=== PATIENT | male | born 1980 | race American Indian/Alaskan Native ===

== ENCOUNTER 2018-12-29 16:26 | Emergency (ER) | payer SELFPAY ==
[2018-12-29 16:54] VITALS: BP 125/81
--- NOTE | 2018-12-29 17:35 | Event Note ---
ED Screening Note Date of service: 12/29/18 Time: 17:05 ED Screening Note: Reports cp started 2 days ago to midsternal area. reports cough and chills. smokes once per week. Pain is 6/10 on/off without radiation. Denies N/V. Denies SOB. Denies recent surgery, hormonal therapy of long distance travel. Denies h/o Blood clots NL wob. A and ox3 . no acute distress This initial assessment/diagnostic orders/clinical plan/treatment(s) is/are subject to change based on patients health status, clinical progression and re- assessment by fellow clinical providers in the ED. Further treatment and workup at subsequent clinical providers discretion. Patient/guardian urged not to elope from the ED as their condition may be serious if not clinically assessed and managed. Initial orders include: xr, ekg labs
[2018-12-29] MEDS ORDERED: ASPIRIN 325 MG TAB PO ONE (17:37)
--- NOTE | 2018-12-29 18:04 | XRay Report ---
CHEST 2 VIEWS INDICATION / CLINICAL INFORMATION: MAIN: Chest Pain for 2 to 3 days. COMPARISON: None available. FINDINGS: SUPPORT DEVICES: None. HEART / MEDIASTINUM: No significant abnormality. LUNGS / PLEURA: No significant pulmonary or pleural abnormality. No pneumothorax. ADDITIONAL FINDINGS: No significant additional findings. IMPRESSION: 1. No significant abnormality. Signer Name: Tamy Dubon MD Signed: 12/29/2018 6:00 PM Workstation Name: [id number]
[2018-12-29 18:49] LABS: Basophils % (Auto) 0.8 % (0.0-1.8); Eosinophils # (Auto) 0.1 K/mm3 (0.0-0.4); Eosinophils % (Auto) 2.7 % (0.0-4.3); Hematocrit 37.4 % (35.5-45.6); Hemoglobin 12.7 gm/dl (11.8-15.2); Lymphocytes # (Auto) 0.8 K/mm3 (1.2-5.4); Lymphocytes % (Auto) 20.4 % (13.4-35.0); Mean Corpuscular HGB Conc 34 % (32-34); Mean Corpuscular Volume 98 fl (84-94); Monocytes # (Auto) 0.5 K/mm3 (0.0-0.8); Monocytes % (Auto) 12.8 % (0.0-7.3); Platelet Count 163 K/mm3 (140-440); Red Blood Count 3.83 M/mm3 (3.65-5.03); Red Cell Distribution Width 13.3 % (13.2-15.2)
[2018-12-29 19:12] LABS: Alanine Aminotransferase 21 units/L (7-56); Albumin 3.9 g/dL (3.9-5); BUN/Creatinine Ratio 8; Blood Urea Nitrogen 9 mg/dL (9-20); Hemolysis Index 16
[2018-12-29] MEDS ORDERED: LIDOCAINE VISCOUS 2% 15 ML ORAL LIQD PO ONE (19:46)
[2018-12-29] MEDS ORDERED: ALUM-MAG HYDROXIDE-SIMETHICONE 200-200-20MG/5ML ORAL LIQD 30 ML PO ONE (19:46)
--- NOTE | 2018-12-29 22:05 | Emergency Department Report ---
ED Chest Pain HPI - General Chief Complaint: Chest Pain Stated Complaint: SEVERE CHEST PAIN Time Seen by Provider: 12/29/18 17:30 Source: patient Mode of arrival: Ambulatory Limitations: No Limitations - History of Present Illness Initial Comments: Patient is a 38-year-old [place] male with no past medical history who presents to the ED with complaint of acute onset persistent anterior chest wall pain for the last 2 days. Patient states that the pain is worse with movement, inhalation, palpation or cough. Patient admits to smoking "a few cigarettes a week". Patient denies shortness of breath, dizziness, palpitation, fever, chills, cough, nausea, vomiting, abdominal pain, easiness, headache, fever, chills, heavy lifting or fall and syncope. MD Complaint: chest pain -: Sudden, days(s) (2) Onset: during rest, awoke with symptoms Pain Location: substernal Pain Radiation: none Severity: moderate Severity scale (0 -10): 5 Quality: aching, sharp Consistency: constant Improves With: nothing Worsens With: exertion, inspiration, palpation, movement re: denies: nausea, vomting, diaphoresis, dyspnea, sense of impending doom, other Other Symptoms: denies: cough, fever, syncope, rash, acid taste in mouth, leg swelling, palpitations, burping Treatments Prior to Arrival: none - Related Data On Oral Contraceptives: No Previous Rx's Medication Instructions Recorded Last Taken Type Naproxen [Naprosyn TAB] 375 mg PO BID #20 tablet 12/20/13 Unknown Rx Penicillin Vk [Veetids TAB] 500 mg PO QID #40 tablet 12/20/13 Unknown Rx Clindamycin [Clindamycin CAP] 300 mg PO BID #20 cap 12/22/13 Unknown Rx Naproxen 500 mg PO Q12H PRN #20 tablet 12/29/18 Unknown Rx raNITIdine HCl [Zantac] 150 mg PO Q12H #30 tablet 12/29/18 Unknown Rx traMADol [Ultram 50 MG tab] 50 mg PO Q6HR PRN #12 tablet 12/29/18 Unknown Rx Allergies Allergy/AdvReac Type Severity Reaction Status Date / Time No Known Allergies Allergy Unverified 12/20/13 09:35 Heart Score - HEART Score History: Slightly suspicious EKG: Normal Age: < 45 Risk factors: 1-2 risk factors Troponin: < normal limit HEART Score: 1 - Critical Actions Critical Actions: 0-3 pts:0.9-1.7%risk of adverse cardiac event.Candidate for discharge ED Review of Systems ROS: Stated complaint: SEVERE CHEST PAIN Other details as noted in HPI Constitutional: denies: chills, fever Eyes: denies: eye pain, eye discharge, vision change ENT: denies: ear pain, throat pain Respiratory: denies: cough, shortness of breath, wheezing Cardiovascular: chest pain (Anterior chest wall pain). denies: palpitations, dyspnea on exertion, syncope, paroxysmal nocturnal dyspnea Endocrine: no symptoms reported Gastrointestinal: denies: abdominal pain, nausea, vomiting, diarrhea, constipation, hematemesis, melena Genitourinary: denies: urgency, dysuria Musculoskeletal: denies: back pain, joint swelling, arthralgia Skin: denies: rash, lesions, change in color, pruritus Neurological: denies: headache, weakness, paresthesias Psychiatric: denies: anxiety, depression Hematological/Lymphatic: denies: easy bleeding, easy bruising ED Past Medical Hx - Past Medical History Previous Medical History?: No - Surgical History Past Surgical History?: No - Social History Smoking Status: Current Some Day Smoker Substance Use Type: Marijuana - Medications Home Medications: Home Medications Medication Instructions Recorded Confirmed Last Taken Type Naproxen [Naprosyn TAB] 375 mg PO BID #20 tablet 12/20/13 Unknown Rx Penicillin Vk [Veetids TAB] 500 mg PO QID #40 tablet 12/20/13 Unknown Rx Clindamycin [Clindamycin CAP] 300 mg PO BID #20 cap 12/22/13 Unknown Rx Naproxen 500 mg PO Q12H PRN #20 tablet 12/29/18 Unknown Rx raNITIdine HCl [Zantac] 150 mg PO Q12H #30 tablet 12/29/18 Unknown Rx traMADol [Ultram 50 MG tab] 50 mg PO Q6HR PRN #12 tablet 12/29/18 Unknown Rx ED Physical Exam - General Limitations: No Limitations General appearance: alert, in no apparent distress - Head Head exam: Present: atraumatic, normocephalic, normal inspection - Eye Eye exam: Present: normal appearance, PERRL, EOMI. Absent: scleral icterus, conjunctival injection Pupils: Present: normal accommodation - ENT ENT exam: Present: normal exam, normal orophraynx, mucous membranes moist, TM's normal bilaterally, normal external ear exam - Neck Neck exam: Present: normal inspection, full ROM. Absent: tenderness, meningismus, lymphadenopathy - Respiratory Respiratory exam: Present: normal lung sounds bilaterally, chest wall tenderness. Absent: respiratory distress, wheezes, rales, rhonchi, accessory muscle use, decreased breath sounds, prolonged expiratory - Cardiovascular Cardiovascular Exam: Present: regular rate, normal rhythm, normal heart sounds. Absent: systolic murmur, diastolic murmur, rubs, gallop - GI/Abdominal GI/Abdominal exam: Present: soft, normal bowel sounds. Absent: tenderness, guarding, rebound, hyperactive bowel sounds, hypoactive bowel sounds, mass - Rectal Rectal exam: Present: deferred - Extremities Exam Extremities exam: Present: normal inspection, full ROM, normal capillary refill - Back Exam Back exam: Present: normal inspection, full ROM. Absent: tenderness, CVA tenderness (R), muscle spasm, paraspinal tenderness - Neurological Exam Neurological exam: Present: alert, oriented X3, CN II-XII intact, normal gait, reflexes normal - Psychiatric Psychiatric exam: Present: normal affect, normal mood - Skin Skin exam: Present: warm, dry, intact, normal color. Absent: rash ED Course Vital Signs 12/29/18 16:50 Temperature 99.2 F Pulse Rate 82 Respiratory 18 Rate Blood Pressure 125/81 O2 Sat by Pulse 100 Oximetry - Reevaluation(s) Reevaluation #1: 12/29/18 22:14 This is a 38-year-old male who presented to the ED with anterior chest pain constantly for 2 days. Patient admits to smoking cigarettes, but denies any other past medical history. In the ED, patient is alert and oriented 3 and is not in distress with normal vital signs. Lab test results were reviewed and are all unremarkable including initial and repeat troponin levels. Chest x-ray shows no acute cardiopulmonary abnormalities. Patient was treated with GI cocktail, and also given aspirin. Patient has a heart score of 1, is PERC negative and with SENAIT of 0. Patient was discharged home on pain medications and antacids and advised to follow-up with his primary care physician in 3-5 days for reevaluation. Patient was also referred to the production superintendent bond trader Dr. Barnett for follow-up. Patient was advised to return to the ED immediately if symptoms get worse. SENAIT score - Senait Score Age > 65: (0) No Aspirin use within the Past 7 Days: (0) No 3 or more CAD Risk Factors: (0) No 2 or more Angina events in past 24 hrs: (0) No Known CAD with more than 50% Stenosis: (0) No Elevated Cardiac Markers: (0) No ST Deviation Greater than 0.5mm: (0) No SENAIT Score: 0 ED Medical Decision Making - Lab Data Result diagrams: 12/29/18 18:13 12/29/18 18:13 - Radiology Data Radiology results: report reviewed, image reviewed Chest x-ray shows no acute cardiopulmonary abnormalities. - Medical Decision Making This is a 38-year-old male who presented to the ED with anterior chest pain constantly for 2 days. Patient admits to smoking cigarettes, but denies any other past medical history. In the ED, patient is alert and oriented 3 and is not in distress with normal vital signs. Lab test results were reviewed and are all unremarkable including initial and repeat troponin levels. Chest x-ray shows no acute cardiopulmonary abnormalities. Patient was treated with GI cocktail, and also given aspirin. Patient has a heart score of 1, is PERC negative and with SENAIT of 0. Patient was discharged home on pain medications and antacids and advised to follow-up with his primary care physician in 3-5 days for reevaluation. Patient was also referred to the production superintendent bond trader Dr. Barnett for follow-up. Patient was advised to return to the ED immediately if symptoms get worse. - Differential Diagnosis ACS; Pneumonia; Muscle strain; GERD Critical care attestation.: If time is entered above; I have spent that time in minutes in the direct care of this critically ill patient, excluding procedure time. ED Disposition Clinical Impression: Chest pain in adult, Anterior chest wall pain GERD (gastroesophageal reflux disease) Qualifiers: Esophagitis presence: without esophagitis Qualified Code(s): K21.9 - Gastro- esophageal reflux disease without esophagitis Disposition: TO HOME OR SELFCARE Is pt being admited?: No Does the pt Need Aspirin: No Condition: Stable Instructions: Chest Pain (ED), Costochondritis (ED), Gastroesophageal Reflux Disease (ED) Additional Instructions: Take medications with food, drink plenty of fluids and follow-up with your primary care physician in 5-7 days for reevaluation. Return to the ED immediately if symptoms get worse. Consider following up with Dr. Barnett the production superintendent for outpatient evaluation. Consider quitting tobacco smoking. Prescriptions: Naproxen 500 mg PO Q12H PRN #20 tablet PRN Reason: Pain , Severe (7-10) traMADol [Ultram 50 MG tab] 50 mg PO Q6HR PRN #12 tablet PRN Reason: Pain raNITIdine HCl [Zantac] 150 mg PO Q12H #30 tablet Referrals: PRIMARY CARE, [Primary Care Provider] - 3-5 Days ARNOLDO BARNETT MD [Staff Physician] - 3-5 Days Time of Disposition: 22:02 Print Language: [place]
== END 2018-12-29 19:00 | disposition home or self-care (01) ==
LOC: ED 16:26
DX: K21.9 Gastro-esophageal reflux disease without esophagitis (principal); F17.200 Nicotine dependence, unspecified, uncomplicated; F12.90 Cannabis use, unspecified, uncomplicated; Z79.899 Other long term (current) drug therapy
CPT/HCPCS: 36415; 71046; 80053; 84484; 85025; 93005; 93010; 99284

== ENCOUNTER 2021-04-20 07:23 | Inpatient (IN) | payer SELFPAY ==
[2021-04-20] MEDS ORDERED: ONDANSETRON 4 MG/2 ML INJ IV ONE (08:49)
[2021-04-20] MEDS ORDERED: SODIUM CHLORIDE 0.9% 1000 ML 1,000 ML IV ONE (08:49)
[2021-04-20 09:15] LABS: Hematocrit 23.4 % (35.5-45.6); Hemoglobin 7.8 gm/dl (11.8-15.2); Mean Corpuscular HGB Conc 34 % (32-34); Mean Corpuscular Volume 94 fl (84-94); Platelet Count 263 K/mm3 (140-440); Red Cell Distribution Width 12.9 % (13.2-15.2)
--- NOTE | 2021-04-20 09:34 | XRay Report ---
CHEST 2 VIEWS INDICATION: Wheezing. COMPARISON: 12/29/2018 FINDINGS: Support devices: None. Heart: Within normal limits. Lungs/pleura: The lungs are hyperinflated which could represent mild emphysematous changes. No evide nce for mass lesion, infiltrate, pleural effusion or pneumothorax. Additional findings: Old granulomatous disease is noted and unchanged. IMPRESSION: No acute findings. Mild hyperinflation. Signer Name: Julio Jones Jr, MD Signed: 04/20/2021 9:30 AM Workstation Name: [id number]
--- NOTE | 2021-04-20 09:36 | Event Note ---
ED Screening Note Date of service: 04/20/21 Time: 09:00 ED Screening Note: 40-year-old -[place] male that appears to be acutely in ill presents to the emergency room for 3-week history of nausea vomiting and diarrhea. Patient states his throat feels dry. He has intermittent abdominal pain just prior to having a stool. States he has never had the symptoms before. He reports he has had a 40 pound weight loss since March 29, 2021 who. He states he is has 5-6 stools a day. Currently denies any past medical history takes no meds on a daily basis has no known drug allergies and has no primary care provider. Patient social history he smokes cigarettes and marijuana but last used on March 29, 2021. He denies any alcohol use or abuse. This initial assessment/diagnostic orders/clinical plan/treatment(s) is/are subject to change based on patients health status, clinical progression and re- assessment by fellow clinical providers in the ED. Further treatment and workup at subsequent clinical providers discretion. Patient/guardian urged not to elope from the ED as their condition may be serious if not clinically assessed and managed. Initial orders include:
[2021-04-20 09:37] LABS: Alanine Aminotransferase 16 units/L (7-56); Blood Urea Nitrogen 54 mg/dL (9-20); Hemolysis Index 7
[2021-04-20 09:46] LABS: BUN/Creatinine Ratio 11
--- NOTE | 2021-04-20 09:56 | Emergency Department Report ---
HPI - General Chief Complaint: Nausea/Vomiting/Diarrhea Time Seen by Provider: 04/20/21 08:48 - HPI HPI: 40-year-old male presents to the emergency department with complaint of a 2-week history of generalized weakness, nausea with vomiting, diarrhea, and unintended weight loss. He is a tobacco smoker but denies any illicit drug use. He has not smoked any cigarettes since March 29. He has lost 40 pounds unintentionally since this time as well. He has intermittent abdominal pain that occurs just prior to having a bowel movement. The patient will have 5-6 episodes of diarrhea and/or loose stools per day, as well as some intermittent nausea with vomiting. He otherwise denies any past medical history. No recent travel or sick contacts at home. He has not taken anything for his symptoms prior to presentation today. ED Past Medical Hx - Social History Smoking Status: Current Some Day Smoker Substance Use Type: Marijuana - Medications Home Medications: Home Medications Medication Instructions Recorded Confirmed Last Taken Type Naproxen [Naprosyn TAB] 375 mg PO BID #20 tablet 12/20/13 Unknown Rx Penicillin Vk [Veetids TAB] 500 mg PO QID #40 tablet 12/20/13 Unknown Rx Clindamycin [Clindamycin CAP] 300 mg PO BID #20 cap 12/22/13 Unknown Rx Naproxen 500 mg PO Q12H PRN #20 tablet 12/29/18 Unknown Rx raNITIdine HCL [Zantac] 150 mg PO Q12H #30 tablet 12/29/18 Unknown Rx traMADoL [Ultram 50 MG tab] 50 mg PO Q6HR PRN #12 tablet 12/29/18 Unknown Rx ED Review of Systems ROS: Stated complaint: VOMITING/DIARRHEA (3WKS) Other details as noted in HPI Comment: All other systems reviewed and negative Constitutional: weakness. denies: fever Eyes: denies: eye pain, vision change ENT: denies: ear pain, throat pain Respiratory: denies: cough, shortness of breath Cardiovascular: denies: chest pain, palpitations Endocrine: unexplained weight loss Gastrointestinal: abdominal pain, nausea, vomiting, diarrhea Genitourinary: denies: dysuria, discharge Musculoskeletal: denies: back pain, arthralgia Skin: denies: rash, lesions Neurological: denies: headache, numbness, paresthesias Physical Exam - Physical Exam Vital Signs: Vital Signs 04/20/21 08:40 Temperature 99.3 F Pulse Rate 96 H Respiratory 20 Rate Blood Pressure 162/95 [Left] O2 Sat by Pulse 100 Oximetry Physical Exam: GENERAL: The patient is well-developed well-nourished. HENT: Normocephalic. Atraumatic. Patient has moist mucous membranes. EYES: Extraocular motions are intact. NECK: Supple. Trachea is midline. CHEST/LUNGS: Clear to auscultation. There is no respiratory distress noted. HEART/CARDIOVASCULAR: Regular. There is no tachycardia. There is no murmur. ABDOMEN: Abdomen is soft, nontender. Patient has hyperactive bowel sounds. There is no abdominal distention. SKIN: Skin is warm and dry. NEURO: The patient is awake, alert, and oriented. The patient is cooperative. The patient has no focal neurologic deficits. Normal speech. MUSCULOSKELETAL: There is no tenderness or deformity. There is no limitation range of motion. ED Course Vital Signs 04/20/21 08:40 Temperature 99.3 F Pulse Rate 96 H Respiratory 20 Rate Blood Pressure 162/95 [Left] O2 Sat by Pulse 100 Oximetry - Consultations Consultation #1: 04/20/21 11:48 I spoke to the slot floorman on-call, Dr. Corral, and he will consult on the patient. ED Medical Decision Making - Lab Data Result diagrams: 04/20/21 08:57 04/20/21 08:57 Lab Results 04/20/21 04/20/21 04/20/21 Range/Units 08:57 08:57 10:46 WBC 4.3 L (4.5-11.0) K/mm3 RBC 2.50 L (3.65-5.03) M/mm3 Hgb 7.8 L (11.8-15.2) gm/dl Hct 23.4 L (35.5-45.6) % MCV 94 (84-94) fl MCH 31 (28-32) pg MCHC 34 (32-34) % RDW 12.9 L (13.2-15.2) % Plt Count 263 (140-440) K/mm3 Add Manual Diff Complete Total Counted 100 Seg Neuts % (Manual) 68.0 (40.0-70.0) % Band Neutrophils % 0 % Lymphocytes % (Manual) 20.0 (13.4-35.0) % Reactive Lymphs % (Man) 0 % Monocytes % (Manual) 11.0 H (0.0-7.3) % Eosinophils % (Manual) 1.0 (0.0-4.3) % Basophils % (Manual) 0 (0.0-1.8) % Metamyelocytes % 0 % Myelocytes % 0 % Promyelocytes % 0 % Blast Cells % 0 % Nucleated RBC % Not Reportable Seg Neutrophils # Man 2.9 (1.8-7.7) K/mm3 Band Neutrophils # 0.0 K/mm3 Lymphocytes # (Manual) 0.9 L (1.2-5.4) K/mm3 Abs React Lymphs (Man) 0.0 K/mm3 Monocytes # (Manual) 0.5 (0.0-0.8) K/mm3 Eosinophils # (Manual) 0.0 (0.0-0.4) K/mm3 Basophils # (Manual) 0.0 (0.0-0.1) K/mm3 Metamyelocytes # 0.0 K/mm3 Myelocytes # 0.0 K/mm3 Promyelocytes # 0.0 K/mm3 Blast Cells # 0.0 K/mm3 WBC Morphology Not Reportable Hypersegmented Neuts Not Reportable Hyposegmented Neuts Not Reportable Hypogranular Neuts Not Reportable Smudge Cells Not Reportable Toxic Granulation Not Reportable Toxic Vacuolation Not Reportable Dohle Bodies Not Reportable Pelger-Huet Anomaly Not Reportable Karishma Rods Not Reportable Platelet Estimate Consistent w auto Clumped Platelets Not Reportable Plt Clumps, EDTA Not Reportable Large Platelets Not Reportable Giant Platelets Not Reportable Platelet Satelliting Not Reportable Plt Morphology Comment Not Reportable RBC Morphology Not Reportable Dimorphic RBCs Not Reportable Polychromasia Not Reportable Hypochromasia 1+ Poikilocytosis Not Reportable Anisocytosis Not Reportable Microcytosis Not Reportable Macrocytosis Not Reportable Spherocytes Not Reportable Pappenheimer Bodies Not Reportable Sickle Cells Not Reportable Target Cells Not Reportable Tear Drop Cells Not Reportable Ovalocytes Not Reportable Helmet Cells Not Reportable Bragg-Gowen Bodies Not Reportable [place] Rings Not Reportable [place] Cells Not Reportable Bite Cells Not Reportable Crenated Cell Not Reportable Elliptocytes Not Reportable Acanthocytes (Spur) Not Reportable Rouleaux Not Reportable Hemoglobin C Crystals Not Reportable Schistocytes Not Reportable Malaria parasites Not Reportable Angus Bodies Not Reportable Hem Pathologist Commnt No Sodium 137 (137-145) mmol/L Potassium 5.6 H (3.6-5.0) mmol/L Chloride 105.9 (98-107) mmol/L Carbon Dioxide 17 L (22-30) mmol/L Anion Gap 20 mmol/L BUN 54 H (9-20) mg/dL Creatinine 4.7 H (0.8-1.3) mg/dL Estimated GFR 17 ml/min BUN/Creatinine Ratio 11 % Glucose 100 (75-100) mg/dL Calcium 9.0 (8.4-10.2) mg/dL Phosphorus (2.5-4.5) mg/dL Magnesium (1.7-2.3) mg/dL Total Bilirubin < 0.20 (0.1-1.2) mg/dL AST 30 (5-40) units/L ALT 16 (7-56) units/L Alkaline Phosphatase 61 (35-129) units/L Troponin T < 0.010 (0.00-0.029) ng/mL Total Protein 7.7 (6.3-8.2) g/dL Albumin 3.0 L (3.9-5) g/dL Albumin/Globulin Ratio 0.6 % Lipase 36 (13-60) units/L TSH (0.270-4.200) mlU/mL 04/20/21 04/20/21 Range/Units 10:46 Unknown WBC (4.5-11.0) K/mm3 RBC (3.65-5.03) M/mm3 Hgb (11.8-15.2) gm/dl Hct (35.5-45.6) % MCV (84-94) fl MCH (28-32) pg MCHC (32-34) % RDW (13.2-15.2) % Plt Count (140-440) K/mm3 Add Manual Diff Total Counted Seg Neuts % (Manual) (40.0-70.0) % Band Neutrophils % % Lymphocytes % (Manual) (13.4-35.0) % Reactive Lymphs % (Man) % Monocytes % (Manual) (0.0-7.3) % Eosinophils % (Manual) (0.0-4.3) % Basophils % (Manual) (0.0-1.8) % Metamyelocytes % % Myelocytes % % Promyelocytes % % Blast Cells % % Nucleated RBC % Seg Neutrophils # Man (1.8-7.7) K/mm3 Band Neutrophils # K/mm3 Lymphocytes # (Manual) (1.2-5.4) K/mm3 Abs React Lymphs (Man) K/mm3 Monocytes # (Manual) (0.0-0.8) K/mm3 Eosinophils # (Manual) (0.0-0.4) K/mm3 Basophils # (Manual) (0.0-0.1) K/mm3 Metamyelocytes # K/mm3 Myelocytes # K/mm3 Promyelocytes # K/mm3 Blast Cells # K/mm3 WBC Morphology Hypersegmented Neuts Hyposegmented Neuts Hypogranular Neuts Smudge Cells Toxic Granulation Toxic Vacuolation Dohle Bodies Pelger-Huet Anomaly Karishma Rods Platelet Estimate Clumped Platelets Plt Clumps, EDTA Large Platelets Giant Platelets Platelet Satelliting Plt Morphology Comment RBC Morphology Dimorphic RBCs Polychromasia Hypochromasia Poikilocytosis Anisocytosis Microcytosis Macrocytosis Spherocytes Pappenheimer Bodies Sickle Cells Target Cells Tear Drop Cells Ovalocytes Helmet Cells Bragg-Gowen Bodies [place] Rings [place] Cells Bite Cells Crenated Cell Elliptocytes Acanthocytes (Spur) Rouleaux Hemoglobin C Crystals Schistocytes Malaria parasites Angus Bodies Hem Pathologist Commnt Sodium (137-145) mmol/L Potassium (3.6-5.0) mmol/L Chloride (98-107) mmol/L Carbon Dioxide (22-30) mmol/L Anion Gap mmol/L BUN (9-20) mg/dL Creatinine (0.8-1.3) mg/dL Estimated GFR ml/min BUN/Creatinine Ratio % Glucose (75-100) mg/dL Calcium (8.4-10.2) mg/dL Phosphorus 4.20 (2.5-4.5) mg/dL Magnesium 1.90 (1.7-2.3) mg/dL Total Bilirubin (0.1-1.2) mg/dL AST (5-40) units/L ALT (7-56) units/L Alkaline Phosphatase (35-129) units/L Troponin T (0.00-0.029) ng/mL Total Protein (6.3-8.2) g/dL Albumin (3.9-5) g/dL Albumin/Globulin Ratio % Lipase (13-60) units/L TSH 3.120 (0.270-4.200) mlU/mL - EKG Data -: EKG Interpreted by Me EKG shows normal: sinus rhythm, axis, intervals, QRS complexes (LVH), ST-T waves Rate: normal - EKG Data When compared to previous EKG there are: previous EKG unavailable Interpretation: LVH - Radiology Data Radiology results: report reviewed, image reviewed interpreted by me: Chest x-ray does not show any acute process. There are no pleural effusions, obvious pneumonia and there is no pneumothorax. No widened mediastinum. CT ABDOMEN AND PELVIS WITHOUT CONTRAST INDICATION / CLINICAL INFORMATION: Abd pain. TECHNIQUE: Axial CT images were obtained through the abdomen and pelvis without IV contrast. Sagittal and coronal reformatted images. All CT scans at this location are performed using CT dose reduction for ALARA by means of automated exposure control. COMPARISON: None available. FINDINGS: LOWER CHEST: There is subtle groundglass attenuation throughout the lung bases. No discrete infiltrate, mass, or effusion. No significant interstitial disease. LIVER: The liver is mildly enlarged but no parenchymal disease or focal mass is detected. GALLBLADDER: The gallbladder is contracted with no obvious abnormality. BILE DUCTS: No significant abnormality. PANCREAS: No significant abnormality. SPLEEN: No significant abnormality. The spleen measures 9 cm in length. ADRENALS: No si gnificant abnormality. KIDNEYS: There are a few scattered punctate renal calyceal stones in both kidneys. No ureteral stones, hydronephrosis, cystic disease or mass. STOMACH and SMALL BOWEL: No significant abnormality. COLON: No significant abnormality. APPENDIX: Not identified, correlate with surgical history. No inflammatory changes in the right lower quadrant. PERITONEUM: No free fluid. No free air. No fluid collection. LYMPH NODES: No significant adenopathy. AORTA and ARTERIES: No significant abnormality. IVC and VEINS: No significant abnormality. URINARY BLADDER: No significant abnormality. REPRODUCTIVE ORGANS: No significant abnormality. ADDITIONAL FINDINGS: None. SKELETAL SYSTEM: No significant abnormality. IMPRESSION: No acute inflammatory process is appreciated in the abdomen or pelvis. Punctate bilateral nephrolithiasis, nonobstructing. Mild hepatomegaly but no obvious parenchymal disease or mass. There is subtle groundglass attenuation in both lung bases which is a nonspecific finding. No evidence for mass, pneumonia or interstitial disease. This may represent smokers related change, correlate with the patient's history. - Medical Decision Making This patient presents to the emergency department with a complaint of a 2 to 3- week history of nausea, vomiting, diarrhea and unintentional weight loss. Labs shows acute renal failure with a GFR of 17, creatinine of 4.7, hyperkalemia with potassium of 5.6, and anemia with hemoglobin of 7.8. Patient has been given IV fluid resuscitation, antiemetic, and Kayexalate. Nephrology has been contacted and consulted. The patient will be admitted to the hospital for further evaluation and treatment was accepted for admission by the hospitalist, Dr. Christian. Critical Care Time: No Critical care attestation.: If time is entered above; I have spent that time in minutes in the direct care of this critically ill patient, excluding procedure time. ED Disposition Clinical Impression: Dehydration Nausea & vomiting Qualifiers: Vomiting type: unspecified Qualified Code(s): R11.2 - Nausea with vomiting, unspecified Diarrhea Qualifiers: Diarrhea type: unspecified type Qualified Code(s): R19.7 - Diarrhea, unspecified Acute renal failure Qualifiers: Acute renal failure type: unspecified Qualified Code(s): N17.9 - Acute kidney failure, unspecified Anemia Qualifiers: Anemia type: unspecified type Qualified Code(s): D64.9 - Anemia, unspecified Hypertension Qualifiers: Hypertension type: primary hypertension Qualified Code(s): I10 - Essential (primary) hypertension Disposition: 09 ADMITTED INPATIENT Is pt being admited?: Yes Condition: Fair Instructions: Hypertension (ED) Referrals: PRIMARY CAREMD [Primary Care Provider] - 3-5 Days Time of Disposition: 11:46
[2021-04-20 10:09] LABS: Basophils % (Manual) 0 % (0.0-1.8); Total Cells Counted 100
[2021-04-20 10:10] LABS: Hypochromasia 1+; Platelet Estimate Consistent w Auto
--- NOTE | 2021-04-20 10:52 | Cat Scan Report ---
CT ABDOMEN AND PELVIS WITHOUT CONTRAST INDICATION / CLINICAL INFORMATION: Abd pain. TECHNIQUE: Axial CT images were obtained through the abdomen and pelvis without IV contrast. Sagittal and sheridan l reformatted images. All CT scans at this location are performed using CT dose reduction for ALARA b y means of automated exposure control. COMPARISON: None available. FINDINGS: LOWER CHEST: There is subtle groundglass attenuation throughout the lung bases. No discrete infiltrat e, mass, or effusion. No significant interstitial disease. LIVER: The liver is mildly enlarged but no parenchymal disease or focal mass is detected. GALLBLADDER: The gallbladder is contracted with no obvious abnormality. BILE DUCTS: No significant abnormality. PANCREAS: No significant abnormality. SPLEEN: No significant abnormality. The spleen measures 9 cm in length. ADRENALS: No significant abnormality. KIDNEYS: There are a few scattered punctate renal calyceal stones in both kidneys. No ureteral stones , hydronephrosis, cystic disease or mass. STOMACH and SMALL BOWEL: No significant abnormality. COLON: No significant abnormality. APPENDIX: Not identified, correlate with surgical history. No inflammatory changes in the right lower quadrant. PERITONEUM: No free fluid. No free air. No fluid collection. LYMPH NODES: No significant adenopathy. AORTA and ARTERIES: No significant abnormality. IVC and VEINS: No significant abnormality. URINARY BLADDER: No significant abnormality. REPRODUCTIVE ORGANS: No significant abnormality. ADDITIONAL FINDINGS: None. SKELETAL SYSTEM: No significant abnormality. IMPRESSION: No acute inflammatory process is appreciated in the abdomen or pelvis. Punctate bilateral nephrolithiasis, nonobstructing. Mild hepatomegaly but no obvious parenchymal disease or mass. There is subtle groundglass attenuation in both lung bases which is a nonspecific finding. No evidenc e for mass, pneumonia or interstitial disease. This may represent smokers related change, correlate w ith the patient's history. Signer Name: Julio Jones Jr, MD Signed: 04/20/2021 10:48 AM Workstation Name: [id number]
[2021-04-20] MEDS ORDERED: ALBUTEROL 2.5 MG/3 ML NEBU IH ONE (11:01)
[2021-04-20] MEDS ORDERED: SODIUM POLYSTYRENE 15 GM/60 ML ORAL LIQD PO ONE (11:01)
--- NOTE | 2021-04-20 13:39 | Consultation ---
History of Present Illness - Reason for Consult Consult date: 04/20/21 acute renal failure - History of Present Illness patient is 40 year old male was admitted for worsening diarrhea and weakness, he also mentioned unintentional weight loss, he was found to have abnormal kidney function with hyperkalemia and renal consult was requested. Medications and Allergies Allergies Allergy/AdvReac Type Severity Reaction Status Date / Time No Known Allergies Allergy Verified 04/20/21 08:43 Home Medications Medication Instructions Recorded Confirmed Last Taken Type Naproxen [Naprosyn TAB] 375 mg PO BID #20 tablet 12/20/13 Unknown Rx Penicillin Vk [Veetids TAB] 500 mg PO QID #40 tablet 12/20/13 Unknown Rx Clindamycin [Clindamycin CAP] 300 mg PO BID #20 cap 12/22/13 Unknown Rx Naproxen 500 mg PO Q12H PRN #20 tablet 12/29/18 Unknown Rx raNITIdine HCL [Zantac] 150 mg PO Q12H #30 tablet 12/29/18 Unknown Rx traMADoL [Ultram 50 MG tab] 50 mg PO Q6HR PRN #12 tablet 12/29/18 Unknown Rx Review of Systems All systems: negative (diarrhea) Exam - Vital Signs Vital signs: Vital Signs Temp Pulse Resp BP Pulse Ox 99.3 F 96 H 20 162/95 100 04/20/21 08:40 04/20/21 08:40 04/20/21 08:40 04/20/21 08:40 04/20/21 08:40 Results - Lab Results 04/20/21 08:57 04/20/21 08:57 Most recent lab results Calcium 9.0 mg/dL (8.4-10.2) 04/20/21 08:57 Phosphorus 4.20 mg/dL (2.5-4.5) 04/20/21 Unknown Magnesium 1.90 mg/dL (1.7-2.3) 04/20/21 Unknown Assessment and Plan Acute kidney injury, likely prerenal azotemia Hyperkalemia Anemia Diarrhea weight loss The patient received hyperK cocktail in the ED, will repeat BMP ~1600 will start sodium bicarb gtt 150 meq with D5W @ 125 cc/h will check ruine luytes will check renal US renally dose meds strict I&O daily weight Dwight miller MD [phone]
--- NOTE | 2021-04-20 14:19 | Event Note ---
Date: 04/20/21
--- NOTE | 2021-04-20 14:19 | History and Physical Report ---
History of Present Illness Date of examination: 04/20/21 Date of admission: April 20, 2021 Chief complaint: Nausea vomiting and diarrhea for 2 weeks History of present illness: 40-year-old -[place] male with no significant past medical history and no known chronic kidney disease comes in for persistent vomiting and diarrhea and weight loss for last 2 weeks. Patient says he lost about 40 pounds unintentionally since last 2 weeks. Patient has been having 4-5 episodes of vomiting per day and 4-5 episodes of loose stools per day. No abdominal pain. No recent travel. No fever or chills. In the emergency room patient's BUN/creatinine was high at 54/4.7. -Past medical history none -past surgical history none - Social History Smoking Status: Current Some Day Smoker Substance Use Type: Marijuana -family history -- Htn Review of Systems ROS: Stated complaint: VOMITING/DIARRHEA (2WKS) Other details as noted in HPI Comment: All other systems reviewed and negative Constitutional: weakness. denies: fever Eyes: denies: eye pain, vision change ENT: denies: ear pain, throat pain Respiratory: denies: cough, shortness of breath Cardiovascular: denies: chest pain, palpitations Endocrine: unexplained weight loss Gastrointestinal: abdominal pain, nausea, vomiting, diarrhea Genitourinary: denies: dysuria, discharge Musculoskeletal: denies: back pain, arthralgia Skin: denies: rash, lesions Neurological: denies: headache, numbness, paresthesias Medications and Allergies Allergies Allergy/AdvReac Type Severity Reaction Status Date / Time No Known Allergies Allergy Verified 04/20/21 08:43 Home Medications Medication Instructions Recorded Confirmed Last Taken Type Naproxen [Naprosyn TAB] 375 mg PO BID #20 tablet 12/20/13 04/20/21 Unknown Rx Penicillin Vk [Veetids TAB] 500 mg PO QID #40 tablet 12/20/13 04/20/21 Unknown Rx Clindamycin [Clindamycin CAP] 300 mg PO BID #20 cap 12/22/13 04/20/21 Unknown Rx Naproxen 500 mg PO Q12H PRN #20 tablet 12/29/18 04/20/21 Unknown Rx raNITIdine HCL [Zantac] 150 mg PO Q12H #30 tablet 12/29/18 04/20/21 Unknown Rx traMADoL [Ultram 50 MG tab] 50 mg PO Q6HR PRN #12 tablet 12/29/18 04/20/21 Unknown Rx Active Meds: Active Medications Sodium Bicarbonate 150 meq/ (Dextrose) 1,150 mls @ 125 mls/hr IV DIRECT SANTOS Exam - Constitutional Vitals: Temp Pulse Resp BP Pulse Ox 99.3 F 96 H 20 162/95 99 04/20/21 08:40 04/20/21 08:40 04/20/21 08:40 04/20/21 08:40 04/20/21 12:00 General appearance: Present: no acute distress, well-nourished - EENT Eyes: Present: PERRL ENT: hearing intact, clear oral mucosa - Neck Neck: Present: supple, normal ROM - Respiratory Respiratory effort: normal Respiratory: bilateral: CTA - Cardiovascular Heart rate: 78 Rhythm: regular Heart Sounds: Present: S1 & S2. Absent: rub, click - Extremities Extremities: pulses symmetrical, No edema Peripheral Pulses: within normal limits - Abdominal General gastrointestinal: Present: soft, non-tender, non-distended, normal bowel sounds Male genitourinary: Present: normal - Integumentary Integumentary: Present: clear, warm, dry - Musculoskeletal Musculoskeletal: gait normal, strength equal bilaterally - Psychiatric Psychiatric: appropriate mood/affect, intact judgment & insight - Neurologic Neurologic: CNII-XII intact, moves all extremities - Allied Health Allied health notes reviewed: nursing, case management HEART Score - HEART Score Troponin: Troponin T < 0.010 ng/mL (0.00-0.029) 04/20/21 10:46 Results - Labs CBC & Chem 7: 04/20/21 08:57 04/20/21 15:41 Labs: Laboratory Last Values WBC 4.3 K/mm3 (4.5-11.0) L 04/20/21 08:57 RBC 2.50 M/mm3 (3.65-5.03) L 04/20/21 08:57 Hgb 7.8 gm/dl (11.8-15.2) L 04/20/21 08:57 Hct 23.4 % (35.5-45.6) L 04/20/21 08:57 MCV 94 fl (84-94) 04/20/21 08:57 MCH 31 pg (28-32) 04/20/21 08:57 MCHC 34 % (32-34) 04/20/21 08:57 RDW 12.9 % (13.2-15.2) L 04/20/21 08:57 Plt Count 263 K/mm3 (140-440) 04/20/21 08:57 Add Manual Diff Complete 04/20/21 08:57 Total Counted 100 04/20/21 08:57 Seg Neuts % (Manual) 68.0 % (40.0-70.0) 04/20/21 08:57 Band Neutrophils % 0 % 04/20/21 08:57 Lymphocytes % (Manual) 20.0 % (13.4-35.0) 04/20/21 08:57 Reactive Lymphs % (Man) 0 % 04/20/21 08:57 Monocytes % (Manual) 11.0 % (0.0-7.3) H 04/20/21 08:57 Eosinophils % (Manual) 1.0 % (0.0-4.3) 04/20/21 08:57 Basophils % (Manual) 0 % (0.0-1.8) 04/20/21 08:57 Metamyelocytes % 0 % 04/20/21 08:57 Myelocytes % 0 % 04/20/21 08:57 Promyelocytes % 0 % 04/20/21 08:57 Blast Cells % 0 % 04/20/21 08:57 Nucleated RBC % Not Reportable 04/20/21 08:57 Seg Neutrophils # Man 2.9 K/mm3 (1.8-7.7) 04/20/21 08:57 Band Neutrophils # 0.0 K/mm3 04/20/21 08:57 Lymphocytes # (Manual) 0.9 K/mm3 (1.2-5.4) L 04/20/21 08:57 Abs React Lymphs (Man) 0.0 K/mm3 04/20/21 08:57 Monocytes # (Manual) 0.5 K/mm3 (0.0-0.8) 04/20/21 08:57 Eosinophils # (Manual) 0.0 K/mm3 (0.0-0.4) 04/20/21 08:57 Basophils # (Manual) 0.0 K/mm3 (0.0-0.1) 04/20/21 08:57 Metamyelocytes # 0.0 K/mm3 04/20/21 08:57 Myelocytes # 0.0 K/mm3 04/20/21 08:57 Promyelocytes # 0.0 K/mm3 04/20/21 08:57 Blast Cells # 0.0 K/mm3 04/20/21 08:57 WBC Morphology Not Reportable 04/20/21 08:57 Hypersegmented Neuts Not Reportable 04/20/21 08:57 Hyposegmented Neuts Not Reportable 04/20/21 08:57 Hypogranular Neuts Not Reportable 04/20/21 08:57 Smudge Cells Not Reportable 04/20/21 08:57 Toxic Granulation Not Reportable 04/20/21 08:57 Toxic Vacuolation Not Reportable 04/20/21 08:57 Dohle Bodies Not Reportable 04/20/21 08:57 Pelger-Huet Anomaly Not Reportable 04/20/21 08:57 Karishma Rods Not Reportable 04/20/21 08:57 Platelet Estimate Consistent w auto 04/20/21 08:57 Clumped Platelets Not Reportable 04/20/21 08:57 Plt Clumps, EDTA Not Reportable 04/20/21 08:57 Large Platelets Not Reportable 04/20/21 08:57 Giant Platelets Not Reportable 04/20/21 08:57 Platelet Satelliting Not Reportable 04/20/21 08:57 Plt Morphology Comment Not Reportable 04/20/21 08:57 RBC Morphology Not Reportable 04/20/21 08:57 Dimorphic RBCs Not Reportable 04/20/21 08:57 Polychromasia Not Reportable 04/20/21 08:57 Hypochromasia 1+ 04/20/21 08:57 Poikilocytosis Not Reportable 04/20/21 08:57 Anisocytosis Not Reportable 04/20/21 08:57 Microcytosis Not Reportable 04/20/21 08:57 Macrocytosis Not Reportable 04/20/21 08:57 Spherocytes Not Reportable 04/20/21 08:57 Pappenheimer Bodies Not Reportable 04/20/21 08:57 Sickle Cells Not Reportable 04/20/21 08:57 Target Cells Not Reportable 04/20/21 08:57 Tear Drop Cells Not Reportable 04/20/21 08:57 Ovalocytes Not Reportable 04/20/21 08:57 Helmet Cells Not Reportable 04/20/21 08:57 Bragg-Poulan Bodies Not Reportable 04/20/21 08:57 [place] Rings Not Reportable 04/20/21 08:57 [place] Cells Not Reportable 04/20/21 08:57 Bite Cells Not Reportable 04/20/21 08:57 Crenated Cell Not Reportable 04/20/21 08:57 Elliptocytes Not Reportable 04/20/21 08:57 Acanthocytes (Spur) Not Reportable 04/20/21 08:57 Rouleaux Not Reportable 04/20/21 08:57 Hemoglobin C Crystals Not Reportable 04/20/21 08:57 Schistocytes Not Reportable 04/20/21 08:57 Malaria parasites Not Reportable 04/20/21 08:57 Angus Bodies Not Reportable 04/20/21 08:57 Hem Pathologist Commnt No 04/20/21 08:57 Sodium 137 mmol/L (137-145) 04/20/21 08:57 Potassium 5.6 mmol/L (3.6-5.0) H 04/20/21 08:57 Chloride 105.9 mmol/L (98-107) 04/20/21 08:57 Carbon Dioxide 17 mmol/L (22-30) L 04/20/21 08:57 Anion Gap 20 mmol/L 04/20/21 08:57 BUN 54 mg/dL (9-20) H 04/20/21 08:57 Creatinine 4.7 mg/dL (0.8-1.3) H 04/20/21 08:57 Estimated GFR 17 ml/min 04/20/21 08:57 BUN/Creatinine Ratio 11 % 04/20/21 08:57 Glucose 100 mg/dL (75-100) 04/20/21 08:57 Calcium 9.0 mg/dL (8.4-10.2) 04/20/21 08:57 Phosphorus 4.20 mg/dL (2.5-4.5) 04/20/21 Unknown Magnesium 1.90 mg/dL (1.7-2.3) 04/20/21 Unknown Total Bilirubin < 0.20 mg/dL (0.1-1.2) 04/20/21 08:57 AST 30 units/L (5-40) 04/20/21 08:57 ALT 16 units/L (7-56) 04/20/21 08:57 Alkaline Phosphatase 61 units/L (35-129) 04/20/21 08:57 Troponin T < 0.010 ng/mL (0.00-0.029) 04/20/21 10:46 Total Protein 7.7 g/dL (6.3-8.2) 04/20/21 08:57 Albumin 3.0 g/dL (3.9-5) L 04/20/21 08:57 Albumin/Globulin Ratio 0.6 % 04/20/21 08:57 Lipase 36 units/L (13-60) 04/20/21 08:57 TSH 3.120 mlU/mL (0.270-4.200) 04/20/21 10:46 Short CBC 04/20/21 Range/Units 08:57 WBC 4.3 L (4.5-11.0) K/mm3 Hgb 7.8 L (11.8-15.2) gm/dl Hct 23.4 L (35.5-45.6) % Plt Count 263 (140-440) K/mm3 BMP 04/20/21 04/20/21 08:57 15:41 Sodium 137 135 L Potassium 5.6 H 4.8 Chloride 105.9 104.8 Carbon Dioxide 17 L 17 L BUN 54 H 56 H Creatinine 4.7 H 5.0 H Glucose 100 151 H Calcium 9.0 8.8 Cardiac Enzymes 04/20/21 Range/Units 10:46 Troponin T < 0.010 (0.00-0.029) ng/mL Liver Function 04/20/21 Range/Units 08:57 Total Bilirubin < 0.20 (0.1-1.2) mg/dL AST 30 (5-40) units/L ALT 16 (7-56) units/L Alkaline Phosphatase 61 (35-129) units/L Albumin 3.0 L (3.9-5) g/dL - Imaging and Cardiology Imaging and Cardiology: Chest x-ray No acute findings Mild hyperinflation Abdominal by pelvis CT No acute inflammatory process is appreciated. Kidney showed few scattered punctate renal calyceal stones in both kidneys no ureteric stones hydronephrosis or cystic disease or mass. Assessment and Plan Advance Directives: Yes (Full code) VTE prophylaxis?: Chemical Plan of care discussed with patient/family: Yes - Patient Problems (1) Acute gastroenteritis Current Visit: Yes Status: Acute Plan to address problem: Etiology unclear Possible uremia Stool cultures and rule out C. difficile IV Zofran and IV fluids for now There is a danger going into volume overload if there is no urine output (2) BILLIE (acute kidney injury) Current Visit: Yes Status: Acute Plan to address problem: IV fluids for now Possible ATN Possible underlying chronic kidney disease Nephrology consulted (3) Hypertension Current Visit: Yes Status: Acute Plan to address problem: Borderline high Will initiate blood pressure medications if persistently high (4) Dehydration Current Visit: Yes Status: Acute Plan to address problem: IV fluids for now (5) Anemia Current Visit: Yes Status: Chronic Qualifiers: Anemia type: unspecified type Qualified Code(s): D64.9 - Anemia, unspecified Plan to address problem: Possibly secondary to chronic kidney disease Anemia work-up (6) DVT prophylaxis Current Visit: Yes Status: Acute Plan to address problem: 1 heparin and GI prophylaxis (7) Advance care planning Current Visit: Yes Status: Acute Plan to address problem: Disease education collected, care plan discussed, diagnosis discussed, prognosis discussed,. Patient is full code. Patient acknowledged understanding and in agreement with care plan. +30 minutes
[2021-04-20] MEDS ORDERED: oxyCODONE /ACETAMINOPHEN 5-325MG TAB PO PRN (15:00)
[2021-04-20] MEDS ORDERED: ONDANSETRON 4 MG/2 ML INJ IV PRN (15:00)
[2021-04-20 16:12] LABS: Calcium 8.8 mg/dL (8.4-10.2)
[2021-04-20] MEDS: SODIUM BICARBONATE 150 MEQ in DEXTROSE 5% IN WATER 1,000 ML IV SCH (21:13)
[2021-04-20] MEDS ORDERED: HEPARIN 5,000 UNIT/1 ML VIAL SUB-Q SCH (22:00)
[2021-04-21] MEDS: SODIUM BICARBONATE 150 MEQ in DEXTROSE 5% IN WATER 1,000 ML IV SCH ×2 (05:47→17:54)
[2021-04-21 06:18] LABS: Hemoglobin 6.5 gm/dl (11.8-15.2); Mean Corpuscular HGB Conc 34 % (32-34); Mean Corpuscular Volume 94 fl (84-94); Platelet Count 226 K/mm3 (140-440); Red Blood Count 2.06 M/mm3 (3.65-5.03); Red Cell Distribution Width 12.7 % (13.2-15.2)
[2021-04-21] MEDS ORDERED: SODIUM CHLORIDE 0.9% 1000 ML 1,000 ML IV SCH (07:00)
[2021-04-21 07:08] LABS: Hematocrit 19.4 % (35.5-45.6)
--- NOTE | 2021-04-21 08:49 | Electrocardiograph Report ---
[facility] Test Date: 2021-04-20 Test Time: 12:10:52 Pat Name: YOKASTA HOLDER Department: Room: A480 Gender: M [place] [employer] Member: STEVEN : 1980 Requested By: ASIA LEMON Order Number: [id number] Reading MD: Lalo Rodrigues Measurements Intervals [place] Rate: 76 P: 63 NC: 144 QRS: 64 QRSD: 79 T: 62 QT: 374 QTc: 420 Interpretive Statements Sinus rhythm Probable left atrial enlargement Left ventricular hypertrophy No previous ECG available for comparison Electronically Signed On 04-21-2021 8:49:23 EST by Lalo Rodrigues
[2021-04-21] MEDS: HEPARIN 5,000 UNIT/1 ML VIAL SUB-Q SCH ×2 (09:30→17:55)
[2021-04-21 10:31] LABS: Basophils % (Manual) 0 % (0.0-1.8); Eosinophils % (Manual) 0 % (0.0-4.3); Total Cells Counted 100
[2021-04-21 10:32] LABS: Hypochromasia 1+; Platelet Estimate Consistent w Auto
--- NOTE | 2021-04-21 12:27 | Progress Note ---
Assessment and Plan Assessment Acute kidney injury, likely prerenal azotemia Hyperkalemia Anemia Diarrhea weight loss Plan: No new BMP resulted for today at present. BMP today is pending. Serum creatinine yesterday was 5.0. On 12/29/2018 serum creatinine was 1.2 On Sodium Bicarbonate 150 meq with D5W @ 125 ml/hr CT of Abdomen showed- No hydronephrosis. Non-obstructing punctate bilateral nephrolithiasis Obtain urine lytes, protein and eosinophils Anemia-transfuse as needed Renally dose medications Strict I&O's daily Obtain daily weights Continue to monitor renal function closely Plan of care reviewed by Dr. Corral Subjective Date of service: 04/21/21 Principal diagnosis: ARF Interval history: Patient seen lying in bed. C/O of headache. Advised to notify nurse to see if Tylenol can be given. Objective - Vital Signs Vital signs: Vital Signs - 12hr 04/21/21 04/21/21 01:20 06:06 Temperature 98.5 F Pulse Rate 87 Respiratory 18 Rate Blood Pressure 117/85 O2 Sat by Pulse 99 99 Oximetry - General Appearance General appearance: well-developed, appears stated age EENT: ATNC, PERRL, hearing intact, vision intact Neck: no JVD, supple Respiratory: Present: Decreased Breath Sounds Cardiology: S1S2 Gastrointestinal: normoactive bowel sounds Integumentary: warm and dry Neurologic: alert and oriented x3 Musculoskeletal: other (No edema) Psychiatric: cooperative - Lab 04/21/21 05:31 04/20/21 15:41 Most recent lab results Calcium 8.8 mg/dL (8.4-10.2) 04/20/21 15:41 Phosphorus 4.20 mg/dL (2.5-4.5) 04/20/21 Unknown Magnesium 1.90 mg/dL (1.7-2.3) 04/20/21 Unknown Medications & Allergies - Medications Allergies/Adverse Reactions: Allergies No Known Allergies Allergy (Verified 04/20/21 08:43) Home Medications: Home Medications Medication Instructions Recorded Confirmed Last Taken Type Multivit-Min/Folic/Vit K/Lycop 1 tab PO QDAY 04/21/21 04/21/21 3 Days Ago History [Men's Multivitamin Tablet] ~04/18/21 Active Medications: Generic Name Dose Route Start Last Admin Trade Name Freq PRN Reason Stop Dose Admin Acetaminophen 650 mg 04/20/21 15:00 Acetaminophen 325 Mg Tab PO Q4H PRN Pain MILD(1-3)/Fever >100.5/LANGLEY Heparin Sodium (Porcine) 5,000 unit 04/21/21 09:00 04/21/21 09:30 Heparin 5,000 Unit/1 Ml Vial SUB-Q 5,000 unit Q8H SANTOS Administration Sodium Bicarbonate 150 meq/ 1,150 mls @ 125 mls/hr 04/20/21 14:00 04/21/21 05:47 Dextrose IV 125 mls/hr DIRECT SANTOS Administration Ondansetron HCl 4 mg 04/20/21 15:00 Ondansetron 4 Mg/2 Ml Inj IV Q8H PRN Nausea And Vomiting Oxycodone/Acetaminophen 1 tab 04/20/21 15:00 Oxycodone /Acetaminophen 5-325mg Tab PO Q6H PRN Pain, Moderate (4-6) Sodium Chloride 10 ml 04/20/21 22:00 04/21/21 09:30 Sodium Chloride 0.9% 10 Ml Flush Syringe IV 10 ml BID SANTOS Administration Sodium Chloride 10 ml 04/20/21 15:00 Sodium Chloride 0.9% 10 Ml Flush Syringe IV PRN PRN LINE FLUSH Sodium Chloride 10 ml 04/20/21 15:00 Sodium Chloride 0.9% 50 Ml Ivpb IV PRN PRN FLUSH
[2021-04-21 13:37] LABS: Calcium 8.8 mg/dL (8.4-10.2)
[2021-04-21 13:38] LABS: Calcium 8.7 mg/dL (8.4-10.2)
[2021-04-21 13:43] LABS: % Iron Saturation 10.79 %
[2021-04-21] MEDS ORDERED: SODIUM FERRIC GLUCON/SUCRO 125 MG in SODIUM CHLORIDE 0.9% 100 ML IV ONE (19:30)
--- NOTE | 2021-04-21 19:32 | Progress Note ---
Assessment and Plan Assessment and plan: #Acute gastroenteritis Etiology is currently unclear; however, might be secondary to uremia Pending stool cultures and C. difficile PCR Ordering HIV to rule out possible immunocompromise state Continue with Zofran and IV fluids #BILLIE versus CKD Creatinine 5.0 (baseline unknown) Pending renal studies: Urine electrolytes, urinalysis, urine protein, intact PTH, calcium Nephrology consulted; appreciate recs Renally dose medications and avoid nephrotoxic meds Continue to monitor #Hyperkalemia Potassium 5.1 Status post medical management of hyperkalemia in the ED. Likely secondary to renal failure Continue to monitor #Elevated blood pressure Patient denies having history of hypertension; however, patient also admits to last seeing a physician approximately 19 years ago We will initiate antihypertensives if blood pressure continues to remain chronically elevated Continue to monitor #Dehydration Currently treating with IV fluids Continue to monitor #Iron deficiency anemia Hemoglobin 6.5 (unknown baseline) Denies melena or hematochezia or hematemesis Likely secondary to chronic renal disease (anemia chronic disease) Iron studies revealing: Iron 15, TIBC 139, transferrin 121 Ordering IV iron repletion x2 days Continue to monitor #Advanced care planning -Disease education conducted, care plan discussed, diagnoses discussed, prognosis discussed, and patient acknowledges understanding with care plan -Time: +30 min Disposition Plan: Continue medical management Total Time Spent with Patient (Minutes): 45 minutes History Interval history: No acute overnight. Hospitalist Physical - Constitutional Vitals: Temp Pulse Resp BP Pulse Ox 99.2 F 89 24 143/89 97 04/21/21 15:33 04/21/21 15:33 04/21/21 15:33 04/21/21 15:33 04/21/21 15:33 General appearance: Present: no acute distress, well-nourished - EENT Eyes: Present: PERRL, EOM intact ENT: hearing intact, clear oral mucosa, dentition normal - Neck Neck: Present: supple, normal ROM - Respiratory Respiratory effort: normal Respiratory: bilateral: CTA - Cardiovascular Rhythm: regular Heart Sounds: Present: S1 & S2 - Extremities Extremities: no ischemia, pulses intact, pulses symmetrical, No edema, normal temperature, normal color, Full ROM Peripheral Pulses: within normal limits - Abdominal General gastrointestinal: soft, non-tender, non-distended, normal bowel sounds - Integumentary Integumentary: Present: clear, warm, dry - Psychiatric Psychiatric: appropriate mood/affect, intact judgment & insight, memory intact, cooperative - Neurologic Neurologic: CNII-XII intact, moves all extremities - Allied Health Allied health notes reviewed: nursing HEART Score - HEART Score Troponin: Troponin T < 0.010 ng/mL (0.00-0.029) 04/20/21 10:46 Results - Labs CBC & Chem 7: 04/21/21 05:31 04/21/21 12:35 Labs: Laboratory Last Values WBC 5.2 K/mm3 (4.5-11.0) 04/21/21 05:31 RBC 2.06 M/mm3 (3.65-5.03) L 04/21/21 05:31 Hgb 6.5 gm/dl (11.8-15.2) L 04/21/21 05:31 Hct 19.4 % (35.5-45.6) L* 04/21/21 05:31 MCV 94 fl (84-94) 04/21/21 05:31 MCH 32 pg (28-32) 04/21/21 05:31 MCHC 34 % (32-34) 04/21/21 05:31 RDW 12.7 % (13.2-15.2) L 04/21/21 05:31 Plt Count 226 K/mm3 (140-440) 04/21/21 05:31 Add Manual Diff Complete 04/21/21 05:31 Total Counted 100 04/21/21 05:31 Seg Neuts % (Manual) 87.0 % (40.0-70.0) H 04/21/21 05:31 Band Neutrophils % 0 % 04/21/21 05:31 Lymphocytes % (Manual) 8.0 % (13.4-35.0) L 04/21/21 05:31 Reactive Lymphs % (Man) 1.0 % 04/21/21 05:31 Monocytes % (Manual) 4.0 % (0.0-7.3) 04/21/21 05:31 Eosinophils % (Manual) 0 % (0.0-4.3) 04/21/21 05:31 Basophils % (Manual) 0 % (0.0-1.8) 04/21/21 05:31 Metamyelocytes % 0 % 04/21/21 05:31 Myelocytes % 0 % 04/21/21 05:31 Promyelocytes % 0 % 04/21/21 05:31 Blast Cells % 0 % 04/21/21 05:31 Nucleated RBC % Not Reportable 04/21/21 05:31 Seg Neutrophils # Man 4.5 K/mm3 (1.8-7.7) 04/21/21 05:31 Band Neutrophils # 0.0 K/mm3 04/21/21 05:31 Lymphocytes # (Manual) 0.4 K/mm3 (1.2-5.4) L 04/21/21 05:31 Abs React Lymphs (Man) 0.1 K/mm3 04/21/21 05:31 Monocytes # (Manual) 0.2 K/mm3 (0.0-0.8) 04/21/21 05:31 Eosinophils # (Manual) 0.0 K/mm3 (0.0-0.4) 04/21/21 05:31 Basophils # (Manual) 0.0 K/mm3 (0.0-0.1) 04/21/21 05:31 Metamyelocytes # 0.0 K/mm3 04/21/21 05:31 Myelocytes # 0.0 K/mm3 04/21/21 05:31 Promyelocytes # 0.0 K/mm3 04/21/21 05:31 Blast Cells # 0.0 K/mm3 04/21/21 05:31 WBC Morphology Not Reportable 04/21/21 05:31 Hypersegmented Neuts Not Reportable 04/21/21 05:31 Hyposegmented Neuts Not Reportable 04/21/21 05:31 Hypogranular Neuts Not Reportable 04/21/21 05:31 Smudge Cells Not Reportable 04/21/21 05:31 Toxic Granulation Not Reportable 04/21/21 05:31 Toxic Vacuolation Not Reportable 04/21/21 05:31 Dohle Bodies Not Reportable 04/21/21 05:31 Pelger-Huet Anomaly Not Reportable 04/21/21 05:31 Karishma Rods Not Reportable 04/21/21 05:31 Platelet Estimate Consistent w auto 04/21/21 05:31 Clumped Platelets Not Reportable 04/21/21 05:31 Plt Clumps, EDTA Not Reportable 04/21/21 05:31 Large Platelets Not Reportable 04/21/21 05:31 Giant Platelets Not Reportable 04/21/21 05:31 Platelet Satelliting Not Reportable 04/21/21 05:31 Plt Morphology Comment Not Reportable 04/21/21 05:31 RBC Morphology Not Reportable 04/21/21 05:31 Dimorphic RBCs Not Reportable 04/21/21 05:31 Polychromasia Not Reportable 04/21/21 05:31 Hypochromasia 1+ 04/21/21 05:31 Poikilocytosis Not Reportable 04/21/21 05:31 Anisocytosis Not Reportable 04/21/21 05:31 Microcytosis Not Reportable 04/21/21 05:31 Macrocytosis Not Reportable 04/21/21 05:31 Spherocytes Not Reportable 04/21/21 05:31 Pappenheimer Bodies Not Reportable 04/21/21 05:31 Sickle Cells Not Reportable 04/21/21 05:31 Target Cells Not Reportable 04/21/21 05:31 Tear Drop Cells Not Reportable 04/21/21 05:31 Ovalocytes Not Reportable 04/21/21 05:31 Helmet Cells Not Reportable 04/21/21 05:31 Bragg-Lutsen Bodies Not Reportable 04/21/21 05:31 [place] Rings Not Reportable 04/21/21 05:31 Bernarda Cells Not Reportable 04/21/21 05:31 Bite Cells Not Reportable 04/21/21 05:31 Crenated Cell Not Reportable 04/21/21 05:31 Elliptocytes Not Reportable 04/21/21 05:31 Acanthocytes (Spur) Not Reportable 04/21/21 05:31 Rouleaux Not Reportable 04/21/21 05:31 Hemoglobin C Crystals Not Reportable 04/21/21 05:31 Schistocytes Not Reportable 04/21/21 05:31 Malaria parasites Not Reportable 04/21/21 05:31 Angus Bodies Not Reportable 04/21/21 05:31 Hem Pathologist Commnt No 04/21/21 05:31 Sodium 137 mmol/L (137-145) 04/21/21 12:35 Potassium 5.1 mmol/L (3.6-5.0) H 04/21/21 12:35 Chloride 99.7 mmol/L (98-107) 04/21/21 12:35 Carbon Dioxide 25 mmol/L (22-30) D 04/21/21 12:35 Anion Gap 17 mmol/L 04/21/21 12:35 BUN 53 mg/dL (9-20) H 04/21/21 12:35 Creatinine 5.0 mg/dL (0.8-1.3) H 04/21/21 12:35 Estimated GFR 16 ml/min 04/21/21 12:35 BUN/Creatinine Ratio 11 % 04/21/21 12:35 Glucose 96 mg/dL (75-100) 04/21/21 12:35 POC Glucose 112 mg/dL (70-105) H 04/20/21 18:30 Calcium 8.7 mg/dL (8.4-10.2) 04/21/21 12:35 Calcium 8.8 mg/dL (8.4-10.2) 04/21/21 12:35 Phosphorus 4.20 mg/dL (2.5-4.5) 04/20/21 Unknown Magnesium 1.80 mg/dL (1.7-2.3) 04/21/21 12:35 Iron 15 ug/dL (49-181) L 04/21/21 12:35 TIBC 139 mcg/dL (250-450) L 04/21/21 12:35 % Saturation 10.79 % 04/21/21 12:35 Transferrin 121 mg/dl (180-329) L 04/21/21 12:35 Total Bilirubin < 0.20 mg/dL (0.1-1.2) 04/20/21 08:57 AST 30 units/L (5-40) 04/20/21 08:57 ALT 16 units/L (7-56) 04/20/21 08:57 Alkaline Phosphatase 61 units/L (35-129) 04/20/21 08:57 Troponin T < 0.010 ng/mL (0.00-0.029) 04/20/21 10:46 Total Protein 7.7 g/dL (6.3-8.2) 04/20/21 08:57 Albumin 3.0 g/dL (3.9-5) L 04/20/21 08:57 Albumin/Globulin Ratio 0.6 % 04/20/21 08:57 Lipase 36 units/L (13-60) 04/20/21 08:57 Vitamin B12 1198 pg/mL (211-911) H 04/21/21 12:35 TSH 3.120 mlU/mL (0.270-4.200) 04/20/21 10:46 PTH Intact 37.23 pg/mL (15-65) 04/21/21 12:35 Krishnan/IV: Voiding Method Toilet Active Medications - Current Medications Current Medications: Generic Name Dose Route Start Last Admin Trade Name Freq PRN Reason Stop Dose Admin Acetaminophen 650 mg 04/20/21 15:00 Acetaminophen 325 Mg Tab PO Q4H PRN Pain MILD(1-3)/Fever >100.5/[place] Heparin Sodium (Porcine) 5,000 unit 04/21/21 09:00 04/21/21 17:55 Heparin 5,000 Unit/1 Ml Vial SUB-Q 5,000 unit Q8H SANTOS Administration Sodium Bicarbonate 150 meq/ 1,150 mls @ 125 mls/hr 04/20/21 14:00 04/21/21 17:54 Dextrose IV 125 mls/hr DIRECT SANTOS Administration Ferric Sodium Gluconate 110 mls @ 100 mls/hr 04/21/21 19:30 Complex 125 mg/ Sodium IV 04/21/21 20:35 Chloride ONCE ONE Ondansetron HCl 4 mg 04/20/21 15:00 Ondansetron 4 Mg/2 Ml Inj IV Q8H PRN Nausea And Vomiting Oxycodone/Acetaminophen 1 tab 04/20/21 15:00 Oxycodone /Acetaminophen 5-325mg Tab PO Q6H PRN Pain, Moderate (4-6) Sodium Chloride 10 ml 04/20/21 22:00 04/21/21 09:30 Sodium Chloride 0.9% 10 Ml Flush Syringe IV 10 ml BID SANTOS Administration Sodium Chloride 10 ml 04/20/21 15:00 Sodium Chloride 0.9% 10 Ml Flush Syringe IV PRN PRN LINE FLUSH Sodium Chloride 10 ml 04/20/21 15:00 Sodium Chloride 0.9% 50 Ml Ivpb IV PRN PRN FLUSH Nutrition/Malnutrition Assess - Dietary Evaluation Nutrition/Malnutrition Findings: Nutrition Notes Start: 04/21/21 14:23 Freq: Status: Active Protocol: Document 04/21/21 14:23 DALY (Rec: 04/21/21 14:41 DALY [id number]) Nutrition Notes Need for Assessment generated from: senior credit officer,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 Current Diet Renal Diet (since D 04/20). Labs/Tests 04/21: K 5.1, BUN 53, Crea 5.0 . Pertinent Medications 04/21: nutritionally unremarkable. Height 6 ft 2 in Weight 62.959 kg [place] Body Weight (kg) 86.36 BMI 17.8 Intake Prior to Admission Poor Weight change and time frame Pt states having loss more than 34 lbs [employer] [employer]. Weight Status Underweight Subjective/Other Information RD consult for Low BMI assessment and risk of malnutrition. No reports available on Pt's PO intake of measls at the time. Pt shows no signs of concer for risk of malnutrition at the time according to Physical Assessment history notes. Anemia diagnosis is being trated with blood transfusion and body weight will be monitored daily. Pt's Low BMI seems to correspond to a natural body composition, and not related to a chronic malnutrition, since it was not mentioned in the Physical Assessment History or the Progress notes. Percent of energy/protein needs met: Prescribed Renal Diet provides for energy/protein needs (2, 072 Kcal/77 g) during LOS. Burn Absent Trauma Absent GI Symptoms Nausea,Vomiting,Diarrhea Food Allergy No Skin Integrity/Comment Clear, warm, dry. Minimum of two criteria No Nutrition Intervention Follow-Up By: 04/28/21 Additional Comments Continue monitoring food tolerance, %PO intake of meals , and BM.
[2021-04-21 20:00] LABS: Calcium, Urine < 0.8 mg/dL (6.8-21.3)
[2021-04-21] MEDS ORDERED: SODIUM FERRIC GLUCON/SUCRO 125 MG in SODIUM CHLORIDE 0.9% 100 ML IV SCH (20:00)
[2021-04-21 20:01] LABS: Creatinine,Urine 67.1 mg/dL (0.1-20.0); Protein/Creatinine Ratio,Urine 2.77
[2021-04-21 20:10] LABS: Osmolality,Urine 317 Mosm/kg
[2021-04-22] MEDS: HEPARIN 5,000 UNIT/1 ML VIAL SUB-Q SCH ×3 (02:00→19:00)
[2021-04-22] MEDS: SODIUM BICARBONATE 150 MEQ in DEXTROSE 5% IN WATER 1,000 ML IV SCH (03:51)
[2021-04-22 06:26] LABS: Hematocrit 20.3 % (35.5-45.6); Hemoglobin 6.6 gm/dl (11.8-15.2); Mean Corpuscular HGB Conc 32 % (32-34); Mean Corpuscular Volume 93 fl (84-94); Platelet Count 247 K/mm3 (140-440); Red Blood Count 2.18 M/mm3 (3.65-5.03); Red Cell Distribution Width 12.9 % (13.2-15.2)
[2021-04-22] MEDS ORDERED: SODIUM CHLORIDE 0.9% 500 ML 500 ML IV SCH (08:00)
[2021-04-22 08:33] LABS: Basophils % (Manual) 0 % (0.0-1.8); Platelet Estimate Consistent w Auto; RBC Morphology Normal; Total Cells Counted 100
[2021-04-22] MEDS ORDERED: LACTATED RINGERS 1,000 ML IV ONE ×4 (12:04→21:08)
--- NOTE | 2021-04-22 12:35 | Progress Note ---
Assessment and Plan Acute kidney injury, likely prerenal azotemia Hyperkalemia Anemia Diarrhea weight loss Plan: Cr and BUN are trending down slowly will chec 24 hours urine Cr clearance will check LDH and periperal smear On 12/29/2018 serum creatinine was 1.2 will d/c sodium bicarb gtt and start NS 100 cc/h CT of Abdomen showed- No hydronephrosis. Non-obstructing punctate bilateral nephrolithiasis Anemia-transfuse as needed Renally dose medications Strict I&O's daily Obtain daily weights Continue to monitor renal function closely Subjective Date of service: 04/22/21 Principal diagnosis: ARF Interval history: tolerating transfusion Objective - Vital Signs Vital signs: Vital Signs - 12hr 04/22/21 04/22/21 04:00 07:38 Temperature 99.8 F H 99.8 F H Pulse Rate 89 89 Respiratory 15 18 Rate Blood Pressure 126/88 135/89 O2 Sat by Pulse 94 98 Oximetry - General Appearance General appearance: well-developed, well-nourished EENT: ATNC, PERRL Neck: no JVD Respiratory: Present: Clear to Ascultation. Absent: Rales, Ronchi Cardiology: regular, S1S2 Gastrointestinal: normoactive bowel sounds, no tenderness, no distended, no masses Integumentary: no rash, warm and dry Neurologic: no focal deficit, no asterixis - Lab 04/22/21 05:40 04/22/21 05:40 Most recent lab results Calcium 8.0 mg/dL (8.4-10.2) L 04/22/21 05:40 Phosphorus 3.70 mg/dL (2.5-4.5) 04/22/21 05:40 Magnesium 1.80 mg/dL (1.7-2.3) 04/21/21 12:35 Urine Creatinine 67.1 mg/dL (0.1-20.0) H 04/21/21 18:45 Urine Sodium 10 mmol/L 04/21/21 18:45 Urine Total Protein 186 mg/dL (5-11.8) H 04/21/21 18:45 Medications & Allergies - Medications Allergies/Adverse Reactions: Allergies No Known Allergies Allergy (Verified 04/20/21 08:43) Home Medications: Home Medications Medication Instructions Recorded Confirmed Last Taken Type Multivit-Min/Folic/Vit K/Lycop 1 tab PO QDAY 04/21/21 04/21/21 3 Days Ago History [Men's Multivitamin Tablet] ~04/18/21 Active Medications: Generic Name Dose Route Start Last Admin Trade Name Honorio PRN Reason Stop Dose Admin Acetaminophen 650 mg 04/20/21 15:00 Acetaminophen 325 Mg Tab PO Q4H PRN Pain MILD(1-3)/Fever >100.5/[place] Heparin Sodium (Porcine) 5,000 unit 04/21/21 09:00 04/22/21 10:09 Heparin 5,000 Unit/1 Ml Vial SUB-Q 5,000 unit Q8H SANTOS Administration Sodium Bicarbonate 150 meq/ 1,150 mls @ 125 mls/hr 04/20/21 14:00 04/22/21 03:51 Dextrose IV 125 mls/hr DIRECT SANTOS Administration Sodium Chloride 500 mls @ 0 mls/hr 04/22/21 08:00 Nacl 0.9% 500 Ml IV 04/22/21 19:00 ONCE@0800 SANTOS As Directed Lactated Ringer's 1,000 mls @ 999 mls/hr 04/22/21 12:04 Lactated Ringers IV 04/22/21 13:04 BOLUS ONE Lactated Ringer's 1,000 mls @ 500 mls/hr 04/22/21 15:00 Lactated Ringers IV 04/22/21 16:59 BOLUS ONE Ondansetron HCl 4 mg 04/20/21 15:00 Ondansetron 4 Mg/2 Ml Inj IV Q8H PRN Nausea And Vomiting Oxycodone/Acetaminophen 1 tab 04/20/21 15:00 04/21/21 09:05 Oxycodone /Acetaminophen 5-325mg Tab PO 1 tab Q6H PRN Administration Pain, Moderate (4-6) Sodium Chloride 10 ml 04/20/21 22:00 04/22/21 10:10 Sodium Chloride 0.9% 10 Ml Flush Syringe IV Not Given BID SANTOS Sodium Chloride 10 ml 04/20/21 15:00 Sodium Chloride 0.9% 10 Ml Flush Syringe IV PRN PRN LINE FLUSH Sodium Chloride 10 ml 04/20/21 15:00 Sodium Chloride 0.9% 50 Ml Ivpb IV PRN PRN FLUSH
--- NOTE | 2021-04-22 12:53 | Consultation ---
History of Present Illness Consult date: 04/22/21 Medications and Allergies Allergies Allergy/AdvReac Type Severity Reaction Status Date / Time No Known Allergies Allergy Verified 04/20/21 08:43 Home Medications Medication Instructions Recorded Confirmed Last Taken Type Multivit-Min/Folic/Vit K/Lycop 1 tab PO QDAY 04/21/21 04/21/21 3 Days Ago History [Men's Multivitamin Tablet] ~04/18/21 Active Meds: Active Medications Acetaminophen (Acetaminophen 325 Mg Tab) 650 mg PO Q4H PRN PRN Reason: Pain MILD(1-3)/Fever >100.5/[place] Heparin Sodium (Porcine) (Heparin 5,000 Unit/1 Ml Vial) 5,000 unit SUB-Q Q8H SANTOS Last Admin: 04/22/21 10:09 Dose: 5,000 unit Sodium Chloride (Nacl 0.9% 500 Ml) 500 mls @ 0 mls/hr IV ONCE@0800 [facility] Stop: 04/22/21 19:00 Lactated Ringer's (Lactated Ringers) 1,000 mls @ 999 mls/hr IV BOLUS ONE Stop: 04/22/21 13:04 Lactated Ringer's (Lactated Ringers) 1,000 mls @ 500 mls/hr IV BOLUS ONE Stop: 04/22/21 16:59 Sodium Chloride (Nacl 0.9% 1000 Ml) 1,000 mls @ 100 mls/hr IV DIRECT SANTOS Ondansetron HCl (Ondansetron 4 Mg/2 Ml Inj) 4 mg IV Q8H PRN PRN Reason: Nausea And Vomiting Oxycodone/Acetaminophen (Oxycodone /Acetaminophen 5-325mg Tab) 1 tab PO Q6H PRN PRN Reason: Pain, Moderate (4-6) Last Admin: 04/21/21 09:05 Dose: 1 tab Sodium Chloride (Sodium Chloride 0.9% 10 Ml Flush Syringe) 10 ml IV BID SANTOS Last Admin: 04/22/21 10:10 Dose: Not Given Sodium Chloride (Sodium Chloride 0.9% 10 Ml Flush Syringe) 10 ml IV PRN PRN PRN Reason: LINE FLUSH Sodium Chloride (Sodium Chloride 0.9% 50 Ml Ivpb) 10 ml IV PRN PRN PRN Reason: FLUSH Physical Examination - Vital Signs Vital Signs: Vital Signs Temp Pulse Resp BP Pulse Ox 99.3 F 96 H 20 162/95 100 04/20/21 08:40 04/20/21 08:40 04/20/21 08:40 04/20/21 08:40 04/20/21 08:40 Results - Laboratory Findings CBC and BMP: 04/22/21 05:40 04/22/21 05:40 Abnormal Lab Findings: Abnormal Labs 04/20/21 04/20/21 04/20/21 08:57 08:57 15:41 WBC 4.3 L RBC 2.50 L Hgb 7.8 L Hct 23.4 L RDW 12.9 L Seg Neuts % (Manual) Lymphocytes % (Manual) Monocytes % (Manual) 11.0 H Lymphocytes # (Manual) 0.9 L Sodium 135 L Potassium 5.6 H Chloride Carbon Dioxide 17 L 17 L BUN 54 H 56 H Creatinine 4.7 H 5.0 H Glucose 151 H POC Glucose Calcium Iron TIBC Transferrin Albumin 3.0 L Vitamin B12 Urine Creatinine Urine Chloride Urine Calcium Urine Total Protein Crossmatch 04/20/21 04/21/21 04/21/21 18:30 05:31 12:35 WBC RBC 2.06 L Hgb 6.5 L Hct 19.4 L* RDW 12.7 L Seg Neuts % (Manual) 87.0 H Lymphocytes % (Manual) 8.0 L Monocytes % (Manual) Lymphocytes # (Manual) 0.4 L Sodium Potassium Chloride Carbon Dioxide BUN Creatinine Glucose POC Glucose 112 H Calcium Iron 15 L TIBC 139 L Transferrin 121 L Albumin Vitamin B12 Urine Creatinine Urine Chloride Urine Calcium Urine Total Protein Crossmatch 04/21/21 04/21/21 04/21/21 12:35 12:35 18:45 WBC RBC Hgb Hct RDW Seg Neuts % (Manual) Lymphocytes % (Manual) Monocytes % (Manual) Lymphocytes # (Manual) Sodium Potassium 5.1 H Chloride Carbon Dioxide BUN 53 H Creatinine 5.0 H Glucose POC Glucose Calcium Iron TIBC Transferrin Albumin Vitamin B12 1198 H Urine Creatinine Urine Chloride 10.0 L Urine Calcium < 0.8 L Urine Total Protein Crossmatch 04/21/21 04/22/21 04/22/21 18:45 05:40 05:40 WBC RBC 2.18 L Hgb 6.6 L Hct 20.3 L RDW 12.9 L Seg Neuts % (Manual) 74.0 H Lymphocytes % (Manual) 13.0 L Monocytes % (Manual) 12.0 H Lymphocytes # (Manual) 0.8 L Sodium 135 L Potassium Chloride 97.2 L Carbon Dioxide BUN 49 H Creatinine 4.9 H Glucose POC Glucose Calcium 8.0 L Iron TIBC Transferrin Albumin Vitamin B12 Urine Creatinine 67.1 H Urine Chloride Urine Calcium Urine Total Protein 186 H Crossmatch 04/22/21 08:12 WBC RBC Hgb Hct RDW Seg Neuts % (Manual) Lymphocytes % (Manual) Monocytes % (Manual) Lymphocytes # (Manual) Sodium Potassium Chloride Carbon Dioxide BUN Creatinine Glucose POC Glucose Calcium Iron TIBC Transferrin Albumin Vitamin B12 Urine Creatinine Urine Chloride Urine Calcium Urine Total Protein Crossmatch See Detail Assessment and Plan wrong pt. cancell consult
[2021-04-22 15:00] LABS: Bilirubin,Urine NEG (Negative); Blood,Urine NEG (Negative); Color,Urine Straw (Yellow); Urobilinogen,Urine < 2.0 mg/dL (<2.0)
[2021-04-22 15:01] LABS: Protein,Urine >500 mg/dL (Negative)
[2021-04-22] MEDS: SODIUM CHLORIDE 0.9% 1000 ML 1,000 ML IV SCH (16:15)
--- NOTE | 2021-04-22 18:16 | Progress Note ---
Assessment and Plan Assessment and plan: #Acute gastroenteritisimproving Etiology is currently unclear; however, might be secondary to uremia Pending stool cultures and C. difficile PCR Ordering HIV to rule out possible immunocompromise state Continue with Zofran and IV fluids #BILLIE versus CKD Creatinine 4.9 (creatinine 1.9 in 2019) Urine osmolality 317, urine sodium 10, urine potassium 1, urine chloride 10, urine total protein 186 Aggressive IV fluid resuscitation to improve creatinine Nephrology consulted; appreciate recs Renally dose medications and avoid nephrotoxic meds Continue to monitor #Hyperkalemiaresolved Potassium 4.5 Status post medical management of hyperkalemia in the ED. Likely secondary to renal failure Continue to monitor #Elevated blood pressure Patient denies having history of hypertension; however, patient also admits to last seeing a physician approximately 19 years ago We will initiate antihypertensives if blood pressure continues to remain chronically elevated Continue to monitor #Dehydration Currently treating with IV fluids Continue to monitor #Iron deficiency anemia #Transfusion reaction Hemoglobin 6.6 (unknown baseline). Patient underwent transfusion reactions to include fever of greater than 101 during transfusion of blood. Transfusion was stopped immediately. Posttransfusion type and screen was ordered. Patient remained hemodynamically stable with no additional complaints. Patient has no history of prior transfusion reaction; however, patient has never had transfusion of blood products before. Denies melena or hematochezia or hematemesis Likely secondary to chronic renal disease (anemia chronic disease) Iron studies revealing: Iron 15, TIBC 139, transferrin 121 Status post IV iron repletion x1day. Continue to monitor #Advanced care planning -Disease education conducted, care plan discussed, diagnoses discussed, prognosis discussed, and patient acknowledges understanding with care plan -Time: +30 min Disposition Plan: Continue medical management Total Time Spent with Patient (Minutes): 45 minutes History Interval history: No acute events over night. The patient denies fevers, chills, nausea, vomiting, abdominal pain, chest pain/pressure, shortness of breath, urinary symptoms, weakness, or confusion. Hospitalist Physical - Constitutional Vitals: Temp Pulse Resp BP Pulse Ox 99.8 F H 89 18 135/89 98 04/22/21 12:39 04/22/21 12:39 04/22/21 12:39 04/22/21 12:39 04/22/21 12:39 General appearance: Present: no acute distress, well-nourished - EENT Eyes: Present: PERRL, EOM intact ENT: hearing intact, clear oral mucosa, dentition normal - Neck Neck: Present: supple, normal ROM - Respiratory Respiratory effort: normal Respiratory: bilateral: CTA - Cardiovascular Rhythm: regular Heart Sounds: Present: S1 & S2 - Extremities Extremities: no ischemia, pulses intact, pulses symmetrical, No edema, normal temperature, normal color, Full ROM Peripheral Pulses: within normal limits - Abdominal General gastrointestinal: soft, non-tender, non-distended, normal bowel sounds - Integumentary Integumentary: Present: clear, warm, dry - Psychiatric Psychiatric: appropriate mood/affect, intact judgment & insight, memory intact, cooperative - Neurologic Neurologic: CNII-XII intact, moves all extremities - Allied Health Allied health notes reviewed: nursing HEART Score - HEART Score Troponin: Troponin T < 0.010 ng/mL (0.00-0.029) 04/20/21 10:46 Results - Labs CBC & Chem 7: 04/22/21 05:40 04/22/21 05:40 Labs: Laboratory Last Values WBC 6.3 K/mm3 (4.5-11.0) 04/22/21 05:40 RBC 2.18 M/mm3 (3.65-5.03) L 04/22/21 05:40 Hgb 6.6 gm/dl (11.8-15.2) L 04/22/21 05:40 Hct 20.3 % (35.5-45.6) L 04/22/21 05:40 MCV 93 fl (84-94) 04/22/21 05:40 MCH 30 pg (28-32) 04/22/21 05:40 MCHC 32 % (32-34) 04/22/21 05:40 RDW 12.9 % (13.2-15.2) L 04/22/21 05:40 Plt Count 247 K/mm3 (140-440) 04/22/21 05:40 Add Manual Diff Complete 04/22/21 05:40 Total Counted 100 04/22/21 05:40 Seg Neuts % (Manual) 74.0 % (40.0-70.0) H 04/22/21 05:40 Band Neutrophils % 0 % 04/22/21 05:40 Lymphocytes % (Manual) 13.0 % (13.4-35.0) L 04/22/21 05:40 Reactive Lymphs % (Man) 0 % 04/22/21 05:40 Monocytes % (Manual) 12.0 % (0.0-7.3) H 04/22/21 05:40 Eosinophils % (Manual) 1.0 % (0.0-4.3) 04/22/21 05:40 Basophils % (Manual) 0 % (0.0-1.8) 04/22/21 05:40 Metamyelocytes % 0 % 04/22/21 05:40 Myelocytes % 0 % 04/22/21 05:40 Promyelocytes % 0 % 04/22/21 05:40 Blast Cells % 0 % 04/22/21 05:40 Nucleated RBC % Not Reportable 04/22/21 05:40 Seg Neutrophils # Man 4.7 K/mm3 (1.8-7.7) 04/22/21 05:40 Band Neutrophils # 0.0 K/mm3 04/22/21 05:40 Lymphocytes # (Manual) 0.8 K/mm3 (1.2-5.4) L 04/22/21 05:40 Abs React Lymphs (Man) 0.0 K/mm3 04/22/21 05:40 Monocytes # (Manual) 0.8 K/mm3 (0.0-0.8) 04/22/21 05:40 Eosinophils # (Manual) 0.1 K/mm3 (0.0-0.4) 04/22/21 05:40 Basophils # (Manual) 0.0 K/mm3 (0.0-0.1) 04/22/21 05:40 Metamyelocytes # 0.0 K/mm3 04/22/21 05:40 Myelocytes # 0.0 K/mm3 04/22/21 05:40 Promyelocytes # 0.0 K/mm3 04/22/21 05:40 Blast Cells # 0.0 K/mm3 04/22/21 05:40 WBC Morphology Not Reportable 04/22/21 05:40 Hypersegmented Neuts Not Reportable 04/22/21 05:40 Hyposegmented Neuts Not Reportable 04/22/21 05:40 Hypogranular Neuts Not Reportable 04/22/21 05:40 Smudge Cells Not Reportable 04/22/21 05:40 Toxic Granulation Not Reportable 04/22/21 05:40 Toxic Vacuolation Not Reportable 04/22/21 05:40 Dohle Bodies Not Reportable 04/22/21 05:40 Pelger-Huet Anomaly Not Reportable 04/22/21 05:40 Karishma Rods Not Reportable 04/22/21 05:40 Platelet Estimate Consistent w auto 04/22/21 05:40 Clumped Platelets Not Reportable 04/22/21 05:40 Plt Clumps, EDTA Not Reportable 04/22/21 05:40 Large Platelets Not Reportable 04/22/21 05:40 Giant Platelets Not Reportable 04/22/21 05:40 Platelet Satelliting Not Reportable 04/22/21 05:40 Plt Morphology Comment Not Reportable 04/22/21 05:40 RBC Morphology Normal 04/22/21 05:40 Dimorphic RBCs Not Reportable 04/22/21 05:40 Polychromasia Not Reportable 04/22/21 05:40 Hypochromasia Not Reportable 04/22/21 05:40 Poikilocytosis Not Reportable 04/22/21 05:40 Anisocytosis Not Reportable 04/22/21 05:40 Microcytosis Not Reportable 04/22/21 05:40 Macrocytosis Not Reportable 04/22/21 05:40 Spherocytes Not Reportable 04/22/21 05:40 Pappenheimer Bodies Not Reportable 04/22/21 05:40 Sickle Cells Not Reportable 04/22/21 05:40 Target Cells Not Reportable 04/22/21 05:40 Tear Drop Cells Not Reportable 04/22/21 05:40 Ovalocytes Not Reportable 04/22/21 05:40 Helmet Cells Not Reportable 04/22/21 05:40 Bragg-Oark Bodies Not Reportable 04/22/21 05:40 Beggs Rings Not Reportable 04/22/21 05:40 Bernarda Cells Not Reportable 04/22/21 05:40 Bite Cells Not Reportable 04/22/21 05:40 Crenated Cell Not Reportable 04/22/21 05:40 Elliptocytes Not Reportable 04/22/21 05:40 Acanthocytes (Spur) Not Reportable 04/22/21 05:40 Rouleaux Not Reportable 04/22/21 05:40 Hemoglobin C Crystals Not Reportable 04/22/21 05:40 Schistocytes Not Reportable 04/22/21 05:40 Malaria parasites Not Reportable 04/22/21 05:40 Angus Bodies Not Reportable 04/22/21 05:40 Hem Pathologist Commnt No 04/22/21 05:40 Sodium 135 mmol/L (137-145) L 04/22/21 05:40 Potassium 4.5 mmol/L (3.6-5.0) 04/22/21 05:40 Chloride 97.2 mmol/L (98-107) L 04/22/21 05:40 Carbon Dioxide 28 mmol/L (22-30) 04/22/21 05:40 Anion Gap 14 mmol/L 04/22/21 05:40 BUN 49 mg/dL (9-20) H 04/22/21 05:40 Creatinine 4.9 mg/dL (0.8-1.3) H 04/22/21 05:40 Estimated GFR 16 ml/min 04/22/21 05:40 BUN/Creatinine Ratio 10 % 04/22/21 05:40 Glucose 93 mg/dL (75-100) 04/22/21 05:40 POC Glucose 112 mg/dL (70-105) H 04/20/21 18:30 Calcium 8.0 mg/dL (8.4-10.2) L 04/22/21 05:40 Phosphorus 3.70 mg/dL (2.5-4.5) 04/22/21 05:40 Magnesium 1.80 mg/dL (1.7-2.3) 04/21/21 12:35 Iron 15 ug/dL (49-181) L 04/21/21 12:35 TIBC 139 mcg/dL (250-450) L 04/21/21 12:35 % Saturation 10.79 % 04/21/21 12:35 Transferrin 121 mg/dl (180-329) L 04/21/21 12:35 Total Bilirubin < 0.20 mg/dL (0.1-1.2) 04/20/21 08:57 AST 30 units/L (5-40) 04/20/21 08:57 ALT 16 units/L (7-56) 04/20/21 08:57 Alkaline Phosphatase 61 units/L (35-129) 04/20/21 08:57 Lactate Dehydrogenase 544 units/L (91-180) H 04/22/21 Unknown Total Creatine Kinase 42 units/L (55-170) L 04/22/21 Unknown Troponin T < 0.010 ng/mL (0.00-0.029) 04/20/21 10:46 Total Protein 7.7 g/dL (6.3-8.2) 04/20/21 08:57 Albumin 3.0 g/dL (3.9-5) L 04/20/21 08:57 Albumin/Globulin Ratio 0.6 % 04/20/21 08:57 Lipase 36 units/L (13-60) 04/20/21 08:57 Vitamin B12 1198 pg/mL (211-911) H 04/21/21 12:35 TSH 3.120 mlU/mL (0.270-4.200) 04/20/21 10:46 PTH Intact 37.23 pg/mL (15-65) 04/21/21 12:35 Urine Color Straw (Yellow) 04/22/21 14:51 Urine Turbidity Clear (Clear) 04/22/21 14:51 Urine pH 9.0 (5.0-7.0) H 04/22/21 14:51 Ur Specific [employer] 1.007 (1.003-1.030) 04/22/21 14:51 Urine Protein >500 mg/dL (Negative) 04/22/21 14:51 Urine Glucose (UA) Neg mg/dL (Negative) 04/22/21 14:51 Urine Ketones Neg mg/dL (Negative) 04/22/21 14:51 Urine Blood Neg (Negative) 04/22/21 14:51 Urine Nitrite Neg (Negative) 04/22/21 14:51 Urine Bilirubin Neg (Negative) 04/22/21 14:51 Urine Urobilinogen < 2.0 mg/dL (<2.0) 04/22/21 14:51 Ur Leukocyte Esterase Neg (Negative) 04/22/21 14:51 Urine WBC (Auto) 1.0 /HPF (0.0-6.0) 04/22/21 14:51 Urine RBC (Auto) 1.0 /HPF (0.0-6.0) 04/22/21 14:51 Urine Eosinophils None seen (None Seen) 04/21/21 18:45 Urine Osmolality 317 Mosm/kg 04/21/21 18:45 Urine Creatinine 67.1 mg/dL (0.1-20.0) H 04/21/21 18:45 Protein/Creatinin Ratio 2.77 04/21/21 18:45 Urine Sodium 10 mmol/L 04/21/21 18:45 Urine Potassium 1.00 mmol/L 04/21/21 18:45 Urine Chloride 10.0 mmolL (110-250) L 04/21/21 18:45 Urine Calcium < 0.8 mg/dL (6.8-21.3) L 04/21/21 18:45 Urine Total Protein 186 mg/dL (5-11.8) H 04/21/21 18:45 Blood Type O POSITIVE 04/22/21 08:12 Antibody Screen Negative 04/22/21 08:12 Crossmatch See Detail 04/22/21 08:12 Krishnan/IV: Voiding Method Urinal Active Medications - Current Medications Current Medications: Generic Name Dose Route Start Last Admin Trade Name Freq PRN Reason Stop Dose Admin Acetaminophen 650 mg 04/20/21 15:00 Acetaminophen 325 Mg Tab PO Q4H PRN Pain MILD(1-3)/Fever >100.5/LANGLEY Heparin Sodium (Porcine) 5,000 unit 04/21/21 09:00 04/22/21 10:09 Heparin 5,000 Unit/1 Ml Vial SUB-Q 5,000 unit Q8H SANTOS Administration Sodium Chloride 500 mls @ 0 mls/hr 04/22/21 08:00 04/22/21 14:50 Nacl 0.9% 500 Ml IV 04/22/21 19:00 Not Given ONCE@0800 SANTOS As Directed Sodium Chloride 1,000 mls @ 100 mls/hr 04/22/21 12:45 Nacl 0.9% 1000 Ml IV DIRECT SANTOS Lactated Ringer's 1,000 mls @ 500 mls/hr 04/22/21 18:06 Lactated Ringers IV 04/22/21 20:05 BOLUS ONE Ondansetron HCl 4 mg 04/20/21 15:00 Ondansetron 4 Mg/2 Ml Inj IV Q8H PRN Nausea And Vomiting Oxycodone/Acetaminophen 1 tab 04/20/21 15:00 04/21/21 09:05 Oxycodone /Acetaminophen 5-325mg Tab PO 1 tab Q6H PRN Administration Pain, Moderate (4-6) Sodium Chloride 10 ml 04/20/21 22:00 04/22/21 10:10 Sodium Chloride 0.9% 10 Ml Flush Syringe IV Not Given BID SANTOS Sodium Chloride 10 ml 04/20/21 15:00 Sodium Chloride 0.9% 10 Ml Flush Syringe IV PRN PRN LINE FLUSH Sodium Chloride 10 ml 04/20/21 15:00 Sodium Chloride 0.9% 50 Ml Ivpb IV PRN PRN FLUSH Nutrition/Malnutrition Assess - Dietary Evaluation Nutrition/Malnutrition Findings: Nutrition Notes Start: 04/21/21 14:23 Freq: Status: Active Protocol: Document 04/21/21 14:23 DALY (Rec: 04/21/21 14:41 DALY [id number]) Nutrition Notes 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 Current Diet Renal Diet (since D 04/20). Labs/Tests 04/21: K 5.1, BUN 53, Crea 5.0 . Pertinent Medications 04/21: nutritionally unremarkable. 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 No reports available on Pt's PO intake of measls at the time. Pt shows no signs of concer for risk of malnutrition at the time according to Physical Assessment history notes. Anemia diagnosis is being trated with blood transfusion and body weight will be monitored daily. Pt's Low BMI seems to correspond to a natural body composition, and not related to a chronic malnutrition, since it was not mentioned in the Physical Assessment History or the Progress notes. Percent of energy/protein needs met: Prescribed Renal Diet provides for energy/protein needs (2, 072 Kcal/77 g) during LOS. Burn Absent Trauma Absent GI Symptoms Nausea,Vomiting,Diarrhea Food Allergy No Skin Integrity/Comment Clear, warm, dry. Minimum of two criteria No Nutrition Intervention Follow-Up By: 04/28/21 Additional Comments Continue monitoring food tolerance, %PO intake of meals , and BM.
[2021-04-22] MEDS: ACETAMINOPHEN 325 MG TAB PO PRN (21:14)
[2021-04-23] MEDS: HEPARIN 5,000 UNIT/1 ML VIAL SUB-Q SCH ×2 (00:26→12:57)
[2021-04-23] MEDS: SODIUM CHLORIDE 0.9% 1000 ML 1,000 ML IV SCH (01:18)
[2021-04-23 06:30] LABS: Calcium 8.2 mg/dL (8.4-10.2)
--- NOTE | 2021-04-23 09:26 | Progress Note ---
Assessment and Plan Acute kidney injury, likely prerenal azotemia Hyperkalemia Anemia Diarrhea weight loss Plan: kidney funciton is stable, Cr remains higher than baseline excellent UOP will check 24 hours urine Cr clearance-pending will check LDH and peripheral smear-negative for schystocytes On 12/29/2018 serum creatinine was 1.2 rosalio NS 100 cc/h CT of Abdomen showed- No hydronephrosis. Non-obstructing punctate bilateral nephrolithiasis Anemia-transfuse as needed Renally dose medications Strict I&O's daily Obtain daily weights Continue to monitor renal function closely Subjective Date of service: 04/23/21 Principal diagnosis: ARF Interval history: no overnight events Objective - Vital Signs Vital signs: Vital Signs - 12hr 04/22/21 04/22/21 04/23/21 22:00 23:20 03:30 Temperature 100.2 F H 99.4 F Pulse Rate 89 87 Respiratory 18 16 16 Rate Blood Pressure 118/85 116/90 O2 Sat by Pulse 98 94 94 Oximetry - Lab 04/22/21 05:40 04/23/21 05:45 Most recent lab results Calcium 8.2 mg/dL (8.4-10.2) L 04/23/21 05:45 Phosphorus 3.00 mg/dL (2.5-4.5) 04/23/21 05:45 Magnesium 1.50 mg/dL (1.7-2.3) L 04/23/21 05:45 Urine Creatinine 67.1 mg/dL (0.1-20.0) H 04/21/21 18:45 Urine Sodium 10 mmol/L 04/21/21 18:45 Urine Total Protein 186 mg/dL (5-11.8) H 04/21/21 18:45 Medications & Allergies - Medications Allergies/Adverse Reactions: Allergies No Known Allergies Allergy (Verified 04/20/21 08:43) Home Medications: Home Medications Medication Instructions Recorded Confirmed Last Taken Type Multivit-Min/Folic/Vit K/Lycop 1 tab PO QDAY 04/21/21 04/21/21 3 Days Ago History [Men's Multivitamin Tablet] ~04/18/21 Active Medications: Generic Name Dose Route Start Last Admin Trade Name Freq PRN Reason Stop Dose Admin Acetaminophen 650 mg 04/20/21 15:00 04/22/21 21:14 Acetaminophen 325 Mg Tab PO 650 mg Q4H PRN Administration Pain MILD(1-3)/Fever >100.5/LANGLEY Heparin Sodium (Porcine) 5,000 unit 04/21/21 09:00 04/23/21 00:26 Heparin 5,000 Unit/1 Ml Vial SUB-Q Not Given Q8H SANTOS Sodium Chloride 1,000 mls @ 100 mls/hr 04/22/21 12:45 04/23/21 01:18 Nacl 0.9% 1000 Ml IV 100 mls/hr DIRECT SANTOS Administration Ondansetron HCl 4 mg 04/20/21 15:00 Ondansetron 4 Mg/2 Ml Inj IV Q8H PRN Nausea And Vomiting Oxycodone/Acetaminophen 1 tab 04/20/21 15:00 04/21/21 09:05 Oxycodone /Acetaminophen 5-325mg Tab PO 1 tab Q6H PRN Administration Pain, Moderate (4-6) Sodium Chloride 10 ml 04/20/21 22:00 04/22/21 22:00 Sodium Chloride 0.9% 10 Ml Flush Syringe IV Not Given BID SANTOS Sodium Chloride 10 ml 04/20/21 15:00 Sodium Chloride 0.9% 10 Ml Flush Syringe IV PRN PRN LINE FLUSH Sodium Chloride 10 ml 04/20/21 15:00 Sodium Chloride 0.9% 50 Ml Ivpb IV PRN PRN FLUSH
[2021-04-23] MEDS ORDERED: LACTATED RINGERS 1,000 ML IV ONE ×3 (12:30→19:00)
[2021-04-23] MEDS ORDERED: HYDROmorphone 1 MG/1 ML INJ IV PRN (15:18)
--- NOTE | 2021-04-23 16:00 | Progress Note ---
Assessment and Plan Assessment and plan: #Acute gastroenteritisimproving Etiology is currently unclear; however, might be secondary to uremia Pending stool cultures and C. difficile PCR Ordering HIV to rule out possible immunocompromise state Continue with Zofran and IV fluids #BILLIE versus CKD Creatinine 4.8 (creatinine 1.9 in 2019) Urine osmolality 317, urine sodium 10, urine potassium 1, urine chloride 10, urine total protein 186 Aggressive IV fluid resuscitation to improve creatinine Nephrology consulted; appreciate recs Renally dose medications and avoid nephrotoxic meds Continue to monitor #Hyperkalemiaresolved Potassium 4.5 Status post medical management of hyperkalemia in the ED. Likely secondary to renal failure Continue to monitor #Elevated blood pressure Patient denies having history of hypertension; however, patient also admits to last seeing a physician approximately 19 years ago We will initiate antihypertensives if blood pressure continues to remain chronically elevated Continue to monitor #Dehydration Currently treating with IV fluids Continue to monitor #Iron deficiency anemia #Transfusion reaction Hemoglobin 6.6 (unknown baseline). Patient underwent transfusion reactions to include fever of greater than 101 during transfusion of blood. Transfusion was stopped immediately. Posttransfusion type and screen was ordered. Patient remained hemodynamically stable with no additional complaints. Patient has no history of prior transfusion reaction; however, patient has never had transfusion of blood products before. Denies melena or hematochezia or hematemesis Likely secondary to chronic renal disease (anemia chronic disease) Iron studies revealing: Iron 15, TIBC 139, transferrin 121 Status post IV iron repletion x1day. Continue to monitor #Advanced care planning -Disease education conducted, care plan discussed, diagnoses discussed, prognosis discussed, and patient acknowledges understanding with care plan -Time: +30 min Disposition Plan: Continue medical management Total Time Spent with Patient (Minutes): 45 min History Interval history: No acute events overnight. Hospitalist Physical - Constitutional Vitals: Temp Pulse Resp BP Pulse Ox 99.9 F H 85 16 104/73 99 04/23/21 08:39 04/23/21 08:39 04/23/21 08:39 04/23/21 08:39 04/23/21 12:00 General appearance: Present: no acute distress, well-nourished - EENT Eyes: Present: PERRL, EOM intact ENT: hearing intact, clear oral mucosa, dentition normal - Neck Neck: Present: supple, normal ROM - Respiratory Respiratory effort: normal Respiratory: bilateral: CTA - Cardiovascular Rhythm: regular Heart Sounds: Present: S1 & S2 - Extremities Extremities: no ischemia, pulses intact, pulses symmetrical, No edema, normal temperature, normal color, Full ROM Peripheral Pulses: within normal limits - Abdominal General gastrointestinal: soft, non-tender, non-distended, normal bowel sounds - Integumentary Integumentary: Present: clear, warm, dry - Psychiatric Psychiatric: appropriate mood/affect, intact judgment & insight, memory intact, cooperative - Neurologic Neurologic: CNII-XII intact, moves all extremities - Allied Health Allied health notes reviewed: nursing HEART Score - HEART Score Troponin: Troponin T < 0.010 ng/mL (0.00-0.029) 04/20/21 10:46 Results - Labs CBC & Chem 7: 04/22/21 05:40 04/23/21 05:45 Labs: Laboratory Last Values WBC 6.3 K/mm3 (4.5-11.0) 04/22/21 05:40 RBC 2.18 M/mm3 (3.65-5.03) L 04/22/21 05:40 Hgb 6.6 gm/dl (11.8-15.2) L 04/22/21 05:40 Hct 20.3 % (35.5-45.6) L 04/22/21 05:40 MCV 93 fl (84-94) 04/22/21 05:40 MCH 30 pg (28-32) 04/22/21 05:40 MCHC 32 % (32-34) 04/22/21 05:40 RDW 12.9 % (13.2-15.2) L 04/22/21 05:40 Plt Count 247 K/mm3 (140-440) 04/22/21 05:40 Add Manual Diff Complete 04/22/21 05:40 Total Counted 100 04/22/21 05:40 Seg Neuts % (Manual) 74.0 % (40.0-70.0) H 04/22/21 05:40 Band Neutrophils % 0 % 04/22/21 05:40 Lymphocytes % (Manual) 13.0 % (13.4-35.0) L 04/22/21 05:40 Reactive Lymphs % (Man) 0 % 04/22/21 05:40 Monocytes % (Manual) 12.0 % (0.0-7.3) H 04/22/21 05:40 Eosinophils % (Manual) 1.0 % (0.0-4.3) 04/22/21 05:40 Basophils % (Manual) 0 % (0.0-1.8) 04/22/21 05:40 Metamyelocytes % 0 % 04/22/21 05:40 Myelocytes % 0 % 04/22/21 05:40 Promyelocytes % 0 % 04/22/21 05:40 Blast Cells % 0 % 04/22/21 05:40 Nucleated RBC % Not Reportable 04/22/21 05:40 Seg Neutrophils # Man 4.7 K/mm3 (1.8-7.7) 04/22/21 05:40 Band Neutrophils # 0.0 K/mm3 04/22/21 05:40 Lymphocytes # (Manual) 0.8 K/mm3 (1.2-5.4) L 04/22/21 05:40 Abs React Lymphs (Man) 0.0 K/mm3 04/22/21 05:40 Monocytes # (Manual) 0.8 K/mm3 (0.0-0.8) 04/22/21 05:40 Eosinophils # (Manual) 0.1 K/mm3 (0.0-0.4) 04/22/21 05:40 Basophils # (Manual) 0.0 K/mm3 (0.0-0.1) 04/22/21 05:40 Metamyelocytes # 0.0 K/mm3 04/22/21 05:40 Myelocytes # 0.0 K/mm3 04/22/21 05:40 Promyelocytes # 0.0 K/mm3 04/22/21 05:40 Blast Cells # 0.0 K/mm3 04/22/21 05:40 WBC Morphology Not Reportable 04/22/21 05:40 Hypersegmented Neuts Not Reportable 04/22/21 05:40 Hyposegmented Neuts Not Reportable 04/22/21 05:40 Hypogranular Neuts Not Reportable 04/22/21 05:40 Smudge Cells Not Reportable 04/22/21 05:40 Toxic Granulation Not Reportable 04/22/21 05:40 Toxic Vacuolation Not Reportable 04/22/21 05:40 Dohle Bodies Not Reportable 04/22/21 05:40 Pelger-Huet Anomaly Not Reportable 04/22/21 05:40 Karishma Rods Not Reportable 04/22/21 05:40 Platelet Estimate Consistent w auto 04/22/21 05:40 Clumped Platelets Not Reportable 04/22/21 05:40 Plt Clumps, EDTA Not Reportable 04/22/21 05:40 Large Platelets Not Reportable 04/22/21 05:40 Giant Platelets Not Reportable 04/22/21 05:40 Platelet Satelliting Not Reportable 04/22/21 05:40 Plt Morphology Comment Not Reportable 04/22/21 05:40 RBC Morphology Normal 04/22/21 05:40 Dimorphic RBCs Not Reportable 04/22/21 05:40 Polychromasia Not Reportable 04/22/21 05:40 Hypochromasia Not Reportable 04/22/21 05:40 Poikilocytosis Not Reportable 04/22/21 05:40 Anisocytosis Not Reportable 04/22/21 05:40 Microcytosis Not Reportable 04/22/21 05:40 Macrocytosis Not Reportable 04/22/21 05:40 Spherocytes Not Reportable 04/22/21 05:40 Pappenheimer Bodies Not Reportable 04/22/21 05:40 Sickle Cells Not Reportable 04/22/21 05:40 Target Cells Not Reportable 04/22/21 05:40 Tear Drop Cells Not Reportable 04/22/21 05:40 Ovalocytes Not Reportable 04/22/21 05:40 Helmet Cells Not Reportable 04/22/21 05:40 Bragg-Symonds Bodies Not Reportable 04/22/21 05:40 [place] Rings Not Reportable 04/22/21 05:40 [place] Cells Not Reportable 04/22/21 05:40 Bite Cells Not Reportable 04/22/21 05:40 Crenated Cell Not Reportable 04/22/21 05:40 Elliptocytes Not Reportable 04/22/21 05:40 Acanthocytes (Spur) Not Reportable 04/22/21 05:40 Rouleaux Not Reportable 04/22/21 05:40 Hemoglobin C Crystals Not Reportable 04/22/21 05:40 Schistocytes Not Reportable 04/22/21 05:40 Malaria parasites Not Reportable 04/22/21 05:40 Angus Bodies Not Reportable 04/22/21 05:40 Hem Pathologist Commnt No 04/22/21 05:40 Sodium 134 mmol/L (137-145) L 04/23/21 05:45 Potassium 4.7 mmol/L (3.6-5.0) 04/23/21 05:45 Chloride 100.2 mmol/L (98-107) 04/23/21 05:45 Carbon Dioxide 23 mmol/L (22-30) 04/23/21 05:45 Anion Gap 16 mmol/L 04/23/21 05:45 BUN 50 mg/dL (9-20) H 04/23/21 05:45 Creatinine 4.8 mg/dL (0.8-1.3) H 04/23/21 05:45 Estimated GFR 16 ml/min 04/23/21 05:45 BUN/Creatinine Ratio 10 % 04/23/21 05:45 Glucose 88 mg/dL (75-100) 04/23/21 05:45 POC Glucose 112 mg/dL (70-105) H 04/20/21 18:30 Calcium 8.2 mg/dL (8.4-10.2) L 04/23/21 05:45 Phosphorus 3.00 mg/dL (2.5-4.5) 04/23/21 05:45 Magnesium 1.50 mg/dL (1.7-2.3) L 04/23/21 05:45 Iron 15 ug/dL (49-181) L 04/21/21 12:35 TIBC 139 mcg/dL (250-450) L 04/21/21 12:35 % Saturation 10.79 % 04/21/21 12:35 Transferrin 121 mg/dl (180-329) L 04/21/21 12:35 Total Bilirubin < 0.20 mg/dL (0.1-1.2) 04/20/21 08:57 AST 30 units/L (5-40) 04/20/21 08:57 ALT 16 units/L (7-56) 04/20/21 08:57 Alkaline Phosphatase 61 units/L (35-129) 04/20/21 08:57 Lactate Dehydrogenase 544 units/L (91-180) H 04/22/21 Unknown Total Creatine Kinase 42 units/L (55-170) L 04/22/21 Unknown Troponin T < 0.010 ng/mL (0.00-0.029) 04/20/21 10:46 Total Protein 7.7 g/dL (6.3-8.2) 04/20/21 08:57 Albumin 3.0 g/dL (3.9-5) L 04/20/21 08:57 Albumin/Globulin Ratio 0.6 % 04/20/21 08:57 Lipase 36 units/L (13-60) 04/20/21 08:57 Vitamin B12 1198 pg/mL (211-911) H 04/21/21 12:35 TSH 3.120 mlU/mL (0.270-4.200) 04/20/21 10:46 PTH Intact 37.23 pg/mL (15-65) 04/21/21 12:35 Urine Color Straw (Yellow) 04/22/21 14:51 Urine Turbidity Clear (Clear) 04/22/21 14:51 Urine pH 9.0 (5.0-7.0) H 04/22/21 14:51 Ur Specific [place] 1.007 (1.003-1.030) 04/22/21 14:51 Urine Protein >500 mg/dL (Negative) 04/22/21 14:51 Urine Glucose (UA) Neg mg/dL (Negative) 04/22/21 14:51 Urine Ketones Neg mg/dL (Negative) 04/22/21 14:51 Urine Blood Neg (Negative) 04/22/21 14:51 Urine Nitrite Neg (Negative) 04/22/21 14:51 Urine Bilirubin Neg (Negative) 04/22/21 14:51 Urine Urobilinogen < 2.0 mg/dL (<2.0) 04/22/21 14:51 Ur Leukocyte Esterase Neg (Negative) 04/22/21 14:51 Urine WBC (Auto) 1.0 /HPF (0.0-6.0) 04/22/21 14:51 Urine RBC (Auto) 1.0 /HPF (0.0-6.0) 04/22/21 14:51 Urine Eosinophils None seen (None Seen) 04/21/21 18:45 Urine Osmolality 317 Mosm/kg 04/21/21 18:45 Urine Creatinine 67.1 mg/dL (0.1-20.0) H 04/21/21 18:45 Protein/Creatinin Ratio 2.77 04/21/21 18:45 Urine Sodium 10 mmol/L 04/21/21 18:45 Urine Potassium 1.00 mmol/L 04/21/21 18:45 Urine Chloride 10.0 mmolL (110-250) L 04/21/21 18:45 Urine Calcium < 0.8 mg/dL (6.8-21.3) L 04/21/21 18:45 Urine Total Protein 186 mg/dL (5-11.8) H 04/21/21 18:45 Schistocytes Smear None 04/22/21 Unknown Blood Type O POSITIVE 04/22/21 08:12 Antibody Screen Negative 04/22/21 08:12 Crossmatch See Detail 04/22/21 08:12 Krishnan/IV: Voiding Method Urinal Active Medications - Current Medications Current Medications: Generic Name Dose Route Start Last Admin Trade Name Freq PRN Reason Stop Dose Admin Acetaminophen 650 mg 04/20/21 15:00 04/22/21 21:14 Acetaminophen 325 Mg Tab PO 650 mg Q4H PRN Administration Pain MILD(1-3)/Fever >100.5/LANGLEY Heparin Sodium (Porcine) 5,000 unit 04/21/21 09:00 04/23/21 12:57 Heparin 5,000 Unit/1 Ml Vial SUB-Q 5,000 unit Q8H SANTOS Administration Hydromorphone HCl 1 mg 04/23/21 15:18 Hydromorphone 1 Mg/1 Ml Inj IV Q4H PRN Pain , Severe (7-10) Sodium Chloride 1,000 mls @ 100 mls/hr 04/22/21 12:45 04/23/21 01:18 Nacl 0.9% 1000 Ml IV 100 mls/hr DIRECT SANTOS Administration Lactated Ringer's 1,000 mls @ 999 mls/hr 04/23/21 15:00 Lactated Ringers IV 04/23/21 16:00 BOLUS ONE Lactated Ringer's 1,000 mls @ 175 mls/hr 04/23/21 19:00 Lactated Ringers IV 04/24/21 00:42 BOLUS ONE Lactated Ringer's 1,000 mls @ 175 mls/hr 04/24/21 00:00 Lactated Ringers IV 04/24/21 05:42 BOLUS ONE Ondansetron HCl 8 mg 04/23/21 13:00 Ondansetron 8 Mg Odt Tab PO Q8H PRN Nausea And Vomiting Oxycodone/Acetaminophen 1 tab 04/20/21 15:00 04/21/21 09:05 Oxycodone /Acetaminophen 5-325mg Tab PO 1 tab Q6H PRN Administration Pain, Moderate (4-6) Sodium Chloride 10 ml 04/20/21 22:00 04/23/21 12:57 Sodium Chloride 0.9% 10 Ml Flush Syringe IV 10 ml BID SANTOS Administration Sodium Chloride 10 ml 04/20/21 15:00 Sodium Chloride 0.9% 10 Ml Flush Syringe IV PRN PRN LINE FLUSH Sodium Chloride 10 ml 04/20/21 15:00 Sodium Chloride 0.9% 50 Ml Ivpb IV PRN PRN FLUSH Nutrition/Malnutrition Assess - Dietary Evaluation Nutrition/Malnutrition Findings: Nutrition Notes Start: 04/21/21 14:23 Freq: Status: Active Protocol: Document 04/21/21 14:23 DALY (Rec: 04/21/21 14:41 DALY [id number]) Nutrition Notes Need for Assessment generated from: clinical trials manager,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 Current Diet Renal Diet (since D 04/20). Labs/Tests 04/21: K 5.1, BUN 53, Crea 5.0 . Pertinent Medications 04/21: nutritionally unremarkable. Height 6 ft 2 in Weight 62.959 kg [place] Body Weight (kg) 86.36 BMI 17.8 Intake Prior to Admission Poor Weight change and time frame Pt states having loss more than 34 lbs [employer]. Weight Status Underweight Subjective/Other Information RD consult for Low BMI assessment and risk of malnutrition. No reports available on Pt's PO intake of measls at the time. Pt shows no signs of concer for risk of malnutrition at the time according to Physical Assessment history notes. Anemia diagnosis is being trated with blood transfusion and body weight will be monitored daily. Pt's Low BMI seems to correspond to a natural body composition, and not related to a chronic malnutrition, since it was not mentioned in the Physical Assessment History or the Progress notes. Percent of energy/protein needs met: Prescribed Renal Diet provides for energy/protein needs (2, 072 Kcal/77 g) during LOS. Burn Absent Trauma Absent GI Symptoms Nausea,Vomiting,Diarrhea Food Allergy No Skin Integrity/Comment Clear, warm, dry. Minimum of two criteria No Nutrition Intervention Follow-Up By: 04/28/21 Additional Comments Continue monitoring food tolerance, %PO intake of meals , and BM.
[2021-04-23] MEDS: ACETAMINOPHEN 325 MG TAB PO PRN (21:29)
[2021-04-24] MEDS ORDERED: LACTATED RINGERS 1,000 ML IV ONE
[2021-04-24 06:11] LABS: Creatinine 24 Hour,Urine 1.3 (0.8-2.8); Creatinine,Urine 44.3 mg/dL (0.1-20.0)
[2021-04-24 08:03] LABS: Calcium 8.2 mg/dL (8.4-10.2)
[2021-04-24] MEDS: HEPARIN 5,000 UNIT/1 ML VIAL SUB-Q SCH ×3 (09:44→22:08)
--- NOTE | 2021-04-24 09:57 | Progress Note ---
Assessment and Plan Assessment and Plan Acute kidney injury, likely prerenal azotemia Hyperkalemia Anemia Diarrhea weight loss Plan: Cr high but stable will check 24 hours urine Cr clearance Ordered LDH and periperal smear, smear -ve for shistocytes, no thrombocytopenia. On 12/29/2018 serum creatinine was 1.2 Start NS at 125 mls/hr, CXR was clear. Na dropped down, recheck BMP CT of Abdomen showed- No hydronephrosis. Non-obstructing punctate bilateral nephrolithiasis Anemia-transfuse as needed Renally dose medications Strict I&O's daily Obtain daily weights Continue to monitor renal function closely Subjective Date of service: 04/24/21 Principal diagnosis: ARF Interval history: Making urine, NAD. Objective - Exam Narrative Exam: General appearance: Present: no acute distress, well-nourished - EENT Eyes: Present: PERRL, EOM intact ENT: hearing intact, clear oral mucosa, dentition normal - Neck Neck: Present: supple, normal ROM - Respiratory Respiratory effort: normal Respiratory: bilateral: CTA - Cardiovascular Rhythm: regular Heart Sounds: Present: S1 & S2 - Extremities Extremities: no ischemia, pulses intact, pulses symmetrical, No edema, normal temperature, normal color, Full ROM Peripheral Pulses: within normal limits - Abdominal General gastrointestinal: soft, non-tender, non-distended, normal bowel sounds - Integumentary Integumentary: Present: clear, warm, dry - Psychiatric Psychiatric: appropriate mood/affect, intact judgment & insight, memory intact, cooperative - Neurologic Neurologic: CNII-XII intact, moves all extremities - Allied Health Allied health notes reviewed: nursing - Vital Signs Vital signs: Vital Signs - 12hr 04/23/21 04/24/21 23:25 03:26 Temperature 98.1 F 99.4 F Pulse Rate 75 90 Respiratory 16 16 Rate Blood Pressure 121/83 155/90 O2 Sat by Pulse 90 89 Oximetry - Lab 04/22/21 05:40 04/24/21 07:19 Most recent lab results Calcium 8.2 mg/dL (8.4-10.2) L 04/24/21 07:19 Phosphorus 3.40 mg/dL (2.5-4.5) 04/24/21 07:19 Magnesium 1.50 mg/dL (1.7-2.3) L 04/23/21 05:45 Urine Creatinine 44.3 mg/dL (0.1-20.0) H 04/24/21 04:00 Urine Sodium 10 mmol/L 04/21/21 18:45 Urine Total Protein 186 mg/dL (5-11.8) H 04/21/21 18:45 Medications & Allergies - Medications Allergies/Adverse Reactions: Allergies No Known Allergies Allergy (Verified 04/20/21 08:43) Home Medications: Home Medications Medication Instructions Recorded Confirmed Last Taken Type Multivit-Min/Folic/Vit K/Lycop 1 tab PO QDAY 04/21/21 04/21/21 3 Days Ago History [Men's Multivitamin Tablet] ~04/18/21 Active Medications: Generic Name Dose Route Start Last Admin Trade Name Freq PRN Reason Stop Dose Admin Acetaminophen 650 mg 04/20/21 15:00 04/23/21 21:29 Acetaminophen 325 Mg Tab PO 650 mg Q4H PRN Administration Pain MILD(1-3)/Fever >100.5/[place] Heparin Sodium (Porcine) 5,000 unit 04/21/21 09:00 04/24/21 09:44 Heparin 5,000 Unit/1 Ml Vial SUB-Q Not Given Q8H SANTOS Hydromorphone HCl 1 mg 04/23/21 15:18 Hydromorphone 1 Mg/1 Ml Inj IV Q4H PRN Pain , Severe (7-10) Ondansetron HCl 8 mg 04/23/21 13:00 Ondansetron 8 Mg Odt Tab PO Q8H PRN Nausea And Vomiting Oxycodone/Acetaminophen 1 tab 04/20/21 15:00 04/21/21 09:05 Oxycodone /Acetaminophen 5-325mg Tab PO 1 tab Q6H PRN Administration Pain, Moderate (4-6) Sodium Chloride 10 ml 04/20/21 22:00 04/23/21 21:30 Sodium Chloride 0.9% 10 Ml Flush Syringe IV 10 ml BID SANTOS Administration Sodium Chloride 10 ml 04/20/21 15:00 Sodium Chloride 0.9% 10 Ml Flush Syringe IV PRN PRN LINE FLUSH Sodium Chloride 10 ml 04/20/21 15:00 Sodium Chloride 0.9% 50 Ml Ivpb IV PRN PRN FLUSH
--- NOTE | 2021-04-24 14:13 | Progress Note ---
Assessment and Plan Assessment and plan: #Acute gastroenteritisimproving Etiology is currently unclear; however, might be secondary to uremia Pending stool cultures and C. difficile PCR Ordering HIV to rule out possible immunocompromise state Continue with Zofran and IV fluids #BILLIE versus CKD stage IV Creatinine 4.8 (creatinine 1.2 in 2019) Urine osmolality 317, urine sodium 10, urine potassium 1, urine chloride 10, urine total protein 186 Aggressive IV fluid resuscitation to improve creatinine Nephrology consulted; appreciate recs Renally dose medications and avoid nephrotoxic meds Continue to monitor #Hyponatremia Sodium 122 Secondary to aggressive IV fluid resuscitation. Discontinued IV fluids. Patient placed on fluid restriction. She will continue to improve with fluid restriction. Continue to monitor. #COVID-19 infection Positive coronavirus PCR Placing on contact and droplet precautions. Transferring to Covid floor. Patient is not hypoxic or hypotensive; therefore, patient does not require steroids or remdesivir at this time. Continue to monitor. #Hyperkalemiaresolved Potassium 4.5 Status post medical management of hyperkalemia in the ED. Likely secondary to renal failure Continue to monitor #Elevated blood pressure Patient denies having history of hypertension; however, patient also admits to last seeing a physician approximately 19 years ago We will initiate antihypertensives if blood pressure continues to remain chronically elevated Continue to monitor #Dehydration Currently treating with IV fluids Continue to monitor #Iron deficiency anemia #Transfusion reaction Hemoglobin 6.6 (unknown baseline). Patient underwent transfusion reactions to include fever of greater than 101 during transfusion of blood. Transfusion was stopped immediately. Posttransfusion type and screen was ordered. Patient rem ained hemodynamically stable with no additional complaints. Patient has no history of prior transfusion reaction; however, patient has never had transfusion of blood products before. Denies melena or hematochezia or hematemesis Likely secondary to chronic renal disease (anemia chronic disease) Iron studies revealing: Iron 15, TIBC 139, transferrin 121 Status post IV iron repletion x1day. Continue to monitor #Advanced care planning -Disease education conducted, care plan discussed, diagnoses discussed, prognosis discussed, and patient acknowledges understanding with care plan -Time: +30 min #Discharge planning - Patient is pending resolution of hyponatremia. Can consider discharging if sodium is greater than 129. - Case management has been made aware. Disposition Plan: Continue medical management Total Time Spent with Patient (Minutes): 45 minutes History Interval history: Patient was febrile to 102.3. Hospitalist Physical - Constitutional Vitals: Temp Pulse Resp BP Pulse Ox 102.3 F H 91 H 16 140/87 91 04/24/21 07:36 04/24/21 07:36 04/24/21 07:36 04/24/21 07:36 04/24/21 07:36 General appearance: Present: no acute distress, well-nourished - EENT Eyes: Present: PERRL, EOM intact ENT: hearing intact, clear oral mucosa, poor dentition - Neck Neck: Present: supple, normal ROM - Respiratory Respiratory effort: normal Respiratory: bilateral: CTA - Cardiovascular Rhythm: regular Heart Sounds: Present: S1 & S2 - Extremities Extremities: no ischemia, pulses intact, pulses symmetrical, No edema, normal temperature, normal color, Full ROM Peripheral Pulses: within normal limits - Abdominal General gastrointestinal: soft, non-tender, non-distended, normal bowel sounds - Integumentary Integumentary: Present: clear, warm, dry - Psychiatric Psychiatric: appropriate mood/affect, intact judgment & insight, memory intact, cooperative - Neurologic Neurologic: CNII-XII intact, moves all extremities HEART Score - HEART Score Troponin: Troponin T < 0.010 ng/mL (0.00-0.029) 04/20/21 10:46 Results - Labs CBC & Chem 7: 04/22/21 05:40 04/24/21 07:19 Labs: Laboratory Last Values WBC 6.3 K/mm3 (4.5-11.0) 04/22/21 05:40 RBC 2.18 M/mm3 (3.65-5.03) L 04/22/21 05:40 Hgb 6.6 gm/dl (11.8-15.2) L 04/22/21 05:40 Hct 20.3 % (35.5-45.6) L 04/22/21 05:40 MCV 93 fl (84-94) 04/22/21 05:40 MCH 30 pg (28-32) 04/22/21 05:40 MCHC 32 % (32-34) 04/22/21 05:40 RDW 12.9 % (13.2-15.2) L 04/22/21 05:40 Plt Count 247 K/mm3 (140-440) 04/22/21 05:40 Add Manual Diff Complete 04/22/21 05:40 Total Counted 100 04/22/21 05:40 Seg Neuts % (Manual) 74.0 % (40.0-70.0) H 04/22/21 05:40 Band Neutrophils % 0 % 04/22/21 05:40 Lymphocytes % (Manual) 13.0 % (13.4-35.0) L 04/22/21 05:40 Reactive Lymphs % (Man) 0 % 04/22/21 05:40 Monocytes % (Manual) 12.0 % (0.0-7.3) H 04/22/21 05:40 Eosinophils % (Manual) 1.0 % (0.0-4.3) 04/22/21 05:40 Basophils % (Manual) 0 % (0.0-1.8) 04/22/21 05:40 Metamyelocytes % 0 % 04/22/21 05:40 Myelocytes % 0 % 04/22/21 05:40 Promyelocytes % 0 % 04/22/21 05:40 Blast Cells % 0 % 04/22/21 05:40 Nucleated RBC % Not Reportable 04/22/21 05:40 Seg Neutrophils # Man 4.7 K/mm3 (1.8-7.7) 04/22/21 05:40 Band Neutrophils # 0.0 K/mm3 04/22/21 05:40 Lymphocytes # (Manual) 0.8 K/mm3 (1.2-5.4) L 04/22/21 05:40 Abs React Lymphs (Man) 0.0 K/mm3 04/22/21 05:40 Monocytes # (Manual) 0.8 K/mm3 (0.0-0.8) 04/22/21 05:40 Eosinophils # (Manual) 0.1 K/mm3 (0.0-0.4) 04/22/21 05:40 Basophils # (Manual) 0.0 K/mm3 (0.0-0.1) 04/22/21 05:40 Metamyelocytes # 0.0 K/mm3 04/22/21 05:40 Myelocytes # 0.0 K/mm3 04/22/21 05:40 Promyelocytes # 0.0 K/mm3 04/22/21 05:40 Blast Cells # 0.0 K/mm3 04/22/21 05:40 WBC Morphology Not Reportable 04/22/21 05:40 Hypersegmented Neuts Not Reportable 04/22/21 05:40 Hyposegmented Neuts Not Reportable 04/22/21 05:40 Hypogranular Neuts Not Reportable 04/22/21 05:40 Smudge Cells Not Reportable 04/22/21 05:40 Toxic Granulation Not Reportable 04/22/21 05:40 Toxic Vacuolation Not Reportable 04/22/21 05:40 Dohle Bodies Not Reportable 04/22/21 05:40 Pelger-Huet Anomaly Not Reportable 04/22/21 05:40 Karishma Rods Not Reportable 04/22/21 05:40 Platelet Estimate Consistent w auto 04/22/21 05:40 Clumped Platelets Not Reportable 04/22/21 05:40 Plt Clumps, EDTA Not Reportable 04/22/21 05:40 Large Platelets Not Reportable 04/22/21 05:40 Giant Platelets Not Reportable 04/22/21 05:40 Platelet Satelliting Not Reportable 04/22/21 05:40 Plt Morphology Comment Not Reportable 04/22/21 05:40 RBC Morphology Normal 04/22/21 05:40 Dimorphic RBCs Not Reportable 04/22/21 05:40 Polychromasia Not Reportable 04/22/21 05:40 Hypochromasia Not Reportable 04/22/21 05:40 Poikilocytosis Not Reportable 04/22/21 05:40 Anisocytosis Not Reportable 04/22/21 05:40 Microcytosis Not Reportable 04/22/21 05:40 Macrocytosis Not Reportable 04/22/21 05:40 Spherocytes Not Reportable 04/22/21 05:40 Pappenheimer Bodies Not Reportable 04/22/21 05:40 Sickle Cells Not Reportable 04/22/21 05:40 Target Cells Not Reportable 04/22/21 05:40 Tear Drop Cells Not Reportable 04/22/21 05:40 Ovalocytes Not Reportable 04/22/21 05:40 Helmet Cells Not Reportable 04/22/21 05:40 Bragg-Haughton Bodies Not Reportable 04/22/21 05:40 Halma Rings Not Reportable 04/22/21 05:40 Bernarda Cells Not Reportable 04/22/21 05:40 Bite Cells Not Reportable 04/22/21 05:40 Crenated Cell Not Reportable 04/22/21 05:40 Elliptocytes Not Reportable 04/22/21 05:40 Acanthocytes (Spur) Not Reportable 04/22/21 05:40 Rouleaux Not Reportable 04/22/21 05:40 Hemoglobin C Crystals Not Reportable 04/22/21 05:40 Schistocytes Not Reportable 04/22/21 05:40 Malaria parasites Not Reportable 04/22/21 05:40 Angus Bodies Not Reportable 04/22/21 05:40 Hem Pathologist Commnt No 04/22/21 05:40 Sodium 122 mmol/L (137-145) L D 04/24/21 07:19 Potassium 4.9 mmol/L (3.6-5.0) 04/24/21 07:19 Chloride 95.2 mmol/L (98-107) L 04/24/21 07:19 Carbon Dioxide 18 mmol/L (22-30) L 04/24/21 07:19 Anion Gap 14 mmol/L 04/24/21 07:19 BUN 46 mg/dL (9-20) H 04/24/21 07:19 Creatinine 4.9 mg/dL (0.8-1.3) H 04/24/21 07:19 Estimated GFR 16 ml/min 04/24/21 07:19 BUN/Creatinine Ratio 9 % 04/24/21 07:19 Glucose 86 mg/dL (75-100) 04/24/21 07:19 POC Glucose 112 mg/dL (70-105) H 04/20/21 18:30 Calcium 8.2 mg/dL (8.4-10.2) L 04/24/21 07:19 Phosphorus 3.40 mg/dL (2.5-4.5) 04/24/21 07:19 Magnesium 1.50 mg/dL (1.7-2.3) L 04/23/21 05:45 Iron 15 ug/dL (49-181) L 04/21/21 12:35 TIBC 139 mcg/dL (250-450) L 04/21/21 12:35 % Saturation 10.79 % 04/21/21 12:35 Transferrin 121 mg/dl (180-329) L 04/21/21 12:35 Total Bilirubin < 0.20 mg/dL (0.1-1.2) 04/20/21 08:57 AST 30 units/L (5-40) 04/20/21 08:57 ALT 16 units/L (7-56) 04/20/21 08:57 Alkaline Phosphatase 61 units/L (35-129) 04/20/21 08:57 Lactate Dehydrogenase 544 units/L (91-180) H 04/22/21 Unknown Total Creatine Kinase 42 units/L (55-170) L 04/22/21 Unknown Troponin T < 0.010 ng/mL (0.00-0.029) 04/20/21 10:46 Total Protein 7.7 g/dL (6.3-8.2) 04/20/21 08:57 Albumin 3.0 g/dL (3.9-5) L 04/20/21 08:57 Albumin/Globulin Ratio 0.6 % 04/20/21 08:57 Lipase 36 units/L (13-60) 04/20/21 08:57 Vitamin B12 1198 pg/mL (211-911) H 04/21/21 12:35 TSH 3.120 mlU/mL (0.270-4.200) 04/20/21 10:46 PTH Intact 37.23 pg/mL (15-65) 04/21/21 12:35 Urine Color Straw (Yellow) 04/22/21 14:51 Urine Turbidity Clear (Clear) 04/22/21 14:51 Urine pH 9.0 (5.0-7.0) H 04/22/21 14:51 Ur Specific [place] 1.007 (1.003-1.030) 04/22/21 14:51 Urine Protein >500 mg/dL (Negative) 04/22/21 14:51 Urine Glucose (UA) Neg mg/dL (Negative) 04/22/21 14:51 Urine Ketones Neg mg/dL (Negative) 04/22/21 14:51 Urine Blood Neg (Negative) 04/22/21 14:51 Urine Nitrite Neg (Negative) 04/22/21 14:51 Urine Bilirubin Neg (Negative) 04/22/21 14:51 Urine Urobilinogen < 2.0 mg/dL (<2.0) 04/22/21 14:51 Ur Leukocyte Esterase Neg (Negative) 04/22/21 14:51 Urine WBC (Auto) 1.0 /HPF (0.0-6.0) 04/22/21 14:51 Urine RBC (Auto) 1.0 /HPF (0.0-6.0) 04/22/21 14:51 Urine Eosinophils None seen (None Seen) 04/21/21 18:45 Urine Osmolality 317 Mosm/kg 04/21/21 18:45 Urine Total Volume 2900 ml 04/24/21 04:00 Urine Creatinine 44.3 mg/dL (0.1-20.0) H 04/24/21 04:00 Ur Creatinine 24 Hour 1.3 (0.8-2.8) 04/24/21 04:00 Protein/Creatinin Ratio 2.77 04/21/21 18:45 Urine Sodium 10 mmol/L 04/21/21 18:45 Urine Potassium 1.00 mmol/L 04/21/21 18:45 Urine Chloride 10.0 mmolL (110-250) L 04/21/21 18:45 Urine Calcium < 0.8 mg/dL (6.8-21.3) L 04/21/21 18:45 Urine Total Protein 186 mg/dL (5-11.8) H 04/21/21 18:45 Coronavirus (PCR) Positive (Negative) A 04/24/21 Unknown Schistocytes Smear None 04/22/21 Unknown Blood Type O POSITIVE 04/22/21 08:12 Antibody Screen Negative 04/22/21 08:12 Crossmatch See Detail 04/22/21 08:12 Krishnan/IV: Voiding Method Urinal Active Medications - Current Medications Current Medications: Generic Name Dose Route Start Last Admin Trade Name Freq PRN Reason Stop Dose Admin Acetaminophen 650 mg 04/20/21 15:00 04/23/21 21:29 Acetaminophen 325 Mg Tab PO 650 mg Q4H PRN Administration Pain MILD(1-3)/Fever >100.5/LANG[place] Heparin Sodium (Porcine) 5,000 unit 04/21/21 09:00 04/24/21 09:44 Heparin 5,000 Unit/1 Ml Vial SUB-Q Not Given Q8H SANTOS Hydromorphone HCl 1 mg 04/23/21 15:18 Hydromorphone 1 Mg/1 Ml Inj IV Q4H PRN Pain , Severe (7-10) Ondansetron HCl 8 mg 04/23/21 13:00 Ondansetron 8 Mg Odt Tab PO Q8H PRN Nausea And Vomiting Oxycodone/Acetaminophen 1 tab 04/20/21 15:00 04/21/21 09:05 Oxycodone /Acetaminophen 5-325mg Tab PO 1 tab Q6H PRN Administration Pain, Moderate (4-6) Sodium Chloride 10 ml 04/20/21 22:00 04/23/21 21:30 Sodium Chloride 0.9% 10 Ml Flush Syringe IV 10 ml BID SANTOS Administration Sodium Chloride 10 ml 04/20/21 15:00 Sodium Chloride 0.9% 10 Ml Flush Syringe IV PRN PRN LINE FLUSH Sodium Chloride 10 ml 04/20/21 15:00 Sodium Chloride 0.9% 50 Ml Ivpb IV PRN PRN FLUSH Nutrition/Malnutrition Assess - Dietary Evaluation Nutrition/Malnutrition Findings: Nutrition Notes Start: 04/21/21 14:23 Freq: Status: Active Protocol: Document 04/21/21 14:23 DALY (Rec: 04/21/21 14:41 DALY [id number]) Nutrition Notes 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 Current Diet Renal Diet (since D 04/20). Labs/Tests 04/21: K 5.1, BUN 53, Crea 5.0 . Pertinent Medications 04/21: nutritionally unremarkable. Height 6 ft 2 in Weight 62.959 kg [place] Body Weight (kg) 86.36 BMI 17.8 Intake Prior to Admission Poor Weight change and time frame Pt states having loss more than 34 lbs [employer]. Weight Status Underweight Subjective/Other Information RD consult for Low BMI assessment and risk of malnutrition. No reports available on Pt's PO intake of measls at the time. Pt shows no signs of concer for risk of malnutrition at the time according to Physical Assessment history notes. Anemia diagnosis is being trated with blood transfusion and body weight will be monitored daily. Pt's Low BMI seems to correspond to a natural body composition, and not related to a chronic malnutrition, since it was not mentioned in the Physical Assessment History or the Progress notes. Percent of energy/protein needs met: Prescribed Renal Diet provides for energy/protein needs (2, 072 Kcal/77 g) during LOS. Burn Absent Trauma Absent GI Symptoms Nausea,Vomiting,Diarrhea Food Allergy No Skin Integrity/Comment Clear, warm, dry. Minimum of two criteria No Nutrition Intervention Follow-Up By: 04/28/21 Additional Comments Continue monitoring food tolerance, %PO intake of meals , and BM.
[2021-04-24] MEDS: ACETAMINOPHEN 325 MG TAB PO PRN ×2 (15:02→22:27)
[2021-04-24 15:07] LABS: Eosinophils % (Auto) 0.2 % (0.0-4.3); Monocytes # (Auto) 0.5 K/mm3 (0.0-0.8); Monocytes % (Auto) 7.6 % (0.0-7.3)
[2021-04-24] MEDS ORDERED: SODIUM CHLORIDE 0.9% 1000 ML 1,000 ML IV SCH (15:15)
[2021-04-24 15:22] LABS: Calcium 8.4 mg/dL (8.4-10.2); Hematocrit 21.4 % (35.5-45.6); Hemoglobin 7.1 gm/dl (11.8-15.2); Mean Corpuscular Volume 94 fl (84-94); Red Blood Count 2.27 M/mm3 (3.65-5.03)
[2021-04-24 15:23] LABS: Basophils % (Auto) 0.2 % (0.0-1.8); Lymphocytes # (Auto) 0.7 K/mm3 (1.2-5.4); Lymphocytes % (Auto) 10.7 % (13.4-35.0); Mean Corpuscular HGB Conc 33 % (32-34); Platelet Count 204 K/mm3 (140-440)
[2021-04-24] MEDS: ONDANSETRON 8 MG ODT TAB PO PRN (23:55)
[2021-04-25] MEDS: HEPARIN 5,000 UNIT/1 ML VIAL SUB-Q SCH ×3 (01:31→18:23)
[2021-04-25] MEDS: ACETAMINOPHEN 325 MG TAB PO PRN ×4 (05:44→20:38)
[2021-04-25 07:55] LABS: Calcium 8.5 mg/dL (8.4-10.2)
--- NOTE | 2021-04-25 09:08 | Progress Note ---
Assessment and Plan Assessment and plan: 40-year-old -Lithuanian male with no significant past medical history and no known chronic kidney disease comes in for persistent vomiting and diarrhea and weight loss for last 2 weeks. Patient says he lost about 40 pounds unintentionally since last 2 weeks. Patient has been having 4-5 episodes of vomiting per day and 4-5 episodes of loose stools per day. No abdominal pain. No recent travel. No fever or chills. In the emergency room patient's BUN/creatinine was high at 54/4.7. #Acute gastroenteritisimproving Etiology is currently unclear; however, might be secondary to uremia versus COVID-19 infection Pending stool cultures and C. difficile PCR Ordering HIV to rule out possible immunocompromise state Continue with Zofran and IV fluids #BILLIE versus CKD stage IV No improvement of creatinine, ultrasound findings suggestive of CKD Urine osmolality 317, urine sodium 10, urine potassium 1, urine chloride 10, urine total protein 186 Aggressive IV fluid resuscitation to improve creatinine Nephrology consulted; appreciate recs Renally dose medications and avoid nephrotoxic meds Continue to monitor #Hyponatremia Sodium 122, improving to 134 today Secondary to aggressive IV fluid resuscitation. Discontinued IV fluids. Patient placed on fluid restriction. continue to improve with fluid restriction. Continue to monitor. #COVID-19 infection Positive coronavirus PCR Placing on contact and droplet precautions. Transferring to [facility] floor. Patient is not hypoxic or hypotensive; therefore, patient does not require steroids or remdesivir at this time. Continue to monitor. #Hyperkalemiaresolved Potassium 4.5 Status post medical management of hyperkalemia in the ED. Likely secondary to renal failure Continue to monitor #Elevated blood pressure Patient denies having history of hypertension; however, patient also admits to last seeing a physician approximately 19 years ago We will initiate antihypertensives if blood pressure continues to remain chronically elevated Continue to monitor #Dehydration Currently treating with IV fluids Continue to monitor #Iron deficiency anemia #Transfusion reaction Hemoglobin 6.6 (unknown baseline). Patient underwent transfusion reactions to include fever of greater than 101 during transfusion of blood. Transfusion was stopped immediately. Posttransfusion type and screen was ordered. Patient remained hemodynamically stable with no additional complaints. Patient has no history of prior transfusion reaction; however, patient has never had transfusion of blood products before. Denies melena or hematochezia or hematemesis Likely secondary to chronic renal disease (anemia chronic disease) Iron studies revealing: Iron 15, TIBC 139, transferrin 121 Status post IV iron repletion x1day. Continue to monitor #Advanced care planning -Disease education conducted, care plan discussed, diagnoses discussed, prognosis discussed, and patient acknowledges understanding with care plan -Time: +30 min #Discharge planning -Will be discharged when renal function gets stabilized and cleared by nephrology Disposition Plan: Continue medical management History Interval history: Patient is rude and uncooperative with the nursing staff. He does not give accurate account of BMs. Per patient, he had 2 beers today and he is avoiding eating to avoid diarrhea. Patient complains of nausea but no vomiting. No body swelling. Hemodynamically stable. Creatinine not much improved. Hospitalist Physical - Constitutional Vitals: Temp Pulse Resp BP Pulse Ox 99.3 F 88 6 L 142/92 98 04/24/21 21:19 04/24/21 21:19 04/24/21 21:19 04/24/21 21:19 04/25/21 08:14 General appearance: Present: no acute distress, well-nourished - EENT Eyes: Present: PERRL, EOM intact ENT: clear oral mucosa - Neck Neck: Present: supple - Respiratory Respiratory effort: normal Respiratory: bilateral: CTA - Cardiovascular Rhythm: regular - Extremities Extremities: No edema - Abdominal General gastrointestinal: soft, non-tender, non-distended - Integumentary Integumentary: Absent: rash - Psychiatric Psychiatric: no intact judgment & insight, no cooperative, other (Anxious) - Neurologic Neurologic: moves all extremities HEART Score - HEART Score Troponin: Troponin T < 0.010 ng/mL (0.00-0.029) 04/20/21 10:46 Results - Labs CBC & Chem 7: 04/24/21 14:28 04/25/21 06:57 Labs: Laboratory Last Values WBC 6.2 K/mm3 (4.5-11.0) 04/24/21 14:28 RBC 2.27 M/mm3 (3.65-5.03) L 04/24/21 14:28 Hgb 7.1 gm/dl (11.8-15.2) L 04/24/21 14:28 Hct 21.4 % (35.5-45.6) L 04/24/21 14:28 MCV 94 fl (84-94) 04/24/21 14:28 MCH 31 pg (28-32) 04/24/21 14:28 MCHC 33 % (32-34) 04/24/21 14: RDW 13.0 % (13.2-15.2) L 04/24/21 14:28 Plt Count 204 K/mm3 (140-440) 04/24/21 14:28 Lymph % (Auto) 10.7 % (13.4-35.0) L 04/24/21 14:28 [place] % (Auto) 7.6 % (0.0-7.3) H 04/24/21 14: Eos % (Auto) 0.2 % (0.0-4.3) 04/24/21 14: Baso % (Auto) 0.2 % (0.0-1.8) 04/24/21 14: Lymph # (Auto) 0.7 K/mm3 (1.2-5.4) L 04/24/21 14: [place] # (Auto) 0.5 K/mm3 (0.0-0.8) 04/24/21 14: Eos # (Auto) 0.0 K/mm3 (0.0-0.4) 04/24/21 14: Baso # (Auto) 0.0 K/mm3 (0.0-0.1) 04/24/21 14:28 Add Manual Diff Complete 04/22/21 05:40 Total Counted 100 04/22/21 05:40 Seg Neutrophils % 81.3 % (40.0-70.0) H 04/24/21 14:28 Seg Neuts % (Manual) 74.0 % (40.0-70.0) H 04/22/21 05:40 Band Neutrophils % 0 % 04/22/21 05:40 Lymphocytes % (Manual) 13.0 % (13.4-35.0) L 04/22/21 05:40 Reactive Lymphs % (Man) 0 % 04/22/21 05:40 Monocytes % (Manual) 12.0 % (0.0-7.3) H 04/22/21 05:40 Eosinophils % (Manual) 1.0 % (0.0-4.3) 04/22/21 05:40 Basophils % (Manual) 0 % (0.0-1.8) 04/22/21 05:40 Metamyelocytes % 0 % 04/22/21 05:40 Myelocytes % 0 % 04/22/21 05:40 Promyelocytes % 0 % 04/22/21 05:40 Blast Cells % 0 % 04/22/21 05:40 Nucleated RBC % Not Reportable 04/22/21 05:40 Seg Neutrophils # 5.0 K/mm3 (1.8-7.7) 04/24/21 14:28 Seg Neutrophils # Man 4.7 K/mm3 (1.8-7.7) 04/22/21 05:40 Band Neutrophils # 0.0 K/mm3 04/22/21 05:40 Lymphocytes # (Manual) 0.8 K/mm3 (1.2-5.4) L 04/22/21 05:40 Abs React Lymphs (Man) 0.0 K/mm3 04/22/21 05:40 Monocytes # (Manual) 0.8 K/mm3 (0.0-0.8) 04/22/21 05:40 Eosinophils # (Manual) 0.1 K/mm3 (0.0-0.4) 04/22/21 05:40 Basophils # (Manual) 0.0 K/mm3 (0.0-0.1) 04/22/21 05:40 Metamyelocytes # 0.0 K/mm3 04/22/21 05:40 Myelocytes # 0.0 K/mm3 04/22/21 05:40 Promyelocytes # 0.0 K/mm3 04/22/21 05:40 Blast Cells # 0.0 K/mm3 04/22/21 05:40 WBC Morphology Not Reportable 04/22/21 05:40 Hypersegmented Neuts Not Reportable 04/22/21 05:40 Hyposegmented Neuts Not Reportable 04/22/21 05:40 Hypogranular Neuts Not Reportable 04/22/21 05:40 Smudge Cells Not Reportable 04/22/21 05:40 Toxic Granulation Not Reportable 04/22/21 05:40 Toxic Vacuolation Not Reportable 04/22/21 05:40 Dohle Bodies Not Reportable 04/22/21 05:40 Pelger-Huet Anomaly Not Reportable 04/22/21 05:40 Karishma Rods Not Reportable 04/22/21 05:40 Platelet Estimate Consistent w auto 04/22/21 05:40 Clumped Platelets Not Reportable 04/22/21 05:40 Plt Clumps, EDTA Not Reportable 04/22/21 05:40 Large Platelets Not Reportable 04/22/21 05:40 Giant Platelets Not Reportable 04/22/21 05:40 Platelet Satelliting Not Reportable 04/22/21 05:40 Plt Morphology Comment Not Reportable 04/22/21 05:40 RBC Morphology Normal 04/22/21 05:40 Dimorphic RBCs Not Reportable 04/22/21 05:40 Polychromasia Not Reportable 04/22/21 05:40 Hypochromasia Not Reportable 04/22/21 05:40 Poikilocytosis Not Reportable 04/22/21 05:40 Anisocytosis Not Reportable 04/22/21 05:40 Microcytosis Not Reportable 04/22/21 05:40 Macrocytosis Not Reportable 04/22/21 05:40 Spherocytes Not Reportable 04/22/21 05:40 Pappenheimer Bodies Not Reportable 04/22/21 05:40 Sickle Cells Not Reportable 04/22/21 05:40 Target Cells Not Reportable 04/22/21 05:40 Tear Drop Cells Not Reportable 04/22/21 05:40 Ovalocytes Not Reportable 04/22/21 05:40 Helmet Cells Not Reportable 04/22/21 05:40 [place] Bodies Not Reportable 04/22/21 05:40 [place] Rings Not Reportable 04/22/21 05:40 [place] Cells Not Reportable 04/22/21 05:40 Bite Cells Not Reportable 04/22/21 05:40 Crenated Cell Not Reportable 04/22/21 05:40 Elliptocytes Not Reportable 04/22/21 05:40 Acanthocytes (Spur) Not Reportable 04/22/21 05:40 Rouleaux Not Reportable 04/22/21 05:40 Hemoglobin C Crystals Not Reportable 04/22/21 05:40 Schistocytes Not Reportable 04/22/21 05:40 Malaria parasites Not Reportable 04/22/21 05:40 Angus Bodies Not Reportable 04/22/21 05:40 Hem Pathologist Commnt No 04/22/21 05:40 Sodium 134 mmol/L (137-145) L D 04/25/21 06:57 Potassium 3.9 mmol/L (3.6-5.0) 04/25/21 06:57 Chloride 101.4 mmol/L (98-107) 04/25/21 06:57 Carbon Dioxide 20 mmol/L (22-30) L 04/25/21 06:57 Anion Gap 17 mmol/L 04/25/21 06:57 BUN 51 mg/dL (9-20) H 04/25/21 06:57 Creatinine 5.3 mg/dL (0.8-1.3) H 04/25/21 06:57 Estimated GFR 15 ml/min 04/25/21 06:57 BUN/Creatinine Ratio 10 % 04/25/21 06:57 Glucose 128 mg/dL (75-100) H 04/25/21 06:57 POC Glucose 112 mg/dL (70-105) H 04/20/21 18:30 Calcium 8.5 mg/dL (8.4-10.2) 04/25/21 06:57 Phosphorus 4.70 mg/dL (2.5-4.5) H D 04/25/21 06:57 Magnesium 1.50 mg/dL (1.7-2.3) L 04/23/21 05:45 Iron 15 ug/dL (49-181) L 04/21/21 12:35 TIBC 139 mcg/dL (250-450) L 04/21/21 12:35 % Saturation 10.79 % 04/21/21 12:35 Transferrin 121 mg/dl (180-329) L 04/21/21 12:35 Total Bilirubin < 0.20 mg/dL (0.1-1.2) 04/20/21 08:57 AST 30 units/L (5-40) 04/20/21 08:57 ALT 16 units/L (7-56) 04/20/21 08:57 Alkaline Phosphatase 61 units/L (35-129) 04/20/21 08:57 Lactate Dehydrogenase 544 units/L (91-180) H 04/22/21 Unknown Total Creatine Kinase 42 units/L (55-170) L 04/22/21 Unknown Troponin T < 0.010 ng/mL (0.00-0.029) 04/20/21 10:46 Total Protein 7.7 g/dL (6.3-8.2) 04/20/21 08:57 Albumin 3.0 g/dL (3.9-5) L 04/20/21 08:57 Albumin/Globulin Ratio 0.6 % 04/20/21 08:57 Lipase 36 units/L (13-60) 04/20/21 08:57 Vitamin B12 1198 pg/mL (211-911) H 04/21/21 12:35 TSH 3.120 mlU/mL (0.270-4.200) 04/20/21 10:46 PTH Intact 37.23 pg/mL (15-65) 04/21/21 12:35 Urine Color Straw (Yellow) 04/22/21 14:51 Urine Turbidity Clear (Clear) 04/22/21 14:51 Urine pH 9.0 (5.0-7.0) H 04/22/21 14:51 Ur Specific [place] 1.007 (1.003-1.030) 04/22/21 14:51 Urine Protein >500 mg/dL (Negative) 04/22/21 14:51 Urine Glucose (UA) Neg mg/dL (Negative) 04/22/21 14:51 Urine Ketones Neg mg/dL (Negative) 04/22/21 14:51 Urine Blood Neg (Negative) 04/22/21 14:51 Urine Nitrite Neg (Negative) 04/22/21 14:51 Urine Bilirubin Neg (Negative) 04/22/21 14:51 Urine Urobilinogen < 2.0 mg/dL (<2.0) 04/22/21 14:51 Ur Leukocyte Esterase Neg (Negative) 04/22/21 14:51 Urine WBC (Auto) 1.0 /HPF (0.0-6.0) 04/22/21 14:51 Urine RBC (Auto) 1.0 /HPF (0.0-6.0) 04/22/21 14:51 Urine Eosinophils None seen (None Seen) 04/21/21 18:45 Urine Osmolality 317 Mosm/kg 04/21/21 18:45 Urine Total Volume 2900 ml 04/24/21 04:00 Urine Creatinine 44.3 mg/dL (0.1-20.0) H 04/24/21 04:00 Ur Creatinine 24 Hour 1.3 (0.8-2.8) 04/24/21 04:00 Protein/Creatinin Ratio 2.77 04/21/21 18:45 Urine Sodium 10 mmol/L 04/21/21 18:45 Urine Potassium 1.00 mmol/L 04/21/21 18:45 Urine Chloride 10.0 mmolL (110-250) L 04/21/21 18:45 Urine Calcium < 0.8 mg/dL (6.8-21.3) L 04/21/21 18:45 Urine Total Protein 186 mg/dL (5-11.8) H 04/21/21 18:45 Coronavirus (PCR) Positive (Negative) A 04/24/21 Unknown Schistocytes Smear None 04/22/21 Unknown Blood Type O POSITIVE 04/22/21 08:12 Antibody Screen Negative 04/22/21 08:12 Crossmatch See Detail 04/22/21 08:12 Krishnan/IV: Voiding Method Urinal Active Medications - Current Medications Current Medications: Generic Name Dose Route Start Last Admin Trade Name Freq PRN Reason Stop Dose Admin Acetaminophen 650 mg 04/20/21 15:00 04/25/21 05:44 Acetaminophen 325 Mg Tab PO 650 mg Q4H PRN Administration Pain MILD(1-3)/Fever >100.5/LANGLEY Heparin Sodium (Porcine) 5,000 unit 04/21/21 09:00 04/25/21 01:31 Heparin 5,000 Unit/1 Ml Vial SUB-Q Not Given Q8H SANTSO Hydromorphone HCl 1 mg 04/23/21 15:18 Hydromorphone 1 Mg/1 Ml Inj IV Q4H PRN Pain , Severe (7-10) Sodium Chloride 1,000 mls @ 125 mls/hr 04/24/21 15:15 04/25/21 05:45 Nacl 0.9% 1000 Ml IV 125 mls/hr DIRECT SANTOS Administration Ondansetron HCl 8 mg 04/23/21 13:00 04/24/21 23:55 Ondansetron 8 Mg Odt Tab PO 8 mg Q8H PRN Administration Nausea And Vomiting Oxycodone/Acetaminophen 1 tab 04/20/21 15:00 04/21/21 09:05 Oxycodone /Acetaminophen 5-325mg Tab PO 1 tab Q6H PRN Administration Pain, Moderate (4-6) Sodium Chloride 10 ml 04/20/21 22:00 04/24/21 22:09 Sodium Chloride 0.9% 10 Ml Flush Syringe IV 10 ml BID SANTOS Administration Sodium Chloride 10 ml 04/20/21 15:00 Sodium Chloride 0.9% 10 Ml Flush Syringe IV PRN PRN LINE FLUSH Sodium Chloride 10 ml 04/20/21 15:00 Sodium Chloride 0.9% 50 Ml Ivpb IV PRN PRN FLUSH Nutrition/Malnutrition Assess - Dietary Evaluation Nutrition/Malnutrition Findings: Nutrition Notes Start: 04/21/21 14:23 Freq: Status: Active Protocol: Document 04/21/21 14:23 DALY (Rec: 04/21/21 14:41 DALY [id number]) Nutrition Notes 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 Current Diet Renal Diet (since D 04/20). Labs/Tests 04/21: K 5.1, BUN 53, Crea 5.0 . Pertinent Medications 04/21: nutritionally unremarkable. 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 Weight Status Underweight Subjective/Other Information RD consult for Low BMI assessment and risk of malnutrition. No reports available on Pt's PO intake of measls at the time. Pt shows no signs of concer for risk of malnutrition at the time according to Physical Assessment history notes. Anemia diagnosis is being trated with blood transfusion and body weight will be monitored daily. Pt's Low BMI seems to correspond to a natural body composition, and not related to a chronic malnutrition, since it was not mentioned in the Physical Assessment History or the Progress notes. Percent of energy/protein needs met: Prescribed Renal Diet provides for energy/protein needs (2, 072 Kcal/77 g) during LOS. Burn Absent Trauma Absent GI Symptoms Nausea,Vomiting,Diarrhea Food Allergy No Skin Integrity/Comment Clear, warm, dry. Minimum of two criteria No Nutrition Intervention Follow-Up By: 04/28/21 Additional Comments Continue monitoring food tolerance, %PO intake of meals , and BM.
--- NOTE | 2021-04-25 10:44 | Progress Note ---
Assessment and Plan Assessment and Plan Acute kidney injury, likely prerenal azotemia, possible CKD Hyperkalemia Covid 19 Anemia Diarrhea weight loss Plan: Cr slightly better. will check 24 hours urine Cr clearance Has 2.77 grams protein, likely has CKD, check secondary neph w/u with CHANDNI, C3/C4, Anti-DsDNA, SPEP, UPEP, Serum IFx, Hep panel, HIV. Ordered LDH and periperal smear, smear -ve for shistocytes, no thrombocytopenia. On 12/29/2018 serum creatinine was 1.2 Continue NS at 125 mls/hr, CXR was clear. CT of Abdomen showed- No hydronephrosis. Non-obstructing punctate bilateral nephrolithiasis Renal US shows CKD signs Anemia-transfuse as needed, Epogen ordered for ACD, check Iron panel, Check PTH for 2HPT from CKD No TOOL LAPPER HAND indication right now Renally dose medications Strict I&O's daily Obtain daily weights Continue to monitor renal function closely Subjective Date of service: 04/25/21 Principal diagnosis: ARF Interval history: Making urine, NAD. Objective - Exam Narrative Exam: General appearance: Present: no acute distress, well-nourished - EENT Eyes: Present: PERRL, EOM intact ENT: hearing intact, clear oral mucosa, dentition normal - Neck Neck: Present: supple, normal ROM - Respiratory Respiratory effort: normal Respiratory: bilateral: CTA - Cardiovascular Rhythm: regular Heart Sounds: Present: S1 & S2 - Extremities Extremities: no ischemia, pulses intact, pulses symmetrical, No edema, normal temperature, normal color, Full ROM Peripheral Pulses: within normal limits - Abdominal General gastrointestinal: soft, non-tender, non-distended, normal bowel sounds - Integumentary Integumentary: Present: clear, warm, dry - Psychiatric Psychiatric: appropriate mood/affect, intact judgment & insight, memory intact, cooperative - Neurologic Neurologic: CNII-XII intact, moves all extremities - Allied Health Allied health notes reviewed: nursing - Vital Signs Vital signs: Vital Signs - 12hr 04/24/21 04/25/21 23:57 08:14 O2 Sat by Pulse 98 98 Oximetry - Lab 04/24/21 14:28 04/25/21 06:57 Most recent lab results Calcium 8.5 mg/dL (8.4-10.2) 04/25/21 06:57 Phosphorus 4.70 mg/dL (2.5-4.5) H D 04/25/21 06:57 Magnesium 1.50 mg/dL (1.7-2.3) L 04/23/21 05:45 Urine Creatinine 44.3 mg/dL (0.1-20.0) H 04/24/21 04:00 Urine Sodium 10 mmol/L 04/21/21 18:45 Urine Total Protein 186 mg/dL (5-11.8) H 04/21/21 18:45 Medications & Allergies - Medications Allergies/Adverse Reactions: Allergies No Known Allergies Allergy (Verified 04/20/21 08:43) Home Medications: Home Medications Medication Instructions Recorded Confirmed Last Taken Type Multivit-Min/Folic/Vit K/Lycop 1 tab PO QDAY 04/21/21 04/21/21 3 Days Ago History [Men's Multivitamin Tablet] ~04/18/21 Active Medications: Generic Name Dose Route Start Last Admin Trade Name Freq PRN Reason Stop Dose Admin Acetaminophen 650 mg 04/20/21 15:00 04/25/21 09:40 Acetaminophen 325 Mg Tab PO 650 mg Q4H PRN Administration Pain MILD(1-3)/Fever >100.5/LANG[place] Heparin Sodium (Porcine) 5,000 unit 04/21/21 09:00 04/25/21 09:42 Heparin 5,000 Unit/1 Ml Vial SUB-Q Not Given Q8H SANTOS Sodium Chloride 1,000 mls @ 125 mls/hr 04/24/21 15:15 04/25/21 05:45 Nacl 0.9% 1000 Ml IV 125 mls/hr DIRECT SANTOS Administration Ondansetron HCl 8 mg 04/23/21 13:00 04/24/21 23:55 Ondansetron 8 Mg Odt Tab PO 8 mg Q8H PRN Administration Nausea And Vomiting Sodium Chloride 10 ml 04/20/21 22:00 04/25/21 09:43 Sodium Chloride 0.9% 10 Ml Flush Syringe IV 10 ml BID SANTOS Administration Sodium Chloride 10 ml 04/20/21 15:00 Sodium Chloride 0.9% 10 Ml Flush Syringe IV PRN PRN LINE FLUSH Sodium Chloride 10 ml 04/20/21 15:00 Sodium Chloride 0.9% 50 Ml Ivpb IV PRN PRN FLUSH
[2021-04-25] MEDS: ONDANSETRON 8 MG ODT TAB PO PRN ×2 (11:25→21:45)
--- NOTE | 2021-04-25 15:02 | Ultrasound Report ---
ULTRASOUND RENAL INDICATION: CKD COMPARISON: CT abdomen and pelvis 04/20/2021. FINDINGS: RIGHT KIDNEY: Size: 11.4 cm. Echogenicity: Increased. Cortical thickness: Normal. Stones: None. Hydronephrosis: None. Cyst or mass: None. LEFT KIDNEY: Size: 11.6 cm. Echogenicity: Increased. Cortical thickness: Normal. Stones: None. Hydronephrosis: None. Cyst or mass: None. Urinary Bladder: No significant abnormality. Free Fluid: None. Additional Findings: None. IMPRESSION: No acute sonographic abnormality of the kidneys. Increased echogenicity of the cortex zachary aterally as can be seen with medical renal disease. Signer Name: Terry Jackson MD Signed: 04/25/2021 2:58 PM Workstation Name: [id number]
[2021-04-25] MEDS ORDERED: EPOETIN ALFA-EPBX 20,000 UNIT/1 ML VIAL SUB-Q ONE (15:56)
[2021-04-25 19:45] LABS: Iron 10 ug/dL (49-181); Total Iron Binding Capacity 105 mcg/dL (250-450)
[2021-04-25 19:49] LABS: Hepatitis B Surface Antigen Non-Reactive (Negative); Hepatitis C Virus Antibody Non-Reactive (NonReactive)
[2021-04-26] MEDS: HEPARIN 5,000 UNIT/1 ML VIAL SUB-Q SCH ×3 (03:19→17:00)
[2021-04-26] MEDS: ACETAMINOPHEN 325 MG TAB PO PRN ×5 (05:22→22:45)
[2021-04-26] MEDS: ONDANSETRON 8 MG ODT TAB PO PRN (05:22)
[2021-04-26 10:29] LABS: Calcium 8.4 mg/dL (8.4-10.2)
[2021-04-26 10:39] LABS: Hematocrit 20.3 % (35.5-45.6); Hemoglobin 6.5 gm/dl (11.8-15.2); Mean Corpuscular HGB Conc 32 % (32-34); Mean Corpuscular Volume 95 fl (84-94); Platelet Count 200 K/mm3 (140-440); Red Blood Count 2.15 M/mm3 (3.65-5.03); Red Cell Distribution Width 12.7 % (13.2-15.2)
--- NOTE | 2021-04-26 11:45 | Progress Note ---
Assessment and Plan Acute kidney injury, likely prerenal azotemia, possible CKD Hyperkalemia Covid 19 Anemia Diarrhea weight loss Plan: Cr and BUn cont to fluctuate, good UOP 24 hours urine Cr clearance~16 ml/min Has 2.77 grams protein, likely has CKD, check secondary neph w/u with CHANDNI, C3/C4, Anti-DsDNA, SPEP, UPEP, Serum IFx, Hep panel, HIV. Ordered LDH and periperal smear, smear -ve for shistocytes, no thrombocytopenia, HIV ab +ve remains to have refractory anemia, not a candidate for kidney biopsy. On 12/29/2018 serum creatinine was 1.[address] of Abdomen showed- No hydronephrosis. 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 Renally dose medications Strict I&O's daily Obtain daily weights Continue to monitor renal function closely Subjective Date of service: 04/26/21 Principal diagnosis: ARF Interval history: On isolation for COVID-19 infection, no overnight events Objective - Vital Signs Vital signs: Vital Signs - 12hr 04/26/21 05:22 Respiratory 18 Rate - Lab 04/26/21 09:35 04/26/21 09:35 Most recent lab results Calcium 8.4 mg/dL (8.4-10.2) 04/26/21 09:35 Phosphorus 3.80 mg/dL (2.5-4.5) 04/26/21 09:35 Magnesium 1.50 mg/dL (1.7-2.3) L 04/23/21 05:45 Urine Creatinine 44.3 mg/dL (0.1-20.0) H 04/24/21 04:00 Urine Sodium 10 mmol/L 04/21/21 18:45 Urine Total Protein 186 mg/dL (5-11.8) H 04/21/21 18:45 Medications & Allergies - Medications Allergies/Adverse Reactions: Allergies No Known Allergies Allergy (Verified 04/20/21 08:43) Home Medications: Home Medications Medication Instructions Recorded Confirmed Last Taken Type Multivit-Min/Folic/Vit K/Lycop 1 tab PO QDAY 04/21/21 04/21/21 3 Days Ago History [Men's Multivitamin Tablet] ~04/18/21 Active Medications: Generic Name Dose Route Start Last Admin Trade Name Honorio PRN Reason Stop Dose Admin Acetaminophen 650 mg 04/20/21 15:00 04/26/21 10:13 Acetaminophen 325 Mg Tab PO 650 mg Q4H PRN Administration Pain MILD(1-3)/Fever >100.5/LANG[place] Heparin Sodium (Porcine) 5,000 unit 04/21/21 09:00 04/26/21 09:06 Heparin 5,000 Unit/1 Ml Vial SUB-Q Not Given Q8H SANTOS Sodium Chloride 1,000 mls @ 125 mls/hr 04/24/21 15:15 04/25/21 05:45 Nacl 0.9% 1000 Ml IV 125 mls/hr DIRECT SANTOS Administration Ondansetron HCl 8 mg 04/23/21 13:00 04/26/21 05:22 Ondansetron 8 Mg Odt Tab PO 8 mg Q8H PRN Administration Nausea And Vomiting Sodium Chloride 10 ml 04/20/21 22:00 04/26/21 10:14 Sodium Chloride 0.9% 10 Ml Flush Syringe IV 10 ml BID SANTOS Administration Sodium Chloride 10 ml 04/20/21 15:00 Sodium Chloride 0.9% 10 Ml Flush Syringe IV PRN PRN LINE FLUSH Sodium Chloride 10 ml 04/20/21 15:00 Sodium Chloride 0.9% 50 Ml Ivpb IV PRN PRN FLUSH
[2021-04-26 11:55] LABS: Basophils % (Manual) 0 % (0.0-1.8); Eosinophils % (Manual) 0 % (0.0-4.3); Platelet Estimate Consistent w Auto; Schistocytes Few; Total Cells Counted 100
[2021-04-26] MEDS: DIPHENOXYLATE/ATROPINE TAB PO PRN (18:21)
[2021-04-26] MEDS: SODIUM CHLORIDE 0.9% 50 ML IVPB IV PRN (21:14)
--- NOTE | 2021-04-27 00:55 | Progress Note ---
Assessment and Plan #Acute gastroenteritisimproving Etiology is currently unclear; however, might be secondary to uremia versus COVID-19 infection Pending stool cultures and C. difficile PCR Ordering HIV to rule out possible immunocompromise state Continue with Zofran and IV fluids #BILLIE versus CKD stage IV No improvement of creatinine, ultrasound findings suggestive of CKD Urine osmolality 317, urine sodium 10, urine potassium 1, urine chloride 10, urine total protein 186 Aggressive IV fluid resuscitation to improve creatinine Nephrology consulted; appreciate recs Renally dose medications and avoid nephrotoxic meds Continue to monitor #Hyponatremia Sodium 122, improving to 134 today Secondary to aggressive IV fluid resuscitation. Discontinued IV fluids. Patient placed on fluid restriction. continue to improve with fluid restriction. Continue to monitor. #COVID-19 infection Positive coronavirus PCR Placing on contact and droplet precautions. [facility] Patient is not hypoxic or hypotensive; therefore, patient does not require steroids or remdesivir at this time. Continue to monitor. #Hyperkalemiaresolved Potassium 4.5 Status post medical management of hyperkalemia in the ED. Likely secondary to renal failure Continue to monitor #Elevated blood pressure Patient denies having history of hypertension; however, patient also admits to last seeing a physician approximately 19 years ago We will initiate antihypertensives if blood pressure continues to remain chron ically elevated Continue to monitor #Dehydration Currently treating with IV fluids Continue to monitor #Iron deficiency anemia #Transfusion reaction Hemoglobin 6.6 (unknown baseline). Patient underwent transfusion reactions to include fever of greater than 101 during transfusion of blood. Transfusion was stopped immediately. Posttransfusion type and screen was ordered. Patient remained hemodynamically stable with no additional complaints. Patient has no history of prior transfusion reaction; however, patient has never had transfusion of blood products before. Denies melena or hematochezia or hematemesis Likely secondary to chronic renal disease (anemia chronic disease) Iron studies revealing: Iron 15, TIBC 139, transferrin 121 Status post IV iron repletion x1day. Continue to monitor #Advanced care planning -Disease education conducted, care plan discussed, diagnoses discussed, prognosis discussed, and patient acknowledges understanding with care plan -Time: +30 min #Discharge planning -Will be discharged when renal function gets stabilized and cleared by nephrology Disposition Plan: Continue medical management History Interval history: Patient is rude and uncooperative with the nursing staff. He does not give accurate account of BMs. Per patient, he had 2 beers today and he is avoiding eating to avoid diarrhea. Patient complains of nausea but no vomiting. No body swelling. Hemodynamically stable. Creatinine not much improved. - Patient Problems (1) Acute gastroenteritis Current Visit: Yes Status: Deleted Plan to address problem: Etiology unclear Possible uremia Stool cultures and rule out C. difficile IV Zofran and IV fluids for now There is a danger going into volume overload if there is no urine output (2) BILLIE (acute kidney injury) Current Visit: Yes Status: Deleted Plan to address problem: IV fluids for now Possible ATN Possible underlying chronic kidney disease Nephrology consulted (3) Hypertension Current Visit: Yes Status: Deleted Plan to address problem: Borderline high Will initiate blood pressure medications if persistently high (4) Dehydration Current Visit: Yes Status: Deleted Plan to address problem: IV fluids for now (5) Anemia Current Visit: Yes Status: Deleted Qualifiers: Anemia type: unspecified type Qualified Code(s): D64.9 - Anemia, unsp ecified Plan to address problem: Possibly secondary to chronic kidney disease Anemia work-up (6) DVT prophylaxis Current Visit: Yes Status: Deleted Plan to address problem: 1 heparin and GI prophylaxis (7) Advance care planning Current Visit: Yes Status: Deleted Plan to address problem: Disease education collected, care plan discussed, diagnosis discussed, prognosis discussed,. Patient is full code. Patient acknowledged understanding and in agreement with care plan. +30 minutes Subjective Date of service: 04/26/21 Principal diagnosis: ARF Interval history: Assessment and Plan Assessment and plan: 40-year-old -Ivorian male with no significant past medical history and no known chronic kidney disease comes in for persistent vomiting and diarrhea and weight loss for last 2 weeks. Patient says he lost about 40 pounds unintent ionally since last 2 weeks. Patient has been having 4-5 episodes of vomiting per day and 4-5 episodes of loose stools per day. No abdominal pain. No recent travel. No fever or chills. In the emergency room patient's BUN/creatinine was high at 54/4.7. 04/26/2021 Worsening BUN/creatinine No improvement Objective - Constitutional Vitals: Vital Signs - 12hr 04/26/21 04/26/21 04/26/21 16:38 20:00 22:40 Temperature 99.0 F 98.9 F Pulse Rate 98 H 87 Respiratory 20 20 Rate Blood Pressure 198/108 135/88 O2 Sat by Pulse 83 L 94 91 Oximetry General appearance: Present: no acute distress, well-nourished - EENT Eyes: PERRL, EOM intact ENT: hearing intact, clear oral mucosa Ears: bilateral: normal - Neck Neck: supple, normal ROM - Respiratory Respiratory effort: normal Respiratory: bilateral: CTA - Breasts Breasts: normal - Cardiovascular Heart rate: 78 Rhythm: regular Heart Sounds: Present: S1 & S2. Absent: gallop, rub Extremities: pulses intact, No edema, normal color, Full ROM - Gastrointestinal General gastrointestinal: Present: soft, non-tender, non-distended, normal bowel sounds - Genitourinary Male genitourinary: normal - Integumentary Integumentary: clear, warm, dry - Musculoskeletal Musculoskeletal: 1, strength equal bilaterally - Neurologic Neurologic: moves all extremities - Psychiatric Psychiatric: memory intact, appropriate mood/affect, intact judgment & insight - Labs CBC & Chem 7: 04/27/21 07:30 04/27/21 07:30 Labs: Abnormal lab results 04/26/21 04/26/21 Range/Units 09:35 09:35 RBC 2.15 L (3.65-5.03) M/mm3 Hgb 6.5 L (11.8-15.2) gm/dl Hct 20.3 L (35.5-45.6) % MCV 95 H (84-94) fl RDW 12.7 L (13.2-15.2) % Seg Neuts % (Manual) 93.0 H (40.0-70.0) % Lymphocytes % (Manual) 4.0 L (13.4-35.0) % Lymphocytes # (Manual) 0.2 L (1.2-5.4) K/mm3 Sodium 133 L (137-145) mmol/L Carbon Dioxide 18 L (22-30) mmol/L BUN 54 H (9-20) mg/dL Creatinine 5.8 H (0.8-1.3) mg/dL Glucose 202 H (75-100) mg/dL Total Creatine Kinase 53 L (55-170) units/L HEART Score - HEART Score Troponin: Troponin T < 0.010 ng/mL (0.00-0.029) 04/20/21 10:46
[2021-04-27] MEDS: HEPARIN 5,000 UNIT/1 ML VIAL SUB-Q SCH ×3 (02:53→17:05)
[2021-04-27 07:54] LABS: Hematocrit 21.1 % (35.5-45.6); Mean Corpuscular HGB Conc 33 % (32-34); Mean Corpuscular Volume 95 fl (84-94); Platelet Count 217 K/mm3 (140-440); Red Blood Count 2.23 M/mm3 (3.65-5.03); Red Cell Distribution Width 12.8 % (13.2-15.2)
[2021-04-27 08:14] LABS: Calcium 8.6 mg/dL (8.4-10.2)
--- NOTE | 2021-04-27 08:20 | Progress Note ---
Assessment and Plan Acute kidney injury, likely prerenal azotemia, possible CKD Hyperkalemia Covid 19 Anemia Diarrhea weight loss Plan: Cr and BUn cont to fluctuate, no reordered UOP no indication for DERMATOLOGICAL SURGEON today, but will likely need to be initiated by tomorrow if rising Cr or BUN 24 hours urine Cr clearance~16 ml/min Has 2.77 grams protein, likely has CKD, check secondary neph w/u with CHANDNI, C3/C4, Anti-DsDNA, SPEP, UPEP, Serum IFx, Hep panel, HIV. Ordered LDH and periperal smear, smear -ve for shistocytes, no thrombocytopenia, HIV ab +ve remains to have refractory anemia, not a candidate for kidney biopsy. On 12/29/2018 serum creatinine was 1.[address] of Abdomen showed- No hydronephrosis. Non-obstructing punctate bilateral nephrolithiasis Renal US shows CKD signs Anemia-transfuse as needed, Epogen ordered for ACD, check Iron panel No DERMATOLOGICAL SURGEON indication right now Renally dose medications Strict I&O's daily Obtain daily weights Continue to monitor renal function closely Subjective Date of service: 04/27/21 Principal diagnosis: ARF Interval history: On isolation for COVID-19 infection, no overnight events Objective - Vital Signs Vital signs: Vital Signs - 12hr 04/26/21 04/27/21 22:40 04:40 Temperature 98.9 F 99.9 F H Pulse Rate 87 84 Respiratory 20 18 Rate Blood Pressure 135/88 148/93 O2 Sat by Pulse 91 92 Oximetry - Lab 04/27/21 07:30 04/27/21 07:30 Most recent lab results Calcium 8.6 mg/dL (8.4-10.2) 04/27/21 07:30 Phosphorus 4.10 mg/dL (2.5-4.5) 04/27/21 07:30 Magnesium 1.50 mg/dL (1.7-2.3) L 04/23/21 05:45 Urine Creatinine 44.3 mg/dL (0.1-20.0) H 04/24/21 04:00 Urine Sodium 10 mmol/L 04/21/21 18:45 Urine Total Protein 186 mg/dL (5-11.8) H 04/21/21 18:45 Medications & Allergies - Medications Allergies/Adverse Reactions: Allergies No Known Allergies Allergy (Verified 04/20/21 08:43) Home Medications: Home Medications Medication Instructions Recorded Confirmed Last Taken Type Multivit-Min/Folic/Vit K/Lycop 1 tab PO QDAY 04/21/21 04/21/21 3 Days Ago History [Men's Multivitamin Tablet] ~04/18/21 Active Medications: Generic Name Dose Route Start Last Admin Trade Name Isaíasq PRN Reason Stop Dose Admin Acetaminophen 650 mg 04/20/21 15:00 04/26/21 22:45 Acetaminophen 325 Mg Tab PO 650 mg Q4H PRN Administration Pain MILD(1-3)/Fever >100.5/LANGLEY Diphenoxylate HCl/Atropine 1 tab 04/26/21 17:11 04/26/21 18:21 Diphenoxylate/Atropine Tab PO 1 tab Q6H PRN Administration Diarrhea Heparin Sodium (Porcine) 5,000 unit 04/21/21 09:00 04/27/21 02:53 Heparin 5,000 Unit/1 Ml Vial SUB-Q 5,000 unit Q8H SANTOS Administration Ondansetron HCl 8 mg 04/23/21 13:00 04/26/21 05:22 Ondansetron 8 Mg Odt Tab PO 8 mg Q8H PRN Administration Nausea And Vomiting Ondansetron HCl 4 mg 04/26/21 17:54 Ondansetron 4 Mg/2 Ml Inj IV Q8H PRN Nausea Sodium Chloride 10 ml 04/20/21 22:00 04/26/21 21:15 Sodium Chloride 0.9% 10 Ml Flush Syringe IV Not Given BID SANTOS Sodium Chloride 10 ml 04/20/21 15:00 Sodium Chloride 0.9% 10 Ml Flush Syringe IV PRN PRN LINE FLUSH Sodium Chloride 10 ml 04/20/21 15:00 04/26/21 21:14 Sodium Chloride 0.9% 50 Ml Ivpb IV 10 ml PRN PRN Administration FLUSH
[2021-04-27] MEDS: ACETAMINOPHEN 325 MG TAB PO PRN ×3 (10:31→19:15)
[2021-04-27] MEDS: ONDANSETRON 4 MG/2 ML INJ IV PRN (19:16)
[2021-04-27] MEDS: DIPHENOXYLATE/ATROPINE TAB PO PRN (19:16)
[2021-04-27] MEDS: SODIUM CHLORIDE 0.9% 50 ML IVPB IV PRN (23:19)
[2021-04-28] MEDS: HEPARIN 5,000 UNIT/1 ML VIAL SUB-Q SCH ×4 (00:15→17:00)
[2021-04-28] MEDS: ACETAMINOPHEN 325 MG TAB PO PRN ×3 (00:15→20:39)
--- NOTE | 2021-04-28 07:23 | Progress Note ---
Assessment and Plan #BILLIE versus CKD stage IV No improvement of creatinine, ultrasound findings suggestive of CKD Urine osmolality 317, urine sodium 10, urine potassium 1, urine chloride 10, urine total protein 186 Aggressive IV fluid resuscitation to improve creatinine Nephrology consulted; appreciate recs Renally dose medications and avoid nephrotoxic meds Continue to monitor Possible end-stage renal disease needing hemodialysis Discussed with Dr. Al #Acute gastroenteritisimproving Etiology is currently unclear; however, might be secondary to uremia versus COVID-19 infection Pending stool cultures and C. difficile PCR Ordering HIV to rule out possible immunocompromise state Continue with Zofran and IV fluids HIV positive ID consulted #Hyponatremia Sodium 122, improving to 134 today Secondary to aggressive IV fluid resuscitation. Discontinued IV fluids. Patient placed on fluid restriction. continue to improve with fluid restriction. Continue to monitor. #COVID-19 infection Positive coronavirus PCR Placing on contact and droplet precautions. Transferring to Covid floor. Patient is not hypoxic or hypotensive; therefore, patient does not require steroids or remdesivir at this time. Continue to monitor. #Hyperkalemiaresolved Potassium 4.5 Status post medical management of hyperkalemia in the ED. Likely secondary to renal failure Continue to monitor #Elevated blood pressure Patient denies having history of hypertension; however, patient also admits to last seeing a physician approximately 19 years ago We will initiate antihypertensives if blood pressure continues to remain chronically elevated Continue to monitor #Dehydration Currently treating with IV fluids Continue to monitor #Iron deficiency anemia #Transfusion reaction Hemoglobin 6.6 (unknown baseline). Patient underwent transfusion reactions to include fever of greater than 101 during transfusion of blood. Transfusion was stopped immediately. Posttransfusion type and screen was ordered. Patient remained hemodynamically stable with no additional complaints. Patient has no history of prior transfusion reaction; however, patient has never had transfusion of blood products before. Denies melena or hematochezia or hematemesis Likely secondary to chronic renal disease (anemia chronic disease) Iron studies revealing: Iron 15, TIBC 139, transferrin 121 Status post IV iron repletion x1day. Continue to monitor #Advanced care planning -Disease education conducted, care plan discussed, diagnoses discussed, prognosis discussed, and patient acknowledges understanding with care plan -Time: +30 min #Discharge planning -Will be discharged when renal function gets stabilized and cleared by nephrology Disposition Plan: Continue medical management Subjective Date of service: 04/27/21 Principal diagnosis: ARF Interval history: Assessment and Plan Assessment and plan: 40-year-old -Palest[place] male with no significant past medical history and no known chronic kidney disease comes in for persistent vomiting and diarrhea and weight loss for last 2 weeks. Patient says he lost about 40 pounds unintentionally since last 2 weeks. Patient has been having 4-5 episodes of vomiting per day and 4-5 episodes of loose stools per day. No abdominal pain. No recent travel. No fever or chills. In the emergency room patient's BUN/creatinine was high at 54/4.7. 04/27/2021 BUN/creatinine worsening BUN and creatinine 54/5.8 yesterday today BUN/creatinine is 60/6.[address] Bergeron Patient may end up needing hemodialysis HIV positive yesterday ID consulted GI also consulted because of the persistent anemia which is not explained by the chronic kidney disease Objective - Constitutional Vitals: Vital Signs - 12hr 04/27/21 04/27/21 04/28/21 20:00 22:53 05:05 Temperature 98.3 F 98.3 F Pulse Rate 95 H 91 H Respiratory 20 20 Rate Blood Pressure 155/99 135/100 O2 Sat by Pulse 96 90 94 Oximetry General appearance: Present: no acute distress, well-nourished - EENT Eyes: PERRL, EOM intact ENT: hearing intact, clear oral mucosa Ears: bilateral: normal - Neck Neck: supple, normal ROM - Respiratory Respiratory effort: normal Respiratory: bilateral: CTA - Breasts Breasts: normal - Cardiovascular Heart rate: 78 Rhythm: regular Heart Sounds: Present: S1 & S2. Absent: gallop, rub Extremities: pulses intact, No edema, normal color, Full ROM - Gastrointestinal General gastrointestinal: Present: soft, non-tender, non-distended, normal bowel sounds - Genitourinary Male genitourinary: normal - Integumentary Integumentary: clear, warm, dry - Musculoskeletal Musculoskeletal: 1, strength equal bilaterally - Neurologic Neurologic: moves all extremities - Psychiatric Psychiatric: memory intact, appropriate mood/affect, intact judgment & insight - Labs CBC & Chem 7: 04/27/21 07:30 04/27/21 07:30 Labs: Abnormal lab results 04/27/21 04/27/21 Range/Units 07:30 07:30 RBC 2.23 L (3.65-5.03) M/mm3 Hgb 7.0 L (11.8-15.2) gm/dl Hct 21.1 L (35.5-45.6) % MCV 95 H (84-94) fl RDW 12.8 L (13.2-15.2) % Sodium 132 L (137-145) mmol/L Carbon Dioxide 20 L (22-30) mmol/L BUN 60 H (9-20) mg/dL Creatinine 6.1 H (0.8-1.3) mg/dL HEART Score - HEART Score Troponin: Troponin T < 0.010 ng/mL (0.00-0.029) 04/20/21 10:46
--- NOTE | 2021-04-28 07:45 | Gastroenterology Consultation ---
History of Present Illness - Reason for Consult Consult date: 04/28/21 n/v Requesting physician: REKHA HUNT - History of Present Illness 40-year-old -Bangladeshi male with no significant past medical history and no known chronic kidney disease comes in for persistent vomiting and diarrhea and weight loss for last 2 weeks. Patient says he lost about 40 pounds unintentionally since last 2 weeks. Patient has been having 4-5 episodes of vomiting per day and 4-5 episodes of loose stools per day. No abdominal pain. No recent travel. No fever or chills. In the emergency room patient's BUN/creatinine was high at 54/4.7. COVID and HIV positive on testing -Past medical history none -past surgical history none - Social History Smoking Status: Current Some Day Smoker Substance Use Type: Marijuana -family history -- Htn Obtained/updated/reviewed patient's current medications Medications and Allergies Allergies Allergy/AdvReac Type Severity Reaction Status Date / Time No Known Allergies Allergy Verified 04/20/21 08:43 Home Medications Medication Instructions Recorded Confirmed Last Taken Type Multivit-Min/Folic/Vit K/Lycop 1 tab PO QDAY 04/21/21 04/21/21 3 Days Ago History [Men's Multivitamin Tablet] ~04/18/21 Active Meds: Active Medications Acetaminophen (Acetaminophen 325 Mg Tab) 650 mg PO Q4H PRN PRN Reason: Pain MILD(1-3)/Fever >100.5/LANGLEY Last Admin: 04/28/21 00:15 Dose: 650 mg Diphenoxylate HCl/Atropine (Diphenoxylate/Atropine Tab) 1 tab PO Q6H PRN PRN Reason: Diarrhea Last Admin: 04/27/21 19:16 Dose: 1 tab Heparin Sodium (Porcine) (Heparin 5,000 Unit/1 Ml Vial) 5,000 unit SUB-Q Q8H SANTOS Last Admin: 04/28/21 00:15 Dose: 5,000 unit Ondansetron HCl (Ondansetron 4 Mg/2 Ml Inj) 4 mg IV Q8H PRN PRN Reason: Nausea Last Admin: 04/27/21 19:16 Dose: 4 mg Sodium Chloride (Sodium Chloride 0.9% 10 Ml Flush Syringe) 10 ml IV BID SANTOS Last Admin: 04/27/21 23:19 Dose: Not Given Sodium Chloride (Sodium Chloride 0.9% 10 Ml Flush Syringe) 10 ml IV PRN PRN PRN Reason: LINE FLUSH Sodium Chloride (Sodium Chloride 0.9% 50 Ml Ivpb) 10 ml IV PRN PRN PRN Reason: FLUSH Last Admin: 04/27/21 23:19 Dose: 10 ml Review of Systems - Review of Systems All systems: negative (10 systems reviewed and neg other than hpi) Exam - Constitutional Vital Signs: Temp Pulse Resp BP Pulse Ox 98.3 F 91 H 20 135/100 94 04/28/21 05:05 04/28/21 05:05 04/28/21 05:05 04/28/21 05:05 04/28/21 05:05 General appearance: no acute distress - EENT Eyes: EOM intact - Respiratory Respiratory effort: normal - Cardiovascular Rhythm: regular - Gastrointestinal General gastrointestinal: Present: soft, non-tender - Integumentary Integumentary: Present: dry - Neurologic Neurological: alert and oriented x3 - Psychiatric Psychiatric: appropriate mood/affect - Labs CBC & Chem 7: 04/28/21 15:21 04/28/21 06:56 Lab Results: Laboratory Results - last 24 hr 04/27/21 04/27/21 07:30 07:30 WBC 5.2 RBC 2.23 L Hgb 7.0 L Hct 21.1 L MCV 95 H MCH 32 MCHC 33 RDW 12.8 L Plt Count 217 Sodium 132 L Potassium 4.5 Chloride 98.3 Carbon Dioxide 20 L Anion Gap 18 BUN 60 H Creatinine 6.1 H Estimated GFR 12 BUN/Creatinine Ratio 10 Glucose 81 Calcium 8.6 Phosphorus 4.10 Assessment and Plan Patient reports symptoms gradually improving, likely related to his coronavirus infection Patient does require further evaluation for severe anemia however given new diagnosis of HIV as well as current coronavirus infection and lack of any overt bleeding the risks of endoscopic inventions outweighs the benefits Therefore recommend supportive care and iron supplementation and patient follow- up with an outpatient with us for EGD colonoscopy for further evaluation of the anemia GI will sign off please call us back we can be of any further assistance - Patient Problems (1) Anemia Current Visit: Yes Status: Acute Qualifiers: Anemia type: unspecified type Qualified Code(s): D64.9 - Anemia, unspecified (2) Nausea & vomiting Current Visit: Yes Status: Acute Qualifiers: Vomiting type: unspecified Qualified Code(s): R11.2 - Nausea with vomiting, unspecified
[2021-04-28 08:07] LABS: Calcium 8.6 mg/dL (8.4-10.2)
--- NOTE | 2021-04-28 09:38 | Progress Note ---
Assessment and Plan Assessment and Plan Acute kidney injury, likely prerenal azotemia, possible CKD Hyperkalemia Covid 19 Anemia Diarrhea weight loss Plan: Cr trending down, making more urine, no MOTOR ADJUSTER indication today. Ordered 24 hours urine Cr clearance Has 2.77 grams protein, likely has CKD, ordered secondary neph w/u with CHANDNI, C3/C4, Anti-DsDNA, SPEP, UPEP, Serum IFx, Hep panel, HIV. C3/C4, Hep panel -ve. HIV AB +ve. Ordered LDH and periperal smear, smear -ve for shistocytes, no thrombocytopenia. On 12/29/2018 serum creatinine was 1.2 s/p NS hydration. CT of Abdomen showed- No hydronephrosis. Non-obstructing punctate bilateral nephrolithiasis Renal US shows CKD signs Anemia-transfuse as needed, Epogen ordered for ACD, start IV iron as iron sats low, monitor CBC. Ordered PTH for 2HPT from CKD, came back low. No MOTOR ADJUSTER indication right now Renally dose medications Strict I&O's daily Obtain daily weights Continue to monitor renal function closely Subjective Date of service: 04/28/21 Principal diagnosis: ARF Interval history: Making urine, NAD. Objective - Exam Narrative Exam: General appearance: Present: no acute distress, well-nourished - EENT Eyes: Present: PERRL, EOM intact ENT: hearing intact, clear oral mucosa, dentition normal - Neck Neck: Present: supple, normal ROM - Respiratory Respiratory effort: normal Respiratory: bilateral: CTA - Cardiovascular Rhythm: regular Heart Sounds: Present: S1 & S2 - Extremities Extremities: no ischemia, pulses intact, pulses symmetrical, No edema, normal temperature, normal color, Full ROM Peripheral Pulses: within normal limits - Abdominal General gastrointestinal: soft, non-tender, non-distended, normal bowel sounds - Integumentary Integumentary: Present: clear, warm, dry - Psychiatric Psychiatric: appropriate mood/affect, intact judgment & insight, memory intact, cooperative - Neurologic Neurologic: CNII-XII intact, moves all extremities - Allied Health Allied health notes reviewed: nursing - Vital Signs Vital signs: Vital Signs - 12hr 04/27/21 04/28/21 22:53 05:05 Temperature 98.3 F 98.3 F Pulse Rate 95 H 91 H Respiratory 20 20 Rate Blood Pressure 155/99 135/100 O2 Sat by Pulse 90 94 Oximetry - Lab 04/27/21 07:30 04/28/21 06:56 Most recent lab results Calcium 8.6 mg/dL (8.4-10.2) 04/28/21 06:56 Phosphorus 4.70 mg/dL (2.5-4.5) H 04/28/21 06:56 Magnesium 1.50 mg/dL (1.7-2.3) L 04/23/21 05:45 Urine Creatinine 44.3 mg/dL (0.1-20.0) H 04/24/21 04:00 Urine Sodium 10 mmol/L 04/21/21 18:45 Urine Total Protein 186 mg/dL (5-11.8) H 04/21/21 18:45 Medications & Allergies - Medications Allergies/Adverse Reactions: Allergies No Known Allergies Allergy (Verified 04/20/21 08:43) Home Medications: Home Medications Medication Instructions Recorded Confirmed Last Taken Type Multivit-Min/Folic/Vit K/Lycop 1 tab PO QDAY 04/21/21 04/21/21 3 Days Ago History [Men's Multivitamin Tablet] ~04/18/21 Active Medications: Generic Name Dose Route Start Last Admin Trade Name Freq PRN Reason Stop Dose Admin Acetaminophen 650 mg 04/20/21 15:00 04/28/21 00:15 Acetaminophen 325 Mg Tab PO 650 mg Q4H PRN Administration Pain MILD(1-3)/Fever >100.5/LANG[place] Diphenoxylate HCl/Atropine 1 tab 04/26/21 17:11 04/27/21 19:16 Diphenoxylate/Atropine Tab PO 1 tab Q6H PRN Administration Diarrhea Heparin Sodium (Porcine) 5,000 unit 04/21/21 09:00 04/28/21 00:15 Heparin 5,000 Unit/1 Ml Vial SUB-Q 5,000 unit Q8H SANTOS Administration Ondansetron HCl 4 mg 04/26/21 17:54 04/27/21 19:16 Ondansetron 4 Mg/2 Ml Inj IV 4 mg Q8H PRN Administration Nausea Sodium Chloride 10 ml 04/20/21 22:00 04/27/21 23:19 Sodium Chloride 0.9% 10 Ml Flush Syringe IV Not Given BID SANTOS Sodium Chloride 10 ml 04/20/21 15:00 Sodium Chloride 0.9% 10 Ml Flush Syringe IV PRN PRN LINE FLUSH Sodium Chloride 10 ml 04/20/21 15:00 04/27/21 23:19 Sodium Chloride 0.9% 50 Ml Ivpb IV 10 ml PRN PRN Administration FLUSH
--- NOTE | 2021-04-28 09:57 | Progress Note ---
Assessment and Plan Assessment and plan: Acute kidney injury on CKD Hyperkalemia COVID-19 pneumonia. Asymptomatic on room air, not hypoxic HIV. Anemia Diarrhea Weight loss 04/28/2021. CT of abdomen revealed No hydronephrosis. Non-obstructing punctate bilateral nephrolithiasis. Renal ultrasound reveals signs of CKD. Transfuse PRBCs for hemoglobin less than 7.0. Patient is s/p 1 unit PRBCs. 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 Creatinine slightly improved today. Follow-up CHANDNI, C3/C4, Anti-DsDNA, SPEP, UPEP, Serum IFx, Hep panel. HIV antibody was positive. History Interval history: No new issues overnight. Hospitalist Physical - Constitutional Vitals: Temp Pulse Resp BP Pulse Ox 98.3 F 91 H 20 135/100 94 04/28/21 05:05 04/28/21 05:05 04/28/21 05:05 04/28/21 05:05 04/28/21 05:05 General appearance: Present: no acute distress, well-nourished - EENT Eyes: Present: PERRL, EOM intact ENT: hearing intact, clear oral mucosa, dentition normal - Neck Neck: Present: supple, normal ROM - Respiratory Respiratory effort: normal Respiratory: bilateral: CTA - Cardiovascular Rhythm: regular Heart Sounds: Present: S1 & S2. Absent: gallop, rub - Extremities Extremities: no ischemia, No edema, Full ROM - Abdominal General gastrointestinal: soft, non-tender, non-distended, normal bowel sounds - Integumentary Integumentary: Present: clear, warm, dry - Neurologic Neurologic: CNII-XII intact, moves all extremities HEART Score - HEART Score Troponin: Troponin T < 0.010 ng/mL (0.00-0.029) 04/20/21 10:46 Results - Labs CBC & Chem 7: 04/27/21 07:30 04/28/21 06:56 Labs: Laboratory Last Values WBC 5.2 K/mm3 (4.5-11.0) 04/27/21 07:30 RBC 2.23 M/mm3 (3.65-5.03) L 04/27/21 07:30 Hgb 7.0 gm/dl (11.8-15.2) L 04/27/21 07:30 Hct 21.1 % (35.5-45.6) L 04/27/21 07:30 MCV 95 fl (84-94) H 04/27/21 07:30 MCH 32 pg (28-32) 04/27/21 07:30 MCHC 33 % (32-34) 04/27/21 07:30 RDW 12.8 % (13.2-15.2) L 04/27/21 07:30 Plt Count 217 K/mm3 (140-440) 04/27/21 07:30 Lymph % (Auto) 10.7 % (13.4-35.0) L 04/24/21 14:28 [place] % (Auto) 7.6 % (0.0-7.3) H 04/24/21 14: Eos % (Auto) 0.2 % (0.0-4.3) 04/24/21 14: Baso % (Auto) 0.2 % (0.0-1.8) 04/24/21 14: Lymph # (Auto) 0.7 K/mm3 (1.2-5.4) L 04/24/21 14:28 [place] # (Auto) 0.5 K/mm3 (0.0-0.8) 04/24/21 14:28 Eos # (Auto) 0.0 K/mm3 (0.0-0.4) 04/24/21 14: Baso # (Auto) 0.0 K/mm3 (0.0-0.1) 04/24/21 14:28 Add Manual Diff Complete 04/26/21 09:35 Total Counted 100 04/26/21 09:35 Seg Neutrophils % 81.3 % (40.0-70.0) H 04/24/21 14:28 Seg Neuts % (Manual) 93.0 % (40.0-70.0) H 04/26/21 09:35 Band Neutrophils % 0 % 04/26/21 09:35 Lymphocytes % (Manual) 4.0 % (13.4-35.0) L 04/26/21 09:35 Reactive Lymphs % (Man) 0 % 04/26/21 09:35 Monocytes % (Manual) 3.0 % (0.0-7.3) 04/26/21 09:35 Eosinophils % (Manual) 0 % (0.0-4.3) 04/26/21 09:35 Basophils % (Manual) 0 % (0.0-1.8) 04/26/21 09:35 Metamyelocytes % 0 % 04/26/21 09:35 Myelocytes % 0 % 04/26/21 09:35 Promyelocytes % 0 % 04/26/21 09:35 Blast Cells % 0 % 04/26/21 09:35 Nucleated RBC % Not Reportable 04/26/21 09:35 Seg Neutrophils # 5.0 K/mm3 (1.8-7.7) 04/24/21 14:28 Seg Neutrophils # Man 4.5 K/mm3 (1.8-7.7) 04/26/21 09:35 Band Neutrophils # 0.0 K/mm3 04/26/21 09:35 Lymphocytes # (Manual) 0.2 K/mm3 (1.2-5.4) L 04/26/21 09:35 Abs React Lymphs (Man) 0.0 K/mm3 04/26/21 09:35 Monocytes # (Manual) 0.1 K/mm3 (0.0-0.8) 04/26/21 09:35 Eosinophils # (Manual) 0.0 K/mm3 (0.0-0.4) 04/26/21 09:35 Basophils # (Manual) 0.0 K/mm3 (0.0-0.1) 04/26/21 09:35 Metamyelocytes # 0.0 K/mm3 04/26/21 09:35 Myelocytes # 0.0 K/mm3 04/26/21 09:35 Promyelocytes # 0.0 K/mm3 04/26/21 09:35 Blast Cells # 0.0 K/mm3 04/26/21 09:35 WBC Morphology Not Reportable 04/26/21 09:35 Hypersegmented Neuts Not Reportable 04/26/21 09:35 Hyposegmented Neuts Not Reportable 04/26/21 09:35 Hypogranular Neuts Not Reportable 04/26/21 09:35 Smudge Cells Not Reportable 04/26/21 09:35 Toxic Granulation Not Reportable 04/26/21 09:35 Toxic Vacuolation Not Reportable 04/26/21 09:35 Dohle Bodies Not Reportable 04/26/21 09:35 Pelger-Huet Anomaly Not Reportable 04/26/21 09:35 Karishma Rods Not Reportable 04/26/21 09:35 Platelet Estimate Consistent w auto 04/26/21 09:35 Clumped Platelets Not Reportable 04/26/21 09:35 Plt Clumps, EDTA Not Reportable 04/26/21 09:35 Large Platelets Not Reportable 04/26/21 09:35 Giant Platelets Not Reportable 04/26/21 09:35 Platelet Satelliting Not Reportable 04/26/21 09:35 Plt Morphology Comment Not Reportable 04/26/21 09:35 RBC Morphology Not Reportable 04/26/21 09:35 Dimorphic RBCs Not Reportable 04/26/21 09:35 Polychromasia Not Reportable 04/26/21 09:35 Hypochromasia Not Reportable 04/26/21 09:35 Poikilocytosis Not Reportable 04/26/21 09:35 Anisocytosis Not Reportable 04/26/21 09:35 Microcytosis Not Reportable 04/26/21 09:35 Macrocytosis Not Reportable 04/26/21 09:35 Spherocytes Not Reportable 04/26/21 09:35 Pappenheimer Bodies Not Reportable 04/26/21 09:35 Sickle Cells Not Reportable 04/26/21 09:35 Target Cells Not Reportable 04/26/21 09:35 Tear Drop Cells Not Reportable 04/26/21 09:35 Ovalocytes Not Reportable 04/26/21 09:35 Helmet Cells Not Reportable 04/26/21 09:35 Bragg-Emison Bodies Not Reportable 04/26/21 09:35 [place] Rings Not Reportable 04/26/21 09:35 Bernarda Cells Not Reportable 04/26/21 09:35 Bite Cells Not Reportable 04/26/21 09:35 Crenated Cell Not Reportable 04/26/21 09:35 Elliptocytes Not Reportable 04/26/21 09:35 Acanthocytes (Spur) Not Reportable 04/26/21 09:35 Rouleaux Not Reportable 04/26/21 09:35 Hemoglobin C Crystals Not Reportable 04/26/21 09:35 Schistocytes Few 04/26/21 09:35 Malaria parasites Not Reportable 04/26/21 09:35 Angus Bodies Not Reportable 04/26/21 09:35 Hem Pathologist Commnt No 04/26/21 09:35 Sodium 134 mmol/L (137-145) L 04/28/21 06:56 Potassium 4.6 mmol/L (3.6-5.0) 04/28/21 06:56 Chloride 101.6 mmol/L (98-107) 04/28/21 06:56 Carbon Dioxide 21 mmol/L (22-30) L 04/28/21 06:56 Anion Gap 16 mmol/L 04/28/21 06:56 BUN 60 mg/dL (9-20) H 04/28/21 06:56 Creatinine 5.6 mg/dL (0.8-1.3) H 04/28/21 06:56 Estimated GFR 14 ml/min 04/28/21 06:56 BUN/Creatinine Ratio 11 % 04/28/21 06:56 Glucose 86 mg/dL (75-100) 04/28/21 06:56 POC Glucose 112 mg/dL (70-105) H 04/20/21 18:30 Calcium 8.6 mg/dL (8.4-10.2) 04/28/21 06:56 Phosphorus 4.70 mg/dL (2.5-4.5) H 04/28/21 06:56 Magnesium 1.50 mg/dL (1.7-2.3) L 04/23/21 05:45 Iron 10 ug/dL (49-181) L 04/25/21 19:01 TIBC 105 mcg/dL (250-450) L 04/25/21 19:01 % Saturation 10.79 % 04/21/21 12:35 Transferrin 121 mg/dl (180-329) L 04/21/21 12:35 Total Bilirubin < 0.20 mg/dL (0.1-1.2) 04/20/21 08:57 AST 30 units/L (5-40) 04/20/21 08:57 ALT 16 units/L (7-56) 04/20/21 08:57 Alkaline Phosphatase 61 units/L (35-129) 04/20/21 08:57 Lactate Dehydrogenase 544 units/L (91-180) H 04/22/21 Unknown Total Creatine Kinase 53 units/L (55-170) L 04/26/21 09:35 Troponin T < 0.010 ng/mL (0.00-0.029) 04/20/21 10:46 Total Protein 7.7 g/dL (6.3-8.2) 04/20/21 08:57 Albumin 3.0 g/dL (3.9-5) L 04/20/21 08:57 Albumin/Globulin Ratio 0.6 % 04/20/21 08:57 Lipase 36 units/L (13-60) 04/20/21 08:57 Vitamin B12 1198 pg/mL (211-911) H 04/21/21 12:35 RBC Folic Acid 843 ng/mL (>280) 04/21/21 12:35 TSH 3.120 mlU/mL (0.270-4.200) 04/20/21 10:46 PTH Intact 16.50 pg/mL (15-65) 04/25/21 19:01 Urine Color Straw (Yellow) 04/22/21 14:51 Urine Turbidity Clear (Clear) 04/22/21 14:51 Urine pH 9.0 (5.0-7.0) H 04/22/21 14:51 Ur Specific [place] 1.007 (1.003-1.030) 04/22/21 14:51 Urine Protein >500 mg/dL (Negative) 04/22/21 14:51 Urine Glucose (UA) Neg mg/dL (Negative) 04/22/21 14:51 Urine Ketones Neg mg/dL (Negative) 04/22/21 14:51 Urine Blood Neg (Negative) 04/22/21 14:51 Urine Nitrite Neg (Negative) 04/22/21 14:51 Urine Bilirubin Neg (Negative) 04/22/21 14:51 Urine Urobilinogen < 2.0 mg/dL (<2.0) 04/22/21 14:51 Ur Leukocyte Esterase Neg (Negative) 04/22/21 14:51 Urine WBC (Auto) 1.0 /HPF (0.0-6.0) 04/22/21 14:51 Urine RBC (Auto) 1.0 /HPF (0.0-6.0) 04/22/21 14:51 Urine Eosinophils None seen (None Seen) 04/21/21 18:45 Urine Osmolality 317 Mosm/kg 04/21/21 18:45 Urine Total Volume 2900 ml 04/24/21 04:00 Urine Creatinine 44.3 mg/dL (0.1-20.0) H 04/24/21 04:00 Ur Creatinine 24 Hour 1.3 (0.8-2.8) 04/24/21 04:00 Protein/Creatinin Ratio 2.77 04/21/21 18:45 Urine Sodium 10 mmol/L 04/21/21 18:45 Urine Potassium 1.00 mmol/L 04/21/21 18:45 Urine Chloride 10.0 mmolL (110-250) L 04/21/21 18:45 Urine Calcium < 0.8 mg/dL (6.8-21.3) L 04/21/21 18:45 Urine Total Protein 186 mg/dL (5-11.8) H 04/21/21 18:45 Syphilis IgG Antibody Nonreactive (NonReactive) 04/25/21 19:01 C. difficile Tox (PCR) Negative (Negative) 04/25/21 16:45 Coronavirus (PCR) Positive (Negative) A 04/24/21 Unknown Hepatitis A IgM Ab Non-reactive (NonReactive) 04/25/21 19:01 Hep Bs Antigen Non-reactive (Negative) 04/25/21 19:01 Hep B Core IgM Ab Non-reactive (NonReactive) 04/25/21 19:01 Hepatitis C Antibody Non-reactive (NonReactive) 04/25/21 19:01 HIV 1&2 Antibody Rapid Reactive (Non React) 04/25/21 19:01 HIV P24 Antigen Non react (Non React) 04/25/21 19:01 Schistocytes Smear None 04/22/21 Unknown Blood Type O POSITIVE 04/22/21 08:12 Antibody Screen Negative 04/22/21 08:12 Crossmatch See Detail 04/22/21 08:12 Krishnan/IV: Voiding Method Toilet Active Medications - Current Medications Current Medications: Generic Name Dose Route Start Last Admin Trade Name Freq PRN Reason Stop Dose Admin Acetaminophen 650 mg 04/20/21 15:00 04/28/21 00:15 Acetaminophen 325 Mg Tab PO 650 mg Q4H PRN Administration Pain MILD(1-3)/Fever >100.5/LANGLEY Diphenoxylate HCl/Atropine 1 tab 04/26/21 17:11 04/27/21 19:16 Diphenoxylate/Atropine Tab PO 1 tab Q6H PRN Administration Diarrhea Heparin Sodium (Porcine) 5,000 unit 04/21/21 09:00 04/28/21 00:15 Heparin 5,000 Unit/1 Ml Vial SUB-Q 5,000 unit Q8H SANTOS Administration Ondansetron HCl 4 mg 04/26/21 17:54 04/27/21 19:16 Ondansetron 4 Mg/2 Ml Inj IV 4 mg Q8H PRN Administration Nausea Sodium Chloride 10 ml 04/20/21 22:00 04/27/21 23:19 Sodium Chloride 0.9% 10 Ml Flush Syringe IV Not Given BID SANTOS Sodium Chloride 10 ml 04/20/21 15:00 Sodium Chloride 0.9% 10 Ml Flush Syringe IV PRN PRN LINE FLUSH Sodium Chloride 10 ml 04/20/21 15:00 04/27/21 23:19 Sodium Chloride 0.9% 50 Ml Ivpb IV 10 ml PRN PRN Administration FLUSH Nutrition/Malnutrition Assess - Dietary Evaluation Nutrition/Malnutrition Findings: Nutrition Notes Start: 04/21/21 14:23 Freq: Status: Active Protocol: Document 04/21/21 14:23 DALY (Rec: 04/21/21 14:41 DALY [id number]) Nutrition Notes 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 Current Diet Renal Diet (since D 04/20). Labs/Tests 04/21: K 5.1, BUN 53, Crea 5.0 . Pertinent Medications 04/21: nutritionally unremarkable. 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 Weight Status Underweight Subjective/Other Information RD consult for Low BMI assessment and risk of malnutrition. No reports available on Pt's PO intake of measls at the time. Pt shows no signs of concer for risk of malnutrition at the time according to Physical Assessment history notes. Anemia diagnosis is being trated with blood transfusion and body weight will be monitored daily. Pt's Low BMI seems to correspond to a natural body composition, and not related to a chronic malnutrition, since it was not mentioned in the Physical Assessment History or the Progress notes. Percent of energy/protein needs met: Prescribed Renal Diet provides for energy/protein needs (2, 072 Kcal/77 g) during LOS. Burn Absent Trauma Absent GI Symptoms Nausea,Vomiting,Diarrhea Food Allergy No Skin Integrity/Comment Clear, warm, dry. Minimum of two criteria No Nutrition Intervention Follow-Up By: 04/28/21 Additional Comments Continue monitoring food tolerance, %PO intake of meals , and BM.
[2021-04-28] MEDS ORDERED: EPOETIN ALFA-EPBX 20,000 UNIT/1 ML VIAL IV ONE (11:52)
[2021-04-28 12:08] LABS: ANA Screen, IFA Negative (Negative)
[2021-04-28] MEDS ORDERED: EPOETIN ALFA-EPBX 20,000 UNIT/1 ML VIAL IV PRN (13:00)
[2021-04-28] MEDS: SODIUM FERRIC GLUCON/SUCRO 125 MG in SODIUM CHLORIDE 0.9% 100 ML IV SCH (14:03)
[2021-04-28] MEDS ORDERED: EPOETIN ALFA-EPBX 20,000 UNIT/1 ML VIAL SUB-Q NR (15:00)
--- NOTE | 2021-04-28 16:14 | Consultation ---
History of Present Illness - Reason for Consult Consult date: 04/28/21 - History of Present Illness 40-year-old man past medical history of none presented to hospital complaining of 2 weeks of weakness, nausea, vomiting, diarrhea, unintended weight loss. He notes having lost 40 pounds in the last month or so, and complains of abdominal pain. During this admission he was diagnosed with HIV. He is unsure when he may have been infected, he denies any IVDU or recent sexual activity. Febrile during the admission to 100.5, white count 4.3 on admission, now normal. Covid is positive. HIV antibody was positive with negative P 24 antigen. C. difficile was negative. Syphilis negative. eGFR 14. Imaging personally reviewed: CT abdomen pelvis: No inflammatory process. Review of Systems: Bold if positive, otherwise negative General: fevers, chills, rigors HEENT: visual disturbance, diplopia, eye pain Respiratory: cough, sputum, hemoptysis, shortness of breath Cardiovascular: chest pain, syncope Gastrointestinal: nausea, vomiting, diarrhea, abdominal pain Genitourinary: dysuria, hematuria, flank pain Musculoskeletal: neck pain, back pain, joint pain, edema Neurologic: headaches, seizures Hematologic: easy bruising or bleeding Endocrine: night sweats, acute weight loss Skin: rash, jaundice, redness Psychiatric: suicidal, homicidal ideation Past History Past Medical History: HIV/AIDS Past Surgical History: No surgical history Social history: denies: IV drug use Family history: hypertension Medications and Allergies Allergies Allergy/AdvReac Type Severity Reaction Status Date / Time No Known Allergies Allergy Verified 04/20/21 08:43 Home Medications Medication Instructions Recorded Confirmed Last Taken Type Multivit-Min/Folic/Vit K/Lycop 1 tab PO QDAY 04/21/21 04/21/21 3 Days Ago History [Men's Multivitamin Tablet] ~04/18/21 Active Meds: Active Medications Acetaminophen (Acetaminophen 325 Mg Tab) 650 mg PO Q4H PRN PRN Reason: Pain MILD(1-3)/Fever >100.5/[place] Last Admin: 04/28/21 14:02 Dose: 650 mg Diphenoxylate HCl/Atropine (Diphenoxylate/Atropine Tab) 1 tab PO Q6H PRN PRN Reason: Diarrhea Last Admin: 04/27/21 19:16 Dose: 1 tab Epoetin Harris-epbx (Epoetin Harris-Epbx 20,000 Unit/1 Ml Vial) 20,000 unit SUB-Q ONCE@1500 NR Stop: 04/28/21 19:00 Heparin Sodium (Porcine) (Heparin 5,000 Unit/1 Ml Vial) 5,000 unit SUB-Q Q8H COUNT INCLUDES THE [facility] Last Admin: 04/28/21 14:03 Dose: Not Given Ferric Sodium Gluconate Complex 125 mg/ Sodium Chloride 110 mls @ 100 mls/hr IV DAILY COUNT INCLUDES THE [facility] Stop: 05/05/21 11:05 Last Admin: 04/28/21 14:03 Dose: 100 mls/hr Ondansetron HCl (Ondansetron 4 Mg/2 Ml Inj) 4 mg IV Q8H PRN PRN Reason: Nausea Last Admin: 04/27/21 19:16 Dose: 4 mg Sodium Chloride (Sodium Chloride 0.9% 10 Ml Flush Syringe) 10 ml IV BID SANTOS Last Admin: 04/28/21 14:03 Dose: 10 ml Sodium Chloride (Sodium Chloride 0.9% 10 Ml Flush Syringe) 10 ml IV PRN PRN PRN Reason: LINE FLUSH Sodium Chloride (Sodium Chloride 0.9% 50 Ml Ivpb) 10 ml IV PRN PRN PRN Reason: FLUSH Last Admin: 04/27/21 23:19 Dose: 10 ml Physical Examination - Physical Exam Narrative exam: Physical exam deferred to reduce risk of transmission of COVID-19. Please refer to primary team's note. - Constitutional Vitals: Vital Signs Temp Pulse Resp BP Pulse Ox 99.3 F 97 H 20 167/98 93 04/28/21 13:01 04/28/21 13:01 04/28/21 13:01 04/28/21 13:01 04/28/21 13:01 Temperature -Last 24 Hours Temperature 99.3 F Temperature 98.3 F Temperature 98.3 F Temperature 98.8 F Results - Labs CBC & Chem 7: 04/27/21 07:30 04/28/21 06:56 Labs: Abnormal lab results 04/28/21 Range/Units 06:56 Sodium 134 L (137-145) mmol/L Carbon Dioxide 21 L (22-30) mmol/L BUN 60 H (9-20) mg/dL Creatinine 5.6 H (0.8-1.3) mg/dL Phosphorus 4.70 H (2.5-4.5) mg/dL Assessment and Plan Cultures: HIV antibody positive A/P: 40-year-old man past medical history none presented to hospital with GI symptoms including unintentional weight loss. #New diagnosis HIV: Patient unsure when he may have been infected. Denies any IVDU or recent new sexual partners. Given his numerous GI symptoms, which may be attributable in part at least to HIV he may have been infected some time previously. Syphilis negative #Nausea/vomiting/diarrhea: In the setting of new onset renal failure with new diagnosis of HIV. No acute inflammation on CT abdomen pelvis. #COVID-19: No shortness of breath, on room air. No need for acute treatment. #BILLIE on CKD: Renally dose medications. Ultimate determination of need of HD will drive ART choice. #Unintentional weight loss: Secondary to HIV versus ?underlying malignancy Recs: -Check CD4 and viral load -As he is uninsured, would hold on initiating ART until he can obtain follow-up with [facility] [[email or web address]]. Patient lives in [place], discussed with him that closest clinic is [facility] [place] [facility] which can provide free follow- up and treatment. -No need for acute Covid treatment -Follow-up GI recommendations. -Follow-up ultimate decision on HD, as with HD he can tolerate a single tablet regimen, versus with decreased GFR with need intermittent dosing of ART. Thank you for the consult, we will continue to follow. MD Perico [facility] O: [phone] F: [phone]
[2021-04-28 16:16] LABS: Hematocrit 22.3 % (35.5-45.6); Hemoglobin 7.5 gm/dl (11.8-15.2); Mean Corpuscular HGB Conc 34 % (32-34); Mean Corpuscular Volume 93 fl (84-94); Platelet Count 270 K/mm3 (140-440); Red Blood Count 2.39 M/mm3 (3.65-5.03); Red Cell Distribution Width 13.1 % (13.2-15.2)
[2021-04-28 16:21] LABS: Eosinophils # (Auto) 0.1 K/mm3 (0.0-0.4); Monocytes # (Auto) 0.4 K/mm3 (0.0-0.8); Monocytes % (Auto) 5.8 % (0.0-7.3)
[2021-04-28 16:54] LABS: Basophils % (Manual) 0 % (0.0-1.8); Eosinophils % (Manual) 0 % (0.0-4.3); Total Cells Counted 100
[2021-04-28 16:55] LABS: Anisocytosis 1+
[2021-04-28 16:56] LABS: Large Platelets Few; Platelet Estimate Consistent w Auto; Toxic Granulation 1+
[2021-04-28] MEDS: DIPHENOXYLATE/ATROPINE TAB PO PRN (20:40)
[2021-04-28] MEDS: ONDANSETRON 4 MG/2 ML INJ IV PRN (20:40)
[2021-04-29] MEDS: ACETAMINOPHEN 325 MG TAB PO PRN ×3 (04:47→18:38)
[2021-04-29 05:54] LABS: Hematocrit 22.9 % (35.5-45.6); Hemoglobin 7.7 gm/dl (11.8-15.2); Mean Corpuscular HGB Conc 34 % (32-34); Mean Corpuscular Volume 94 fl (84-94); Platelet Count 315 K/mm3 (140-440); Red Blood Count 2.45 M/mm3 (3.65-5.03); Red Cell Distribution Width 12.8 % (13.2-15.2)
[2021-04-29 06:00] LABS: Calcium 8.9 mg/dL (8.4-10.2)
[2021-04-29 06:11] LABS: Gamma Globulin 1.8 g/dL (0.8-1.7)
[2021-04-29 06:57] LABS: Anisocytosis 1+; Basophils % (Manual) 0 % (0.0-1.8); Large Platelets Few; Platelet Estimate Consistent w Auto; Total Cells Counted 100
--- NOTE | 2021-04-29 09:06 | Progress Note ---
Assessment and Plan Assessment and plan: Acute kidney injury on CKD Hyperkalemia COVID-19 pneumonia. Asymptomatic on room air, not hypoxic HIV. Anemia Diarrhea Weight loss 04/28/2021. CT of abdomen revealed No hydronephrosis. Non-obstructing punctate bilateral nephrolithiasis. Renal ultrasound reveals signs of CKD. Transfuse PRBCs for hemoglobin less than 7.0. Patient is s/p 1 unit PRBCs. Await nephrology recommendations for [employer]. Creatinine slightly improved today. Follow-up CHANDNI, C3/C4, Anti-DsDNA, SPEP, UPEP, Serum IFx, Hep panel. HIV antibody was positive. 04/29/2021. Patient with no need for treatment for COVID-19 given that he is asymptomatic. Nephrology to determine need for HD. ID following for new HIV diagnosis. Follow-up CD4 and viral load. C3/C4 and Hep panel are negative. No schistocytes on peripheral smear. No thrombocytopenia. Patient reportedly with a baseline creatinine December [address] of Abdomen showed- No hydronephrosis. Non-obstructing punctate bilateral nephrolithiasis. Renal ultrasound shows signs of CKD. Strict I&O's daily. Obtain daily weights History Interval history: No new issues overnight. Hospitalist Physical - Constitutional Vitals: Temp Pulse Resp BP Pulse Ox 100.9 F H 115 H 16 163/101 88 04/29/21 04:18 04/29/21 04:18 04/29/21 04:18 04/29/21 04:18 04/29/21 04:18 General appearance: Present: no acute distress, well-nourished - EENT Eyes: Present: PERRL, EOM intact ENT: hearing intact, clear oral mucosa, dentition normal - Neck Neck: Present: supple, normal ROM - Respiratory Respiratory effort: normal Respiratory: bilateral: CTA - Cardiovascular Rhythm: regular Heart Sounds: Present: S1 & S2. Absent: gallop, rub - Extremities Extremities: no ischemia, No edema, Full ROM - Abdominal General gastrointestinal: soft, non-tender, non-distended, normal bowel sounds - Integumentary Integumentary: Present: clear, warm, dry - Neurologic Neurologic: CNII-XII intact, moves all extremities HEART Score - HEART Score Troponin: Troponin T < 0.010 ng/mL (0.00-0.029) 04/20/21 10:46 Results - Labs CBC & Chem 7: 04/29/21 04:36 04/29/21 04:36 Labs: Laboratory Last Values WBC 7.9 K/mm3 (4.5-11.0) 04/29/21 04:36 RBC 2.45 M/mm3 (3.65-5.03) L 04/29/21 04:36 Hgb 7.7 gm/dl (11.8-15.2) L 04/29/21 04:36 Hct 22.9 % (35.5-45.6) L 04/29/21 04:36 MCV 94 fl (84-94) 04/29/21 04:36 MCH 32 pg (28-32) 04/29/21 04:36 MCHC 34 % (32-34) 04/29/21 04:36 RDW 12.8 % (13.2-15.2) L 04/29/21 04:36 Plt Count 315 K/mm3 (140-440) 04/29/21 04:36 Lymph % (Auto) 10.7 % (13.4-35.0) L 04/24/21 14:28 [place] % (Auto) 5.8 % (0.0-7.3) 04/28/21 15:21 Eos % (Auto) 1.0 % (0.0-4.3) 04/28/21 15:21 Baso % (Auto) 0.2 % (0.0-1.8) 04/24/21 14:28 Lymph # (Auto) 0.7 K/mm3 (1.2-5.4) L 04/24/21 14:28 [place] # (Auto) 0.4 K/mm3 (0.0-0.8) 04/28/21 15:21 Eos # (Auto) 0.1 K/mm3 (0.0-0.4) 04/28/21 15:21 Baso # (Auto) 0.0 K/mm3 (0.0-0.1) 04/28/21 15:21 Add Manual Diff Complete 04/29/21 04:36 Total Counted 100 04/29/21 04:36 Seg Neutrophils % 79.8 % (40.0-70.0) H 04/28/21 15:21 Seg Neuts % (Manual) 89.0 % (40.0-70.0) H 04/29/21 04:36 Band Neutrophils % 0 % 04/29/21 04:36 Lymphocytes % (Manual) 9.0 % (13.4-35.0) L 04/29/21 04:36 Reactive Lymphs % (Man) 0 % 04/29/21 04:36 Monocytes % (Manual) 1.0 % (0.0-7.3) 04/29/21 04:36 Eosinophils % (Manual) 1.0 % (0.0-4.3) 04/29/21 04:36 Basophils % (Manual) 0 % (0.0-1.8) 04/29/21 04:36 Metamyelocytes % 0 % 04/29/21 04:36 Myelocytes % 0 % 04/29/21 04:36 Promyelocytes % 0 % 04/29/21 04:36 Blast Cells % 0 % 04/29/21 04:36 Nucleated RBC % Not Reportable 04/29/21 04:36 Seg Neutrophils # 5.6 K/mm3 (1.8-7.7) 04/28/21 15:21 Seg Neutrophils # Man 7.0 K/mm3 (1.8-7.7) 04/29/21 04:36 Band Neutrophils # 0.0 K/mm3 04/29/21 04:36 Lymphocytes # (Manual) 0.7 K/mm3 (1.2-5.4) L 04/29/21 04:36 Abs React Lymphs (Man) 0.0 K/mm3 04/29/21 04:36 Monocytes # (Manual) 0.1 K/mm3 (0.0-0.8) 04/29/21 04:36 Eosinophils # (Manual) 0.1 K/mm3 (0.0-0.4) 04/29/21 04:36 Basophils # (Manual) 0.0 K/mm3 (0.0-0.1) 04/29/21 04:36 Metamyelocytes # 0.0 K/mm3 04/29/21 04:36 Myelocytes # 0.0 K/mm3 04/29/21 04:36 Promyelocytes # 0.0 K/mm3 04/29/21 04:36 Blast Cells # 0.0 K/mm3 04/29/21 04:36 WBC Morphology Not Reportable 04/29/21 04:36 Hypersegmented Neuts Not Reportable 04/29/21 04:36 Hyposegmented Neuts Not Reportable 04/29/21 04:36 Hypogranular Neuts Not Reportable 04/29/21 04:36 Smudge Cells Not Reportable 04/29/21 04:36 Toxic Granulation Not Reportable 04/29/21 04:36 Toxic Vacuolation Not Reportable 04/29/21 04:36 Dohle Bodies Not Reportable 04/29/21 04:36 Pelger-Huet Anomaly Not Reportable 04/29/21 04:36 Karishma Rods Not Reportable 04/29/21 04:36 Platelet Estimate Consistent w auto 04/29/21 04:36 Clumped Platelets Not Reportable 04/29/21 04:36 Plt Clumps, EDTA Not Reportable 04/29/21 04:36 Large Platelets Few 04/29/21 04:36 Giant Platelets Not Reportable 04/29/21 04:36 Platelet Satelliting Not Reportable 04/29/21 04:36 Plt Morphology Comment Not Reportable 04/29/21 04:36 RBC Morphology Not Reportable 04/29/21 04:36 Dimorphic RBCs Not Reportable 04/29/21 04:36 Polychromasia Not Reportable 04/29/21 04:36 Hypochromasia Not Reportable 04/29/21 04:36 Poikilocytosis Not Reportable 04/29/21 04:36 Anisocytosis 1+ 04/29/21 04:36 Microcytosis Not Reportable 04/29/21 04:36 Macrocytosis Not Reportable 04/29/21 04:36 Spherocytes Not Reportable 04/29/21 04:36 Pappenheimer Bodies Not Reportable 04/29/21 04:36 Sickle Cells Not Reportable 04/29/21 04:36 Target Cells Not Reportable 04/29/21 04:36 Tear Drop Cells Not Reportable 04/29/21 04:36 Ovalocytes Not Reportable 04/29/21 04:36 Helmet Cells Not Reportable 04/29/21 04:36 Br[place] Bodies Not Reportable 04/29/21 04:36 [place] Rings Not Reportable 04/29/21 04:36 Bernarda Cells Not Reportable 04/29/21 04:36 Bite Cells Not Reportable 04/29/21 04:36 Crenated Cell Not Reportable 04/29/21 04:36 Elliptocytes Not Reportable 04/29/21 04:36 Acanthocytes (Spur) Not Reportable 04/29/21 04:36 Rouleaux Not Reportable 04/29/21 04:36 Hemoglobin C Crystals Not Reportable 04/29/21 04:36 Schistocytes Not Reportable 04/29/21 04:36 Malaria parasites Not Reportable 04/29/21 04:36 Angus Bodies Not Reportable 04/29/21 04:36 Hem Pathologist Commnt No 04/29/21 04:36 Sodium 132 mmol/L (137-145) L 04/29/21 04:36 Potassium 4.7 mmol/L (3.6-5.0) 04/29/21 04:36 Chloride 100.3 mmol/L (98-107) 04/29/21 04:36 Carbon Dioxide 19 mmol/L (22-30) L 04/29/21 04:36 Anion Gap 17 mmol/L 04/29/21 04:36 BUN 59 mg/dL (9-20) H 04/29/21 04:36 Creatinine 5.6 mg/dL (0.8-1.3) H 04/29/21 04:36 Estimated GFR 14 ml/min 04/29/21 04:36 BUN/Creatinine Ratio 11 % 04/29/21 04:36 Glucose 97 mg/dL (75-100) 04/29/21 04:36 POC Glucose 112 mg/dL (70-105) H 04/20/21 18:30 Calcium 8.9 mg/dL (8.4-10.2) 04/29/21 04:36 Phosphorus 4.70 mg/dL (2.5-4.5) H 04/28/21 06:56 Magnesium 1.50 mg/dL (1.7-2.3) L 04/23/21 05:45 Iron 10 ug/dL (49-181) L 04/25/21 19:01 TIBC 105 mcg/dL (250-450) L 04/25/21 19:01 % Saturation 10.79 % 04/21/21 12:35 Transferrin 121 mg/dl (180-329) L 04/21/21 12:35 Total Bilirubin < 0.20 mg/dL (0.1-1.2) 04/20/21 08:57 AST 30 units/L (5-40) 04/20/21 08:57 ALT 16 units/L (7-56) 04/20/21 08:57 Alkaline Phosphatase 61 units/L (35-129) 04/20/21 08:57 Lactate Dehydrogenase 544 units/L (91-180) H 04/22/21 Unknown Total Creatine Kinase 53 units/L (55-170) L 04/26/21 09:35 Troponin T < 0.010 ng/mL (0.00-0.029) 04/20/21 10:46 Serum Total Protein 6.2 g/dL (6.1-8.1) 04/25/21 19:01 Total Protein 7.7 g/dL (6.3-8.2) 04/20/21 08:57 Albumin 2.0 g/dL (3.8-4.8) L 04/25/21 19:01 Albumin/Globulin Ratio 0.6 % 04/20/21 08:57 Qlked-2-Qhkkdrpxj 0.5 g/dL (0.2-0.3) H 04/25/21 19:01 Ppogv-1-Ftozpwxcp 1.1 g/dL (0.5-0.9) H 04/25/21 19:01 Beta Globulins 0.5 g/dL (0.2-0.5) 04/25/21 19:01 Gamma Globulins 1.8 g/dL (0.8-1.7) H 04/25/21 19:01 Abnorm Protein Band 1 see below 04/25/21 19:01 PEP Interpretation see below H 04/25/21 19:01 Lipase 36 units/L (13-60) 04/20/21 08:57 Vitamin B12 1198 pg/mL (211-911) H 04/21/21 12:35 RBC Folic Acid 843 ng/mL (>280) 04/21/21 12:35 TSH 3.120 mlU/mL (0.270-4.200) 04/20/21 10:46 PTH Intact 16.50 pg/mL (15-65) 04/25/21 19:01 Urine Color Straw (Yellow) 04/22/21 14:51 Urine Turbidity Clear (Clear) 04/22/21 14:51 Urine pH 9.0 (5.0-7.0) H 04/22/21 14:51 Ur Specific [place] 1.007 (1.003-1.030) 04/22/21 14:51 Urine Protein >500 mg/dL (Negative) 04/22/21 14:51 Urine Glucose (UA) Neg mg/dL (Negative) 04/22/21 14:51 Urine Ketones Neg mg/dL (Negative) 04/22/21 14:51 Urine Blood Neg (Negative) 04/22/21 14:51 Urine Nitrite Neg (Negative) 04/22/21 14:51 Urine Bilirubin Neg (Negative) 04/22/21 14:51 Urine Urobilinogen < 2.0 mg/dL (<2.0) 04/22/21 14:51 Ur Leukocyte Esterase Neg (Negative) 04/22/21 14:51 Urine WBC (Auto) 1.0 /HPF (0.0-6.0) 04/22/21 14:51 Urine RBC (Auto) 1.0 /HPF (0.0-6.0) 04/22/21 14:51 Urine Eosinophils None seen (None Seen) 04/21/21 18:45 Urine Osmolality 317 Mosm/kg 04/21/21 18:45 Urine Total Volume 2900 ml 04/24/21 04:00 Urine Creatinine 44.3 mg/dL (0.1-20.0) H 04/24/21 04:00 Ur Creatinine 24 Hour 1.3 (0.8-2.8) 04/24/21 04:00 Protein/Creatinin Ratio 2.77 04/21/21 18:45 Urine Sodium 10 mmol/L 04/21/21 18:45 Urine Potassium 1.00 mmol/L 04/21/21 18:45 Urine Chloride 10.0 mmolL (110-250) L 04/21/21 18:45 Urine Calcium < 0.8 mg/dL (6.8-21.3) L 04/21/21 18:45 Urine Total Protein 186 mg/dL (5-11.8) H 04/21/21 18:45 CHANDNI Screen Negative (Negative) 04/25/21 19:01 Double Strand DNA Ab <1 IU/mL (<=4) 04/25/21 19:01 Complement C3 97 mg/dL (82-185) 04/25/21 19:01 Complement C4 52 mg/dL (15-53) 04/25/21 19:01 Syphilis IgG Antibody Nonreactive (NonReactive) 04/25/21 19:01 C. difficile Tox (PCR) Negative (Negative) 04/25/21 16:45 Coronavirus (PCR) Positive (Negative) A 04/24/21 Unknown Hepatitis A IgM Ab Non-reactive (NonReactive) 04/25/21 19:01 Hep Bs Antigen Non-reactive (Negative) 04/25/21 19:01 Hep B Core IgM Ab Non-reactive (NonReactive) 04/25/21 19:01 Hepatitis C Antibody Non-reactive (NonReactive) 04/25/21 19:01 HIV 1&2 Antibody Rapid Reactive (Non React) 04/25/21 19:01 HIV P24 Antigen Non react (Non React) 04/25/21 19:01 Schistocytes Smear None 04/22/21 Unknown Blood Type O POSITIVE 04/22/21 08:12 Antibody Screen Negative 04/22/21 08:12 Crossmatch See Detail 04/22/21 08:12 Krishnan/IV: Voiding Method Toilet Active Medications - Current Medications Current Medications: Generic Name Dose Route Start Last Admin Trade Name Freq PRN Reason Stop Dose Admin Acetaminophen 650 mg 04/20/21 15:00 04/29/21 04:47 Acetaminophen 325 Mg Tab PO 650 mg Q4H PRN Administration Pain MILD(1-3)/Fever >100.5/[place] Diphenoxylate HCl/Atropine 1 tab 04/26/21 17:11 04/28/21 20:40 Diphenoxylate/Atropine Tab PO 1 tab Q6H PRN Administration Diarrhea Epoetin Harris-epbx 20,000 unit 04/30/21 10:00 Epoetin Harris-Epbx 2,000 Unit/1 Ml Inj SUB-Q MoWeFr SANTOS Heparin Sodium (Porcine) 5,000 unit 04/21/21 09:00 04/28/21 17:00 Heparin 5,000 Unit/1 Ml Vial SUB-Q Not Given Q8H SANTOS Ferric Sodium Gluconate 110 mls @ 100 mls/hr 04/28/21 14:00 04/28/21 14:03 Complex 125 mg/ Sodium IV 05/05/21 11:05 100 mls/hr Chloride DAILY SANTOS Administration Ondansetron HCl 4 mg 04/26/21 17:54 04/28/21 20:40 Ondansetron 4 Mg/2 Ml Inj IV 4 mg Q8H PRN Administration Nausea Sodium Chloride 10 ml 04/20/21 22:00 04/28/21 22:00 Sodium Chloride 0.9% 10 Ml Flush Syringe IV 10 ml BID SANTOS Administration Sodium Chloride 10 ml 04/20/21 15:00 Sodium Chloride 0.9% 10 Ml Flush Syringe IV PRN PRN LINE FLUSH Sodium Chloride 10 ml 04/20/21 15:00 04/27/21 23:19 Sodium Chloride 0.9% 50 Ml Ivpb IV 10 ml PRN PRN Administration FLUSH Nutrition/Malnutrition Assess - Dietary Evaluation Nutrition/Malnutrition Findings: Nutrition Notes Start: 04/21/21 14:23 Freq: Status: Active Protocol: Document 04/28/21 17:24 DALY (Rec: 04/28/21 17:32 DALY [id number]) Nutrition Notes Initial or Follow up Brief Note Current Diet Renal Diet (since D 04/20). Height 6 ft 2 in Weight 69.9 kg [place] Body Weight (kg) 86.36 BMI 19.8 Weight change and time frame Discrepance of 6.941 Kg body weight gain in 1 week reported . Weight Status Appropriate Subjective/Other Information RD consult for routine F/U on Dietary assessment. Pt's PO intake of meals has been Good (100%), according to ADL notes. Pt to be discharged to home with family when medically stable. Percent of energy/protein needs met: Prescribed Renal Diet provides for energy/protein needs (2, 072 Kcal/77 g) during LOS. Nutrition Intervention Revisit per MD consult or patient Sign Off request: Additional Comments Continue monitoring food tolerance, %PO intake of meals , and BM.
--- NOTE | 2021-04-29 09:07 | Progress Note ---
Assessment and Plan Acute kidney injury, likely prerenal azotemia, possible CKD Hyperkalemia Covid 19 Anemia Diarrhea weight loss Plan: cont to have elevated Cr and BUN, however, stable with good UOP no indication for [employer] today Has 2.77 grams protein, likely has CKD, check secondary neph w/u with CHANDNI, C3/C4, Anti-DsDNA, SPEP, UPEP, Serum IFx, Hep panel, HIV. Ordered LDH and periperal smear, smear -ve for shistocytes, no thrombocytopenia, HIV ab +ve remains to have refractory anemia, not a candidate for kidney biopsy. On 12/29/2018 serum creatinine was 1.[address] of Abdomen showed- No hydronephrosis. Non-obstructing punctate bilateral nephrolithiasis Renal US shows CKD signs Anemia-transfuse as needed, Epogen ordered for ACD, check Iron panel No [employer] indication right now Renally dose medications Strict I&O's daily Obtain daily weights Continue to monitor renal function closely Subjective Date of service: 04/29/21 Principal diagnosis: ARF Interval history: On isolation for COVID-19 infection, no overnight events Objective - Vital Signs Vital signs: Vital Signs - 12hr 04/28/21 04/28/21 04/29/21 21:40 22:00 04:18 Temperature 99.4 F 100.9 F H Pulse Rate 105 H 115 H Respiratory 16 16 Rate Blood Pressure 148/103 163/101 O2 Sat by Pulse 93 93 88 Oximetry - Lab 04/29/21 04:36 04/29/21 04:36 Most recent lab results Calcium 8.9 mg/dL (8.4-10.2) 04/29/21 04:36 Phosphorus 4.70 mg/dL (2.5-4.5) H 04/28/21 06:56 Magnesium 1.50 mg/dL (1.7-2.3) L 04/23/21 05:45 Urine Creatinine 44.3 mg/dL (0.1-20.0) H 04/24/21 04:00 Urine Sodium 10 mmol/L 04/21/21 18:45 Urine Total Protein 186 mg/dL (5-11.8) H 04/21/21 18:45 Medications & Allergies - Medications Allergies/Adverse Reactions: Allergies No Known Allergies Allergy (Verified 04/20/21 08:43) Home Medications: Home Medications Medication Instructions Recorded Confirmed Last Taken Type Multivit-Min/Folic/Vit K/Lycop 1 tab PO QDAY 04/21/21 04/21/21 3 Days Ago History [Men's Multivitamin Tablet] ~04/18/21 Active Medications: Generic Name Dose Route Start Last Admin Trade Name Honorio PRN Reason Stop Dose Admin Acetaminophen 650 mg 04/20/21 15:00 04/29/21 04:47 Acetaminophen 325 Mg Tab PO 650 mg Q4H PRN Administration Pain MILD(1-3)/Fever >100.5/[place] Diphenoxylate HCl/Atropine 1 tab 04/26/21 17:11 04/28/21 20:40 Diphenoxylate/Atropine Tab PO 1 tab Q6H PRN Administration Diarrhea Epoetin Harris-epbx 20,000 unit 04/30/21 10:00 Epoetin Harris-Epbx 2,000 Unit/1 Ml Inj SUB-Q MoWeFr SANTOS Heparin Sodium (Porcine) 5,000 unit 04/21/21 09:00 04/28/21 17:00 Heparin 5,000 Unit/1 Ml Vial SUB-Q Not Given Q8H SANTOS Ferric Sodium Gluconate 110 mls @ 100 mls/hr 04/28/21 14:00 04/28/21 14:03 Complex 125 mg/ Sodium IV 05/05/21 11:05 100 mls/hr Chloride DAILY SANTOS Administration Ondansetron HCl 4 mg 04/26/21 17:54 04/28/21 20:40 Ondansetron 4 Mg/2 Ml Inj IV 4 mg Q8H PRN Administration Nausea Sodium Chloride 10 ml 04/20/21 22:00 04/28/21 22:00 Sodium Chloride 0.9% 10 Ml Flush Syringe IV 10 ml BID SANTOS Administration Sodium Chloride 10 ml 04/20/21 15:00 Sodium Chloride 0.9% 10 Ml Flush Syringe IV PRN PRN LINE FLUSH Sodium Chloride 10 ml 04/20/21 15:00 04/27/21 23:19 Sodium Chloride 0.9% 50 Ml Ivpb IV 10 ml PRN PRN Administration FLUSH
[2021-04-29] MEDS: HEPARIN 5,000 UNIT/1 ML VIAL SUB-Q SCH ×2 (10:41→18:40)
[2021-04-29] MEDS: SODIUM FERRIC GLUCON/SUCRO 125 MG in SODIUM CHLORIDE 0.9% 100 ML IV SCH (10:42)
[2021-04-29] MEDS: ONDANSETRON 4 MG/2 ML INJ IV PRN (10:49)
[2021-04-29] MEDS: DIPHENOXYLATE/ATROPINE TAB PO PRN ×2 (10:49→18:42)
--- NOTE | 2021-04-29 13:15 | Progress Note ---
Assessment and Plan Cultures: HIV antibody positive A/P: 40-year-old man past medical history none presented to hospital with GI symptoms including unintentional weight loss. #New diagnosis HIV: Patient unsure when he may have been infected. Denies any IVDU or recent new sexual partners. Given his numerous GI symptoms, which may be attributable in part at least to HIV he may have been infected some time previously. Syphilis negative #Nausea/vomiting/diarrhea: In the setting of new onset renal failure with new diagnosis of HIV. No acute inflammation on CT abdomen pelvis. #COVID-19: No shortness of breath, on room air. No need for acute treatment. #BILLIE on CKD: Renally dose medications. Ultimate determination of need of HD will drive ART choice. #Unintentional weight loss: Secondary to HIV versus ?underlying malignancy Recs: -Check CD4 and viral load -As he is uninsured, would hold on initiating ART until he can obtain follow-up with [facility]. Patient lives in [place], discussed with him that closest clinic is [facility] which can provide free follow- up and treatment. -No need for acute Covid treatment -Follow-up GI recommendations. -Follow-up ultimate decision on HD, as with HD he can tolerate a single tablet regimen, versus with decreased GFR with need intermittent dosing of ART. -No ID barriers to discharge. Thank you for the consult, we will continue to follow. Fernando Kuhn MD [facility] ([facility]) O: [phone] F: [phone] Subjective Date of service: 04/29/21 Principal diagnosis: ARF Interval history: Remains febrile, otherwise no new issues. Gi symptoms slowly improving. Objective - Exam Narrative Exam: Physical exam deferred to reduce risk of transmission of COVID-19. Please refer to primary team's note. - Constitutional Vitals: Vital Signs Temp Pulse Resp BP Pulse Ox 98.8 F 103 H 20 142/96 94 04/29/21 10:39 04/29/21 10:39 04/29/21 10:39 04/29/21 10:39 04/29/21 10:39 Temperature -Last 24 Hours Temperature 98.8 F Temperature 100.9 F Temperature 99.4 F Temperature 100.2 F - Labs CBC & Chem 7: 04/29/21 04:36 04/29/21 04:36 Labs: Abnormal lab results 04/25/21 04/28/21 04/29/21 Range/Units 19:01 15:21 04:36 RBC 2.39 L (3.65-5.03) M/mm3 Hgb 7.5 L (11.8-15.2) gm/dl Hct 22.3 L (35.5-45.6) % RDW 13.1 L (13.2-15.2) % Seg Neutrophils % 79.8 H (40.0-70.0) % Seg Neuts % (Manual) 93.0 H (40.0-70.0) % Lymphocytes % (Manual) 3.0 L (13.4-35.0) % Lymphocytes # (Manual) 0.2 L (1.2-5.4) K/mm3 Sodium 132 L (137-145) mmol/L Carbon Dioxide 19 L (22-30) mmol/L BUN 59 H (9-20) mg/dL Creatinine 5.6 H (0.8-1.3) mg/dL Albumin 2.0 L (3.8-4.8) g/dL Dopai-0-Cnpholkce 0.5 H (0.2-0.3) g/dL Fmkkn-7-Ythlloltr 1.1 H (0.5-0.9) g/dL Gamma Globulins 1.8 H (0.8-1.7) g/dL PEP Interpretation see below H 04/29/21 Range/Units 04:36 RBC 2.45 L (3.65-5.03) M/mm3 Hgb 7.7 L (11.8-15.2) gm/dl Hct 22.9 L (35.5-45.6) % RDW 12.8 L (13.2-15.2) % Seg Neutrophils % (40.0-70.0) % Seg Neuts % (Manual) 89.0 H (40.0-70.0) % Lymphocytes % (Manual) 9.0 L (13.4-35.0) % Lymphocytes # (Manual) 0.7 L (1.2-5.4) K/mm3 Sodium (137-145) mmol/L Carbon Dioxide (22-30) mmol/L BUN (9-20) mg/dL Creatinine (0.8-1.3) mg/dL Albumin (3.8-4.8) g/dL Pqdvn-1-Hlotmtqfm (0.2-0.3) g/dL Kdvuk-1-Ffuiosgqj (0.5-0.9) g/dL Gamma Globulins (0.8-1.7) g/dL PEP Interpretation
[2021-04-29 23:13] LABS: Creatinine 24 Hour,Urine 1.4 (0.8-2.8); Creatinine,Urine 53.5 mg/dL (0.1-20.0)
[2021-04-30] MEDS: HEPARIN 5,000 UNIT/1 ML VIAL SUB-Q SCH ×3 (02:03→18:07)
[2021-04-30 06:04] LABS: Hematocrit 21.1 % (35.5-45.6); Hemoglobin 7.1 gm/dl (11.8-15.2); Mean Corpuscular HGB Conc 33 % (32-34); Mean Corpuscular Volume 95 fl (84-94); Platelet Count 279 K/mm3 (140-440); Red Blood Count 2.24 M/mm3 (3.65-5.03); Red Cell Distribution Width 12.9 % (13.2-15.2)
[2021-04-30 06:16] LABS: Calcium 8.1 mg/dL (8.4-10.2)
[2021-04-30 06:52] LABS: Basophils % (Manual) 0 % (0.0-1.8); Eosinophils % (Manual) 0 % (0.0-4.3); Total Cells Counted 100
[2021-04-30 06:53] LABS: Anisocytosis 1+; Large Platelets Few; Platelet Estimate Consistent w Auto
[2021-04-30] MEDS: ACETAMINOPHEN 325 MG TAB PO PRN ×3 (08:00→22:32)
--- NOTE | 2021-04-30 09:03 | Progress Note ---
Assessment and Plan Acute kidney injury, likely prerenal azotemia, possible CKD Hyperkalemia Covid 19 Anemia Diarrhea weight loss Plan: collected 24 hours creatinine clearance was 16 ml/min no indication for METHODS STUDY ANALYST today kidney disease could be related to HIVAN, followed by ID. not a candidate for a kidney biopsy due active HIV infection, COVID-19 infection and anemia. off IVF CT of Abdomen showed- No hydronephrosis. Non-obstructing punctate bilateral nephrolithiasis Renal US shows CKD signs Anemia-transfuse as needed, Epogen ordered for ACD, check Iron panel No METHODS STUDY ANALYST indication right now Renally dose medications Strict I&O's daily Obtain daily weights Continue to monitor renal function closely Subjective Date of service: 04/30/21 Principal diagnosis: ARF Interval history: completed 24 hours collection of urine Objective - Vital Signs Vital signs: Vital Signs - 12hr 04/29/21 04/29/21 04/30/21 21:23 22:00 02:00 Temperature 99.4 F Pulse Rate 109 H 123 H Respiratory 18 18 Rate Respiratory 18 Rate [Head] Blood Pressure 146/99 O2 Sat by Pulse 88 90 Oximetry 04/30/21 04:03 Temperature 99.3 F Pulse Rate 131 H Respiratory 18 Rate Respiratory Rate [Head] Blood Pressure 137/91 O2 Sat by Pulse 85 Oximetry - Lab 04/30/21 05:26 04/30/21 05:26 Most recent lab results Calcium 8.1 mg/dL (8.4-10.2) L 04/30/21 05:26 Phosphorus 4.70 mg/dL (2.5-4.5) H 04/28/21 06:56 Magnesium 1.50 mg/dL (1.7-2.3) L 04/23/21 05:45 Urine Creatinine 53.5 mg/dL (0.1-20.0) H 04/28/21 18:44 Urine Sodium 10 mmol/L 04/21/21 18:45 Urine Total Protein 186 mg/dL (5-11.8) H 04/21/21 18:45 Medications & Allergies - Medications Allergies/Adverse Reactions: Allergies No Known Allergies Allergy (Verified 04/20/21 08:43) Home Medications: Home Medications Medication Instructions Recorded Confirmed Last Taken Type Multivit-Min/Folic/Vit K/Lycop 1 tab PO QDAY 04/21/21 04/21/21 3 Days Ago History [Men's Multivitamin Tablet] ~04/18/21 Active Medications: Generic Name Dose Route Start Last Admin Trade Name Isaíasq PRN Reason Stop Dose Admin Acetaminophen 650 mg 04/20/21 15:00 04/29/21 18:38 Acetaminophen 325 Mg Tab PO 650 mg Q4H PRN Administration Pain MILD(1-3)/Fever >100.5/[place] Diphenoxylate HCl/Atropine 1 tab 04/26/21 17:11 04/29/21 18:42 Diphenoxylate/Atropine Tab PO 1 tab Q6H PRN Administration Diarrhea Epoetin Harris-epbx 20,000 unit 04/30/21 14:00 Epoetin Harris-Epbx 20,000 Unit/1 Ml Vial SUB-Q MoWeFr SANTOS Heparin Sodium (Porcine) 5,000 unit 04/21/21 09:00 04/30/21 02:03 Heparin 5,000 Unit/1 Ml Vial SUB-Q 5,000 unit Q8H SANTOS Administration Ferric Sodium Gluconate 110 mls @ 100 mls/hr 04/28/21 14:00 04/29/21 10:42 Complex 125 mg/ Sodium IV 05/05/21 11:05 100 mls/hr Chloride DAILY SANTOS Administration Ondansetron HCl 4 mg 04/26/21 17:54 04/29/21 10:49 Ondansetron 4 Mg/2 Ml Inj IV 4 mg Q8H PRN Administration Nausea Sodium Bicarbonate 1,300 mg 04/30/21 14:00 Sodium Bicarbonate 650 Mg Tab PO TID SANTOS Sodium Chloride 10 ml 04/20/21 22:00 04/29/21 22:32 Sodium Chloride 0.9% 10 Ml Flush Syringe IV 10 ml BID SANTOS Administration Sodium Chloride 10 ml 04/20/21 15:00 Sodium Chloride 0.9% 10 Ml Flush Syringe IV PRN PRN LINE FLUSH Sodium Chloride 10 ml 04/20/21 15:00 04/27/21 23:19 Sodium Chloride 0.9% 50 Ml Ivpb IV 10 ml PRN PRN Administration FLUSH
--- NOTE | 2021-04-30 09:23 | Progress Note ---
Assessment and Plan Assessment and plan: Acute kidney injury on CKD Hyperkalemia COVID-19 pneumonia. Asymptomatic on room air, not hypoxic HIV. Anemia Diarrhea Weight loss 04/28/2021. CT of abdomen revealed No hydronephrosis. Non-obstructing punctate bilateral nephrolithiasis. Renal ultrasound reveals signs of CKD. Transfuse PRBCs for hemoglobin less than 7.0. Patient is s/p 1 unit PRBCs. Await nephrology recommendations for RN GERIATRIC. Creatinine slightly improved today. Follow-up CHANDNI, C3/C4, Anti-DsDNA, SPEP, UPEP, Serum IFx, Hep panel. HIV antibody was positive. 04/29/2021. Patient with no need for treatment for COVID-19 given that he is asymptomatic. Nephrology to determine need for HD. ID following for new HIV diagnosis. Follow-up CD4 and viral load. C3/C4 and Hep panel are negative. No schistocytes on peripheral smear. No thrombocytopenia. Patient reportedly with a baseline creatinine December [address] of Abdomen showed- No hydronephrosis. Non-obstructing punctate bilateral nephrolithiasis. Renal ultrasound shows signs of CKD. Strict I&O's daily. Obtain daily weights 04/30/2021. Patient complained of nurses not being responsive on the shift supervisor. I discussed with the charge nurse for service recovery. Patient with no need for treatment for COVID-19 given that he is asymptomatic. Nephrology to deter mine need for HD. ID following for new HIV diagnosis. Follow-up CD4 and viral load. C3/C4 and Hep panel are negative. Kidney disease could be related to HIVAN, followed by ID. not a candidate for a kidney biopsy due active HIV infection, COVID-19 infection and anemia. History Interval history: No new issues overnight. Hospitalist Physical - Constitutional Vitals: Temp Pulse Resp BP Pulse Ox 99.3 F 131 H 18 137/91 85 04/30/21 04:03 04/30/21 04:03 04/30/21 04:03 04/30/21 04:03 04/30/21 04:03 General appearance: Present: no acute distress, well-nourished - EENT Eyes: Present: PERRL, EOM intact ENT: hearing intact, clear oral mucosa, dentition normal - Neck Neck: Present: supple, normal ROM - Respiratory Respiratory effort: normal Respiratory: bilateral: CTA - Cardiovascular Rhythm: regular Heart Sounds: Present: S1 & S2. Absent: gallop, rub - Extremities Extremities: no ischemia, No edema, Full ROM - Abdominal General gastrointestinal: soft, non-tender, non-distended, normal bowel sounds - Integumentary Integumentary: Present: clear, warm, dry - Neurologic Neurologic: CNII-XII intact, moves all extremities HEART Score - HEART Score Troponin: Troponin T < 0.010 ng/mL (0.00-0.029) 04/20/21 10:46 Results - Labs CBC & Chem 7: 04/30/21 05:26 04/30/21 05:26 Labs: Laboratory Last Values WBC 6.8 K/mm3 (4.5-11.0) 04/30/21 05:26 RBC 2.24 M/mm3 (3.65-5.03) L 04/30/21 05:26 Hgb 7.1 gm/dl (11.8-15.2) L 04/30/21 05:26 Hct 21.1 % (35.5-45.6) L 04/30/21 05:26 MCV 95 fl (84-94) H 04/30/21 05:26 MCH 32 pg (28-32) 04/30/21 05:26 MCHC 33 % (32-34) 04/30/21 05:26 RDW 12.9 % (13.2-15.2) L 04/30/21 05:26 Plt Count 279 K/mm3 (140-440) 04/30/21 05:26 Lymph % (Auto) 10.7 % (13.4-35.0) L 04/24/21 14:28 [place] % (Auto) 5.8 % (0.0-7.3) 04/28/21 15:21 Eos % (Auto) 1.0 % (0.0-4.3) 04/28/21 15:21 Baso % (Auto) 0.2 % (0.0-1.8) 04/24/21 14:28 Lymph # (Auto) 0.7 K/mm3 (1.2-5.4) L 04/24/21 14:28 [place] # (Auto) 0.4 K/mm3 (0.0-0.8) 04/28/21 15:21 Eos # (Auto) 0.1 K/mm3 (0.0-0.4) 04/28/21 15:21 Baso # (Auto) 0.0 K/mm3 (0.0-0.1) 04/28/21 15:21 Add Manual Diff Complete 04/30/21 05:26 Total Counted 100 04/30/21 05:26 Seg Neutrophils % 79.8 % (40.0-70.0) H 04/28/21 15:21 Seg Neuts % (Manual) 95.0 % (40.0-70.0) H 04/30/21 05:26 Band Neutrophils % 0 % 04/30/21 05:26 Lymphocytes % (Manual) 4.0 % (13.4-35.0) L 04/30/21 05:26 Reactive Lymphs % (Man) 0 % 04/30/21 05:26 Monocytes % (Manual) 1.0 % (0.0-7.3) 04/30/21 05:26 Eosinophils % (Manual) 0 % (0.0-4.3) 04/30/21 05:26 Basophils % (Manual) 0 % (0.0-1.8) 04/30/21 05:26 Metamyelocytes % 0 % 04/30/21 05:26 Myelocytes % 0 % 04/30/21 05:26 Promyelocytes % 0 % 04/30/21 05:26 Blast Cells % 0 % 04/30/21 05:26 Nucleated RBC % Not Reportable 04/30/21 05:26 Seg Neutrophils # 5.6 K/mm3 (1.8-7.7) 04/28/21 15:21 Seg Neutrophils # Man 6.5 K/mm3 (1.8-7.7) 04/30/21 05:26 Band Neutrophils # 0.0 K/mm3 04/30/21 05:26 Lymphocytes # (Manual) 0.3 K/mm3 (1.2-5.4) L 04/30/21 05:26 Abs React Lymphs (Man) 0.0 K/mm3 04/30/21 05:26 Monocytes # (Manual) 0.1 K/mm3 (0.0-0.8) 04/30/21 05:26 Eosinophils # (Manual) 0.0 K/mm3 (0.0-0.4) 04/30/21 05:26 Basophils # (Manual) 0.0 K/mm3 (0.0-0.1) 04/30/21 05:26 Metamyelocytes # 0.0 K/mm3 04/30/21 05:26 Myelocytes # 0.0 K/mm3 04/30/21 05:26 Promyelocytes # 0.0 K/mm3 04/30/21 05:26 Blast Cells # 0.0 K/mm3 04/30/21 05:26 WBC Morphology Not Reportable 04/30/21 05:26 Hypersegmented Neuts Not Reportable 04/30/21 05:26 Hyposegmented Neuts Not Reportable 04/30/21 05:26 Hypogranular Neuts Not Reportable 04/30/21 05:26 Smudge Cells Not Reportable 04/30/21 05:26 Toxic Granulation Not Reportable 04/30/21 05:26 Toxic Vacuolation Not Reportable 04/30/21 05:26 Dohle Bodies Not Reportable 04/30/21 05:26 Pelger-Huet Anomaly Not Reportable 04/30/21 05:26 Karishma Rods Not Reportable 04/30/21 05:26 Platelet Estimate Consistent w auto 04/30/21 05:26 Clumped Platelets Not Reportable 04/30/21 05:26 Plt Clumps, EDTA Not Reportable 04/30/21 05:26 Large Platelets Few 04/30/21 05:26 Giant Platelets Not Reportable 04/30/21 05:26 Platelet Satelliting Not Reportable 04/30/21 05:26 Plt Morphology Comment Not Reportable 04/30/21 05:26 RBC Morphology Not Reportable 04/30/21 05:26 Dimorphic RBCs Not Reportable 04/30/21 05:26 Polychromasia Not Reportable 04/30/21 05:26 Hypochromasia Not Reportable 04/30/21 05:26 Poikilocytosis Not Reportable 04/30/21 05:26 Anisocytosis 1+ 04/30/21 05:26 Microcytosis Not Reportable 04/30/21 05:26 Macrocytosis Not Reportable 04/30/21 05:26 Spherocytes Not Reportable 04/30/21 05:26 Pappenheimer Bodies Not Reportable 04/30/21 05:26 Sickle Cells Not Reportable 04/30/21 05:26 Target Cells Not Reportable 04/30/21 05:26 Tear Drop Cells Not Reportable 04/30/21 05:26 Ovalocytes Not Reportable 04/30/21 05:26 Helmet Cells Not Reportable 04/30/21 05:26 Bragg-Cecil Bodies Not Reportable 04/30/21 05:26 [place] Rings Not Reportable 04/30/21 05:26 Ewing Cells Not Reportable 04/30/21 05:26 Bite Cells Not Reportable 04/30/21 05:26 Crenated Cell Not Reportable 04/30/21 05:26 Elliptocytes Not Reportable 04/30/21 05:26 Acanthocytes (Spur) Not Reportable 04/30/21 05:26 Rouleaux Not Reportable 04/30/21 05:26 Hemoglobin C Crystals Not Reportable 04/30/21 05:26 Schistocytes Not Reportable 04/30/21 05:26 Malaria parasites Not Reportable 04/30/21 05:26 Angus Bodies Not Reportable 04/30/21 05:26 Hem Pathologist Commnt No 04/30/21 05:26 Sodium 129 mmol/L (137-145) L 04/30/21 05:26 Potassium 4.5 mmol/L (3.6-5.0) 04/30/21 05:26 Chloride 100.2 mmol/L (98-107) 04/30/21 05:26 Carbon Dioxide 18 mmol/L (22-30) L 04/30/21 05:26 Anion Gap 15 mmol/L 04/30/21 05:26 BUN 62 mg/dL (9-20) H 04/30/21 05:26 Creatinine 5.7 mg/dL (0.8-1.3) H 04/30/21 05:26 Estimated GFR 13 ml/min 04/30/21 05:26 BUN/Creatinine Ratio 11 % 04/30/21 05:26 Glucose 106 mg/dL (75-100) H 04/30/21 05:26 POC Glucose 112 mg/dL (70-105) H 04/20/21 18:30 Calcium 8.1 mg/dL (8.4-10.2) L 04/30/21 05:26 Phosphorus 4.70 mg/dL (2.5-4.5) H 04/28/21 06:56 Magnesium 1.50 mg/dL (1.7-2.3) L 04/23/21 05:45 Iron 10 ug/dL (49-181) L 04/25/21 19:01 TIBC 105 mcg/dL (250-450) L 04/25/21 19:01 % Saturation 10.79 % 04/21/21 12:35 Transferrin 121 mg/dl (180-329) L 04/21/21 12:35 Total Bilirubin < 0.20 mg/dL (0.1-1.2) 04/20/21 08:57 AST 30 units/L (5-40) 04/20/21 08:57 ALT 16 units/L (7-56) 04/20/21 08:57 Alkaline Phosphatase 61 units/L (35-129) 04/20/21 08:57 Lactate Dehydrogenase 544 units/L (91-180) H 04/22/21 Unknown Total Creatine Kinase 53 units/L (55-170) L 04/26/21 09:35 Troponin T < 0.010 ng/mL (0.00-0.029) 04/20/21 10:46 Serum Total Protein 6.2 g/dL (6.1-8.1) 04/25/21 19:01 Total Protein 7.7 g/dL (6.3-8.2) 04/20/21 08:57 Albumin 2.0 g/dL (3.8-4.8) L 04/25/21 19:01 Albumin/Globulin Ratio 0.6 % 04/20/21 08:57 Dqwrf-7-Rwxoeikln 0.5 g/dL (0.2-0.3) H 04/25/21 19:01 Peelv-9-Snsvhrquu 1.1 g/dL (0.5-0.9) H 04/25/21 19:01 Beta Globulins 0.5 g/dL (0.2-0.5) 04/25/21 19:01 Gamma Globulins 1.8 g/dL (0.8-1.7) H 04/25/21 19:01 Abnorm Protein Band 1 see below 04/25/21 19:01 PEP Interpretation see below H 04/25/21 19:01 Lipase 36 units/L (13-60) 04/20/21 08:57 Vitamin B12 1198 pg/mL (211-911) H 04/21/21 12:35 RBC Folic Acid 843 ng/mL (>280) 04/21/21 12:35 TSH 3.120 mlU/mL (0.270-4.200) 04/20/21 10:46 PTH Intact 16.50 pg/mL (15-65) 04/25/21 19:01 Urine Color Straw (Yellow) 04/22/21 14:51 Urine Turbidity Clear (Clear) 04/22/21 14:51 Urine pH 9.0 (5.0-7.0) H 04/22/21 14:51 Ur Specific [place] 1.007 (1.003-1.030) 04/22/21 14:51 Urine Protein >500 mg/dL (Negative) 04/22/21 14:51 Urine Glucose (UA) Neg mg/dL (Negative) 04/22/21 14:51 Urine Ketones Neg mg/dL (Negative) 04/22/21 14:51 Urine Blood Neg (Negative) 04/22/21 14:51 Urine Nitrite Neg (Negative) 04/22/21 14:51 Urine Bilirubin Neg (Negative) 04/22/21 14:51 Urine Urobilinogen < 2.0 mg/dL (<2.0) 04/22/21 14:51 Ur Leukocyte Esterase Neg (Negative) 04/22/21 14:51 Urine WBC (Auto) 1.0 /HPF (0.0-6.0) 04/22/21 14:51 Urine RBC (Auto) 1.0 /HPF (0.0-6.0) 04/22/21 14:51 Urine Eosinophils None seen (None Seen) 04/21/21 18:45 Urine Osmolality 317 Mosm/kg 04/21/21 18:45 Urine Total Volume 2600 ml 04/28/21 18:44 Urine Creatinine 53.5 mg/dL (0.1-20.0) H 04/28/21 18:44 Ur Creatinine 24 Hour 1.4 (0.8-2.8) 04/28/21 18:44 Protein/Creatinin Ratio 2.77 04/21/21 18:45 Urine Sodium 10 mmol/L 04/21/21 18:45 Urine Potassium 1.00 mmol/L 04/21/21 18:45 Urine Chloride 10.0 mmolL (110-250) L 04/21/21 18:45 Urine Calcium < 0.8 mg/dL (6.8-21.3) L 04/21/21 18:45 Urine Total Protein 186 mg/dL (5-11.8) H 04/21/21 18:45 CHANDNI Screen Negative (Negative) 04/25/21 19:01 Double Strand DNA Ab <1 IU/mL (<=4) 04/25/21 19:01 Complement C3 97 mg/dL (82-185) 04/25/21 19:01 Complement C4 52 mg/dL (15-53) 04/25/21 19:01 Syphilis IgG Antibody Nonreactive (NonReactive) 04/25/21 19:01 C. difficile Tox (PCR) Negative (Negative) 04/25/21 16:45 Coronavirus (PCR) Positive (Negative) A 04/24/21 Unknown Hepatitis A IgM Ab Non-reactive (NonReactive) 04/25/21 19:01 Hep Bs Antigen Non-reactive (Negative) 04/25/21 19:01 Hep B Core IgM Ab Non-reactive (NonReactive) 04/25/21 19:01 Hepatitis C Antibody Non-reactive (NonReactive) 04/25/21 19:01 HIV 1&2 Antibody Rapid Reactive (Non React) 04/25/21 19:01 HIV P24 Antigen Non react (Non React) 04/25/21 19:01 Schistocytes Smear None 04/22/21 Unknown Blood Type O POSITIVE 04/22/21 08:12 Antibody Screen Negative 04/22/21 08:12 Crossmatch See Detail 04/22/21 08:12 Krishnan/IV: Voiding Method Urinal Active Medications - Current Medications Current Medications: Generic Name Dose Route Start Last Admin Trade Name Freq PRN Reason Stop Dose Admin Acetaminophen 650 mg 04/20/21 15:00 04/29/21 18:38 Acetaminophen 325 Mg Tab PO 650 mg Q4H PRN Administration Pain MILD(1-3)/Fever >100.5/LANGLEY Diphenoxylate HCl/Atropine 1 tab 04/26/21 17:11 04/29/21 18:42 Diphenoxylate/Atropine Tab PO 1 tab Q6H PRN Administration Diarrhea Epoetin Harris-epbx 20,000 unit 04/30/21 14:00 Epoetin Harris-Epbx 20,000 Unit/1 Ml Vial SUB-Q MoWeFr SANTOS Heparin Sodium (Porcine) 5,000 unit 04/21/21 09:00 04/30/21 02:03 Heparin 5,000 Unit/1 Ml Vial SUB-Q 5,000 unit Q8H SANTOS Administration Ferric Sodium Gluconate 110 mls @ 100 mls/hr 04/28/21 14:00 04/29/21 10:42 Complex 125 mg/ Sodium IV 05/05/21 11:05 100 mls/hr Chloride DAILY SANTOS Administration Ondansetron HCl 4 mg 04/26/21 17:54 04/29/21 10:49 Ondansetron 4 Mg/2 Ml Inj IV 4 mg Q8H PRN Administration Nausea Sodium Bicarbonate 1,300 mg 04/30/21 14:00 Sodium Bicarbonate 650 Mg Tab PO TID SANTOS Sodium Chloride 10 ml 04/20/21 22:00 04/29/21 22:32 Sodium Chloride 0.9% 10 Ml Flush Syringe IV 10 ml BID SANTOS Administration Sodium Chloride 10 ml 04/20/21 15:00 Sodium Chloride 0.9% 10 Ml Flush Syringe IV PRN PRN LINE FLUSH Sodium Chloride 10 ml 04/20/21 15:00 04/27/21 23:19 Sodium Chloride 0.9% 50 Ml Ivpb IV 10 ml PRN PRN Administration FLUSH Nutrition/Malnutrition Assess - Dietary Evaluation Nutrition/Malnutrition Findings: Nutrition Notes Start: 04/21/21 14:23 Freq: Status: Active Protocol: Document 04/28/21 17:24 DALY (Rec: 04/28/21 17:32 DALY [id number]) Nutrition Notes Initial or Follow up Brief Note Current Diet Renal Diet (since D 04/20). Height 6 ft 2 in Weight 69.9 kg [place] Body Weight (kg) 86.36 BMI 19.8 Weight change and time frame Discrepance of 6.941 Kg body weight gain in 1 week reported . Weight Status Appropriate Subjective/Other Information RD consult for routine F/U on Dietary assessment. Pt's PO intake of meals has been Good (100%), according to ADL notes. Pt to be discharged to home with family when medically stable. Percent of energy/protein needs met: Prescribed Renal Diet provides for energy/protein needs (2, 072 Kcal/77 g) during LOS. Nutrition Intervention Revisit per MD consult or patient Sign Off request: Additional Comments Continue monitoring food tolerance, %PO intake of meals , and BM.
[2021-04-30] MEDS ORDERED: EPOETIN ALFA-EPBX 2,000 UNIT/1 ML INJ SUB-Q SCH (10:00)
[2021-04-30] MEDS: SODIUM FERRIC GLUCON/SUCRO 125 MG in SODIUM CHLORIDE 0.9% 100 ML IV SCH (10:01)
[2021-04-30] MEDS: ONDANSETRON 4 MG/2 ML INJ IV PRN (10:15)
--- NOTE | 2021-04-30 10:36 | Progress Note ---
Assessment and Plan Cultures: HIV antibody positive A/P: 40-year-old man past medical history none presented to hospital with GI symptoms including unintentional weight loss. #New diagnosis HIV: Patient unsure when he may have been infected. Denies any IVDU or recent new sexual partners. Given his numerous GI symptoms, which may be attributable in part at least to HIV he may have been infected some time previously. Syphilis negative #Nausea/vomiting/diarrhea: In the setting of new onset renal failure with new diagnosis of HIV. No acute inflammation on CT abdomen pelvis. #COVID-19: No shortness of breath, on room air. No need for acute treatment. #BILLIE on CKD: Renally dose medications. Ultimate determination of need of HD will drive ART choice as outpatient. #Unintentional weight loss: Secondary to HIV versus ?underlying malignancy Recs: -Check CD4 and viral load -As he is uninsured, would hold on initiating ART until he can obtain follow-up with [facility]. Patient lives in [place], discussed with him that closest clinic is [facility] which can provide free follow- up and treatment. -No need for acute Covid treatment -Discussed with patient the importance of establishing care for HIV with [facility], as many of his symptoms may be at least partially secondary to the HIV. -Follow-up ultimate decision on HD, as with HD he can tolerate a single tablet regimen, versus with decreased GFR with need intermittent dosing of ART. -No ID barriers to discharge. Thank you for the consult, we will continue to follow. Fernando Kuhn MD [facility] O: [phone] F: [phone] Subjective Date of service: 04/30/21 Principal diagnosis: ARF Interval history: Afebrile overnight, white count 6.8. Remains on room air. Objective - Exam Narrative Exam: Physical exam deferred to reduce risk of transmission of COVID-19. Please refer to primary team's note. - Constitutional Vitals: Vital Signs Temp Pulse Resp BP Pulse Ox 99.3 F 131 H 18 137/91 85 04/30/21 04:03 04/30/21 04:03 04/30/21 04:03 04/30/21 04:03 04/30/21 04:03 Temperature -Last 24 Hours Temperature 99.3 F Temperature 99.4 F Temperature 98.7 F Temperature 98.8 F - Labs CBC & Chem 7: 04/30/21 05:26 04/30/21 05:26 Labs: Abnormal lab results 04/28/21 04/30/21 04/30/21 Range/Units 18:44 05:26 05:26 RBC 2.24 L (3.65-5.03) M/mm3 Hgb 7.1 L (11.8-15.2) gm/dl Hct 21.1 L (35.5-45.6) % MCV 95 H (84-94) fl RDW 12.9 L (13.2-15.2) % Seg Neuts % (Manual) 95.0 H (40.0-70.0) % Lymphocytes % (Manual) 4.0 L (13.4-35.0) % Lymphocytes # (Manual) 0.3 L (1.2-5.4) K/mm3 Sodium 129 L (137-145) mmol/L Carbon Dioxide 18 L (22-30) mmol/L BUN 62 H (9-20) mg/dL Creatinine 5.7 H (0.8-1.3) mg/dL Glucose 106 H (75-100) mg/dL Calcium 8.1 L (8.4-10.2) mg/dL Urine Creatinine 53.5 H (0.1-20.0) mg/dL
[2021-04-30] MEDS: SODIUM BICARBONATE 650 MG TAB PO SCH ×2 (13:13→21:11)
[2021-04-30] MEDS: DIPHENOXYLATE/ATROPINE TAB PO PRN ×2 (13:13→18:07)
[2021-04-30] MEDS ORDERED: EPOETIN ALFA-EPBX 20,000 UNIT/1 ML VIAL SUB-Q SCH (14:00)
[2021-05-01] MEDS: DIPHENOXYLATE/ATROPINE TAB PO PRN (00:38)
[2021-05-01] MEDS: HEPARIN 5,000 UNIT/1 ML VIAL SUB-Q SCH ×2 (01:11→09:28)
[2021-05-01 06:26] VITALS: BP 182/96
[2021-05-01 08:02] LABS: Calcium 8.7 mg/dL (8.4-10.2)
[2021-05-01 08:03] LABS: Hematocrit 24.2 % (35.5-45.6); Mean Corpuscular HGB Conc 33 % (32-34); Mean Corpuscular Volume 94 fl (84-94); Platelet Count 377 K/mm3 (140-440); Red Blood Count 2.57 M/mm3 (3.65-5.03)
[2021-05-01] MEDS: SODIUM BICARBONATE 650 MG TAB PO SCH (09:00)
[2021-05-01] MEDS ORDERED: FUROSEMIDE 100 MG in SODIUM CHLORIDE 0.9% 90 ML IV SCH (09:00)
[2021-05-01] MEDS: ACETAMINOPHEN 325 MG TAB PO PRN (09:01)
--- NOTE | 2021-05-01 09:09 | Discharge Summary ---
Providers - Providers Date of Admission: 04/21/21 09:00 Date of discharge: 05/01/21 Attending physician: JULIA ROMERO 04/20/21 11:43 Consult to Physician [CONS] Routine Comment: Consulting Provider: TYREE ALLEN Physician Instructions: Reason For Exam: acute renal failure 04/27/21 16:20 Consult to Physician [CONS] Routine Comment: Consulting Provider: JALEESA BENITES Physician Instructions: Reason For Exam: HIV recent diagnosis 04/27/21 16:23 Consult to Physician [CONS] Routine Comment: Consulting Provider: DIANNA JENSEN Physician Instructions: Reason For Exam: Persistent anemia Primary care physician: NON FERROUS MATERIAL HANDLER Hospitalization Reason for admission: N/V/D Condition: Fair Hospital course: 40-year-old male presented to the emergency department with complaint of a 2- week history of generalized weakness, nausea with vomiting, diarrhea, and unintended weight loss. He is a tobacco smoker but denied any illicit drug use. The patient reported a 40 pound weight loss unintentionally since this time as well. He has intermittent abdominal pain that occurs just prior to having a bowel movement. The patient also reported 5-6 episodes of diarrhea and/or loose stools per day, as well as some intermittent nausea with vomiting on admission. He otherwise denies any past medical history. The patient was found to have abnormal kidney function and hyperkalemia. Patient was admitted with diagnosis of acute kidney injury, hyperkalemia, anemia, diarrhea, and weight loss and a renal consultation was obtained. The patient had work-up for the renal failure which included a CT of the abdomen which revealed no hydronephrosis. The patient had a nonobstructing punctate bilateral nephrolithiasis. Renal ultrasound revealed signs of CKD. The patient's creatinine increased and stayed in the 5.5 range. The patient had other studies that were completed which included C3/C4 and Hep panel are negative. No schistocytes on peripheral smear. No thrombocytopenia. Patient reportedly with a baseline creatinine December 2018 of 1.2. Patient was noted to have HIV antibody which was positive. Therefore, infectious disease was consulted. Patient was felt to have a new diagnosis of HIV. Patient unsure when he may have been infected. Denies any IVDU or recent new sexual partners. Given his numerous GI symptoms, which may be attributable in part at least to HIV he may have been infected some time previously. Syphilis negative. Patient also had a COVID-19 test that was found to be positive. However, no shortness of breath and patient was not hypoxic on room air. ID felt that there was no need for acute treatment. The patient's creatinine stabilized and nephrology felt that there was no need for SIGN LANGUAGE TEACHER and the patient could be followed up as an outpatient. Infectious disease reported that the patient will need intermittent dosing of ART given the decrease GFR. ID also reported that since the patient is uninsured, would hold on initiating ART until he can obtain follow-up with [facility]. Patient lives in [place], discussed with him that closest clinic is [facility] which can provide free follow-up and treatment. ID Discussed with patient the importance of establishing care for HIV with [facility], as many of his symptoms may be at least partially secondary to the HIV. Kidney disease could be related to HIVAN, followed by ID. 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, unintentional weight loss secondary to HIV, hyperkalemia, Core Measure Documentation - Palliative Care Palliative Care/ Comfort Measures: Not Applicable - Core Measures Any of the following diagnoses?: none Exam - Constitutional Vitals: Temp Pulse Resp BP Pulse Ox 98.9 F 107 H 18 182/96 89 05/01/21 04:44 05/01/21 04:44 05/01/21 04:44 05/01/21 04:44 05/01/21 04:44 General appearance: Present: no acute distress, well-nourished - EENT Eyes: Present: PERRL ENT: hearing intact, clear oral mucosa - Neck Neck: Present: supple, normal ROM - Respiratory Respiratory effort: normal Respiratory: bilateral: CTA - Cardiovascular Heart Sounds: Present: S1 & S2. Absent: rub, click - Extremities Extremities: pulses symmetrical, No edema Peripheral Pulses: within normal limits - Abdominal General gastrointestinal: Present: soft, non-tender, non-distended, normal bowel sounds Male genitourinary: Present: normal - Integumentary Integumentary: Present: clear, warm, dry - Musculoskeletal Musculoskeletal: gait normal, strength equal bilaterally - Psychiatric Psychiatric: appropriate mood/affect, intact judgment & insight - Neurologic Neurologic: CNII-XII intact, moves all extremities Plan Activity: advance as tolerated Weight Bearing Status: Weight Bear as Tolerated Diet: regular Additional Instructions: Patient is to follow-up with the [facility] clinic. Patient lives in [place], discussed with him that closest clinic is [facility] which can provide free follow-up and treatment of HIV. Discussed with patient the importance of establishing care for HIV with [facility], as many of his symptoms may be at least partially secondary to the HIV. ART should be initiated with follow-up at the clinic. Assessment: The patient is a 40-year-old male with no significant past medical history who presented after 3 weeks of persistent nausea, vomiting, and diarrhea (karen roximately 4-5 episodes of loose stools per day) who on presentation was found to have a creatinine of 5.0. The patient admits to not having a primary care provider or following up with a physician regularly. He denies any history of hypertension, renal dysfunction/failure in his family, diabetes, or prior history of renal dysfunction. Nephrology was consulted for further management. Further investigation revealed that the patient's creatinine was 1.2 in 2019. Urine electrolytes were ordered and revealed the following: Urine osmolality 317, urine sodium 10, urine potassium one, urine chloride 10, and urine total protein 186. The patient underwent aggressive IV resuscitation to see if the etiology was prerenal in nature given the setting of decreased p.o. intake for approximately 2-3 weeks. Despite fluid resuscitation, the patient's creatinine continue to remain around 4.8. Aggressive IV resuscitation resulted in the patient developing iatrogenic hyponatremia (sodium 122) that resolved with fluid restriction at the next day (sodium 134). However, this fluid restriction led to worsening of the patient's creatinine from 4.9 to 5.3. During his hospitalization the patient was found to be positive for COVID-19; however, the patient did not require supplemental oxygen at that point in time. Therefore the decision was made not to initiate steroids and antivirals per COVID-19 protocol. Follow up with: HARPER SNOW MD [Primary Care Provider] - 3-5 Days JUSTO PEREZ MD [Staff Physician] - 7 Days Prescriptions: Sodium Bicarbonate 1,300 mg PO TID #90 tablet
--- NOTE | 2021-05-01 09:39 | Progress Note ---
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 not a candidate for a kidney biopsy due active HIV infection, COVID-19 infection and anemia. off IVF CT of Abdomen showed- No hydronephrosis. Non-obstructing punctate bilateral nephrolithiasis Renal US shows CKD signs Anemia-transfuse as needed, Epogen ordered for ACD, check Iron panel No T[employer] SAL[employer] PERSON indication right now Renally dose medications Strict I&O's daily Obtain daily weights Continue to monitor renal function closely Subjective Date of service: 05/01/21 Principal diagnosis: ARF Interval history: no overnight events Objective - Vital Signs Vital signs: Vital Signs - 12hr 04/30/21 04/30/21 04/30/21 22:00 22:32 23:32 Temperature Pulse Rate Respiratory 18 18 17 Rate Respiratory Rate [Head] Blood Pressure O2 Sat by Pulse 94 Oximetry 05/01/21 05/01/21 02:00 04:44 Temperature 98.9 F Pulse Rate 107 H Respiratory 18 Rate Respiratory 18 Rate [Head] Blood Pressure 182/96 O2 Sat by Pulse 89 Oximetry - Lab 05/01/21 06:32 05/01/21 06:32 Most recent lab results Calcium 8.7 mg/dL (8.4-10.2) 05/01/21 06:32 Phosphorus 4.70 mg/dL (2.5-4.5) H 04/28/21 06:56 Magnesium 1.50 mg/dL (1.7-2.3) L 04/23/21 05:45 Urine Creatinine 53.5 mg/dL (0.1-20.0) H 04/28/21 18:44 Urine Sodium 10 mmol/L 04/21/21 18:45 Urine Total Protein 186 mg/dL (5-11.8) H 04/21/21 18:45 Medications & Allergies - Medications Allergies/Adverse Reactions: Allergies No Known Allergies Allergy (Verified 04/20/21 08:43) Home Medications: Home Medications Medication Instructions Recorded Confirmed Last Taken Type Multivit-Min/Folic/Vit K/Lycop 1 tab PO QDAY 04/21/21 04/21/21 3 Days Ago History [Men's Multivitamin Tablet] ~04/18/21 Sodium Bicarbonate 1,300 mg PO TID #90 tablet 05/01/21 Unknown Rx Active Medications: Generic Name Dose Route Start Last Admin Trade Name Freq PRN Reason Stop Dose Admin Acetaminophen 650 mg 04/20/21 15:00 05/01/21 09:01 Acetaminophen 325 Mg Tab PO 650 mg Q4H PRN Administration Pain MILD(1-3)/Fever >100.5/LANGLEY Diphenoxylate HCl/Atropine 1 tab 04/26/21 17:11 05/01/21 00:38 Diphenoxylate/Atropine Tab PO 1 tab Q6H PRN Administration Diarrhea Epoetin Harris-epbx 20,000 unit 04/30/21 14:00 04/30/21 16:06 Epoetin Harris-Epbx 20,000 Unit/1 Ml Vial SUB-Q 20,000 unit MoWeFr SANTOS Administration Guaifenesin 200 mg 05/01/21 10:00 Guaifenesin 100 Mg/5 Ml Oral Liqd PO Q4H PRN Cough Heparin Sodium (Porcine) 5,000 unit 04/21/21 09:00 05/01/21 09:28 Heparin 5,000 Unit/1 Ml Vial SUB-Q Not Given Q8H SANTOS Ferric Sodium Gluconate 110 mls @ 100 mls/hr 04/28/21 14:00 04/30/21 10:01 Complex 125 mg/ Sodium IV 05/05/21 11:05 100 mls/hr Chloride DAILY SANTOS Administration Ondansetron HCl 4 mg 04/26/21 17:54 04/30/21 10:15 Ondansetron 4 Mg/2 Ml Inj IV 4 mg Q8H PRN Administration Nausea Sodium Bicarbonate 1,300 mg 04/30/21 14:00 05/01/21 09:00 Sodium Bicarbonate 650 Mg Tab PO 1,300 mg TID SANTOS Administration Sodium Chloride 10 ml 04/20/21 22:00 04/30/21 21:11 Sodium Chloride 0.9% 10 Ml Flush Syringe IV 10 ml BID SANTOS Administration Sodium Chloride 10 ml 04/20/21 15:00 Sodium Chloride 0.9% 10 Ml Flush Syringe IV PRN PRN LINE FLUSH Sodium Chloride 10 ml 04/20/21 15:00 02/01/22 23:19 Sodium Chloride 0.9% 50 Ml Ivpb IV 10 ml PRN PRN Administration FLUSH Sodium Polystyrene Sulfonate 30 gm 05/01/21 10:00 Sodium Polystyrene 15 Gm/60 Ml Oral Liqd PO 05/01/21 10:01 ONCE ONE
[2021-05-01] MEDS: SODIUM FERRIC GLUCON/SUCRO 125 MG in SODIUM CHLORIDE 0.9% 100 ML IV SCH (09:58)
[2021-05-01] MEDS ORDERED: SODIUM POLYSTYRENE 15 GM/60 ML ORAL LIQD PO ONE (10:00)
[2021-05-01] MEDS ORDERED: guaiFENesin 100 MG/5 ML ORAL LIQD PO PRN (10:00)
[2021-05-01 12:40] LABS: Basophils % (Manual) 0 % (0.0-1.8); Platelet Estimate Consistent w Auto; Total Cells Counted 100
[2021-05-01 12:41] LABS: Anisocytosis 1+
[2021-05-07 13:52] LABS: Abnormal Protein Band 1 SEE SCANNED RESULT; Abnormal Protein Band 2 SEE SCANNED RESULT; Albumin SEE SCANNED RESULT; Creatinine, Random Urine SEE SCANNED RESULT; Gamma Globulin SEE SCANNED RESULT; Protein/Creatinine Ratio SEE SCANNED RESULT
[2021-05-07 13:53] LABS: Interpretation SEE SCANNED RESULT
[2021-05-07 13:53] LABS: HIV-1 Antibody Differentiation SEE SCANNED RESULT; HIV-2 Antibody Differentiation SEE SCANNED RESULT
== END 2021-05-01 13:30 | disposition home or self-care (01) | DRG 682 ==
LOC: ED 07:23 → 4A 14:20 → OBSVTOIN 04-21 09:00 → 3A 04-24 20:30
PROVIDERS: ADMIT Internal Medicine; ATTEND Hospitalist
PROC: 30233N1 Transfusion of Nonautologous Red Blood Cells into Peripheral Vein, Percutaneous Approach (ICD-10-PCS; principal; 2021-04-22)
DX: N17.0 Acute kidney failure with tubular necrosis (principal); U07.1 COVID-19; J12.82 Pneumonia due to coronavirus disease 2019; Z68.1 Body mass index [BMI] 19.9 or less, adult; K52.9 Noninfective gastroenteritis and colitis, unspecified; E86.0 Dehydration; E87.5 Hyperkalemia; D64.9 Anemia, unspecified; F17.200 Nicotine dependence, unspecified, uncomplicated; R63.4 Abnormal weight loss; Z21 Asymptomatic human immunodeficiency virus [HIV] infection status; I12.9 Hypertensive chronic kidney disease with stage 1 through stage 4 chronic kidney disease, or unspecified chronic kidney disease; N18.9 Chronic kidney disease, unspecified
CPT/HCPCS: 36415; 71046; 74176; 76770; 80048; 80053; 80074; 81001; 82310; 82436; 82550; 82570; 82607; 82747; 82962; 83550; 83615; 83690; 83735; 83935; 83970; 84100; 84133; 84156; 84165; 84166; 84300; 84443; 84484; 85007; 85025; 85027; 86038; 86160; 86225; 86592; 86689; 86850; 86900; 86901; 86920; 87493; 87806; 89050; 93005; 93010; 99406; G0378; J3490; Q0162; J0885; J1644; J2405; J2916; J7030; J7070; J7120; P9016; U0003

== ENCOUNTER 2021-05-10 08:35 | Inpatient (IN) | payer OTHER ==
[2021-05-10] MEDS ORDERED: BENZONATATE 100 MG CAP PO ONE (09:39)
--- NOTE | 2021-05-10 09:55 | Emergency Department Report ---
- General Chief complaint: Weakness Stated complaint: SOB Time Seen by Provider: 05/10/21 09:27 Source: family Mode of arrival: Wheelchair Limitations: Physical Limitation - History of Present Illness Initial comments: 40-year-old male presented to the emergency department with complaint of generalized weakness, nausea with vomiting, diarrhea, and shortness of breath since discharge from the hospital May 01. Patient is recently admitted here April 20 until May 01 for similar symptoms. At time he was diagnosed with HIV, new onset renal failure, and COVID-19. No hypoxia during his admission. Patient now presents with a room air saturation 91% and dyspnea. Patient states he has followed up with wire loop machine operator outpatient but has not yet been seen by infectious disease doctor. Continues to have GI symptoms since discharge. Mild abdominal pain reported. Comptometrist Dr. Bergeron as per medical record - Related Data Home Medications Medication Instructions Recorded Confirmed Last Taken Multivit-Min/Folic/Vit K/Lycop 1 tab PO QDAY 04/21/21 04/21/21 3 Days Ago [Men's Multivitamin Tablet] ~04/18/21 Previous Rx's Medication Instructions Recorded Last Taken Type Sodium Bicarbonate 1,300 mg PO TID #90 tablet 05/01/21 Unknown Rx Allergies Allergy/AdvReac Type Severity Reaction Status Date / Time No Known Allergies Allergy Verified 04/20/21 08:43 ED Review of Systems ROS: Stated complaint: SOB Other details as noted in HPI Comment: All other systems reviewed and negative ED Past Medical Hx - Social History Smoking Status: Former Smoker - Medications Home Medications: Home Medications Medication Instructions Recorded Confirmed Last Taken Type Multivit-Min/Folic/Vit K/Lycop 1 tab PO QDAY 04/21/21 04/21/21 3 Days Ago History [Men's Multivitamin Tablet] ~04/18/21 Sodium Bicarbonate 1,300 mg PO TID #90 tablet 05/01/21 Unknown Rx ED Physical Exam - General Limitations: Physical Limitation - Other Other exam information: General: Thin, frail-appearing Head: Atraumatic Eyes: normal appearance ENT: Moist mucous membranes Neck: Normal appearance, no midline tenderness Chest: Tachypnea, respiratory distress, bilateral crackles CV: Tachycardic regular rhythm Abdomen: Soft, normal bowel sounds, mild generalized tenderness, nondistended, no rebound or guarding Back: Normal inspection Extremity: Normal inspection, full range of motion Neuro: Alert O x 3, generalized weakness with inability to sit up in the bed unassisted, no focal weakness ED Course Vital Signs 05/10/21 05/10/21 05/10/21 09:16 09:26 09:31 Temperature 97.9 F Pulse Rate 130 H 124 H Respiratory 20 38 H Rate Blood Pressure 152/113 O2 Sat by Pulse 91 96 97 Oximetry 05/10/21 05/10/21 09:45 09:51 Temperature 98.6 F Pulse Rate 123 H Respiratory 46 H Rate Blood Pressure 155/113 O2 Sat by Pulse 96 Oximetry - Consultations Consultation #1: 05/10/21 11:[address] Corral nephrology. He states patient will likely need dialysis. He will assess patient and make necessary arrangements ED Medical Decision Making - Lab Data Result diagrams: 05/10/21 09:45 05/10/21 09:45 Lab Results 05/10/21 05/10/21 05/10/21 Range/Units 09:45 09:45 09:45 WBC 6.8 (4.5-11.0) K/mm3 RBC 2.89 L (3.65-5.03) M/mm3 Hgb 8.8 L (11.8-15.2) gm/dl Hct 26.9 L (35.5-45.6) % MCV 93 (84-94) fl MCH 30 (28-32) pg MCHC 33 (32-34) % RDW 13.7 (13.2-15.2) % Plt Count 367 (140-440) K/mm3 D-Dimer (0-234) ng/mlDDU Sodium 137 (137-145) mmol/L Potassium 4.9 (3.6-5.0) mmol/L Chloride 97.4 L (98-107) mmol/L Carbon Dioxide 22 (22-30) mmol/L Anion Gap 23 mmol/L BUN 100 H (9-20) mg/dL Creatinine 8.4 H (0.8-1.3) mg/dL Estimated GFR 9 ml/min BUN/Creatinine Ratio 12 % Glucose 100 (75-100) mg/dL Calcium 8.6 (8.4-10.2) mg/dL Ferritin (30.0-300.0) ng/mL Total Bilirubin 0.20 (0.1-1.2) mg/dL AST 26 (5-40) units/L ALT 13 (7-56) units/L Alkaline Phosphatase 79 (35-129) units/L Lactate Dehydrogenase 600 H (91-180) units/L Total Creatine Kinase 31 L (55-170) units/L CK-MB (CK-2) < 1.0 (0.0-4.0) ng/mL CK-MB (CK-2) Rel Index 3.2 (0-4) Troponin T < 0.010 (0.00-0.029) ng/mL C-Reactive Protein 8.90 H (0.00-1.30) mg/dL NT-Pro-B Natriuret Pep 4065 H (0-450) pg/mL Total Protein 7.6 (6.3-8.2) g/dL Albumin 2.4 L (3.9-5) g/dL Albumin/Globulin Ratio 0.5 % TSH 2.390 (0.270-4.200) mlU/mL Free T4 0.94 (0.76-1.46) ng/dL 05/10/21 05/10/21 05/10/21 Range/Units 09:45 09:45 09:45 WBC (4.5-11.0) K/mm3 RBC (3.65-5.03) M/mm3 Hgb (11.8-15.2) gm/dl Hct (35.5-45.6) % MCV (84-94) fl MCH (28-32) pg MCHC (32-34) % RDW (13.2-15.2) % Plt Count (140-440) K/mm3 D-Dimer 730.16 H (0-234) ng/mlDDU Sodium (137-145) mmol/L Potassium (3.6-5.0) mmol/L Chloride (98-107) mmol/L Carbon Dioxide (22-30) mmol/L Anion Gap mmol/L BUN (9-20) mg/dL Creatinine (0.8-1.3) mg/dL Estimated GFR ml/min BUN/Creatinine Ratio % Glucose 98 (75-100) mg/dL Calcium (8.4-10.2) mg/dL Ferritin 1426.0 H (30.0-300.0) ng/mL Total Bilirubin (0.1-1.2) mg/dL AST (5-40) units/L ALT (7-56) units/L Alkaline Phosphatase (35-129) units/L Lactate Dehydrogenase 623 H (91-180) units/L Total Creatine Kinase (55-170) units/L CK-MB (CK-2) (0.0-4.0) ng/mL CK-MB (CK-2) Rel Index (0-4) Troponin T (0.00-0.029) ng/mL C-Reactive Protein 9.00 H (0.00-1.30) mg/dL NT-Pro-B Natriuret Pep (0-450) pg/mL Total Protein (6.3-8.2) g/dL Albumin (3.9-5) g/dL Albumin/Globulin Ratio % TSH (0.270-4.200) mlU/mL Free T4 (0.76-1.46) ng/dL - EKG Data -: EKG Interpreted by Mt EKG shows normal: sinus rhythm, ST-T waves Rate: tachycardia (121) - Radiology Data Radiology results: report reviewed CHEST 1 VIEW 05/10/2021 9:05 AM INDICATION / CLINICAL INFORMATION: sob, cough, weakness, hypoxia, recent covid. COMPARISON: 04/20/2021 FINDINGS: SUPPORT DEVICES: None. HEART / MEDIASTINUM: No significant abnormality. LUNGS / PLEURA: Severe worsening of diffuse bilateral pulmonary opacities. No pneumothorax. ADDITIONAL FINDINGS: No significant additional findings. IMPRESSION: 1. Severe worsening of diffuse bilateral pulmonary opacities that could indicate worsening infection, ARDS, or edema. - Medical Decision Making 40-year-old male with recent diagnosis of HIV, COVID-19, and renal failure presents to the hospital with worsening symptoms. X-ray now shows worsening bilateral opacities suggestive of pulmonary edema versus infiltrate. Given worsening kidney function I highly suspect that patient has pulmonary edema. Patient was treated with Lasix, nitroglycerin paste, supplemental oxygen. Patient also received antibiotics for healthcare associated pneumonia given recent admission and Covid diagnosis. Decadron provided for new hypoxia. Repeat Covid test ordered. Patient also has known HIV with unknown CD4 count. case discussed with wire loop machine operator Who will assess need for initiation of dialysis. Critical Care Time: Yes Critical care time in (mins) excluding proc time.: 35 Critical care attestation.: If time is entered above; I have spent that time in minutes in the direct care of this critically ill patient, excluding procedure time. Critical Care Time: 35 Minutes of critical care time excluding procedures were used in the care of the patient. I came immediately to the bedside upon patient's arrival. I discussed treatment plan with the nursing team members. I reviewed electronic record. Patient required multiple interventions and reassessments. Spoke with hospitalist and consultants in order to expedite care. ED Disposition Clinical Impression: Acute pulmonary edema, Acute respiratory failure with hypoxia, COVID-19, Acute on chronic renal failure, Pulmonary infiltrate, HIV (human immunodeficiency virus infection), Anemia, Diarrhea Disposition: ADMITTED INPATIENT Is pt being admited?: Yes Condition: Stable Instructions: Pulmonary Edema (ED) Referrals: PRIMARY CARE, [Primary Care Provider] - 3-5 Days
[2021-05-10 10:05] LABS: Hematocrit 26.9 % (35.5-45.6); Hemoglobin 8.8 gm/dl (11.8-15.2); Mean Corpuscular HGB Conc 33 % (32-34); Mean Corpuscular Volume 93 fl (84-94); Platelet Count 367 K/mm3 (140-440); Red Blood Count 2.89 M/mm3 (3.65-5.03); Red Cell Distribution Width 13.7 % (13.2-15.2)
[2021-05-10] MEDS ORDERED: CEFEPIME/NS 2 GM/100 ML 2 GM/100 ML BAG IV ONE (10:30)
[2021-05-10] MEDS ORDERED: dexAMETHasone 4 MG/ML VIAL IV ONE (10:31)
[2021-05-10 10:54] LABS: Alanine Aminotransferase 13 units/L (7-56); Albumin 2.4 g/dL (3.9-5); Blood Urea Nitrogen 100 mg/dL (9-20); Calcium 8.6 mg/dL (8.4-10.2); Hemolysis Index 1
[2021-05-10 10:56] LABS: BUN/Creatinine Ratio 12; Creatine Kinase MB < 1.0 ng/mL (0.0-4.0)
[2021-05-10] MEDS ORDERED: VANCOMYCIN PHARMACY TO DOSE IV SCH (11:00)
[2021-05-10] MEDS ORDERED: VANCOMYCIN 1,250 MG in SODIUM CHLORIDE 0.9% 500 ML 500 ML IV ONE (11:00)
[2021-05-10 11:06] LABS: Free T4 (Free Thyroxine) 0.94 ng/dL (0.76-1.46)
[2021-05-10] MEDS ORDERED: NITROGLYCERIN 2% OINT 1 GM TP ONE (11:17)
[2021-05-10] MEDS ORDERED: FUROSEMIDE 40 MG/4 ML INJ IV ONE (11:17)
--- NOTE | 2021-05-10 11:24 | History and Physical Report ---
History of Present Illness Chief complaint: I feel weak History of present illness: 40 YO Male with HIV Infection/AIDS newly diagnosed, Malnutrition, Coronavirus Infection diagnosed 2 weeks ago, BILLIE presents to ED for evaluation. Patient reports "I feel weak". Patient states that he has experienced generalized weakn ess, diminished oral intake, shortness of breath, fatigue, malaise, body aches over the past 2 weeks with persistent and worsening symptoms over the same timeframe. Patient is currently bedbound and nonambulatory and requires 5/6 assistance with activities of daily living. Patient transported to [facility] via private vehicle for further care and evaluation of the aforementioned symptoms. The patient was seen and evaluated in the emergency department. All lab and imaging studies reviewed. Patient found to have a pulse oximetry of 88% on room air with exertion which is consistent with acute hypoxemic respiratory failure. Patient was found sitting on bed, using accessory muscles to breathe with a respiratory rate in the mid 40s. Patient also found to have diminished cognition with lethargy. Chest x-ray revealed bilateral pneumonia complicated by sepsis. Patient admitted to medical floor and initiated on sepsis protocol, pneumonia protocol as well as coronavirus protocol. Patient denies fever, chills, chest pain, palpitation, skin rash, recent ill contacts, or known exposure to COVID-19. Prior admission on 04/21/2021 reviewed. All medication listed at time of admission has been reconciled. Advanced care planning conducted in ED. Past History Past Medical History: HIV/AIDS, other (See HPI) Past Surgical History: No surgical history, Other (Reviewed) Social history: single, other (Lives with girlfriend) Family history: hypertension Medications and Allergies Allergies Allergy/AdvReac Type Severity Reaction Status Date / Time No Known Allergies Allergy Verified 04/20/21 08:43 Home Medications Medication Instructions Recorded Confirmed Last Taken Type Multivit-Min/Folic/Vit K/Lycop 1 tab PO QDAY 04/21/21 04/21/21 3 Days Ago History [Men's Multivitamin Tablet] ~04/18/21 Sodium Bicarbonate 1,300 mg PO TID #90 tablet 05/01/21 Unknown Rx Active Meds: Active Medications Vancomycin HCl 1,250 mg/ (Sodium Chloride) 525 mls @ 333 mls/hr IV ONCE ONE; Protocol Stop: 05/10/21 12:34 Review of Systems Constitutional: weight loss, weakness, malaise, lethargy, no weight gain, no fever, no chills Ears, nose, mouth and throat: no ear pain, no ear discharge, no decreased h earing, no nasal congestion Cardiovascular: shortness of breath, no chest pain, no palpitations, no edema Respiratory: cough, shortness of breath, no cough with sputum, no excessive sputum, no hemoptysis Gastrointestinal: diarrhea, no abdominal pain, no nausea, no vomiting Genitourinary Male: no hematuria, no flank pain, no discharge, no urinary frequency, no urinary hesitancy Rectal: no pain, no incontinence, no bleeding Musculoskeletal: no neck stiffness, no neck pain, no arm numbness/tingling, no low back pain, no leg numbness/tingling Integumentary: no rash, no pruritis, no sores, no wounds Neurological: no head injury, no paralysis, no parathesias, no tingling, no syncope, no tremors Psychiatric: no anxiety, no memory loss, no sleep disturbances, no insomnia, no hypersomnia, no change in libido, no suicidal ideation Endocrine: no cold intolerance, no polyphagia, no excessive thirst, no polydipsia, no excessive sweating Hematologic/Lymphatic: no easy bruising, no easy bleeding Allergic/Immunologic: no urticaria, no allergic rhinitis Exam - Constitutional Vitals: Temp Pulse Resp BP Pulse Ox 98.6 F 123 H 46 H 155/113 96 05/10/21 09:51 05/10/21 09:45 05/10/21 09:45 05/10/21 09:45 05/10/21 09:45 General appearance: Present: mild distress, cachectic - EENT Eyes: Present: PERRL ENT: hearing intact, clear oral mucosa - Neck Neck: Present: supple, normal ROM - Respiratory Respiratory effort: labored Respiratory: bilateral: diminished, rhonchi - Cardiovascular Rhythm: other (Tachycardia) Heart Sounds: Present: S1 & S2. Absent: rub, click - Extremities Extremities: pulses symmetrical, No edema Peripheral Pulses: abnormal (Capillary refill greater than 3.5 seconds) - Abdominal General gastrointestinal: Present: soft, non-tender, non-distended, normal bowel sounds Male genitourinary: Present: normal - Integumentary Integumentary: Present: clear, dry, clammy, decreased turgor - Musculoskeletal Musculoskeletal: generalized weakness - Psychiatric Psychiatric: appropriate mood/affect, intact judgment & insight - Neurologic Neurologic: CNII-XII intact, no focal deficits, moves all extremities, no gait normal HEART Score - HEART Score Troponin: Troponin T < 0.010 ng/mL (0.00-0.029) 05/10/21 09:45 Results - Labs CBC & Chem 7: 05/10/21 09:45 05/10/21 09:45 Labs: Abnormal lab results 05/10/21 05/10/21 05/10/21 Range/Units 09:45 09:45 09:45 RBC 2.89 L (3.65-5.03) M/mm3 Hgb 8.8 L (11.8-15.2) gm/dl Hct 26.9 L (35.5-45.6) % D-Dimer 730.16 H (0-234) ng/mlDDU Chloride 97.4 L (98-107) mmol/L BUN 100 H (9-20) mg/dL Creatinine 8.4 H (0.8-1.3) mg/dL Ferritin (30.0-300.0) ng/mL Lactate Dehydrogenase 600 H (91-180) units/L Total Creatine Kinase 31 L (55-170) units/L C-Reactive Protein 8.90 H (0.00-1.30) mg/dL NT-Pro-B Natriuret Pep 4065 H (0-450) pg/mL Albumin 2.4 L (3.9-5) g/dL 05/10/21 05/10/21 Range/Units 09:45 09:45 RBC (3.65-5.03) M/mm3 Hgb (11.8-15.2) gm/dl Hct (35.5-45.6) % D-Dimer (0-234) ng/mlDDU Chloride (98-107) mmol/L BUN (9-20) mg/dL Creatinine (0.8-1.3) mg/dL Ferritin 1426.0 H (30.0-300.0) ng/mL Lactate Dehydrogenase 623 H (91-180) units/L Total Creatine Kinase (55-170) units/L C-Reactive Protein 9.00 H (0.00-1.30) mg/dL NT-Pro-B Natriuret Pep (0-450) pg/mL Albumin (3.9-5) g/dL Assessment and Plan - Patient Problems (1) Sepsis Current Visit: Yes Status: Acute Qualifiers: Acute respiratory failure type: with hypoxia Plan to address problem: Sepsis protocol: CBC, CMP, IV fluid resuscitation therapy, IV antibiotic therapy, blood culture, serial lactic acid level, maintain mean artery pressure greater than equal 65, monitor fluid balance (2) Pneumonia Current Visit: Yes Status: Acute Plan to address problem: Pneumonia protocol: Chest x-ray, CBC, CMP, supplemental oxygen, pulse oximetry, nebulizer therapy, blood culture. (3) Malnutrition Current Visit: Yes Status: Acute Qualifiers: Malnutrition type: protein-calorie malnutrition Protein-calorie malnutrition severity: moderate Qualified Code(s): E44.0 - Moderate protein- calorie malnutrition Plan to address problem: Increase protein intake, dietary supplementation when awake and alert only. (4) Acute respiratory failure with hypoxia Current Visit: Yes Status: Acute Plan to address problem: Chest x-ray, supplemental oxygen, pulse oximetry, nebulizer therapy, will consider high flow supplemental oxygen if patient is unable to maintain pulse oximetry on supplemental oxygen via nasal cannula. (5) COVID-19 Current Visit: Yes Status: Acute Plan to address problem: Coronavirus protocol: IV antibiotic therapy, IV steroid therapy, vitamin C therapy, vitamin D therapy, zinc therapy, prophylactic anticoagulation. (6) HIV (human immunodeficiency virus infection) Current Visit: Yes Status: Acute Qualifiers: HIV symptom status: symptomatic Qualified Code(s): B20 - Human immunodeficiency virus [HIV] disease Plan to address problem: Infectious disease service consulted. Patient lost to outpatient follow-up. Patient recently diagnosed with HIV infection with suspected AIDS complicated by nephropathy. Continue supportive care. (7) End stage renal disease Current Visit: Yes Status: Acute Plan to address problem: CKD with suspected progression to end-stage renal disease. Nephrology team consulted in ED. Dialysis as per renal team. Further renal care as per renal team. IV fluid resuscitation therapy, repeat BMP in a.m. Monitor fluid balance. Avoid nephrotoxic agents. (8) DVT prophylaxis Current Visit: Yes Status: Acute Plan to address problem: SCD to bilateral lower extremities while in bed, prophylactic anticoagulation (9) Advance care planning Current Visit: Yes Status: Acute Plan to address problem: Disease education conducted, care plan discussed, diagnoses discussed, prognosis discussed. Patient is full code. Patient acknowledges understanding and agreement with care plan. Patient girlfriend Zarina Gordon [phone] was notified. Patient tung Anderson was notified. Patient mother knows of patient's HIV status. Patient mother informed of patient poor prognosis as well as high risk for development of multiple organ system failure, worsening sepsis, and worsening respiratory failure which may result in intubation and placement on life support. Patient has overall poor prognosis. Patient mother acknowledges understanding assessment as well as agreement with care plan. +30 minutes.
[2021-05-10] MEDS ORDERED: SODIUM CHLORIDE 0.9% 1000 ML IV SOLN IV ONE (11:26)
[2021-05-10] MEDS ORDERED: HYDROmorphone 1 MG/1 ML INJ IV PRN (11:26)
[2021-05-10] MEDS ORDERED: ACETAMINOPHEN 325 MG TAB PO PRN (11:26)
--- NOTE | 2021-05-10 11:49 | Progress Note ---
Assessment and Plan (1) Sepsis (2) Pneumonia (3) Malnutrition (4) Acute respiratory failure with hypoxia (5) COVID-19 (6) HIV (human immunodeficiency virus infection) (7) Progressive CKD likely ESRD kidney disease could be related to HIVAN Renal US showed CKD signs Will discuss dialysis initiation with patient Renally dose medications Strict I&O's daily Obtain daily weights Continue to monitor renal function closely Subjective Date of service: 05/10/21 Interval history: Readmitted with weaknes. Has also had diminished oral intake, shortness of br eath, fatigue, malaise, body aches. Has progressive renal failure. Objective - Exam Narrative Exam: General appearance: Present: mild distress, cachectic - EENT Eyes: Present: PERRL ENT: hearing intact, clear oral mucosa - Neck Neck: Present: supple, normal ROM - Respiratory Respiratory effort: labored Respiratory: bilateral: diminished, rhonchi - Cardiovascular Rhythm: other (Tachycardia) Heart Sounds: Present: S1 & S2. Absent: rub, click - Extremities Extremities: pulses symmetrical, No edema Peripheral Pulses: abnormal (Capillary refill greater than 3.5 seconds) - Abdominal General gastrointestinal: Present: soft, non-tender, non-distended, normal bowel sounds Male genitourinary: Present: normal - Integumentary Integumentary: Present: clear, dry, clammy, decreased turgor - Musculoskeletal Musculoskeletal: generalized weakness - Psychiatric Psychiatric: appropriate mood/affect, intact judgment & insight - Neurologic Neurologic: CNII-XII intact, no focal deficits, moves all extremities, no gait normal - Vital Signs Vital signs: Vital Signs - 12hr 05/10/21 05/10/21 05/10/21 09:16 09:26 09:31 Temperature 97.9 F Pulse Rate 130 H 124 H Respiratory 20 38 H Rate Blood Pressure 152/113 O2 Sat by Pulse 91 96 97 Oximetry 05/10/21 05/10/21 09:45 09:51 Temperature 98.6 F Pulse Rate 123 H Respiratory 46 H Rate Blood Pressure 155/113 O2 Sat by Pulse 96 Oximetry - Lab 05/10/21 09:45 05/10/21 09:45 Most recent lab results Calcium 8.6 mg/dL (8.4-10.2) 05/10/21 09:45 Medications & Allergies - Medications Allergies/Adverse Reactions: Allergies No Known Allergies Allergy (Verified 04/20/21 08:43) Home Medications: Home Medications Medication Instructions Recorded Confirmed Last Taken Type Multivit-Min/Folic/Vit K/Lycop 1 tab PO QDAY 04/21/21 04/21/21 3 Days Ago History [Men's Multivitamin Tablet] ~04/18/21 Sodium Bicarbonate 1,300 mg PO TID #90 tablet 05/01/21 Unknown Rx Active Medications: Generic Name Dose Route Start Last Admin Trade Name Freq PRN Reason Stop Dose Admin Acetaminophen 650 mg 05/10/21 11:26 Acetaminophen 325 Mg Tab PO Q4H PRN Pain MILD(1-3)/Fever >100.5/[place] Acetaminophen 650 mg 05/10/21 11: Acetaminophen 325 Mg Tab PO Q6H PRN Pain, Mild (1-3) Albuterol 2.5 mg 05/10/21 11: Albuterol 2.5 Mg/3 Ml Nebu IH Q4HRT PRN Shortness Of Breath Ascorbic Acid 500 mg 05/10/21 22:00 Ascorbic Acid 500 Mg Tab PO BID [facility] Cholecalciferol 1,000 unit 05/11/21 10:00 Cholecalciferol (Vit D3) 400 Unit Tab PO QDAY [facility] Heparin Sodium (Porcine) 5,000 unit 05/10/21 22:00 Heparin 5,000 Unit/1 Ml Vial SUB-Q Q12HR [facility] Hydromorphone HCl 0.25 mg 05/10/21 11:26 Hydromorphone 1 Mg/1 Ml Inj IV Q4H PRN Pain, Moderate (4-6) Hydromorphone HCl 0.5 mg 05/10/21 11:26 Hydromorphone 1 Mg/1 Ml Inj IV Q23H PRN Pain , Severe (7-10) Vancomycin HCl 1,250 mg/ 525 mls @ 333 mls/hr 05/10/21 11:00 Sodium Chloride IV 05/10/21 12:34 ONCE ONE Protocol Ceftriaxone Sodium 2 gm in 100 mls @ 200 mls/hr 05/10/21 12:00 Rocephin/Ns 2 Gm/100 Ml IV Q24H [facility] Protocol Azithromycin 500 mg in 250 mls @ 250 mls/hr 05/10/21 12:00 Zithromax/Ns IV Q24H [facility] Protocol Methylprednisolone Sodium Succinate 40 mg 05/10/21 14:00 Methylprednisolone Sod Succinate 40 Mg/1 Ml Inj IV Q8HR [facility] Multivitamins/Minerals 1 each 05/11/21 10:00 Multivitamins,Ther W-Minerals Tab PO QDAY [facility] Ondansetron HCl 4 mg 05/10/21 11:26 Ondansetron 4 Mg/2 Ml Inj IV Q8H PRN Nausea And Vomiting Oxycodone/Acetaminophen 1 tab 05/10/21 11:26 Oxycodone /Acetaminophen 5-325mg Tab PO Q16H PRN Pain, Moderate (4-6) Sodium Bicarbonate 1,300 mg 05/10/21 14:00 Sodium Bicarbonate 650 Mg Tab PO TID [facility] Sodium Chloride 10 ml 05/10/21 22:00 Sodium Chloride 0.9% 10 Ml Flush Syringe IV BID [facility] Sodium Chloride 10 ml 05/10/21 11:26 Sodium Chloride 0.9% 10 Ml Flush Syringe IV PRN PRN LINE FLUSH Zinc Sulfate 220 mg 05/10/21 22:00 Zinc Sulfate 220 Mg Cap PO BID [facility]
[2021-05-10] MEDS: AZITHROMYCIN/NS 500 MG/250 ML 500 MG/250 ML BAG IV SCH (13:45)
--- NOTE | 2021-05-10 14:48 | Consultation ---
History of Present Illness - Reason for Consult Consult date: 05/10/21 HIV, COVID Requesting physician: HETAL PALOMO - History of Present Illness The patient is a 40-year-old male who was recently hospitalized and discharged earlier this month with a new diagnosis of HIV and suspected AIDS along with renal dysfunction. He was also diagnosed with COVID-19 during that admission. He was recommended outpatient follow-up with [facility]. Now readmitted with generalized weakness, worsening shortness of breath. Labs showed normal WBC ferritin 1426, LDH 623, CRP 9.0. Review of Systems: Per HPI Past History Past Medical History: HIV/AIDS, other (See HPI) Past Surgical History: No surgical history, Other (Reviewed) Social history: single, other (Lives with girlfriend) Family history: hypertension Medications and Allergies Allergies Allergy/AdvReac Type Severity Reaction Status Date / Time No Known Allergies Allergy Verified 04/20/21 08:43 Home Medications Medication Instructions Recorded Confirmed Last Taken Type Multivit-Min/Folic/Vit K/Lycop 1 tab PO QDAY 04/21/21 04/21/21 3 Days Ago History [Men's Multivitamin Tablet] ~04/18/21 Sodium Bicarbonate 1,300 mg PO TID #90 tablet 05/01/21 Unknown Rx Active Meds: Active Medications Acetaminophen (Acetaminophen 325 Mg Tab) 650 mg PO Q4H PRN PRN Reason: Pain MILD(1-3)/Fever >100.5/[place] Acetaminophen (Acetaminophen 325 Mg Tab) 650 mg PO Q6H PRN PRN Reason: Pain, Mild (1-3) Albuterol (Albuterol 2.5 Mg/3 Ml Nebu) 2.5 mg IH Q4HRT PRN PRN Reason: Shortness Of Breath Ascorbic Acid (Ascorbic Acid 500 Mg Tab) 500 mg PO BID [facility] Atovaquone (Atovaquone 750 Mg/5 Ml Oral Susp) 750 mg PO BID [facility] Cholecalciferol (Cholecalciferol (Vit D3) 400 Unit Tab) 1,000 unit PO QDAY [facility] Darunavir (Darunavir 800 Mg Tab) 800 mg PO QDAY [facility] Dolutegravir Sodium (Dolutegravir 50 Mg Tab) 50 mg PO QDAY [facility] Heparin Sodium (Porcine) (Heparin 5,000 Unit/1 Ml Vial) 5,000 unit SUB-Q Q12HR [facility] Hydromorphone HCl (Hydromorphone 1 Mg/1 Ml Inj) 0.25 mg IV Q4H PRN PRN Reason: Pain, Moderate (4-6) Hydromorphone HCl (Hydromorphone 1 Mg/1 Ml Inj) 0.5 mg IV Q23H PRN PRN Reason: Pain , Severe (7-10) Ceftriaxone Sodium (Rocephin/Ns 2 Gm/100 Ml) 2 gm in 100 mls @ 200 mls/hr IV Q24H [facility]; Protocol Azithromycin (Zithromax/Ns) 500 mg in 250 mls @ 250 mls/hr IV Q24H [facility]; Protocol Last Admin: 05/10/21 13:45 Dose: 250 mls/hr Lamivudine (Lamivudine 50 Mg/5 Ml Oral Liqd) 100 mg PO DAILY [facility] Methylprednisolone Sodium Succinate (Methylprednisolone Sod Succinate 40 Mg/1 Ml Inj) 40 mg IV Q8HR [facility] Multivitamins/Minerals (Multivitamins,Ther W-Minerals Tab) 1 each PO QDAY [facility] Ondansetron HCl (Ondansetron 4 Mg/2 Ml Inj) 4 mg IV Q8H PRN PRN Reason: Nausea And Vomiting Oxycodone/Acetaminophen (Oxycodone /Acetaminophen 5-325mg Tab) 1 tab PO Q16H PRN PRN Reason: Pain, Moderate (4-6) Ritonavir (Ritonavir 100 Mg Tab) 100 mg PO QDAY [facility] Sodium Bicarbonate (Sodium Bicarbonate 650 Mg Tab) 1,300 mg PO TID [facility] Sodium Chloride (Sodium Chloride 0.9% 10 Ml Flush Syringe) 10 ml IV BID [facility] Sodium Chloride (Sodium Chloride 0.9% 10 Ml Flush Syringe) 10 ml IV PRN PRN PRN Reason: LINE FLUSH Zinc Sulfate (Zinc Sulfate 220 Mg Cap) 220 mg PO BID [facility] Physical Examination - Physical Exam Narrative exam: Physical Exam (reviewed in chart to minimize risk of transmission) Constitutional: deferred Head, Ears, Nose: deferred Eyes: deferred Neck: deferred Oral: deferred Cardiovascular: deferred Respiratory: deferred GI: deferred Musculoskeletal: deferred Skin: deferred Hem/Lymphatic: deferred Psych: deferred Neurological: deferred - Constitutional Vitals: Vital Signs Temp Pulse Resp BP Pulse Ox 98.6 F 110 H 33 H 153/112 99 05/10/21 09:51 02/14/22 14:15 05/10/21 14:15 05/10/21 14:15 05/10/21 14:15 Temperature -Last 24 Hours Temperature 98.6 F Temperature 97.9 F Results - Labs CBC & Chem 7: 05/10/21 09:45 05/10/21 09:45 Labs: Abnormal lab results 05/10/21 05/10/21 05/10/21 Range/Units 09:45 09:45 09:45 RBC 2.89 L (3.65-5.03) M/mm3 Hgb 8.8 L (11.8-15.2) gm/dl Hct 26.9 L (35.5-45.6) % D-Dimer 730.16 H (0-234) ng/mlDDU Chloride 97.4 L (98-107) mmol/L BUN 100 H (9-20) mg/dL Creatinine 8.4 H (0.8-1.3) mg/dL Ferritin (30.0-300.0) ng/mL Lactate Dehydrogenase 600 H (91-180) units/L Total Creatine Kinase 31 L (55-170) units/L C-Reactive Protein 8.90 H (0.00-1.30) mg/dL NT-Pro-B Natriuret Pep 4065 H (0-450) pg/mL Albumin 2.4 L (3.9-5) g/dL 05/10/21 05/10/21 Range/Units 09:45 09:45 RBC (3.65-5.03) M/mm3 Hgb (11.8-15.2) gm/dl Hct (35.5-45.6) % D-Dimer (0-234) ng/mlDDU Chloride (98-107) mmol/L BUN (9-20) mg/dL Creatinine (0.8-1.3) mg/dL Ferritin 1426.0 H (30.0-300.0) ng/mL Lactate Dehydrogenase 623 H (91-180) units/L Total Creatine Kinase (55-170) units/L C-Reactive Protein 9.00 H (0.00-1.30) mg/dL NT-Pro-B Natriuret Pep (0-450) pg/mL Albumin (3.9-5) g/dL Assessment and Plan Cultures: 05/10/2021 blood culture: In process Previous admission labs reviewed: Negative for syphilis, C. difficile PCR, hepatitis panel 04/24/2021 COVID-19 PCR: Positive A/P: 40-year-old male who was recently hospitalized and discharged earlier this month with a new diagnosis of HIV and suspected AIDS along with renal dysfunction. He was also diagnosed with COVID-19 during that admission. He was recommended outpatient follow-up with [facility] department. Now readmitted with generalized weakness, worsening shortness of breath: #HIV, suspected AIDS, ?HIVAN #COVID-19: Initially tested positive on 04/24/2021, not a candidate for Remdesivir. #Acute hypoxic resp failure: ?COVID v/s renal failure v/s PCP pneumonia. #Acute renal failure: ?HIVAN. Nephrology following. Recs: -Check HIV viral load, CD4 count, genotype -LDH, 1 3 beta D glucan ordered -Empiric PO Mepron to cover PJP, avoiding Bactrim due to renal failure -Given hypoxia, agree with steroids -Given possibility of HIVAN, will initiate ART: lamivudine 100 mg daily, darunavir + ritonavir, dolutegravir -serum CrAg in AM Ramy Harper MD, FAC[facility]ENN[facility] O: [phone] F: [phone]
[2021-05-10] MEDS: methylPREDNISolone Sod Succinate 40 MG/1 ML INJ IV SCH ×2 (15:00→22:00)
[2021-05-10] MEDS: SODIUM BICARBONATE 650 MG TAB PO SCH ×2 (15:00→22:00)
[2021-05-10] MEDS: cefTRIAXone/NS 2 GM/100 ML 2 GM/100 ML BAG IV SCH (15:00)
[2021-05-10] MEDS: RITONAVIR 100 MG TAB PO SCH (15:15)
[2021-05-10] MEDS: DARUNAVIR 800 MG TAB PO SCH (15:15)
[2021-05-10 15:50] LABS: RBC,Urine < 1.0 /HPF (0.0-6.0)
[2021-05-10] MEDS ORDERED: SODIUM CHLORIDE 0.9% 100 ML IV PRN (15:58)
[2021-05-10] MEDS: ATOVAQUONE 750 MG/5 ML ORAL SUSP PO SCH ×2 (16:00→22:00)
[2021-05-10] MEDS: DOLUTEGRAVIR 50 MG TAB PO SCH (16:00)
[2021-05-10 16:12] LABS: Bilirubin,Urine Negative (Negative); Blood,Urine Negative (Negative); Color,Urine Yellow (Yellow)
[2021-05-10 19:59] LABS: Anisocytosis 1+; Basophils % (Manual) 0 % (0.0-1.8); Eosinophils % (Manual) 0 % (0.0-4.3); Platelet Estimate Consistent w Auto; Total Cells Counted 100
[2021-05-10] MEDS: ZINC SULFATE 220 MG CAP PO SCH (22:00)
[2021-05-10] MEDS: BUMETANIDE 1 MG/4 ML INJ IV SCH (22:00)
[2021-05-10] MEDS: ASCORBIC ACID 500 MG TAB PO SCH (22:00)
--- NOTE | 2021-05-10 23:52 | XRay Report ---
CHEST 1 VIEW 05/10/2021 9:05 AM INDICATION / CLINICAL INFORMATION: sob, cough, weakness, hypoxia, recent covid. COMPARISON: 04/20/2021 FINDINGS: SUPPORT DEVICES: None. HEART / MEDIASTINUM: No significant abnormality. LUNGS / PLEURA: Severe worsening of diffuse bilateral pulmonary opacities. No pneumothorax. ADDITIONAL FINDINGS: No significant additional findings. IMPRESSION: 1. Severe worsening of diffuse bilateral pulmonary opacities that could indicate worsening infection, ARDS, or edema. Signer Name: Tristan Stewart MD Signed: 05/10/2021 10:15 AM Workstation Name: [id number]
[2021-05-10] MEDS: HEPARIN 5,000 UNIT/1 ML VIAL SUB-Q SCH (23:53)
[2021-05-11] MEDS: ALBUTEROL 2.5 MG/3 ML NEBU IH PRN (04:32)
[2021-05-11] MEDS: methylPREDNISolone Sod Succinate 40 MG/1 ML INJ IV SCH ×3 (05:29→22:12)
[2021-05-11] MEDS ORDERED: ALPRAZolam 0.25 MG TAB PO ONE (06:32)
[2021-05-11] MEDS ORDERED: LIDOCAINE 1%/EPINEPHRINE 1:100,000 VIAL (20 ML) INFILTRATI ONE (09:08)
[2021-05-11] MEDS ORDERED: HEPARIN/NS 5000 UNIT/500ML 500 ML IR ONE (09:08)
[2021-05-11] MEDS ORDERED: HEPARIN 10,000 UNITS/10 ML VIAL ONE (09:08)
--- NOTE | 2021-05-11 09:18 | Progress Note ---
Assessment and Plan Assessment and plan: 40-year-old male who was recently hospitalized and discharged earlier this month with a new diagnosis of HIV and suspected AIDS with associated renal dysfunction. Patient was also noted to have a diagnosis of COVID-19 pneumonia during that admission but not hypoxic at that time. Patient was recommended for outpatient follow-up with [facility] department. 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 COVID-19. Patient initially tested + 04/24/2021 but not a candidate for remdesivir. Acute hypoxic respiratory failure. Etiology secondary to Covid versus renal failure versus PCP pneumonia. 05/11/2021. ID has been consulted and we will follow up HIV viral load, CD4 count and genotype. Follow-up LDH 1 3 beta D glucan. ID started Mepron to cover P MARTINEZ and avoiding Bactrim due to renal failure. We started steroids given the new hypoxia. ID also initiated ART with lamivudine, darunavir plus ritonavir and dolutegravir given the possibility of HIVAN. Consider pulmonary consultation. Nephrology following. Renal ultrasound shows signs of CKD. Nephrology to discuss hemodialysis initiation. Continue strict I's and O's daily and monitor renal function closely History Interval history: No new issues overnight Hospitalist Physical - Constitutional Vitals: Temp Pulse Resp BP Pulse Ox 98.9 F 93 H 14 148/111 95 05/11/21 02:57 05/11/21 04:32 05/11/21 04:32 05/11/21 03:01 05/11/21 04:00 General appearance: Present: no acute distress, cachectic - EENT Eyes: Present: PERRL, EOM intact ENT: hearing intact, clear oral mucosa, dentition normal - Neck Neck: Present: supple, normal ROM - Respiratory Respiratory effort: normal Respiratory: bilateral: CTA - Cardiovascular Rhythm: regular Heart Sounds: Present: S1 & S2. Absent: gallop, rub - Extremities Extremities: no ischemia, No edema, Full ROM - Abdominal General gastrointestinal: soft, non-tender, non-distended, normal bowel sounds - Integumentary Integumentary: Present: clear, warm, dry - Neurologic Neurologic: CNII-XII intact, moves all extremities HEART Score - HEART Score Troponin: Troponin T < 0.010 ng/mL (0.00-0.029) 05/10/21 09:45 Results - Labs CBC & Chem 7: 05/10/21 09:45 05/10/21 09:45 Labs: Laboratory Last Values WBC 6.8 K/mm3 (4.5-11.0) 05/10/21 09:45 RBC 2.89 M/mm3 (3.65-5.03) L 05/10/21 09:45 Hgb 8.8 gm/dl (11.8-15.2) L 05/10/21 09:45 Hct 26.9 % (35.5-45.6) L 05/10/21 09:45 MCV 93 fl (84-94) 05/10/21 09:45 MCH 30 pg (28-32) 05/10/21 09:45 MCHC 33 % (32-34) 05/10/21 09:45 RDW 13.7 % (13.2-15.2) 05/10/21 09:45 Plt Count 367 K/mm3 (140-440) 05/10/21 09:45 Add Manual Diff Complete 05/10/21 09:45 Total Counted 100 05/10/21 09:45 Seg Neuts % (Manual) 97.0 % (40.0-70.0) H 05/10/21 09:45 Band Neutrophils % 0 % 05/10/21 09:45 Lymphocytes % (Manual) 0 % (13.4-35.0) L 05/10/21 09:45 Reactive Lymphs % (Man) 0 % 05/10/21 09:45 Monocytes % (Manual) 3.0 % (0.0-7.3) 05/10/21 09:45 Eosinophils % (Manual) 0 % (0.0-4.3) 05/10/21 09:45 Basophils % (Manual) 0 % (0.0-1.8) 05/10/21 09:45 Metamyelocytes % 0 % 05/10/21 09:45 Myelocytes % 0 % 05/10/21 09:45 Promyelocytes % 0 % 05/10/21 09:45 Blast Cells % 0 % 05/10/21 09:45 Nucleated RBC % Not Reportable 05/10/21 09:45 Seg Neutrophils # Man 6.6 K/mm3 (1.8-7.7) 05/10/21 09:45 Band Neutrophils # 0.0 K/mm3 05/10/21 09:45 Lymphocytes # (Manual) 0.0 K/mm3 (1.2-5.4) L 05/10/21 09:45 Abs React Lymphs (Man) 0.0 K/mm3 05/10/21 09:45 Monocytes # (Manual) 0.2 K/mm3 (0.0-0.8) 05/10/21 09:45 Eosinophils # (Manual) 0.0 K/mm3 (0.0-0.4) 05/10/21 09:45 Basophils # (Manual) 0.0 K/mm3 (0.0-0.1) 05/10/21 09:45 Metamyelocytes # 0.0 K/mm3 05/10/21 09:45 Myelocytes # 0.0 K/mm3 05/10/21 09:45 Promyelocytes # 0.0 K/mm3 05/10/21 09:45 Blast Cells # 0.0 K/mm3 05/10/21 09:45 WBC Morphology Not Reportable 05/10/21 09:45 Hypersegmented Neuts Not Reportable 05/10/21 09:45 Hyposegmented Neuts Not Reportable 05/10/21 09:45 Hypogranular Neuts Not Reportable 05/10/21 09:45 Smudge Cells Not Reportable 05/10/21 09:45 Toxic Granulation Not Reportable 05/10/21 09:45 Toxic Vacuolation Not Reportable 05/10/21 09:45 Dohle Bodies Not Reportable 05/10/21 09:45 Pelger-Huet Anomaly Not Reportable 05/10/21 09:45 Karishma Rods Not Reportable 05/10/21 09:45 Platelet Estimate Consistent w auto 05/10/21 09:45 Clumped Platelets Not Reportable 05/10/21 09:45 Plt Clumps, EDTA Not Reportable 05/10/21 09:45 Large Platelets Not Reportable 05/10/21 09:45 Giant Platelets Not Reportable 05/10/21 09:45 Platelet Satelliting Not Reportable 05/10/21 09:45 Plt Morphology Comment Not Reportable 05/10/21 09:45 RBC Morphology Not Reportable 05/10/21 09:45 Dimorphic RBCs Not Reportable 05/10/21 09:45 Polychromasia Not Reportable 05/10/21 09:45 Hypochromasia Not Reportable 05/10/21 09:45 Poikilocytosis Not Reportable 05/10/21 09:45 Anisocytosis 1+ 05/10/21 09:45 Microcytosis Not Reportable 05/10/21 09:45 Macrocytosis Not Reportable 05/10/21 09:45 Spherocytes Not Reportable 05/10/21 09:45 Pappenheimer Bodies Not Reportable 05/10/21 09:45 Sickle Cells Not Reportable 05/10/21 09:45 Target Cells Not Reportable 05/10/21 09:45 Tear Drop Cells Not Reportable 05/10/21 09:45 Ovalocytes Not Reportable 05/10/21 09:45 Helmet Cells Not Reportable 05/10/21 09:45 [place] Bodies Not Reportable 05/10/21 09:45 [place] Rings Not Reportable 05/10/21 09:45 [place] Cells Not Reportable 05/10/21 09:45 Bite Cells Not Reportable 05/10/21 09:45 Crenated Cell Not Reportable 05/10/21 09:45 Elliptocytes Not Reportable 05/10/21 09:45 Acanthocytes (Spur) Not Reportable 05/10/21 09:45 Rouleaux Not Reportable 05/10/21 09:45 Hemoglobin C Crystals Not Reportable 05/10/21 09:45 Schistocytes Not Reportable 05/10/21 09:45 Malaria parasites Not Reportable 05/10/21 09:45 Angus Bodies Not Reportable 05/10/21 09:45 Hem Pathologist Commnt No 05/10/21 09:45 D-Dimer 730.16 ng/mlDDU (0-234) H 05/10/21 09:45 Sodium 137 mmol/L (137-145) 05/10/21 09:45 Potassium 4.9 mmol/L (3.6-5.0) 05/10/21 09:45 Chloride 97.4 mmol/L (98-107) L 05/10/21 09:45 Carbon Dioxide 22 mmol/L (22-30) 05/10/21 09:45 Anion Gap 23 mmol/L 05/10/21 09:45 BUN 100 mg/dL (9-20) H 05/10/21 09:45 Creatinine 8.4 mg/dL (0.8-1.3) H 05/10/21 09:45 Estimated GFR 9 ml/min 05/10/21 09:45 BUN/Creatinine Ratio 12 % 05/10/21 09:45 Glucose 98 mg/dL (75-100) 05/10/21 09:45 Glucose 100 mg/dL (75-100) 05/10/21 09:45 Lactic Acid 2.40 mmol/L (0.7-2.0) H* 05/10/21 23:03 Calcium 8.6 mg/dL (8.4-10.2) 05/10/21 09:45 Ferritin 1426.0 ng/mL (30.0-300.0) H 05/10/21 09:45 Total Bilirubin 0.20 mg/dL (0.1-1.2) 05/10/21 09:45 AST 26 units/L (5-40) 05/10/21 09:45 ALT 13 units/L (7-56) 05/10/21 09:45 Alkaline Phosphatase 79 units/L (35-129) 05/10/21 09:45 Lactate Dehydrogenase 600 units/L (91-180) H 05/10/21 09:45 Lactate Dehydrogenase 623 units/L (91-180) H 05/10/21 09:45 Total Creatine Kinase 31 units/L (55-170) L 05/10/21 09:45 CK-MB (CK-2) < 1.0 ng/mL (0.0-4.0) 05/10/21 09:45 CK-MB (CK-2) Rel Index 3.2 (0-4) 05/10/21 09:45 Troponin T < 0.010 ng/mL (0.00-0.029) 05/10/21 09:45 C-Reactive Protein 8.90 mg/dL (0.00-1.30) H 05/10/21 09:45 C-Reactive Protein 9.00 mg/dL (0.00-1.30) H 05/10/21 09:45 NT-Pro-B Natriuret Pep 4065 pg/mL (0-450) H 05/10/21 09:45 Total Protein 7.6 g/dL (6.3-8.2) 05/10/21 09:45 Albumin 2.4 g/dL (3.9-5) L 05/10/21 09:45 Albumin/Globulin Ratio 0.5 % 05/10/21 09:45 TSH 2.390 mlU/mL (0.270-4.200) 05/10/21 09:45 Free T4 0.94 ng/dL (0.76-1.46) 05/10/21 09:45 Urine Color Yellow (Yellow) 05/10/21 13:49 Urine Turbidity Clear (Clear) 05/10/21 13:49 Urine pH 8.0 (5.0-7.0) H 05/10/21 13:49 Ur Specific [place] 1.025 (1.003-1.030) 05/10/21 13:49 Urine Protein 100 mg/dl mg/dL (Negative) 05/10/21 13:49 Urine Glucose (UA) Negative mg/dL (Negative) 05/10/21 13:49 Urine Ketones Negative mg/dL (Negative) 05/10/21 13:49 Urine Blood Negative (Negative) 05/10/21 13:49 Urine Nitrite Negative (Negative) 05/10/21 13:49 Ur Reducing Substances Not Reportable 05/10/21 13:49 Urine Bilirubin Negative (Negative) 05/10/21 13:49 Urine Ictotest Not Reportable 05/10/21 13:49 Urine Urobilinogen 0.0 mg/dL (<2.0) 05/10/21 13:49 Ur Leukocyte Esterase Negative (Negative) 05/10/21 13:49 Urine WBC (Auto) 2.0 /HPF (0.0-6.0) 05/10/21 13:49 Urine RBC (Auto) < 1.0 /HPF (0.0-6.0) 05/10/21 13:49 U Epithel Cells (Auto) 1.0 /HPF (0-13.0) 05/10/21 13:49 Microbiology: Microbiology 05/10/21 11:28 Peripheral/Venous Blood Culture - Preliminary Culture in Progress 05/10/21 11:28 Peripheral/Venous Blood Culture - Preliminary Culture in Progress Krishnan/IV: Voiding Method Urinal Active Medications - Current Medications Current Medications: Generic Name Dose Route Start Last Admin Trade Name Freq PRN Reason Stop Dose Admin Acetaminophen 650 mg 05/10/21 11:26 Acetaminophen 325 Mg Tab PO Q4H PRN Pain MILD(1-3)/Fever >100.5/[place] Albuterol 2.5 mg 05/10/21 11:26 05/11/21 04:32 Albuterol 2.5 Mg/3 Ml Nebu IH 2.5 mg Q4HRT PRN Administration Shortness Of Breath Ascorbic Acid 500 mg 05/10/21 22:00 05/10/21 22:00 Ascorbic Acid 500 Mg Tab PO 500 mg BID [facility] Administration Atovaquone 750 mg 05/10/21 15:00 05/10/21 22:00 Atovaquone 750 Mg/5 Ml Oral Susp PO 750 mg BID [facility] Administration Bumetanide 2 mg 05/10/21 20:00 05/10/21 22:00 Bumetanide 1 Mg/4 Ml Inj IV 2 mg TID [facility] Administration Cholecalciferol 1,000 unit 05/11/21 10:00 Cholecalciferol (Vit D3) 400 Unit Tab PO QDAY [facility] Darunavir 800 mg 05/10/21 14:45 05/10/21 15:15 Darunavir 800 Mg Tab PO 800 mg QDAY [facility] Administration Dolutegravir Sodium 50 mg 05/10/21 15:00 05/10/21 16:00 Dolutegravir 50 Mg Tab PO 50 mg QDAY [facility] Administration Heparin Sodium (Porcine) 5,000 unit 05/10/21 22:00 05/10/21 23:53 Heparin 5,000 Unit/1 Ml Vial SUB-Q 5,000 unit Q12HR [facility] Administration Hydromorphone HCl 0.25 mg 05/10/21 11:26 Hydromorphone 1 Mg/1 Ml Inj IV Q4H PRN Pain, Moderate (4-6) Hydromorphone HCl 0.5 mg 05/10/21 11:26 Hydromorphone 1 Mg/1 Ml Inj IV Q23H PRN Pain , Severe (7-10) Ceftriaxone Sodium 2 gm in 100 mls @ 200 mls/hr 05/10/21 12:00 05/10/21 15:00 Rocephin/Ns 2 Gm/100 Ml IV 200 mls/hr Q24H [facility] Administration Protocol Azithromycin 500 mg in 250 mls @ 250 mls/hr 05/10/21 12:00 05/10/21 13:45 Zithromax/Ns IV 250 mls/hr Q24H [facility] Administration Protocol Sodium Chloride 100 mls @ 999 mls/hr 05/10/21 15:58 Nacl 0.9% IV TRENT PRN Hypotension Lamivudine 100 mg 05/10/21 15:00 Lamivudine 50 Mg/5 Ml Oral Liqd PO DAILY [facility] Methylprednisolone Sodium Succinate 40 mg 05/10/21 14:00 05/11/21 05:29 Methylprednisolone Sod Succinate 40 Mg/1 Ml Inj IV 40 mg Q8HR [facility] Administration Multivitamins/Minerals 1 each 05/11/21 10:00 Multivitamins,Ther W-Minerals Tab PO QDAY [facility] Ondansetron HCl 4 mg 05/10/21 11:26 Ondansetron 4 Mg/2 Ml Inj IV Q8H PRN Nausea And Vomiting Oxycodone/Acetaminophen 1 tab 05/10/21 11:26 Oxycodone /Acetaminophen 5-325mg Tab PO Q16H PRN Pain, Moderate (4-6) Pneumococcal Polyvalent Vaccine 0.5 ml 05/11/21 12:00 Pneumococcal 23 Valent 0.5 Ml Vial IM 05/11/21 12:01 .ONCE ONE Ritonavir 100 mg 05/10/21 15:00 05/10/21 15:15 Ritonavir 100 Mg Tab PO 100 mg QDAY SANTOS Administration Sodium Bicarbonate 1,300 mg 05/10/21 14:00 05/10/21 22:00 Sodium Bicarbonate 650 Mg Tab PO 1,300 mg TID SANTOS Administration Sodium Chloride 10 ml 05/10/21 22:00 05/11/21 00:13 Sodium Chloride 0.9% 10 Ml Flush Syringe IV 10 ml BID SANTOS Administration Sodium Chloride 10 ml 05/10/21 11:26 Sodium Chloride 0.9% 10 Ml Flush Syringe IV PRN PRN LINE FLUSH Zinc Sulfate 220 mg 05/10/21 22:00 05/10/21 22:00 Zinc Sulfate 220 Mg Cap PO 220 mg BID SANTOS Administration
[2021-05-11] MEDS ORDERED: SODIUM CHLORIDE 0.9% 250ML 250 ML ONE (09:22)
[2021-05-11] MEDS ORDERED: LIDOCAINE 2%/EPINEPHRINE 1:100,000 VIAL (20 ML) INFILTRATI ONE (09:48)
[2021-05-11] MEDS ORDERED: VIT K PO SCH (10:00)
[2021-05-11] MEDS ORDERED: LYCOP PO SCH (10:00)
[2021-05-11] MEDS ORDERED: MULTIVIT MIN PO SCH (10:00)
[2021-05-11] MEDS ORDERED: FOLIC PO SCH (10:00)
[2021-05-11] MEDS ORDERED: [UNRECOGNIZED DRUG - OTHER] PO SCH (10:00)
[2021-05-11] MEDS: DARUNAVIR 800 MG TAB PO SCH (10:00)
--- NOTE | 2021-05-11 10:05 | Progress Note ---
Assessment and Plan (1) Sepsis (2) Pneumonia (3) Malnutrition (4) Acute respiratory failure with hypoxia (5) COVID-19 (6) HIV (human immunodeficiency virus infection) (7) Progressive CKD likely ESRD kidney disease could be related to HIVAN Renal US showed CKD signs R&B of HD d/w patient yesterday who agreed and consented to HD, TDC today and HD afterwards. HD tomorrow as well. His CXR is congested. CM consult to place patient at [facility]. Renally dose medications Strict I&O's daily Obtain daily weights Continue to monitor renal function closely Subjective Date of service: 05/11/21 Interval history: TDC today, HD today. NAD. Objective - Exam Narrative Exam: General appearance: Present: mild distress, cachectic - EENT Eyes: Present: PERRL ENT: hearing intact, clear oral mucosa - Neck Neck: Present: supple, normal ROM - Respiratory Respiratory effort: labored Respiratory: bilateral: diminished, rhonchi - Cardiovascular Rhythm: other (Tachycardia) Heart Sounds: Present: S1 & S2. Absent: rub, click - Extremities Extremities: pulses symmetrical, No edema Peripheral Pulses: abnormal (Capillary refill greater than 3.5 seconds) - Abdominal General gastrointestinal: Present: soft, non-tender, non-distended, normal bowel sounds Male genitourinary: Present: normal - Integumentary Integumentary: Present: clear, dry, clammy, decreased turgor - Musculoskeletal Musculoskeletal: generalized weakness - Psychiatric Psychiatric: appropriate mood/affect, intact judgment & insight - Neurologic Neurologic: CNII-XII intact, no focal deficits, moves all extremities, no gait normal - Vital Signs Vital signs: Vital Signs - 12hr 05/10/21 05/10/21 05/11/21 22:38 23:01 00:00 Temperature Pulse Rate 103 H 100 H 97 H Pulse Rate [ Bilateral Throughout] Respiratory 22 43 H 30 H Rate Respiratory Rate [Bilateral Throughout] Blood Pressure 145/106 152/108 Blood Pressure 153/109 [Left] O2 Sat by Pulse 97 87 98 Oximetry 05/11/21 05/11/21 05/11/21 01:00 02:01 02:29 Temperature 98.6 F Pulse Rate 102 H 107 H 105 H Pulse Rate [ Bilateral Throughout] Respiratory 42 H 28 H 22 Rate Respiratory Rate [Bilateral Throughout] Blood Pressure 161/117 150/112 Blood Pressure 154/112 [Left] O2 Sat by Pulse 96 95 98 Oximetry 05/11/21 05/11/21 05/11/21 02:57 03:01 04:00 Temperature 98.9 F Pulse Rate 105 H 98 H Pulse Rate [ Bilateral Throughout] Respiratory 22 39 H Rate Respiratory Rate [Bilateral Throughout] Blood Pressure 148/111 Blood Pressure 154/112 [Left] O2 Sat by Pulse 96 98 95 Oximetry 05/11/21 04:32 Temperature Pulse Rate Pulse Rate [ 93 H Bilateral Throughout] Respiratory Rate Respiratory 14 Rate [Bilateral Throughout] Blood Pressure Blood Pressure [Left] O2 Sat by Pulse Oximetry - Lab 05/11/21 09:53 05/11/21 09:53 Most recent lab results Calcium 8.6 mg/dL (8.4-10.2) 05/10/21 09:45 Medications & Allergies - Medications Allergies/Adverse Reactions: Allergies No Known Allergies Allergy (Verified 04/20/21 08:43) Home Medications: Home Medications Medication Instructions Recorded Confirmed Last Taken Type Multivit-Min/Folic/Vit K/Lycop 1 tab PO QDAY 04/21/21 04/21/21 3 Days Ago H istory [Men's Multivitamin Tablet] ~04/18/21 Sodium Bicarbonate 1,300 mg PO TID #90 tablet 05/01/21 Unknown Rx Active Medications: Generic Name Dose Route Start Last Admin Trade Name Isaíasq PRN Reason Stop Dose Admin Acetaminophen 650 mg 05/10/21 11:26 Acetaminophen 325 Mg Tab PO Q4H PRN Pain MILD(1-3)/Fever >100.5/LANGLEY Albuterol 2.5 mg 05/10/21 11:26 05/11/21 04:32 Albuterol 2.5 Mg/3 Ml Nebu IH 2.5 mg Q4HRT PRN Administration Shortness Of Breath Ascorbic Acid 500 mg 05/10/21 22:00 05/10/21 22:00 Ascorbic Acid 500 Mg Tab PO 500 mg BID SANTOS Administration Atovaquone 750 mg 05/10/21 15:00 05/10/21 22:00 Atovaquone 750 Mg/5 Ml Oral Susp PO 750 mg BID SANTOS Administration Bumetanide 2 mg 05/10/21 20:00 05/10/21 22:00 Bumetanide 1 Mg/4 Ml Inj IV 2 mg TID SANTOS Administration Cholecalciferol 1,000 unit 05/11/21 10:00 Cholecalciferol (Vit D3) 400 Unit Tab PO QDAY [facility] Darunavir 800 mg 05/10/21 14:45 05/10/21 15:15 Darunavir 800 Mg Tab PO 800 mg QDAY SANTOS Administration Dolutegravir Sodium 50 mg 05/10/21 15:00 05/10/21 16:00 Dolutegravir 50 Mg Tab PO 50 mg QDAY [facility] Administration Heparin Sodium (Porcine) 5,000 unit 05/10/21 22:00 05/10/21 23:53 Heparin 5,000 Unit/1 Ml Vial SUB-Q 5,000 unit Q12HR SANTOS Administration Hydromorphone HCl 0.25 mg 05/10/21 11:26 Hydromorphone 1 Mg/1 Ml Inj IV Q4H PRN Pain, Moderate (4-6) Hydromorphone HCl 0.5 mg 05/10/21 11:26 Hydromorphone 1 Mg/1 Ml Inj IV Q23H PRN Pain , Severe (7-10) Ceftriaxone Sodium 2 gm in 100 mls @ 200 mls/hr 05/10/21 12:00 05/10/21 15:00 Rocephin/Ns 2 Gm/100 Ml IV 200 mls/hr Q24H [facility] Administration Protocol Azithromycin 500 mg in 250 mls @ 250 mls/hr 05/10/21 12:00 05/10/21 13:45 Zithromax/Ns IV 250 mls/hr Q24H [facility] Administration Protocol Sodium Chloride 100 mls @ 999 mls/hr 05/10/21 15:58 Nacl 0.9% IV TRENT PRN Hypotension Lamivudine 100 mg 05/10/21 15:00 Lamivudine 50 Mg/5 Ml Oral Liqd PO DAILY [facility] Methylprednisolone Sodium Succinate 40 mg 05/10/21 14:00 05/11/21 05:29 Methylprednisolone Sod Succinate 40 Mg/1 Ml Inj IV 40 mg Q8HR [facility] Administration Multivitamins/Minerals 1 each 05/11/21 10:00 Multivitamins,Ther W-Minerals Tab PO QDAY [facility] Ondansetron HCl 4 mg 05/10/21 11:26 Ondansetron 4 Mg/2 Ml Inj IV Q8H PRN Nausea And Vomiting Oxycodone/Acetaminophen 1 tab 05/10/21 11:26 Oxycodone /Acetaminophen 5-325mg Tab PO Q16H PRN Pain, Moderate (4-6) Pneumococcal Polyvalent Vaccine 0.5 ml 05/11/21 12:00 Pneumococcal 23 Valent 0.5 Ml Vial IM 05/11/21 12:01 .ONCE ONE Ritonavir 100 mg 05/10/21 15:00 05/10/21 15:15 Ritonavir 100 Mg Tab PO 100 mg QDAY SANTOS Administration Sodium Bicarbonate 1,300 mg 05/10/21 14:00 05/10/21 22:00 Sodium Bicarbonate 650 Mg Tab PO 1,300 mg TID SANTOS Administration Sodium Chloride 10 ml 05/10/21 22:00 05/11/21 00:13 Sodium Chloride 0.9% 10 Ml Flush Syringe IV 10 ml BID SANTOS Administration Sodium Chloride 10 ml 05/10/21 11:26 Sodium Chloride 0.9% 10 Ml Flush Syringe IV PRN PRN LINE FLUSH Zinc Sulfate 220 mg 05/10/21 22:00 05/10/21 22:00 Zinc Sulfate 220 Mg Cap PO 220 mg BID SANTOS Administration
[2021-05-11] MEDS: HEPARIN 5,000 UNIT/1 ML VIAL SUB-Q SCH ×2 (10:10→22:13)
[2021-05-11 10:40] LABS: Mean Corpuscular HGB Conc 32 % (32-34); Mean Corpuscular Volume 94 fl (84-94); Platelet Count 350 K/mm3 (140-440); Red Blood Count 2.66 M/mm3 (3.65-5.03); Red Cell Distribution Width 13.4 % (13.2-15.2)
[2021-05-11 11:00] LABS: Calcium 8.4 mg/dL (8.4-10.2)
[2021-05-11] MEDS: fentaNYL 100 MCG/2 ML INJ ONE ×2 (11:12→11:34)
[2021-05-11] MEDS: MIDAZOLAM 2 MG/2 ML INJ ONE ×2 (11:12→11:34)
[2021-05-11] MEDS ORDERED: PNEUMOCOCCAL 23 Valent 0.5 ML VIAL IM ONE (12:00)
--- NOTE | 2021-05-11 12:24 | Operative Report ---
Operative Report Operative Report: EXAM: 1. Ultrasound-guided puncture of the right internal jugular vein 2. Fluoroscopic-guided placement of a right internal jugular tunneled cuffed hemodialysis catheter. DATE: 05/11/2021 INDICATION: Acute renal failure requiring hemodialysis access. MEDICATIONS: Please see nursing report for full details. DEVICES: 23 cm tip to cuff 15 Fr dual lumen hemodialysis catheter SPECIMEN PROCESSOR: DIANNA DENNY MD CONTRAST: None PROCEDURE: The risks, benefits, and alternatives were discussed and informed consent was obtained. The patient was transported to the angiography suite in satisfactory/stable condition and was transported onto the angiography table. The patient's right internal jugular vein was assessed with ultrasound and determined to be patent prior to procedure. The patient was prepped and draped in a sterile fashion. The puncture site was anesthetized. Under sonographic guidance, the right internal jugular vein was punctured with a 21-gauge micropuncture needle and a 0.018 inch wire was advanced into the inferior vena cava. The micropuncture needle was exchanged for a transitional dilator and the wire was retracted into the right atrium to ricardo intravascular distance. The wire and inner dilator were removed. 0.035 inch wire was advanced through the transitional dilator into the inferior vena cava. A suitable exit site was identified on the patient's chest inferior and lateral to the venotomy. The site was anesthetized with local anesthetic and the track was anesthetized. Dermatotomy was made. The PermCath was attached to the tunneling device and tunneled between the dermatotomy to the venotomy. Over the 0.035 inch wire, serial dilatation was performed with ultimate placement of a peel-away sheath. The catheter was advanced through the peel- away sheath after the wire was removed and positioned centrally under fluoroscopic guidance. The peel-away sheath was removed. 4-0 Vicryl suture was used to close the venotomy and Dermabond was then applied. 2-0 Ethilon suture was used to secure the catheter at the dermatotomy. The catheter was charged with heparin 1000 as per mL of space. Sterile dressing applied. The patient was transferred from the angiography suite back to the floor in stable condition. Complications: The patient hyperventilated during the procedure due to a panic attack causing resultant hypoxia. This was treated with Versed but was unsuccessful. After his panic attack, his hemodynamics normalized. FINDINGS: 1. Excellent flow was obtained through the dialysis catheter with 20 mL syringes. 2. The catheter tip is in the right atrium. IMPRESSION: 1. Successful ultrasound and fluoroscopically guided placement of a right internal jugular tunneled cuffed hemodialysis catheter.
--- NOTE | 2021-05-11 13:26 | Electrocardiograph Report ---
[facility] Test Date: 2021-05-10 Test Time: 09:29:31 Pat Name: YOKASTA HOLDER Department: Room: A364 Gender: M Naturopath: AVA : 1980 Requested By: KATHE HERNANDEZ Order Number: [id number] Reading MD: James Christensen Measurements Intervals Deaver Rate: 121 P: 64 WV: 124 QRS: 49 QRSD: 76 T: 53 QT: 344 QTc: 488 Interpretive Statements Sinus tachycardia Consider left ventricular hypertrophy Compared to ECG 04/20/2021 12:10:52 Sinus rate has increased Electronically Signed On 05-11-2021 13:25:42 EST by James Christensen
[2021-05-11] MEDS: SODIUM BICARBONATE 650 MG TAB PO SCH ×3 (13:53→22:26)
[2021-05-11] MEDS: lamiVUDine 50 MG/5 ML ORAL LIQD PO SCH (13:53)
[2021-05-11] MEDS: ATOVAQUONE 750 MG/5 ML ORAL SUSP PO SCH ×2 (13:55→22:16)
[2021-05-11] MEDS: RITONAVIR 100 MG TAB PO SCH (13:58)
[2021-05-11] MEDS: MULTIVITAMINS,THER W-MINERALS TAB PO SCH (13:59)
[2021-05-11] MEDS: DOLUTEGRAVIR 50 MG TAB PO SCH (13:59)
[2021-05-11] MEDS: ASCORBIC ACID 500 MG TAB PO SCH ×2 (14:00→22:13)
[2021-05-11] MEDS: CHOLECALCIFEROL (VIT D3) 400 UNIT TAB PO SCH (14:00)
[2021-05-11] MEDS: BUMETANIDE 1 MG/4 ML INJ IV SCH ×3 (14:01→22:18)
[2021-05-11] MEDS: ZINC SULFATE 220 MG CAP PO SCH ×2 (14:03→22:16)
[2021-05-11 14:08] LABS: Anisocytosis 1+; Basophils % (Manual) 0 % (0.0-1.8); Eosinophils % (Manual) 0 % (0.0-4.3); Platelet Estimate Consistent w Auto; Total Cells Counted 100; Toxic Granulation 1+
--- NOTE | 2021-05-11 14:15 | Electrocardiograph Report ---
[facility] Test Date: 2021-05-11 Test Time: 10:07:07 Pat Name: YOKASTA HOLDER Department: Room: A364 1 Gender: M Manager Utilization Management: UMU : 1980 Requested By: KATHE HERNANDEZ Order Number: [id number] Reading MD: James Christensen Measurements Intervals [place] Rate: 102 P: 52 MA: 156 QRS: 51 QRSD: 72 T: 55 QT: 354 QTc: 462 Interpretive Statements Sinus tachycardia Compared to ECG 05/10/2021 09:29:31 No significant changes Electronically Signed On 05-11-2021 14:15:23 EST by James Christensen
--- NOTE | 2021-05-11 14:19 | Progress Note ---
Assessment and Plan Cultures: 05/10/2021 blood culture: no growth 05/11/2021 COVID-19 PCR: Positive 05/11/2021 serum cryptococcal antigen: Negative Previous admission labs reviewed: Negative for syphilis, C. difficile PCR, hepatitis panel 04/24/2021 COVID-19 PCR: Positive A/P: 40-year-old male who was recently hospitalized and discharged earlier this month with a new diagnosis of HIV and suspected AIDS along with renal dysfunction. He was also diagnosed with COVID-19 during that admission. He was recommended outpatient follow-up with [facility] department. Now readmitted with generalized weakness, worsening shortness of breath: #HIV, suspected AIDS, ?HIVAN #COVID-19: Initially tested positive on 04/24/2021, not a candidate for Remdesivir. #Acute hypoxic resp failure: ?COVID v/s renal failure v/s PCP pneumonia. #Acute renal failure: ?HIVAN. Nephrology following. Planned for HD. Recs: -f/u HIV viral load, CD4 count, genotype, 1 3 beta D glucan -continue empiric PO Mepron to cover PJP, avoiding Bactrim due to renal failure -Given hypoxia, continue with steroids -Given possibility of HIVAN, ART started on 05/10/2021: lamivudine 100 mg daily, darunavir + ritonavir, dolutegravir aRmy Harper MD, FACP, GENNARO [facility] O: [phone] F: [phone] Subjective Date of service: 05/11/21 Interval history: No fever. Remains on oxygen by nasal cannula. CRP 9.0, LDH 623, procalcitonin 6.81. Planned for HD. Objective - Exam Narrative Exam: Physical Exam (reviewed in chart to minimize risk of transmission) Constitutional: deferred Head, Ears, Nose: deferred Eyes: deferred Neck: deferred Oral: deferred Cardiovascular: deferred Respiratory: deferred GI: deferred Musculoskeletal: deferred Skin: deferred Hem/Lymphatic: deferred Psych: deferred Neurological: deferred - Constitutional Vitals: Vital Signs Temp Pulse Resp BP Pulse Ox 97.8 F 93 H 22 142/107 91 05/11/21 12:26 05/11/21 04:32 05/11/21 12:26 05/11/21 12:26 05/11/21 12:26 Temperature -Last 24 Hours Temperature 97.8 F Temperature 98.9 F Temperature 98.6 F - Labs CBC & Chem 7: 05/11/21 09:53 05/11/21 09:53 Labs: Abnormal lab results 05/10/21 05/10/21 05/10/21 Range/Units 09:45 13:49 23:03 RBC (3.65-5.03) M/mm3 Hgb (11.8-15.2) gm/dl Hct (35.5-45.6) % Seg Neuts % (Manual) 97.0 H (40.0-70.0) % Lymphocytes % (Manual) 0 L (13.4-35.0) % Lymphocytes # (Manual) 0.0 L (1.2-5.4) K/mm3 Carbon Dioxide (22-30) mmol/L BUN (9-20) mg/dL Creatinine (0.8-1.3) mg/dL Glucose (75-100) mg/dL Lactic Acid 2.40 H* (0.7-2.0) mmol/L Urine pH 8.0 H (5.0-7.0) Coronavirus (PCR) (Negative) 05/11/21 05/11/21 05/11/21 Range/Units 09:00 09:53 09:53 RBC 2.66 L (3.65-5.03) M/mm3 Hgb 8.0 L (11.8-15.2) gm/dl Hct 25.0 L (35.5-45.6) % Seg Neuts % (Manual) 94.0 H (40.0-70.0) % Lymphocytes % (Manual) 5.0 L (13.4-35.0) % Lymphocytes # (Manual) 0.3 L (1.2-5.4) K/mm3 Carbon Dioxide 17 L (22-30) mmol/L BUN 104 H (9-20) mg/dL Creatinine 8.2 H (0.8-1.3) mg/dL Glucose 132 H (75-100) mg/dL Lactic Acid (0.7-2.0) mmol/L Urine pH (5.0-7.0) Coronavirus (PCR) Positive A (Negative) 05/11/21 Range/Units 09:53 RBC (3.65-5.03) M/mm3 Hgb (11.8-15.2) gm/dl Hct (35.5-45.6) % Seg Neuts % (Manual) (40.0-70.0) % Lymphocytes % (Manual) (13.4-35.0) % Lymphocytes # (Manual) (1.2-5.4) K/mm3 Carbon Dioxide (22-30) mmol/L BUN (9-20) mg/dL Creatinine (0.8-1.3) mg/dL Glucose (75-100) mg/dL Lactic Acid 2.10 H* (0.7-2.0) mmol/L Urine pH (5.0-7.0) Coronavirus (PCR) (Negative)
[2021-05-11 14:24] LABS: Hepatitis B Surface Antigen Non-Reactive (Negative); Hepatitis C Virus Antibody Non-Reactive (NonReactive)
[2021-05-11] MEDS: oxyCODONE /ACETAMINOPHEN 5-325MG TAB PO PRN ×2 (14:59→22:23)
[2021-05-11] MEDS ORDERED: SODIUM CHLORIDE 0.9% 100 ML IV PRN (15:43)
[2021-05-11] MEDS: cefTRIAXone/NS 2 GM/100 ML 2 GM/100 ML BAG IV SCH (16:28)
[2021-05-11] MEDS: AZITHROMYCIN/NS 500 MG/250 ML 500 MG/250 ML BAG IV SCH (17:58)
[2021-05-12] MEDS: methylPREDNISolone Sod Succinate 40 MG/1 ML INJ IV SCH ×3 (06:00→22:42)
[2021-05-12] MEDS: BUMETANIDE 1 MG/4 ML INJ IV SCH ×3 (10:07→22:42)
[2021-05-12] MEDS: SODIUM BICARBONATE 650 MG TAB PO SCH ×3 (10:07→21:30)
[2021-05-12] MEDS: ASCORBIC ACID 500 MG TAB PO SCH ×2 (10:10→21:30)
--- NOTE | 2021-05-12 10:44 | Progress Note ---
Assessment and Plan Assessment and plan: 40-year-old male who was recently hospitalized and discharged earlier this month with a new diagnosis of HIV and suspected AIDS with associated renal dysfunction. Patient was also noted to have a diagnosis of COVID-19 pneumonia during that admission but not hypoxic at that time. Patient was recommended for outpatient follow-up with [facility]. 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 COVID-19. Patient initially tested + 04/24/2021 but not a candidate for remdesivir. Acute hypoxic respiratory failure. Etiology secondary to Covid versus renal failure versus PCP pneumonia. 05/11/2021. ID has been consulted and we will follow up HIV viral load, CD4 count and genotype. Follow-up LDH 1 3 beta D glucan. ID started Mepron to cover P MARTINEZ and avoiding Bactrim due to renal failure. We started steroids given the new hypoxia. ID also initiated ART with lamivudine, darunavir plus ritonavir and dolutegravir given the possibility of HIVAN. Consider pulmonary consultation. Nephrology following. Renal ultrasound shows signs of CKD. Nephrology to discuss hemodialysis initiation. Continue strict I's and O's daily and monitor renal function closely 05/12/2021. Patient is s/p placement of a right internal jugular tunneled cuffed hemodialysis catheter and initiation of hemodialysis on 05/11/2021. Patient is also undergo further hemodialysis today. CM consult to place patient at [place] dialysis unit. We will follow up HIV viral load, CD4 count and genotype. Follow-up LDH 1 3 beta D glucan. ID started Mepron to cover P MARTINEZ and avoiding Bactrim due to renal failure. ID also initiated ART with lamivudine, darunavir plus ritonavir and dolutegravir given the possibility of HIVAN. Continue steroids given the hypoxia. Respiratory status has significantly improved after hemodialysis. I believe volume overload was the most si gnificantly contributing factor/etiology. Follow-up serial chest x-ray. Patient currently with 2 L nasal cannula satting at 99% History Interval history: No new issues overnight Hospitalist Physical - Constitutional Vitals: Temp Pulse Resp BP Pulse Ox 97.5 F L 94 H 19 153/108 99 05/12/21 05:47 05/12/21 05:47 05/12/21 05:47 05/12/21 05:47 05/12/21 10:05 General appearance: Present: no acute distress, cachectic - EENT Eyes: Present: PERRL, EOM intact ENT: hearing intact, clear oral mucosa, dentition normal - Neck Neck: Present: supple, normal ROM - Respiratory Respiratory effort: normal Respiratory: bilateral: CTA - Cardiovascular Rhythm: regular Heart Sounds: Present: S1 & S2. Absent: gallop, rub - Extremities Extremities: no ischemia, No edema, Full ROM - Abdominal General gastrointestinal: soft, non-tender, non-distended, normal bowel sounds - Integumentary Integumentary: Present: clear, warm, dry - Neurologic Neurologic: CNII-XII intact, moves all extremities HEART Score - HEART Score Troponin: Troponin T < 0.010 ng/mL (0.00-0.029) 05/10/21 09:45 Results - Labs CBC & Chem 7: 05/11/21 09:53 05/11/21 09:53 Labs: Laboratory Last Values WBC 6.2 K/mm3 (4.5-11.0) 05/11/21 09:53 RBC 2.66 M/mm3 (3.65-5.03) L 05/11/21 09:53 Hgb 8.0 gm/dl (11.8-15.2) L 05/11/21 09:53 Hct 25.0 % (35.5-45.6) L 05/11/21 09:53 MCV 94 fl (84-94) 05/11/21 09:53 MCH 30 pg (28-32) 05/11/21 09:53 MCHC 32 % (32-34) 05/11/21 09:53 RDW 13.4 % (13.2-15.2) 05/11/21 09:53 Plt Count 350 K/mm3 (140-440) 05/11/21 09:53 Add Manual Diff Complete 05/11/21 09:53 Total Counted 100 05/11/21 09:53 Seg Neutrophils % Heating Mechanic 05/11/21 09:53 Seg Neuts % (Manual) 94.0 % (40.0-70.0) H 05/11/21 09:53 Band Neutrophils % 0 % 05/11/21 09:53 Lymphocytes % (Manual) 5.0 % (13.4-35.0) L 05/11/21 09:53 Reactive Lymphs % (Man) 0 % 05/11/21 09:53 Monocytes % (Manual) 1.0 % (0.0-7.3) 05/11/21 09:53 Eosinophils % (Manual) 0 % (0.0-4.3) 05/11/21 09:53 Basophils % (Manual) 0 % (0.0-1.8) 05/11/21 09:53 Metamyelocytes % 0 % 05/11/21 09:53 Myelocytes % 0 % 05/11/21 09:53 Promyelocytes % 0 % 05/11/21 09:53 Blast Cells % 0 % 05/11/21 09:53 Nucleated RBC % Not Reportable 05/11/21 09:53 Seg Neutrophils # Man 5.8 K/mm3 (1.8-7.7) 05/11/21 09:53 Band Neutrophils # 0.0 K/mm3 05/11/21 09:53 Lymphocytes # (Manual) 0.3 K/mm3 (1.2-5.4) L 05/11/21 09:53 Abs React Lymphs (Man) 0.0 K/mm3 05/11/21 09:53 Monocytes # (Manual) 0.1 K/mm3 (0.0-0.8) 05/11/21 09:53 Eosinophils # (Manual) 0.0 K/mm3 (0.0-0.4) 05/11/21 09:53 Basophils # (Manual) 0.0 K/mm3 (0.0-0.1) 05/11/21 09:53 Metamyelocytes # 0.0 K/mm3 05/11/21 09:53 Myelocytes # 0.0 K/mm3 05/11/21 09:53 Promyelocytes # 0.0 K/mm3 05/11/21 09:53 Blast Cells # 0.0 K/mm3 05/11/21 09:53 WBC Morphology Not Reportable 05/11/21 09:53 Hypersegmented Neuts Not Reportable 05/11/21 09:53 Hyposegmented Neuts Not Reportable 05/11/21 09:53 Hypogranular Neuts Not Reportable 05/11/21 09:53 Smudge Cells Not Reportable 05/11/21 09:53 Toxic Granulation 1+ 05/11/21 09:53 Toxic Vacuolation Not Reportable 05/11/21 09:53 Dohle Bodies Not Reportable 05/11/21 09:53 Pelger-Huet Anomaly Not Reportable 05/11/21 09:53 Karishma Rods Not Reportable 05/11/21 09:53 Platelet Estimate Consistent w auto 05/11/21 09:53 Clumped Platelets Not Reportable 05/11/21 09:53 Plt Clumps, EDTA Not Reportable 05/11/21 09:53 Large Platelets Not Reportable 05/11/21 09:53 Giant Platelets Not Reportable 05/11/21 09:53 Platelet Satelliting Not Reportable 05/11/21 09:53 Plt Morphology Comment Not Reportable 05/11/21 09:53 RBC Morphology Not Reportable 05/11/21 09:53 Dimorphic RBCs Not Reportable 05/11/21 09:53 Polychromasia Not Reportable 05/11/21 09:53 Hypochromasia Not Reportable 05/11/21 09:53 Poikilocytosis Not Reportable 05/11/21 09:53 Anisocytosis 1+ 05/11/21 09:53 Microcytosis Not Reportable 05/11/21 09:53 Macrocytosis Not Reportable 05/11/21 09:53 Spherocytes Not Reportable 05/11/21 09:53 Pappenheimer Bodies Not Reportable 05/11/21 09:53 Sickle Cells Not Reportable 05/11/21 09:53 Target Cells Not Reportable 05/11/21 09:53 Tear Drop Cells Not Reportable 05/11/21 09:53 Ovalocytes Not Reportable 05/11/21 09:53 Helmet Cells Not Reportable 05/11/21 09:53 [place] Bodies Not Reportable 05/11/21 09:53 [place] Rings Not Reportable 05/11/21 09:53 Bernarda Cells Not Reportable 05/11/21 09:53 Bite Cells Not Reportable 05/11/21 09:53 Crenated Cell Not Reportable 05/11/21 09:53 Elliptocytes Not Reportable 05/11/21 09:53 Acanthocytes (Spur) Not Reportable 05/11/21 09:53 Rouleaux Not Reportable 05/11/21 09:53 Hemoglobin C Crystals Not Reportable 05/11/21 09:53 Schistocytes Not Reportable 05/11/21 09:53 Malaria parasites Not Reportable 05/11/21 09:53 Angus Bodies Not Reportable 05/11/21 09:53 Hem Pathologist Commnt No 05/11/21 09:53 D-Dimer 730.16 ng/mlDDU (0-234) H 05/10/21 09:45 Sodium 139 mmol/L (137-145) 05/11/21 09:53 Potassium 4.4 mmol/L (3.6-5.0) 05/11/21 09:53 Chloride 101.2 mmol/L (98-107) 05/11/21 09:53 Carbon Dioxide 17 mmol/L (22-30) L 05/11/21 09:53 Anion Gap 25 mmol/L 05/11/21 09:53 BUN 104 mg/dL (9-20) H 05/11/21 09:53 Creatinine 8.2 mg/dL (0.8-1.3) H 05/11/21 09:53 Estimated GFR 9 ml/min 05/11/21 09:53 BUN/Creatinine Ratio 13 % 05/11/21 09:53 Glucose 132 mg/dL (75-100) H 05/11/21 09:53 Lactic Acid 2.10 mmol/L (0.7-2.0) H* 05/11/21 09:53 Calcium 8.4 mg/dL (8.4-10.2) 05/11/21 09:53 Ferritin 1426.0 ng/mL (30.0-300.0) H 05/10/21 09:45 Total Bilirubin 0.20 mg/dL (0.1-1.2) 05/10/21 09:45 AST 26 units/L (5-40) 05/10/21 09:45 ALT 13 units/L (7-56) 05/10/21 09:45 Alkaline Phosphatase 79 units/L (35-129) 05/10/21 09:45 Lactate Dehydrogenase 600 units/L (91-180) H 05/10/21 09:45 Lactate Dehydrogenase 623 units/L (91-180) H 05/10/21 09:45 Total Creatine Kinase 31 units/L (55-170) L 05/10/21 09:45 CK-MB (CK-2) < 1.0 ng/mL (0.0-4.0) 05/10/21 09:45 CK-MB (CK-2) Rel Index 3.2 (0-4) 05/10/21 09:45 Troponin T < 0.010 ng/mL (0.00-0.029) 05/10/21 09:45 C-Reactive Protein 8.90 mg/dL (0.00-1.30) H 05/10/21 09:45 C-Reactive Protein 9.00 mg/dL (0.00-1.30) H 05/10/21 09:45 NT-Pro-B Natriuret Pep 4065 pg/mL (0-450) H 05/10/21 09:45 Total Protein 7.6 g/dL (6.3-8.2) 05/10/21 09:45 Albumin 2.4 g/dL (3.9-5) L 05/10/21 09:45 Albumin/Globulin Ratio 0.5 % 05/10/21 09:45 Procalcitonin 6.81 ng/mL (<0.15) 05/10/21 09:45 TSH 2.390 mlU/mL (0.270-4.200) 05/10/21 09:45 Free T4 0.94 ng/dL (0.76-1.46) 05/10/21 09:45 Urine Color Yellow (Yellow) 05/10/21 13:49 Urine Turbidity Clear (Clear) 05/10/21 13:49 Urine pH 8.0 (5.0-7.0) H 05/10/21 13:49 Ur Specific [place] 1.025 (1.003-1.030) 05/10/21 13:49 Urine Protein 100 mg/dl mg/dL (Negative) 05/10/21 13:49 Urine Glucose (UA) Negative mg/dL (Negative) 05/10/21 13:49 Urine Ketones Negative mg/dL (Negative) 05/10/21 13:49 Urine Blood Negative (Negative) 05/10/21 13:49 Urine Nitrite Negative (Negative) 05/10/21 13:49 Ur Reducing Substances Not Reportable 05/10/21 13:49 Urine Bilirubin Negative (Negative) 05/10/21 13:49 Urine Ictotest Not Reportable 05/10/21 13:49 Urine Urobilinogen 0.0 mg/dL (<2.0) 05/10/21 13:49 Ur Leukocyte Esterase Negative (Negative) 05/10/21 13:49 Urine WBC (Auto) 2.0 /HPF (0.0-6.0) 05/10/21 13:49 Urine RBC (Auto) < 1.0 /HPF (0.0-6.0) 05/10/21 13:49 U Epithel Cells (Auto) 1.0 /HPF (0-13.0) 05/10/21 13:49 Coronavirus (PCR) Positive (Negative) A 05/11/21 09:00 Hepatitis A IgM Ab Non-reactive (NonReactive) 05/11/21 09:53 Hep Bs Antigen Non-reactive (Negative) 05/11/21 09:53 Hep B Core IgM Ab Non-reactive (NonReactive) 05/11/21 09:53 Hepatitis C Antibody Non-reactive (NonReactive) 05/11/21 09:53 Microbiology: Microbiology 05/10/21 11:28 Peripheral/Venous Blood Culture - Preliminary NO GROWTH AFTER 24 HOURS 05/10/21 11:28 Peripheral/Venous Blood Culture - Preliminary NO GROWTH AFTER 24 HOURS 05/11/21 Unknown Serum Cryptococcal Antigen - Final Krishnan/IV: Voiding Method Urinal Active Medications - Current Medications Current Medications: Generic Name Dose Route Start Last Admin Trade Name Freq PRN Reason Stop Dose Admin Acetaminophen 650 mg 05/10/21 11:26 Acetaminophen 325 Mg Tab PO Q4H PRN Pain MILD(1-3)/Fever >100.5/LANGLEY Albuterol 2.5 mg 05/10/21 11:26 05/11/21 04:32 Albuterol 2.5 Mg/3 Ml Nebu IH 2.5 mg Q4HRT PRN Administration Shortness Of Breath Ascorbic Acid 500 mg 05/10/21 22:00 05/12/21 10:10 Ascorbic Acid 500 Mg Tab PO 500 mg BID SANTOS Administration Atovaquone 750 mg 05/10/21 15:00 05/11/21 22:16 Atovaquone 750 Mg/5 Ml Oral Susp PO 750 mg BID SANTOS Administration Bumetanide 2 mg 05/10/21 20:00 05/12/21 10:07 Bumetanide 1 Mg/4 Ml Inj IV 2 mg TID SANTOS Administration Cholecalciferol 1,000 unit 02/15/22 10:00 05/11/21 14:00 Cholecalciferol (Vit D3) 400 Unit Tab PO Not Given QDAY [facility] Darunavir 800 mg 05/10/21 14:45 05/11/21 10:00 Darunavir 800 Mg Tab PO Not Given QDAY [facility] Dolutegravir Sodium 50 mg 05/10/21 15:00 05/11/21 13:59 Dolutegravir 50 Mg Tab PO Not Given QDAY [facility] Heparin Sodium (Porcine) 5,000 unit 05/10/21 22:00 05/11/21 22:13 Heparin 5,000 Unit/1 Ml Vial SUB-Q 5,000 unit Q12HR [facility] Administration Hydromorphone HCl 0.25 mg 05/10/21 11:26 Hydromorphone 1 Mg/1 Ml Inj IV Q4H PRN Pain, Moderate (4-6) Hydromorphone HCl 0.5 mg 05/10/21 11:26 Hydromorphone 1 Mg/1 Ml Inj IV Q23H PRN Pain , Severe (7-10) Sodium Chloride 100 mls @ 999 mls/hr 05/10/21 15:58 Nacl 0.9% IV TRENT PRN Hypotension Sodium Chloride 100 mls @ 999 mls/hr 05/11/21 15:43 Nacl 0.9% IV TRENT PRN Hypotension Lamivudine 100 mg 05/10/21 15:00 05/11/21 13:53 Lamivudine 50 Mg/5 Ml Oral Liqd PO Not Given DAILY [facility] Methylprednisolone Sodium Succinate 40 mg 05/10/21 14:00 05/11/21 22:12 Methylprednisolone Sod Succinate 40 Mg/1 Ml Inj IV 40 mg Q8HR [facility] Administration Multivitamins/Minerals 1 each 05/11/21 10:00 05/11/21 13:59 Multivitamins,Ther W-Minerals Tab PO Not Given QDAY [facility] Ondansetron HCl 4 mg 05/10/21 11:26 Ondansetron 4 Mg/2 Ml Inj IV Q8H PRN Nausea And Vomiting Oxycodone/Acetaminophen 1 tab 05/10/21 11:26 05/11/21 22:23 Oxycodone /Acetaminophen 5-325mg Tab PO 1 tab Q16H PRN Administration Pain, Moderate (4-6) Ritonavir 100 mg 05/10/21 15:00 05/11/21 13:58 Ritonavir 100 Mg Tab PO Not Given QDAY SANTOS Sodium Bicarbonate 1,300 mg 05/10/21 14:00 05/12/21 10:07 Sodium Bicarbonate 650 Mg Tab PO 1,300 mg TID SANTOS Administration Sodium Chloride 10 ml 05/10/21 22:00 05/11/21 22:14 Sodium Chloride 0.9% 10 Ml Flush Syringe IV 10 ml BID SANTOS Administration Sodium Chloride 10 ml 05/10/21 11:26 Sodium Chloride 0.9% 10 Ml Flush Syringe IV PRN PRN LINE FLUSH Zinc Sulfate 220 mg 05/10/21 22:00 05/11/21 22:16 Zinc Sulfate 220 Mg Cap PO 220 mg BID SANTOS Administration Nutrition/Malnutrition Assess - Dietary Evaluation Nutrition/Malnutrition Findings: Nutrition Notes Start: 05/11/21 12:44 Freq: Status: Active Protocol: Document 05/11/21 12:44 DALY (Rec: 05/11/21 13:25 DALY [id number]) Nutrition Notes Need for Assessment generated from: 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 Current Diet NPO (05/11 00:01), D Suppl (D 05/11). Labs/Tests 05/11: CO2 17, BUN 104, Crea 8 .2, Glu 132. Pertinent Medications 05/11: Vit C, Vit D3, ZnSO4, others nutritionally unremarkable. Height 6 ft 2 in Weight 55.8 kg [place] Body Weight (kg) 86.36 BMI 15.7 Intake Prior to Admission Poor Weight change and time frame Pt states having loss more than 34 lbs recently without trying. Weight Status Underweight Subjective/Other Information RD consult for Low BMI and risk for malnutrition assessments, and dietary supplementation request. Pt is currently NPO. Pt underwent procedure 05/11: Fluoroscopic-guided placement of a right internal jugular tunneled cuffed hemodyalisis catheter. well tolerated, according to Progress notes. Pt's poor prognosis could require mechanical ventilation . Dietary supplements required by MD, ONS ordered. Pt's Low BMI seems to correspond to a natural body composition, and also related to a sudden loss of body weight with chronic malnutrition, as mentioned in the Physical Assessment History and the Progress notes . Percent of energy/protein needs met: Pt is currently on NPO. Prescribed Dietary Supplements will compensate for possible poor or insufficient PO intake of meals with 1,275 Kcal and 57 g of protein. Burn Absent Trauma Absent GI Symptoms Diarrhea Food Allergy No Skin Integrity/Comment Clear, warm, dry. Current % PO Other Minimum of two criteria Yes Interpretation of Weight Loss (severe) >10% in 6 months Body Fat Depletion Moderate depletion (severe) Reduced Heel Brusher Strength N/A (non-severe) Protein-Calorie Malnutrition Severe #1 Nutrition Diagnosis Underweight Comments: Pt's Low BMI seems to correspond to a natural body composition, and also related to a sudden loss of body weight with chronic malnutrition, as mentioned in the Physical Assessment History and the Progress notes . Etiology Uncertain As Evidenced by Signs and Symptoms Pt's Low BMI. Is patient on ventilator? No Is Patient Ambulatory and/or Out of Bed Yes REE-([facility]-ambulatory/OOB) [ 1999.075 [id number]] Calculation Used for Recommendations [facility] Additional Notes Protein: 1.2-1.5 g/Kg; 67-84 g /day. Fluids: 1 ml/Kcal, or as per MD. Nutrition Intervention Change Diet Order: Advance to PO diet when medically pertinent. Add Supplement/Snack (indicate name/kcal Start 8 fl oz Nepro w/ /protein ) CARBSTEADY; TID. Provides kCal: 1,275 Provides Protein (gm) 57 Goal #1 Compensate, through dietary supplementation, for possible poor or insufficient PO intake of meals during LOS. Goal #2 Maintain body weight within +/ -3% of admission body weight during LOS. Follow-Up By: 05/14/21 Additional Comments When pertinent, monitor food and ONS tolerance, %PO intake of meals, and BM.
--- NOTE | 2021-05-12 11:24 | Progress Note ---
Assessment and Plan (1) Sepsis (2) Pneumonia (3) Malnutrition (4) Acute respiratory failure with hypoxia (5) COVID-19 (6) HIV (human immunodeficiency virus infection) (7) Progressive CKD likely ESRD kidney disease could be related to HIVAN Renal US showed CKD signs R&B of HD was discussed with patient who agreed and consented to HD. s/p TDC yesterday, HD#1 yesterday, HD#2 today CM consulted to place patient at [facility]. Renally dose medications Strict I&O's daily Obtain daily weights Continue to monitor renal function closely Subjective Date of service: 05/12/21 Interval history: Tolerated HD yesterday after TDC, HD today. NAD. Objective - Exam Narrative Exam: General appearance: Present: mild distress, cachectic - EENT Eyes: Present: PERRL ENT: hearing intact, clear oral mucosa - Neck Neck: Present: supple, normal ROM - Respiratory Respiratory effort: labored Respiratory: bilateral: diminished, rhonchi - Cardiovascular Rhythm: other (Tachycardia) Heart Sounds: Present: S1 & S2. Absent: rub, click - Extremities Extremities: pulses symmetrical, No edema Peripheral Pulses: abnormal (Capillary refill greater than 3.5 seconds) - Abdominal General gastrointestinal: Present: soft, non-tender, non-distended, normal bowel sounds Male genitourinary: Present: normal - Integumentary Integumentary: Present: clear, dry, clammy, decreased turgor - Musculoskeletal Musculoskeletal: generalized weakness - Psychiatric Psychiatric: appropriate mood/affect, intact judgment & insight - Neurologic Neurologic: CNII-XII intact, no focal deficits, moves all extremities, no gait normal - Vital Signs Vital signs: Vital Signs - 12hr 05/12/21 05/12/21 05/12/21 04:00 05:47 10:05 Temperature 97.5 F L Pulse Rate 94 H Respiratory 19 Rate Blood Pressure 153/108 O2 Sat by Pulse 92 99 99 Oximetry - Lab 05/11/21 09:53 05/11/21 09:53 Most recent lab results Calcium 8.4 mg/dL (8.4-10.2) 05/11/21 09:53 Medications & Allergies - Medications Allergies/Adverse Reactions: Allergies No Known Allergies Allergy (Verified 04/20/21 08:43) Home Medications: Home Medications Medication Instructions Recorded Confirmed Last Taken Type Multivit-Min/Folic/Vit K/Lycop 1 tab PO QDAY 04/21/21 04/21/21 3 Days Ago History [Men's Multivitamin Tablet] ~04/18/21 Sodium Bicarbonate 1,300 mg PO TID #90 tablet 05/01/21 Unknown Rx Active Medications: Generic Name Dose Route Start Last Admin Trade Name Freq PRN Reason Stop Dose Admin Acetaminophen 650 mg 05/10/21 11:26 Acetaminophen 325 Mg Tab PO Q4H PRN Pain MILD(1-3)/Fever >100.5/[place] Albuterol 2.5 mg 05/10/21 11:26 05/11/21 04:32 Albuterol 2.5 Mg/3 Ml Nebu IH 2.5 mg Q4HRT PRN Administration Shortness Of Breath Ascorbic Acid 500 mg 05/10/21 22:00 05/12/21 10:10 Ascorbic Acid 500 Mg Tab PO 500 mg BID SANTOS Administration Atovaquone 750 mg 05/10/21 15:00 05/11/21 22:16 Atovaquone 750 Mg/5 Ml Oral Susp PO 750 mg BID SANTOS Administration Bumetanide 2 mg 05/10/21 20:00 05/12/21 10:07 Bumetanide 1 Mg/4 Ml Inj IV 2 mg TID SANTOS Administration Cholecalciferol 1,000 unit 05/11/21 10:00 05/11/21 14:00 Cholecalciferol (Vit D3) 400 Unit Tab PO Not Given QDAY [facility] Darunavir 800 mg 05/10/21 14:45 05/11/21 10:00 Darunavir 800 Mg Tab PO Not Given QDAY [facility] Dolutegravir Sodium 50 mg 05/10/21 15:00 05/11/21 13:59 Dolutegravir 50 Mg Tab PO Not Given QDAY [facility] Heparin Sodium (Porcine) 5,000 unit 05/10/21 22:00 05/11/21 22:13 Heparin 5,000 Unit/1 Ml Vial SUB-Q 5,000 unit Q12HR SANTOS Administration Hydromorphone HCl 0.25 mg 05/10/21 11:26 Hydromorphone 1 Mg/1 Ml Inj IV Q4H PRN Pain, Moderate (4-6) Hydromorphone HCl 0.5 mg 05/10/21 11:26 Hydromorphone 1 Mg/1 Ml Inj IV Q23H PRN Pain , Severe (7-10) Sodium Chloride 100 mls @ 999 mls/hr 05/10/21 15:58 Nacl 0.9% IV TRENT PRN Hypotension Sodium Chloride 100 mls @ 999 mls/hr 05/11/21 15:43 Nacl 0.9% IV TRENT PRN Hypotension Lamivudine 100 mg 05/10/21 15:00 05/11/21 13:53 Lamivudine 50 Mg/5 Ml Oral Liqd PO Not Given DAILY [facility] Methylprednisolone Sodium Succinate 40 mg 05/10/21 14:00 05/11/21 22:12 Methylprednisolone Sod Succinate 40 Mg/1 Ml Inj IV 40 mg Q8HR SANTOS Administration Multivitamins/Minerals 1 each 05/11/21 10:00 05/11/21 13:59 Multivitamins,Ther W-Minerals Tab PO Not Given QDAY [facility] Ondansetron HCl 4 mg 05/10/21 11:26 Ondansetron 4 Mg/2 Ml Inj IV Q8H PRN Nausea And Vomiting Oxycodone/Acetaminophen 1 tab 05/10/21 11:26 05/11/21 22:23 Oxycodone /Acetaminophen 5-325mg Tab PO 1 tab Q16H PRN Administration Pain, Moderate (4-6) Ritonavir 100 mg 05/10/21 15:00 05/11/21 13:58 Ritonavir 100 Mg Tab PO Not Given QDAY [facility] Sodium Bicarbonate 1,300 mg 05/10/21 14:00 05/12/21 10:07 Sodium Bicarbonate 650 Mg Tab PO 1,300 mg TID SANTOS Administration Sodium Chloride 10 ml 05/10/21 22:00 05/11/21 22:14 Sodium Chloride 0.9% 10 Ml Flush Syringe IV 10 ml BID SANTOS Administration Sodium Chloride 10 ml 05/10/21 11:26 Sodium Chloride 0.9% 10 Ml Flush Syringe IV PRN PRN LINE FLUSH Zinc Sulfate 220 mg 05/10/21 22:00 05/11/21 22:16 Zinc Sulfate 220 Mg Cap PO 220 mg BID SANTOS Administration
[2021-05-12] MEDS: DARUNAVIR 800 MG TAB PO SCH (11:43)
[2021-05-12] MEDS: HEPARIN 5,000 UNIT/1 ML VIAL SUB-Q SCH ×2 (11:43→21:30)
[2021-05-12] MEDS: ATOVAQUONE 750 MG/5 ML ORAL SUSP PO SCH ×2 (11:43→22:42)
[2021-05-12] MEDS: DOLUTEGRAVIR 50 MG TAB PO SCH (11:45)
[2021-05-12] MEDS: ZINC SULFATE 220 MG CAP PO SCH ×2 (11:45→21:30)
[2021-05-12] MEDS: MULTIVITAMINS,THER W-MINERALS TAB PO SCH (11:45)
[2021-05-12] MEDS: RITONAVIR 100 MG TAB PO SCH (11:46)
[2021-05-12] MEDS: CHOLECALCIFEROL (VIT D3) 400 UNIT TAB PO SCH (11:46)
[2021-05-12] MEDS: lamiVUDine 50 MG/5 ML ORAL LIQD PO SCH ×2 (11:50→11:51)
[2021-05-12] MEDS ORDERED: SODIUM CHLORIDE 0.9% 100 ML IV PRN (12:03)
--- NOTE | 2021-05-12 12:41 | Progress Note ---
Assessment and Plan Cultures: 05/10/2021 blood culture: no growth 05/11/2021 COVID-19 PCR: Positive 05/11/2021 serum cryptococcal antigen: Negative Previous admission labs reviewed: Negative for syphilis, C. difficile PCR, hepatitis panel 04/24/2021 COVID-19 PCR: Positive A/P: 40-year-old male who was recently hospitalized and discharged earlier this month with a new diagnosis of HIV and suspected AIDS along with renal dysfunction. He was also diagnosed with COVID-19 during that admission. He was recommended outpatient follow-up with [facility] department. Now readmitted with generalized weakness, worsening shortness of breath: #HIV, suspected AIDS, ?HIVAN #COVID-19: Initially tested positive on 04/24/2021, not a candidate for Remdesivir. #Acute hypoxic resp failure: ?COVID v/s renal failure v/s PCP pneumonia. #Acute renal failure: ?HIVAN. Nephrology following. Now on HD. Recs: -f/u HIV viral load, CD4 count, genotype, 1 3 beta D glucan -continue empiric PO Mepron to cover PJP, avoiding Bactrim due to renal failure -Given hypoxia, continue with steroids -Given possibility of HIVAN, ART was started on 05/10/2021: lamivudine 100 mg daily, darunavir + ritonavir, dolutegravir Ramy Harper MD, [facility] O: [phone] F: [phone] Subjective Date of service: 05/12/21 Interval history: No fever. Remains on oxygen by nasal cannula. Started HD. Objective - Exam Narrative Exam: Physical Exam (reviewed in chart to minimize risk of transmission) Constitutional: deferred Head, Ears, Nose: deferred Eyes: deferred Neck: deferred Oral: deferred Cardiovascular: deferred Respiratory: deferred GI: deferred Musculoskeletal: deferred Skin: deferred Hem/Lymphatic: deferred Psych: deferred Neurological: deferred - Constitutional Vitals: Vital Signs Temp Pulse Resp BP Pulse Ox 97.5 F L 94 H 19 153/108 99 05/12/21 05:47 05/12/21 05:47 05/12/21 05:47 05/12/21 05:47 05/12/21 10:05 Temperature -Last 24 Hours Temperature 97.5 F Temperature 98.3 F Temperature 97.2 F Temperature 97.2 F Temperature 98.2 F Temperature 98.9 F - Labs CBC & Chem 7: 05/11/21 09:53 05/11/21 09:53 Labs: Abnormal lab results 05/11/21 05/11/21 Range/Units 09:00 09:53 Seg Neuts % (Manual) 94.0 H (40.0-70.0) % Lymphocytes % (Manual) 5.0 L (13.4-35.0) % Lymphocytes # (Manual) 0.3 L (1.2-5.4) K/mm3 Coronavirus (PCR) Positive A (Negative)
[2021-05-13] MEDS: methylPREDNISolone Sod Succinate 40 MG/1 ML INJ IV SCH ×2 (05:00→07:12)
[2021-05-13] MEDS: SODIUM BICARBONATE 650 MG TAB PO SCH ×3 (08:00→20:21)
[2021-05-13] MEDS: BUMETANIDE 1 MG/4 ML INJ IV SCH ×3 (08:00→20:21)
[2021-05-13] MEDS: ATOVAQUONE 750 MG/5 ML ORAL SUSP PO SCH ×2 (09:08→21:31)
[2021-05-13] MEDS: RITONAVIR 100 MG TAB PO SCH (09:08)
[2021-05-13] MEDS: DARUNAVIR 800 MG TAB PO SCH (09:08)
[2021-05-13] MEDS: CHOLECALCIFEROL (VIT D3) 400 UNIT TAB PO SCH (09:10)
[2021-05-13] MEDS: DOLUTEGRAVIR 50 MG TAB PO SCH (09:11)
[2021-05-13] MEDS: ZINC SULFATE 220 MG CAP PO SCH ×2 (09:11→21:31)
[2021-05-13] MEDS: lamiVUDine 50 MG/5 ML ORAL LIQD PO SCH (09:12)
[2021-05-13] MEDS: MULTIVITAMINS,THER W-MINERALS TAB PO SCH (09:12)
[2021-05-13] MEDS: ASCORBIC ACID 500 MG TAB PO SCH ×2 (09:12→21:31)
[2021-05-13] MEDS: HEPARIN 5,000 UNIT/1 ML VIAL SUB-Q SCH ×2 (09:14→21:31)
--- NOTE | 2021-05-13 11:38 | Progress Note ---
Assessment and Plan Assessment and plan: 40-year-old male who was recently hospitalized and discharged earlier this month with a new diagnosis of HIV and suspected AIDS with associated renal dysfunction. Patient was also noted to have a diagnosis of COVID-19 pneumonia during that admission but not hypoxic at that time. Patient was recommended for outpatient follow-up with [facility]. 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 COVID-19. Patient initially tested + 04/24/2021 but not a candidate for remdesivir. Acute hypoxic respiratory failure. Etiology secondary to Covid versus renal failure versus PCP pneumonia. 05/11/2021. ID has been consulted and we will follow up HIV viral load, CD4 count and genotype. Follow-up LDH 1 3 beta D glucan. ID started Mepron to cover P MARTINEZ and avoiding Bactrim due to renal failure. We started steroids given the new hypoxia. ID also initiated ART with lamivudine, darunavir plus ritonavir and dolutegravir given the possibility of HIVAN. Consider pulmonary consultation. Nephrology following. Renal ultrasound shows signs of CKD. Nephrology to discuss hemodialysis initiation. Continue strict I's and O's daily and monitor renal function closely 05/12/2021. Patient is s/p placement of a right internal jugular tunneled cuffed hemodialysis catheter and initiation of hemodialysis on 05/11/2021. Patient is also undergo further hemodialysis today. CM consult to place patient at [place] dialysis unit. We will follow up HIV viral load, CD4 count and genotype. Follow-up LDH 1 3 beta D glucan. ID started Mepron to cover P MARTINEZ and avoiding Bactrim due to renal failure. ID also initiated ART with lamivudine, darunavir plus ritonavir and dolutegravir given the possibility of HIVAN. Continue steroids given the hypoxia. Respiratory status has significantly improved after hemodialysis. I believe volume overload was the most si gnificantly contributing factor/etiology. Follow-up serial chest x-ray. Patient currently with 2 L nasal cannula satting at 99% 05/13/2021. Continue hemodialysis per nephrology recommendations. Await outpatient arrangements for hemodialysis unit. We will follow up HIV viral load, CD4 count and genotype. Follow-up LDH 1 3 beta D glucan. ID started Mepron to cover P MARTINEZ and avoiding Bactrim due to renal failure. ID also initiated ART with lamivudine, darunavir plus ritonavir and dolutegravir given the possibility of HIVAN. Continue steroids given the hypoxia and change from Solu-Medrol IV to dexamethasone. Procalcitonin level was elevated at 6. We will continue IV antibiotics per ID recommendations History Interval history: No new issues overnight Hospitalist Physical - Constitutional Vitals: Temp Pulse Resp BP Pulse Ox 97.7 F 108 H 22 158/110 95 05/13/21 11:15 05/13/21 11:15 05/13/21 11:15 05/13/21 11:15 05/13/21 11:15 General appearance: Present: no acute distress, cachectic - EENT Eyes: Present: PERRL, EOM intact ENT: hearing intact, clear oral mucosa, dentition normal - Neck Neck: Present: supple, normal ROM - Respiratory Respiratory effort: normal Respiratory: bilateral: CTA - Cardiovascular Rhythm: regular Heart Sounds: Present: S1 & S2. Absent: gallop, rub - Extremities Extremities: no ischemia, No edema, Full ROM - Abdominal General gastrointestinal: soft, non-tender, non-distended, normal bowel sounds - Integumentary Integumentary: Present: clear, warm, dry - Neurologic Neurologic: CNII-XII intact, moves all extremities HEART Score - HEART Score Troponin: Troponin T < 0.010 ng/mL (0.00-0.029) 05/10/21 09:45 Results - Labs CBC & Chem 7: 05/11/21 09:53 05/11/21 09:53 Labs: Laboratory Last Values WBC 6.2 K/mm3 (4.5-11.0) 05/11/21 09:53 RBC 2.66 M/mm3 (3.65-5.03) L 05/11/21 09:53 Hgb 8.0 gm/dl (11.8-15.2) L 05/11/21 09:53 Hct 25.0 % (35.5-45.6) L 05/11/21 09:53 MCV 94 fl (84-94) 05/11/21 09:53 MCH 30 pg (28-32) 05/11/21 09:53 MCHC 32 % (32-34) 05/11/21 09:53 RDW 13.4 % (13.2-15.2) 05/11/21 09:53 Plt Count 350 K/mm3 (140-440) 05/11/21 09:53 Add Manual Diff Complete 05/11/21 09:53 Total Counted 100 05/11/21 09:53 Seg Neutrophils % Hoisting Engine Operator 05/11/21 09:53 Seg Neuts % (Manual) 94.0 % (40.0-70.0) H 05/11/21 09:53 Band Neutrophils % 0 % 05/11/21 09:53 Lymphocytes % (Manual) 5.0 % (13.4-35.0) L 05/11/21 09:53 Reactive Lymphs % (Man) 0 % 05/11/21 09:53 Monocytes % (Manual) 1.0 % (0.0-7.3) 05/11/21 09:53 Eosinophils % (Manual) 0 % (0.0-4.3) 05/11/21 09:53 Basophils % (Manual) 0 % (0.0-1.8) 05/11/21 09:53 Metamyelocytes % 0 % 05/11/21 09:53 Myelocytes % 0 % 05/11/21 09:53 Promyelocytes % 0 % 05/11/21 09:53 Blast Cells % 0 % 05/11/21 09:53 Nucleated RBC % Not Reportable 05/11/21 09:53 Seg Neutrophils # Man 5.8 K/mm3 (1.8-7.7) 05/11/21 09:53 Band Neutrophils # 0.0 K/mm3 05/11/21 09:53 Lymphocytes # (Manual) 0.3 K/mm3 (1.2-5.4) L 05/11/21 09:53 Abs React Lymphs (Man) 0.0 K/mm3 05/11/21 09:53 Monocytes # (Manual) 0.1 K/mm3 (0.0-0.8) 05/11/21 09:53 Eosinophils # (Manual) 0.0 K/mm3 (0.0-0.4) 05/11/21 09:53 Basophils # (Manual) 0.0 K/mm3 (0.0-0.1) 05/11/21 09:53 Metamyelocytes # 0.0 K/mm3 05/11/21 09:53 Myelocytes # 0.0 K/mm3 05/11/21 09:53 Promyelocytes # 0.0 K/mm3 05/11/21 09:53 Blast Cells # 0.0 K/mm3 05/11/21 09:53 WBC Morphology Not Reportable 05/11/21 09:53 Hypersegmented Neuts Not Reportable 05/11/21 09:53 Hyposegmented Neuts Not Reportable 05/11/21 09:53 Hypogranular Neuts Not Reportable 05/11/21 09:53 Smudge Cells Not Reportable 05/11/21 09:53 Toxic Granulation 1+ 05/11/21 09:53 Toxic Vacuolation Not Reportable 05/11/21 09:53 Dohle Bodies Not Reportable 05/11/21 09:53 Pelger-Huet Anomaly Not Reportable 05/11/21 09:53 Karishma Rods Not Reportable 05/11/21 09:53 Platelet Estimate Consistent w auto 05/11/21 09:53 Clumped Platelets Not Reportable 05/11/21 09:53 Plt Clumps, EDTA Not Reportable 05/11/21 09:53 Large Platelets Not Reportable 05/11/21 09:53 Giant Platelets Not Reportable 05/11/21 09:53 Platelet Satelliting Not Reportable 05/11/21 09:53 Plt Morphology Comment Not Reportable 05/11/21 09:53 RBC Morphology Not Reportable 05/11/21 09:53 Dimorphic RBCs Not Reportable 05/11/21 09:53 Polychromasia Not Reportable 05/11/21 09:53 Hypochromasia Not Reportable 05/11/21 09:53 Poikilocytosis Not Reportable 05/11/21 09:53 Anisocytosis 1+ 05/11/21 09:53 Microcytosis Not Reportable 05/11/21 09:53 Macrocytosis Not Reportable 05/11/21 09:53 Spherocytes Not Reportable 05/11/21 09:53 Pappenheimer Bodies Not Reportable 05/11/21 09:53 Sickle Cells Not Reportable 05/11/21 09:53 Target Cells Not Reportable 05/11/21 09:53 Tear Drop Cells Not Reportable 05/11/21 09:53 Ovalocytes Not Reportable 05/11/21 09:53 Helmet Cells Not Reportable 05/11/21 09:53 Bragg-Norrie Bodies Not Reportable 05/11/21 09:53 [place] Rings Not Reportable 05/11/21 09:53 Elrama Cells Not Reportable 05/11/21 09:53 Bite Cells Not Reportable 05/11/21 09:53 Crenated Cell Not Reportable 05/11/21 09:53 Elliptocytes Not Reportable 05/11/21 09:53 Acanthocytes (Spur) Not Reportable 05/11/21 09:53 Rouleaux Not Reportable 05/11/21 09:53 Hemoglobin C Crystals Not Reportable 05/11/21 09:53 Schistocytes Not Reportable 05/11/21 09:53 Malaria parasites Not Reportable 05/11/21 09:53 Angus Bodies Not Reportable 05/11/21 09:53 Hem Pathologist Commnt No 05/11/21 09:53 D-Dimer 730.16 ng/mlDDU (0-234) H 05/10/21 09:45 Sodium 139 mmol/L (137-145) 05/11/21 09:53 Potassium 4.4 mmol/L (3.6-5.0) 05/11/21 09:53 Chloride 101.2 mmol/L (98-107) 05/11/21 09:53 Carbon Dioxide 17 mmol/L (22-30) L 05/11/21 09:53 Anion Gap 25 mmol/L 05/11/21 09:53 BUN 104 mg/dL (9-20) H 05/11/21 09:53 Creatinine 8.2 mg/dL (0.8-1.3) H 05/11/21 09:53 Estimated GFR 9 ml/min 05/11/21 09:53 BUN/Creatinine Ratio 13 % 05/11/21 09:53 Glucose 132 mg/dL (75-100) H 05/11/21 09:53 Lactic Acid 2.10 mmol/L (0.7-2.0) H* 05/11/21 09:53 Calcium 8.4 mg/dL (8.4-10.2) 05/11/21 09:53 Ferritin 1426.0 ng/mL (30.0-300.0) H 05/10/21 09:45 Total Bilirubin 0.20 mg/dL (0.1-1.2) 05/10/21 09:45 AST 26 units/L (5-40) 05/10/21 09:45 ALT 13 units/L (7-56) 05/10/21 09:45 Alkaline Phosphatase 79 units/L (35-129) 05/10/21 09:45 Lactate Dehydrogenase 600 units/L (91-180) H 05/10/21 09:45 Lactate Dehydrogenase 623 units/L (91-180) H 05/10/21 09:45 Total Creatine Kinase 31 units/L (55-170) L 05/10/21 09:45 CK-MB (CK-2) < 1.0 ng/mL (0.0-4.0) 05/10/21 09:45 CK-MB (CK-2) Rel Index 3.2 (0-4) 05/10/21 09:45 Troponin T < 0.010 ng/mL (0.00-0.029) 05/10/21 09:45 C-Reactive Protein 8.90 mg/dL (0.00-1.30) H 05/10/21 09:45 C-Reactive Protein 9.00 mg/dL (0.00-1.30) H 05/10/21 09:45 NT-Pro-B Natriuret Pep 4065 pg/mL (0-450) H 05/10/21 09:45 Total Protein 7.6 g/dL (6.3-8.2) 05/10/21 09:45 Albumin 2.4 g/dL (3.9-5) L 05/10/21 09:45 Albumin/Globulin Ratio 0.5 % 05/10/21 09:45 Procalcitonin 6.81 ng/mL (<0.15) 05/10/21 09:45 TSH 2.390 mlU/mL (0.270-4.200) 05/10/21 09:45 Free T4 0.94 ng/dL (0.76-1.46) 05/10/21 09:45 Urine Color Yellow (Yellow) 05/10/21 13:49 Urine Turbidity Clear (Clear) 05/10/21 13:49 Urine pH 8.0 (5.0-7.0) H 05/10/21 13:49 Ur Specific [place] 1.025 (1.003-1.030) 05/10/21 13:49 Urine Protein 100 mg/dl mg/dL (Negative) 05/10/21 13:49 Urine Glucose (UA) Negative mg/dL (Negative) 05/10/21 13:49 Urine Ketones Negative mg/dL (Negative) 05/10/21 13:49 Urine Blood Negative (Negative) 05/10/21 13:49 Urine Nitrite Negative (Negative) 05/10/21 13:49 Ur Reducing Substances Not Reportable 05/10/21 13:49 Urine Bilirubin Negative (Negative) 05/10/21 13:49 Urine Ictotest Not Reportable 05/10/21 13:49 Urine Urobilinogen 0.0 mg/dL (<2.0) 05/10/21 13:49 Ur Leukocyte Esterase Negative (Negative) 05/10/21 13:49 Urine WBC (Auto) 2.0 /HPF (0.0-6.0) 05/10/21 13:49 Urine RBC (Auto) < 1.0 /HPF (0.0-6.0) 05/10/21 13:49 U Epithel Cells (Auto) 1.0 /HPF (0-13.0) 05/10/21 13:49 Coronavirus (PCR) Positive (Negative) A 05/11/21 09:00 Hepatitis A IgM Ab Non-reactive (NonReactive) 05/11/21 09:53 Hep Bs Antigen Non-reactive (Negative) 05/11/21 09:53 Hep B Core IgM Ab Non-reactive (NonReactive) 05/11/21 09:53 Hepatitis C Antibody Non-reactive (NonReactive) 05/11/21 09:53 Microbiology: Microbiology 05/10/21 11:28 Peripheral/Venous Blood Culture - Preliminary NO GROWTH AFTER 48 HOURS 05/10/21 11:28 Peripheral/Venous Blood Culture - Preliminary NO GROWTH AFTER 48 HOURS Krishnan/IV: Voiding Method Urinal Active Medications - Current Medications Current Medications: Generic Name Dose Route Start Last Admin Trade Name Freq PRN Reason Stop Dose Admin Acetaminophen 650 mg 05/10/21 11:26 Acetaminophen 325 Mg Tab PO Q4H PRN Pain MILD(1-3)/Fever >100.5/LANG[place] Albuterol 2.5 mg 05/10/21 11:26 05/11/21 04:32 Albuterol 2.5 Mg/3 Ml Nebu IH 2.5 mg Q4HRT PRN Administration Shortness Of Breath Ascorbic Acid 500 mg 05/10/21 22:00 05/13/21 09:12 Ascorbic Acid 500 Mg Tab PO 500 mg BID [facility] Administration Atovaquone 750 mg 05/10/21 15:00 05/13/21 09:08 Atovaquone 750 Mg/5 Ml Oral Susp PO 750 mg BID [facility] Administration Bumetanide 2 mg 05/10/21 20:00 05/13/21 08:00 Bumetanide 1 Mg/4 Ml Inj IV 2 mg TID [facility] Administration Cholecalciferol 1,000 unit 05/11/21 10:00 05/13/21 09:10 Cholecalciferol (Vit D3) 400 Unit Tab PO 1,000 unit QDAY [facility] Administration Darunavir 800 mg 05/10/21 14:45 05/13/21 09:08 Darunavir 800 Mg Tab PO 800 mg QDAY [facility] Administration Dolutegravir Sodium 50 mg 05/10/21 15:00 05/13/21 09:11 Dolutegravir 50 Mg Tab PO 50 mg QDAY [facility] Administration Heparin Sodium (Porcine) 5,000 unit 05/10/21 22:00 05/13/21 09:14 Heparin 5,000 Unit/1 Ml Vial SUB-Q 5,000 unit Q12HR [facility] Administration Hydromorphone HCl 0.25 mg 05/10/21 11:26 Hydromorphone 1 Mg/1 Ml Inj IV Q4H PRN Pain, Moderate (4-6) Hydromorphone HCl 0.5 mg 05/10/21 11:26 Hydromorphone 1 Mg/1 Ml Inj IV Q23H PRN Pain , Severe (7-10) Sodium Chloride 100 mls @ 999 mls/hr 05/12/21 12:03 Nacl 0.9% IV TRENT PRN Hypotension Lamivudine 100 mg 05/10/21 15:00 05/13/21 09:12 Lamivudine 50 Mg/5 Ml Oral Liqd PO 100 mg DAILY [facility] Administration Methylprednisolone Sodium Succinate 40 mg 05/10/21 14:00 05/13/21 07:12 Methylprednisolone Sod Succinate 40 Mg/1 Ml Inj IV Not Given Q8HR [facility] Multivitamins/Minerals 1 each 05/11/21 10:00 05/13/21 09:12 Multivitamins,Ther W-Minerals Tab PO 1 each QDAY [facility] Administration Ondansetron HCl 4 mg 05/10/21 11:26 Ondansetron 4 Mg/2 Ml Inj IV Q8H PRN Nausea And Vomiting Oxycodone/Acetaminophen 1 tab 05/10/21 11:26 05/11/21 22:23 Oxycodone /Acetaminophen 5-325mg Tab PO 1 tab Q16H PRN Administration Pain, Moderate (4-6) Ritonavir 100 mg 05/10/21 15:00 05/13/21 09:08 Ritonavir 100 Mg Tab PO 100 mg QDAY [facility] Administration Sodium Bicarbonate 1,300 mg 05/10/21 14:00 05/13/21 08:00 Sodium Bicarbonate 650 Mg Tab PO 1,300 mg TID [facility] Administration Sodium Chloride 10 ml 05/10/21 22:00 05/13/21 09:14 Sodium Chloride 0.9% 10 Ml Flush Syringe IV 10 ml BID [facility] Administration Sodium Chloride 10 ml 05/10/21 11:26 Sodium Chloride 0.9% 10 Ml Flush Syringe IV PRN PRN LINE FLUSH Zinc Sulfate 220 mg 05/10/21 22:00 05/13/21 09:11 Zinc Sulfate 220 Mg Cap PO 220 mg BID [facility] Administration Nutrition/Malnutrition Assess - Dietary Evaluation Nutrition/Malnutrition Findings: Nutrition Notes Start: 05/11/21 12:44 Freq: Status: Active Protocol: Document 05/11/21 12:44 DALY (Rec: 05/11/21 13:25 DALY [id number]) Nutrition Notes Need for Assessment generated from: MD Order,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 Current Diet NPO (05/11 00:01), D Suppl (D 05/11). Labs/Tests 05/11: CO2 17, BUN 104, Crea 8 .2, Glu 132. Pertinent Medications 05/11: Vit C, Vit D3, ZnSO4, others nutritionally unremarkable. Height 6 ft 2 in Weight 55.8 kg [place] Body Weight (kg) 86.36 BMI 15.7 Intake Prior to Admission Poor Weight change and time frame Pt states having loss more than 34 lbs recently without trying. Weight Status Underweight Subjective/Other Information RD consult for Low BMI and risk for malnutrition assessments, and dietary supplementation request. Pt is currently NPO. Pt underwent procedure 05/11: Fluoroscopic-guided placement of a right internal jugular tunneled cuffed hemodyalisis catheter. well tolerated, according to Progress notes. Pt's poor prognosis could require mechanical ventilation . Dietary supplements required by MD, ONS ordered. Pt's Low BMI seems to correspond to a natural body composition, and also related to a sudden loss of body weight with chronic malnutrition, as mentioned in the Physical Assessment History and the Progress notes . Percent of energy/protein needs met: Pt is currently on NPO. Prescribed Dietary Supplements will compensate for possible poor or insufficient PO intake of meals with 1,275 Kcal and 57 g of protein. Burn Absent Trauma Absent GI Symptoms Diarrhea Food Allergy No Skin Integrity/Comment Clear, warm, dry. Current % PO Other Minimum of two criteria Yes Interpretation of Weight Loss (severe) >10% in 6 months Body Fat Depletion Moderate depletion (severe) Reduced Supervisor Public Message Service Strength N/A (non-severe) Protein-Calorie Malnutrition Severe #1 Nutrition Diagnosis Underweight Comments: Pt's Low BMI seems to correspond to a natural body composition, and also related to a sudden loss of body weight with chronic malnutrition, as mentioned in the Physical Assessment History and the Progress notes . Etiology Uncertain As Evidenced by Signs and Symptoms Pt's Low BMI. Is patient on ventilator? No Is Patient Ambulatory and/or Out of Bed Yes REE-([facility]-ambulatory/OOB) [ 1999.075 [id number]] Calculation Used for Recommendations [facility] Additional Notes Protein: 1.2-1.5 g/Kg; 67-84 g /day. Fluids: 1 ml/Kcal, or as per MD. Nutrition Intervention Change Diet Order: Advance to PO diet when medically pertinent. Add Supplement/Snack (indicate name/kcal Start 8 fl oz Nepro w/ /protein ) CARBSTEADY; TID. Provides kCal: 1,275 Provides Protein (gm) 57 Goal #1 Compensate, through dietary supplementation, for possible poor or insufficient PO intake of meals during LOS. Goal #2 Maintain body weight within +/ -3% of admission body weight during LOS. Follow-Up By: 05/14/21 Additional Comments When pertinent, monitor food and ONS tolerance, %PO intake of meals, and BM.
--- NOTE | 2021-05-13 12:22 | Progress Note ---
Assessment and Plan Cultures: 05/10/2021 blood culture: no growth 05/11/2021 COVID-19 PCR: Positive 05/11/2021 serum cryptococcal antigen: Negative Previous admission labs reviewed: Negative for syphilis, C. difficile PCR, hepatitis panel 04/24/2021 COVID-19 PCR: Positive A/P: 40-year-old male who was recently hospitalized and discharged earlier this month with a new diagnosis of HIV and suspected AIDS along with renal dysfunction. He was also diagnosed with COVID-19 during that admission. He was recommended outpatient follow-up with [facility] department. Now readmitted with generalized weakness, worsening shortness of breath: #HIV, suspected AIDS, ?HIVAN #COVID-19: Initially tested positive on 04/24/2021, not a candidate for Remdesivir. #Acute hypoxic resp failure: ?COVID v/s renal failure v/s PCP pneumonia. #Acute renal failure: ?HIVAN. Nephrology following. Now on HD. Recs: -f/u HIV viral load, CD4 count, genotype, 1 3 beta D glucan -continue empiric PO Mepron to cover PJP, avoiding Bactrim due to renal failure -Given hypoxia, continue with steroids -Given possibility of HIVAN, ART was started on 05/10/2021: lamivudine 100 mg daily, darunavir + ritonavir, dolutegravir -Patient states he has an appointment at the [facility] but it is in early May. Will need social work/pharmacy assistance to give him a month of ART if possible Ramy Harper MD, FACP, [facility] ([facility] O: [phone] F: [phone] Subjective Date of service: 05/13/21 Interval history: No fever. Remains on oxygen by nasal cannula. Reports he is tolerating HD well. Objective - Exam Narrative Exam: Physical Exam Constitutional: Alert, cooperative. No acute distress Head, Ears, Nose: Normocephalic, atraumatic. External ears, nose normal Eyes: Conjunctivae/corneas clear. No icterus. No ptosis. Neck: Supple, no meningeal signs Cardiovascular: S1, S2 + Respiratory: Good air entry, clear to auscultation bilaterally GI: Soft, non-tender; bowel sounds normal. No peritoneal signs Musculoskeletal: No pedal edema, no cyanosis. Skin: No rash or abscess Hem/Lymphatic: No palpable cervical or supraclavicular nodes. No lymphangitis Psych: Mood ok. Affect normal Neurological: Awake, alert, oriented. No gross abnormality - Constitutional Vitals: Vital Signs Temp Pulse Resp BP Pulse Ox 97.7 F 108 H 22 158/110 95 05/13/21 11:15 05/13/21 11:15 05/13/21 11:15 05/13/21 11:15 05/13/21 11:15 Temperature -Last 24 Hours Temperature 97.7 F Temperature 98.3 F Temperature 98.3 F Temperature 97.2 F Temperature 97.4 F Temperature 97.4 F - Labs CBC & Chem 7: 05/11/21 09:53 05/11/21 09:53
--- NOTE | 2021-05-13 13:09 | Progress Note ---
Assessment and Plan (1) Sepsis (2) Pneumonia (3) Malnutrition (4) Acute respiratory failure with hypoxia (5) COVID-19 (6) HIV (human immunodeficiency virus infection) (7) Progressive CKD likely ESRD kidney disease could be related to HIVAN Renal US showed CKD signs R&B of HD was discussed with patient who agreed and consented to HD. s/p TDC may 11, HD#1 may 11, HD#3 today CM consulted to place patient at [facility]. Renally dose medications Strict I&O's daily Obtain daily weights Continue to monitor renal function closely Subjective Date of service: 05/13/21 Interval history: HD today. NAD. Objective - Exam Narrative Exam: General appearance: Present: mild distress, cachectic - EENT Eyes: Present: PERRL ENT: hearing intact, clear oral mucosa - Neck Neck: Present: supple, normal ROM - Respiratory Respiratory effort: labored Respiratory: bilateral: diminished, rhonchi - Cardiovascular Rhythm: other (Tachycardia) Heart Sounds: Present: S1 & S2. Absent: rub, click - Extremities Extremities: pulses symmetrical, No edema Peripheral Pulses: abnormal (Capillary refill greater than 3.5 seconds) - Abdominal General gastrointestinal: Present: soft, non-tender, non-distended, normal bowel sounds Male genitourinary: Present: normal - Integumentary Integumentary: Present: clear, dry, clammy, decreased turgor - Musculoskeletal Musculoskeletal: generalized weakness - Psychiatric Psychiatric: appropriate mood/affect, intact judgment & insight - Neurologic Neurologic: CNII-XII intact, no focal deficits, moves all extremities, no gait normal - Vital Signs Vital signs: Vital Signs - 12hr 05/13/21 05/13/21 05/13/21 04:00 04:33 10:00 Temperature 98.3 F Pulse Rate 104 H Respiratory 16 18 Rate Blood Pressure 145/111 O2 Sat by Pulse 94 99 100 Oximetry 05/13/21 11:15 Temperature 97.7 F Pulse Rate 108 H Respiratory 22 Rate Blood Pressure 158/110 O2 Sat by Pulse 95 Oximetry - Lab 05/11/21 09:53 05/11/21 09:53 Most recent lab results Calcium 8.4 mg/dL (8.4-10.2) 05/11/21 09:53 Medications & Allergies - Medications Allergies/Adverse Reactions: Allergies No Known Allergies Allergy (Verified 04/20/21 08:43) Home Medications: Home Medications Medication Instructions Recorded Confirmed Last Taken Type Multivit-Min/Folic/Vit K/Lycop 1 tab PO QDAY 04/21/21 05/13/21 3 Days Ago History [Men's Multivitamin Tablet] ~04/18/21 Sodium Bicarbonate 1,300 mg PO TID #90 tablet 05/01/21 05/13/21 Unknown Rx Active Medications: Generic Name Dose Route Start Last Admin Trade Name Honorio PRN Reason Stop Dose Admin Acetaminophen 650 mg 05/10/21 11:26 Acetaminophen 325 Mg Tab PO Q4H PRN Pain MILD(1-3)/Fever >100.5/LANG[place] Albuterol 2.5 mg 05/10/21 11:26 05/11/21 04:32 Albuterol 2.5 Mg/3 Ml Nebu IH 2.5 mg Q4HRT PRN Administration Shortness Of Breath Ascorbic Acid 500 mg 05/10/21 22:00 05/13/21 09:12 Ascorbic Acid 500 Mg Tab PO 500 mg BID SANTOS Administration Atovaquone 750 mg 05/10/21 15:00 05/13/21 09:08 Atovaquone 750 Mg/5 Ml Oral Susp PO 750 mg BID SANTOS Administration Bumetanide 2 mg 05/10/21 20:00 05/13/21 08:00 Bumetanide 1 Mg/4 Ml Inj IV 2 mg TID SANTOS Administration Cholecalciferol 1,000 unit 05/11/21 10:00 05/13/21 09:10 Cholecalciferol (Vit D3) 400 Unit Tab PO 1,000 unit QDAY SANTOS Administration Darunavir 800 mg 05/10/21 14:45 05/13/21 09:08 Darunavir 800 Mg Tab PO 800 mg QDAY SANTOS Administration Dexamethasone 6 mg 05/14/21 10:00 Dexamethasone 4 Mg/Ml Vial IV DAILY SANTOS Dolutegravir Sodium 50 mg 05/10/21 15:00 05/13/21 09:11 Dolutegravir 50 Mg Tab PO 50 mg QDAY SANTOS Administration Heparin Sodium (Porcine) 5,000 unit 05/10/21 22:00 05/13/21 09:14 Heparin 5,000 Unit/1 Ml Vial SUB-Q 5,000 unit Q12HR SANTOS Administration Hydromorphone HCl 0.25 mg 05/10/21 11:26 Hydromorphone 1 Mg/1 Ml Inj IV Q4H PRN Pain, Moderate (4-6) Hydromorphone HCl 0.5 mg 05/10/21 11:26 Hydromorphone 1 Mg/1 Ml Inj IV Q23H PRN Pain , Severe (7-10) Sodium Chloride 100 mls @ 999 mls/hr 05/12/21 12:03 Nacl 0.9% IV TRENT PRN Hypotension Lamivudine 100 mg 05/10/21 15:00 05/13/21 09:12 Lamivudine 50 Mg/5 Ml Oral Liqd PO 100 mg DAILY SANTOS Administration Multivitamins/Minerals 1 each 05/11/21 10:00 05/13/21 09:12 Multivitamins,Ther W-Minerals Tab PO 1 each QDAY SANTOS Administration Ondansetron HCl 4 mg 05/10/21 11:26 Ondansetron 4 Mg/2 Ml Inj IV Q8H PRN Nausea And Vomiting Oxycodone/Acetaminophen 1 tab 05/10/21 11:26 05/11/21 22:23 Oxycodone /Acetaminophen 5-325mg Tab PO 1 tab Q16H PRN Administration Pain, Moderate (4-6) Ritonavir 100 mg 05/10/21 15:00 05/13/21 09:08 Ritonavir 100 Mg Tab PO 100 mg QDAY SANTOS Administration Sodium Bicarbonate 1,300 mg 05/10/21 14:00 05/13/21 08:00 Sodium Bicarbonate 650 Mg Tab PO 1,300 mg TID SANTOS Administration Sodium Chloride 10 ml 05/10/21 22:00 05/13/21 09:14 Sodium Chloride 0.9% 10 Ml Flush Syringe IV 10 ml BID SANTOS Administration Sodium Chloride 10 ml 05/10/21 11:26 Sodium Chloride 0.9% 10 Ml Flush Syringe IV PRN PRN LINE FLUSH Zinc Sulfate 220 mg 05/10/21 22:00 05/13/21 09:11 Zinc Sulfate 220 Mg Cap PO 220 mg BID SANTOS Administration
[2021-05-13] MEDS ORDERED: SODIUM CHLORIDE 0.9% 100 ML IV PRN (13:10)
[2021-05-13] MEDS: oxyCODONE /ACETAMINOPHEN 5-325MG TAB PO PRN (22:22)
[2021-05-14 07:08] LABS: Hematocrit 27.4 % (35.5-45.6); Hemoglobin 8.6 gm/dl (11.8-15.2); Mean Corpuscular HGB Conc 31 % (32-34); Mean Corpuscular Volume 94 fl (84-94); Platelet Count 305 K/mm3 (140-440); Red Blood Count 2.93 M/mm3 (3.65-5.03)
[2021-05-14 07:31] LABS: Calcium 8.4 mg/dL (8.4-10.2)
[2021-05-14] MEDS: BUMETANIDE 1 MG/4 ML INJ IV SCH ×3 (08:00→21:12)
[2021-05-14] MEDS: SODIUM BICARBONATE 650 MG TAB PO SCH ×3 (08:00→21:12)
[2021-05-14] MEDS: ALBUTEROL 2.5 MG/3 ML NEBU IH PRN (09:45)
[2021-05-14] MEDS: lamiVUDine 50 MG/5 ML ORAL LIQD PO SCH (09:59)
[2021-05-14] MEDS: DOLUTEGRAVIR 50 MG TAB PO SCH (10:00)
[2021-05-14] MEDS ORDERED: dexAMETHasone 4 MG/ML VIAL IV SCH (10:00)
[2021-05-14] MEDS: DARUNAVIR 800 MG TAB PO SCH (10:00)
[2021-05-14] MEDS: ASCORBIC ACID 500 MG TAB PO SCH ×2 (10:04→21:11)
[2021-05-14] MEDS: MULTIVITAMINS,THER W-MINERALS TAB PO SCH (10:04)
[2021-05-14] MEDS: ZINC SULFATE 220 MG CAP PO SCH ×2 (10:04→21:11)
[2021-05-14] MEDS: HEPARIN 5,000 UNIT/1 ML VIAL SUB-Q SCH ×2 (10:04→21:12)
[2021-05-14] MEDS: ATOVAQUONE 750 MG/5 ML ORAL SUSP PO SCH (10:05)
[2021-05-14] MEDS: RITONAVIR 100 MG TAB PO SCH (10:05)
[2021-05-14] MEDS: CHOLECALCIFEROL (VIT D3) 400 UNIT TAB PO SCH (10:06)
--- NOTE | 2021-05-14 10:14 | Progress Note ---
Subjective Date of service: 05/14/21 Objective - Vital Signs Vital signs: Vital Signs - 12hr 05/13/21 05/14/21 05/14/21 22:35 05:03 09:45 Temperature 98.2 F 98.1 F Pulse Rate 114 H 100 H Pulse Rate [ 104 H Bilateral Throughout] Respiratory 20 20 Rate Respiratory 18 Rate [Bilateral Throughout] Blood Pressure 166/119 150/104 O2 Sat by Pulse 98 96 Oximetry 05/14/21 09:48 Temperature Pulse Rate Pulse Rate [ Bilateral Throughout] Respiratory Rate Respiratory Rate [Bilateral Throughout] Blood Pressure O2 Sat by Pulse 100 Oximetry - Lab 05/14/21 06:05 05/14/21 06:05 Most recent lab results Calcium 8.4 mg/dL (8.4-10.2) 05/14/21 06:05 Medications & Allergies - Medications Allergies/Adverse Reactions: Allergies No Known Allergies Allergy (Verified 04/20/21 08:43) Home Medications: Home Medications Medication Instructions Recorded Confirmed Last Taken Type Multivit-Min/Folic/Vit K/Lycop 1 tab PO QDAY 04/21/21 05/13/21 3 Days Ago History [Men's Multivitamin Tablet] ~04/18/21 Sodium Bicarbonate 1,300 mg PO TID #90 tablet 05/01/21 05/13/21 Unknown Rx Active Medications: Generic Name Dose Route Start Last Admin Trade Name Isaíasq PRN Reason Stop Dose Admin Acetaminophen 650 mg 05/10/21 11:26 Acetaminophen 325 Mg Tab PO Q4H PRN Pain MILD(1-3)/Fever >100.5/[place] Albuterol 2.5 mg 05/10/21 11:26 05/14/21 09:45 Albuterol 2.5 Mg/3 Ml Nebu IH 2.5 mg Q4HRT PRN Administration Shortness Of Breath Ascorbic Acid 500 mg 05/10/21 22:00 05/14/21 10:04 Ascorbic Acid 500 Mg Tab PO 500 mg BID SANTOS Administration Atovaquone 750 mg 05/10/21 15:00 05/14/21 10:05 Atovaquone 750 Mg/5 Ml Oral Susp PO 750 mg BID SANTOS Administration Bumetanide 2 mg 05/10/21 20:00 05/14/21 08:00 Bumetanide 1 Mg/4 Ml Inj IV 2 mg TID SANTOS Administration Cholecalciferol 1,000 unit 05/11/21 10:00 05/14/21 10:06 Cholecalciferol (Vit D3) 400 Unit Tab PO 1,000 unit QDAY SANTOS Administration Darunavir 800 mg 05/10/21 14:45 05/14/21 10:00 Darunavir 800 Mg Tab PO 800 mg QDAY SANTOS Administration Dexamethasone 6 mg 05/14/21 10:00 05/14/21 10:02 Dexamethasone 4 Mg/Ml Vial IV 6 mg DAILY SANTOS Administration Dolutegravir Sodium 50 mg 05/10/21 15:00 05/14/21 10:00 Dolutegravir 50 Mg Tab PO 50 mg QDAY SANTOS Administration Heparin Sodium (Porcine) 5,000 unit 05/10/21 22:00 05/14/21 10:04 Heparin 5,000 Unit/1 Ml Vial SUB-Q 5,000 unit Q12HR SANTOS Administration Hydromorphone HCl 0.25 mg 05/10/21 11:26 Hydromorphone 1 Mg/1 Ml Inj IV Q4H PRN Pain, Moderate (4-6) Hydromorphone HCl 0.5 mg 05/10/21 11:26 Hydromorphone 1 Mg/1 Ml Inj IV Q23H PRN Pain , Severe (7-10) Sodium Chloride 100 mls @ 999 mls/hr 05/13/21 13:10 Nacl 0.9% IV TRENT PRN Hypotension Lamivudine 100 mg 05/10/21 15:00 05/14/21 09:59 Lamivudine 50 Mg/5 Ml Oral Liqd PO 100 mg DAILY SANTOS Administration Multivitamins/Minerals 1 each 05/11/21 10:00 05/14/21 10:04 Multivitamins,Ther W-Minerals Tab PO 1 each QDAY SANTOS Administration Ondansetron HCl 4 mg 05/10/21 11:26 Ondansetron 4 Mg/2 Ml Inj IV Q8H PRN Nausea And Vomiting Oxycodone/Acetaminophen 1 tab 05/10/21 11:26 05/13/21 22:22 Oxycodone /Acetaminophen 5-325mg Tab PO 1 tab Q16H PRN Administration Pain, Moderate (4-6) Ritonavir 100 mg 05/10/21 15:00 05/14/21 10:05 Ritonavir 100 Mg Tab PO 100 mg QDAY SANTOS Administration Sodium Bicarbonate 1,300 mg 05/10/21 14:00 05/14/21 08:00 Sodium Bicarbonate 650 Mg Tab PO 1,300 mg TID SANTOS Administration Sodium Chloride 10 ml 05/10/21 22:00 05/14/21 10:01 Sodium Chloride 0.9% 10 Ml Flush Syringe IV 10 ml BID SANTOS Administration Sodium Chloride 10 ml 05/10/21 11:26 Sodium Chloride 0.9% 10 Ml Flush Syringe IV PRN PRN LINE FLUSH Zinc Sulfate 220 mg 05/10/21 22:00 05/14/21 10:04 Zinc Sulfate 220 Mg Cap PO 220 mg BID SANTOS Administration
--- NOTE | 2021-05-14 10:25 | Progress Note ---
Assessment and Plan Assessment and plan: 40-year-old male who was recently hospitalized and discharged earlier this month with a new diagnosis of HIV and suspected AIDS with associated renal dysfunction. Patient was also noted to have a diagnosis of COVID-19 pneumonia during that admission but not hypoxic at that time. Patient was recommended for outpatient follow-up with [facility]. 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 COVID-19. Patient initially tested + 04/24/2021 but not a candidate for remdesivir. Acute hypoxic respiratory failure. Etiology secondary to Covid versus renal failure versus PCP pneumonia. 05/11/2021. ID has been consulted and we will follow up HIV viral load, CD4 count and genotype. Follow-up LDH 1 3 beta D glucan. ID started Mepron to cover P MARTINEZ and avoiding Bactrim due to renal failure. We started steroids given the new hypoxia. ID also initiated ART with lamivudine, darunavir plus ritonavir and dolutegravir given the possibility of HIVAN. Consider pulmonary consultation. Nephrology following. Renal ultrasound shows signs of CKD. Nephrology to discuss hemodialysis initiation. Continue strict I's and O's daily and monitor renal function closely 05/12/2021. Patient is s/p placement of a right internal jugular tunneled cuffed hemodialysis catheter and initiation of hemodialysis on 05/11/2021. Patient is also undergo further hemodialysis today. CM consult to place patient at [facility]. We will follow up HIV viral load, CD4 count and genotype. Follow-up LDH 1 3 beta D glucan. ID started Mepron to cover P MARTINEZ and avoiding Bactrim due to renal failure. ID also initiated ART with lamivudine, darunavir plus ritonavir and dolutegravir given the possibility of HIVAN. Continue steroids given the hypoxia. Respiratory status has significantly improved after hemodialysis. I believe volume overload was the most si gnificantly contributing factor/etiology. Follow-up serial chest x-ray. Patient currently with 2 L nasal cannula satting at 99% 05/13/2021. Continue hemodialysis per nephrology recommendations. Await outpatient arrangements for hemodialysis unit. We will follow up HIV viral load, CD4 count and genotype. Follow-up LDH 1 3 beta D glucan. ID started Mepron to cover P MARTINEZ and avoiding Bactrim due to renal failure. ID also initiated ART with lamivudine, darunavir plus ritonavir and dolutegravir given the possibility of HIVAN. Continue steroids given the hypoxia and change from Solu-Medrol IV to dexamethasone. Procalcitonin level was elevated at 6. We will continue IV antibiotics per ID recommendations 05/14/2021. Continue hemodialysis per nephrology recommendations. Await outpatient arrangements for hemodialysis unit. We will follow up HIV viral load, CD4 count and genotype. Follow-up LDH 1 3 beta D glucan. ID started Mepron to cover P MARTINEZ and avoiding Bactrim due to renal failure. ID also initiated ART with lamivudine, darunavir plus ritonavir and dolutegravir given the possibility of HIVAN. Continue dexamethasone. Patient to follow-up with health department in early May. Case management follow-up with regards to home ART before follow-up with the health department History Interval history: No new issues overnight Hospitalist Physical - Constitutional Vitals: Temp Pulse Resp BP Pulse Ox 98.1 F 104 H 18 150/104 100 05/14/21 05:03 05/14/21 09:45 05/14/21 09:45 05/14/21 05:03 05/14/21 09:48 General appearance: Present: no acute distress, cachectic - EENT Eyes: Present: PERRL, EOM intact ENT: hearing intact, clear oral mucosa, dentition normal - Neck Neck: Present: supple, normal ROM - Respiratory Respiratory effort: normal Respiratory: bilateral: CTA - Cardiovascular Rhythm: regular Heart Sounds: Present: S1 & S2. Absent: gallop, rub - Extremities Extremities: no ischemia, No edema, Full ROM - Abdominal General gastrointestinal: soft, non-tender, non-distended, normal bowel sounds - Integumentary Integumentary: Present: clear, warm, dry - Neurologic Neurologic: CNII-XII intact, moves all extremities HEART Score - HEART Score Troponin: Troponin T < 0.010 ng/mL (0.00-0.029) 05/10/21 09:45 Results - Labs CBC & Chem 7: 05/14/21 06:05 05/14/21 06:05 Labs: Laboratory Last Values WBC 13.3 K/mm3 (4.5-11.0) H 05/14/21 06:05 RBC 2.93 M/mm3 (3.65-5.03) L 05/14/21 06:05 Hgb 8.6 gm/dl (11.8-15.2) L 05/14/21 06:05 Hct 27.4 % (35.5-45.6) L 05/14/21 06:05 MCV 94 fl (84-94) 05/14/21 06:05 MCH 29 pg (28-32) 05/14/21 06:05 MCHC 31 % (32-34) L 05/14/21 06:05 RDW 14.0 % (13.2-15.2) 05/14/21 06:05 Plt Count 305 K/mm3 (140-440) 05/14/21 06:05 Add Manual Diff Complete 05/11/21 09:53 Total Counted 100 05/11/21 09:53 Seg Neutrophils % [employer]vesting [employer] 05/11/21 09:53 Seg Neuts % (Manual) 94.0 % (40.0-70.0) H 05/11/21 09:53 Band Neutrophils % 0 % 05/11/21 09:53 Lymphocytes % (Manual) 5.0 % (13.4-35.0) L 05/11/21 09:53 Reactive Lymphs % (Man) 0 % 05/11/21 09:53 Monocytes % (Manual) 1.0 % (0.0-7.3) 05/11/21 09:53 Eosinophils % (Manual) 0 % (0.0-4.3) 05/11/21 09:53 Basophils % (Manual) 0 % (0.0-1.8) 05/11/21 09:53 Metamyelocytes % 0 % 05/11/21 09:53 Myelocytes % 0 % 05/11/21 09:53 Promyelocytes % 0 % 05/11/21 09:53 Blast Cells % 0 % 05/11/21 09:53 Nucleated RBC % Not Reportable 05/11/21 09:53 Seg Neutrophils # Man 5.8 K/mm3 (1.8-7.7) 05/11/21 09:53 Band Neutrophils # 0.0 K/mm3 05/11/21 09:53 Lymphocytes # (Manual) 0.3 K/mm3 (1.2-5.4) L 05/11/21 09:53 Abs React Lymphs (Man) 0.0 K/mm3 05/11/21 09:53 Monocytes # (Manual) 0.1 K/mm3 (0.0-0.8) 05/11/21 09:53 Eosinophils # (Manual) 0.0 K/mm3 (0.0-0.4) 05/11/21 09:53 Basophils # (Manual) 0.0 K/mm3 (0.0-0.1) 05/11/21 09:53 Metamyelocytes # 0.0 K/mm3 05/11/21 09:53 Myelocytes # 0.0 K/mm3 05/11/21 09:53 Promyelocytes # 0.0 K/mm3 05/11/21 09:53 Blast Cells # 0.0 K/mm3 05/11/21 09:53 WBC Morphology Not Reportable 05/11/21 09:53 Hypersegmented Neuts Not Reportable 05/11/21 09:53 Hyposegmented Neuts Not Reportable 05/11/21 09:53 Hypogranular Neuts Not Reportable 05/11/21 09:53 Smudge Cells Not Reportable 05/11/21 09:53 Toxic Granulation 1+ 05/11/21 09:53 Toxic Vacuolation Not Reportable 05/11/21 09:53 Dohle Bodies Not Reportable 05/11/21 09:53 Pelger-Huet Anomaly Not Reportable 05/11/21 09:53 Karishma Rods Not Reportable 05/11/21 09:53 Platelet Estimate Consistent w auto 05/11/21 09:53 Clumped Platelets Not Reportable 05/11/21 09:53 Plt Clumps, EDTA Not Reportable 05/11/21 09:53 Large Platelets Not Reportable 05/11/21 09:53 Giant Platelets Not Reportable 05/11/21 09:53 Platelet Satelliting Not Reportable 05/11/21 09:53 Plt Morphology Comment Not Reportable 05/11/21 09:53 RBC Morphology Not Reportable 05/11/21 09:53 Dimorphic RBCs Not Reportable 05/11/21 09:53 Polychromasia Not Reportable 05/11/21 09:53 Hypochromasia Not Reportable 05/11/21 09:53 Poikilocytosis Not Reportable 05/11/21 09:53 Anisocytosis 1+ 05/11/21 09:53 Microcytosis Not Reportable 05/11/21 09:53 Macrocytosis Not Reportable 05/11/21 09:53 Spherocytes Not Reportable 05/11/21 09:53 Pappenheimer Bodies Not Reportable 05/11/21 09:53 Sickle Cells Not Reportable 05/11/21 09:53 Target Cells Not Reportable 05/11/21 09:53 Tear Drop Cells Not Reportable 05/11/21 09:53 Ovalocytes Not Reportable 05/11/21 09:53 Helmet Cells Not Reportable 05/11/21 09:53 [place] Bodies Not Reportable 05/11/21 09:53 [place] Rings Not Reportable 05/11/21 09:53 Garvin Cells Not Reportable 05/11/21 09:53 Bite Cells Not Reportable 05/11/21 09:53 Crenated Cell Not Reportable 05/11/21 09:53 Elliptocytes Not Reportable 05/11/21 09:53 Acanthocytes (Spur) Not Reportable 05/11/21 09:53 Rouleaux Not Reportable 05/11/21 09:53 Hemoglobin C Crystals Not Reportable 05/11/21 09:53 Schistocytes Not Reportable 05/11/21 09:53 Malaria parasites Not Reportable 05/11/21 09:53 Angus Bodies Not Reportable 05/11/21 09:53 Hem Pathologist Commnt No 05/11/21 09:53 D-Dimer 730.16 ng/mlDDU (0-234) H 05/10/21 09:45 Sodium 135 mmol/L (137-145) L 05/14/21 06:05 Potassium 3.6 mmol/L (3.6-5.0) 05/14/21 06:05 Chloride 96.4 mmol/L (98-107) L 05/14/21 06:05 Carbon Dioxide 24 mmol/L (22-30) D 05/14/21 06:05 Anion Gap 18 mmol/L 05/14/21 06:05 BUN 67 mg/dL (9-20) H 05/14/21 06:05 Creatinine 5.2 mg/dL (0.8-1.3) H 05/14/21 06:05 Estimated GFR 15 ml/min 05/14/21 06:05 BUN/Creatinine Ratio 13 % 05/14/21 06:05 Glucose 112 mg/dL (75-100) H 05/14/21 06:05 Lactic Acid 2.10 mmol/L (0.7-2.0) H* 05/11/21 09:53 Calcium 8.4 mg/dL (8.4-10.2) 05/14/21 06:05 Ferritin 1426.0 ng/mL (30.0-300.0) H 05/10/21 09:45 Total Bilirubin 0.20 mg/dL (0.1-1.2) 05/10/21 09:45 AST 26 units/L (5-40) 05/10/21 09:45 ALT 13 units/L (7-56) 05/10/21 09:45 Alkaline Phosphatase 79 units/L (35-129) 05/10/21 09:45 Lactate Dehydrogenase 600 units/L (91-180) H 05/10/21 09:45 Lactate Dehydrogenase 623 units/L (91-180) H 05/10/21 09:45 Total Creatine Kinase 31 units/L (55-170) L 05/10/21 09:45 CK-MB (CK-2) < 1.0 ng/mL (0.0-4.0) 05/10/21 09:45 CK-MB (CK-2) Rel Index 3.2 (0-4) 05/10/21 09:45 Troponin T < 0.010 ng/mL (0.00-0.029) 05/10/21 09:45 C-Reactive Protein 8.90 mg/dL (0.00-1.30) H 05/10/21 09:45 C-Reactive Protein 9.00 mg/dL (0.00-1.30) H 05/10/21 09:45 NT-Pro-B Natriuret Pep 4065 pg/mL (0-450) H 05/10/21 09:45 Total Protein 7.6 g/dL (6.3-8.2) 05/10/21 09:45 Albumin 2.4 g/dL (3.9-5) L 05/10/21 09:45 Albumin/Globulin Ratio 0.5 % 05/10/21 09:45 Procalcitonin 6.81 ng/mL (<0.15) 05/10/21 09:45 TSH 2.390 mlU/mL (0.270-4.200) 05/10/21 09:45 Free T4 0.94 ng/dL (0.76-1.46) 05/10/21 09:45 Urine Color Yellow (Yellow) 05/10/21 13:49 Urine Turbidity Clear (Clear) 05/10/21 13:49 Urine pH 8.0 (5.0-7.0) H 05/10/21 13:49 Ur Specific [place] 1.025 (1.003-1.030) 05/10/21 13:49 Urine Protein 100 mg/dl mg/dL (Negative) 05/10/21 13:49 Urine Glucose (UA) Negative mg/dL (Negative) 05/10/21 13:49 Urine Ketones Negative mg/dL (Negative) 05/10/21 13:49 Urine Blood Negative (Negative) 05/10/21 13:49 Urine Nitrite Negative (Negative) 05/10/21 13:49 Ur Reducing Substances Not Reportable 05/10/21 13:49 Urine Bilirubin Negative (Negative) 05/10/21 13:49 Urine Ictotest Not Reportable 05/10/21 13:49 Urine Urobilinogen 0.0 mg/dL (<2.0) 05/10/21 13:49 Ur Leukocyte Esterase Negative (Negative) 05/10/21 13:49 Urine WBC (Auto) 2.0 /HPF (0.0-6.0) 05/10/21 13:49 Urine RBC (Auto) < 1.0 /HPF (0.0-6.0) 05/10/21 13:49 U Epithel Cells (Auto) 1.0 /HPF (0-13.0) 05/10/21 13:49 Coronavirus (PCR) Positive (Negative) A 05/11/21 09:00 Hepatitis A IgM Ab Non-reactive (NonReactive) 05/11/21 09:53 Hep Bs Antigen Non-reactive (Negative) 05/11/21 09:53 Hep B Core IgM Ab Non-reactive (NonReactive) 05/11/21 09:53 Hepatitis C Antibody Non-reactive (NonReactive) 05/11/21 09:53 Microbiology: Microbiology 05/10/21 11:28 Peripheral/Venous Blood Culture - Preliminary NO GROWTH AFTER 72 HOURS 05/10/21 11:28 Peripheral/Venous Blood Culture - Preliminary NO GROWTH AFTER 72 HOURS Krishnan/IV: Voiding Method Urinal Active Medications - Current Medications Current Medications: Generic Name Dose Route Start Last Admin Trade Name Freq PRN Reason Stop Dose Admin Acetaminophen 650 mg 05/10/21 11:26 Acetaminophen 325 Mg Tab PO Q4H PRN Pain MILD(1-3)/Fever >100.5/LANGLEY Albuterol 2.5 mg 05/10/21 11:26 05/14/21 09:45 Albuterol 2.5 Mg/3 Ml Nebu IH 2.5 mg Q4HRT PRN Administration Shortness Of Breath Ascorbic Acid 500 mg 05/10/21 22:00 05/14/21 10:04 Ascorbic Acid 500 Mg Tab PO 500 mg BID SANTOS Administration Atovaquone 750 mg 05/10/21 15:00 05/14/21 10:05 Atovaquone 750 Mg/5 Ml Oral Susp PO 750 mg BID SANTOS Administration Bumetanide 2 mg 05/10/21 20:00 05/14/21 08:00 Bumetanide 1 Mg/4 Ml Inj IV 2 mg TID SANTOS Administration Cholecalciferol 1,000 unit 05/11/21 10:00 05/14/21 10:06 Cholecalciferol (Vit D3) 400 Unit Tab PO 1,000 unit QDAY SANTOS Administration Darunavir 800 mg 05/10/21 14:45 05/14/21 10:00 Darunavir 800 Mg Tab PO 800 mg QDAY SANTOS Administration Dexamethasone 6 mg 05/14/21 10:00 05/14/21 10:02 Dexamethasone 4 Mg/Ml Vial IV 6 mg DAILY SANTOS Administration Dolutegravir Sodium 50 mg 05/10/21 15:00 05/14/21 10:00 Dolutegravir 50 Mg Tab PO 50 mg QDAY SANTOS Administration Heparin Sodium (Porcine) 5,000 unit 05/10/21 22:00 05/14/21 10:04 Heparin 5,000 Unit/1 Ml Vial SUB-Q 5,000 unit Q12HR SANTOS Administration Hydromorphone HCl 0.25 mg 05/10/21 11:26 Hydromorphone 1 Mg/1 Ml Inj IV Q4H PRN Pain, Moderate (4-6) Hydromorphone HCl 0.5 mg 05/10/21 11:26 Hydromorphone 1 Mg/1 Ml Inj IV Q23H PRN Pain , Severe (7-10) Sodium Chloride 100 mls @ 999 mls/hr 05/13/21 13:10 Nacl 0.9% IV TRENT PRN Hypotension Lamivudine 100 mg 05/10/21 15:00 05/14/21 09:59 Lamivudine 50 Mg/5 Ml Oral Liqd PO 100 mg DAILY SANTOS Administration Multivitamins/Minerals 1 each 05/11/21 10:00 05/14/21 10:04 Multivitamins,Ther W-Minerals Tab PO 1 each QDAY SANTOS Administration Ondansetron HCl 4 mg 05/10/21 11:26 Ondansetron 4 Mg/2 Ml Inj IV Q8H PRN Nausea And Vomiting Oxycodone/Acetaminophen 1 tab 05/10/21 11:26 05/13/21 22:22 Oxycodone /Acetaminophen 5-325mg Tab PO 1 tab Q16H PRN Administration Pain, Moderate (4-6) Ritonavir 100 mg 05/10/21 15:00 05/14/21 10:05 Ritonavir 100 Mg Tab PO 100 mg QDAY SANTOS Administration Sodium Bicarbonate 1,300 mg 05/10/21 14:00 05/14/21 08:00 Sodium Bicarbonate 650 Mg Tab PO 1,300 mg TID SANTOS Administration Sodium Chloride 10 ml 05/10/21 22:00 05/14/21 10:01 Sodium Chloride 0.9% 10 Ml Flush Syringe IV 10 ml BID SANTOS Administration Sodium Chloride 10 ml 05/10/21 11:26 Sodium Chloride 0.9% 10 Ml Flush Syringe IV PRN PRN LINE FLUSH Zinc Sulfate 220 mg 05/10/21 22:00 05/14/21 10:04 Zinc Sulfate 220 Mg Cap PO 220 mg BID SANTOS Administration Nutrition/Malnutrition Assess - Dietary Evaluation Nutrition/Malnutrition Findings: Nutrition Notes Start: 05/11/21 12:44 Freq: Status: Active Protocol: Document 05/11/21 12:44 DALY (Rec: 05/11/21 13:25 DALY [id number]) Nutrition Notes Need for Assessment generated from: Order,take off worker,MST,Low BMI Initial or Follow up Assessment Current Diagnosis Acute Kidney Injury,CKD (stage V CKD),Sepsis,Respiratory Failure,Malnutrition Other Pertinent Diagnosis [id number]/Pneumonia, BILLIE/ CKD/ESRD+HD, HIV/Nephropathy/ AIDS. Current Diet NPO (05/11 00:01), D Suppl (D 05/11). Labs/Tests 05/11: CO2 17, BUN 104, Crea 8 .2, Glu 132. Pertinent Medications 05/11: Vit C, Vit D3, ZnSO4, others nutritionally unremarkable. Height 6 ft 2 in Weight 55.8 kg [place] Body Weight (kg) 86.36 BMI 15.7 Intake Prior to Admission Poor Weight change and time frame Pt states having loss more than 34 lbs recently without trying. Weight Status Underweight Subjective/Other Information RD consult for Low BMI and risk for malnutrition assessments, and dietary supplementation request. Pt is currently NPO. Pt underwent procedure 05/11: Fluoroscopic-guided placement of a right internal jugular tunneled cuffed hemodyalisis catheter. well tolerated, according to Progress notes. Pt's poor prognosis could require mechanical ventilation . Dietary supplements required by MD, ONS ordered. Pt's Low BMI seems to correspond to a natural body composition, and also related to a sudden loss of body weight with chronic malnutrition, as mentioned in the Physical Assessment History and the Progress notes . Percent of energy/protein needs met: Pt is currently on NPO. Prescribed Dietary Supplements will compensate for possible poor or insufficient PO intake of meals with 1,275 Kcal and 57 g of protein. Burn Absent Trauma Absent GI Symptoms Diarrhea Food Allergy No Skin Integrity/Comment Clear, warm, dry. Current % PO Other Minimum of two criteria Yes Interpretation of Weight Loss (severe) >10% in 6 months Body Fat Depletion Moderate depletion (severe) Reduced Stock Puller Strength N/A (non-severe) Protein-Calorie Malnutrition Severe #1 Nutrition Diagnosis Underweight Comments: Pt's Low BMI seems to correspond to a natural body composition, and also related to a sudden loss of body weight with chronic malnutrition, as mentioned in the Physical Assessment History and the Progress notes . Etiology Uncertain As Evidenced by Signs and Symptoms Pt's Low BMI. Is patient on ventilator? No Is Patient Ambulatory and/or Out of Bed Yes REE-([facility]-ambulatory/OOB) [ 1999.075 NUTR.[id number]] Calculation Used for Recommendations [facility] Additional Notes Protein: 1.2-1.5 g/Kg; 67-84 g /day. Fluids: 1 ml/Kcal, or as per MD. Nutrition Intervention Change Diet Order: Advance to PO diet when medically pertinent. Add Supplement/Snack (indicate name/kcal Start 8 fl oz Nepro w/ /protein ) CARBSTEADY; TID. Provides kCal: 1,275 Provides Protein (gm) 57 Goal #1 Compensate, through dietary supplementation, for possible poor or insufficient PO intake of meals during LOS. Goal #2 Maintain body weight within +/ -3% of admission body weight during LOS. Follow-Up By: 05/14/21 Additional Comments When pertinent, monitor food and ONS tolerance, %PO intake of meals, and BM.
[2021-05-14 10:40] LABS: Total Cells Counted 100
[2021-05-14 10:41] LABS: Basophils % (Manual) 0 % (0.0-1.8); Eosinophils % (Manual) 0 % (0.0-4.3); Platelet Clumps Rare; Platelet Estimate Consistent w Auto; RBC Morphology Normal
--- NOTE | 2021-05-14 10:56 | XRay Report ---
CHEST 1 VIEW 05/14/2021 10:24 AM INDICATION / CLINICAL INFORMATION: congestion. COVID positive. COMPARISON: 05/10/21 FINDINGS: SUPPORT DEVICES: Interval placement of right PermCath with the tip at the cavoatrial junction. HEART / MEDIASTINUM: Stable. LUNGS / PLEURA: Bilateral pulmonary opacities are unchanged. No pneumothorax. ADDITIONAL FINDINGS: No significant additional findings. IMPRESSION: 1. Central line in expected position. 2. Stable bilateral pulmonary opacities. Signer Name: Shan Shelby MD Signed: 05/14/2021 10:52 AM Workstation Name: [id number]
--- NOTE | 2021-05-14 13:26 | Progress Note ---
Assessment and Plan Cultures: 05/10/2021 blood culture: no growth 05/11/2021 COVID-19 PCR: Positive 05/11/2021 serum cryptococcal antigen: Negative Previous admission labs reviewed: Negative for syphilis, C. difficile PCR, hepatitis panel 04/24/2021 COVID-19 PCR: Positive A/P: 40-year-old male who was recently hospitalized and discharged earlier this month with a new diagnosis of HIV and suspected AIDS along with renal dysfunction. He was also diagnosed with COVID-19 during that admission. He was recommended outpatient follow-up with [facility] department. Now readmitted with generalized weakness, worsening shortness of breath: #HIV, suspected AIDS, ?HIVAN #COVID-19: Initially tested positive on 04/24/2021, not a candidate for Remdesivir. #Acute hypoxic resp failure: ?COVID v/s renal failure v/s PCP pneumonia. #Acute renal failure: ?HIVAN. Nephrology following. Now on HD. Recs: -f/u HIV viral load, CD4 count, genotype, 1 3 beta D glucan -Mepron switched to PO Bactrim DS 1 tab BID, complete 21 days, then 0.5 tab post dialysis MWF for senior care prophylaxis -taper steroids over 21 days -Given concern for HIVAN, ART was started on 05/10/2021: lamivudine 100 mg daily, darunavir + ritonavir, dolutegravir -Will need social work/pharmacy assistance to give him at least 2 weeks of ART supply if possible, till patient follows up at HIV clinic ([facility] or [place]) Ramy Harper MD, FACP, GENNARO [facility] ([facility] O: [phone] F: [phone] Subjective Date of service: 05/14/21 Interval history: No fever. Remains on oxygen by nasal cannula. Has no complaints. Objective - Exam Narrative Exam: Physical Exam Constitutional: Alert, cooperative. No acute distress Head, Ears, Nose: Normocephalic, atraumatic. External ears, nose normal Eyes: Conjunctivae/corneas clear. No icterus. No ptosis. Neck: Supple, no meningeal signs Cardiovascular: S1, S2 + Respiratory: AE fair b/l, occ crackles GI: Soft, non-tender; bowel sounds normal. No peritoneal signs Musculoskeletal: No pedal edema, no cyanosis. Skin: No rash or abscess Hem/Lymphatic: No palpable cervical or supraclavicular nodes. No lymphangitis Psych: Mood ok. Affect normal Neurological: Awake, alert, oriented. No gross abnormality - Constitutional Vitals: Vital Signs Temp Pulse Resp BP Pulse Ox 98.1 F 104 H 18 150/104 100 05/14/21 05:03 05/14/21 09:45 05/14/21 09:45 05/14/21 05:03 05/14/21 09:48 Temperature -Last 24 Hours Temperature 98.1 F Temperature 98.2 F Temperature 98.2 F Temperature 97.7 F Temperature 97.2 F - Labs CBC & Chem 7: 05/14/21 06:05 05/14/21 06:05 Labs: Abnormal lab results 05/14/21 05/14/21 Range/Units 06:05 06:05 WBC 13.3 H (4.5-11.0) K/mm3 RBC 2.93 L (3.65-5.03) M/mm3 Hgb 8.6 L (11.8-15.2) gm/dl Hct 27.4 L (35.5-45.6) % MCHC 31 L (32-34) % Seg Neuts % (Manual) 93.0 H (40.0-70.0) % Lymphocytes % (Manual) 0 L (13.4-35.0) % Seg Neutrophils # Man 12.4 H (1.8-7.7) K/mm3 Lymphocytes # (Manual) 0.0 L (1.2-5.4) K/mm3 Sodium 135 L (137-145) mmol/L Chloride 96.4 L (98-107) mmol/L BUN 67 H (9-20) mg/dL Creatinine 5.2 H (0.8-1.3) mg/dL Glucose 112 H (75-100) mg/dL
[2021-05-14 13:57] LABS: HIV-1 RNA QN PCR 4.71 Log cps/mL
[2021-05-14] MEDS: SULFAMETHOXAZOLE/TRIMETHOPRIM 800/160MG DS TAB PO SCH ×2 (14:11→21:19)
[2021-05-14] MEDS ORDERED: ALPRAZolam 0.5 MG TAB PO STA (16:21)
--- NOTE | 2021-05-14 16:57 | Progress Note ---
Assessment and Plan (1) Sepsis (2) Pneumonia (3) Malnutrition (4) Acute respiratory failure with hypoxia (5) COVID-19 (6) HIV (human immunodeficiency virus infection) (7) Progressive CKD likely ESRD kidney disease could be related to HIVAN Renal US showed CKD signs R&B of HD was discussed with patient who agreed and consented to HD. s/p TDC may 11, HD#1 may 11, HD#4 today, Eval for HD need tomorrow based on volume status. CM consulted to place patient at [facility]. Renally dose medications Strict I&O's daily Obtain daily weights Continue to monitor renal function closely Subjective Date of service: 05/14/21 Interval history: HD today. NAD. Objective - Exam Narrative Exam: General appearance: Present: mild distress, cachectic - EENT Eyes: Present: PERRL ENT: hearing intact, clear oral mucosa - Neck Neck: Present: supple, normal ROM - Respiratory Respiratory effort: labored Respiratory: bilateral: diminished, rhonchi - Cardiovascular Rhythm: other (Tachycardia) Heart Sounds: Present: S1 & S2. Absent: rub, click - Extremities Extremities: pulses symmetrical, No edema Peripheral Pulses: abnormal (Capillary refill greater than 3.5 seconds) - Abdominal General gastrointestinal: Present: soft, non-tender, non-distended, normal bowel sounds Male genitourinary: Present: normal - Integumentary Integumentary: Present: clear, dry, clammy, decreased turgor - Musculoskeletal Musculoskeletal: generalized weakness - Psychiatric Psychiatric: appropriate mood/affect, intact judgment & insight - Neurologic Neurologic: CNII-XII intact, no focal deficits, moves all extremities, no gait normal - Vital Signs Vital signs: Vital Signs - 12hr 05/14/21 05/14/21 05/14/21 05:03 09:45 09:48 Temperature 98.1 F Pulse Rate 100 H Pulse Rate [ 104 H Bilateral Throughout] Respiratory 20 Rate Respiratory 18 Rate [Bilateral Throughout] Blood Pressure 150/104 O2 Sat by Pulse 96 100 Oximetry 05/14/21 10:00 Temperature Pulse Rate Pulse Rate [ Bilateral Throughout] Respiratory Rate Respiratory Rate [Bilateral Throughout] Blood Pressure O2 Sat by Pulse 99 Oximetry - Lab 05/14/21 06:05 05/14/21 06:05 Most recent lab results Calcium 8.4 mg/dL (8.4-10.2) 05/14/21 06:05 Medications & Allergies - Medications Allergies/Adverse Reactions: Allergies No Known Allergies Allergy (Verified 04/20/21 08:43) Home Medications: Home Medications Medication Instructions Recorded Confirmed Last Taken Type Multivit-Min/Folic/Vit K/Lycop 1 tab PO QDAY 04/21/21 05/13/21 3 Days Ago History [Men's Multivitamin Tablet] ~04/18/21 Sodium Bicarbonate 1,300 mg PO TID #90 tablet 05/01/21 05/13/21 Unknown Rx Active Medications: Generic Name Dose Route Start Last Admin Trade Name Freq PRN Reason Stop Dose Admin Acetaminophen 650 mg 05/10/21 11:26 Acetaminophen 325 Mg Tab PO Q4H PRN Pain MILD(1-3)/Fever >100.5/LANGLEY Albuterol 2.5 mg 05/10/21 11:26 05/14/21 09:45 Albuterol 2.5 Mg/3 Ml Nebu IH 2.5 mg Q4HRT PRN Administration Shortness Of Breath Ascorbic Acid 500 mg 05/10/21 22:00 05/14/21 10:04 Ascorbic Acid 500 Mg Tab PO 500 mg BID SANTOS Administration Bumetanide 2 mg 05/10/21 20:00 05/14/21 14:10 Bumetanide 1 Mg/4 Ml Inj IV 2 mg TID SANTOS Administration Cholecalciferol 1,000 unit 05/11/21 10:00 05/14/21 10:06 Cholecalciferol (Vit D3) 400 Unit Tab PO 1,000 unit QDAY SANTOS Administration Darunavir 800 mg 05/10/21 14:45 05/14/21 10:00 Darunavir 800 Mg Tab PO 800 mg QDAY SANTOS Administration Dolutegravir Sodium 50 mg 05/10/21 15:00 05/14/21 10:00 Dolutegravir 50 Mg Tab PO 50 mg QDAY SANTOS Administration Heparin Sodium (Porcine) 5,000 unit 05/10/21 22:00 05/14/21 10:04 Heparin 5,000 Unit/1 Ml Vial SUB-Q 5,000 unit Q12HR SANTOS Administration Hydromorphone HCl 0.25 mg 05/10/21 11:26 Hydromorphone 1 Mg/1 Ml Inj IV Q4H PRN Pain, Moderate (4-6) Hydromorphone HCl 0.5 mg 05/10/21 11:26 Hydromorphone 1 Mg/1 Ml Inj IV Q23H PRN Pain , Severe (7-10) Sodium Chloride 100 mls @ 999 mls/hr 05/13/21 13:10 Nacl 0.9% IV TRENT PRN Hypotension Lamivudine 100 mg 05/10/21 15:00 05/14/21 09:59 Lamivudine 50 Mg/5 Ml Oral Liqd PO 100 mg DAILY SANTOS Administration Multivitamins/Minerals 1 each 05/11/21 10:00 05/14/21 10:04 Multivitamins,Ther W-Minerals Tab PO 1 each QDAY SANTOS Administration Ondansetron HCl 4 mg 05/10/21 11:26 Ondansetron 4 Mg/2 Ml Inj IV Q8H PRN Nausea And Vomiting Oxycodone/Acetaminophen 1 tab 05/10/21 11:26 05/13/21 22:22 Oxycodone /Acetaminophen 5-325mg Tab PO 1 tab Q16H PRN Administration Pain, Moderate (4-6) Prednisone 30 mg 05/15/21 10:00 Prednisone 10 Mg Tab PO QDAY SANTOS Ritonavir 100 mg 05/10/21 15:00 05/14/21 10:05 Ritonavir 100 Mg Tab PO 100 mg QDAY SANTOS Administration Sodium Bicarbonate 1,300 mg 05/10/21 14:00 05/14/21 14:11 Sodium Bicarbonate 650 Mg Tab PO 1,300 mg TID SANTOS Administration Sodium Chloride 10 ml 05/10/21 22:00 05/14/21 10:01 Sodium Chloride 0.9% 10 Ml Flush Syringe IV 10 ml BID SANTOS Administration Sodium Chloride 10 ml 05/10/21 11:26 Sodium Chloride 0.9% 10 Ml Flush Syringe IV PRN PRN LINE FLUSH Trimethoprim/Sulfamethoxazole 1 each 05/14/21 14:00 05/14/21 14:11 Sulfamethoxazole/Trimethoprim 800/160mg Ds Tab PO 1 each Q12HR SANTOS Administration Protocol Zinc Sulfate 220 mg 05/10/21 22:00 05/14/21 10:04 Zinc Sulfate 220 Mg Cap PO 220 mg BID SANTOS Administration
--- NOTE | 2021-05-15 09:38 | Progress Note ---
Assessment and Plan Assessment and plan: 40-year-old male who was recently hospitalized and discharged earlier this month with a new diagnosis of HIV and suspected AIDS with associated renal dysfunction. Patient was also noted to have a diagnosis of COVID-19 pneumonia during that admission but not hypoxic at that time. Patient was recommended for outpatient follow-up with [facility]. 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 COVID-19. Patient initially tested + 04/24/2021 but not a candidate for remdesivir. Acute hypoxic respiratory failure. Etiology secondary to Covid versus renal failure versus PCP pneumonia. 05/11/2021. ID has been consulted and we will follow up HIV viral load, CD4 count and genotype. Follow-up LDH 1 3 beta D glucan. ID started Mepron to cover P MARTINEZ and avoiding Bactrim due to renal failure. We started steroids given the new hypoxia. ID also initiated ART with lamivudine, darunavir plus ritonavir and dolutegravir given the possibility of HIVAN. Consider pulmonary consultation. Nephrology following. Renal ultrasound shows signs of CKD. Nephrology to discuss hemodialysis initiation. Continue strict I's and O's daily and monitor renal function closely 05/12/2021. Patient is s/p placement of a right internal jugular tunneled cuffed hemodialysis catheter and initiation of hemodialysis on 05/11/2021. Patient is also undergo further hemodialysis today. CM consult to place patient at [facility]. We will follow up HIV viral load, CD4 count and genotype. Follow-up LDH 1 3 beta D glucan. ID started Mepron to cover P MARTINEZ and avoiding Bactrim due to renal failure. ID also initiated ART with lamivudine, darunavir plus ritonavir and dolutegravir given the possibility of HIVAN. Continue steroids given the hypoxia. Respiratory status has significantly improved after hemodialysis. I believe volume overload was the most si gnificantly contributing factor/etiology. Follow-up serial chest x-ray. Patient currently with 2 L nasal cannula satting at 99% 05/13/2021. Continue hemodialysis per nephrology recommendations. Await outpatient arrangements for hemodialysis unit. We will follow up HIV viral load, CD4 count and genotype. Follow-up LDH 1 3 beta D glucan. ID started Mepron to cover P MARTINEZ and avoiding Bactrim due to renal failure. ID also initiated ART with lamivudine, darunavir plus ritonavir and dolutegravir given the possibility of HIVAN. Continue steroids given the hypoxia and change from Solu-Medrol IV to dexamethasone. Procalcitonin level was elevated at 6. We will continue IV antibiotics per ID recommendations 05/14/2021. Continue hemodialysis per nephrology recommendations. Await outpatient arrangements for hemodialysis unit. We will follow up HIV viral load, CD4 count and genotype. Follow-up LDH 1 3 beta D glucan. ID started Mepron to cover P MARTINEZ and avoiding Bactrim due to renal failure. ID also initiated ART with lamivudine, darunavir plus ritonavir and dolutegravir given the possibility of HIVAN. Continue dexamethasone. Patient to follow-up with health department in early May. Case management follow-up with regards to home ART before follow-up with the health department . Continue hemodialysis per nephrology recommendations. Await outpatient arrangements for hemodialysis unit. Patient wants anxiety medication prior to dialysis. We will start Xanax 0.25 mg as needed. Continue lamivudine, darunavir plus ritonavir and dolutegravir given the possibility of HIVAN. Continue dexamethasone. Patient to follow-up with health department in early May. Case management follow-up with regards to home ART before follow-up with the health department History Interval history: No new issues overnight Hospitalist Physical - Constitutional Vitals: Temp Pulse Resp BP Pulse Ox 97.0 F L 136 H 20 134/100 98 05/14/21 20:43 05/14/21 20:44 05/14/21 20:43 05/14/21 20:43 05/14/21 22:00 General appearance: Present: no acute distress, cachectic - EENT Eyes: Present: PERRL, EOM intact ENT: hearing intact, clear oral mucosa, dentition normal - Neck Neck: Present: supple, normal ROM - Respiratory Respiratory effort: normal Respiratory: bilateral: CTA - Cardiovascular Rhythm: regular Heart Sounds: Present: S1 & S2. Absent: gallop, rub - Extremities Extremities: no ischemia, No edema, Full ROM - Abdominal General gastrointestinal: soft, non-tender, non-distended, normal bowel sounds - Integumentary Integumentary: Present: clear, warm, dry - Neurologic Neurologic: CNII-XII intact, moves all extremities HEART Score - HEART Score Troponin: Troponin T < 0.010 ng/mL (0.00-0.029) 05/10/21 09:45 Results - Labs CBC & Chem 7: 05/14/21 06:05 05/14/21 06:05 Labs: Laboratory Last Values WBC 13.3 K/mm3 (4.5-11.0) H 05/14/21 06:05 RBC 2.93 M/mm3 (3.65-5.03) L 05/14/21 06:05 Hgb 8.6 gm/dl (11.8-15.2) L 05/14/21 06:05 Hct 27.4 % (35.5-45.6) L 05/14/21 06:05 MCV 94 fl (84-94) 05/14/21 06:05 MCH 29 pg (28-32) 05/14/21 06:05 MCHC 31 % (32-34) L 05/14/21 06:05 RDW 14.0 % (13.2-15.2) 05/14/21 06:05 Plt Count 305 K/mm3 (140-440) 05/14/21 06:05 Add Manual Diff Complete 05/14/21 06:05 Total Counted 100 05/14/21 06:05 Seg Neutrophils % [employer] 05/11/21 09:53 Seg Neuts % (Manual) 93.0 % (40.0-70.0) H 05/14/21 06:05 Band Neutrophils % 0 % 05/14/21 06:05 Lymphocytes % (Manual) 0 % (13.4-35.0) L 05/14/21 06:05 Reactive Lymphs % (Man) 0 % 05/14/21 06:05 Monocytes % (Manual) 6.0 % (0.0-7.3) 05/14/21 06:05 Eosinophils % (Manual) 0 % (0.0-4.3) 05/14/21 06:05 Basophils % (Manual) 0 % (0.0-1.8) 05/14/21 06:05 Metamyelocytes % 1.0 % 05/14/21 06:05 Myelocytes % 0 % 05/14/21 06:05 Promyelocytes % 0 % 05/14/21 06:05 Blast Cells % 0 % 05/14/21 06:05 Nucleated RBC % Not Reportable 05/14/21 06:05 Seg Neutrophils # Man 12.4 K/mm3 (1.8-7.7) H 05/14/21 06:05 Band Neutrophils # 0.0 K/mm3 05/14/21 06:05 Abs Lymphs (Manual) 291 cells/uL (850-3900) L 05/10/21 17:09 Lymphocytes # (Manual) 0.0 K/mm3 (1.2-5.4) L 05/14/21 06:05 Abs React Lymphs (Man) 0.0 K/mm3 05/14/21 06:05 Monocytes # (Manual) 0.8 K/mm3 (0.0-0.8) 05/14/21 06:05 Eosinophils # (Manual) 0.0 K/mm3 (0.0-0.4) 05/14/21 06:05 Basophils # (Manual) 0.0 K/mm3 (0.0-0.1) 05/14/21 06:05 Metamyelocytes # 0.1 K/mm3 05/14/21 06:05 Myelocytes # 0.0 K/mm3 05/14/21 06:05 Promyelocytes # 0.0 K/mm3 05/14/21 06:05 Blast Cells # 0.0 K/mm3 05/14/21 06:05 WBC Morphology Not Reportable 05/14/21 06:05 Hypersegmented Neuts Not Reportable 05/14/21 06:05 Hyposegmented Neuts Not Reportable 05/14/21 06:05 Hypogranular Neuts Not Reportable 05/14/21 06:05 Smudge Cells Not Reportable 05/14/21 06:05 Toxic Granulation Not Reportable 05/14/21 06:05 Toxic Vacuolation Not Reportable 05/14/21 06:05 Dohle Bodies Not Reportable 05/14/21 06:05 Pelger-Huet Anomaly Not Reportable 05/14/21 06:05 Karishma Rods Not Reportable 05/14/21 06:05 Platelet Estimate Consistent w auto 05/14/21 06:05 Clumped Platelets Rare 05/14/21 06:05 Plt Clumps, EDTA Not Reportable 05/14/21 06:05 Large Platelets Not Reportable 05/14/21 06:05 Giant Platelets Not Reportable 05/14/21 06:05 Platelet Satelliting Not Reportable 05/14/21 06:05 Plt Morphology Comment Not Reportable 05/14/21 06:05 RBC Morphology Normal 05/14/21 06:05 Dimorphic RBCs Not Reportable 05/14/21 06:05 Polychromasia Not Reportable 05/14/21 06:05 Hypochromasia Not Reportable 05/14/21 06:05 Poikilocytosis Not Reportable 05/14/21 06:05 Anisocytosis Not Reportable 05/14/21 06:05 Microcytosis Not Reportable 05/14/21 06:05 Macrocytosis Not Reportable 05/14/21 06:05 Spherocytes Not Reportable 05/14/21 06:05 Pappenheimer Bodies Not Reportable 05/14/21 06:05 Sickle Cells Not Reportable 05/14/21 06:05 Target Cells Not Reportable 05/14/21 06:05 Tear Drop Cells Not Reportable 05/14/21 06:05 Ovalocytes Not Reportable 05/14/21 06:05 Helmet Cells Not Reportable 05/14/21 06:05 Bragg-Ferdinand Bodies Not Reportable 05/14/21 06:05 Telferner Rings Not Reportable 05/14/21 06:05 [place] Cells Not Reportable 05/14/21 06:05 Bite Cells Not Reportable 05/14/21 06:05 Crenated Cell Not Reportable 05/14/21 06:05 Elliptocytes Not Reportable 05/14/21 06:05 Acanthocytes (Spur) Not Reportable 05/14/21 06:05 Rouleaux Not Reportable 05/14/21 06:05 Hemoglobin C Crystals Not Reportable 05/14/21 06:05 Schistocytes Not Reportable 05/14/21 06:05 Malaria parasites Not Reportable 05/14/21 06:05 Angus Bodies Not Reportable 05/14/21 06:05 Hem Pathologist Commnt No 05/14/21 06:05 D-Dimer 730.16 ng/mlDDU (0-234) H 05/10/21 09:45 Sodium 135 mmol/L (137-145) L 05/14/21 06:05 Potassium 3.6 mmol/L (3.6-5.0) 05/14/21 06:05 Chloride 96.4 mmol/L (98-107) L 05/14/21 06:05 Carbon Dioxide 24 mmol/L (22-30) D 05/14/21 06:05 Anion Gap 18 mmol/L 05/14/21 06:05 BUN 67 mg/dL (9-20) H 05/14/21 06:05 Creatinine 5.2 mg/dL (0.8-1.3) H 05/14/21 06:05 Estimated GFR 15 ml/min 05/14/21 06:05 BUN/Creatinine Ratio 13 % 05/14/21 06:05 Glucose 112 mg/dL (75-100) H 05/14/21 06:05 Lactic Acid 2.10 mmol/L (0.7-2.0) H* 05/11/21 09:53 Calcium 8.4 mg/dL (8.4-10.2) 05/14/21 06:05 Ferritin 1426.0 ng/mL (30.0-300.0) H 05/10/21 09:45 Total Bilirubin 0.20 mg/dL (0.1-1.2) 05/10/21 09:45 AST 26 units/L (5-40) 05/10/21 09:45 ALT 13 units/L (7-56) 05/10/21 09:45 Alkaline Phosphatase 79 units/L (35-129) 05/10/21 09:45 Lactate Dehydrogenase 600 units/L (91-180) H 05/10/21 09:45 Lactate Dehydrogenase 623 units/L (91-180) H 05/10/21 09:45 Total Creatine Kinase 31 units/L (55-170) L 05/10/21 09:45 CK-MB (CK-2) < 1.0 ng/mL (0.0-4.0) 05/10/21 09:45 CK-MB (CK-2) Rel Index 3.2 (0-4) 05/10/21 09:45 Troponin T < 0.010 ng/mL (0.00-0.029) 05/10/21 09:45 C-Reactive Protein 8.90 mg/dL (0.00-1.30) H 05/10/21 09:45 C-Reactive Protein 9.00 mg/dL (0.00-1.30) H 05/10/21 09:45 NT-Pro-B Natriuret Pep 4065 pg/mL (0-450) H 05/10/21 09:45 Total Protein 7.6 g/dL (6.3-8.2) 05/10/21 09:45 Albumin 2.4 g/dL (3.9-5) L 05/10/21 09:45 Albumin/Globulin Ratio 0.5 % 05/10/21 09:45 Procalcitonin 6.81 ng/mL (<0.15) 05/10/21 09:45 TSH 2.390 mlU/mL (0.270-4.200) 05/10/21 09:45 Free T4 0.94 ng/dL (0.76-1.46) 05/10/21 09:45 Urine Color Yellow (Yellow) 05/10/21 13:49 Urine Turbidity Clear (Clear) 05/10/21 13:49 Urine pH 8.0 (5.0-7.0) H 05/10/21 13:49 Ur Specific [place] 1.025 (1.003-1.030) 05/10/21 13:49 Urine Protein 100 mg/dl mg/dL (Negative) 05/10/21 13:49 Urine Glucose (UA) Negative mg/dL (Negative) 05/10/21 13:49 Urine Ketones Negative mg/dL (Negative) 05/10/21 13:49 Urine Blood Negative (Negative) 05/10/21 13:49 Urine Nitrite Negative (Negative) 05/10/21 13:49 Ur Reducing Substances Not Reportable 05/10/21 13:49 Urine Bilirubin Negative (Negative) 05/10/21 13:49 Urine Ictotest Not Reportable 05/10/21 13:49 Urine Urobilinogen 0.0 mg/dL (<2.0) 05/10/21 13:49 Ur Leukocyte Esterase Negative (Negative) 05/10/21 13:49 Urine WBC (Auto) 2.0 /HPF (0.0-6.0) 05/10/21 13:49 Urine RBC (Auto) < 1.0 /HPF (0.0-6.0) 05/10/21 13:49 U Epithel Cells (Auto) 1.0 /HPF (0-13.0) 05/10/21 13:49 Lymph Enumerat CD4/CD8 0.00 (0.86-5.00) L 05/10/21 17:09 % CD3 Cells 78 % (57-85) 05/10/21 17:09 Absolute CD3 Count 228 cells/uL (840-3060) L 05/10/21 17:09 % CD4 Cells 0 % (30-61) L 05/10/21 17:09 Absolute CD4 Count 0 cells/uL (490-1740) L 05/10/21 17:09 % CD8 Cells 78 % (12-42) H 05/10/21 17:09 Absolute CD8 Count 239 cells/uL (180-1170) 05/10/21 17:09 % CD19 Cells 1 % (6-29) L 05/10/21 17:09 Absolute CD19 Count 2 cells/uL (110-660) L 05/10/21 17:09 Coronavirus (PCR) Positive (Negative) A 05/11/21 09:00 Hepatitis A IgM Ab Non-reactive (NonReactive) 05/11/21 09:53 Hep Bs Antigen Non-reactive (Negative) 05/11/21 09:53 Hep B Core IgM Ab Non-reactive (NonReactive) 05/11/21 09:53 Hepatitis C Antibody Non-reactive (NonReactive) 05/11/21 09:53 HIV-1 RNA PCR copies/ml 28471 Copies/mL H 05/10/21 17:09 HIV-1 RNA (PCR) log 4.71 Log cps/mL H 05/10/21 17:09 Miscellaneous Test Flexitest 1 H 05/11/21 12:41 Microbiology: Microbiology 05/10/21 11:28 Peripheral/Venous Blood Culture - Preliminary NO GROWTH AFTER 4 DAYS 05/10/21 11:28 Peripheral/Venous Blood Culture - Preliminary NO GROWTH AFTER 4 DAYS Krishnan/IV: Voiding Method Urinal Active Medications - Current Medications Current Medications: Generic Name Dose Route Start Last Admin Trade Name Freq PRN Reason Stop Dose Admin Acetaminophen 650 mg 05/10/21 11:26 Acetaminophen 325 Mg Tab PO Q4H PRN Pain MILD(1-3)/Fever >100.5/[place] Albuterol 2.5 mg 05/10/21 11:26 05/14/21 09:45 Albuterol 2.5 Mg/3 Ml Nebu IH 2.5 mg Q4HRT PRN Administration Shortness Of Breath Ascorbic Acid 500 mg 05/10/21 22:00 05/14/21 21:11 Ascorbic Acid 500 Mg Tab PO 500 mg BID SANTOS Administration Bumetanide 2 mg 05/10/21 20:00 05/14/21 21:12 Bumetanide 1 Mg/4 Ml Inj IV 2 mg TID SANTOS Administration Cholecalciferol 1,000 unit 05/11/21 10:00 05/14/21 10:06 Cholecalciferol (Vit D3) 400 Unit Tab PO 1,000 unit QDAY SANTOS Administration Darunavir 800 mg 05/10/21 14:45 05/14/21 10:00 Darunavir 800 Mg Tab PO 800 mg QDAY SANTOS Administration Dolutegravir Sodium 50 mg 05/10/21 15:00 05/14/21 10:00 Dolutegravir 50 Mg Tab PO 50 mg QDAY SANTOS Administration Heparin Sodium (Porcine) 5,000 unit 05/10/21 22:00 05/14/21 21:12 Heparin 5,000 Unit/1 Ml Vial SUB-Q 5,000 unit Q12HR SANTOS Administration Hydromorphone HCl 0.25 mg 05/10/21 11:26 Hydromorphone 1 Mg/1 Ml Inj IV Q4H PRN Pain, Moderate (4-6) Hydromorphone HCl 0.5 mg 05/10/21 11:26 Hydromorphone 1 Mg/1 Ml Inj IV Q23H PRN Pain , Severe (7-10) Sodium Chloride 100 mls @ 999 mls/hr 05/13/21 13:10 Nacl 0.9% IV TRENT PRN Hypotension Lamivudine 100 mg 05/10/21 15:00 05/14/21 09:59 Lamivudine 50 Mg/5 Ml Oral Liqd PO 100 mg DAILY [facility] Administration Multivitamins/Minerals 1 each 05/11/21 10:00 05/14/21 10:04 Multivitamins,Ther W-Minerals Tab PO 1 each QDAY SANTOS Administration Ondansetron HCl 4 mg 05/10/21 11:26 Ondansetron 4 Mg/2 Ml Inj IV Q8H PRN Nausea And Vomiting Oxycodone/Acetaminophen 1 tab 05/10/21 11:26 05/13/21 22:22 Oxycodone /Acetaminophen 5-325mg Tab PO 1 tab Q16H PRN Administration Pain, Moderate (4-6) Prednisone 30 mg 05/15/21 10:00 Prednisone 10 Mg Tab PO QDAY SANTOS Ritonavir 100 mg 05/10/21 15:00 05/14/21 10:05 Ritonavir 100 Mg Tab PO 100 mg QDAY SANTOS Administration Sodium Bicarbonate 1,300 mg 05/10/21 14:00 05/14/21 21:12 Sodium Bicarbonate 650 Mg Tab PO 1,300 mg TID SANTOS Administration Sodium Chloride 10 ml 05/10/21 22:00 05/14/21 21:13 Sodium Chloride 0.9% 10 Ml Flush Syringe IV 10 ml BID SANTOS Administration Sodium Chloride 10 ml 05/10/21 11:26 Sodium Chloride 0.9% 10 Ml Flush Syringe IV PRN PRN LINE FLUSH Trimethoprim/Sulfamethoxazole 1 each 05/14/21 14:00 05/14/21 21:19 Sulfamethoxazole/Trimethoprim 800/160mg Ds Tab PO 1 each Q12HR SANTOS Administration Protocol Zinc Sulfate 220 mg 05/10/21 22:00 05/14/21 21:11 Zinc Sulfate 220 Mg Cap PO 220 mg BID SANTOS Administration Nutrition/Malnutrition Assess - Dietary Evaluation Nutrition/Malnutrition Findings: Nutrition Notes Start: 05/11/21 12:44 Freq: Status: Active Protocol: Document 05/14/21 11:10 ERNESTO (Rec: 05/14/21 11:16 ERNESTO [id number]) Nutrition Notes Initial or Follow up Reassessment Current Diagnosis Respiratory Failure Other Pertinent Diagnosis HIV/AIDS, ARF, COVID-19 (+) Current Diet Renal + Nepro TID Labs/Tests Na 135 BUN 67 Cr 5.2 Pertinent Medications Decadron, MVI with minerals, Bumex Height 6 ft 2 in Weight 55.8 kg [place] Body Weight (kg) 86.36 BMI 15.7 Weight Status Underweight Subjective/Other Information Pt consumed 50% of 2 meals on 05/12; no other PO intakes documented. HD initiated. Spoke with pt via phone (14:55 ). He says his appetite is good, however, his meals are usually cold when he gets them ; he has been ordering peanut butter and jelly sandwiches ( x2) daily and drinking Nepro shakes. Percent of energy/protein needs met: 52% energy 57% pro (excludes ONS) Burn Absent Trauma Absent Current % PO Fair (50-74%) Minimum of two criteria Yes #1 Nutrition Diagnosis Underweight Diagnosis Progress(for reassessment Continues documentation) Is patient on ventilator? No Is Patient Ambulatory and/or Out of Bed Yes REE-([facility]-ambulatory/OOB) [ 1998.075 [id number]] Kcal/Kg value to use for calculation 45 Approximate Energy Requirements Using 2511 kcal/Kg Calculation Used for Recommendations Kcal/kg Additional Notes Pro needs >1.2g/kg: >67g/day Fluid needs 1-1.5L/day Nutrition Intervention Change Diet Order: Continue current diet order; honor food preferences Add Supplement/Snack (indicate name/kcal Nepro TID /protein ) Provides kCal: 1,275 Provides Protein (gm) 57 Goal #1 PO intake of meals plus ONS to meet 100% energy and pro needs Goal #2 Wt maintenance and/or gain Anticipated Discharge Needs: Continue ONS 2-3 times daily for wt maintenance Follow-Up By: 05/21/21 Additional Comments F/U: intakes (meals/ONS), wt
[2021-05-15] MEDS: SODIUM BICARBONATE 650 MG TAB PO SCH ×3 (10:42→21:27)
[2021-05-15] MEDS: CHOLECALCIFEROL (VIT D3) 400 UNIT TAB PO SCH (10:43)
[2021-05-15] MEDS: predniSONE 10 MG TAB PO SCH (10:45)
[2021-05-15] MEDS: BUMETANIDE 1 MG/4 ML INJ IV SCH ×3 (10:45→21:33)
[2021-05-15] MEDS: DARUNAVIR 800 MG TAB PO SCH (10:46)
[2021-05-15] MEDS: SULFAMETHOXAZOLE/TRIMETHOPRIM 800/160MG DS TAB PO SCH ×2 (10:46→21:27)
[2021-05-15] MEDS: ZINC SULFATE 220 MG CAP PO SCH ×2 (10:46→21:28)
[2021-05-15] MEDS: HEPARIN 5,000 UNIT/1 ML VIAL SUB-Q SCH ×2 (10:46→21:28)
[2021-05-15] MEDS: MULTIVITAMINS,THER W-MINERALS TAB PO SCH (10:47)
[2021-05-15] MEDS: DOLUTEGRAVIR 50 MG TAB PO SCH (10:47)
[2021-05-15] MEDS: lamiVUDine 50 MG/5 ML ORAL LIQD PO SCH (10:48)
[2021-05-15] MEDS: ATOVAQUONE 750 MG/5 ML ORAL SUSP PO SCH (10:49)
[2021-05-15] MEDS: ASCORBIC ACID 500 MG TAB PO SCH ×2 (10:51→21:30)
[2021-05-15] MEDS: RITONAVIR 100 MG TAB PO SCH (11:08)
--- NOTE | 2021-05-15 14:57 | Progress Note ---
Assessment and Plan Assessment Sepsis Pneumonia Malnutrition Acute respiratory failure with hypoxia COVID-19 positive HIV (human immunodeficiency virus infection) Progressive CKD likely ESRD Plan: No new renal labs noted for today Patient received hemodialysis yesterday for UF and clearance No acute indication for HD today Kidney disease could be related to HIVAN Renal US showed CKD signs Renally dose medications Strict I&O's daily Obtain daily weights CM onboard for outpatient HD placement Plan of care reviewed by Dr. Corral Subjective Date of service: 05/15/21 Principal diagnosis: ESRD Interval history: Patient is with active COVID positive infection, chart reviewed. Objective - Vital Signs Vital signs: Vital Signs - 12hr 05/15/21 05/15/21 09:36 10:00 O2 Sat by Pulse 94 97 Oximetry - Lab 05/14/21 06:05 05/14/21 06:05 Most recent lab results Calcium 8.4 mg/dL (8.4-10.2) 05/14/21 06:05 Medications & Allergies - Medications Allergies/Adverse Reactions: Allergies No Known Allergies Allergy (Verified 04/20/21 08:43) Home Medications: Home Medications Medication Instructions Recorded Confirmed Last Taken Type Multivit-Min/Folic/Vit K/Lycop 1 tab PO QDAY 04/21/21 05/13/21 3 Days Ago History [Men's Multivitamin Tablet] ~04/18/21 Sodium Bicarbonate 1,300 mg PO TID #90 tablet 05/01/21 05/13/21 Unknown Rx Active Medications: Generic Name Dose Route Start Last Admin Trade Name Freq PRN Reason Stop Dose Admin Acetaminophen 650 mg 05/10/21 11:26 Acetaminophen 325 Mg Tab PO Q4H PRN Pain MILD(1-3)/Fever >100.5/LANG[place] Albuterol 2.5 mg 05/10/21 11:26 05/14/21 09:45 Albuterol 2.5 Mg/3 Ml Nebu IH 2.5 mg Q4HRT PRN Administration Shortness Of Breath Alprazolam 0.25 mg 05/15/21 09:38 Alprazolam 0.25 Mg Tab PO DAILY PRN Anxiety Ascorbic Acid 500 mg 05/10/21 22:00 05/15/21 10:51 Ascorbic Acid 500 Mg Tab PO 500 mg BID SANTOS Administration Bumetanide 2 mg 05/10/21 20:00 05/15/21 10:45 Bumetanide 1 Mg/4 Ml Inj IV 2 mg TID SANTOS Administration Cholecalciferol 1,000 unit 05/11/21 10:00 05/15/21 10:43 Cholecalciferol (Vit D3) 400 Unit Tab PO 1,000 unit QDAY SANTOS Administration Darunavir 800 mg 05/10/21 14:45 05/15/21 10:46 Darunavir 800 Mg Tab PO 800 mg QDAY SANTOS Administration Dolutegravir Sodium 50 mg 05/10/21 15:00 05/15/21 10:47 Dolutegravir 50 Mg Tab PO 50 mg QDAY SANTOS Administration Heparin Sodium (Porcine) 5,000 unit 05/10/21 22:00 05/15/21 10:46 Heparin 5,000 Unit/1 Ml Vial SUB-Q 5,000 unit Q12HR SANTOS Administration Hydromorphone HCl 0.25 mg 05/10/21 11:26 Hydromorphone 1 Mg/1 Ml Inj IV Q4H PRN Pain, Moderate (4-6) Hydromorphone HCl 0.5 mg 05/10/21 11:26 Hydromorphone 1 Mg/1 Ml Inj IV Q23H PRN Pain , Severe (7-10) Sodium Chloride 100 mls @ 999 mls/hr 05/13/21 13:10 Nacl 0.9% IV TRENT PRN Hypotension Lamivudine 100 mg 05/10/21 15:00 05/15/21 10:48 Lamivudine 50 Mg/5 Ml Oral Liqd PO 100 mg DAILY SANTOS Administration Multivitamins/Minerals 1 each 05/11/21 10:00 05/15/21 10:47 Multivitamins,Ther W-Minerals Tab PO 1 each QDAY SANTOS Administration Ondansetron HCl 4 mg 05/10/21 11:26 Ondansetron 4 Mg/2 Ml Inj IV Q8H PRN Nausea And Vomiting Oxycodone/Acetaminophen 1 tab 05/10/21 11:26 05/13/21 22:22 Oxycodone /Acetaminophen 5-325mg Tab PO 1 tab Q16H PRN Administration Pain, Moderate (4-6) Prednisone 30 mg 05/15/21 10:00 05/15/21 10:45 Prednisone 10 Mg Tab PO 30 mg QDAY SANTOS Administration Ritonavir 100 mg 05/10/21 15:00 05/15/21 11:08 Ritonavir 100 Mg Tab PO 100 mg QDAY SANTOS Administration Sodium Bicarbonate 1,300 mg 05/10/21 14:00 05/15/21 10:42 Sodium Bicarbonate 650 Mg Tab PO 1,300 mg TID SANTOS Administration Sodium Chloride 10 ml 05/10/21 22:00 05/15/21 10:56 Sodium Chloride 0.9% 10 Ml Flush Syringe IV 10 ml BID SANTOS Administration Sodium Chloride 10 ml 05/10/21 11:26 Sodium Chloride 0.9% 10 Ml Flush Syringe IV PRN PRN LINE FLUSH Trimethoprim/Sulfamethoxazole 1 each 05/14/21 14:00 05/15/21 10:46 Sulfamethoxazole/Trimethoprim 800/160mg Ds Tab PO 1 each Q12HR SANTOS Administration Protocol Zinc Sulfate 220 mg 05/10/21 22:00 05/15/21 10:46 Zinc Sulfate 220 Mg Cap PO 220 mg BID SANTOS Administration
[2021-05-15] MEDS: HYDROmorphone 1 MG/1 ML INJ IV PRN (23:58)
--- NOTE | 2021-05-16 07:42 | Progress Note ---
Assessment and Plan Assessment and plan: 40-year-old male who was recently hospitalized and discharged earlier this month with a new diagnosis of HIV and suspected AIDS with associated renal dysfunction. Patient was also noted to have a diagnosis of COVID-19 pneumonia during that admission but not hypoxic at that time. Patient was recommended for outpatient follow-up with [facility]. 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 HIV associated nephropathy Accelerated hypertension Acute renal failure. COVID-19. Patient initially tested + 04/24/2021 but not a candidate for remdesivir. Acute hypoxic respiratory failure. Etiology secondary to Covid versus renal failure versus PCP pneumonia. 05/11/2021. ID has been consulted and we will follow up HIV viral load, CD4 count and genotype. Follow-up LDH 1 3 beta D glucan. ID started Mepron to cover P MARTINEZ and avoiding Bactrim due to renal failure. We started steroids given the new hypoxia. ID also initiated ART with lamivudine, darunavir plus ritonavir and dolutegravir given the possibility of HIVAN. Consider pulmonary consultation. Nephrology following. Renal ultrasound shows signs of CKD. Nephrology to discuss hemodialysis initiation. Continue strict I's and O's daily and monitor renal function closely 05/12/2021. Patient is s/p placement of a right internal jugular tunneled cuffed hemodialysis catheter and initiation of hemodialysis on 05/11/2021. Patient is also undergo further hemodialysis today. CM consult to place patient at [facility]. We will follow up HIV viral load, CD4 count and genotype. Follow-up LDH 1 3 beta D glucan. ID started Mepron to cover P MARTINEZ and avoiding Bactrim due to renal failure. ID also initiated ART with lamivudine, darunavir plus ritonavir and dolutegravir given the possibility of HIVAN. Continue steroids given the hypoxia. Respiratory status has significantly improved after hemodialysis. I believe volume overload was the most significantly contributing factor/etiology. Follow-up serial chest x-ray. Patient currently with 2 L nasal cannula satting at 99% 05/13/2021. Continue hemodialysis per nephrology recommendations. Await outpatient arrangements for hemodialysis unit. We will follow up HIV viral load, CD4 count and genotype. Follow-up LDH 1 3 beta D glucan. ID started Mepron to cover P MARTINEZ and avoiding Bactrim due to renal failure. ID also initiated ART with lamivudine, darunavir plus ritonavir and dolutegravir given the possibility of HIVAN. Continue steroids given the hypoxia and change from Solu-Medrol IV to dexamethasone. Procalcitonin level was elevated at 6. We will continue IV antibiotics per ID recommendations 05/14/2021. Continue hemodialysis per nephrology recommendations. Await outpatient arrangements for hemodialysis unit. We will follow up HIV viral load, CD4 count and genotype. Follow-up LDH 1 3 beta D glucan. ID started Mepron to cover P MARTINEZ and avoiding Bactrim due to renal failure. ID also initiated ART with lamivudine, darunavir plus ritonavir and dolutegravir given the possibility of HIVAN. Continue dexamethasone. Patient to follow-up with [facility] department in early May. Case management follow-up with regards to home ART before follow-up with the health department 05/15/2021. Continue hemodialysis per nephrology recommendations. Await outpatient arrangements for hemodialysis unit. Patient wants anxiety medication prior to dialysis. We will start Xanax 0.25 mg as needed. Continue lamivudine, darunavir plus ritonavir and dolutegravir given the possibility of HIVAN. Continue dexamethasone. Patient to follow-up with health department in early May. Case management follow-up with regards to home ART before follow-up with the health department 05/16/2021. Continue hemodialysis per nephrology recommendations. Await outpa tient arrangements for hemodialysis unit. Renal US showed CKD signs. Strict I&O's daily. Obtain daily weights. Continue Xanax prior to hemodialysis for anxiety. Continue lamivudine, darunavir plus ritonavir and dolutegravir given the possibility of HIVAN. Continue dexamethasone. Patient to follow-up with health department in early May. Patient with elevated diastolic BP greater than 100. We will start Procardia 30 mg twice daily. History Interval history: No new issues overnight Hospitalist Physical - Constitutional Vitals: Temp Pulse Resp BP Pulse Ox 97.9 F 97 H 18 141/104 99 05/16/21 05:32 05/16/21 05:32 05/16/21 05:32 05/16/21 05:32 05/16/21 05:32 General appearance: Present: no acute distress, cachectic - EENT Eyes: Present: PERRL, EOM intact ENT: hearing intact, clear oral mucosa, dentition normal - Neck Neck: Present: supple, normal ROM - Respiratory Respiratory effort: normal Respiratory: bilateral: CTA - Cardiovascular Rhythm: regular Heart Sounds: Present: S1 & S2. Absent: gallop, rub - Extremities Extremities: no ischemia, No edema, Full ROM - Abdominal General gastrointestinal: soft, non-tender, non-distended, normal bowel sounds - Integumentary Integumentary: Present: clear, warm, dry - Neurologic Neurologic: CNII-XII intact, moves all extremities HEART Score - HEART Score Troponin: Troponin T < 0.010 ng/mL (0.00-0.029) 05/10/21 09:45 Results - Labs CBC & Chem 7: 05/14/21 06:05 05/16/21 05:29 Labs: Laboratory Last Values WBC 13.3 K/mm3 (4.5-11.0) H 05/14/21 06:05 RBC 2.93 M/mm3 (3.65-5.03) L 05/14/21 06:05 Hgb 8.6 gm/dl (11.8-15.2) L 05/14/21 06:05 Hct 27.4 % (35.5-45.6) L 05/14/21 06:05 MCV 94 fl (84-94) 05/14/21 06:05 MCH 29 pg (28-32) 05/14/21 06:05 MCHC 31 % (32-34) L 05/14/21 06:05 RDW 14.0 % (13.2-15.2) 05/14/21 06:05 Plt Count 305 K/mm3 (140-440) 05/14/21 06:05 Add Manual Diff Complete 05/14/21 06:05 Total Counted 100 05/14/21 06:05 Seg Neutrophils % [place] 05/11/21 09:53 Seg Neuts % (Manual) 93.0 % (40.0-70.0) H 05/14/21 06:05 Band Neutrophils % 0 % 05/14/21 06:05 Lymphocytes % (Manual) 0 % (13.4-35.0) L 05/14/21 06:05 Reactive Lymphs % (Man) 0 % 05/14/21 06:05 Monocytes % (Manual) 6.0 % (0.0-7.3) 05/14/21 06:05 Eosinophils % (Manual) 0 % (0.0-4.3) 05/14/21 06:05 Basophils % (Manual) 0 % (0.0-1.8) 05/14/21 06:05 Metamyelocytes % 1.0 % 05/14/21 06:05 Myelocytes % 0 % 05/14/21 06:05 Promyelocytes % 0 % 05/14/21 06:05 Blast Cells % 0 % 05/14/21 06:05 Nucleated RBC % Not Reportable 05/14/21 06:05 Seg Neutrophils # Man 12.4 K/mm3 (1.8-7.7) H 05/14/21 06:05 Band Neutrophils # 0.0 K/mm3 05/14/21 06:05 Abs Lymphs (Manual) 291 cells/uL (850-3900) L 05/10/21 17:09 Lymphocytes # (Manual) 0.0 K/mm3 (1.2-5.4) L 05/14/21 06:05 Abs React Lymphs (Man) 0.0 K/mm3 05/14/21 06:05 Monocytes # (Manual) 0.8 K/mm3 (0.0-0.8) 05/14/21 06:05 Eosinophils # (Manual) 0.0 K/mm3 (0.0-0.4) 05/14/21 06:05 Basophils # (Manual) 0.0 K/mm3 (0.0-0.1) 05/14/21 06:05 Metamyelocytes # 0.1 K/mm3 05/14/21 06:05 Myelocytes # 0.0 K/mm3 05/14/21 06:05 Promyelocytes # 0.0 K/mm3 05/14/21 06:05 Blast Cells # 0.0 K/mm3 05/14/21 06:05 WBC Morphology Not Reportable 05/14/21 06:05 Hypersegmented Neuts Not Reportable 05/14/21 06:05 Hyposegmented Neuts Not Reportable 05/14/21 06:05 Hypogranular Neuts Not Reportable 05/14/21 06:05 Smudge Cells Not Reportable 05/14/21 06:05 Toxic Granulation Not Reportable 05/14/21 06:05 Toxic Vacuolation Not Reportable 05/14/21 06:05 Dohle Bodies Not Reportable 05/14/21 06:05 Pelger-Huet Anomaly Not Reportable 05/14/21 06:05 Karishma Rods Not Reportable 05/14/21 06:05 Platelet Estimate Consistent w auto 05/14/21 06:05 Clumped Platelets Rare 05/14/21 06:05 Plt Clumps, EDTA Not Reportable 05/14/21 06:05 Large Platelets Not Reportable 05/14/21 06:05 Giant Platelets Not Reportable 05/14/21 06:05 Platelet Satelliting Not Reportable 05/14/21 06:05 Plt Morphology Comment Not Reportable 05/14/21 06:05 RBC Morphology Normal 05/14/21 06:05 Dimorphic RBCs Not Reportable 05/14/21 06:05 Polychromasia Not Reportable 05/14/21 06:05 Hypochromasia Not Reportable 05/14/21 06:05 Poikilocytosis Not Reportable 05/14/21 06:05 Anisocytosis Not Reportable 05/14/21 06:05 Microcytosis Not Reportable 05/14/21 06:05 Macrocytosis Not Reportable 05/14/21 06:05 Spherocytes Not Reportable 05/14/21 06:05 Pappenheimer Bodies Not Reportable 05/14/21 06:05 Sickle Cells Not Reportable 05/14/21 06:05 Target Cells Not Reportable 05/14/21 06:05 Tear Drop Cells Not Reportable 05/14/21 06:05 Ovalocytes Not Reportable 05/14/21 06:05 Helmet Cells Not Reportable 05/14/21 06:05 [place] Bodies Not Reportable 05/14/21 06:05 Max Rings Not Reportable 05/14/21 06:05 [place] Cells Not Reportable 05/14/21 06:05 Bite Cells Not Reportable 05/14/21 06:05 Crenated Cell Not Reportable 05/14/21 06:05 Elliptocytes Not Reportable 05/14/21 06:05 Acanthocytes (Spur) Not Reportable 05/14/21 06:05 Rouleaux Not Reportable 05/14/21 06:05 Hemoglobin C Crystals Not Reportable 05/14/21 06:05 Schistocytes Not Reportable 05/14/21 06:05 Malaria parasites Not Reportable 05/14/21 06:05 Angus Bodies Not Reportable 05/14/21 06:05 Hem Pathologist Commnt No 05/14/21 06:05 D-Dimer 730.16 ng/mlDDU (0-234) H 05/10/21 09:45 Sodium 135 mmol/L (137-145) L 05/16/21 05:29 Potassium 3.6 mmol/L (3.6-5.0) 05/16/21 05:29 Chloride 93.8 mmol/L (98-107) L 05/16/21 05:29 Carbon Dioxide 23 mmol/L (22-30) 05/16/21 05:29 Anion Gap 22 mmol/L 05/16/21 05:29 BUN 90 mg/dL (9-20) H 05/16/21 05:29 Creatinine 6.1 mg/dL (0.8-1.3) H 05/16/21 05:29 Estimated GFR 12 ml/min 05/16/21 05:29 BUN/Creatinine Ratio 15 % 05/16/21 05:29 Glucose 113 mg/dL (75-100) H 05/16/21 05:29 Lactic Acid 2.10 mmol/L (0.7-2.0) H* 05/11/21 09:53 Calcium 9.0 mg/dL (8.4-10.2) 05/16/21 05:29 Ferritin 1426.0 ng/mL (30.0-300.0) H 05/10/21 09:45 Total Bilirubin 0.20 mg/dL (0.1-1.2) 05/10/21 09:45 AST 26 units/L (5-40) 05/10/21 09:45 ALT 13 units/L (7-56) 05/10/21 09:45 Alkaline Phosphatase 79 units/L (35-129) 05/10/21 09:45 Lactate Dehydrogenase 600 units/L (91-180) H 05/10/21 09:45 Lactate Dehydrogenase 623 units/L (91-180) H 05/10/21 09:45 Total Creatine Kinase 31 units/L (55-170) L 05/10/21 09:45 CK-MB (CK-2) < 1.0 ng/mL (0.0-4.0) 05/10/21 09:45 CK-MB (CK-2) Rel Index 3.2 (0-4) 05/10/21 09:45 Troponin T < 0.010 ng/mL (0.00-0.029) 05/10/21 09:45 C-Reactive Protein 8.90 mg/dL (0.00-1.30) H 05/10/21 09:45 C-Reactive Protein 9.00 mg/dL (0.00-1.30) H 05/10/21 09:45 NT-Pro-B Natriuret Pep 4065 pg/mL (0-450) H 05/10/21 09:45 Total Protein 7.6 g/dL (6.3-8.2) 05/10/21 09:45 Albumin 2.4 g/dL (3.9-5) L 05/10/21 09:45 Albumin/Globulin Ratio 0.5 % 05/10/21 09:45 Procalcitonin 6.81 ng/mL (<0.15) 05/10/21 09:45 TSH 2.390 mlU/mL (0.270-4.200) 05/10/21 09:45 Free T4 0.94 ng/dL (0.76-1.46) 05/10/21 09:45 Urine Color Yellow (Yellow) 05/10/21 13:49 Urine Turbidity Clear (Clear) 05/10/21 13:49 Urine pH 8.0 (5.0-7.0) H 05/10/21 13:49 Ur Specific [place] 1.025 (1.003-1.030) 05/10/21 13:49 Urine Protein 100 mg/dl mg/dL (Negative) 05/10/21 13:49 Urine Glucose (UA) Negative mg/dL (Negative) 05/10/21 13:49 Urine Ketones Negative mg/dL (Negative) 05/10/21 13:49 Urine Blood Negative (Negative) 05/10/21 13:49 Urine Nitrite Negative (Negative) 05/10/21 13:49 Ur Reducing Substances Not Reportable 05/10/21 13:49 Urine Bilirubin Negative (Negative) 05/10/21 13:49 Urine Ictotest Not Reportable 05/10/21 13:49 Urine Urobilinogen 0.0 mg/dL (<2.0) 05/10/21 13:49 Ur Leukocyte Esterase Negative (Negative) 05/10/21 13:49 Urine WBC (Auto) 2.0 /HPF (0.0-6.0) 05/10/21 13:49 Urine RBC (Auto) < 1.0 /HPF (0.0-6.0) 05/10/21 13:49 U Epithel Cells (Auto) 1.0 /HPF (0-13.0) 05/10/21 13:49 Lymph Enumerat CD4/CD8 0.00 (0.86-5.00) L 05/10/21 17:09 % CD3 Cells 78 % (57-85) 05/10/21 17:09 Absolute CD3 Count 228 cells/uL (840-3060) L 05/10/21 17:09 % CD4 Cells 0 % (30-61) L 05/10/21 17:09 Absolute CD4 Count 0 cells/uL (490-1740) L 05/10/21 17:09 % CD8 Cells 78 % (12-42) H 05/10/21 17:09 Absolute CD8 Count 239 cells/uL (180-1170) 05/10/21 17:09 % CD19 Cells 1 % (6-29) L 05/10/21 17:09 Absolute CD19 Count 2 cells/uL (110-660) L 05/10/21 17:09 Coronavirus (PCR) Positive (Negative) A 05/11/21 09:00 Hepatitis A IgM Ab Non-reactive (NonReactive) 05/11/21 09:53 Hep Bs Antigen Non-reactive (Negative) 05/11/21 09:53 Hep B Core IgM Ab Non-reactive (NonReactive) 05/11/21 09:53 Hepatitis C Antibody Non-reactive (NonReactive) 05/11/21 09:53 HIV-1 RNA PCR copies/ml 17448 Copies/mL H 05/10/21 17:09 HIV-1 RNA (PCR) log 4.71 Log cps/mL H 05/10/21 17:09 Miscellaneous Test Flexitest 1 H 05/11/21 12:41 Microbiology: Microbiology 05/10/21 11:28 Peripheral/Venous Blood Culture - Final NO GROWTH AFTER 5 DAYS 05/10/21 11:28 Peripheral/Venous Blood Culture - Final NO GROWTH AFTER 5 DAYS Krishnan/IV: Voiding Method Urinal Active Medications - Current Medications Current Medications: Generic Name Dose Route Start Last Admin Trade Name Freq PRN Reason Stop Dose Admin Acetaminophen 650 mg 05/10/21 11:26 Acetaminophen 325 Mg Tab PO Q4H PRN Pain MILD(1-3)/Fever >100.5/[place] Albuterol 2.5 mg 05/10/21 11:26 05/14/21 09:45 Albuterol 2.5 Mg/3 Ml Nebu IH 2.5 mg Q4HRT PRN Administration Shortness Of Breath Alprazolam 0.25 mg 05/15/21 09:38 Alprazolam 0.25 Mg Tab PO DAILY PRN Anxiety Ascorbic Acid 500 mg 05/10/21 22:00 05/15/21 21:30 Ascorbic Acid 500 Mg Tab PO 500 mg BID SANTOS Administration Bumetanide 2 mg 05/10/21 20:00 05/15/21 21:33 Bumetanide 1 Mg/4 Ml Inj IV 2 mg TID SANTOS Administration Cholecalciferol 1,000 unit 05/11/21 10:00 05/15/21 10:43 Cholecalciferol (Vit D3) 400 Unit Tab PO 1,000 unit QDAY SANTOS Administration Darunavir 800 mg 05/10/21 14:45 05/15/21 10:46 Darunavir 800 Mg Tab PO 800 mg QDAY SANTOS Administration Dolutegravir Sodium 50 mg 05/10/21 15:00 05/15/21 10:47 Dolutegravir 50 Mg Tab PO 50 mg QDAY SANTOS Administration Heparin Sodium (Porcine) 5,000 unit 05/10/21 22:00 05/15/21 21:28 Heparin 5,000 Unit/1 Ml Vial SUB-Q 5,000 unit Q12HR SANTOS Administration Hydromorphone HCl 0.25 mg 05/10/21 11:26 05/15/21 23:58 Hydromorphone 1 Mg/1 Ml Inj IV 0.25 mg Q4H PRN Administration Pain, Moderate (4-6) Hydromorphone HCl 0.5 mg 05/10/21 11:26 Hydromorphone 1 Mg/1 Ml Inj IV Q23H PRN Pain , Severe (7-10) Sodium Chloride 100 mls @ 999 mls/hr 05/13/21 13:10 Nacl 0.9% IV TRENT PRN Hypotension Lamivudine 100 mg 05/10/21 15:00 05/15/21 10:48 Lamivudine 50 Mg/5 Ml Oral Liqd PO 100 mg DAILY SANTOS Administration Multivitamins/Minerals 1 each 05/11/21 10:00 05/15/21 10:47 Multivitamins,Ther W-Minerals Tab PO 1 each QDAY SANTOS Administration Ondansetron HCl 4 mg 05/10/21 11:26 Ondansetron 4 Mg/2 Ml Inj IV Q8H PRN Nausea And Vomiting Oxycodone/Acetaminophen 1 tab 05/10/21 11:26 05/13/21 22:22 Oxycodone /Acetaminophen 5-325mg Tab PO 1 tab Q16H PRN Administration Pain, Moderate (4-6) Prednisone 30 mg 05/15/21 10:00 05/15/21 10:45 Prednisone 10 Mg Tab PO 30 mg QDAY SANTOS Administration Ritonavir 100 mg 05/10/21 15:00 05/15/21 11:08 Ritonavir 100 Mg Tab PO 100 mg QDAY SANTOS Administration Sodium Bicarbonate 1,300 mg 05/10/21 14:00 05/15/21 21:27 Sodium Bicarbonate 650 Mg Tab PO 1,300 mg TID SANTOS Administration Sodium Chloride 10 ml 05/10/21 22:00 05/15/21 21:29 Sodium Chloride 0.9% 10 Ml Flush Syringe IV 10 ml BID SANTOS Administration Sodium Chloride 10 ml 05/10/21 11:26 Sodium Chloride 0.9% 10 Ml Flush Syringe IV PRN PRN LINE FLUSH Trimethoprim/Sulfamethoxazole 1 each 05/14/21 14:00 05/15/21 21:27 Sulfamethoxazole/Trimethoprim 800/160mg Ds Tab PO 1 each Q12HR SANTOS Administration Protocol Zinc Sulfate 220 mg 05/10/21 22:00 05/15/21 21:28 Zinc Sulfate 220 Mg Cap PO 220 mg BID SANTOS Administration Nutrition/Malnutrition Assess - Dietary Evaluation Nutrition/Malnutrition Findings: Nutrition Notes Start: 05/11/21 12:44 Freq: Status: Active Protocol: Document 05/14/21 11:10 ERNESTO (Rec: 05/14/21 11:16 [facility] [id number]) Nutrition Notes Initial or Follow up Reassessment Current Diagnosis Respiratory Failure Other Pertinent Diagnosis HIV/AIDS, ARF, COVID-19 (+) Current Diet Renal + Nepro TID Labs/Tests Na 135 BUN 67 Cr 5.2 Pertinent Medications Decadron, MVI with minerals, Bumex Height 6 ft 2 in Weight 55.8 kg [place] Body Weight (kg) 86.36 BMI 15.7 Weight Status Underweight Subjective/Other Information Pt consumed 50% of 2 meals on 05/12; no other PO intakes documented. HD initiated. Spoke with pt via phone (14:55 ). He says his appetite is good, however, his meals are usually cold when he gets them ; he has been ordering peanut butter and jelly sandwiches ( x2) daily and drinking Nepro shakes. Percent of energy/protein needs met: 52% energy 57% pro (excludes ONS) Burn Absent Trauma Absent Current % PO Fair (50-74%) Minimum of two criteria Yes #1 Nutrition Diagnosis Underweight Diagnosis Progress(for reassessment Continues documentation) Is patient on ventilator? No Is Patient Ambulatory and/or Out of Bed Yes REE-([facility]-ambulatory/OOB) [ 1999.075 [id number]] Kcal/Kg value to use for calculation 45 Approximate Energy Requirements Using 2511 kcal/Kg Calculation Used for Recommendations Kcal/kg Additional Notes Pro needs >1.2g/kg: >67g/day Fluid needs 1-1.5L/day Nutrition Intervention Change Diet Order: Continue current diet order; honor food preferences Add Supplement/Snack (indicate name/kcal Nepro TID /protein ) Provides kCal: 1,275 Provides Protein (gm) 57 Goal #1 PO intake of meals plus ONS to meet 100% energy and pro needs Goal #2 Wt maintenance and/or gain Anticipated Discharge Needs: Continue ONS 2-3 times daily for wt maintenance Follow-Up By: 05/21/21 Additional Comments F/U: intakes (meals/ONS), wt
[2021-05-16] MEDS: SULFAMETHOXAZOLE/TRIMETHOPRIM 800/160MG DS TAB PO SCH ×2 (09:55→21:12)
[2021-05-16] MEDS: predniSONE 10 MG TAB PO SCH (09:56)
[2021-05-16] MEDS: ASCORBIC ACID 500 MG TAB PO SCH ×2 (09:56→21:13)
[2021-05-16] MEDS: BUMETANIDE 1 MG/4 ML INJ IV SCH ×3 (09:56→21:11)
[2021-05-16] MEDS: SODIUM BICARBONATE 650 MG TAB PO SCH ×3 (09:57→21:11)
[2021-05-16] MEDS: CHOLECALCIFEROL (VIT D3) 400 UNIT TAB PO SCH (09:57)
[2021-05-16] MEDS: ZINC SULFATE 220 MG CAP PO SCH ×2 (09:57→21:13)
[2021-05-16] MEDS: RITONAVIR 100 MG TAB PO SCH (09:58)
[2021-05-16] MEDS: DOLUTEGRAVIR 50 MG TAB PO SCH (09:58)
[2021-05-16] MEDS: HEPARIN 5,000 UNIT/1 ML VIAL SUB-Q SCH ×2 (09:58→21:19)
[2021-05-16] MEDS: MULTIVITAMINS,THER W-MINERALS TAB PO SCH (09:58)
[2021-05-16] MEDS: DARUNAVIR 800 MG TAB PO SCH (09:58)
[2021-05-16] MEDS: lamiVUDine 50 MG/5 ML ORAL LIQD PO SCH (09:58)
[2021-05-16] MEDS: NIFEdipine XL 30 MG TAB PO SCH ×2 (10:23→21:13)
--- NOTE | 2021-05-16 15:23 | Progress Note ---
Assessment and Plan Assessment Sepsis Pneumonia Malnutrition Acute respiratory failure with hypoxia COVID-19 positive HIV (human immunodeficiency virus infection) Progressive CKD likely ESRD Plan: Hemodialysis tomororw for UF and clearance. Will place on ,, schedule. No acute indication for HD today Kidney disease could be related to HIVAN Renal US showed CKD signs Renally dose medications Strict I&O's daily Obtain daily weights CM onboard for outpatient HD placement Plan of care reviewed by Dr. Corral Subjective Date of service: 05/16/21 Principal diagnosis: ESRD Interval history: Patient is with active COVID positive infection, chart reviewed. Objective - Vital Signs Vital signs: Vital Signs - 12hr 05/16/21 05/16/21 05/16/21 05:32 08:57 10:00 Temperature 97.9 F Pulse Rate 97 H Respiratory 18 18 Rate Blood Pressure 141/104 Blood Pressure [Left] O2 Sat by Pulse 99 98 96 Oximetry 05/16/21 05/16/21 10:27 12:43 Temperature 97.9 F 98.0 F Pulse Rate 111 H 111 H Respiratory 20 16 Rate Blood Pressure 145/101 Blood Pressure 130/85 [Left] O2 Sat by Pulse 98 98 Oximetry - Lab 05/14/21 06:05 05/16/21 05:29 Most recent lab results Calcium 9.0 mg/dL (8.4-10.2) 05/16/21 05:29 Medications & Allergies - Medications Allergies/Adverse Reactions: Allergies No Known Allergies Allergy (Verified 04/20/21 08:43) Home Medications: Home Medications Medication Instructions Recorded Confirmed Last Taken Type Multivit-Min/Folic/Vit K/Lycop 1 tab PO QDAY 04/21/21 05/13/21 3 Days Ago History [Men's Multivitamin Tablet] ~04/18/21 Sodium Bicarbonate 1,300 mg PO TID #90 tablet 05/01/21 05/13/21 Unknown Rx Active Medications: Generic Name Dose Route Start Last Admin Trade Name Freq PRN Reason Stop Dose Admin Acetaminophen 650 mg 05/10/21 11:26 Acetaminophen 325 Mg Tab PO Q4H PRN Pain MILD(1-3)/Fever >100.5/LANGLEY Albuterol 2.5 mg 05/10/21 11:26 05/14/21 09:45 Albuterol 2.5 Mg/3 Ml Nebu IH 2.5 mg Q4HRT PRN Administration Shortness Of Breath Alprazolam 0.25 mg 05/15/21 09:38 Alprazolam 0.25 Mg Tab PO DAILY PRN Anxiety Ascorbic Acid 500 mg 05/10/21 22:00 05/16/21 09:56 Ascorbic Acid 500 Mg Tab PO 500 mg BID SANTOS Administration Bumetanide 2 mg 05/10/21 20:00 05/16/21 14:15 Bumetanide 1 Mg/4 Ml Inj IV 2 mg TID SANTOS Administration Cholecalciferol 1,000 unit 05/11/21 10:00 05/16/21 09:57 Cholecalciferol (Vit D3) 400 Unit Tab PO 1,000 unit QDAY SANTOS Administration Darunavir 800 mg 05/10/21 14:45 05/16/21 09:58 Darunavir 800 Mg Tab PO 800 mg QDAY SANTOS Administration Dolutegravir Sodium 50 mg 05/10/21 15:00 05/16/21 09:58 Dolutegravir 50 Mg Tab PO 50 mg QDAY SANTOS Administration Heparin Sodium (Porcine) 5,000 unit 05/10/21 22:00 05/16/21 09:58 Heparin 5,000 Unit/1 Ml Vial SUB-Q 5,000 unit Q12HR SANTOS Administration Hydromorphone HCl 0.25 mg 05/10/21 11:26 05/15/21 23:58 Hydromorphone 1 Mg/1 Ml Inj IV 0.25 mg Q4H PRN Administration Pain, Moderate (4-6) Hydromorphone HCl 0.5 mg 05/10/21 11:26 Hydromorphone 1 Mg/1 Ml Inj IV Q23H PRN Pain , Severe (7-10) Sodium Chloride 100 mls @ 999 mls/hr 05/13/21 13:10 Nacl 0.9% IV TRENT PRN Hypotension Lamivudine 100 mg 05/10/21 15:00 05/16/21 09:58 Lamivudine 50 Mg/5 Ml Oral Liqd PO 100 mg DAILY SANTOS Administration Multivitamins/Minerals 1 each 05/11/21 10:00 05/16/21 09:58 Multivitamins,Ther W-Minerals Tab PO 1 each QDAY SANTOS Administration Nifedipine 30 mg 05/16/21 10:00 05/16/21 10:23 Nifedipine Xl 30 Mg Tab PO 30 mg Q12HR SANTOS Administration Ondansetron HCl 4 mg 05/10/21 11:26 Ondansetron 4 Mg/2 Ml Inj IV Q8H PRN Nausea And Vomiting Oxycodone/Acetaminophen 1 tab 05/10/21 11:26 05/13/21 22:22 Oxycodone /Acetaminophen 5-325mg Tab PO 1 tab Q16H PRN Administration Pain, Moderate (4-6) Prednisone 30 mg 05/15/21 10:00 05/16/21 09:56 Prednisone 10 Mg Tab PO 30 mg QDAY SANTOS Administration Ritonavir 100 mg 05/10/21 15:00 05/16/21 09:58 Ritonavir 100 Mg Tab PO 100 mg QDAY SANTOS Administration Sodium Bicarbonate 1,300 mg 05/10/21 14:00 05/16/21 14:14 Sodium Bicarbonate 650 Mg Tab PO 1,300 mg TID SANTOS Administration Sodium Chloride 10 ml 05/10/21 22:00 05/16/21 09:55 Sodium Chloride 0.9% 10 Ml Flush Syringe IV 10 ml BID SANTOS Administration Sodium Chloride 10 ml 05/10/21 11:26 Sodium Chloride 0.9% 10 Ml Flush Syringe IV PRN PRN LINE FLUSH Trimethoprim/Sulfamethoxazole 1 each 05/14/21 14:00 05/16/21 09:55 Sulfamethoxazole/Trimethoprim 800/160mg Ds Tab PO 1 each Q12HR SANTOS Administration Protocol Zinc Sulfate 220 mg 05/10/21 22:00 05/16/21 09:57 Zinc Sulfate 220 Mg Cap PO 220 mg BID SANTOS Administration
[2021-05-16] MEDS: HYDROmorphone 1 MG/1 ML INJ IV PRN (20:08)
[2021-05-17] MEDS: HYDROmorphone 1 MG/1 ML INJ IV PRN ×2 (03:11→08:56)
[2021-05-17] MEDS: BUMETANIDE 1 MG/4 ML INJ IV SCH ×3 (08:00→21:42)
[2021-05-17] MEDS: SODIUM BICARBONATE 650 MG TAB PO SCH ×3 (08:00→20:17)
[2021-05-17 08:28] LABS: Hematocrit 27.5 % (35.5-45.6); Hemoglobin 9.6 gm/dl (11.8-15.2); Mean Corpuscular HGB Conc 35 % (32-34); Mean Corpuscular Volume 95 fl (84-94); Platelet Count 369 K/mm3 (140-440); Red Blood Count 2.91 M/mm3 (3.65-5.03)
--- NOTE | 2021-05-17 08:33 | Progress Note ---
Assessment and Plan Assessment and plan: 40-year-old male who was recently hospitalized and discharged earlier this month with a new diagnosis of HIV and suspected AIDS with associated renal dysfunction. Patient was also noted to have a diagnosis of COVID-19 pneumonia during that admission but not hypoxic at that time. Patient was recommended for outpatient follow-up with [facility]. 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 HIV associated nephropathy Accelerated hypertension Acute renal failure. COVID-19. Patient initially tested + 04/24/2021 but not a candidate for remdesivir. Acute hypoxic respiratory failure. Etiology secondary to Covid versus renal failure versus PCP pneumonia. 05/11/2021. ID has been consulted and we will follow up HIV viral load, CD4 count and genotype. Follow-up LDH 1 3 beta D glucan. ID started Mepron to cover P MARTINEZ and avoiding Bactrim due to renal failure. We started steroids given the new hypoxia. ID also initiated ART with lamivudine, darunavir plus ritonavir and dolutegravir given the possibility of HIVAN. Consider pulmonary consultation. Nephrology following. Renal ultrasound shows signs of CKD. Nephrology to discuss hemodialysis initiation. Continue strict I's and O's daily and monitor renal function closely 05/12/2021. Patient is s/p placement of a right internal jugular tunneled cuffed hemodialysis catheter and initiation of hemodialysis on 05/11/2021. Patient is also undergo further hemodialysis today. CM consult to place patient at [place] [facility]. We will follow up HIV viral load, CD4 count and genotype. Follow-up LDH 1 3 beta D glucan. ID started Mepron to cover P MARTINEZ and avoiding Bactrim due to renal failure. ID also initiated ART with lamivudine, darunavir plus ritonavir and dolutegravir given the possibility of HIVAN. Continue steroids given the hypoxia. Respiratory status has significantly improved after hemodialysis. I believe volume overload was the most significantly contributing factor/etiology. Follow-up serial chest x-ray. Patient currently with 2 L nasal cannula satting at 99% 05/13/2021. Continue hemodialysis per nephrology recommendations. Await outpatient arrangements for hemodialysis unit. We will follow up HIV viral load, CD4 count and genotype. Follow-up LDH 1 3 beta D glucan. ID started Mepron to cover P MARTINEZ and avoiding Bactrim due to renal failure. ID also initiated ART with lamivudine, darunavir plus ritonavir and dolutegravir given the possibility of HIVAN. Continue steroids given the hypoxia and change from Solu-Medrol IV to dexamethasone. Procalcitonin level was elevated at 6. We will continue IV antibiotics per ID recommendations 05/14/2021. Continue hemodialysis per nephrology recommendations. Await outpatient arrangements for hemodialysis unit. We will follow up HIV viral load, CD4 count and genotype. Follow-up LDH 1 3 beta D glucan. ID started Mepron to cover P MARTINEZ and avoiding Bactrim due to renal failure. ID also initiated ART with lamivudine, darunavir plus ritonavir and dolutegravir given the possibility of HIVAN. Continue dexamethasone. Patient to follow-up with [facility] in early May. Case management follow-up with regards to home ART before follow-up with the health department 05/15/2021. Continue hemodialysis per nephrology recommendations. Await outpatient arrangements for hemodialysis unit. Patient wants anxiety medication prior to dialysis. We will start Xanax 0.25 mg as needed. Continue lamivudine, darunavir plus ritonavir and dolutegravir given the possibility of HIVAN. Continue dexamethasone. Patient to follow-up with health department in early May. Case management follow-up with regards to home ART before follow-up with the health department 05/16/2021. Continue hemodialysis per nephrology recommendations. Await outpa tient arrangements for hemodialysis unit. Renal US showed CKD signs. Strict I&O's daily. Obtain daily weights. Continue Xanax prior to hemodialysis for anxiety. Continue lamivudine, darunavir plus ritonavir and dolutegravir given the possibility of HIVAN. Continue dexamethasone. Patient to follow-up with health department in early May. Patient with elevated diastolic BP greater than 100. We will start Procardia 30 mg twice daily. 05/17/2021. Patient to be initiated on MWF hemodialysis schedule. Patient requesting Xanax for anxiety prior to hemodialysis session. Await outpatient a rrangements for hemodialysis unit per case management. Renal ultrasound revealed signs of chronic kidney disease. Continue strict I&O's daily. Obtain daily weights. Continue lamivudine, darunavir plus ritonavir and dolutegravir given the possibility of HIVAN. Continue dexamethasone. Patient to follow-up with health department in early May. Patient's BP much better controlled with the addition of Procardia. History Interval history: No new issues overnight Hospitalist Physical - Constitutional Vitals: Temp Pulse Resp BP Pulse Ox 97.8 F 108 H 18 110/70 98 05/17/21 04:54 05/17/21 04:54 05/17/21 04:54 05/17/21 04:54 05/17/21 04:54 General appearance: Present: no acute distress, cachectic - EENT Eyes: Present: PERRL, EOM intact ENT: hearing intact, clear oral mucosa, dentition normal - Neck Neck: Present: supple, normal ROM - Respiratory Respiratory effort: normal Respiratory: bilateral: CTA - Cardiovascular Rhythm: regular Heart Sounds: Present: S1 & S2. Absent: gallop, rub - Extremities Extremities: no ischemia, No edema, Full ROM - Abdominal General gastrointestinal: soft, non-tender, non-distended, normal bowel sounds - Integumentary Integumentary: Present: clear, warm, dry - Neurologic Neurologic: CNII-XII intact, moves all extremities HEART Score - HEART Score Troponin: Troponin T < 0.010 ng/mL (0.00-0.029) 05/10/21 09:45 Results - Labs CBC & Chem 7: 05/17/21 07:56 05/16/21 05:29 Labs: Laboratory Last Values WBC 14.5 K/mm3 (4.5-11.0) H 05/17/21 07:56 RBC 2.91 M/mm3 (3.65-5.03) L 05/17/21 07:56 Hgb 9.6 gm/dl (11.8-15.2) L 05/17/21 07:56 Hct 27.5 % (35.5-45.6) L 05/17/21 07:56 MCV 95 fl (84-94) H 05/17/21 07:56 MCH 33 pg (28-32) H 05/17/21 07:56 MCHC 35 % (32-34) H 05/17/21 07:56 RDW 14.0 % (13.2-15.2) 05/17/21 07:56 Plt Count 369 K/mm3 (140-440) 05/17/21 07:56 Lymph % (Auto) Contract Negotiation Specialist 05/17/21 07:56 [place] % (Auto) Contract Negotiation Specialist 05/17/21 07:56 Eos % (Auto) Contract Negotiation Specialist 05/17/21 07:56 Baso % (Auto) Contract Negotiation Specialist 05/17/21 07:56 Lymph # (Auto) Contract Negotiation Specialist 05/17/21 07:56 [place] # (Auto) Contract Negotiation Specialist 05/17/21 07:56 Eos # (Auto) Contract Negotiation Specialist 05/17/21 07:56 Baso # (Auto) Contract Negotiation Specialist 05/17/21 07:56 Add Manual Diff Complete 05/14/21 06:05 Total Counted 100 05/14/21 06:05 Seg Neutrophils % Contract Negotiation Specialist 05/17/21 07:56 Seg Neuts % (Manual) 93.0 % (40.0-70.0) H 05/14/21 06:05 Band Neutrophils % 0 % 05/14/21 06:05 Lymphocytes % (Manual) 0 % (13.4-35.0) L 05/14/21 06:05 Reactive Lymphs % (Man) 0 % 05/14/21 06:05 Monocytes % (Manual) 6.0 % (0.0-7.3) 05/14/21 06:05 Eosinophils % (Manual) 0 % (0.0-4.3) 05/14/21 06:05 Basophils % (Manual) 0 % (0.0-1.8) 05/14/21 06:05 Metamyelocytes % 1.0 % 05/14/21 06:05 Myelocytes % 0 % 05/14/21 06:05 Promyelocytes % 0 % 05/14/21 06:05 Blast Cells % 0 % 05/14/21 06:05 Nucleated RBC % Not Reportable 05/14/21 06:05 Seg Neutrophils # Contract Negotiation Specialist 05/17/21 07:56 Seg Neutrophils # Man 12.4 K/mm3 (1.8-7.7) H 05/14/21 06:05 Band Neutrophils # 0.0 K/mm3 05/14/21 06:05 Abs Lymphs (Manual) 291 cells/uL (850-3900) L 05/10/21 17:09 Lymphocytes # (Manual) 0.0 K/mm3 (1.2-5.4) L 05/14/21 06:05 Abs React Lymphs (Man) 0.0 K/mm3 05/14/21 06:05 Monocytes # (Manual) 0.8 K/mm3 (0.0-0.8) 05/14/21 06:05 Eosinophils # (Manual) 0.0 K/mm3 (0.0-0.4) 05/14/21 06:05 Basophils # (Manual) 0.0 K/mm3 (0.0-0.1) 05/14/21 06:05 Metamyelocytes # 0.1 K/mm3 05/14/21 06:05 Myelocytes # 0.0 K/mm3 05/14/21 06:05 Promyelocytes # 0.0 K/mm3 05/14/21 06:05 Blast Cells # 0.0 K/mm3 05/14/21 06:05 WBC Morphology Not Reportable 05/14/21 06:05 Hypersegmented Neuts Not Reportable 05/14/21 06:05 Hyposegmented Neuts Not Reportable 05/14/21 06:05 Hypogranular Neuts Not Reportable 05/14/21 06:05 Smudge Cells Not Reportable 05/14/21 06:05 Toxic Granulation Not Reportable 05/14/21 06:05 Toxic Vacuolation Not Reportable 05/14/21 06:05 Dohle Bodies Not Reportable 05/14/21 06:05 Pelger-Huet Anomaly Not Reportable 05/14/21 06:05 Karishma Rods Not Reportable 05/14/21 06:05 Platelet Estimate Consistent w auto 05/14/21 06:05 Clumped Platelets Rare 05/14/21 06:05 Plt Clumps, EDTA Not Reportable 05/14/21 06:05 Large Platelets Not Reportable 05/14/21 06:05 Giant Platelets Not Reportable 05/14/21 06:05 Platelet Satelliting Not Reportable 05/14/21 06:05 Plt Morphology Comment Not Reportable 05/14/21 06:05 RBC Morphology Normal 05/14/21 06:05 Dimorphic RBCs Not Reportable 05/14/21 06:05 Polychromasia Not Reportable 05/14/21 06:05 Hypochromasia Not Reportable 05/14/21 06:05 Poikilocytosis Not Reportable 05/14/21 06:05 Anisocytosis Not Reportable 05/14/21 06:05 Microcytosis Not Reportable 05/14/21 06:05 Macrocytosis Not Reportable 05/14/21 06:05 Spherocytes Not Reportable 05/14/21 06:05 Pappenheimer Bodies Not Reportable 05/14/21 06:05 Sickle Cells Not Reportable 05/14/21 06:05 Target Cells Not Reportable 05/14/21 06:05 Tear Drop Cells Not Reportable 05/14/21 06:05 Ovalocytes Not Reportable 05/14/21 06:05 Helmet Cells Not Reportable 05/14/21 06:05 [place] Bodies Not Reportable 05/14/21 06:05 [place] Rings Not Reportable 05/14/21 06:05 [place] Cells Not Reportable 05/14/21 06:05 Bite Cells Not Reportable 05/14/21 06:05 Crenated Cell Not Reportable 05/14/21 06:05 Elliptocytes Not Reportable 05/14/21 06:05 Acanthocytes (Spur) Not Reportable 05/14/21 06:05 Rouleaux Not Reportable 05/14/21 06:05 Hemoglobin C Crystals Not Reportable 05/14/21 06:05 Schistocytes Not Reportable 05/14/21 06:05 Malaria parasites Not Reportable 05/14/21 06:05 Angus Bodies Not Reportable 05/14/21 06:05 Hem Pathologist Commnt No 05/14/21 06:05 D-Dimer 730.16 ng/mlDDU (0-234) H 05/10/21 09:45 Sodium 135 mmol/L (137-145) L 05/16/21 05:29 Potassium 3.6 mmol/L (3.6-5.0) 05/16/21 05:29 Chloride 93.8 mmol/L (98-107) L 05/16/21 05:29 Carbon Dioxide 23 mmol/L (22-30) 05/16/21 05:29 Anion Gap 22 mmol/L 05/16/21 05:29 BUN 90 mg/dL (9-20) H 05/16/21 05:29 Creatinine 6.1 mg/dL (0.8-1.3) H 05/16/21 05:29 Estimated GFR 12 ml/min 05/16/21 05:29 BUN/Creatinine Ratio 15 % 05/16/21 05:29 Glucose 113 mg/dL (75-100) H 05/16/21 05:29 Lactic Acid 2.10 mmol/L (0.7-2.0) H* 05/11/21 09:53 Calcium 9.0 mg/dL (8.4-10.2) 05/16/21 05:29 Ferritin 1426.0 ng/mL (30.0-300.0) H 05/10/21 09:45 Total Bilirubin 0.20 mg/dL (0.1-1.2) 05/10/21 09:45 AST 26 units/L (5-40) 05/10/21 09:45 ALT 13 units/L (7-56) 05/10/21 09:45 Alkaline Phosphatase 79 units/L (35-129) 05/10/21 09:45 Lactate Dehydrogenase 600 units/L (91-180) H 05/10/21 09:45 Lactate Dehydrogenase 623 units/L (91-180) H 05/10/21 09:45 Total Creatine Kinase 31 units/L (55-170) L 05/10/21 09:45 CK-MB (CK-2) < 1.0 ng/mL (0.0-4.0) 05/10/21 09:45 CK-MB (CK-2) Rel Index 3.2 (0-4) 05/10/21 09:45 Troponin T < 0.010 ng/mL (0.00-0.029) 05/10/21 09:45 C-Reactive Protein 8.90 mg/dL (0.00-1.30) H 05/10/21 09:45 C-Reactive Protein 9.00 mg/dL (0.00-1.30) H 05/10/21 09:45 NT-Pro-B Natriuret Pep 4065 pg/mL (0-450) H 05/10/21 09:45 Total Protein 7.6 g/dL (6.3-8.2) 05/10/21 09:45 Albumin 2.4 g/dL (3.9-5) L 05/10/21 09:45 Albumin/Globulin Ratio 0.5 % 05/10/21 09:45 Procalcitonin 6.81 ng/mL (<0.15) 05/10/21 09:45 TSH 2.390 mlU/mL (0.270-4.200) 05/10/21 09:45 Free T4 0.94 ng/dL (0.76-1.46) 05/10/21 09:45 Urine Color Yellow (Yellow) 05/10/21 13:49 Urine Turbidity Clear (Clear) 05/10/21 13:49 Urine pH 8.0 (5.0-7.0) H 05/10/21 13:49 Ur Specific [place] 1.025 (1.003-1.030) 05/10/21 13:49 Urine Protein 100 mg/dl mg/dL (Negative) 05/10/21 13:49 Urine Glucose (UA) Negative mg/dL (Negative) 05/10/21 13:49 Urine Ketones Negative mg/dL (Negative) 05/10/21 13:49 Urine Blood Negative (Negative) 05/10/21 13:49 Urine Nitrite Negative (Negative) 05/10/21 13:49 Ur Reducing Substances Not Reportable 05/10/21 13:49 Urine Bilirubin Negative (Negative) 05/10/21 13:49 Urine Ictotest Not Reportable 05/10/21 13:49 Urine Urobilinogen 0.0 mg/dL (<2.0) 05/10/21 13:49 Ur Leukocyte Esterase Negative (Negative) 05/10/21 13:49 Urine WBC (Auto) 2.0 /HPF (0.0-6.0) 05/10/21 13:49 Urine RBC (Auto) < 1.0 /HPF (0.0-6.0) 05/10/21 13:49 U Epithel Cells (Auto) 1.0 /HPF (0-13.0) 05/10/21 13:49 Lymph Enumerat CD4/CD8 0.00 (0.86-5.00) L 05/10/21 17:09 % CD3 Cells 78 % (57-85) 05/10/21 17:09 Absolute CD3 Count 228 cells/uL (840-3060) L 05/10/21 17:09 % CD4 Cells 0 % (30-61) L 05/10/21 17:09 Absolute CD4 Count 0 cells/uL (490-1740) L 05/10/21 17:09 % CD8 Cells 78 % (12-42) H 05/10/21 17:09 Absolute CD8 Count 239 cells/uL (180-1170) 05/10/21 17:09 % CD19 Cells 1 % (6-29) L 05/10/21 17:09 Absolute CD19 Count 2 cells/uL (110-660) L 05/10/21 17:09 Coronavirus (PCR) Positive (Negative) A 05/11/21 09:00 Hepatitis A IgM Ab Non-reactive (NonReactive) 05/11/21 09:53 Hep Bs Antigen Non-reactive (Negative) 05/11/21 09:53 Hep B Core IgM Ab Non-reactive (NonReactive) 05/11/21 09:53 Hepatitis C Antibody Non-reactive (NonReactive) 05/11/21 09:53 HIV-1 RNA PCR copies/ml 89620 Copies/mL H 05/10/21 17:09 HIV-1 RNA (PCR) log 4.71 Log cps/mL H 05/10/21 17:09 Miscellaneous Test Flexitest 1 H 05/11/21 12:41 Krishnan/IV: Voiding Method Urinal Active Medications - Current Medications Current Medications: Generic Name Dose Route Start Last Admin Trade Name Freq PRN Reason Stop Dose Admin Acetaminophen 650 mg 05/10/21 11:26 Acetaminophen 325 Mg Tab PO Q4H PRN Pain MILD(1-3)/Fever >100.5/[place] Albuterol 2.5 mg 05/10/21 11:26 05/14/21 09:45 Albuterol 2.5 Mg/3 Ml Nebu IH 2.5 mg Q4HRT PRN Administration Shortness Of Breath Alprazolam 0.25 mg 05/15/21 09:38 Alprazolam 0.25 Mg Tab PO DAILY PRN Anxiety Ascorbic Acid 500 mg 05/10/21 22:00 05/16/21 21:13 Ascorbic Acid 500 Mg Tab PO 500 mg BID SANTOS Administration Bumetanide 2 mg 05/10/21 20:00 05/16/21 21:11 Bumetanide 1 Mg/4 Ml Inj IV 2 mg TID SANTOS Administration Cholecalciferol 1,000 unit 05/11/21 10:00 05/16/21 09:57 Cholecalciferol (Vit D3) 400 Unit Tab PO 1,000 unit QDAY SANTOS Administration Darunavir 800 mg 05/10/21 14:45 05/16/21 09:58 Darunavir 800 Mg Tab PO 800 mg QDAY SANTOS Administration Dolutegravir Sodium 50 mg 05/10/21 15:00 05/16/21 09:58 Dolutegravir 50 Mg Tab PO 50 mg QDAY SANTOS Administration Heparin Sodium (Porcine) 5,000 unit 05/10/21 22:00 05/16/21 21:19 Heparin 5,000 Unit/1 Ml Vial SUB-Q 5,000 unit Q12HR SANTOS Administration Hydromorphone HCl 0.25 mg 05/10/21 11:26 05/17/21 03:11 Hydromorphone 1 Mg/1 Ml Inj IV 0.25 mg Q4H PRN Administration Pain, Moderate (4-6) Hydromorphone HCl 0.5 mg 05/10/21 11:26 Hydromorphone 1 Mg/1 Ml Inj IV Q23H PRN Pain , Severe (7-10) Sodium Chloride 100 mls @ 999 mls/hr 05/13/21 13:10 Nacl 0.9% IV TRENT PRN Hypotension Lamivudine 100 mg 05/10/21 15:00 05/16/21 09:58 Lamivudine 50 Mg/5 Ml Oral Liqd PO 100 mg DAILY SANTOS Administration Multivitamins/Minerals 1 each 05/11/21 10:00 05/16/21 09:58 Multivitamins,Ther W-Minerals Tab PO 1 each QDAY SANTOS Administration Nifedipine 30 mg 05/16/21 10:00 05/16/21 21:13 Nifedipine Xl 30 Mg Tab PO 30 mg Q12HR SANTOS Administration Ondansetron HCl 4 mg 05/10/21 11:26 Ondansetron 4 Mg/2 Ml Inj IV Q8H PRN Nausea And Vomiting Oxycodone/Acetaminophen 1 tab 05/10/21 11:26 05/13/21 22:22 Oxycodone /Acetaminophen 5-325mg Tab PO 1 tab Q16H PRN Administration Pain, Moderate (4-6) Prednisone 30 mg 05/15/21 10:00 05/16/21 09:56 Prednisone 10 Mg Tab PO 30 mg QDAY SANTOS Administration Ritonavir 100 mg 05/10/21 15:00 05/16/21 09:58 Ritonavir 100 Mg Tab PO 100 mg QDAY SANTOS Administration Sodium Bicarbonate 1,300 mg 05/10/21 14:00 05/16/21 21:11 Sodium Bicarbonate 650 Mg Tab PO 1,300 mg TID SANTOS Administration Sodium Chloride 10 ml 05/10/21 22:00 05/16/21 21:12 Sodium Chloride 0.9% 10 Ml Flush Syringe IV 10 ml BID SANTOS Administration Sodium Chloride 10 ml 05/10/21 11:26 Sodium Chloride 0.9% 10 Ml Flush Syringe IV PRN PRN LINE FLUSH Trimethoprim/Sulfamethoxazole 1 each 05/14/21 14:00 05/16/21 21:12 Sulfamethoxazole/Trimethoprim 800/160mg Ds Tab PO 1 each Q12HR SANTOS Administration Protocol Zinc Sulfate 220 mg 05/10/21 22:00 05/16/21 21:13 Zinc Sulfate 220 Mg Cap PO 220 mg BID SANTOS Administration Nutrition/Malnutrition Assess - Dietary Evaluation Nutrition/Malnutrition Findings: Nutrition Notes Start: 05/11/21 12:44 Freq: Status: Active Protocol: Document 05/14/21 11:10 ERNESTO (Rec: 05/14/21 11:16 [facility] [id number]) Nutrition Notes Initial or Follow up Reassessment Current Diagnosis Respiratory Failure Other Pertinent Diagnosis HIV/AIDS, ARF, COVID-19 (+) Current Diet Renal + Nepro TID Labs/Tests Na 135 BUN 67 Cr 5.2 Pertinent Medications Decadron, MVI with minerals, Bumex Height 6 ft 2 in Weight 55.8 kg [place] Body Weight (kg) 86.36 BMI 15.7 Weight Status Underweight Subjective/Other Information Pt consumed 50% of 2 meals on 05/12; no other PO intakes documented. HD initiated. Spoke with pt via phone (14:55 ). He says his appetite is good, however, his meals are usually cold when he gets them ; he has been ordering peanut butter and jelly sandwiches ( x2) daily and drinking Nepro shakes. Percent of energy/protein needs met: 52% energy 57% pro (excludes ONS) Burn Absent Trauma Absent Current % PO Fair (50-74%) Minimum of two criteria Yes #1 Nutrition Diagnosis Underweight Diagnosis Progress(for reassessment Continues documentation) Is patient on ventilator? No Is Patient Ambulatory and/or Out of Bed Yes REE-([place]-St. Jeor-ambulatory/OOB) [ 1998.075 [id number]] Kcal/Kg value to use for calculation 45 Approximate Energy Requirements Using 2511 kcal/Kg Calculation Used for Recommendations Kcal/kg Additional Notes Pro needs >1.2g/kg: >67g/day Fluid needs 1-1.5L/day Nutrition Intervention Change Diet Order: Continue current diet order; honor food preferences Add Supplement/Snack (indicate name/kcal Nepro TID /protein ) Provides kCal: 1,275 Provides Protein (gm) 57 Goal #1 PO intake of meals plus ONS to meet 100% energy and pro needs Goal #2 Wt maintenance and/or gain Anticipated Discharge Needs: Continue ONS 2-3 times daily for wt maintenance Follow-Up By: 05/21/21 Additional Comments F/U: intakes (meals/ONS), wt
[2021-05-17] MEDS: ALPRAZolam 0.25 MG TAB PO PRN (08:52)
[2021-05-17] MEDS: HEPARIN 5,000 UNIT/1 ML VIAL SUB-Q SCH ×2 (10:00→21:52)
[2021-05-17] MEDS: ASCORBIC ACID 500 MG TAB PO SCH ×2 (10:00→21:51)
[2021-05-17] MEDS: NIFEdipine XL 30 MG TAB PO SCH ×2 (10:00→22:26)
[2021-05-17] MEDS: MULTIVITAMINS,THER W-MINERALS TAB PO SCH (10:00)
[2021-05-17] MEDS: ZINC SULFATE 220 MG CAP PO SCH ×2 (10:00→21:52)
[2021-05-17] MEDS: SULFAMETHOXAZOLE/TRIMETHOPRIM 800/160MG DS TAB PO SCH ×2 (10:00→21:52)
[2021-05-17 10:01] LABS: Anisocytosis 1+; Basophils % (Manual) 0 % (0.0-1.8); Eosinophils % (Manual) 0 % (0.0-4.3); Hypersegmented Neutrophils Few; Total Cells Counted 100
[2021-05-17 10:02] LABS: Large Platelets Few; Platelet Estimate Consistent w Auto
[2021-05-17] MEDS: DOLUTEGRAVIR 50 MG TAB PO SCH (10:58)
[2021-05-17] MEDS: DARUNAVIR 800 MG TAB PO SCH (10:58)
[2021-05-17] MEDS: lamiVUDine 50 MG/5 ML ORAL LIQD PO SCH (10:58)
[2021-05-17] MEDS: CHOLECALCIFEROL (VIT D3) 400 UNIT TAB PO SCH (10:59)
[2021-05-17] MEDS: RITONAVIR 100 MG TAB PO SCH (10:59)
[2021-05-17] MEDS: predniSONE 10 MG TAB PO SCH (11:00)
--- NOTE | 2021-05-17 13:11 | Progress Note ---
Assessment and Plan Assessment Sepsis Pneumonia Malnutrition Acute respiratory failure with hypoxia COVID-19 positive HIV (human immunodeficiency virus infection) Progressive CKD likely ESRD Plan: Hemodialysis today for UF and clearance. Kidney disease could be related to HIVAN Renal US showed CKD signs Renally dose medications Strict I&O's daily Obtain daily weights CM onboard for outpatient HD placement Plan of care reviewed by Dr. Corral Subjective Date of service: 05/17/21 Principal diagnosis: ESRD Interval history: Patient is with active COVID positive infection, chart reviewed. Objective - Vital Signs Vital signs: Vital Signs - 12hr 05/17/21 05/17/21 04:54 10:00 Temperature 97.8 F Pulse Rate 108 H Respiratory 18 Rate Blood Pressure 110/70 O2 Sat by Pulse 98 96 Oximetry - Lab 05/17/21 07:56 05/17/21 07:56 Most recent lab results Calcium 9.0 mg/dL (8.4-10.2) 05/17/21 07:56 Medications & Allergies - Medications Allergies/Adverse Reactions: Allergies No Known Allergies Allergy (Verified 04/20/21 08:43) Home Medications: Home Medications Medication Instructions Recorded Confirmed Last Taken Type Multivit-Min/Folic/Vit K/Lycop 1 tab PO QDAY 04/21/21 05/13/21 3 Days Ago History [Men's Multivitamin Tablet] ~04/18/21 Sodium Bicarbonate 1,300 mg PO TID #90 tablet 05/01/21 05/13/21 Unknown Rx Active Medications: Generic Name Dose Route Start Last Admin Trade Name Freq PRN Reason Stop Dose Admin Acetaminophen 650 mg 05/10/21 11:26 Acetaminophen 325 Mg Tab PO Q4H PRN Pain MILD(1-3)/Fever >100.5/LANGLEY Albuterol 2.5 mg 05/10/21 11:26 05/14/21 09:45 Albuterol 2.5 Mg/3 Ml Nebu IH 2.5 mg Q4HRT PRN Administration Shortness Of Breath Alprazolam 0.25 mg 05/15/21 09:38 05/17/21 08:52 Alprazolam 0.25 Mg Tab PO 0.25 mg DAILY PRN Administration Anxiety Ascorbic Acid 500 mg 05/10/21 22:00 05/17/21 10:00 Ascorbic Acid 500 Mg Tab PO 500 mg BID SANTOS Administration Bumetanide 2 mg 05/10/21 20:00 02/21/22 08:00 Bumetanide 1 Mg/4 Ml Inj IV 2 mg TID SANTOS Administration Cholecalciferol 1,000 unit 05/11/21 10:00 05/17/21 10:59 Cholecalciferol (Vit D3) 400 Unit Tab PO 1,000 unit QDAY SANTOS Administration Darunavir 800 mg 05/10/21 14:45 05/17/21 10:58 Darunavir 800 Mg Tab PO 800 mg QDAY SANTOS Administration Dolutegravir Sodium 50 mg 05/10/21 15:00 05/17/21 10:58 Dolutegravir 50 Mg Tab PO 50 mg QDAY SANTOS Administration Heparin Sodium (Porcine) 5,000 unit 05/10/21 22:00 05/17/21 10:00 Heparin 5,000 Unit/1 Ml Vial SUB-Q 5,000 unit Q12HR SANTOS Administration Hydromorphone HCl 0.25 mg 05/10/21 11:26 05/17/21 08:56 Hydromorphone 1 Mg/1 Ml Inj IV 0.25 mg Q4H PRN Administration Pain, Moderate (4-6) Hydromorphone HCl 0.5 mg 05/10/21 11:26 Hydromorphone 1 Mg/1 Ml Inj IV Q23H PRN Pain , Severe (7-10) Sodium Chloride 100 mls @ 999 mls/hr 05/13/21 13:10 Nacl 0.9% IV TRENT PRN Hypotension Lamivudine 100 mg 05/10/21 15:00 05/17/21 10:58 Lamivudine 50 Mg/5 Ml Oral Liqd PO 100 mg DAILY SANTOS Administration Multivitamins/Minerals 1 each 05/11/21 10:00 05/17/21 10:00 Multivitamins,Ther W-Minerals Tab PO 1 each QDAY SANTOS Administration Nifedipine 30 mg 05/16/21 10:00 05/17/21 10:00 Nifedipine Xl 30 Mg Tab PO 30 mg Q12HR SANTOS Administration Ondansetron HCl 4 mg 05/10/21 11:26 Ondansetron 4 Mg/2 Ml Inj IV Q8H PRN Nausea And Vomiting Oxycodone/Acetaminophen 1 tab 05/10/21 11:26 05/13/21 22:22 Oxycodone /Acetaminophen 5-325mg Tab PO 1 tab Q16H PRN Administration Pain, Moderate (4-6) Prednisone 30 mg 05/15/21 10:00 05/17/21 11:00 Prednisone 10 Mg Tab PO 30 mg QDAY SANTOS Administration Ritonavir 100 mg 05/10/21 15:00 05/17/21 10:59 Ritonavir 100 Mg Tab PO 100 mg QDAY SANTOS Administration Sodium Bicarbonate 1,300 mg 05/10/21 14:00 05/17/21 08:00 Sodium Bicarbonate 650 Mg Tab PO 1,300 mg TID SANTOS Administration Sodium Chloride 10 ml 05/10/21 22:00 05/17/21 10:00 Sodium Chloride 0.9% 10 Ml Flush Syringe IV 10 ml BID SANTOS Administration Sodium Chloride 10 ml 05/10/21 11:26 Sodium Chloride 0.9% 10 Ml Flush Syringe IV PRN PRN LINE FLUSH Trimethoprim/Sulfamethoxazole 1 each 05/14/21 14:00 05/17/21 10:00 Sulfamethoxazole/Trimethoprim 800/160mg Ds Tab PO 1 each Q12HR SANTOS Administration Protocol Zinc Sulfate 220 mg 05/10/21 22:00 05/17/21 10:00 Zinc Sulfate 220 Mg Cap PO 220 mg BID SANTOS Administration
--- NOTE | 2021-05-17 16:17 | Progress Note ---
Assessment and Plan Cultures: 05/10/2021 blood culture: no growth 05/11/2021 COVID-19 PCR: Positive 05/11/2021 serum cryptococcal antigen: Negative Viral load equals 51,000 CD4 equals 0 Fungitell positive Previous admission labs reviewed: Negative for syphilis, C. difficile PCR, hepatitis panel 04/24/2021 COVID-19 PCR: Positive A/P: 40-year-old male who was recently hospitalized and discharged earlier this month with a new diagnosis of HIV and suspected AIDS along with renal dysfunction. He was also diagnosed with COVID-19 during that admission. He was recommended outpatient follow-up with [facility]. Now readmitted with generalized weakness, worsening shortness of breath: #HIV/AIDS, ?HIVAN: Establishing care for ongoing HIV care is critical now with CD4 count of 0 #COVID-19: Initially tested positive on 04/24/2021, not a candidate for Remdesivir. #Acute hypoxic resp failure: ?COVID v/s renal failure v/s PCP pneumonia. #PJP pneumonia: Given symptoms and positive Fungitell, likely P MARTINEZ pneumonia. Fungitell can be falsely elevated by hemodialysis, however would treat empiric ally #Acute renal failure: ?HIVAN. Nephrology following. Now on HD. Recs: -PO Bactrim DS 1 tab BID, complete 21 days, then 0.5 tab post dialysis MWF for retirement prophylaxis -taper steroids over 21 days -Given concern for HIVAN, ART was started on 05/10/2021: lamivudine 100 mg daily, darunavir + ritonavir, dolutegravir -Will need social work/pharmacy assistance to give him at least 2 weeks of ART supply if possible, till patient follows up at HIV clinic ([facility] or [place]) Fernando Kuhn MD [facility] O: [phone] F: [phone] Subjective Date of service: 05/17/21 Principal diagnosis: ESRD Interval history: Afebrile, white count elevated at 14.5. Currently on 3 L nasal cannula. Objective - Exam Narrative Exam: Physical Exam Constitutional: Alert, cooperative. No acute distress Head, Ears, Nose: Normocephalic, atraumatic. External ears, nose normal Eyes: Conjunctivae/corneas clear. No icterus. No ptosis. Neck: Supple, no meningeal signs Cardiovascular: S1, S2 + Respiratory: AE fair b/l, occ crackles GI: Soft, non-tender; bowel sounds normal. No peritoneal signs Musculoskeletal: No pedal edema, no cyanosis. Skin: No rash or abscess Hem/Lymphatic: No palpable cervical or supraclavicular nodes. Psych: Mood ok. Affect normal Neurological: Awake, alert, oriented. No gross abnormality - Constitutional Vitals: Vital Signs Temp Pulse Resp BP Pulse Ox 97.8 F 108 H 18 110/70 96 05/17/21 04:54 05/17/21 04:54 05/17/21 04:54 05/17/21 04:54 05/17/21 10:00 Temperature -Last 24 Hours Temperature 97.8 F Temperature 97.5 F Temperature 97.5 F Temperature 98.3 F - Labs CBC & Chem 7: 05/17/21 07:56 05/17/21 07:56 Labs: Abnormal lab results 05/17/21 05/17/21 Range/Units 07:56 07:56 WBC 14.5 H (4.5-11.0) K/mm3 RBC 2.91 L (3.65-5.03) M/mm3 Hgb 9.6 L (11.8-15.2) gm/dl Hct 27.5 L (35.5-45.6) % MCV 95 H (84-94) fl MCH 33 H (28-32) pg MCHC 35 H (32-34) % Seg Neuts % (Manual) 88.0 H (40.0-70.0) % Lymphocytes % (Manual) 1.0 L (13.4-35.0) % Monocytes % (Manual) 11.0 H (0.0-7.3) % Seg Neutrophils # Man 12.8 H (1.8-7.7) K/mm3 Lymphocytes # (Manual) 0.1 L (1.2-5.4) K/mm3 Monocytes # (Manual) 1.6 H (0.0-0.8) K/mm3 Sodium 128 L D (137-145) mmol/L Chloride 88.5 L (98-107) mmol/L Carbon Dioxide 17 L (22-30) mmol/L BUN 105 H (9-20) mg/dL Creatinine 7.0 H (0.8-1.3) mg/dL Glucose 101 H (75-100) mg/dL
[2021-05-17] MEDS: oxyCODONE /ACETAMINOPHEN 5-325MG TAB PO PRN (21:51)
[2021-05-18 07:01] LABS: Calcium 8.5 mg/dL (8.4-10.2)
--- NOTE | 2021-05-18 07:42 | Progress Note ---
Assessment and Plan Assessment and plan: 40-year-old male who was recently hospitalized and discharged earlier this month with a new diagnosis of HIV and suspected AIDS with associated renal dysfunction. Patient was also noted to have a diagnosis of COVID-19 pneumonia during that admission but not hypoxic at that time. Patient was recommended for outpatient follow-up with [facility] department. 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 Noncompliance with ART, initiated given the patient's acute illness HIV associated nephropathy, BILLIE on CKD, HD initiated Accelerated hypertension, resolved Hypotension since HD initiated, poorly tolerating HD Pneumomediastinum and mild subcutaneous emphysema in the neck, newly noted on 05/18 with right IJ tunnel catheter in place, vascular surgery addressing this Leukocytosis on prednisone COVID-19. Patient initially tested + 04/24/2021 but not a candidate for remdesivir. Acute hypoxic respiratory failure. Etiology appears to be multifactorial including renal failure, volume overload and PCP pneumonia , improving, currently on room air. Daily events: 05/11/2021. ID has been consulted and we will follow up HIV viral load, CD4 count and genotype. Follow-up LDH 1 3 beta D glucan. ID started Mepron to cover P MARTINEZ and avoiding Bactrim due to renal failure. We started steroids given the new hypoxia. ID also initiated ART with lamivudine, darunavir plus ritonavir and dolutegravir given the possibility of HIVAN. Consider pulmonary consultation. Nephrology following. Renal ultrasound shows signs of CKD. Nephrology to discuss hemodialysis initiation. Continue strict I's and O's daily and monitor renal function closely 05/12/2021. Patient is s/p placement of a right internal jugular tunneled cuffed hemodialysis catheter and initiation of hemodialysis on 05/11/2021. Patient is also undergo further hemodialysis today. CM consult to place patient at [facility] dialysis unit. We will follow up HIV viral load, CD4 count and genotype. Follow-up LDH 1 3 beta D glucan. ID started Mepron to cover P MARTINEZ and avoiding Bactrim due to renal failure. ID also initiated ART with lamivudine, darunavir plus ritonavir and dolutegravir given the possibility of HIVAN. Continue steroids given the hypoxia. Respiratory status has significantly improved after hemodialysis. I believe volume overload was the most significantly contributing factor/etiology. Follow-up serial chest x-ray. Patient currently with 2 L nasal cannula satting at 99% 05/13/2021. Continue hemodialysis per nephrology recommendations. Await outpatient arrangements for hemodialysis unit. We will follow up HIV viral load, CD4 count and genotype. Follow-up LDH 1 3 beta D glucan. ID started Mepron to cover P MARTINEZ and avoiding Bactrim due to renal failure. ID also initiated ART with lamivudine, darunavir plus ritonavir and dolutegravir given the possibility of HIVAN. Continue steroids given the hypoxia and change from Solu-Medrol IV to dexamethasone. Procalcitonin level was elevated at 6. We will continue IV antibiotics per ID recommendations 05/14/2021. Continue hemodialysis per nephrology recommendations. Await outpatient arrangements for hemodialysis unit. We will follow up HIV viral load, CD4 count and genotype. Follow-up LDH 1 3 beta D glucan. ID started Mepron to cover P MARTINEZ and avoiding Bactrim due to renal failure. ID also initiated ART with lamivudine, darunavir plus ritonavir and dolutegravir given the possibility of HIVAN. Continue dexamethasone. Patient to follow-up with health department in early May. Case management follow-up with regards to home ART before follow-up with the health department 05/15/2021. Continue hemodialysis per nephrology recommendations. Await outpatient arrangements for hemodialysis unit. Patient wants anxiety medication prior to dialysis. We will start Xanax 0.25 mg as needed. Continue lamivudine, darunavir plus ritonavir and dolutegravir given the possibility of HIVAN. Continue dexamethasone. Patient to follow-up with health department in early May. Case management follow-up with regards to home ART before follow-up with the health department 05/16/2021. Continue hemodialysis per nephrology recommendations. Await outpatient arrangements for hemodialysis unit. Renal US showed CKD signs. St rict I&O's daily. Obtain daily weights. Continue Xanax prior to hemodialysis for anxiety. Continue lamivudine, darunavir plus ritonavir and dolutegravir given the possibility of HIVAN. Continue dexamethasone. Patient to follow-up with health department in early May. Patient with elevated diastolic BP greater than 100. We will start Procardia 30 mg twice daily. 05/17/2021. Patient to be initiated on MWF hemodialysis schedule. Patient requesting Xanax for anxiety prior to hemodialysis session. Await outpatient arrangements for hemodialysis unit per case management. Renal ultrasound revealed signs of chronic kidney disease. Continue strict I&O's daily. Obtain daily weights. Continue lamivudine, darunavir plus ritonavir and dolutegravir given the possibility of HIVAN. Continue dexamethasone. Patient to follow-up with health department in early May. Patient's BP much better controlled with the addition of Procardia. 05/18: Hemodialysis was discontinued yesterday after 1 hour if patient request as he was feeling weak with hypotension. BP remains low to 80s. Given NS bolus management this morning. Procardia discontinued. Bumex is on hold. Excellent urine. Still feeling weak. Remains anxious. Asking to be sedated during dialysis. CXR ordered daily Dr. Graves shows mild localized subcutaneous emphysema and right-sided neck pain currently dialysis catheter is placed. A CT chest showed diabetes mellitus with emphysema-like cough. Vascular surgery is addressing this. Sinus tachycardia stable. On room air without acute respite distress at rest. Discussed with the patient, nursing staff and vascular surgery. History Interval history: Hemodialysis was discontinued yesterday after 1 hour if patient request as he was feeling weak with hypotension. BP remains low to 80s. Given NS bolus management this morning. Procardia discontinued. Bumex is on hold. Excellent urine. Still feeling weak. Remains anxious. Asking to be sedated during dialysis. CXR ordered daily Dr. Graves shows mild localized subcutaneous emphysema and right-sided neck pain currently dialysis catheter is placed. A CT chest showed diabetes mellitus with emphysema-like cough. Vascular surgery is addressing this. Sinus tachycardia stable. On room air without acute respite distress at rest. Hospitalist Physical - Constitutional Vitals: Temp Pulse Resp BP Pulse Ox 97.9 F 109 H 16 80/45 97 05/18/21 04:21 05/18/21 04:21 05/18/21 04:21 05/18/21 04:21 05/18/21 04:21 General appearance: Present: no acute distress, cachectic, other (Anxious) - EENT Eyes: Present: PERRL, EOM intact ENT: hearing intact, clear oral mucosa - Neck Neck: Present: supple, other (Mild subcutaneous emphysema noted in the right supraclavicular fossa. Right IJ tunneled dialysis catheter in place.) - Respiratory Respiratory effort: normal Respiratory: bilateral: diminished - Cardiovascular Rhythm: other (Sinus tachycardia) - Extremities Extremities: No edema - Abdominal General gastrointestinal: soft, non-tender, non-distended, normal bowel sounds - Integumentary Integumentary: Absent: rash - Psychiatric Psychiatric: other (Anxious) - Neurologic Neurologic: moves all extremities, other (Alert, sluggish, oriented, answers appropriately) HEART Score - HEART Score Troponin: Troponin T < 0.010 ng/mL (0.00-0.029) 05/10/21 09:45 Results - Labs CBC & Chem 7: 05/17/21 07:56 05/18/21 06:17 Labs: Laboratory Last Values WBC 14.5 K/mm3 (4.5-11.0) H 05/17/21 07:56 RBC 2.91 M/mm3 (3.65-5.03) L 05/17/21 07:56 Hgb 9.6 gm/dl (11.8-15.2) L 05/17/21 07:56 Hct 27.5 % (35.5-45.6) L 05/17/21 07:56 MCV 95 fl (84-94) H 05/17/21 07:56 MCH 33 pg (28-32) H 05/17/21 07:56 MCHC 35 % (32-34) H 05/17/21 07:56 RDW 14.0 % (13.2-15.2) 05/17/21 07:56 Plt Count 369 K/mm3 (140-440) 05/17/21 07:56 Lymph % (Auto) Orthodontist Assistant 05/17/21 07:56 Stephens % (Auto) Orthodontist Assistant 05/17/21 07:56 Eos % (Auto) Orthodontist Assistant 05/17/21 07:56 Baso % (Auto) Orthodontist Assistant 05/17/21 07:56 Lymph # (Auto) Orthodontist Assistant 05/17/21 07:56 Stephens # (Auto) Orthodontist Assistant 05/17/21 07:56 Eos # (Auto) Orthodontist Assistant 05/17/21 07:56 Baso # (Auto) Orthodontist Assistant 05/17/21 07:56 Add Manual Diff Complete 05/17/21 07:56 Total Counted 100 05/17/21 07:56 Seg Neutrophils % Orthodontist Assistant 05/17/21 07:56 Seg Neuts % (Manual) 88.0 % (40.0-70.0) H 05/17/21 07:56 Band Neutrophils % 0 % 05/17/21 07:56 Lymphocytes % (Manual) 1.0 % (13.4-35.0) L 05/17/21 07:56 Reactive Lymphs % (Man) 0 % 05/17/21 07:56 Monocytes % (Manual) 11.0 % (0.0-7.3) H 05/17/21 07:56 Eosinophils % (Manual) 0 % (0.0-4.3) 05/17/21 07:56 Basophils % (Manual) 0 % (0.0-1.8) 05/17/21 07:56 Metamyelocytes % 0 % 05/17/21 07:56 Myelocytes % 0 % 05/17/21 07:56 Promyelocytes % 0 % 05/17/21 07:56 Blast Cells % 0 % 05/17/21 07:56 Nucleated RBC % Not Reportable 05/17/21 07:56 Seg Neutrophils # Orthodontist Assistant 05/17/21 07:56 Seg Neutrophils # Man 12.8 K/mm3 (1.8-7.7) H 05/17/21 07:56 Band Neutrophils # 0.0 K/mm3 05/17/21 07:56 Abs Lymphs (Manual) 291 cells/uL (850-3900) L 05/10/21 17:09 Lymphocytes # (Manual) 0.1 K/mm3 (1.2-5.4) L 05/17/21 07:56 Abs React Lymphs (Man) 0.0 K/mm3 05/17/21 07:56 Monocytes # (Manual) 1.6 K/mm3 (0.0-0.8) H 05/17/21 07:56 Eosinophils # (Manual) 0.0 K/mm3 (0.0-0.4) 05/17/21 07:56 Basophils # (Manual) 0.0 K/mm3 (0.0-0.1) 05/17/21 07:56 Metamyelocytes # 0.0 K/mm3 05/17/21 07:56 Myelocytes # 0.0 K/mm3 05/17/21 07:56 Promyelocytes # 0.0 K/mm3 05/17/21 07:56 Blast Cells # 0.0 K/mm3 05/17/21 07:56 WBC Morphology Not Reportable 05/17/21 07:56 Hypersegmented Neuts Few 05/17/21 07:56 Hyposegmented Neuts Not Reportable 05/17/21 07:56 Hypogranular Neuts Not Reportable 05/17/21 07:56 Smudge Cells Not Reportable 05/17/21 07:56 Toxic Granulation Not Reportable 05/17/21 07:56 Toxic Vacuolation Not Reportable 05/17/21 07:56 Dohle Bodies Not Reportable 05/17/21 07:56 Pelger-Huet Anomaly Not Reportable 05/17/21 07:56 Karishma Rods Not Reportable 05/17/21 07:56 Platelet Estimate Consistent w auto 05/17/21 07:56 Clumped Platelets Not Reportable 05/17/21 07:56 Plt Clumps, EDTA Not Reportable 05/17/21 07:56 Large Platelets Few 05/17/21 07:56 Giant Platelets Not Reportable 05/17/21 07:56 Platelet Satelliting Not Reportable 05/17/21 07:56 Plt Morphology Comment Not Reportable 05/17/21 07:56 RBC Morphology Not Reportable 05/17/21 07:56 Dimorphic RBCs Not Reportable 05/17/21 07:56 Polychromasia Not Reportable 05/17/21 07:56 Hypochromasia Not Reportable 05/17/21 07:56 Poikilocytosis Not Reportable 05/17/21 07:56 Anisocytosis 1+ 05/17/21 07:56 Microcytosis Not Reportable 05/17/21 07:56 Macrocytosis Not Reportable 05/17/21 07:56 Spherocytes Not Reportable 05/17/21 07:56 Pappenheimer Bodies Not Reportable 05/17/21 07:56 Sickle Cells Not Reportable 05/17/21 07:56 Target Cells Not Reportable 05/17/21 07:56 Tear Drop Cells Not Reportable 05/17/21 07:56 Ovalocytes Not Reportable 05/17/21 07:56 Helmet Cells Not Reportable 05/17/21 07:56 [place] Bodies Not Reportable 05/17/21 07:56 [place] Rings Not Reportable 05/17/21 07:56 [place] Cells Not Reportable 05/17/21 07:56 Bite Cells Not Reportable 05/17/21 07:56 Crenated Cell Not Reportable 05/17/21 07:56 Elliptocytes Not Reportable 05/17/21 07:56 Acanthocytes (Spur) Not Reportable 05/17/21 07:56 Rouleaux Not Reportable 05/17/21 07:56 Hemoglobin C Crystals Not Reportable 05/17/21 07:56 Schistocytes Not Reportable 05/17/21 07:56 Malaria parasites Not Reportable 05/17/21 07:56 Angus Bodies Not Reportable 05/17/21 07:56 Hem Pathologist Commnt No 05/17/21 07:56 D-Dimer 730.16 ng/mlDDU (0-234) H 05/10/21 09:45 Sodium 129 mmol/L (137-145) L 05/18/21 06:17 Potassium 4.1 mmol/L (3.6-5.0) 05/18/21 06:17 Chloride 86.5 mmol/L (98-107) L 05/18/21 06:17 Carbon Dioxide 22 mmol/L (22-30) 05/18/21 06:17 Anion Gap 25 mmol/L 05/18/21 06:17 BUN 98 mg/dL (9-20) H 05/18/21 06:17 Creatinine 7.4 mg/dL (0.8-1.3) H 05/18/21 06:17 Estimated GFR 10 ml/min 05/18/21 06:17 BUN/Creatinine Ratio 13 % 05/18/21 06:17 Glucose 95 mg/dL (75-100) 05/18/21 06:17 Lactic Acid 2.10 mmol/L (0.7-2.0) H* 05/11/21 09:53 Calcium 8.5 mg/dL (8.4-10.2) 05/18/21 06:17 Ferritin 1426.0 ng/mL (30.0-300.0) H 05/10/21 09:45 Total Bilirubin 0.20 mg/dL (0.1-1.2) 05/10/21 09:45 AST 26 units/L (5-40) 05/10/21 09:45 ALT 13 units/L (7-56) 05/10/21 09:45 Alkaline Phosphatase 79 units/L (35-129) 05/10/21 09:45 Lactate Dehydrogenase 600 units/L (91-180) H 05/10/21 09:45 Lactate Dehydrogenase 623 units/L (91-180) H 05/10/21 09:45 Total Creatine Kinase 31 units/L (55-170) L 05/10/21 09:45 CK-MB (CK-2) < 1.0 ng/mL (0.0-4.0) 05/10/21 09:45 CK-MB (CK-2) Rel Index 3.2 (0-4) 05/10/21 09:45 Troponin T < 0.010 ng/mL (0.00-0.029) 05/10/21 09:45 C-Reactive Protein 8.90 mg/dL (0.00-1.30) H 05/10/21 09:45 C-Reactive Protein 9.00 mg/dL (0.00-1.30) H 05/10/21 09:45 NT-Pro-B Natriuret Pep 4065 pg/mL (0-450) H 05/10/21 09:45 Total Protein 7.6 g/dL (6.3-8.2) 05/10/21 09:45 Albumin 2.4 g/dL (3.9-5) L 05/10/21 09:45 Albumin/Globulin Ratio 0.5 % 05/10/21 09:45 Procalcitonin 6.81 ng/mL (<0.15) 05/10/21 09:45 TSH 2.390 mlU/mL (0.270-4.200) 05/10/21 09:45 Free T4 0.94 ng/dL (0.76-1.46) 05/10/21 09:45 Urine Color Yellow (Yellow) 05/10/21 13:49 Urine Turbidity Clear (Clear) 05/10/21 13:49 Urine pH 8.0 (5.0-7.0) H 05/10/21 13:49 Ur Specific Cando 1.025 (1.003-1.030) 05/10/21 13:49 Urine Protein 100 mg/dl mg/dL (Negative) 05/10/21 13:49 Urine Glucose (UA) Negative mg/dL (Negative) 05/10/21 13:49 Urine Ketones Negative mg/dL (Negative) 05/10/21 13:49 Urine Blood Negative (Negative) 05/10/21 13:49 Urine Nitrite Negative (Negative) 05/10/21 13:49 Ur Reducing Substances Not Reportable 05/10/21 13:49 Urine Bilirubin Negative (Negative) 05/10/21 13:49 Urine Ictotest Not Reportable 05/10/21 13:49 Urine Urobilinogen 0.0 mg/dL (<2.0) 05/10/21 13:49 Ur Leukocyte Esterase Negative (Negative) 05/10/21 13:49 Urine WBC (Auto) 2.0 /HPF (0.0-6.0) 05/10/21 13:49 Urine RBC (Auto) < 1.0 /HPF (0.0-6.0) 05/10/21 13:49 U Epithel Cells (Auto) 1.0 /HPF (0-13.0) 05/10/21 13:49 Lymph Enumerat CD4/CD8 0.00 (0.86-5.00) L 05/10/21 17:09 % CD3 Cells 78 % (57-85) 05/10/21 17:09 Absolute CD3 Count 228 cells/uL (840-3060) L 05/10/21 17:09 % CD4 Cells 0 % (30-61) L 05/10/21 17:09 Absolute CD4 Count 0 cells/uL (490-1740) L 05/10/21 17:09 % CD8 Cells 78 % (12-42) H 05/10/21 17:09 Absolute CD8 Count 239 cells/uL (180-1170) 05/10/21 17:09 % CD19 Cells 1 % (6-29) L 05/10/21 17:09 Absolute CD19 Count 2 cells/uL (110-660) L 05/10/21 17:09 Coronavirus (PCR) Positive (Negative) A 05/11/21 09:00 Hepatitis A IgM Ab Non-reactive (NonReactive) 05/11/21 09:53 Hep Bs Antigen Non-reactive (Negative) 05/11/21 09:53 Hep B Core IgM Ab Non-reactive (NonReactive) 05/11/21 09:53 Hepatitis C Antibody Non-reactive (NonReactive) 05/11/21 09:53 HIV-1 RNA PCR copies/ml 12169 Copies/mL H 05/10/21 17:09 HIV-1 RNA (PCR) log 4.71 Log cps/mL H 05/10/21 17:09 Miscellaneous Test Flexitest 1 H 05/11/21 12:41 Krishnan/IV: Voiding Method Urinal Active Medications - Current Medications Current Medications: Generic Name Dose Route Start Last Admin Trade Name Freq PRN Reason Stop Dose Admin Acetaminophen 650 mg 05/10/21 11:26 Acetaminophen 325 Mg Tab PO Q4H PRN Pain MILD(1-3)/Fever >100.5/LANGLEY Albuterol 2.5 mg 05/10/21 11:26 05/14/21 09:45 Albuterol 2.5 Mg/3 Ml Nebu IH 2.5 mg Q4HRT PRN Administration Shortness Of Breath Alprazolam 0.25 mg 05/15/21 09:38 05/17/21 08:52 Alprazolam 0.25 Mg Tab PO 0.25 mg DAILY PRN Administration Anxiety Ascorbic Acid 500 mg 05/10/21 22:00 05/17/21 21:51 Ascorbic Acid 500 Mg Tab PO 500 mg BID SANTOS Administration Bumetanide 2 mg 05/10/21 20:00 05/17/21 21:42 Bumetanide 1 Mg/4 Ml Inj IV Not Given TID SANTOS Cholecalciferol 1,000 unit 05/11/21 10:00 05/17/21 10:59 Cholecalciferol (Vit D3) 400 Unit Tab PO 1,000 unit QDAY SANTOS Administration Darunavir 800 mg 05/10/21 14:45 05/17/21 10:58 Darunavir 800 Mg Tab PO 800 mg QDAY SANTOS Administration Dolutegravir Sodium 50 mg 05/10/21 15:00 05/17/21 10:58 Dolutegravir 50 Mg Tab PO 50 mg QDAY SANTOS Administration Heparin Sodium (Porcine) 5,000 unit 05/10/21 22:00 05/17/21 21:52 Heparin 5,000 Unit/1 Ml Vial SUB-Q 5,000 unit Q12HR SANTOS Administration Sodium Chloride 100 mls @ 999 mls/hr 05/13/21 13:10 Nacl 0.9% IV TRENT PRN Hypotension Lamivudine 100 mg 05/10/21 15:00 05/17/21 10:58 Lamivudine 50 Mg/5 Ml Oral Liqd PO 100 mg DAILY SANTOS Administration Multivitamins/Minerals 1 each 05/11/21 10:00 05/17/21 10:00 Multivitamins,Ther W-Minerals Tab PO 1 each QDAY SANTOS Administration Ondansetron HCl 4 mg 05/10/21 11:26 Ondansetron 4 Mg/2 Ml Inj IV Q8H PRN Nausea And Vomiting Prednisone 30 mg 05/15/21 10:00 05/17/21 11:00 Prednisone 10 Mg Tab PO 30 mg QDAY SANTOS Administration Ritonavir 100 mg 05/10/21 15:00 05/17/21 10:59 Ritonavir 100 Mg Tab PO 100 mg QDAY SANTOS Administration Sodium Bicarbonate 1,300 mg 05/10/21 14:00 05/17/21 20:17 Sodium Bicarbonate 650 Mg Tab PO 1,300 mg TID SANTOS Administration Sodium Chloride 10 ml 05/10/21 22:00 05/17/21 21:54 Sodium Chloride 0.9% 10 Ml Flush Syringe IV 10 ml BID SANTOS Administration Sodium Chloride 10 ml 05/10/21 11:26 Sodium Chloride 0.9% 10 Ml Flush Syringe IV PRN PRN LINE FLUSH Trimethoprim/Sulfamethoxazole 1 each 05/14/21 14:00 05/17/21 21:52 Sulfamethoxazole/Trimethoprim 800/160mg Ds Tab PO 1 each Q12HR SANTOS Administration Protocol Zinc Sulfate 220 mg 05/10/21 22:00 05/17/21 21:52 Zinc Sulfate 220 Mg Cap PO 220 mg BID SANTOS Administration Nutrition/Malnutrition Assess - Dietary Evaluation Nutrition/Malnutrition Findings: Nutrition Notes Start: 05/11/21 12:44 Freq: Status: Active Protocol: Document 05/14/21 11:10 ERNESTO (Rec: 05/14/21 11:16 NYRAMA [id number]) Nutrition Notes Initial or Follow up Reassessment Current Diagnosis Respiratory Failure Other Pertinent Diagnosis HIV/AIDS, ARF, COVID-19 (+) Current Diet Renal + Nepro TID Labs/Tests Na 135 BUN 67 Cr 5.2 Pertinent Medications Decadron, MVI with minerals, Bumex Height 6 ft 2 in Weight 55.8 kg [place] Body Weight (kg) 86.36 BMI 15.7 Weight Status Underweight Subjective/Other Information Pt consumed 50% of 2 meals on 05/12; no other PO intakes documented. HD initiated. Spoke with pt via phone (14:55 ). He says his appetite is good, however, his meals are usually cold when he gets them ; he has been ordering peanut butter and jelly sandwiches ( x2) daily and drinking Nepro shakes. Percent of energy/protein needs met: 52% energy 57% pro (excludes ONS) Burn Absent Trauma Absent Current % PO Fair (50-74%) Minimum of two criteria Yes #1 Nutrition Diagnosis Underweight Diagnosis Progress(for reassessment Continues documentation) Is patient on ventilator? No Is Patient Ambulatory and/or Out of Bed Yes REE-([facility]-ambulatory/OOB) [ 1999.075 [id number]] Kcal/Kg value to use for calculation 45 Approximate Energy Requirements Using 2511 kcal/Kg Calculation Used for Recommendations Kcal/kg Additional Notes Pro needs >1.2g/kg: >67g/day Fluid needs 1-1.5L/day Nutrition Intervention Change Diet Order: Continue current diet order; honor food preferences Add Supplement/Snack (indicate name/kcal Nepro TID /protein ) Provides kCal: 1,275 Provides Protein (gm) 57 Goal #1 PO intake of meals plus ONS to meet 100% energy and pro needs Goal #2 Wt maintenance and/or gain Anticipated Discharge Needs: Continue ONS 2-3 times daily for wt maintenance Follow-Up By: 05/21/21 Additional Comments F/U: intakes (meals/ONS), wt
[2021-05-18] MEDS: BUMETANIDE 1 MG/4 ML INJ IV SCH ×4 (08:00→21:17)
[2021-05-18] MEDS: SODIUM BICARBONATE 650 MG TAB PO SCH ×3 (08:00→21:23)
--- NOTE | 2021-05-18 08:39 | Progress Note ---
Assessment and Plan Sepsis Pneumonia Malnutrition Acute respiratory failure with hypoxia COVID-19 positive HIV (human immunodeficiency virus infection) Progressive CKD likely ESRD Plan: poor clearance with HD will order HD again today, if remains with high Cr and BUN post HD, will request IR eval of dialysis access Kidney disease could be related to HIVAN Renal US showed CKD signs Renally dose medications Strict I&O's daily Obtain daily weights CM onboard for outpatient HD placement Subjective Date of service: 05/18/21 Principal diagnosis: ESRD Interval history: tolerated HD yesterdau Objective - Vital Signs Vital signs: Vital Signs - 12hr 05/17/21 05/17/21 05/17/21 21:13 22:00 23:54 Temperature 98.1 F 97.4 F L Pulse Rate 116 H 114 H Respiratory 20 16 Rate Blood Pressure 77/42 84/52 O2 Sat by Pulse 99 97 97 Oximetry 05/18/21 04:21 Temperature 97.9 F Pulse Rate 109 H Respiratory 16 Rate Blood Pressure 80/45 O2 Sat by Pulse 97 Oximetry - Lab 05/17/21 07:56 05/18/21 06:17 Most recent lab results Calcium 8.5 mg/dL (8.4-10.2) 05/18/21 06:17 Medications & Allergies - Medications Allergies/Adverse Reactions: Allergies No Known Allergies Allergy (Verified 04/20/21 08:43) Home Medications: Home Medications Medication Instructions Recorded Confirmed Last Taken Type Multivit-Min/Folic/Vit K/Lycop 1 tab PO QDAY 04/21/21 05/13/21 3 Days Ago History [Men's Multivitamin Tablet] ~04/18/21 Sodium Bicarbonate 1,300 mg PO TID #90 tablet 05/01/21 05/13/21 Unknown Rx Active Medications: Generic Name Dose Route Start Last Admin Trade Name Freq PRN Reason Stop Dose Admin Acetaminophen 650 mg 05/10/21 11:26 Acetaminophen 325 Mg Tab PO Q4H PRN Pain MILD(1-3)/Fever >100.5/LANGLEY Albuterol 2.5 mg 05/10/21 11:26 05/14/21 09:45 Albuterol 2.5 Mg/3 Ml Nebu IH 2.5 mg Q4HRT PRN Administration Shortness Of Breath Alprazolam 0.25 mg 05/15/21 09:38 05/17/21 08:52 Alprazolam 0.25 Mg Tab PO 0.25 mg DAILY PRN Administration Anxiety Ascorbic Acid 500 mg 05/10/21 22:00 05/17/21 21:51 Ascorbic Acid 500 Mg Tab PO 500 mg BID SANTOS Administration Bumetanide 2 mg 05/10/21 20:00 05/17/21 21:42 Bumetanide 1 Mg/4 Ml Inj IV Not Given TID SANTOS Cholecalciferol 1,000 unit 05/11/21 10:00 05/17/21 10:59 Cholecalciferol (Vit D3) 400 Unit Tab PO 1,000 unit QDAY SANTOS Administration Darunavir 800 mg 05/10/21 14:45 05/17/21 10:58 Darunavir 800 Mg Tab PO 800 mg QDAY SANTOS Administration Dolutegravir Sodium 50 mg 05/10/21 15:00 05/17/21 10:58 Dolutegravir 50 Mg Tab PO 50 mg QDAY SANTOS Administration Heparin Sodium (Porcine) 5,000 unit 05/10/21 22:00 05/17/21 21:52 Heparin 5,000 Unit/1 Ml Vial SUB-Q 5,000 unit Q12HR SANTOS Administration Sodium Chloride 100 mls @ 999 mls/hr 05/13/21 13:10 Nacl 0.9% IV TRENT PRN Hypotension Lamivudine 100 mg 05/10/21 15:00 05/17/21 10:58 Lamivudine 50 Mg/5 Ml Oral Liqd PO 100 mg DAILY SANTOS Administration Multivitamins/Minerals 1 each 05/11/21 10:00 05/17/21 10:00 Multivitamins,Ther W-Minerals Tab PO 1 each QDAY SANTOS Administration Ondansetron HCl 4 mg 05/10/21 11:26 Ondansetron 4 Mg/2 Ml Inj IV Q8H PRN Nausea And Vomiting Prednisone 30 mg 05/15/21 10:00 05/17/21 11:00 Prednisone 10 Mg Tab PO 30 mg QDAY SANTOS Administration Ritonavir 100 mg 05/10/21 15:00 05/17/21 10:59 Ritonavir 100 Mg Tab PO 100 mg QDAY SANTOS Administration Sodium Bicarbonate 1,300 mg 05/10/21 14:00 05/17/21 20:17 Sodium Bicarbonate 650 Mg Tab PO 1,300 mg TID SANTOS Administration Sodium Chloride 10 ml 05/10/21 22:00 05/17/21 21:54 Sodium Chloride 0.9% 10 Ml Flush Syringe IV 10 ml BID SANTOS Administration Sodium Chloride 10 ml 05/10/21 11:26 Sodium Chloride 0.9% 10 Ml Flush Syringe IV PRN PRN LINE FLUSH Trimethoprim/Sulfamethoxazole 1 each 05/14/21 14:00 05/17/21 21:52 Sulfamethoxazole/Trimethoprim 800/160mg Ds Tab PO 1 each Q12HR SANTOS Administration Protocol Zinc Sulfate 220 mg 05/10/21 22:00 05/17/21 21:52 Zinc Sulfate 220 Mg Cap PO 220 mg BID SANTOS Administration
[2021-05-18] MEDS: predniSONE 10 MG TAB PO SCH (09:34)
[2021-05-18] MEDS: MULTIVITAMINS,THER W-MINERALS TAB PO SCH (09:35)
[2021-05-18] MEDS: SULFAMETHOXAZOLE/TRIMETHOPRIM 800/160MG DS TAB PO SCH ×2 (09:35→21:23)
[2021-05-18] MEDS: DARUNAVIR 800 MG TAB PO SCH (09:35)
[2021-05-18] MEDS: ASCORBIC ACID 500 MG TAB PO SCH ×2 (09:35→21:23)
[2021-05-18] MEDS: CHOLECALCIFEROL (VIT D3) 400 UNIT TAB PO SCH (09:36)
[2021-05-18] MEDS: DOLUTEGRAVIR 50 MG TAB PO SCH (09:36)
[2021-05-18] MEDS: ZINC SULFATE 220 MG CAP PO SCH ×2 (09:36→21:23)
[2021-05-18] MEDS: lamiVUDine 50 MG/5 ML ORAL LIQD PO SCH (09:37)
[2021-05-18] MEDS: RITONAVIR 100 MG TAB PO SCH (09:37)
[2021-05-18] MEDS: HEPARIN 5,000 UNIT/1 ML VIAL SUB-Q SCH ×2 (09:38→21:24)
[2021-05-18] MEDS ORDERED: SODIUM CHLORIDE 0.9% 500 ML 500 ML IV SCH (10:30)
--- NOTE | 2021-05-18 14:27 | XRay Report ---
CHEST 1 VIEW INDICATION / CLINICAL INFORMATION: position of catheter. COMPARISON: 05/14/2021 FINDINGS: SUPPORT DEVICES: Right-sided permacath noted with tip in the superior right atrium. HEART / MEDIASTINUM: No significant abnormality. LUNGS / PLEURA: No significant interval change and severe, diffuse bilateral airspace disease. No pne umothorax. ADDITIONAL FINDINGS: Interval increase in subcutaneous emphysema of the bilateral neck regions. IMPRESSION: 1. Right-sided permacath noted with tip in the superior right atrium. 2. Interval increase in subcutaneous emphysema of the bilateral neck regions. 3. No change in diffuse bilateral airspace disease. Signer Name: Brady Burger MD Signed: 05/18/2021 2:23 PM Workstation Name: [id number]
--- NOTE | 2021-05-18 14:34 | Event Note ---
Date: 05/18/21 Reviewed chest x-ray. Right PermCath appears to be in appropriate position without kinking, retraction, or other issues. If there continues to be a clinical concern for recirculation tomorrow, then can consider permcath venogram and exchange. However, given the patient's panic attacks related to procedures, I hope this resolves on its own.
--- NOTE | 2021-05-18 21:31 | Cat Scan Report ---
CT CHEST WITHOUT AND WITH CONTRAST INDICATION / CLINICAL INFORMATION: subcutaneous emphysema, pcp pneumonia. TECHNIQUE: Axial CT images were obtained through the chest without and with contrast. All CT scans at this location are performed using CT dose reduction for ALARA by means of automated exposure control . 100 cc of Omnipaque 300 administered. COMPARISON: Chest radiograph dated 05/18/2021 FINDINGS: HEART: Right IJ central line terminates near the cavoatrial junction. No pericardial effusion. CORONARY ARTERY CALCIFICATION: None. THORACIC AORTA: No significant abnormality. MEDIASTINUM / KELSIE: There is diffuse pneumomediastinum. PLEURA: No pleural effusion. No significant pneumothorax identified. LUNGS: Diffuse opacities throughout both lungs compatible with given history of PCP pneumonia. Centra l airways are patent. Scattered subcutaneous emphysema in the neck, supraclavicular regions, and axil la. ADDITIONAL FINDINGS: Thickening of distal esophagus.. UPPER ABDOMEN: No significant abnormality. SKELETAL SYSTEM: No significant abnormality. IMPRESSION: 1. Pneumomediastinum with subcutaneous emphysema. Etiology for the pneumomediastinum is unclear. 2. Diffuse bilateral ground glass opacities compatible with given history of PCP pneumonia. 3. Thickening of distal esophagus can be seen with esophagitis. Recommend clinical correlation. Signer Name: Nguyễn Carroll MD Signed: 05/18/2021 9:26 PM Workstation Name: [id number]
[2021-05-19] MEDS ORDERED: NITROGLYCERIN 0.4 MG TAB SUBL SL ONE (07:41)
[2021-05-19] MEDS ORDERED: MORPHINE 2 MG/1 ML INJ IV ONE (07:42)
[2021-05-19] MEDS: BUMETANIDE 1 MG/4 ML INJ IV SCH ×3 (08:44→23:04)
[2021-05-19] MEDS: SODIUM BICARBONATE 650 MG TAB PO SCH ×3 (08:45→23:18)
[2021-05-19] MEDS: ASCORBIC ACID 500 MG TAB PO SCH ×2 (09:00→23:03)
[2021-05-19] MEDS: lamiVUDine 50 MG/5 ML ORAL LIQD PO SCH (09:00)
[2021-05-19] MEDS: DOLUTEGRAVIR 50 MG TAB PO SCH (09:00)
[2021-05-19] MEDS: RITONAVIR 100 MG TAB PO SCH (09:00)
[2021-05-19] MEDS: CHOLECALCIFEROL (VIT D3) 400 UNIT TAB PO SCH (09:01)
[2021-05-19] MEDS: DARUNAVIR 800 MG TAB PO SCH (09:02)
[2021-05-19] MEDS: SULFAMETHOXAZOLE/TRIMETHOPRIM 800/160MG DS TAB PO SCH ×2 (09:02→23:03)
[2021-05-19] MEDS: HEPARIN 5,000 UNIT/1 ML VIAL SUB-Q SCH ×2 (09:03→23:04)
[2021-05-19] MEDS: predniSONE 10 MG TAB PO SCH (09:03)
[2021-05-19] MEDS: MULTIVITAMINS,THER W-MINERALS TAB PO SCH (09:05)
[2021-05-19] MEDS: ZINC SULFATE 220 MG CAP PO SCH ×2 (09:05→23:03)
[2021-05-19] MEDS: ALPRAZolam 0.25 MG TAB PO PRN (10:36)
--- NOTE | 2021-05-19 12:06 | Progress Note ---
Assessment and Plan Assessment Sepsis Pneumonia Malnutrition Acute respiratory failure with hypoxia COVID-19 positive HIV (human immunodeficiency virus infection) Progressive CKD likely ESRD Plan: No new labs noted for today Hemodialysis today for UF and clearance as scheduled, currently on ,, richyul salvador DAVIS saw patient for concerns about access recirculation, states if we still have concerns for recirculation after HD that is scheduled to be done today, then they can consider permcath venogram and exchange but they hope this resolves on its own due to patient having panic attacks related to procedures. Kidney disease could be related to HIVAN Renal US showed CKD signs Renally dose medications Strict I&O's daily Obtain daily weights CM onboard for outpatient HD placement Plan of care reviewed by Dr. Corral Subjective Date of service: 05/19/21 Principal diagnosis: ESRD Interval history: Patient is with active COVID positive infection, chart reviewed. Objective - Vital Signs Vital signs: Vital Signs - 12hr 05/19/21 05/19/21 05/19/21 05:00 06:34 06:38 Temperature 97.8 F 98.4 F Pulse Rate 118 H 119 H Respiratory 16 Rate Blood Pressure 102/55 Blood Pressure 95/58 [Left] O2 Sat by Pulse 92 96 Oximetry O2 Sat by Pulse Oximetry [ Bilateral Throughout] 05/19/21 05/19/21 05/19/21 06:49 08:37 09:24 Temperature 98.2 F Pulse Rate 118 H 115 H Respiratory 16 Rate Blood Pressure 95/58 Blood Pressure 97/56 [Left] O2 Sat by Pulse 93 91 Oximetry O2 Sat by Pulse Oximetry [ Bilateral Throughout] 05/19/21 05/19/21 05/19/21 10:00 10:55 11:00 Temperature 97.0 F L Pulse Rate 116 H 117 H Respiratory 18 Rate Blood Pressure 116/63 115/63 Blood Pressure [Left] O2 Sat by Pulse 98 Oximetry O2 Sat by Pulse 97 Oximetry [ Bilateral Throughout] 05/19/21 05/19/21 11:15 11:30 Temperature Pulse Rate 119 H 121 H Respiratory Rate Blood Pressure 110/56 112/62 Blood Pressure [Left] O2 Sat by Pulse Oximetry O2 Sat by Pulse Oximetry [ Bilateral Throughout] - Lab 05/17/21 07:56 05/18/21 06:17 Most recent lab results Calcium 8.5 mg/dL (8.4-10.2) 05/18/21 06:17 Medications & Allergies - Medications Allergies/Adverse Reactions: Allergies No Known Allergies Allergy (Verified 04/20/21 08:43) Home Medications: Home Medications Medication Instructions Recorded Confirmed Last Taken Type Multivit-Min/Folic/Vit K/Lycop 1 tab PO QDAY 04/21/21 05/13/21 3 Days Ago Hi story [Men's Multivitamin Tablet] ~04/18/21 Sodium Bicarbonate 1,300 mg PO TID #90 tablet 05/01/21 05/13/21 Unknown Rx Active Medications: Generic Name Dose Route Start Last Admin Trade Name Freq PRN Reason Stop Dose Admin Acetaminophen 650 mg 05/10/21 11:26 Acetaminophen 325 Mg Tab PO Q4H PRN Pain MILD(1-3)/Fever >100.5/LANGLEY Albuterol 2.5 mg 05/10/21 11:26 05/14/21 09:45 Albuterol 2.5 Mg/3 Ml Nebu IH 2.5 mg Q4HRT PRN Administration Shortness Of Breath Alprazolam 0.25 mg 05/15/21 09:38 05/19/21 10:36 Alprazolam 0.25 Mg Tab PO 0.25 mg DAILY PRN Administration Anxiety Ascorbic Acid 500 mg 05/10/21 22:00 05/19/21 09:00 Ascorbic Acid 500 Mg Tab PO 500 mg BID SANTOS Administration Bumetanide 2 mg 05/10/21 20:00 05/19/21 08:44 Bumetanide 1 Mg/4 Ml Inj IV Not Given TID SANTOS Cholecalciferol 1,000 unit 05/11/21 10:00 05/19/21 09:01 Cholecalciferol (Vit D3) 400 Unit Tab PO 1,000 unit QDAY SANTOS Administration Darunavir 800 mg 05/10/21 14:45 05/19/21 09:02 Darunavir 800 Mg Tab PO 800 mg QDAY SANTOS Administration Dolutegravir Sodium 50 mg 05/10/21 15:00 05/19/21 09:00 Dolutegravir 50 Mg Tab PO 50 mg QDAY SANTOS Administration Heparin Sodium (Porcine) 5,000 unit 05/10/21 22:00 05/19/21 09:03 Heparin 5,000 Unit/1 Ml Vial SUB-Q 5,000 unit Q12HR SANTOS Administration Sodium Chloride 100 mls @ 999 mls/hr 05/13/21 13:10 Nacl 0.9% IV TRENT PRN Hypotension Lamivudine 100 mg 05/10/21 15:00 05/19/21 09:00 Lamivudine 50 Mg/5 Ml Oral Liqd PO 100 mg DAILY SANTOS Administration Multivitamins/Minerals 1 each 05/11/21 10:00 05/19/21 09:05 Multivitamins,Ther W-Minerals Tab PO 1 each QDAY SANTOS Administration Ondansetron HCl 4 mg 05/10/21 11:26 Ondansetron 4 Mg/2 Ml Inj IV Q8H PRN Nausea And Vomiting Prednisone 30 mg 05/15/21 10:00 05/19/21 09:03 Prednisone 10 Mg Tab PO 30 mg QDAY SANTOS Administration Ritonavir 100 mg 05/10/21 15:00 05/19/21 09:00 Ritonavir 100 Mg Tab PO 100 mg QDAY SANTOS Administration Sodium Bicarbonate 1,300 mg 05/10/21 14:00 05/19/21 08:45 Sodium Bicarbonate 650 Mg Tab PO 1,300 mg TID SANTOS Administration Sodium Chloride 10 ml 05/10/21 22:00 05/19/21 09:04 Sodium Chloride 0.9% 10 Ml Flush Syringe IV 10 ml BID SANTOS Administration Sodium Chloride 10 ml 05/10/21 11:26 Sodium Chloride 0.9% 10 Ml Flush Syringe IV PRN PRN LINE FLUSH Trimethoprim/Sulfamethoxazole 1 each 05/14/21 14:00 05/19/21 09:02 Sulfamethoxazole/Trimethoprim 800/160mg Ds Tab PO 1 each Q12HR SANTOS Administration Protocol Zinc Sulfate 220 mg 05/10/21 22:00 05/19/21 09:05 Zinc Sulfate 220 Mg Cap PO 220 mg BID SANTOS Administration
--- NOTE | 2021-05-19 14:04 | Event Note ---
Date: 05/19/21 Consulted by [facility] For PJP, and Pneumomediastium of unknown origin. Agree with IR in regards to CT and this was done. There does not appear to be an obvious PTX. 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 Patient may have ruptured a bled from this at some point in the last 96 hours as there wasn't evidence of subcutaneous emphysema seen on CXR from Monday. At this time, nothing to do other than continue treatment for PJP and continue supplemental oxygen with hopes to help resorb air. Does not need serial exams but would check based on clinical exam and in the event of deterioration. Will see as needed. Call if there is a change clinically or need for pulmonary to do something invasive.
--- NOTE | 2021-05-19 18:29 | Progress Note ---
Assessment and Plan Cultures: 05/10/2021 blood culture: no growth 05/11/2021 COVID-19 PCR: Positive 05/11/2021 serum cryptococcal antigen: Negative Viral load equals 51,000 CD4 equals 0 Fungitell positive Previous admission labs reviewed: Negative for syphilis, C. difficile PCR, hepatitis panel 04/24/2021 COVID-19 PCR: Positive A/P: 40-year-old male who was recently hospitalized and discharged earlier this month with a new diagnosis of HIV and suspected AIDS along with renal dysfunction. He was also diagnosed with COVID-19 during that admission. He was recommended outpatient follow-up with [facility]. Now readmitted with generalized weakness, worsening shortness of breath: #HIV/AIDS, ?HIVAN: Establishing care for ongoing HIV care is critical now with CD4 count of 0 #COVID-19: Initially tested positive on 04/24/2021, not a candidate for Remdesivir. #Acute hypoxic resp failure: ?COVID v/s renal failure v/s PCP pneumonia. #PJP pneumonia: Given symptoms and positive Fungitell, likely P MARTINEZ pneumonia. Fungitell can be falsely elevated by hemodialysis, however would treat empiric ally #Acute renal failure: ?HIVAN. Nephrology following. Now on HD. Recs: -PO Bactrim DS 1 tab BID, complete 21 days, then 0.5 tab post dialysis MWF for nursing home prophylaxis -taper steroids over 21 days -Given concern for HIVAN, ART was started on 05/10/2021: lamivudine 100 mg daily, darunavir + ritonavir, dolutegravir -Will need social work/pharmacy assistance to give him at least 2 weeks of ART supply if possible, till patient follows up at HIV clinic ([facility] or [facility]) -Given possible esophagitis seen on CT will start fluconazole 200mg q24h Fernando Kuhn MD [facility] O: [phone] F: [phone] Subjective Date of service: 05/19/21 Principal diagnosis: ESRD Interval history: Afebrile, white count 14.5. Imaging personally viewed: Chest CT: Pneumomediastinum with subcutaneous emphysema, diffuse bilateral g roundglass opacities, thickening of distal esophagus. Objective - Exam Narrative Exam: Physical Exam Constitutional: Alert, cooperative. No acute distress Head, Ears, Nose: Normocephalic, atraumatic. External ears, nose normal Eyes: Conjunctivae/corneas clear. No icterus. No ptosis. Neck: Supple, no meningeal signs Cardiovascular: S1, S2 + Respiratory: AE fair b/l, occ crackles GI: Soft, non-tender; bowel sounds normal. No peritoneal signs Musculoskeletal: No pedal edema, no cyanosis. Skin: No rash or abscess Hem/Lymphatic: No palpable cervical or supraclavicular nodes. Psych: Mood ok. Affect normal Neurological: Awake, alert, oriented. No gross abnormality - Constitutional Vitals: Vital Signs Temp Pulse Resp BP Pulse Ox 98.2 F 111 H 18 115/59 97 05/19/21 14:15 05/19/21 14:15 05/19/21 14:15 05/19/21 14:15 05/19/21 14:15 Temperature -Last 24 Hours Temperature 98.2 F Temperature 97.0 F Temperature 98.2 F Temperature 98.4 F Temperature 97.8 F Temperature 98.0 F - Labs CBC & Chem 7: 05/17/21 07:56 05/18/21 06:17
--- NOTE | 2021-05-19 20:07 | Progress Note ---
Assessment and Plan Assessment and plan: 40-year-old male who was recently hospitalized and discharged earlier this month with a new diagnosis of HIV and suspected AIDS with associated renal dysfunction. Patient was also noted to have a diagnosis of COVID-19 pneumonia during that admission but not hypoxic at that time. Patient was recommended for outpatient follow-up with [facility]. 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 Noncompliance with ART, initiated given the patient's acute illness HIV associated nephropathy, BILLIE on CKD, HD initiated Accelerated hypertension, resolved Hypotension since HD initiated, poorly tolerating HD Pneumomediastinum and mild subcutaneous emphysema in the neck, newly noted on 05/18 with right IJ tunnel catheter in place, etiology appears to be related to PGP pneumonia/possible cyst rupture. Assessed by pulmonary in consultation on 05/19, needs no acute events and expected to be resolved by itself. Followed by Dr. Graves on 05/19. Leukocytosis on prednisone COVID-19. Patient initially tested + 04/24/2021 and 05/11/2021, was not a candidate for remdesivir. Acute hypoxic respiratory failure. Etiology appears to be multifactorial including renal failure, volume overload and PCP pneumonia , stable on 2 L O2 currently Daily events: 05/11/2021. ID has been consulted and we will follow up HIV viral load, CD4 count and genotype. Follow-up LDH 1 3 beta D glucan. ID started Mepron to cover P MARTINEZ and avoiding Bactrim due to renal failure. We started steroids given the new hypoxia. ID also initiated ART with lamivudine, darunavir plus ritonavir and dolutegravir given the possibility of HIVAN. Consider pulmonary consultation. Nephrology following. Renal ultrasound shows signs of CKD. Nephrology to discuss hemodialysis initiation. Continue strict I's and O's daily and monitor renal function closely 05/12/2021. Patient is s/p placement of a right internal jugular tunneled cuffed hemodialysis catheter and initiation of hemodialysis on 05/11/2021. Patient is also undergo further hemodialysis today. CM consult to place patient at [place] dialysis unit. We will follow up HIV viral load, CD4 count and genotype. Follow-up LDH 1 3 beta D glucan. ID started Mepron to cover P MARTINEZ and avoiding Bactrim due to renal failure. ID also initiated ART with lamivudine, darunavir plus ritonavir and dolutegravir given the possibility of HIVAN. Continue steroids given the hypoxia. Respiratory status has significantly improved after hemodialysis. I believe volume overload was the most significantly contributing factor/etiology. Follow-up serial chest x-ray. Patient currently with 2 L nasal cannula satting at 99% 05/13/2021. Continue hemodialysis per nephrology recommendations. Await outpatient arrangements for hemodialysis unit. We will follow up HIV viral load, CD4 count and genotype. Follow-up LDH 1 3 beta D glucan. ID started Mepr on to cover P MARTINEZ and avoiding Bactrim due to renal failure. ID also initiated ART with lamivudine, darunavir plus ritonavir and dolutegravir given the possibility of HIVAN. Continue steroids given the hypoxia and change from Solu- Medrol IV to dexamethasone. Procalcitonin level was elevated at 6. We will continue IV antibiotics per ID recommendations 05/14/2021. Continue hemodialysis per nephrology recommendations. Await outpatient arrangements for hemodialysis unit. We will follow up HIV viral load, CD4 count and genotype. Follow-up LDH 1 3 beta D glucan. ID started Mepron to cover P MARTINEZ and avoiding Bactrim due to renal failure. ID also initiated ART with lamivudine, darunavir plus ritonavir and dolutegravir given the possibility of HIVAN. Continue dexamethasone. Patient to follow-up with health department in early May. Case management follow-up with regards to home ART before follow-up with the health department 05/15/2021. Continue hemodialysis per nephrology recommendations. Await outpatient arrangements for hemodialysis unit. Patient wants anxiety medication prior to dialysis. We will start Xanax 0.25 mg as needed. Continue lamivudine, darunavir plus ritonavir and dolutegravir given the possibility of HIVAN. Continue dexamethasone. Patient to follow-up with health department in early May. Case management follow-up with regards to home ART before follow-up with the health department 05/16/2021. Continue hemodialysis per nephrology recommendations. Await outpatient arrangements for hemodialysis unit. Renal US showed CKD signs. Strict I&O's daily. Obtain daily weights. Continue Xanax prior to hemodialysis for anxiety. Continue lamivudine, darunavir plus ritonavir and dolutegravir given the possibility of HIVAN. Continue dexamethasone. Patient to follow-up with health department in early May. Patient with elevated diastolic BP gre ater than 100. We will start Procardia 30 mg twice daily. 05/17/2021. Patient to be initiated on MWF hemodialysis schedule. Patient requesting Xanax for anxiety prior to hemodialysis session. Await outpatient arrangements for hemodialysis unit per case management. Renal ultrasound revealed signs of chronic kidney disease. Continue strict I&O's daily. Obtain daily weights. Continue lamivudine, darunavir plus ritonavir and dolutegravir given the possibility of HIVAN. Continue dexamethasone. Patient to follow-up with health department in early May. Patient's BP much better controlled with the addition of Procardia. 05/18: Hemodialysis was discontinued yesterday after 1 hour if patient request as he was feeling weak with hypotension. BP remains low to 80s. Given NS bolus management this morning. Procardia discontinued. Bumex is on hold. Excellent urine. Still feeling weak. Remains anxious. Asking to be sedated during dialysis. CXR ordered daily Dr. Graves shows mild localized subcutaneous emphysema and right-sided neck pain currently dialysis catheter is placed. A CT chest showed diabetes mellitus with emphysema-like cough. Vascular surgery is addressing this. Sinus tachycardia stable. On room air without acute respite distress at rest. Discussed with the patient, nursing staff and vascular surgery. 05/19:Patient is feeling much better after undergoing hemodialysis for 3 hours today.Breathing much better. Mild subcutis emphysema in the right supraclavicu lar fossa seems stable. This is assisted by pulmonary in consultation and reevaluation by today. No acute intervention required, expected to resolve by itself. Looks more comfortable and less anxious. Remains on 3 L of O2. History Interval history: Patient is feeling much better after undergoing hemodialysis for 3 hours today.Breathing much better. Mild subcutis emphysema in the right supraclavicular fossa seems stable. This is assisted by pulmonary consultation and reevaluation by today. Looks more comfortable and less anxious. Remains on 3 L of O2. Hospitalist Physical - Constitutional Vitals: Temp Pulse Resp BP Pulse Ox 98.1 F 122 H 20 98/58 97 05/19/21 18:28 05/19/21 18:28 05/19/21 18:28 05/19/21 18:28 05/19/21 14:15 General appearance: Present: no acute distress, cachectic, other (Anxious) - EENT Eyes: Present: PERRL ENT: clear oral mucosa - Neck Neck: Present: supple, other (Mild small subcutaneous emphysema in the right supraclavicular fossa.) - Respiratory Respiratory effort: normal Respiratory: bilateral: diminished, rales - Cardiovascular Rhythm: regular - Extremities Extremities: No edema - Abdominal General gastrointestinal: soft, non-tender, non-distended - Integumentary Integumentary: Absent: rash - Psychiatric Psychiatric: other (calm) - Neurologic Neurologic: no focal deficits, moves all extremities HEART Score - HEART Score Troponin: Troponin T 0.011 ng/mL (0.00-0.029) 05/19/21 06:50 Results - Labs CBC & Chem 7: 05/17/21 07:56 05/18/21 06:17 Labs: Laboratory Last Values WBC 14.5 K/mm3 (4.5-11.0) H 05/17/21 07:56 RBC 2.91 M/mm3 (3.65-5.03) L 05/17/21 07:56 Hgb 9.6 gm/dl (11.8-15.2) L 05/17/21 07:56 Hct 27.5 % (35.5-45.6) L 05/17/21 07:56 MCV 95 fl (84-94) H 05/17/21 07:56 MCH 33 pg (28-32) H 05/17/21 07:56 MCHC 35 % (32-34) H 05/17/21 07:56 RDW 14.0 % (13.2-15.2) 05/17/21 07:56 Plt Count 369 K/mm3 (140-440) 05/17/21 07:56 Lymph % (Auto) Ends Breakage Clerk 05/17/21 07:56 [place] % (Auto) Ends Breakage Clerk 05/17/21 07:56 Eos % (Auto) Ends Breakage Clerk 05/17/21 07:56 Baso % (Auto) Ends Breakage Clerk 05/17/21 07:56 Lymph # (Auto) Ends Breakage Clerk 05/17/21 07:56 [place] # (Auto) Ends Breakage Clerk 05/17/21 07:56 Eos # (Auto) Ends Breakage Clerk 05/17/21 07:56 Baso # (Auto) Ends Breakage Clerk 05/17/21 07:56 Add Manual Diff Complete 05/17/21 07:56 Total Counted 100 05/17/21 07:56 Seg Neutrophils % Ends Breakage Clerk 05/17/21 07:56 Seg Neuts % (Manual) 88.0 % (40.0-70.0) H 05/17/21 07:56 Band Neutrophils % 0 % 05/17/21 07:56 Lymphocytes % (Manual) 1.0 % (13.4-35.0) L 05/17/21 07:56 Reactive Lymphs % (Man) 0 % 05/17/21 07:56 Monocytes % (Manual) 11.0 % (0.0-7.3) H 05/17/21 07:56 Eosinophils % (Manual) 0 % (0.0-4.3) 05/17/21 07:56 Basophils % (Manual) 0 % (0.0-1.8) 05/17/21 07:56 Metamyelocytes % 0 % 05/17/21 07:56 Myelocytes % 0 % 05/17/21 07:56 Promyelocytes % 0 % 05/17/21 07:56 Blast Cells % 0 % 05/17/21 07:56 Nucleated RBC % Not Reportable 05/17/21 07:56 Seg Neutrophils # Ends Breakage Clerk 05/17/21 07:56 Seg Neutrophils # Man 12.8 K/mm3 (1.8-7.7) H 05/17/21 07:56 Band Neutrophils # 0.0 K/mm3 05/17/21 07:56 Abs Lymphs (Manual) 291 cells/uL (850-3900) L 05/10/21 17:09 Lymphocytes # (Manual) 0.1 K/mm3 (1.2-5.4) L 05/17/21 07:56 Abs React Lymphs (Man) 0.0 K/mm3 05/17/21 07:56 Monocytes # (Manual) 1.6 K/mm3 (0.0-0.8) H 05/17/21 07:56 Eosinophils # (Manual) 0.0 K/mm3 (0.0-0.4) 05/17/21 07:56 Basophils # (Manual) 0.0 K/mm3 (0.0-0.1) 05/17/21 07:56 Metamyelocytes # 0.0 K/mm3 05/17/21 07:56 Myelocytes # 0.0 K/mm3 05/17/21 07:56 Promyelocytes # 0.0 K/mm3 05/17/21 07:56 Blast Cells # 0.0 K/mm3 05/17/21 07:56 WBC Morphology Not Reportable 05/17/21 07:56 Hypersegmented Neuts Few 05/17/21 07:56 Hyposegmented Neuts Not Reportable 05/17/21 07:56 Hypogranular Neuts Not Reportable 05/17/21 07:56 Smudge Cells Not Reportable 05/17/21 07:56 Toxic Granulation Not Reportable 05/17/21 07:56 Toxic Vacuolation Not Reportable 05/17/21 07:56 Dohle Bodies Not Reportable 05/17/21 07:56 Pelger-Huet Anomaly Not Reportable 05/17/21 07:56 Karishma Rods Not Reportable 05/17/21 07:56 Platelet Estimate Consistent w auto 05/17/21 07:56 Clumped Platelets Not Reportable 05/17/21 07:56 Plt Clumps, EDTA Not Reportable 05/17/21 07:56 Large Platelets Few 05/17/21 07:56 Giant Platelets Not Reportable 05/17/21 07:56 Platelet Satelliting Not Reportable 05/17/21 07:56 Plt Morphology Comment Not Reportable 05/17/21 07:56 RBC Morphology Not Reportable 05/17/21 07:56 Dimorphic RBCs Not Reportable 05/17/21 07:56 Polychromasia Not Reportable 05/17/21 07:56 Hypochromasia Not Reportable 05/17/21 07:56 Poikilocytosis Not Reportable 05/17/21 07:56 Anisocytosis 1+ 05/17/21 07:56 Microcytosis Not Reportable 05/17/21 07:56 Macrocytosis Not Reportable 05/17/21 07:56 Spherocytes Not Reportable 05/17/21 07:56 Pappenheimer Bodies Not Reportable 05/17/21 07:56 Sickle Cells Not Reportable 05/17/21 07:56 Target Cells Not Reportable 05/17/21 07:56 Tear Drop Cells Not Reportable 05/17/21 07:56 Ovalocytes Not Reportable 05/17/21 07:56 Helmet Cells Not Reportable 05/17/21 07:56 Bragg-Bradshaw Bodies Not Reportable 05/17/21 07:56 [place] Rings Not Reportable 05/17/21 07:56 Marsing Cells Not Reportable 05/17/21 07:56 Bite Cells Not Reportable 05/17/21 07:56 Crenated Cell Not Reportable 05/17/21 07:56 Elliptocytes Not Reportable 05/17/21 07:56 Acanthocytes (Spur) Not Reportable 05/17/21 07:56 Rouleaux Not Reportable 05/17/21 07:56 Hemoglobin C Crystals Not Reportable 05/17/21 07:56 Schistocytes Not Reportable 05/17/21 07:56 Malaria parasites Not Reportable 05/17/21 07:56 Agnus Bodies Not Reportable 05/17/21 07:56 Hem Pathologist Commnt No 05/17/21 07:56 D-Dimer 730.16 ng/mlDDU (0-234) H 05/10/21 09:45 Sodium 129 mmol/L (137-145) L 05/18/21 06:17 Potassium 4.1 mmol/L (3.6-5.0) 05/18/21 06:17 Chloride 86.5 mmol/L (98-107) L 05/18/21 06:17 Carbon Dioxide 22 mmol/L (22-30) 05/18/21 06:17 Anion Gap 25 mmol/L 05/18/21 06:17 BUN 98 mg/dL (9-20) H 05/18/21 06:17 Creatinine 7.4 mg/dL (0.8-1.3) H 05/18/21 06:17 Estimated GFR 10 ml/min 05/18/21 06:17 BUN/Creatinine Ratio 13 % 05/18/21 06:17 Glucose 95 mg/dL (75-100) 05/18/21 06:17 Lactic Acid 2.10 mmol/L (0.7-2.0) H* 05/11/21 09:53 Calcium 8.5 mg/dL (8.4-10.2) 05/18/21 06:17 Ferritin 1426.0 ng/mL (30.0-300.0) H 05/10/21 09:45 Total Bilirubin 0.20 mg/dL (0.1-1.2) 05/10/21 09:45 AST 26 units/L (5-40) 05/10/21 09:45 ALT 13 units/L (7-56) 05/10/21 09:45 Alkaline Phosphatase 79 units/L (35-129) 05/10/21 09:45 Lactate Dehydrogenase 600 units/L (91-180) H 05/10/21 09:45 Lactate Dehydrogenase 623 units/L (91-180) H 05/10/21 09:45 Total Creatine Kinase 31 units/L (55-170) L 05/10/21 09:45 CK-MB (CK-2) < 1.0 ng/mL (0.0-4.0) 05/10/21 09:45 CK-MB (CK-2) Rel Index 3.2 (0-4) 05/10/21 09:45 Troponin T 0.011 ng/mL (0.00-0.029) 05/19/21 06:50 C-Reactive Protein 8.90 mg/dL (0.00-1.30) H 05/10/21 09:45 C-Reactive Protein 9.00 mg/dL (0.00-1.30) H 05/10/21 09:45 NT-Pro-B Natriuret Pep 4065 pg/mL (0-450) H 05/10/21 09:45 Total Protein 7.6 g/dL (6.3-8.2) 05/10/21 09:45 Albumin 2.4 g/dL (3.9-5) L 05/10/21 09:45 Albumin/Globulin Ratio 0.5 % 05/10/21 09:45 Procalcitonin 6.81 ng/mL (<0.15) 05/10/21 09:45 TSH 2.390 mlU/mL (0.270-4.200) 05/10/21 09:45 Free T4 0.94 ng/dL (0.76-1.46) 05/10/21 09:45 Urine Color Yellow (Yellow) 05/10/21 13:49 Urine Turbidity Clear (Clear) 05/10/21 13:49 Urine pH 8.0 (5.0-7.0) H 05/10/21 13:49 Ur Specific [place] 1.025 (1.003-1.030) 05/10/21 13:49 Urine Protein 100 mg/dl mg/dL (Negative) 05/10/21 13:49 Urine Glucose (UA) Negative mg/dL (Negative) 05/10/21 13:49 Urine Ketones Negative mg/dL (Negative) 05/10/21 13:49 Urine Blood Negative (Negative) 05/10/21 13:49 Urine Nitrite Negative (Negative) 05/10/21 13:49 Ur Reducing Substances Not Reportable 05/10/21 13:49 Urine Bilirubin Negative (Negative) 05/10/21 13:49 Urine Ictotest Not Reportable 05/10/21 13:49 Urine Urobilinogen 0.0 mg/dL (<2.0) 05/10/21 13:49 Ur Leukocyte Esterase Negative (Negative) 05/10/21 13:49 Urine WBC (Auto) 2.0 /HPF (0.0-6.0) 05/10/21 13:49 Urine RBC (Auto) < 1.0 /HPF (0.0-6.0) 05/10/21 13:49 U Epithel Cells (Auto) 1.0 /HPF (0-13.0) 05/10/21 13:49 Lymph Enumerat CD4/CD8 0.00 (0.86-5.00) L 05/10/21 17:09 % CD3 Cells 78 % (57-85) 05/10/21 17:09 Absolute CD3 Count 228 cells/uL (840-3060) L 05/10/21 17:09 % CD4 Cells 0 % (30-61) L 05/10/21 17:09 Absolute CD4 Count 0 cells/uL (490-1740) L 05/10/21 17:09 % CD8 Cells 78 % (12-42) H 05/10/21 17:09 Absolute CD8 Count 239 cells/uL (180-1170) 05/10/21 17:09 % CD19 Cells 1 % (6-29) L 05/10/21 17:09 Absolute CD19 Count 2 cells/uL (110-660) L 05/10/21 17:09 Coronavirus (PCR) Positive (Negative) A 05/11/21 09:00 Hepatitis A IgM Ab Non-reactive (NonReactive) 05/11/21 09:53 Hep Bs Antigen Non-reactive (Negative) 05/11/21 09:53 Hep B Core IgM Ab Non-reactive (NonReactive) 05/11/21 09:53 Hepatitis C Antibody Non-reactive (NonReactive) 05/11/21 09:53 HIV-1 RNA PCR copies/ml 69533 Copies/mL H 05/10/21 17:09 HIV-1 RNA (PCR) log 4.71 Log cps/mL H 05/10/21 17:09 Miscellaneous Test Flexitest 1 H 05/11/21 12:41 Krishnan/IV: Voiding Method Bedpan Active Medications - Current Medications Current Medications: Generic Name Dose Route Start Last Admin Trade Name Freq PRN Reason Stop Dose Admin Acetaminophen 650 mg 05/10/21 11:26 Acetaminophen 325 Mg Tab PO Q4H PRN Pain MILD(1-3)/Fever >100.5/LANG[place] Albuterol 2.5 mg 05/10/21 11:26 05/14/21 09:45 Albuterol 2.5 Mg/3 Ml Nebu IH 2.5 mg Q4HRT PRN Administration Shortness Of Breath Alprazolam 0.25 mg 05/15/21 09:38 05/19/21 10:36 Alprazolam 0.25 Mg Tab PO 0.25 mg DAILY PRN Administration Anxiety Ascorbic Acid 500 mg 05/10/21 22:00 05/19/21 09:00 Ascorbic Acid 500 Mg Tab PO 500 mg BID SANTOS Administration Bumetanide 2 mg 05/10/21 20:00 05/19/21 13:19 Bumetanide 1 Mg/4 Ml Inj IV Not Given [facility]ID [facility] Cholecalciferol 1,000 unit 05/11/21 10:00 05/19/21 09:01 Cholecalciferol (Vit D3) 400 Unit Tab PO 1,000 unit QDAY SANTOS Administration Darunavir 800 mg 05/10/21 14:45 05/19/21 09:02 Darunavir 800 Mg Tab PO 800 mg QDAY SANTOS Administration Dolutegravir Sodium 50 mg 05/10/21 15:00 05/19/21 09:00 Dolutegravir 50 Mg Tab PO 50 mg QDAY SANTOS Administration Fluconazole 200 mg 05/19/21 19:00 Fluconazole 200 Mg Tab PO QDAY [facility] Protocol Heparin Sodium (Porcine) 5,000 unit 05/10/21 22:00 05/19/21 09:03 Heparin 5,000 Unit/1 Ml Vial SUB-Q 5,000 unit Q12HR SANTOS Administration Sodium Chloride 100 mls @ 999 mls/hr 05/13/21 13:10 Nacl 0.9% IV TRENT PRN Hypotension Lamivudine 100 mg 05/10/21 15:00 05/19/21 09:00 Lamivudine 50 Mg/5 Ml Oral Liqd PO 100 mg DAILY SANTOS Administration Multivitamins/Minerals 1 each 05/11/21 10:00 05/19/21 09:05 Multivitamins,Ther W-Minerals Tab PO 1 each QDAY SANTOS Administration Ondansetron HCl 4 mg 05/10/21 11:26 Ondansetron 4 Mg/2 Ml Inj IV Q8H PRN Nausea And Vomiting Prednisone 30 mg 05/15/21 10:00 05/19/21 09:03 Prednisone 10 Mg Tab PO 30 mg QDAY SANTOS Administration Ritonavir 100 mg 05/10/21 15:00 05/19/21 09:00 Ritonavir 100 Mg Tab PO 100 mg QDAY SANTOS Administration Sodium Bicarbonate 1,300 mg 05/10/21 14:00 05/19/21 13:20 Sodium Bicarbonate 650 Mg Tab PO Not Given TID SANTOS Sodium Chloride 10 ml 05/10/21 22:00 05/19/21 09:04 Sodium Chloride 0.9% 10 Ml Flush Syringe IV 10 ml BID SANTOS Administration Sodium Chloride 10 ml 05/10/21 11:26 Sodium Chloride 0.9% 10 Ml Flush Syringe IV PRN PRN LINE FLUSH Trimethoprim/Sulfamethoxazole 1 each 05/14/21 14:00 05/19/21 09:02 Sulfamethoxazole/Trimethoprim 800/160mg Ds Tab PO 1 each Q12HR SANTOS Administration Protocol Zinc Sulfate 220 mg 05/10/21 22:00 05/19/21 09:05 Zinc Sulfate 220 Mg Cap PO 220 mg BID SANTOS Administration Nutrition/Malnutrition Assess - Dietary Evaluation Nutrition/Malnutrition Findings: Nutrition Notes Start: 05/11/21 12 :44 Freq: Status: Active Protocol: Document 05/14/21 11:10 ERNESTO (Rec: 05/14/21 11:16 ERNESTO [id number]) Nutrition Notes Initial or Follow up Reassessment Current Diagnosis Respiratory Failure Other Pertinent Diagnosis HIV/AIDS, ARF, COVID-19 (+) Current Diet Renal + Nepro TID Labs/Tests Na 135 BUN 67 Cr 5.2 Pertinent Medications Decadron, MVI with minerals, Bumex Height 6 ft 2 in Weight 55.8 kg [place] Body Weight (kg) 86.36 BMI 15.7 Weight Status Underweight Subjective/Other Information Pt consumed 50% of 2 meals on 05/12; no other PO intakes documented. HD initiated. Spoke with pt via phone (14:55 ). He says his appetite is good, however, his meals are usually cold when he gets them ; he has been ordering peanut butter and jelly sandwiches ( x2) daily and drinking Nepro shakes. Percent of energy/protein needs met: 52% energy 57% pro (excludes ONS) Burn Absent Trauma Absent Current % PO Fair (50-74%) Minimum of two criteria Yes #1 Nutrition Diagnosis Underweight Diagnosis Progress(for reassessment Continues documentation) Is patient on ventilator? No Is Patient Ambulatory and/or Out of Bed Yes REE-([facility]-ambulatory/OOB) [ 1999.075 [id number]] Kcal/Kg value to use for calculation 45 Approximate Energy Requirements Using 2511 kcal/Kg Calculation Used for Recommendations Kcal/kg Additional Notes Pro needs >1.2g/kg: >67g/day Fluid needs 1-1.5L/day Nutrition Intervention Change Diet Order: Continue current diet order; honor food preferences Add Supplement/Snack (indicate name/kcal Nepro TID /protein ) Provides kCal: 1,275 Provides Protein (gm) 57 Goal #1 PO intake of meals plus ONS to meet 100% energy and pro needs Goal #2 Wt maintenance and/or gain Anticipated Discharge Needs: Continue ONS 2-3 times daily for wt maintenance Follow-Up By: 05/21/21 Additional Comments F/U: intakes (meals/ONS), wt
[2021-05-19] MEDS: ACETAMINOPHEN 325 MG TAB PO PRN (23:18)
[2021-05-19] MEDS: FLUCONAZOLE 200 MG TAB PO SCH (23:31)
--- NOTE | 2021-05-19 23:40 | Event Note ---
Date: 05/19/21 Given the subcutaneous emphysema, the patient cannot undergo a permcath exchange because the lack of tissue integrity will probably result in extensive ecchymosis. If there continues to be concern for recirculation, can consider evaluation by SVC venography through a femoral line with temporary placement of a femoral catheter. However, I do not think that will solve the underlying issue, as I suspect this is more likely related to the underlying very ill nature of the patient. Please contact vascular tomorrow if there continues to be a concern about recirculation.
[2021-05-20 07:12] LABS: Calcium 8.6 mg/dL (8.4-10.2)
[2021-05-20] MEDS: ALBUTEROL 2.5 MG/3 ML NEBU IH PRN (07:52)
[2021-05-20] MEDS: BUMETANIDE 1 MG/4 ML INJ IV SCH ×2 (08:46→22:34)
[2021-05-20] MEDS: SODIUM BICARBONATE 650 MG TAB PO SCH ×3 (08:47→22:34)
[2021-05-20] MEDS: ACETAMINOPHEN 325 MG TAB PO PRN (09:00)
[2021-05-20] MEDS ORDERED: METOPROLOL TARTRATE 5 MG/5 ML INJ IV ONE (09:30)
[2021-05-20] MEDS: CHOLECALCIFEROL (VIT D3) 400 UNIT TAB PO SCH (10:00)
[2021-05-20 10:16] LABS: Hematocrit 26.4 % (35.5-45.6); Hemoglobin 8.6 gm/dl (11.8-15.2); Mean Corpuscular HGB Conc 33 % (32-34); Mean Corpuscular Volume 95 fl (84-94); Platelet Count 377 K/mm3 (140-440); Red Blood Count 2.78 M/mm3 (3.65-5.03); Red Cell Distribution Width 14.9 % (13.2-15.2)
[2021-05-20 10:31] LABS: Albumin 2.6 g/dL (3.9-5); Calcium 8.4 mg/dL (8.4-10.2)
[2021-05-20] MEDS: DARUNAVIR 800 MG TAB PO SCH (10:40)
[2021-05-20] MEDS: HEPARIN 5,000 UNIT/1 ML VIAL SUB-Q SCH ×2 (10:40→22:34)
[2021-05-20] MEDS: ZINC SULFATE 220 MG CAP PO SCH ×2 (10:41→22:34)
[2021-05-20] MEDS: SULFAMETHOXAZOLE/TRIMETHOPRIM 800/160MG DS TAB PO SCH (10:41)
[2021-05-20] MEDS: predniSONE 10 MG TAB PO SCH (10:41)
[2021-05-20] MEDS: MULTIVITAMINS,THER W-MINERALS TAB PO SCH (10:41)
[2021-05-20] MEDS: DOLUTEGRAVIR 50 MG TAB PO SCH (10:42)
--- NOTE | 2021-05-20 10:43 | Electrocardiograph Report ---
[facility] Test Date: 2021-05-20 Test Time: 08:58:18 Pat Name: YOKASTA HOLDER Department: Room: A364 1 Gender: M [employer]: BRAULIO : 1980 Requested By: JUAN MANUEL BRIAN Order Number: [id number] Reading MD: Reece Mason Measurements Intervals [place] Rate: 138 P: 82 IA: 111 QRS: 19 QRSD: 85 T: 31 QT: 317 QTc: 480 Interpretive Statements Sinus tachycardia Probable left atrial enlargement Compared to ECG 05/11/2021 10:07:07 rate is faster,otherwise no significant change noted. Electronically Signed On 05-20-2021 10:43:19 EST by Reece Mason
[2021-05-20] MEDS: RITONAVIR 100 MG TAB PO SCH (10:47)
[2021-05-20] MEDS: ASCORBIC ACID 500 MG TAB PO SCH ×2 (10:47→22:34)
--- NOTE | 2021-05-20 10:47 | Event Note ---
Date: 05/20/21 CT scan of the chest reviewed. The tip of the catheter is in the proximal right atrium. If there is concern for recirculation, would consider initially reversing ports. At this point in time, would not exchange the catheter secondary to extensive subcutaneous emphysema. If there is need for catheter replacement, a femoral approach would be necessary with anesthesia given the patient's episodic panic attack with hyperventilation with moderate sedation.
[2021-05-20] MEDS: lamiVUDine 50 MG/5 ML ORAL LIQD PO SCH (10:48)
[2021-05-20 10:53] LABS: Hematocrit 26.4 % (35.5-45.6); Hemoglobin 8.6 gm/dl (11.8-15.2); Mean Corpuscular HGB Conc 33 % (32-34); Mean Corpuscular Volume 95 fl (84-94); Platelet Count 377 K/mm3 (140-440); Red Blood Count 2.78 M/mm3 (3.65-5.03); Red Cell Distribution Width 14.9 % (13.2-15.2)
[2021-05-20 11:31] LABS: Anisocytosis 1+; Basophils % (Manual) 0 % (0.0-1.8); Eosinophils % (Manual) 0 % (0.0-4.3); Total Cells Counted 100
[2021-05-20 11:32] LABS: Dohle Bodies Rare; Hypersegmented Neutrophils Rare; Platelet Estimate Consistent w Auto; Toxic Granulation 1+
--- NOTE | 2021-05-20 12:06 | Progress Note ---
Assessment and Plan Sepsis Pneumonia Malnutrition Acute respiratory failure with hypoxia COVID-19 positive HIV (human immunodeficiency virus infection) Progressive CKD likely ESRD Plan: no indication for HD today currently on M,W,F schedule appropriate response to HD yesterday, no indication for permcath intervention for now Kidney disease could be related to HIVAN Renal US showed CKD signs Renally dose medications Strict I&O's daily Obtain daily weights CM onboard for outpatient HD placement Subjective Date of service: 05/20/21 Principal diagnosis: ESRD Interval history: tolerated HD yesterday Objective - Vital Signs Vital signs: Vital Signs - 12hr 05/20/21 05/20/21 05/20/21 05:36 07:52 07:59 Temperature 98.9 F Pulse Rate 131 H Pulse Rate [ 137 H Bilateral Throughout] Respiratory 18 Rate Respiratory 18 Rate [Bilateral Throughout] Blood Pressure 110/77 Blood Pressure [Left] O2 Sat by Pulse 95 93 Oximetry 05/20/21 05/20/21 09:17 10:44 Temperature Pulse Rate 140 H 140 H Pulse Rate [ Bilateral Throughout] Respiratory Rate Respiratory Rate [Bilateral Throughout] Blood Pressure 110/68 Blood Pressure 110/68 [Left] O2 Sat by Pulse Oximetry - Lab 05/20/21 09:45 05/20/21 09:45 Most recent lab results Calcium 8.4 mg/dL (8.4-10.2) 05/20/21 09:45 Magnesium 2.00 mg/dL (1.7-2.3) 05/20/21 09:45 Medications & Allergies - Medications Allergies/Adverse Reactions: Allergies No Known Allergies Allergy (Verified 04/20/21 08:43) Home Medications: Home Medications Medication Instructions Recorded Confirmed Last Taken Type Multivit-Min/Folic/Vit K/Lycop 1 tab PO QDAY 04/21/21 05/13/21 3 Days Ago History [Men's Multivitamin Tablet] ~04/18/21 Sodium Bicarbonate 1,300 mg PO TID #90 tablet 05/01/21 05/13/21 Unknown Rx Active Medications: Generic Name Dose Route Start Last Admin Trade Name Freq PRN Reason Stop Dose Admin Acetaminophen 650 mg 05/10/21 11:26 05/20/21 09:00 Acetaminophen 325 Mg Tab PO 650 mg Q4H PRN Administration Pain MILD(1-3)/Fever >100.5/LANGLEY Albuterol 2.5 mg 05/10/21 11:26 05/20/21 07:52 Albuterol 2.5 Mg/3 Ml Nebu IH 2.5 mg Q4HRT PRN Administration Shortness Of Breath Alprazolam 0.25 mg 05/15/21 09:38 05/19/21 10:36 Alprazolam 0.25 Mg Tab PO 0.25 mg DAILY PRN Administration Anxiety Ascorbic Acid 500 mg 05/10/21 22:00 05/20/21 10:47 Ascorbic Acid 500 Mg Tab PO 500 mg BID SANTOS Administration Bumetanide 1 mg 05/20/21 22:00 Bumetanide 1 Mg/4 Ml Inj IV BID SANTOS Cholecalciferol 1,000 unit 05/11/21 10:00 05/20/21 10:00 Cholecalciferol (Vit D3) 400 Unit Tab PO 1,000 unit QDAY SANTOS Administration Darunavir 800 mg 05/10/21 14:45 05/20/21 10:40 Darunavir 800 Mg Tab PO 800 mg QDAY SANTOS Administration Dolutegravir Sodium 50 mg 05/10/21 15:00 05/20/21 10:42 Dolutegravir 50 Mg Tab PO 50 mg QDAY SANTOS Administration Fluconazole 200 mg 05/19/21 19:00 05/19/21 23:31 Fluconazole 200 Mg Tab PO 200 mg QDAY SANTOS Administration Protocol Heparin Sodium (Porcine) 5,000 unit 05/10/21 22:00 05/20/21 10:40 Heparin 5,000 Unit/1 Ml Vial SUB-Q 5,000 unit Q12HR SANTOS Administration Sodium Chloride 100 mls @ 999 mls/hr 05/13/21 13:10 Nacl 0.9% IV TRENT PRN Hypotension Lamivudine 100 mg 05/10/21 15:00 05/20/21 10:48 Lamivudine 50 Mg/5 Ml Oral Liqd PO 100 mg DAILY SANTOS Administration Multivitamins/Minerals 1 each 05/11/21 10:00 05/20/21 10:41 Multivitamins,Ther W-Minerals Tab PO 1 each QDAY SANTOS Administration Ondansetron HCl 4 mg 05/10/21 11:26 Ondansetron 4 Mg/2 Ml Inj IV Q8H PRN Nausea And Vomiting Prednisone 30 mg 05/15/21 10:00 05/20/21 10:41 Prednisone 10 Mg Tab PO 30 mg QDAY SANTOS Administration Ritonavir 100 mg 05/10/21 15:00 05/20/21 10:47 Ritonavir 100 Mg Tab PO 100 mg QDAY SANTOS Administration Sodium Bicarbonate 1,300 mg 05/10/21 14:00 05/20/21 08:47 Sodium Bicarbonate 650 Mg Tab PO 1,300 mg TID SANTOS Administration Sodium Chloride 10 ml 05/10/21 22:00 05/19/21 23:13 Sodium Chloride 0.9% 10 Ml Flush Syringe IV 10 ml BID SANTOS Administration Sodium Chloride 10 ml 05/10/21 11:26 Sodium Chloride 0.9% 10 Ml Flush Syringe IV PRN PRN LINE FLUSH Trimethoprim/Sulfamethoxazole 1 each 05/14/21 14:00 05/20/21 10:41 Sulfamethoxazole/Trimethoprim 800/160mg Ds Tab PO 06/03/21 22:01 1 each Q12HR SANTOS Administration Protocol Zinc Sulfate 220 mg 05/10/21 22:00 05/20/21 10:41 Zinc Sulfate 220 Mg Cap PO 220 mg BID SANTOS Administration
[2021-05-20] MEDS: ONDANSETRON 4 MG/2 ML INJ IV PRN (12:16)
--- NOTE | 2021-05-20 12:36 | Progress Note ---
Assessment and Plan Cultures: 05/10/2021 blood culture: no growth 05/11/2021 COVID-19 PCR: Positive 05/11/2021 serum cryptococcal antigen: Negative HIV Viral load: 51,000 CD4 count: 0 Fungitell strongly positive, >500 Previous admission labs reviewed: Negative for syphilis, C. difficile PCR, hepatitis panel 04/24/2021 COVID-19 PCR: Positive A/P: 40-year-old male who was recently hospitalized and discharged earlier this month with a new diagnosis of HIV and suspected AIDS along with renal dysfunction. He was also diagnosed with COVID-19 during that admission. He was recommended outpatient follow-up with [facility]. Now readmitted with generalized weakness, worsening shortness of breath: #HIV/AIDS, ?HIVAN: Establishing care for ongoing HIV care is critical now with CD4 count of 0 #COVID-19: Initially tested positive on 04/24/2021, not a candidate for Remdesivir. #Acute hypoxic resp failure: ?COVID v/s renal failure v/s PCP pneumonia. #Pneumomediastinum: likely PCP related, common cause of spontaneous pneumothorax/pneumomediastinum. #PJP pneumonia: Given symptoms and positive Fungitell, likely PJP pneumonia. Fungitell can be falsely elevated by hemodialysis, however would treat empiri annemarie #Acute renal failure: ?HIVAN. Nephrology following. Now on HD. #Esophagitis: on fluconazole. Recs: -Discussed with Dr. Martinez, will switch to IV Bactrim for a few days, when ready for discharge, can convert back to PO Bactrim . Complete total 21 days, then 0.5 tab post dialysis MWF for [employer] prophylaxis -taper steroids over 21 days -Given concern for HIVAN, ART was started on 05/10/2021: continue with lamivudine 100 mg daily, darunavir + ritonavir, dolutegravir -Will need social work/pharmacy assistance to give him at least 2 weeks of ART supply if possible, till patient follows up at HIV clinic ([facility] or [place]) -continue fluconazole 200mg q24h x 3 weeks Ramy Harper MD, FACP, GENNARO [facility] ([facility] O: [phone] F: [phone] Subjective Date of service: 05/20/21 Principal diagnosis: ESRD Interval history: No fever. Complains of pleuritic chest pain. Objective - Exam Narrative Exam: Physical Exam Constitutional: Alert, cooperative. No acute distress Head, Ears, Nose: Normocephalic, atraumatic. External ears, nose normal Eyes: Conjunctivae/corneas clear. No icterus. No ptosis. Neck: Supple, no meningeal signs Cardiovascular: S1, S2 + Respiratory: AE fair b/l, occ crackles GI: Soft, non-tender; bowel sounds normal. No peritoneal signs Musculoskeletal: No pedal edema, no cyanosis. Skin: No rash or abscess Hem/Lymphatic: No palpable cervical or supraclavicular nodes. No lymphangitis Psych: Mood ok. Affect normal Neurological: Awake, alert, oriented. No gross abnormality - Constitutional Vitals: Vital Signs Temp Pulse Resp BP Pulse Ox 98.9 F 140 H 18 110/68 93 05/20/21 05:36 05/20/21 10:44 05/20/21 07:52 05/20/21 10:44 05/20/21 07:59 Temperature -Last 24 Hours Temperature 98.9 F Temperature 98.5 F Temperature 98.1 F Temperature 98.2 F - Labs CBC & Chem 7: 05/20/21 09:45 05/20/21 09:45 Labs: Abnormal lab results 05/20/21 05/20/21 05/20/21 Range/Units 06:25 09:45 09:45 RBC 2.78 L (3.65-5.03) M/mm3 Hgb 8.6 L (11.8-15.2) gm/dl Hct 26.4 L (35.5-45.6) % MCV 95 H (84-94) fl Seg Neuts % (Manual) (40.0-70.0) % Lymphocytes % (Manual) (13.4-35.0) % Seg Neutrophils # Man (1.8-7.7) K/mm3 Lymphocytes # (Manual) (1.2-5.4) K/mm3 Sodium 132 L 132 L (137-145) mmol/L Potassium 3.1 L (3.6-5.0) mmol/L Chloride 91.3 L 90.9 L (98-107) mmol/L BUN 57 H 57 H (9-20) mg/dL Creatinine 5.0 H 5.2 H (0.8-1.3) mg/dL Glucose 112 H (75-100) mg/dL Albumin 2.6 L (3.9-5) g/dL 05/20/21 Range/Units 09:45 RBC 2.78 L (3.65-5.03) M/mm3 Hgb 8.6 L (11.8-15.2) gm/dl Hct 26.4 L (35.5-45.6) % MCV 95 H (84-94) fl Seg Neuts % (Manual) 98.0 H (40.0-70.0) % Lymphocytes % (Manual) 1.0 L (13.4-35.0) % Seg Neutrophils # Man 9.6 H (1.8-7.7) K/mm3 Lymphocytes # (Manual) 0.1 L (1.2-5.4) K/mm3 Sodium (137-145) mmol/L Potassium (3.6-5.0) mmol/L Chloride (98-107) mmol/L BUN (9-20) mg/dL Creatinine (0.8-1.3) mg/dL Glucose (75-100) mg/dL Albumin (3.9-5) g/dL
[2021-05-20] MEDS ORDERED: TMP IV SCH (14:00)
[2021-05-20] MEDS ORDERED: TO ASSIGN FLUID IV SCH (14:00)
[2021-05-20] MEDS ORDERED: SMX IV SCH (14:00)
[2021-05-20] MEDS: FLUCONAZOLE 200 MG TAB PO SCH (16:19)
[2021-05-20] MEDS: WATER IV SCH (16:32)
[2021-05-20] MEDS: TMP IV SCH (16:32)
[2021-05-20] MEDS: DEXTROSE 5% IV SCH (16:32)
[2021-05-20] MEDS: SMX IV SCH (16:32)
--- NOTE | 2021-05-20 19:18 | Progress Note ---
Assessment and Plan Assessment and plan: 40-year-old male who was recently hospitalized and discharged earlier this month with a new diagnosis of HIV and suspected AIDS with associated renal dysfunction. Patient was also noted to have a diagnosis of COVID-19 pneumonia during that admission but not hypoxic at that time. Patient was recommended for outpatient follow-up with [facility]. 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 Noncompliance with ART, initiated given the patient's acute illness HIV associated nephropathy, BILLIE on CKD, HD initiated Accelerated hypertension, resolved Hypotension since HD initiated, poorly tolerating HD Pneumomediastinum and mild subcutaneous emphysema in the neck, newly noted on 05/18 with right IJ tunnel catheter in place, etiology appears to be related to PGP pneumonia/possible cyst rupture. Assessed by pulmonary in consultation on 05/19, needs no acute events and expected to be resolved by itself. Followed by Dr. Graves on 05/19. Leukocytosis on prednisone COVID-19. Patient initially tested + 04/24/2021 and 05/11/2021, was not a candidate for remdesivir. Acute hypoxic respiratory failure. Etiology appears to be multifactorial including renal failure, volume overload and PCP pneumonia , stable on 2 L O2 currently Daily events: 05/11/2021. ID has been consulted and we will follow up HIV viral load, CD4 count and genotype. Follow-up LDH 1 3 beta D glucan. ID started Mepron to cover P MARTINEZ and avoiding Bactrim due to renal failure. We started steroids given the new hypoxia. ID also initiated ART with lamivudine, darunavir plus ritonavir and dolutegravir given the possibility of HIVAN. Consider pulmonary consultation. Nephrology following. Renal ultrasound shows signs of CKD. Nephrology to discuss hemodialysis initiation. Continue strict I's and O's daily and monitor renal function closely 05/12/2021. Patient is s/p placement of a right internal jugular tunneled cuffed hemodialysis catheter and initiation of hemodialysis on 05/11/2021. Patient is also undergo further hemodialysis today. CM consult to place patient at [facility]. We will follow up HIV viral load, CD4 count and genotype. Follow-up LDH 1 3 beta D glucan. ID started Mepron to cover P MARTINEZ and avoiding Bactrim due to renal failure. ID also initiated ART with lamivudine, darunavir plus ritonavir and dolutegravir given the possibility of HIVAN. Continue steroids given the hypoxia. Respiratory status has significantly improved after hemodialysis. I believe volume overload was the most significantly contributing factor/etiology. Follow-up serial chest x-ray. Patient currently with 2 L nasal cannula satting at 99% 05/13/2021. Continue hemodialysis per nephrology recommendations. Await outpatient arrangements for hemodialysis unit. We will follow up HIV viral load, CD4 count and genotype. Follow-up LDH 1 3 beta D glucan. ID started Mepr on to cover P MARTINEZ and avoiding Bactrim due to renal failure. ID also initiated ART with lamivudine, darunavir plus ritonavir and dolutegravir given the possibility of HIVAN. Continue steroids given the hypoxia and change from Solu- Medrol IV to dexamethasone. Procalcitonin level was elevated at 6. We will continue IV antibiotics per ID recommendations 05/14/2021. Continue hemodialysis per nephrology recommendations. Await outpatient arrangements for hemodialysis unit. We will follow up HIV viral load, CD4 count and genotype. Follow-up LDH 1 3 beta D glucan. ID started Mepron to cover P MARTINEZ and avoiding Bactrim due to renal failure. ID also initiated ART with lamivudine, darunavir plus ritonavir and dolutegravir given the possibility of HIVAN. Continue dexamethasone. Patient to follow-up with health department in early May. Case management follow-up with regards to home ART before follow-up with the health department 05/15/2021. Continue hemodialysis per nephrology recommendations. Await outpatient arrangements for hemodialysis unit. Patient wants anxiety medication prior to dialysis. We will start Xanax 0.25 mg as needed. Continue lamivudine, darunavir plus ritonavir and dolutegravir given the possibility of HIVAN. Continue dexamethasone. Patient to follow-up with health department in early May. Case management follow-up with regards to home ART before follow-up with the health department 05/16/2021. Continue hemodialysis per nephrology recommendations. Await outpatient arrangements for hemodialysis unit. Renal US showed CKD signs. Strict I&O's daily. Obtain daily weights. Continue Xanax prior to hemodialysis for anxiety. Continue lamivudine, darunavir plus ritonavir and dolutegravir given the possibility of HIVAN. Continue dexamethasone. Patient to follow-up with health department in early May. Patient with elevated diastolic BP gre ater than 100. We will start Procardia 30 mg twice daily. 05/17/2021. Patient to be initiated on MWF hemodialysis schedule. Patient requesting Xanax for anxiety prior to hemodialysis session. Await outpatient arrangements for hemodialysis unit per case management. Renal ultrasound revealed signs of chronic kidney disease. Continue strict I&O's daily. Obtain daily weights. Continue lamivudine, darunavir plus ritonavir and dolutegravir given the possibility of HIVAN. Continue dexamethasone. Patient to follow-up with health department in early May. Patient's BP much better controlled with the addition of Procardia. 05/18: Hemodialysis was discontinued yesterday after 1 hour if patient request as he was feeling weak with hypotension. BP remains low to 80s. Given NS bolus management this morning. Procardia discontinued. Bumex is on hold. Excellent urine. Still feeling weak. Remains anxious. Asking to be sedated during dialysis. CXR ordered daily Dr. Graves shows mild localized subcutaneous emphysema and right-sided neck pain currently dialysis catheter is placed. A CT chest showed diabetes mellitus with emphysema-like cough. Vascular surgery is addressing this. Sinus tachycardia stable. On room air without acute respite distress at rest. Discussed with the patient, nursing staff and vascular surgery. 05/19:Patient is feeling much better after undergoing hemodialysis for 3 hours today.Breathing much better. Mild subcutis emphysema in the right supraclavicu lar fossa seems stable. This is assisted by pulmonary in consultation and reevaluation by today. No acute intervention required, expected to resolve by itself. Looks more comfortable and less anxious. Remains on 3 L of O2. 05/20: No acute events. Remains on 3 L O2. Pneumomediastinum and subcutaneous emphysema stable. Bactrim changed from p.o. to IV. Sinus tach worse today and received Lopressor IV x1 dose. Discussed with ID. History Interval history: Patient remains on 3 L of oxygen. Anxiety episode resolved. His chronic sinus tachycardia likely from pneumonia, worse today received Lopressor Dose IV. Changed Bactrim to IV. Not ambulating much. Afebrile. Hospitalist Physical - Constitutional Vitals: Temp Pulse Resp BP Pulse Ox 98.3 F 119 H 20 120/77 100 05/20/21 12:27 05/20/21 12:27 05/20/21 12:27 05/20/21 12:27 05/20/21 12:27 General appearance: Present: no acute distress, cachectic, disheveled, other (A nxious) - EENT Eyes: Present: PERRL ENT: clear oral mucosa - Neck Neck: Present: supple, other (Mild subcutaneous emphysema in mellitus supraclavicular fossa stable.) - Respiratory Respiratory effort: normal Respiratory: bilateral: diminished, rales - Cardiovascular Rhythm: other (Sinus tachycardia) - Extremities Extremities: No edema - Abdominal General gastrointestinal: soft, non-tender, non-distended, normal bowel sounds - Integumentary Integumentary: Absent: rash - Psychiatric Psychiatric: other (Less anxious) - Neurologic Neurologic: CNII-XII intact (Alert and oriented. Normal speech.), moves all extremities HEART Score - HEART Score Troponin: Troponin T 0.011 ng/mL (0.00-0.029) 05/19/21 06:50 Results - Labs CBC & Chem 7: 05/20/21 09:45 05/20/21 09:45 Labs: Laboratory Last Values WBC 9.8 K/mm3 (4.5-11.0) 05/20/21 09:45 WBC 9.8 K/mm3 (4.5-11.0) 05/20/21 09:45 RBC 2.78 M/mm3 (3.65-5.03) L 05/20/21 09:45 RBC 2.78 M/mm3 (3.65-5.03) L 05/20/21 09:45 Hgb 8.6 gm/dl (11.8-15.2) L 05/20/21 09:45 Hgb 8.6 gm/dl (11.8-15.2) L 05/20/21 09:45 Hct 26.4 % (35.5-45.6) L 05/20/21 09:45 Hct 26.4 % (35.5-45.6) L 05/20/21 09:45 MCV 95 fl (84-94) H 05/20/21 09:45 MCV 95 fl (84-94) H 05/20/21 09:45 MCH 31 pg (28-32) 05/20/21 09:45 MCH 31 pg (28-32) 05/20/21 09:45 MCHC 33 % (32-34) 05/20/21 09:45 MCHC 33 % (32-34) 05/20/21 09:45 RDW 14.9 % (13.2-15.2) 05/20/21 09:45 RDW 14.9 % (13.2-15.2) 05/20/21 09:45 Plt Count 377 K/mm3 (140-440) 05/20/21 09:45 Plt Count 377 K/mm3 (140-440) 05/20/21 09:45 Lymph % (Auto) Not Reportable 05/20/21 09:45 Sawyer % (Auto) Not Reportable 05/20/21 09:45 Eos % (Auto) Not Reportable 05/20/21 09:45 Baso % (Auto) Not Reportable 05/20/21 09:45 Lymph # (Auto) Not Reportable 05/20/21 09:45 Sawyer # (Auto) Not Reportable 05/20/21 09:45 Eos # (Auto) Not Reportable 05/20/21 09:45 Baso # (Auto) Not Reportable 05/20/21 09:45 Add Manual Diff Complete 05/20/21 09:45 Total Counted 100 05/20/21 09:45 Seg Neutrophils % Pairer Inspector 05/20/21 09:45 Seg Neuts % (Manual) 98.0 % (40.0-70.0) H 05/20/21 09:45 Band Neutrophils % 0 % 05/20/21 09:45 Lymphocytes % (Manual) 1.0 % (13.4-35.0) L 05/20/21 09:45 Reactive Lymphs % (Man) 0 % 05/20/21 09:45 Monocytes % (Manual) 1.0 % (0.0-7.3) 05/20/21 09:45 Eosinophils % (Manual) 0 % (0.0-4.3) 05/20/21 09:45 Basophils % (Manual) 0 % (0.0-1.8) 05/20/21 09:45 Metamyelocytes % 0 % 05/20/21 09:45 Myelocytes % 0 % 05/20/21 09:45 Promyelocytes % 0 % 05/20/21 09:45 Blast Cells % 0 % 05/20/21 09:45 Nucleated RBC % Not Reportable 05/20/21 09:45 Seg Neutrophils # Not Reportable 05/20/21 09:45 Seg Neutrophils # Man 9.6 K/mm3 (1.8-7.7) H 05/20/21 09:45 Band Neutrophils # 0.0 K/mm3 05/20/21 09:45 Abs Lymphs (Manual) 291 cells/uL (850-3900) L 05/10/21 17:09 Lymphocytes # (Manual) 0.1 K/mm3 (1.2-5.4) L 05/20/21 09:45 Abs React Lymphs (Man) 0.0 K/mm3 05/20/21 09:45 Monocytes # (Manual) 0.1 K/mm3 (0.0-0.8) 05/20/21 09:45 Eosinophils # (Manual) 0.0 K/mm3 (0.0-0.4) 05/20/21 09:45 Basophils # (Manual) 0.0 K/mm3 (0.0-0.1) 05/20/21 09:45 Metamyelocytes # 0.0 K/mm3 05/20/21 09:45 Myelocytes # 0.0 K/mm3 05/20/21 09:45 Promyelocytes # 0.0 K/mm3 05/20/21 09:45 Blast Cells # 0.0 K/mm3 05/20/21 09:45 WBC Morphology Not Reportable 05/20/21 09:45 Hypersegmented Neuts Rare 05/20/21 09:45 Hyposegmented Neuts Not Reportable 05/20/21 09:45 Hypogranular Neuts Not Reportable 05/20/21 09:45 Smudge Cells Not Reportable 05/20/21 09:45 Toxic Granulation 1+ 05/20/21 09:45 Toxic Vacuolation Not Reportable 05/20/21 09:45 Dohle Bodies Rare 05/20/21 09:45 Pelger-Huet Anomaly Not Reportable 05/20/21 09:45 Karishma Rods Not Reportable 05/20/21 09:45 Platelet Estimate Consistent w auto 05/20/21 09:45 Clumped Platelets Not Reportable 05/20/21 09:45 Plt Clumps, EDTA Not Reportable 05/20/21 09:45 Large Platelets Not Reportable 05/20/21 09:45 Giant Platelets Not Reportable 05/20/21 09:45 Platelet Satelliting Not Reportable 05/20/21 09:45 Plt Morphology Comment Not Reportable 05/20/21 09:45 RBC Morphology Not Reportable 05/20/21 09:45 Dimorphic RBCs Not Reportable 05/20/21 09:45 Polychromasia Not Reportable 05/20/21 09:45 Hypochromasia Not Reportable 05/20/21 09:45 Poikilocytosis Not Reportable 05/20/21 09:45 Anisocytosis 1+ 05/20/21 09:45 Microcytosis Not Reportable 05/20/21 09:45 Macrocytosis Not Reportable 05/20/21 09:45 Spherocytes Not Reportable 05/20/21 09:45 Pappenheimer Bodies Not Reportable 05/20/21 09:45 Sickle Cells Not Reportable 05/20/21 09:45 Target Cells Not Reportable 05/20/21 09:45 Tear Drop Cells Not Reportable 05/20/21 09:45 Ovalocytes Not Reportable 05/20/21 09:45 Helmet Cells Not Reportable 05/20/21 09:45 Bragg-Rew Bodies Not Reportable 05/20/21 09:45 [place] Rings Not Reportable 05/20/21 09:45 Bernarda Cells Not Reportable 05/20/21 09:45 Bite Cells Not Reportable 05/20/21 09:45 Crenated Cell Not Reportable 05/20/21 09:45 Elliptocytes Not Reportable 05/20/21 09:45 Acanthocytes (Spur) Not Reportable 05/20/21 09:45 Rouleaux Not Reportable 05/20/21 09:45 Hemoglobin C Crystals Not Reportable 05/20/21 09:45 Schistocytes Not Reportable 05/20/21 09:45 Malaria parasites Not Reportable 05/20/21 09:45 Angus Bodies Not Reportable 05/20/21 09:45 Hem Pathologist Commnt No 05/20/21 09:45 D-Dimer 730.16 ng/mlDDU (0-234) H 05/10/21 09:45 Sodium 132 mmol/L (137-145) L 05/20/21 09:45 Potassium 3.1 mmol/L (3.6-5.0) L 05/20/21 09:45 Chloride 90.9 mmol/L (98-107) L 05/20/21 09:45 Carbon Dioxide 25 mmol/L (22-30) 05/20/21 09:45 Anion Gap 19 mmol/L 05/20/21 09:45 BUN 57 mg/dL (9-20) H 05/20/21 09:45 Creatinine 5.2 mg/dL (0.8-1.3) H 05/20/21 09:45 Estimated GFR 15 ml/min 05/20/21 09:45 BUN/Creatinine Ratio 11 % 05/20/21 09:45 Glucose 112 mg/dL (75-100) H 05/20/21 09:45 Lactic Acid 2.10 mmol/L (0.7-2.0) H* 05/11/21 09:53 Calcium 8.4 mg/dL (8.4-10.2) 05/20/21 09:45 Magnesium 2.00 mg/dL (1.7-2.3) 05/20/21 09:45 Ferritin 1426.0 ng/mL (30.0-300.0) H 05/10/21 09:45 Total Bilirubin 0.20 mg/dL (0.1-1.2) 05/20/21 09:45 AST 39 units/L (5-40) 05/20/21 09:45 ALT 35 units/L (7-56) 05/20/21 09:45 Alkaline Phosphatase 86 units/L (35-129) 05/20/21 09:45 Lactate Dehydrogenase 600 units/L (91-180) H 05/10/21 09:45 Lactate Dehydrogenase 623 units/L (91-180) H 05/10/21 09:45 Total Creatine Kinase 31 units/L (55-170) L 05/10/21 09:45 CK-MB (CK-2) < 1.0 ng/mL (0.0-4.0) 05/10/21 09:45 CK-MB (CK-2) Rel Index 3.2 (0-4) 05/10/21 09:45 Troponin T 0.011 ng/mL (0.00-0.029) 05/19/21 06:50 C-Reactive Protein 8.90 mg/dL (0.00-1.30) H 05/10/21 09:45 C-Reactive Protein 9.00 mg/dL (0.00-1.30) H 05/10/21 09:45 NT-Pro-B Natriuret Pep 4065 pg/mL (0-450) H 05/10/21 09:45 Total Protein 6.3 g/dL (6.3-8.2) 05/20/21 09:45 Albumin 2.6 g/dL (3.9-5) L 05/20/21 09:45 Albumin/Globulin Ratio 0.7 % 05/20/21 09:45 Procalcitonin 6.81 ng/mL (<0.15) 05/10/21 09:45 TSH 2.390 mlU/mL (0.270-4.200) 05/10/21 09:45 Free T4 0.94 ng/dL (0.76-1.46) 05/10/21 09:45 Urine Color Yellow (Yellow) 05/10/21 13:49 Urine Turbidity Clear (Clear) 05/10/21 13:49 Urine pH 8.0 (5.0-7.0) H 05/10/21 13:49 Ur Specific [place] 1.025 (1.003-1.030) 05/10/21 13:49 Urine Protein 100 mg/dl mg/dL (Negative) 05/10/21 13:49 Urine Glucose (UA) Negative mg/dL (Negative) 05/10/21 13:49 Urine Ketones Negative mg/dL (Negative) 05/10/21 13:49 Urine Blood Negative (Negative) 05/10/21 13:49 Urine Nitrite Negative (Negative) 05/10/21 13:49 Ur Reducing Substances Not Reportable 05/10/21 13:49 Urine Bilirubin Negative (Negative) 05/10/21 13:49 Urine Ictotest Not Reportable 05/10/21 13:49 Urine Urobilinogen 0.0 mg/dL (<2.0) 05/10/21 13:49 Ur Leukocyte Esterase Negative (Negative) 05/10/21 13:49 Urine WBC (Auto) 2.0 /HPF (0.0-6.0) 05/10/21 13:49 Urine RBC (Auto) < 1.0 /HPF (0.0-6.0) 05/10/21 13:49 U Epithel Cells (Auto) 1.0 /HPF (0-13.0) 05/10/21 13:49 Lymph Enumerat CD4/CD8 0.00 (0.86-5.00) L 05/10/21 17:09 % CD3 Cells 78 % (57-85) 05/10/21 17:09 Absolute CD3 Count 228 cells/uL (840-3060) L 05/10/21 17:09 % CD4 Cells 0 % (30-61) L 05/10/21 17:09 Absolute CD4 Count 0 cells/uL (490-1740) L 05/10/21 17:09 % CD8 Cells 78 % (12-42) H 05/10/21 17:09 Absolute CD8 Count 239 cells/uL (180-1170) 05/10/21 17:09 % CD19 Cells 1 % (6-29) L 05/10/21 17:09 Absolute CD19 Count 2 cells/uL (110-660) L 05/10/21 17:09 Coronavirus (PCR) Positive (Negative) A 05/11/21 09:00 Hepatitis A IgM Ab Non-reactive (NonReactive) 05/11/21 09:53 Hep Bs Antigen Non-reactive (Negative) 05/11/21 09:53 Hep B Core IgM Ab Non-reactive (NonReactive) 05/11/21 09:53 Hepatitis C Antibody Non-reactive (NonReactive) 05/11/21 09:53 HIV-1 RNA PCR copies/ml 55270 Copies/mL H 05/10/21 17:09 HIV-1 RNA (PCR) log 4.71 Log cps/mL H 05/10/21 17:09 HIV-1 Genotyping Detected H 05/11/21 09:53 Miscellaneous Test Flexitest 1 H 05/11/21 12:41 Krsihnan/IV: Voiding Method Bedpan Active Medications - Current Medications Current Medications: Generic Name Dose Route Start Last Admin Trade Name Freq PRN Reason Stop Dose Admin Acetaminophen 650 mg 05/10/21 11:26 05/20/21 09:00 Acetaminophen 325 Mg Tab PO 650 mg Q4H PRN Administration Pain MILD(1-3)/Fever >100.5/LANGLEY Albuterol 2.5 mg 05/10/21 11:26 05/20/21 07:52 Albuterol 2.5 Mg/3 Ml Nebu IH 2.5 mg Q4HRT PRN Administration Shortness Of Breath Alprazolam 0.25 mg 05/15/21 09:38 05/19/21 10:36 Alprazolam 0.25 Mg Tab PO 0.25 mg DAILY PRN Administration Anxiety Ascorbic Acid 500 mg 05/10/21 22:00 05/20/21 10:47 Ascorbic Acid 500 Mg Tab PO 500 mg BID SANTOS Administration Bumetanide 1 mg 05/20/21 22:00 Bumetanide 1 Mg/4 Ml Inj IV BID SANTOS Cholecalciferol 1,000 unit 05/11/21 10:00 05/20/21 10:00 Cholecalciferol (Vit D3) 400 Unit Tab PO 1,000 unit QDAY SANTOS Administration Darunavir 800 mg 05/10/21 14:45 05/20/21 10:40 Darunavir 800 Mg Tab PO 800 mg QDAY SANTOS Administration Dolutegravir Sodium 50 mg 05/10/21 15:00 05/20/21 10:42 Dolutegravir 50 Mg Tab PO 50 mg QDAY SANTOS Administration Fluconazole 200 mg 05/19/21 19:00 05/20/21 16:19 Fluconazole 200 Mg Tab PO 06/08/21 10:01 200 mg QDAY SANTOS Administration Protocol Heparin Sodium (Porcine) 5,000 unit 05/10/21 22:00 05/20/21 10:40 Heparin 5,000 Unit/1 Ml Vial SUB-Q 5,000 unit Q12HR SANTOS Administration Sodium Chloride 100 mls @ 999 mls/hr 05/13/21 13:10 Nacl 0.9% IV TRENT PRN Hypotension Trimethoprim/Sulfamethoxazole 158.125 mls @ 105.417 mls/hr 05/20/21 16:00 05/20/21 16:32 130 mg/ Dextrose/ IV 105.417 mls/hr Miscellaneous Information Q8H SANTOS Administration Lamivudine 100 mg 05/10/21 15:00 05/20/21 10:48 Lamivudine 50 Mg/5 Ml Oral Liqd PO 100 mg DAILY SANTOS Administration Multivitamins/Minerals 1 each 05/11/21 10:00 05/20/21 10:41 Multivitamins,Ther W-Minerals Tab PO 1 each QDAY SANTOS Administration Ondansetron HCl 4 mg 05/10/21 11:26 05/20/21 12:16 Ondansetron 4 Mg/2 Ml Inj IV 4 mg Q8H PRN Administration Nausea And Vomiting Prednisone 30 mg 05/15/21 10:00 05/20/21 10:41 Prednisone 10 Mg Tab PO 30 mg QDAY SANTOS Administration Ritonavir 100 mg 05/10/21 15:00 05/20/21 10:47 Ritonavir 100 Mg Tab PO 100 mg QDAY SANTOS Administration Sodium Bicarbonate 1,300 mg 05/10/21 14:00 05/20/21 16:20 Sodium Bicarbonate 650 Mg Tab PO 1,300 mg TID SANTOS Administration Sodium Chloride 10 ml 05/10/21 22:00 05/20/21 16:20 Sodium Chloride 0.9% 10 Ml Flush Syringe IV 10 ml BID SANTOS Administration Sodium Chloride 10 ml 05/10/21 11:26 Sodium Chloride 0.9% 10 Ml Flush Syringe IV PRN PRN LINE FLUSH Zinc Sulfate 220 mg 05/10/21 22:00 05/20/21 10:41 Zinc Sulfate 220 Mg Cap PO 220 mg BID SANTOS Administration Nutrition/Malnutrition Assess - Dietary Evaluation Nutrition/Malnutrition Findings: Nutrition Notes Start: 05/11/21 12:44 Freq: Status: Active Protocol: Document 05/14/21 11:10 [facility] (Rec: 05/14/21 11:16 [facility] [id number]) Nutrition Notes Initial or Follow up Reassessment Current Diagnosis Respiratory Failure Other Pertinent Diagnosis HIV/AIDS, ARF, COVID-19 (+) Current Diet Renal + Nepro TID Labs/Tests Na 135 BUN 67 Cr 5.2 Pertinent Medications Decadron, MVI with minerals, Bumex Height 6 ft 2 in Weight 55.8 kg [place] Body Weight (kg) 86.36 BMI 15.7 Weight Status Underweight Subjective/Other Information Pt consumed 50% of 2 meals on 05/12; no other PO intakes documented. HD initiated. Spoke with pt via phone (14:55 ). He says his appetite is good, however, his meals are usually cold when he gets them ; he has been ordering peanut butter and jelly sandwiches ( x2) daily and drinking Nepro shakes. Percent of energy/protein needs met: 52% energy 57% pro (excludes ONS) Burn Absent Trauma Absent Current % PO Fair (50-74%) Minimum of two criteria Yes #1 Nutrition Diagnosis Underweight Diagnosis Progress(for reassessment Continues documentation) Is patient on ventilator? No Is Patient Ambulatory and/or Out of Bed Yes REE-(Bradley-St. Jeor-ambulatory/OOB) [ 1999.075 [id number]] Kcal/Kg value to use for calculation 45 Approximate Energy Requirements Using 2511 kcal/Kg Calculation Used for Recommendations Kcal/kg Additional Notes Pro needs >1.2g/kg: >67g/day Fluid needs 1-1.5L/day Nutrition Intervention Change Diet Order: Continue current diet order; honor food preferences Add Supplement/Snack (indicate name/kcal Nepro TID /protein ) Provides kCal: 1,275 Provides Protein (gm) 57 Goal #1 PO intake of meals plus ONS to meet 100% energy and pro needs Goal #2 Wt maintenance and/or gain Anticipated Discharge Needs: Continue ONS 2-3 times daily for wt maintenance Follow-Up By: 05/21/21 Additional Comments F/U: intakes (meals/ONS), wt
[2021-05-21] MEDS: SMX IV SCH ×4 (00:39→23:55)
[2021-05-21] MEDS: TMP IV SCH ×4 (00:39→23:55)
[2021-05-21] MEDS: DEXTROSE 5% IV SCH ×4 (00:39→23:55)
[2021-05-21] MEDS: WATER IV SCH ×4 (00:39→23:55)
[2021-05-21] MEDS ORDERED: POTASSIUM CHLORIDE ER 20 MEQ TAB PO ONE (04:50)
[2021-05-21 06:20] LABS: Calcium 8.5 mg/dL (8.4-10.2)
[2021-05-21] MEDS: ALBUTEROL 2.5 MG/3 ML NEBU IH PRN ×2 (08:28→20:05)
[2021-05-21] MEDS: SODIUM BICARBONATE 650 MG TAB PO SCH ×3 (08:46→21:21)
[2021-05-21] MEDS: predniSONE 10 MG TAB PO SCH (09:07)
[2021-05-21] MEDS: ASCORBIC ACID 500 MG TAB PO SCH ×2 (09:07→21:23)
[2021-05-21] MEDS: MULTIVITAMINS,THER W-MINERALS TAB PO SCH (09:07)
[2021-05-21] MEDS: ZINC SULFATE 220 MG CAP PO SCH ×2 (09:07→21:24)
[2021-05-21] MEDS: ALPRAZolam 0.25 MG TAB PO PRN (09:08)
[2021-05-21] MEDS: HEPARIN 5,000 UNIT/1 ML VIAL SUB-Q SCH ×2 (10:00→21:21)
[2021-05-21] MEDS: BUMETANIDE 1 MG/4 ML INJ IV SCH ×2 (10:00→21:20)
--- NOTE | 2021-05-21 10:18 | Progress Note ---
Assessment and Plan Sepsis Pneumonia Malnutrition Acute respiratory failure with hypoxia COVID-19 positive HIV (human immunodeficiency virus infection) Progressive CKD likely ESRD Plan: HD today for clearance and volume removal Kidney disease could be related to HIVAN Renal US showed CKD signs Renally dose medications Strict I&O's daily Obtain daily weights CM onboard for outpatient HD placement Subjective Date of service: 05/21/21 Principal diagnosis: ESRD Interval history: no overnight events Objective - Vital Signs Vital signs: Vital Signs - 12hr 05/21/21 05/21/21 05/21/21 05:28 08:26 08:28 Temperature 98.5 F Pulse Rate 117 H Pulse Rate [ 135 H Bilateral Throughout] Respiratory 18 Rate Respiratory 18 Rate [Bilateral Throughout] Blood Pressure 125/78 [Left] O2 Sat by Pulse 96 93 Oximetry - Lab 05/20/21 09:45 05/21/21 05:35 Most recent lab results Calcium 8.5 mg/dL (8.4-10.2) 05/21/21 05:35 Magnesium 2.30 mg/dL (1.7-2.3) 05/21/21 05:35 Medications & Allergies - Medications Allergies/Adverse Reactions: Allergies No Known Allergies Allergy (Verified 04/20/21 08:43) Home Medications: Home Medications Medication Instructions Recorded Confirmed Last Taken Type Multivit-Min/Folic/Vit K/Lycop 1 tab PO QDAY 04/21/21 05/13/21 3 Days Ago History [Men's Multivitamin Tablet] ~04/18/21 Sodium Bicarbonate 1,300 mg PO TID #90 tablet 05/01/21 05/13/21 Unknown Rx Active Medications: Generic Name Dose Route Start Last Admin Trade Name Isaíasq PRN Reason Stop Dose Admin Acetaminophen 650 mg 05/10/21 11:26 05/20/21 09:00 Acetaminophen 325 Mg Tab PO 650 mg Q4H PRN Administration Pain MILD(1-3)/Fever >100.5/LANGLEY Albuterol 2.5 mg 05/10/21 11:26 05/21/21 08:28 Albuterol 2.5 Mg/3 Ml Nebu IH 2.5 mg Q4HRT PRN Administration Shortness Of Breath Alprazolam 0.25 mg 05/15/21 09:38 05/21/21 09:08 Alprazolam 0.25 Mg Tab PO 0.25 mg DAILY PRN Administration Anxiety Ascorbic Acid 500 mg 05/10/21 22:00 05/21/21 09:07 Ascorbic Acid 500 Mg Tab PO 500 mg BID SANTOS Administration Bumetanide 1 mg 05/20/21 22:00 05/20/21 22:34 Bumetanide 1 Mg/4 Ml Inj IV 1 mg BID SANTOS Administration Cholecalciferol 1,000 unit 05/11/21 10:00 05/20/21 10:00 Cholecalciferol (Vit D3) 400 Unit Tab PO 1,000 unit QDAY SANTOS Administration Darunavir 800 mg 05/10/21 14:45 05/20/21 10:40 Darunavir 800 Mg Tab PO 800 mg QDAY SANTOS Administration Dolutegravir Sodium 50 mg 05/10/21 15:00 05/20/21 10:42 Dolutegravir 50 Mg Tab PO 50 mg QDAY SANTOS Administration Fluconazole 200 mg 05/19/21 19:00 05/20/21 16:19 Fluconazole 200 Mg Tab PO 06/08/21 10:01 200 mg QDAY SANTOS Administration Protocol Heparin Sodium (Porcine) 5,000 unit 05/10/21 22:00 05/20/21 22:34 Heparin 5,000 Unit/1 Ml Vial SUB-Q 5,000 unit Q12HR SANTOS Administration Sodium Chloride 100 mls @ 999 mls/hr 05/13/21 13:10 Nacl 0.9% IV TRENT PRN Hypotension Trimethoprim/Sulfamethoxazole 158.125 mls @ 105.417 mls/hr 05/20/21 16:00 05/21/21 08:55 130 mg/ Dextrose/ IV 105.417 mls/hr Miscellaneous Information Q8H SANTOS Administration Lamivudine 100 mg 05/10/21 15:00 05/20/21 10:48 Lamivudine 50 Mg/5 Ml Oral Liqd PO 100 mg DAILY SANTOS Administration Multivitamins/Minerals 1 each 05/11/21 10:00 05/21/21 09:07 Multivitamins,Ther W-Minerals Tab PO 1 each QDAY SANTOS Administration Ondansetron HCl 4 mg 05/10/21 11:26 05/20/21 12:16 Ondansetron 4 Mg/2 Ml Inj IV 4 mg Q8H PRN Administration Nausea And Vomiting Prednisone 30 mg 05/15/21 10:00 05/21/21 09:07 Prednisone 10 Mg Tab PO 30 mg QDAY SANTOS Administration Ritonavir 100 mg 05/10/21 15:00 05/20/21 10:47 Ritonavir 100 Mg Tab PO 100 mg QDAY SANTOS Administration Sodium Bicarbonate 1,300 mg 05/10/21 14:00 05/21/21 08:46 Sodium Bicarbonate 650 Mg Tab PO 1,300 mg TID SANTOS Administration Sodium Chloride 10 ml 05/10/21 22:00 05/20/21 22:38 Sodium Chloride 0.9% 10 Ml Flush Syringe IV 10 ml BID SANTOS Administration Sodium Chloride 10 ml 05/10/21 11:26 Sodium Chloride 0.9% 10 Ml Flush Syringe IV PRN PRN LINE FLUSH Zinc Sulfate 220 mg 05/10/21 22:00 05/21/21 09:07 Zinc Sulfate 220 Mg Cap PO 220 mg BID SANTOS Administration
--- NOTE | 2021-05-21 12:32 | Progress Note ---
Assessment and Plan Cultures: 05/10/2021 blood culture: no growth 05/11/2021 COVID-19 PCR: Positive 05/11/2021 serum cryptococcal antigen: Negative HIV Viral load: 51,000 CD4 count: 0 Fungitell strongly positive, >500 Previous admission labs reviewed: Negative for syphilis, C. difficile PCR, hepatitis panel 04/24/2021 COVID-19 PCR: Positive A/P: 40-year-old male who was recently hospitalized and discharged earlier this month with a new diagnosis of HIV and suspected AIDS along with renal dysfunction. He was also diagnosed with COVID-19 during that admission. He was recommended outpatient follow-up with [facility]. Now readmitted with generalized weakness, worsening shortness of breath: #HIV/AIDS, ?HIVAN: Establishing care for ongoing HIV care is critical now with CD4 count of 0 #COVID-19: Initially tested positive on 04/24/2021, not a candidate for Remdesivir. #Acute hypoxic resp failure: ?COVID v/s renal failure v/s PCP pneumonia. #Pneumomediastinum: likely PCP related, common cause of spontaneous pneumothorax/pneumomediastinum. #PJP pneumonia: Given symptoms and positive Fungitell, likely PJP pneumonia. Fungitell can be falsely elevated by hemodialysis, however would treat empirically #Acute renal failure: ?HIVAN. Nephrology following. Now on HD. #Esophagitis: on fluconazole. Recs: -continue renally adjusted IV Bactrim for a few days, when ready for discharge, can convert back to PO Bactrim . Complete total 21 days, then 0.5 tab post dialysis MWF for senior living prophylaxis -taper steroids over 21 days -Given concern for HIVAN, ART was started on 05/10/2021: continue with lamivudine 100 mg daily, darunavir + ritonavir, dolutegravir -Will need social work/pharmacy assistance to give him at least 2 weeks of ART supply if possible, till patient follows up at HIV clinic ([facility] or [place]) -continue fluconazole 200mg q24h x 3 weeks Ramy Harper MD, FACP, GENNARO [facility] ([facility] O: [phone] F: [phone] Subjective Date of service: 05/21/21 Principal diagnosis: ESRD Interval history: No fever. Seen at dialysis. Remains on oxygen. Objective - Exam Narrative Exam: Physical Exam Constitutional: Alert, cooperative. No acute distress Head, Ears, Nose: Normocephalic, atraumatic. External ears, nose normal Eyes: Conjunctivae/corneas clear. No icterus. No ptosis. Neck: Supple, no meningeal signs Cardiovascular: S1, S2 + Respiratory: AE fair b/l, occ crackles GI: Soft, non-tender; bowel sounds normal. No peritoneal signs Musculoskeletal: No pedal edema, no cyanosis. Skin: No rash or abscess Hem/Lymphatic: No palpable cervical or supraclavicular nodes. No lymphangitis Psych: Mood ok. Affect normal Neurological: Awake, alert, oriented. No gross abnormality - Constitutional Vitals: Vital Signs Temp Pulse Resp BP Pulse Ox 97.2 F L 125 H 18 139/85 98 05/21/21 09:55 05/21/21 10:45 05/21/21 09:55 05/21/21 10:45 05/21/21 09:55 Temperature -Last 24 Hours Temperature 97.2 F Temperature 98.5 F Temperature 98.2 F Temperature 99.2 F - Labs CBC & Chem 7: 05/20/21 09:45 05/21/21 05:35 Labs: Abnormal lab results 05/11/21 05/21/21 Range/Units 09:53 05:35 Sodium 130 L (137-145) mmol/L Chloride 88.4 L (98-107) mmol/L BUN 69 H (9-20) mg/dL Creatinine 6.6 H (0.8-1.3) mg/dL Glucose 137 H (75-100) mg/dL HIV-1 Genotyping Detected H
[2021-05-21] MEDS: RITONAVIR 100 MG TAB PO SCH (17:00)
[2021-05-21] MEDS: FLUCONAZOLE 200 MG TAB PO SCH (17:00)
[2021-05-21] MEDS: lamiVUDine 50 MG/5 ML ORAL LIQD PO SCH (17:00)
[2021-05-21] MEDS: DOLUTEGRAVIR 50 MG TAB PO SCH (17:01)
[2021-05-21] MEDS: DARUNAVIR 800 MG TAB PO SCH (17:01)
[2021-05-21] MEDS: CHOLECALCIFEROL (VIT D3) 1000 UNIT (25 mcg) TAB PO SCH (17:10)
--- NOTE | 2021-05-21 18:57 | Progress Note ---
Assessment and Plan Assessment and plan: 40-year-old male who was recently hospitalized and discharged earlier this month with a new diagnosis of HIV and suspected AIDS with associated renal dysfunction. Patient was also noted to have a diagnosis of COVID-19 pneumonia during that admission but not hypoxic at that time. Patient was recommended for outpatient follow-up with [facility] department. Patient is now readmitted with complaints of generalized weakness and worsening shortness of breath Assessment and plans: PJP pneumonia: On IV Bactrim, to be switched to oral at the time of discharge to complete 21-day course followed by chemoprophylaxis with half a tablet, 3 times a week after dialysis as per ID recommendations. Acute hypoxic respiratory failure. Etiology appears to be multifactorial including renal failure, volume overload and PCP pneumonia , improved/stable on 23 L O2 currently Pneumomediastinum and mild subcutaneous emphysema in the neck, newly noted on 05/18 with right IJ tunnel catheter in place, etiology appears to be related to PGP pneumonia/possible cyst rupture. Assessed by pulmonary in consultation on 05/19, needs no acute events and expected to be resolved by itself. Followed by Dr. Graves on 05/19. Sinus tachycardia, physiological response to pneumonia and hypoxia, stable HIV, suspected AIDS as patient is having PCP pneumonia. Noncompliance with ART, initiated ART given the patient's acute illness HIV associated nephropathy, BILLIE on CKD, HD initiated and nephrology recommends continuation of dialysis after discharge. Accelerated hypertension, resolved Hypotension since HD initiated, poorly tolerating HD initially but improving Leukocytosis on prednisone COVID-19. Patient initially tested + 04/24/2021 and 05/11/2021, was not a candidate for remdesivir. Severe anxiety: Improving Cachexia/malnutrition, dietary consulted Daily events: 05/11/2021. ID has been consulted and we will follow up HIV viral load, CD4 count and genotype. Follow-up LDH 1 3 beta D glucan. ID started Mepron to cover P MARTINEZ and avoiding Bactrim due to renal failure. We started steroids given the new hypoxia. ID also initiated ART with lamivudine, darunavir plus ritonavir and dolutegravir given the possibility of HIVAN. Consider pulmonary consultation. Nephrology following. Renal ultrasound shows signs of CKD. Nephrology to discuss hemodialysis initiation. Continue strict I's and O's daily and monitor renal function closely 05/12/2021. Patient is s/p placement of a right internal jugular tunneled cuffed hemodialysis catheter and initiation of hemodialysis on 05/11/2021. Patient is also undergo further hemodialysis today. CM consult to place patient at [facility]. We will follow up HIV viral load, CD4 count and genotype. Follow-up LDH 1 3 beta D glucan. ID started Mepron to cover P MARTINEZ and avoiding Bactrim due to renal failure. ID also initiated ART with lamivudine, darunavir plus ritonavir and dolutegravir given the possibility of HIVAN. Continue steroids given the hypoxia. Respiratory status has significantly improved after hemodialysis. I believe volume overload was the most significantly contributing factor/etiology. Follow-up serial chest x-ray. Patient currently with 2 L nasal cannula satting at 99% 05/13/2021. Continue hemodialysis per nephrology recommendations. Await outpatient arrangements for hemodialysis unit. We will follow up HIV viral load, CD4 count and genotype. Follow-up LDH 1 3 beta D glucan. ID started Mepron to cover P MARTINEZ and avoiding Bactrim due to renal failure. ID also initiated ART with lamivudine, darunavir plus ritonavir and dolutegravir given the possibility of HIVAN. Continue steroids given the hypoxia and change from Solu-Medrol IV to dexamethasone. Procalcitonin level was elevated at 6. We will continue IV antibiotics per ID recommendations 05/14/2021. Continue hemodialysis per nephrology recommendations. Await outpatient arrangements for hemodialysis unit. We will follow up HIV viral load, CD4 count and genotype. Follow-up LDH 1 3 beta D glucan. ID started Mepron to cover P MARTINEZ and avoiding Bactrim due to renal failure. ID also initiated ART with lamivudine, darunavir plus ritonavir and dolutegravir given the possibility of HIVAN. Continue dexamethasone. Patient to follow-up with health department in early May. Case management follow-up with regards to home ART before follow-up with the health department 05/15/2021. Continue hemodialysis per nephrology recommendations. Await outpatient arrangements for hemodialysis unit. Patient wants anxiety medication prior to dialysis. We will start Xanax 0.25 mg as needed. Continue lamivudine, darunavir plus ritonavir and dolutegravir given the possibility of HIVAN. Continue dexamethasone. Patient to follow-up with health department in early May. Case management follow-up with regards to home ART before follow-up with the health department 05/16/2021. Continue hemodialysis per nephrology recommendations. Await outpatient arrangements for hemodialysis unit. Renal US showed CKD signs. Strict I&O's daily. Obtain daily weights. Continue Xanax prior to hemodialysis for anxiety. Continue lamivudine, darunavir plus ritonavir and dolutegravir given the possibility of HIVAN. Continue dexamethasone. Patient to follow-up with health department in early May. Patient with elevated diastolic BP greater than 100. We will start Procardia 30 mg twice daily. 05/17/2021. Patient to be initiated on MWF hemodialysis schedule. Patient requesting Xanax for anxiety prior to hemodialysis session. Await outpatient arrangements for hemodialysis unit per case management. Renal ultrasound revealed signs of chronic kidney disease. Continue strict I&O's daily. Obtain daily weights. Continue lamivudine, darunavir plus ritonavir and dolutegravir given the possibility of HIVAN. Continue dexamethasone. Patient to follow-up with health department in early May. Patient's BP much better controlled with the addition of Procardia. 05/18: Hemodialysis was discontinued yesterday after 1 hour if patient request as he was feeling weak with hypotension. BP remains low to 80s. Given NS bolus management this morning. Procardia discontinued. Bumex is on hold. Excellent urine. Still feeling weak. Remains anxious. Asking to be sedated during dialy sis. CXR ordered daily Dr. Graves shows mild localized subcutaneous emphysema and right-sided neck pain currently dialysis catheter is placed. A CT chest showed diabetes mellitus with emphysema-like cough. Vascular surgery is addressing this. Sinus tachycardia stable. On room air without acute respite distress at rest. Discussed with the patient, nursing staff and vascular surgery. 05/19:Patient is feeling much better after undergoing hemodialysis for 3 hours today.Breathing much better. Mild subcutis emphysema in the right supraclavicular fossa seems stable. This is assisted by pulmonary in consultation and reevaluation by today. No acute intervention required, expected to resolve by itself. Looks more comfortable and less anxious. Remains on 3 L of O2. 05/20: No acute events. Remains on 3 L O2. Pneumomediastinum and subcutaneous emphysema stable. Bactrim changed from p.o. to IV. Sinus tach worse today and received Lopressor IV x1 dose. Discussed with ID. 05/21: No acute events, stable, awaiting outpatient dialysis arrangements for discharge. History Interval history: Patient remains stable. Afebrile. Needing to his home O2. Sinus tachycardia stable. Anxiety better. Hospitalist Physical - Constitutional Vitals: Temp Pulse Resp BP Pulse Ox 98.2 F 123 H 18 141/90 98 05/21/21 13:15 05/21/21 13:15 05/21/21 13:15 05/21/21 13:15 05/21/21 13:15 General appearance: Present: no acute distress, cachectic, disheveled, other (Anxious) - EENT Eyes: Present: PERRL, EOM intact ENT: clear oral mucosa - Neck Neck: Present: supple - Respiratory Respiratory effort: normal Respiratory: bilateral: diminished, rales - Cardiovascular Rhythm: other (Sinus tachycardia) - Extremities Extremities: No edema - Abdominal General gastrointestinal: soft, non-tender, non-distended, normal bowel sounds - Integumentary Integumentary: Absent: rash - Psychiatric Psychiatric: cooperative, other (Anxiety better) - Neurologic Neurologic: no focal deficits, moves all extremities, other (Alert and oriented. Normal speech.) HEART Score - HEART Score Troponin: Troponin T 0.011 ng/mL (0.00-0.029) 05/19/21 06:50 Results - Labs CBC & Chem 7: 05/20/21 09:45 05/23/21 05:47 Labs: Laboratory Last Values WBC 9.8 K/mm3 (4.5-11.0) 05/20/21 09:45 WBC 9.8 K/mm3 (4.5-11.0) 05/20/21 09:45 RBC 2.78 M/mm3 (3.65-5.03) L 05/20/21 09:45 RBC 2.78 M/mm3 (3.65-5.03) L 05/20/21 09:45 Hgb 8.6 gm/dl (11.8-15.2) L 05/20/21 09:45 Hgb 8.6 gm/dl (11.8-15.2) L 05/20/21 09:45 Hct 26.4 % (35.5-45.6) L 05/20/21 09:45 Hct 26.4 % (35.5-45.6) L 05/20/21 09:45 MCV 95 fl (84-94) H 05/20/21 09:45 MCV 95 fl (84-94) H 05/20/21 09:45 MCH 31 pg (28-32) 05/20/21 09:45 MCH 31 pg (28-32) 05/20/21 09:45 MCHC 33 % (32-34) 05/20/21 09:45 MCHC 33 % (32-34) 05/20/21 09:45 RDW 14.9 % (13.2-15.2) 05/20/21 09:45 RDW 14.9 % (13.2-15.2) 05/20/21 09:45 Plt Count 377 K/mm3 (140-440) 05/20/21 09:45 Plt Count 377 K/mm3 (140-440) 05/20/21 09:45 Lymph % (Auto) Not Reportable 05/20/21 09:45 [place] % (Auto) Not Reportable 05/20/21 09:45 Eos % (Auto) Not Reportable 05/20/21 09:45 Baso % (Auto) Not Reportable 05/20/21 09:45 Lymph # (Auto) Not Reportable 05/20/21 09:45 [place] # (Auto) Not Reportable 05/20/21 09:45 Eos # (Auto) Not Reportable 05/20/21 09:45 Baso # (Auto) Not Reportable 05/20/21 09:45 Add Manual Diff Complete 05/20/21 09:45 Total Counted 100 05/20/21 09:45 Seg Neutrophils % [employer] 05/20/21 09:45 Seg Neuts % (Manual) 98.0 % (40.0-70.0) H 05/20/21 09:45 Band Neutrophils % 0 % 05/20/21 09:45 Lymphocytes % (Manual) 1.0 % (13.4-35.0) L 05/20/21 09:45 Reactive Lymphs % (Man) 0 % 05/20/21 09:45 Monocytes % (Manual) 1.0 % (0.0-7.3) 05/20/21 09:45 Eosinophils % (Manual) 0 % (0.0-4.3) 05/20/21 09:45 Basophils % (Manual) 0 % (0.0-1.8) 05/20/21 09:45 Metamyelocytes % 0 % 05/20/21 09:45 Myelocytes % 0 % 05/20/21 09:45 Promyelocytes % 0 % 05/20/21 09:45 Blast Cells % 0 % 05/20/21 09:45 Nucleated RBC % Not Reportable 05/20/21 09:45 Seg Neutrophils # Not Reportable 05/20/21 09:45 Seg Neutrophils # Man 9.6 K/mm3 (1.8-7.7) H 05/20/21 09:45 Band Neutrophils # 0.0 K/mm3 05/20/21 09:45 Abs Lymphs (Manual) 291 cells/uL (850-3900) L 05/10/21 17:09 Lymphocytes # (Manual) 0.1 K/mm3 (1.2-5.4) L 05/20/21 09:45 Abs React Lymphs (Man) 0.0 K/mm3 05/20/21 09:45 Monocytes # (Manual) 0.1 K/mm3 (0.0-0.8) 05/20/21 09:45 Eosinophils # (Manual) 0.0 K/mm3 (0.0-0.4) 05/20/21 09:45 Basophils # (Manual) 0.0 K/mm3 (0.0-0.1) 05/20/21 09:45 Metamyelocytes # 0.0 K/mm3 05/20/21 09:45 Myelocytes # 0.0 K/mm3 05/20/21 09:45 Promyelocytes # 0.0 K/mm3 05/20/21 09:45 Blast Cells # 0.0 K/mm3 05/20/21 09:45 WBC Morphology Not Reportable 05/20/21 09:45 Hypersegmented Neuts Rare 05/20/21 09:45 Hyposegmented Neuts Not Reportable 05/20/21 09:45 Hypogranular Neuts Not Reportable 05/20/21 09:45 Smudge Cells Not Reportable 05/20/21 09:45 Toxic Granulation 1+ 05/20/21 09:45 Toxic Vacuolation Not Reportable 05/20/21 09:45 Dohle Bodies Rare 05/20/21 09:45 Pelger-Huet Anomaly Not Reportable 05/20/21 09:45 Karishma Rods Not Reportable 05/20/21 09:45 Platelet Estimate Consistent w auto 05/20/21 09:45 Clumped Platelets Not Reportable 05/20/21 09:45 Plt Clumps, EDTA Not Reportable 05/20/21 09:45 Large Platelets Not Reportable 05/20/21 09:45 Giant Platelets Not Reportable 05/20/21 09:45 Platelet Satelliting Not Reportable 05/20/21 09:45 Plt Morphology Comment Not Reportable 05/20/21 09:45 RBC Morphology Not Reportable 05/20/21 09:45 Dimorphic RBCs Not Reportable 05/20/21 09:45 Polychromasia Not Reportable 05/20/21 09:45 Hypochromasia Not Reportable 05/20/21 09:45 Poikilocytosis Not Reportable 05/20/21 09:45 Anisocytosis 1+ 05/20/21 09:45 Microcytosis Not Reportable 05/20/21 09:45 Macrocytosis Not Reportable 05/20/21 09:45 Spherocytes Not Reportable 05/20/21 09:45 Pappenheimer Bodies Not Reportable 05/20/21 09:45 Sickle Cells Not Reportable 05/20/21 09:45 Target Cells Not Reportable 05/20/21 09:45 Tear Drop Cells Not Reportable 05/20/21 09:45 Ovalocytes Not Reportable 05/20/21 09:45 Helmet Cells Not Reportable 05/20/21 09:45 [place] Bodies Not Reportable 05/20/21 09:45 [place] Rings Not Reportable 05/20/21 09:45 [place] Cells Not Reportable 05/20/21 09:45 Bite Cells Not Reportable 05/20/21 09:45 Crenated Cell Not Reportable 05/20/21 09:45 Elliptocytes Not Reportable 05/20/21 09:45 Acanthocytes (Spur) Not Reportable 05/20/21 09:45 Rouleaux Not Reportable 05/20/21 09:45 Hemoglobin C Crystals Not Reportable 05/20/21 09:45 Schistocytes Not Reportable 05/20/21 09:45 Malaria parasites Not Reportable 05/20/21 09:45 Angus Bodies Not Reportable 05/20/21 09:45 Hem Pathologist Commnt No 05/20/21 09:45 D-Dimer 730.16 ng/mlDDU (0-234) H 05/10/21 09:45 Sodium 130 mmol/L (137-145) L 05/21/21 05:35 Potassium 3.9 mmol/L (3.6-5.0) D 05/21/21 05:35 Chloride 88.4 mmol/L (98-107) L 05/21/21 05:35 Carbon Dioxide 25 mmol/L (22-30) 05/21/21 05:35 Anion Gap 21 mmol/L 05/21/21 05:35 BUN 69 mg/dL (9-20) H 05/21/21 05:35 Creatinine 6.6 mg/dL (0.8-1.3) H 05/21/21 05:35 Estimated GFR 11 ml/min 05/21/21 05:35 BUN/Creatinine Ratio 10 % 05/21/21 05:35 Glucose 137 mg/dL (75-100) H 05/21/21 05:35 Lactic Acid 2.10 mmol/L (0.7-2.0) H* 05/11/21 09:53 Calcium 8.5 mg/dL (8.4-10.2) 05/21/21 05:35 Magnesium 2.30 mg/dL (1.7-2.3) 05/21/21 05:35 Ferritin 1426.0 ng/mL (30.0-300.0) H 05/10/21 09:45 Total Bilirubin 0.20 mg/dL (0.1-1.2) 05/20/21 09:45 AST 39 units/L (5-40) 05/20/21 09:45 ALT 35 units/L (7-56) 05/20/21 09:45 Alkaline Phosphatase 86 units/L (35-129) 05/20/21 09:45 Lactate Dehydrogenase 600 units/L (91-180) H 05/10/21 09:45 Lactate Dehydrogenase 623 units/L (91-180) H 05/10/21 09:45 Total Creatine Kinase 31 units/L (55-170) L 05/10/21 09:45 CK-MB (CK-2) < 1.0 ng/mL (0.0-4.0) 05/10/21 09:45 CK-MB (CK-2) Rel Index 3.2 (0-4) 05/10/21 09:45 Troponin T 0.011 ng/mL (0.00-0.029) 05/19/21 06:50 C-Reactive Protein 8.90 mg/dL (0.00-1.30) H 05/10/21 09:45 C-Reactive Protein 9.00 mg/dL (0.00-1.30) H 05/10/21 09:45 NT-Pro-B Natriuret Pep 4065 pg/mL (0-450) H 05/10/21 09:45 Total Protein 6.3 g/dL (6.3-8.2) 05/20/21 09:45 Albumin 2.6 g/dL (3.9-5) L 05/20/21 09:45 Albumin/Globulin Ratio 0.7 % 05/20/21 09:45 Procalcitonin 6.81 ng/mL (<0.15) 05/10/21 09:45 TSH 2.390 mlU/mL (0.270-4.200) 05/10/21 09:45 Free T4 0.94 ng/dL (0.76-1.46) 05/10/21 09:45 Urine Color Yellow (Yellow) 05/10/21 13:49 Urine Turbidity Clear (Clear) 05/10/21 13:49 Urine pH 8.0 (5.0-7.0) H 05/10/21 13:49 Ur Specific [place] 1.025 (1.003-1.030) 05/10/21 13:49 Urine Protein 100 mg/dl mg/dL (Negative) 05/10/21 13:49 Urine Glucose (UA) Negative mg/dL (Negative) 05/10/21 13:49 Urine Ketones Negative mg/dL (Negative) 05/10/21 13:49 Urine Blood Negative (Negative) 05/10/21 13:49 Urine Nitrite Negative (Negative) 05/10/21 13:49 Ur Reducing Substances Not Reportable 05/10/21 13:49 Urine Bilirubin Negative (Negative) 05/10/21 13:49 Urine Ictotest Not Reportable 05/10/21 13:49 Urine Urobilinogen 0.0 mg/dL (<2.0) 05/10/21 13:49 Ur Leukocyte Esterase Negative (Negative) 05/10/21 13:49 Urine WBC (Auto) 2.0 /HPF (0.0-6.0) 05/10/21 13:49 Urine RBC (Auto) < 1.0 /HPF (0.0-6.0) 05/10/21 13:49 U Epithel Cells (Auto) 1.0 /HPF (0-13.0) 05/10/21 13:49 Lymph Enumerat CD4/CD8 0.00 (0.86-5.00) L 05/10/21 17:09 % CD3 Cells 78 % (57-85) 05/10/21 17:09 Absolute CD3 Count 228 cells/uL (840-3060) L 05/10/21 17:09 % CD4 Cells 0 % (30-61) L 05/10/21 17:09 Absolute CD4 Count 0 cells/uL (490-1740) L 05/10/21 17:09 % CD8 Cells 78 % (12-42) H 05/10/21 17:09 Absolute CD8 Count 239 cells/uL (180-1170) 05/10/21 17:09 % CD19 Cells 1 % (6-29) L 05/10/21 17:09 Absolute CD19 Count 2 cells/uL (110-660) L 05/10/21 17:09 Coronavirus (PCR) Positive (Negative) A 05/11/21 09:00 Hepatitis A IgM Ab Non-reactive (NonReactive) 05/11/21 09:53 Hep Bs Antigen Non-reactive (Negative) 05/11/21 09:53 Hep B Core IgM Ab Non-reactive (NonReactive) 05/11/21 09:53 Hepatitis C Antibody Non-reactive (NonReactive) 05/11/21 09:53 HIV-1 RNA PCR copies/ml 15035 Copies/mL H 05/10/21 17:09 HIV-1 RNA (PCR) log 4.71 Log cps/mL H 05/10/21 17:09 HIV-1 Genotyping Detected H 05/11/21 09:53 Miscellaneous Test Flexitest 1 H 05/11/21 12:41 Krishnan/IV: Voiding Method Urinal Active Medications - Current Medications Current Medications: Generic Name Dose Route Start Last Admin Trade Name Freq PRN Reason Stop Dose Admin Acetaminophen 650 mg 05/10/21 11:26 05/20/21 09:00 Acetaminophen 325 Mg Tab PO 650 mg Q4H PRN Administration Pain MILD(1-3)/Fever >100.5/LANGLEY Albuterol 2.5 mg 05/10/21 11:26 05/21/21 08:28 Albuterol 2.5 Mg/3 Ml Nebu IH 2.5 mg Q4HRT PRN Administration Shortness Of Breath Alprazolam 0.25 mg 05/15/21 09:38 05/21/21 09:08 Alprazolam 0.25 Mg Tab PO 0.25 mg DAILY PRN Administration Anxiety Ascorbic Acid 500 mg 05/10/21 22:00 05/21/21 09:07 Ascorbic Acid 500 Mg Tab PO 500 mg BID SANTOS Administration Bumetanide 1 mg 05/20/21 22:00 05/21/21 10:00 Bumetanide 1 Mg/4 Ml Inj IV Not Given BID SANTOS Cholecalciferol 1,000 unit 05/21/21 12:00 05/21/21 17:10 Cholecalciferol (Vit D3) 1000 Unit (25 Mcg) Tab PO 1,000 unit QDAY SANTOS Administration Darunavir 800 mg 05/10/21 14:45 05/21/21 17:01 Darunavir 800 Mg Tab PO 800 mg QDAY SANTOS Administration Dolutegravir Sodium 50 mg 05/10/21 15:00 05/21/21 17:01 Dolutegravir 50 Mg Tab PO 50 mg QDAY SANTOS Administration Fluconazole 200 mg 05/19/21 19:00 05/21/21 17:00 Fluconazole 200 Mg Tab PO 06/08/21 10:01 200 mg QDAY SANTOS Administration Protocol Heparin Sodium (Porcine) 5,000 unit 05/10/21 22:00 05/21/21 10:00 Heparin 5,000 Unit/1 Ml Vial SUB-Q Not Given Q12HR SANTOS Sodium Chloride 100 mls @ 999 mls/hr 05/13/21 13:10 Nacl 0.9% IV TRENT PRN Hypotension Trimethoprim/Sulfamethoxazole 158.125 mls @ 105.417 mls/hr 05/20/21 16:00 05/21/21 16:59 130 mg/ Dextrose/ IV 105.417 mls/hr Miscellaneous Information Q8H SANTOS Administration Lamivudine 100 mg 05/10/21 15:00 05/21/21 17:00 Lamivudine 50 Mg/5 Ml Oral Liqd PO 100 mg DAILY SANTOS Administration Multivitamins/Minerals 1 each 05/11/21 10:00 05/21/21 09:07 Multivitamins,Ther W-Minerals Tab PO 1 each QDAY SANTOS Administration Ondansetron HCl 4 mg 05/10/21 11:26 05/20/21 12:16 Ondansetron 4 Mg/2 Ml Inj IV 4 mg Q8H PRN Administration Nausea And Vomiting Prednisone 30 mg 05/15/21 10:00 05/21/21 09:07 Prednisone 10 Mg Tab PO 30 mg QDAY SANTOS Administration Ritonavir 100 mg 05/10/21 15:00 05/21/21 17:00 Ritonavir 100 Mg Tab PO 100 mg QDAY SANTOS Administration Sodium Bicarbonate 1,300 mg 05/10/21 14:00 05/21/21 14:00 Sodium Bicarbonate 650 Mg Tab PO Not Given TID SANTOS Sodium Chloride 10 ml 05/10/21 22:00 05/21/21 09:07 Sodium Chloride 0.9% 10 Ml Flush Syringe IV 10 ml BID SANTOS Administration Sodium Chloride 10 ml 05/10/21 11:26 Sodium Chloride 0.9% 10 Ml Flush Syringe IV PRN PRN LINE FLUSH Zinc Sulfate 220 mg 05/10/21 22:00 05/21/21 09:07 Zinc Sulfate 220 Mg Cap PO 220 mg BID SANTOS Administration Nutrition/Malnutrition Assess - Dietary Evaluation Nutrition/Malnutrition Findings: Nutrition Notes Start: 05/11/21 12:44 Freq: Status: Active Protocol: Document 05/21/21 17:00 DALY (Rec: 05/21/21 17:33 DALY [id number]) Nutrition Notes Initial or Follow up Reassessment Current Diagnosis Acute Kidney Injury,CKD (stage V CKD),Sepsis,Respiratory Failure,Malnutrition Other Pertinent Diagnosis COVID-19/Pneumonia, BILLIE/CKD/ ESRD+HD, HIV/Nephropathy/AIDS, Esophagitis ... Current Diet Renal Diet (since D 05/14), D Suppl (since D 05/14). Labs/Tests 05/21: Na 130, Cl 88.4, BUN 69 , Crea 6.6, Glu 137. Pertinent Medications 05/21: nutritionally unremarkable. Height 6 ft 2 in Weight 55.3 kg [place] Body Weight (kg) 86.36 BMI 15.6 Weight change and time frame 0.5 Kg body weight loss in 1 week reported. Weight Status Underweight Subjective/Other Information RD consult for Dietary advancement, % intake of meals , and body weight change. Pt continues on Renal Diet and Nepro ONS TID, and receiving PBJ sandwichwes on each meal. Pt's PO intake of meals has been Poor (25%), according to ADL notes. 0.5 Kg body weight loss in 1 week reported. Percent of energy/protein needs met: Prescribed Renal Diet provides for energy/protein needs (2, 072 Kcal/77 g) during LOS; additionally, Dietary Supplements will compensate for possible poor or insufficient PO intake of meals with 1,275 Kcal and 57 g of protein. Burn Absent Trauma Absent GI Symptoms None Food Allergy No Skin Integrity/Comment Redness, Dryness. Current % PO Poor (25-49%) Minimum of two criteria Yes #1 Nutrition Diagnosis Underweight Diagnosis Progress(for reassessment Continues documentation) Is patient on ventilator? No Is Patient Ambulatory and/or Out of Bed Yes REE-([facility]-ambulatory/OOB) [ [id number] [id number]] Calculation Used for Recommendations [facility] Additional Notes Protein: >1.2 g/Kg; >67 g/day. Fluids: 1 ml/Kcal, or as per MD. Nutrition Intervention Change Diet Order: Continue Renal Diet and Pt's Preferred food items. Add Supplement/Snack (indicate name/kcal Continue 8 fl oz Nepro w/ /protein ) CARBSTEADY; TID. Provides kCal: 1,275 Provides Protein (gm) 57 Goal #1 Compensate, through dietary supplementation, for possible poor or insufficient PO intake of meals during LOS. Goal #2 Maintain body weight within +/ -3% of admission body weight during LOS. Follow-Up By: 05/28/21 Additional Comments Continue monitoring food tolerance, %PO intake of meals , and BM.
[2021-05-22] MEDS: WATER IV SCH ×4 (00:25→23:55)
[2021-05-22] MEDS: DEXTROSE 5% IV SCH ×4 (00:25→23:55)
[2021-05-22] MEDS: SMX IV SCH ×4 (00:25→23:55)
[2021-05-22] MEDS: TMP IV SCH ×4 (00:25→23:55)
[2021-05-22] MEDS: predniSONE 10 MG TAB PO SCH (09:00)
[2021-05-22] MEDS: SODIUM BICARBONATE 650 MG TAB PO SCH ×3 (09:45→20:55)
--- NOTE | 2021-05-22 09:56 | Progress Note ---
Assessment and Plan (1) Sepsis (2) Pneumonia (3) Malnutrition (4) Acute respiratory failure with hypoxia (5) COVID-19 (6) HIV (human immunodeficiency virus infection) (7) Progressive CKD likely ESRD kidney disease could be related to HIVAN Renal US showed CKD signs R&B of HD was discussed with patient who agreed and consented to HD. s/p TDC may 11, HD#1 may 11 s/p HD yesterday, no HD today, Eval for need daily CM consulted to place patient at OP dialysis unit. Renally dose medications Strict I&O's daily Obtain daily weights Continue to monitor renal function closely Subjective Date of service: 05/22/21 Principal diagnosis: ESRD Interval history: s/p HD yesterday. NAD. Objective - Exam Narrative Exam: General appearance: Present: mild distress, cachectic - EENT Eyes: Present: PERRL ENT: hearing intact, clear oral mucosa - Neck Neck: Present: supple, normal ROM - Respiratory Respiratory effort: labored Respiratory: bilateral: diminished, rhonchi - Cardiovascular Rhythm: other (Tachycardia) Heart Sounds: Present: S1 & S2. Absent: rub, click - Extremities Extremities: pulses symmetrical, No edema Peripheral Pulses: abnormal (Capillary refill greater than 3.5 seconds) - Abdominal General gastrointestinal: Present: soft, non-tender, non-distended, normal bowel sounds Male genitourinary: Present: normal - Integumentary Integumentary: Present: clear, dry, clammy, decreased turgor - Musculoskeletal Musculoskeletal: generalized weakness - Psychiatric Psychiatric: appropriate mood/affect, intact judgment & insight - Neurologic Neurologic: CNII-XII intact, no focal deficits, moves all extremities, no gait normal - Vital Signs Vital signs: Vital Signs - 12hr 05/21/21 05/21/21 05/22/21 22:00 22:20 05:01 Temperature 98.3 F 98.2 F Pulse Rate 135 H 122 H Respiratory 18 18 18 Rate Blood Pressure 151/90 165/110 O2 Sat by Pulse 96 92 96 Oximetry - Lab 05/20/21 09:45 05/21/21 05:35 Most recent lab results Calcium 8.5 mg/dL (8.4-10.2) 05/21/21 05:35 Magnesium 2.30 mg/dL (1.7-2.3) 05/21/21 05:35 Medications & Allergies - Medications Allergies/Adverse Reactions: Allergies No Known Allergies Allergy (Verified 04/20/21 08:43) Home Medications: Home Medications Medication Instructions Recorded Confirmed Last Taken Type Multivit-Min/Folic/Vit K/Lycop 1 tab PO QDAY 04/21/21 05/13/21 3 Days Ago History [Men's Multivitamin Tablet] ~04/18/21 Sodium Bicarbonate 1,300 mg PO TID #90 tablet 05/01/21 05/13/21 Unknown Rx Active Medications: Generic Name Dose Route Start Last Admin Trade Name Freq PRN Reason Stop Dose Admin Acetaminophen 650 mg 05/10/21 11:26 05/20/21 09:00 Acetaminophen 325 Mg Tab PO 650 mg Q4H PRN Administration Pain MILD(1-3)/Fever >100.5/LANG[place] Albuterol 2.5 mg 05/10/21 11:26 05/21/21 20:05 Albuterol 2.5 Mg/3 Ml Nebu IH 2.5 mg Q4HRT PRN Administration Shortness Of Breath Alprazolam 0.25 mg 05/15/21 09:38 05/21/21 09:08 Alprazolam 0.25 Mg Tab PO 0.25 mg DAILY PRN Administration Anxiety Ascorbic Acid 500 mg 05/10/21 22:00 05/21/21 21:23 Ascorbic Acid 500 Mg Tab PO 500 mg BID SANTOS Administration Bumetanide 1 mg 05/20/21 22:00 05/21/21 21:20 Bumetanide 1 Mg/4 Ml Inj IV 1 mg BID SANTOS Administration Cholecalciferol 1,000 unit 05/21/21 12:00 05/21/21 17:10 Cholecalciferol (Vit D3) 1000 Unit (25 Mcg) Tab PO 1,000 unit QDAY SANTOS Administration Darunavir 800 mg 05/10/21 14:45 05/21/21 17:01 Darunavir 800 Mg Tab PO 800 mg QDAY SANTOS Administration Dolutegravir Sodium 50 mg 05/10/21 15:00 05/21/21 17:01 Dolutegravir 50 Mg Tab PO 50 mg QDAY SANTOS Administration Fluconazole 200 mg 05/19/21 19:00 05/21/21 17:00 Fluconazole 200 Mg Tab PO 06/08/21 10:01 200 mg QDAY SANTOS Administration Protocol Heparin Sodium (Porcine) 5,000 unit 05/10/21 22:00 05/21/21 21:21 Heparin 5,000 Unit/1 Ml Vial SUB-Q 5,000 unit Q12HR SANTOS Administration Sodium Chloride 100 mls @ 999 mls/hr 05/13/21 13:10 Nacl 0.9% IV TRENT PRN Hypotension Trimethoprim/Sulfamethoxazole 158.125 mls @ 105.417 mls/hr 05/20/21 16:00 05/22/21 02:05 130 mg/ Dextrose/ IV Infused Miscellaneous Information Q8H SANTOS Infusion Lamivudine 100 mg 05/10/21 15:00 05/21/21 17:00 Lamivudine 50 Mg/5 Ml Oral Liqd PO 100 mg DAILY SANTOS Administration Metoprolol Succinate 25 mg 05/22/21 10:00 Metoprolol Succinate Xl 25 Mg Tab PO QDAY SANTOS Multivitamins/Minerals 1 each 05/11/21 10:00 05/21/21 09:07 Multivitamins,Ther W-Minerals Tab PO 1 each QDAY SANTOS Administration Ondansetron HCl 4 mg 05/10/21 11:26 05/20/21 12:16 Ondansetron 4 Mg/2 Ml Inj IV 4 mg Q8H PRN Administration Nausea And Vomiting Prednisone 30 mg 05/15/21 10:00 05/21/21 09:07 Prednisone 10 Mg Tab PO 30 mg QDAY SANTOS Administration Ritonavir 100 mg 05/10/21 15:00 05/21/21 17:00 Ritonavir 100 Mg Tab PO 100 mg QDAY SANTOS Administration Sodium Bicarbonate 1,300 mg 05/10/21 14:00 05/21/21 21:21 Sodium Bicarbonate 650 Mg Tab PO 1,300 mg TID SANTOS Administration Sodium Chloride 10 ml 05/10/21 22:00 05/21/21 21:22 Sodium Chloride 0.9% 10 Ml Flush Syringe IV 10 ml BID SANTOS Administration Sodium Chloride 10 ml 05/10/21 11:26 Sodium Chloride 0.9% 10 Ml Flush Syringe IV PRN PRN LINE FLUSH Zinc Sulfate 220 mg 05/10/21 22:00 05/21/21 21:24 Zinc Sulfate 220 Mg Cap PO 220 mg BID SANTOS Administration
[2021-05-22] MEDS: METOPROLOL SUCCINATE XL 25 MG TAB PO SCH (10:44)
[2021-05-22] MEDS: ALPRAZolam 0.25 MG TAB PO PRN (10:45)
[2021-05-22] MEDS: BUMETANIDE 1 MG/4 ML INJ IV SCH ×2 (10:46→22:17)
[2021-05-22] MEDS: lamiVUDine 50 MG/5 ML ORAL LIQD PO SCH (10:46)
[2021-05-22] MEDS: ASCORBIC ACID 500 MG TAB PO SCH ×2 (10:46→22:16)
[2021-05-22] MEDS: MULTIVITAMINS,THER W-MINERALS TAB PO SCH (10:46)
[2021-05-22] MEDS: CHOLECALCIFEROL (VIT D3) 1000 UNIT (25 mcg) TAB PO SCH (10:46)
[2021-05-22] MEDS: ZINC SULFATE 220 MG CAP PO SCH ×2 (10:46→22:16)
[2021-05-22] MEDS: HEPARIN 5,000 UNIT/1 ML VIAL SUB-Q SCH ×2 (10:47→22:17)
[2021-05-22] MEDS: FLUCONAZOLE 200 MG TAB PO SCH (10:48)
[2021-05-22] MEDS: DOLUTEGRAVIR 50 MG TAB PO SCH (10:48)
[2021-05-22] MEDS: DARUNAVIR 800 MG TAB PO SCH (10:48)
[2021-05-22] MEDS: RITONAVIR 100 MG TAB PO SCH (10:48)
--- NOTE | 2021-05-22 17:16 | Progress Note ---
Assessment and Plan Assessment and plan: 40-year-old male who was recently hospitalized and discharged earlier this month with a new diagnosis of HIV and suspected AIDS with associated renal dysfunction. Patient was also noted to have a diagnosis of COVID-19 pneumonia during that admission but not hypoxic at that time. Patient was recommended for outpatient follow-up with [facility] department. Patient is now readmitted with complaints of generalized weakness and worsening shortness of breath Assessment and plans: PJP pneumonia: On IV Bactrim, to be switched to oral at the time of discharge to complete 21-day course followed by chemoprophylaxis with half a tablet, 3 times a week after dialysis as per ID recommendations. Acute hypoxic respiratory failure. Etiology appears to be multifactorial including renal failure, volume overload and PCP pneumonia , improved/stable on 23 L O2 currently Pneumomediastinum and mild subcutaneous emphysema in the neck, newly noted on 05/18 with right IJ tunnel catheter in place, etiology appears to be related to PGP pneumonia/possible cyst rupture. Assessed by pulmonary in consultation on 05/19, needs no acute events and expected to be resolved by itself. Followed by Dr. Graves on 05/19. Sinus tachycardia, physiological response to pneumonia and hypoxia, stable HIV, suspected AIDS as patient is having PCP pneumonia. Noncompliance with ART, initiated ART given the patient's acute illness HIV associated nephropathy, BILLIE on CKD, HD initiated and nephrology recommends continuation of dialysis after discharge. Accelerated hypertension, resolved Hypotension since HD initiated, poorly tolerating HD initially but improving Leukocytosis on prednisone COVID-19. Patient initially tested + 04/24/2021 and 05/11/2021, was not a candidate for remdesivir. Severe anxiety: Improving Cachexia/malnutrition, dietary consulted Daily events: 05/11/2021. ID has been consulted and we will follow up HIV viral load, CD4 count and genotype. Follow-up LDH 1 3 beta D glucan. ID started Mepron to cover P MARTINEZ and avoiding Bactrim due to renal failure. We started steroids given the new hypoxia. ID also initiated ART with lamivudine, darunavir plus ritonavir and dolutegravir given the possibility of HIVAN. Consider pulmonary consultation. Nephrology following. Renal ultrasound shows signs of CKD. Nephrology to discuss hemodialysis initiation. Continue strict I's and O's daily and monitor renal function closely 05/12/2021. Patient is s/p placement of a right internal jugular tunneled cuffed hemodialysis catheter and initiation of hemodialysis on 05/11/2021. Patient is also undergo further hemodialysis today. CM consult to place patient at [facility] dialysis unit. We will follow up HIV viral load, CD4 count and genotype. Follow-up LDH 1 3 beta D glucan. ID started Mepron to cover P MARTINEZ and avoiding Bactrim due to renal failure. ID also initiated ART with lamivudine, darunavir plus ritonavir and dolutegravir given the possibility of HIVAN. Continue steroids given the hypoxia. Respiratory status has significantly improved after hemodialysis. I believe volume overload was the most significantly contributing factor/etiology. Follow-up serial chest x-ray. Patient currently with 2 L nasal cannula satting at 99% 05/13/2021. Continue hemodialysis per nephrology recommendations. Await outpatient arrangements for hemodialysis unit. We will follow up HIV viral load, CD4 count and genotype. Follow-up LDH 1 3 beta D glucan. ID started Mepron to cover P MARTINEZ and avoiding Bactrim due to renal failure. ID also initiated ART with lamivudine, darunavir plus ritonavir and dolutegravir given the possibility of HIVAN. Continue steroids given the hypoxia and change from Solu-Medrol IV to dexamethasone. Procalcitonin level was elevated at 6. We will continue IV antibiotics per ID recommendations 05/14/2021. Continue hemodialysis per nephrology recommendations. Await outpatient arrangements for hemodialysis unit. We will follow up HIV viral load, CD4 count and genotype. Follow-up LDH 1 3 beta D glucan. ID started Mepron to cover P MARTINEZ and avoiding Bactrim due to renal failure. ID also initiated ART with lamivudine, darunavir plus ritonavir and dolutegravir given the possibility of HIVAN. Continue dexamethasone. Patient to follow-up with health department in early May. Case management follow-up with regards to home ART before follow-up with the health department 05/15/2021. Continue hemodialysis per nephrology recommendations. Await outpatient arrangements for hemodialysis unit. Patient wants anxiety medication prior to dialysis. We will start Xanax 0.25 mg as needed. Continue lamivudine, darunavir plus ritonavir and dolutegravir given the possibility of HIVAN. Continue dexamethasone. Patient to follow-up with health department in early May. Case management follow-up with regards to home ART before follow-up with the health department 05/16/2021. Continue hemodialysis per nephrology recommendations. Await outpatient arrangements for hemodialysis unit. Renal US showed CKD signs. Strict I&O's daily. Obtain daily weights. Continue Xanax prior to hemodialysis for anxiety. Continue lamivudine, darunavir plus ritonavir and dolutegravir given the possibility of HIVAN. Continue dexamethasone. Patient to follow-up with health department in early May. Patient with elevated diastolic BP greater than 100. We will start Procardia 30 mg twice daily. 05/17/2021. Patient to be initiated on MWF hemodialysis schedule. Patient requesting Xanax for, better prior to hemodialysis session. Await outpatient arrangements for hemodialysis unit per case management. Renal ultrasound revealed signs of chronic kidney disease. Continue strict I&O's daily. Obtain daily weights. Continue lamivudine, darunavir plus ritonavir and dolutegravir given the possibility of HIVAN. Continue dexamethasone. Patient to follow-up with health department in early May. Patient's BP much better controlled with the addition of Procardia. 05/18: Hemodialysis was discontinued yesterday after 1 hour if patient request as he was feeling weak with hypotension. BP remains low to 80s. Given NS bolus management this morning. Procardia discontinued. Bumex is on hold. Excellent urine. Still feeling weak. Remains anxious. Asking to be sedated during dialy sis. CXR ordered daily Dr. Graves shows mild localized subcutaneous emphysema and right-sided neck pain currently dialysis catheter is placed. A CT chest showed diabetes mellitus with emphysema-like cough. Vascular surgery is addressing this. Sinus tachycardia stable. On room air without acute respite distress at rest. Discussed with the patient, nursing staff and vascular surgery. 05/19:Patient is feeling much better after undergoing hemodialysis for 3 hours today.Breathing much better. Mild subcutis emphysema in the right supraclavicular fossa seems stable. This is assisted by pulmonary in consultation and reevaluation by today. No acute intervention required, expected to resolve by itself. Looks more comfortable and less anxious. Remains on 3 L of O2. 05/20: No acute events. Remains on 3 L O2. Pneumomediastinum and subcutaneous emphysema stable. Bactrim changed from p.o. to IV. Sinus tach worse today and received Lopressor IV x1 dose. Discussed with ID. 05/21: No acute events, stable, awaiting outpatient dialysis arrangements for discharge. 05/22: Chronic anxiety, better. Since tachycardia stable. Remains on 2 to 3 days of O2. Stable for discharge pending outpatient dialysis arrangements. Discussed with CM. History Interval history: Patient remains stable on 2 to 3 L O2. Afebrile. Sinus tachycardia stable. Anxiety better. Hospitalist Physical - Constitutional Vitals: Temp Pulse Resp BP Pulse Ox 97.8 F 120 H 16 138/99 97 05/22/21 11:08 05/22/21 11:08 05/22/21 11:08 05/22/21 11:08 05/22/21 10:00 General appearance: Present: no acute distress, cachectic, disheveled, other (Anxious) - EENT Eyes: Present: PERRL, EOM intact ENT: hearing intact, clear oral mucosa - Neck Neck: Present: other (Mild subcutaneous edema in right supraclavicular fossa) - Respiratory Respiratory effort: normal Respiratory: bilateral: diminished, rales - Cardiovascular Rhythm: other (Sinus tachycardia, stable) - Extremities Extremities: No edema - Abdominal General gastrointestinal: soft, non-distended - Integumentary Integumentary: Absent: rash - Psychiatric Psychiatric: other (Anxiety better) - Neurologic Neurologic: moves all extremities, other (Alert active oriented, normal speech) HEART Score - HEART Score Troponin: Troponin T 0.011 ng/mL (0.00-0.029) 05/19/21 06:50 Results - Labs CBC & Chem 7: 05/20/21 09:45 05/23/21 05:47 Labs: Laboratory Last Values WBC 9.8 K/mm3 (4.5-11.0) 05/20/21 09:45 WBC 9.8 K/mm3 (4.5-11.0) 05/20/21 09:45 RBC 2.78 M/mm3 (3.65-5.03) L 05/20/21 09:45 RBC 2.78 M/mm3 (3.65-5.03) L 05/20/21 09:45 Hgb 8.6 gm/dl (11.8-15.2) L 05/20/21 09:45 Hgb 8.6 gm/dl (11.8-15.2) L 05/20/21 09:45 Hct 26.4 % (35.5-45.6) L 05/20/21 09:45 Hct 26.4 % (35.5-45.6) L 05/20/21 09:45 MCV 95 fl (84-94) H 05/20/21 09:45 MCV 95 fl (84-94) H 05/20/21 09:45 MCH 31 pg (28-32) 05/20/21 09:45 MCH 31 pg (28-32) 05/20/21 09:45 MCHC 33 % (32-34) 05/20/21 09:45 MCHC 33 % (32-34) 05/20/21 09:45 RDW 14.9 % (13.2-15.2) 05/20/21 09:45 RDW 14.9 % (13.2-15.2) 05/20/21 09:45 Plt Count 377 K/mm3 (140-440) 05/20/21 09:45 Plt Count 377 K/mm3 (140-440) 05/20/21 09:45 Lymph % (Auto) Not Reportable 05/20/21 09:45 [place] % (Auto) Not Reportable 05/20/21 09:45 Eos % (Auto) Not Reportable 05/20/21 09:45 Baso % (Auto) Not Reportable 05/20/21 09:45 Lymph # (Auto) Not Reportable 05/20/21 09:45 [place] # (Auto) Not Reportable 05/20/21 09:45 Eos # (Auto) Not Reportable 05/20/21 09:45 Baso # (Auto) Not Reportable 05/20/21 09:45 Add Manual Diff Complete 05/20/21 09:45 Total Counted 100 05/20/21 09:45 Seg Neutrophils % Process Helper 05/20/21 09:45 Seg Neuts % (Manual) 98.0 % (40.0-70.0) H 05/20/21 09:45 Band Neutrophils % 0 % 05/20/21 09:45 Lymphocytes % (Manual) 1.0 % (13.4-35.0) L 05/20/21 09:45 Reactive Lymphs % (Man) 0 % 05/20/21 09:45 Monocytes % (Manual) 1.0 % (0.0-7.3) 05/20/21 09:45 Eosinophils % (Manual) 0 % (0.0-4.3) 05/20/21 09:45 Basophils % (Manual) 0 % (0.0-1.8) 05/20/21 09:45 Metamyelocytes % 0 % 05/20/21 09:45 Myelocytes % 0 % 05/20/21 09:45 Promyelocytes % 0 % 05/20/21 09:45 Blast Cells % 0 % 05/20/21 09:45 Nucleated RBC % Not Reportable 05/20/21 09:45 Seg Neutrophils # Not Reportable 05/20/21 09:45 Seg Neutrophils # Man 9.6 K/mm3 (1.8-7.7) H 05/20/21 09:45 Band Neutrophils # 0.0 K/mm3 05/20/21 09:45 Abs Lymphs (Manual) 291 cells/uL (850-3900) L 05/10/21 17:09 Lymphocytes # (Manual) 0.1 K/mm3 (1.2-5.4) L 05/20/21 09:45 Abs React Lymphs (Man) 0.0 K/mm3 05/20/21 09:45 Monocytes # (Manual) 0.1 K/mm3 (0.0-0.8) 05/20/21 09:45 Eosinophils # (Manual) 0.0 K/mm3 (0.0-0.4) 05/20/21 09:45 Basophils # (Manual) 0.0 K/mm3 (0.0-0.1) 05/20/21 09:45 Metamyelocytes # 0.0 K/mm3 05/20/21 09:45 Myelocytes # 0.0 K/mm3 05/20/21 09:45 Promyelocytes # 0.0 K/mm3 05/20/21 09:45 Blast Cells # 0.0 K/mm3 05/20/21 09:45 WBC Morphology Not Reportable 05/20/21 09:45 Hypersegmented Neuts Rare 05/20/21 09:45 Hyposegmented Neuts Not Reportable 05/20/21 09:45 Hypogranular Neuts Not Reportable 05/20/21 09:45 Smudge Cells Not Reportable 05/20/21 09:45 Toxic Granulation 1+ 05/20/21 09:45 Toxic Vacuolation Not Reportable 05/20/21 09:45 Dohle Bodies Rare 05/20/21 09:45 Pelger-Huet Anomaly Not Reportable 05/20/21 09:45 Karishma Rods Not Reportable 05/20/21 09:45 Platelet Estimate Consistent w auto 05/20/21 09:45 Clumped Platelets Not Reportable 05/20/21 09:45 Plt Clumps, EDTA Not Reportable 05/20/21 09:45 Large Platelets Not Reportable 05/20/21 09:45 Giant Platelets Not Reportable 05/20/21 09:45 Platelet Satelliting Not Reportable 05/20/21 09:45 Plt Morphology Comment Not Reportable 05/20/21 09:45 RBC Morphology Not Reportable 05/20/21 09:45 Dimorphic RBCs Not Reportable 05/20/21 09:45 Polychromasia Not Reportable 05/20/21 09:45 Hypochromasia Not Reportable 05/20/21 09:45 Poikilocytosis Not Reportable 05/20/21 09:45 Anisocytosis 1+ 05/20/21 09:45 Microcytosis Not Reportable 05/20/21 09:45 Macrocytosis Not Reportable 05/20/21 09:45 Spherocytes Not Reportable 05/20/21 09:45 Pappenheimer Bodies Not Reportable 05/20/21 09:45 Sickle Cells Not Reportable 05/20/21 09:45 Target Cells Not Reportable 05/20/21 09:45 Tear Drop Cells Not Reportable 05/20/21 09:45 Ovalocytes Not Reportable 05/20/21 09:45 Helmet Cells Not Reportable 05/20/21 09:45 [place] Bodies Not Reportable 05/20/21 09:45 [place] Rings Not Reportable 05/20/21 09:45 [place] Cells Not Reportable 05/20/21 09:45 Bite Cells Not Reportable 05/20/21 09:45 Crenated Cell Not Reportable 05/20/21 09:45 Elliptocytes Not Reportable 05/20/21 09:45 Acanthocytes (Spur) Not Reportable 05/20/21 09:45 Rouleaux Not Reportable 05/20/21 09:45 Hemoglobin C Crystals Not Reportable 05/20/21 09:45 Schistocytes Not Reportable 05/20/21 09:45 Malaria parasites Not Reportable 05/20/21 09:45 Angus Bodies Not Reportable 05/20/21 09:45 Hem Pathologist Commnt No 05/20/21 09:45 D-Dimer 730.16 ng/mlDDU (0-234) H 05/10/21 09:45 Sodium 130 mmol/L (137-145) L 05/21/21 05:35 Potassium 3.9 mmol/L (3.6-5.0) D 05/21/21 05:35 Chloride 88.4 mmol/L (98-107) L 05/21/21 05:35 Carbon Dioxide 25 mmol/L (22-30) 05/21/21 05:35 Anion Gap 21 mmol/L 05/21/21 05:35 BUN 69 mg/dL (9-20) H 05/21/21 05:35 Creatinine 6.6 mg/dL (0.8-1.3) H 05/21/21 05:35 Estimated GFR 11 ml/min 05/21/21 05:35 BUN/Creatinine Ratio 10 % 05/21/21 05:35 Glucose 137 mg/dL (75-100) H 05/21/21 05:35 Lactic Acid 2.10 mmol/L (0.7-2.0) H* 05/11/21 09:53 Calcium 8.5 mg/dL (8.4-10.2) 05/21/21 05:35 Magnesium 2.30 mg/dL (1.7-2.3) 05/21/21 05:35 Ferritin 1426.0 ng/mL (30.0-300.0) H 05/10/21 09:45 Total Bilirubin 0.20 mg/dL (0.1-1.2) 05/20/21 09:45 AST 39 units/L (5-40) 05/20/21 09:45 ALT 35 units/L (7-56) 05/20/21 09:45 Alkaline Phosphatase 86 units/L (35-129) 05/20/21 09:45 Lactate Dehydrogenase 600 units/L (91-180) H 05/10/21 09:45 Lactate Dehydrogenase 623 units/L (91-180) H 05/10/21 09:45 Total Creatine Kinase 31 units/L (55-170) L 05/10/21 09:45 CK-MB (CK-2) < 1.0 ng/mL (0.0-4.0) 05/10/21 09:45 CK-MB (CK-2) Rel Index 3.2 (0-4) 05/10/21 09:45 Troponin T 0.011 ng/mL (0.00-0.029) 05/19/21 06:50 C-Reactive Protein 8.90 mg/dL (0.00-1.30) H 05/10/21 09:45 C-Reactive Protein 9.00 mg/dL (0.00-1.30) H 05/10/21 09:45 NT-Pro-B Natriuret Pep 4065 pg/mL (0-450) H 05/10/21 09:45 Total Protein 6.3 g/dL (6.3-8.2) 05/20/21 09:45 Albumin 2.6 g/dL (3.9-5) L 05/20/21 09:45 Albumin/Globulin Ratio 0.7 % 05/20/21 09:45 Procalcitonin 6.81 ng/mL (<0.15) 05/10/21 09:45 TSH 2.390 mlU/mL (0.270-4.200) 05/10/21 09:45 Free T4 0.94 ng/dL (0.76-1.46) 05/10/21 09:45 Urine Color Yellow (Yellow) 05/10/21 13:49 Urine Turbidity Clear (Clear) 05/10/21 13:49 Urine pH 8.0 (5.0-7.0) H 05/10/21 13:49 Ur Specific [place] 1.025 (1.003-1.030) 05/10/21 13:49 Urine Protein 100 mg/dl mg/dL (Negative) 05/10/21 13:49 Urine Glucose (UA) Negative mg/dL (Negative) 05/10/21 13:49 Urine Ketones Negative mg/dL (Negative) 05/10/21 13:49 Urine Blood Negative (Negative) 05/10/21 13:49 Urine Nitrite Negative (Negative) 05/10/21 13:49 Ur Reducing Substances Not Reportable 05/10/21 13:49 Urine Bilirubin Negative (Negative) 05/10/21 13:49 Urine Ictotest Not Reportable 05/10/21 13:49 Urine Urobilinogen 0.0 mg/dL (<2.0) 05/10/21 13:49 Ur Leukocyte Esterase Negative (Negative) 05/10/21 13:49 Urine WBC (Auto) 2.0 /HPF (0.0-6.0) 05/10/21 13:49 Urine RBC (Auto) < 1.0 /HPF (0.0-6.0) 05/10/21 13:49 U Epithel Cells (Auto) 1.0 /HPF (0-13.0) 05/10/21 13:49 Lymph Enumerat CD4/CD8 0.00 (0.86-5.00) L 05/10/21 17:09 % CD3 Cells 78 % (57-85) 05/10/21 17:09 Absolute CD3 Count 228 cells/uL (840-3060) L 05/10/21 17:09 % CD4 Cells 0 % (30-61) L 05/10/21 17:09 Absolute CD4 Count 0 cells/uL (490-1740) L 05/10/21 17:09 % CD8 Cells 78 % (12-42) H 05/10/21 17:09 Absolute CD8 Count 239 cells/uL (180-1170) 05/10/21 17:09 % CD19 Cells 1 % (6-29) L 05/10/21 17:09 Absolute CD19 Count 2 cells/uL (110-660) L 05/10/21 17:09 Coronavirus (PCR) Positive (Negative) A 05/11/21 09:00 Hepatitis A IgM Ab Non-reactive (NonReactive) 05/11/21 09:53 Hep Bs Antigen Non-reactive (Negative) 05/11/21 09:53 Hep B Core IgM Ab Non-reactive (NonReactive) 05/11/21 09:53 Hepatitis C Antibody Non-reactive (NonReactive) 05/11/21 09:53 HIV-1 RNA PCR copies/ml 07108 Copies/mL H 05/10/21 17:09 HIV-1 RNA (PCR) log 4.71 Log cps/mL H 05/10/21 17:09 HIV-1 Genotyping Detected H 05/11/21 09:53 Miscellaneous Test Flexitest 1 H 05/11/21 12:41 Krishnan/IV: Voiding Method Urinal Active Medications - Current Medications Current Medications: Generic Name Dose Route Start Last Admin Trade Name Freq PRN Reason Stop Dose Admin Acetaminophen 650 mg 05/10/21 11:26 05/20/21 09:00 Acetaminophen 325 Mg Tab PO 650 mg Q4H PRN Administration Pain MILD(1-3)/Fever >100.5/LANGLEY Albuterol 2.5 mg 05/10/21 11:26 05/21/21 20:05 Albuterol 2.5 Mg/3 Ml Nebu IH 2.5 mg Q4HRT PRN Administration Shortness Of Breath Alprazolam 0.25 mg 05/15/21 09:38 05/22/21 10:45 Alprazolam 0.25 Mg Tab PO 0.25 mg DAILY PRN Administration Anxiety Ascorbic Acid 500 mg 05/10/21 22:00 05/22/21 10:46 Ascorbic Acid 500 Mg Tab PO 500 mg BID SANTOS Administration Bumetanide 1 mg 05/20/21 22:00 05/22/21 10:46 Bumetanide 1 Mg/4 Ml Inj IV 1 mg BID SANTOS Administration Cholecalciferol 1,000 unit 05/21/21 12:00 05/22/21 10:46 Cholecalciferol (Vit D3) 1000 Unit (25 Mcg) Tab PO 1,000 unit QDAY SANTOS Administration Darunavir 800 mg 05/10/21 14:45 05/22/21 10:48 Darunavir 800 Mg Tab PO 800 mg QDAY SANTOS Administration Dolutegravir Sodium 50 mg 05/10/21 15:00 05/22/21 10:48 Dolutegravir 50 Mg Tab PO 50 mg QDAY SANTOS Administration Fluconazole 200 mg 05/19/21 19:00 05/22/21 10:48 Fluconazole 200 Mg Tab PO 06/08/21 10:01 200 mg QDAY SANTOS Administration Protocol Heparin Sodium (Porcine) 5,000 unit 05/10/21 22:00 05/22/21 10:47 Heparin 5,000 Unit/1 Ml Vial SUB-Q 5,000 unit Q12HR SANTOS Administration Sodium Chloride 100 mls @ 999 mls/hr 05/13/21 13:10 Nacl 0.9% IV TRENT PRN Hypotension Trimethoprim/Sulfamethoxazole 158.125 mls @ 105.417 mls/hr 05/20/21 16:00 05/22/21 17:13 130 mg/ Dextrose/ IV 105.417 mls/hr Miscellaneous Information Q8H SANTOS Administration Lamivudine 100 mg 05/10/21 15:00 05/22/21 10:46 Lamivudine 50 Mg/5 Ml Oral Liqd PO 100 mg DAILY SANTOS Administration Metoprolol Succinate 25 mg 05/22/21 11:00 05/22/21 10:44 Metoprolol Succinate Xl 25 Mg Tab PO 25 mg QDAY SANTOS Administration Multivitamins/Minerals 1 each 05/11/21 10:00 05/22/21 10:46 Multivitamins,Ther W-Minerals Tab PO 1 each QDAY SANTOS Administration Ondansetron HCl 4 mg 05/10/21 11:26 05/20/21 12:16 Ondansetron 4 Mg/2 Ml Inj IV 4 mg Q8H PRN Administration Nausea And Vomiting Prednisone 30 mg 05/15/21 10:00 05/22/21 09:00 Prednisone 10 Mg Tab PO 30 mg QDAY SANTOS Administration Ritonavir 100 mg 05/10/21 15:00 05/22/21 10:48 Ritonavir 100 Mg Tab PO 100 mg QDAY SANTOS Administration Sodium Bicarbonate 1,300 mg 05/10/21 14:00 05/22/21 15:00 Sodium Bicarbonate 650 Mg Tab PO 1,300 mg TID SANTOS Administration Sodium Chloride 10 ml 05/10/21 22:00 05/22/21 10:48 Sodium Chloride 0.9% 10 Ml Flush Syringe IV 10 ml BID SANTOS Administration Sodium Chloride 10 ml 05/10/21 11:26 Sodium Chloride 0.9% 10 Ml Flush Syringe IV PRN PRN LINE FLUSH Zinc Sulfate 220 mg 05/10/21 22:00 05/22/21 10:46 Zinc Sulfate 220 Mg Cap PO 220 mg BID SANTOS Administration Nutrition/Malnutrition Assess - Dietary Evaluation Nutrition/Malnutrition Findings: Nutrition Notes Start: 05/11/21 12:44 Freq: Status: Active Protocol: Document 05/21/21 17:00 DALY (Rec: 05/21/21 17:33 DALY [id number]) Nutrition Notes Initial or Follow up Reassessment Current Diagnosis Acute Kidney Injury,CKD (stage V CKD),Sepsis,Respiratory Failure,Malnutrition Other Pertinent Diagnosis COVID-19/Pneumonia, BILLIE/CKD/ ESRD+HD, HIV/Nephropathy/AIDS, Esophagitis ... Current Diet Renal Diet (since D 05/14), D Suppl (since D 05/14). Labs/Tests 05/21: Na 130, Cl 88.4, BUN 69 , Crea 6.6, Glu 137. Pertinent Medications 05/21: nutritionally unremarkable. Height 6 ft 2 in Weight 55.3 kg [place] Body Weight (kg) 86.36 BMI 15.6 Weight change and time frame 0.5 Kg body weight loss in 1 week reported. Weight Status Underweight Subjective/Other Information RD consult for Dietary advancement, % intake of meals , and body weight change. Pt continues on Renal Diet and Nepro ONS TID, and receiving PBJ sandwichwes on each meal. Pt's PO intake of meals has been Poor (25%), according to ADL notes. 0.5 Kg body weight loss in 1 week reported. Percent of energy/protein needs met: Prescribed Renal Diet provides for energy/protein needs (2, 072 Kcal/77 g) during LOS; additionally, Dietary Supplements will compensate for possible poor or insufficient PO intake of meals with 1,275 Kcal and 57 g of protein. Burn Absent Trauma Absent GI Symptoms None Food Allergy No Skin Integrity/Comment Redness, Dryness. Current % PO Poor (25-49%) Minimum of two criteria Yes #1 Nutrition Diagnosis Underweight Diagnosis Progress(for reassessment Continues documentation) Is patient on ventilator? No Is Patient Ambulatory and/or Out of Bed Yes REE-([facility]-ambulatory/OOB) [ [id number] [id number]] Calculation Used for Recommendations [facility] Additional Notes Protein: >1.2 g/Kg; >67 g/day. Fluids: 1 ml/Kcal, or as per MD. Nutrition Intervention Change Diet Order: Continue Renal Diet and Pt's Preferred food items. Add Supplement/Snack (indicate name/kcal Continue 8 fl oz Nepro w/ /protein ) CARBSTEADY; TID. Provides kCal: 1,275 Provides Protein (gm) 57 Goal #1 Compensate, through dietary supplementation, for possible poor or insufficient PO intake of meals during LOS. Goal #2 Maintain body weight within +/ -3% of admission body weight during LOS. Follow-Up By: 05/28/21 Additional Comments Continue monitoring food tolerance, %PO intake of meals , and BM.
[2021-05-22 20:08] LABS: Calcium 8.6 mg/dL (8.4-10.2)
[2021-05-22] MEDS: ZOLPIDEM 5 MG TAB PO PRN (22:17)
[2021-05-23 06:51] LABS: Calcium 8.4 mg/dL (8.4-10.2)
[2021-05-23] MEDS: SODIUM BICARBONATE 650 MG TAB PO SCH ×3 (09:10→20:28)
[2021-05-23] MEDS: TMP IV SCH ×2 (09:10→16:00)
[2021-05-23] MEDS: WATER IV SCH ×2 (09:10→16:00)
[2021-05-23] MEDS: SMX IV SCH ×2 (09:10→16:00)
[2021-05-23] MEDS: DEXTROSE 5% IV SCH ×2 (09:10→16:00)
--- NOTE | 2021-05-23 10:17 | Progress Note ---
Assessment and Plan (1) Sepsis (2) Pneumonia (3) Malnutrition (4) Acute respiratory failure with hypoxia (5) COVID-19 (6) HIV (human immunodeficiency virus infection) (7) Progressive CKD likely ESRD kidney disease could be related to HIVAN Renal US showed CKD signs R&B of HD was discussed with patient who agreed and consented to HD. s/p TDC may 11, HD#1 may 11 s/p HD Monday, no HD today, Eval for need daily CM consulted to place patient at OP dialysis unit. Renally dose medications Strict I&O's daily Obtain daily weights Continue to monitor renal function closely Subjective Date of service: 05/23/21 Principal diagnosis: ESRD Interval history: s/p HD monday. NAD. Objective - Exam Narrative Exam: General appearance: Present: mild distress, cachectic - EENT Eyes: Present: PERRL ENT: hearing intact, clear oral mucosa - Neck Neck: Present: supple, normal ROM - Respiratory Respiratory effort: labored Respiratory: bilateral: diminished, rhonchi - Cardiovascular Rhythm: other (Tachycardia) Heart Sounds: Present: S1 & S2. Absent: rub, click - Extremities Extremities: pulses symmetrical, No edema Peripheral Pulses: abnormal (Capillary refill greater than 3.5 seconds) - Abdominal General gastrointestinal: Present: soft, non-tender, non-distended, normal bowel sounds Male genitourinary: Present: normal - Integumentary Integumentary: Present: clear, dry, clammy, decreased turgor - Musculoskeletal Musculoskeletal: generalized weakness - Psychiatric Psychiatric: appropriate mood/affect, intact judgment & insight - Neurologic Neurologic: CNII-XII intact, no focal deficits, moves all extremities, no gait normal - Vital Signs Vital signs: Vital Signs - 12hr 05/23/21 05:19 Temperature 98.1 F Pulse Rate 123 H Respiratory 20 Rate Blood Pressure 152/97 O2 Sat by Pulse 95 Oximetry - Lab 05/20/21 09:45 05/23/21 05:47 Most recent lab results Calcium 8.4 mg/dL (8.4-10.2) 05/23/21 05:47 Magnesium 2.30 mg/dL (1.7-2.3) 05/21/21 05:35 Medications & Allergies - Medications Allergies/Adverse Reactions: Allergies No Known Allergies Allergy (Verified 04/20/21 08:43) Home Medications: Home Medications Medication Instructions Recorded Confirmed Last Taken Type Multivit-Min/Folic/Vit K/Lycop 1 tab PO QDAY 04/21/21 05/13/21 3 Days Ago History [Men's Multivitamin Tablet] ~04/18/21 Sodium Bicarbonate 1,300 mg PO TID #90 tablet 05/01/21 05/13/21 Unknown Rx Active Medications: Generic Name Dose Route Start Last Admin Trade Name Freq PRN Reason Stop Dose Admin Acetaminophen 650 mg 05/10/21 11:26 05/20/21 09:00 Acetaminophen 325 Mg Tab PO 650 mg Q4H PRN Administration Pain MILD(1-3)/Fever >100.5/LANG[place] Albuterol 2.5 mg 05/10/21 11:26 05/21/21 20:05 Albuterol 2.5 Mg/3 Ml Nebu IH 2.5 mg Q4HRT PRN Administration Shortness Of Breath Alprazolam 0.25 mg 05/15/21 09:38 05/22/21 10:45 Alprazolam 0.25 Mg Tab PO 0.25 mg DAILY PRN Administration Anxiety Ascorbic Acid 500 mg 05/10/21 22:00 05/22/21 22:16 Ascorbic Acid 500 Mg Tab PO 500 mg BID SANTOS Administration Bumetanide 1 mg 05/20/21 22:00 05/22/21 22:17 Bumetanide 1 Mg/4 Ml Inj IV 1 mg BID SANTOS Administration Cholecalciferol 1,000 unit 05/21/21 12:00 05/22/21 10:46 Cholecalciferol (Vit D3) 1000 Unit (25 Mcg) Tab PO 1,000 unit QDAY SANTOS Administration Darunavir 800 mg 05/10/21 14:45 05/22/21 10:48 Darunavir 800 Mg Tab PO 800 mg QDAY SANTOS Administration Dolutegravir Sodium 50 mg 05/10/21 15:00 05/22/21 10:48 Dolutegravir 50 Mg Tab PO 50 mg QDAY SANTOS Administration Fluconazole 200 mg 05/19/21 19:00 05/22/21 10:48 Fluconazole 200 Mg Tab PO 06/08/21 10:01 200 mg QDAY SANTOS Administration Protocol Heparin Sodium (Porcine) 5,000 unit 05/10/21 22:00 05/22/21 22:17 Heparin 5,000 Unit/1 Ml Vial SUB-Q 5,000 unit Q12HR SANTOS Administration Sodium Chloride 100 mls @ 999 mls/hr 05/13/21 13:10 Nacl 0.9% IV TRENT PRN Hypotension Trimethoprim/Sulfamethoxazole 158.125 mls @ 105.417 mls/hr 05/20/21 16:00 05/22/21 23:55 130 mg/ Dextrose/ IV 105.417 mls/hr Miscellaneous Information Q8H SANTOS Administration Lamivudine 100 mg 05/10/21 15:00 05/22/21 10:46 Lamivudine 50 Mg/5 Ml Oral Liqd PO 100 mg DAILY SANTOS Administration Metoprolol Succinate 25 mg 05/22/21 11:00 05/22/21 10:44 Metoprolol Succinate Xl 25 Mg Tab PO 25 mg QDAY SANTOS Administration Multivitamins/Minerals 1 each 05/11/21 10:00 05/22/21 10:46 Multivitamins,Ther W-Minerals Tab PO 1 each QDAY SANTOS Administration Ondansetron HCl 4 mg 05/10/21 11:26 05/20/21 12:16 Ondansetron 4 Mg/2 Ml Inj IV 4 mg Q8H PRN Administration Nausea And Vomiting Prednisone 30 mg 05/15/21 10:00 05/22/21 09:00 Prednisone 10 Mg Tab PO 30 mg QDAY SANTOS Administration Ritonavir 100 mg 05/10/21 15:00 05/22/21 10:48 Ritonavir 100 Mg Tab PO 100 mg QDAY SANTOS Administration Sodium Bicarbonate 1,300 mg 05/10/21 14:00 05/22/21 20:55 Sodium Bicarbonate 650 Mg Tab PO 1,300 mg TID SANTOS Administration Sodium Chloride 10 ml 05/10/21 22:00 05/22/21 22:17 Sodium Chloride 0.9% 10 Ml Flush Syringe IV 10 ml BID SANTOS Administration Sodium Chloride 10 ml 05/10/21 11:26 Sodium Chloride 0.9% 10 Ml Flush Syringe IV PRN PRN LINE FLUSH Zinc Sulfate 220 mg 05/10/21 22:00 05/22/21 22:16 Zinc Sulfate 220 Mg Cap PO 220 mg BID SANTOS Administration Zolpidem Tartrate 5 mg 05/22/21 22:00 05/22/21 22:17 Zolpidem 5 Mg Tab PO 5 mg QHS PRN Administration Sleep
[2021-05-23] MEDS: CHOLECALCIFEROL (VIT D3) 1000 UNIT (25 mcg) TAB PO SCH (13:30)
[2021-05-23] MEDS: HEPARIN 5,000 UNIT/1 ML VIAL SUB-Q SCH ×2 (13:30→21:16)
[2021-05-23] MEDS: RITONAVIR 100 MG TAB PO SCH (13:30)
[2021-05-23] MEDS: DOLUTEGRAVIR 50 MG TAB PO SCH (13:30)
[2021-05-23] MEDS: predniSONE 10 MG TAB PO SCH (13:30)
[2021-05-23] MEDS: ZINC SULFATE 220 MG CAP PO SCH ×2 (13:30→21:17)
[2021-05-23] MEDS: DARUNAVIR 800 MG TAB PO SCH (13:30)
[2021-05-23] MEDS: ASCORBIC ACID 500 MG TAB PO SCH ×2 (13:30→21:17)
[2021-05-23] MEDS: BUMETANIDE 1 MG/4 ML INJ IV SCH ×2 (13:30→21:16)
[2021-05-23] MEDS: METOPROLOL SUCCINATE XL 25 MG TAB PO SCH (13:30)
[2021-05-23] MEDS: MULTIVITAMINS,THER W-MINERALS TAB PO SCH (13:30)
[2021-05-23] MEDS: FLUCONAZOLE 200 MG TAB PO SCH (13:30)
[2021-05-23] MEDS: lamiVUDine 50 MG/5 ML ORAL LIQD PO SCH (13:30)
[2021-05-23] MEDS: ZOLPIDEM 5 MG TAB PO PRN (21:17)
--- NOTE | 2021-05-23 21:26 | Progress Note ---
Assessment and Plan Assessment and plan: 40-year-old male who was recently hospitalized and discharged earlier this month with a new diagnosis of HIV and suspected AIDS with associated renal dysfunction. Patient was also noted to have a diagnosis of COVID-19 pneumonia during that admission but not hypoxic at that time. Patient was recommended for outpatient follow-up with [facility] department. Patient is now readmitted with complaints of generalized weakness and worsening shortness of breath Assessment and plans: PJP pneumonia: On IV Bactrim, to be switched to oral at the time of discharge to complete 21-day course followed by chemoprophylaxis with half a tablet, 3 times a week after dialysis as per ID recommendations. Acute hypoxic respiratory failure. Etiology appears to be multifactorial including renal failure, volume overload and PCP pneumonia , improved/stable on 23 L O2 currently Pneumomediastinum and mild subcutaneous emphysema in the neck, newly noted on 05/18 with right IJ tunnel catheter in place, etiology appears to be related to PGP pneumonia/possible cyst rupture. Assessed by pulmonary in consultation on 05/19, needs no acute events and expected to be resolved by itself. Followed by Dr. Graves on 05/19. Sinus tachycardia, physiological response to pneumonia and hypoxia, stable HIV, suspected AIDS as patient is having PCP pneumonia. Noncompliance with ART, initiated ART given the patient's acute illness HIV associated nephropathy, BILLIE on CKD, HD initiated and nephrology recommends continuation of dialysis after discharge. Accelerated hypertension, resolved Hypotension since HD initiated, poorly tolerating HD initially but improving Leukocytosis on prednisone COVID-19. Patient initially tested + 04/24/2021 and 05/11/2021, was not a candidate for remdesivir. Severe anxiety: Improving Cachexia/malnutrition, dietary consulted Disposition: Remains stable for discharge pending outpatient dialysis arrangements by CM. Daily events: 05/11/2021. ID has been consulted and we will follow up HIV viral load, CD4 count and genotype. Follow-up LDH 1 3 beta D glucan. ID started Mepron to cover P MARTINEZ and avoiding Bactrim due to renal failure. We started steroids given the new hypoxia. ID also initiated ART with lamivudine, darunavir plus ritonavir and dolutegravir given the possibility of HIVAN. Consider pulmonary consultation. Nephrology following. Renal ultrasound shows signs of CKD. Nephrology to discuss hemodialysis initiation. Continue strict I's and O's daily and monitor renal function closely 05/12/2021. Patient is s/p placement of a right internal jugular tunneled cuffed hemodialysis catheter and initiation of hemodialysis on 05/11/2021. Patient is also undergo further hemodialysis today. CM consult to place patient at [place] dialysis unit. We will follow up HIV viral load, CD4 count and ge notype. Follow-up LDH 1 3 beta D glucan. ID started Mepron to cover P MARTINEZ and avoiding Bactrim due to renal failure. ID also initiated ART with lamivudine, darunavir plus ritonavir and dolutegravir given the possibility of HIVAN. Continue steroids given the hypoxia. Respiratory status has significantly improved after hemodialysis. I believe volume overload was the most significantly contributing factor/etiology. Follow-up serial chest x-ray. Patient currently with 2 L nasal cannula satting at 99% 05/13/2021. Continue hemodialysis per nephrology recommendations. Await outpatient arrangements for hemodialysis unit. We will follow up HIV viral load, CD4 count and genotype. Follow-up LDH 1 3 beta D glucan. ID started Mepron to cover P MARTINEZ and avoiding Bactrim due to renal failure. ID also initiated ART with lamivudine, darunavir plus ritonavir and dolutegravir given the possibility of HIVAN. Continue steroids given the hypoxia and change from Solu-Medrol IV to dexamethasone. Procalcitonin level was elevated at 6. We will continue IV antibiotics per ID recommendations 05/14/2021. Continue hemodialysis per nephrology recommendations. Await outpatient arrangements for hemodialysis unit. We will follow up HIV viral load, CD4 count and genotype. Follow-up LDH 1 3 beta D glucan. ID started Mepron to cover P MARTINEZ and avoiding Bactrim due to renal failure. ID also initia emely ART with lamivudine, darunavir plus ritonavir and dolutegravir given the possibility of HIVAN. Continue dexamethasone. Patient to follow-up with health department in early May. Case management follow-up with regards to home ART before follow-up with the health department 05/15/2021. Continue hemodialysis per nephrology recommendations. Await outpatient arrangements for hemodialysis unit. Patient wants anxiety medication prior to dialysis. We will start Xanax 0.25 mg as needed. Continue lamivudine, darunavir plus ritonavir and dolutegravir given the possibility of HIVAN. Continue dexamethasone. Patient to follow-up with health department in early May. Case management follow-up with regards to home ART before follow-up with the health department 05/16/2021. Continue hemodialysis per nephrology recommendations. Await outpatient arrangements for hemodialysis unit. Renal US showed CKD signs. Strict I&O's daily. Obtain daily weights. Continue Xanax prior to hemodialysis for anxiety. Continue lamivudine, darunavir plus ritonavir and dolutegravir given the possibility of HIVAN. Continue dexamethasone. Patient to follow-up with health department in early May. Patient with elevated diastolic BP greater than 100. We will start Procardia 30 mg twice daily. 05/17/2021. Patient to be initiated on MWF hemodialysis schedule. Patient requesting Xanax for, better prior to hemodialysis session. Await outpatient arrangements for hemodialysis unit per case management. Renal ultrasound revealed signs of chronic kidney disease. Continue strict I&O's daily. Obtain daily weights. Continue lamivudine, darunavir plus ritonavir and dolutegravir given the possibility of HIVAN. Continue dexamethasone. Patient to follow-up with health department in early May. Patient's BP much better controlled with the addition of Procardia. 05/18: Hemodialysis was discontinued yesterday after 1 hour if patient request as he was feeling weak with hypotension. BP remains low to 80s. Given NS bolus management this morning. Procardia discontinued. Bumex is on hold. Excellent urine. Still feeling weak. Remains anxious. Asking to be sedated during dialysis. CXR ordered daily Dr. Graves shows mild localized subcutaneous emphysema and right-sided neck pain currently dialysis catheter is placed. A CT chest showed diabetes mellitus with emphysema-like cough. Vascular surgery is addressing this. Sinus tachycardia stable. On room air without acute respite distress at rest. Discussed with the patient, nursing staff and vascular surgery. 05/19:Patient is feeling much better after undergoing hemodialysis for 3 hours today.Breathing much better. Mild subcutis emphysema in the right supraclavicular fossa seems stable. This is assisted by pulmonary in con sultation and reevaluation by today. No acute intervention required, expected to resolve by itself. Looks more comfortable and less anxious. Remains on 3 L of O2. 05/20: No acute events. Remains on 3 L O2. Pneumomediastinum and subcutaneous emphysema stable. Bactrim changed from p.o. to IV. Sinus tach worse today and received Lopressor IV x1 dose. Discussed with ID. 05/21: No acute events, stable, awaiting outpatient dialysis arrangements for discharge. 05/22: Chronic anxiety, better. Since tachycardia stable. Remains on 2 to 3 days of O2. Stable for discharge pending outpatient dialysis arrangements. Discussed with CM. 05/23: Remains stable for discharge pending outpatient arrangements by CM. History Interval history: Patient remains stable on 2 to 3 L O2. Afebrile. Sinus tachycardia stable. Anxiety better. Today, he feels better. Hospitalist Physical - Constitutional Vitals: Temp Pulse Resp BP Pulse Ox 98.7 F 114 H 18 141/105 97 05/23/21 17:20 05/23/21 17:20 05/23/21 17:20 05/23/21 17:20 05/23/21 17:20 General appearance: Present: no acute distress, cachectic, disheveled, other (Anxious) - EENT Eyes: Present: PERRL, EOM intact ENT: clear oral mucosa - Neck Neck: Present: supple, other (Mild subcutaneous emphysema in right supraclavicular fossa) - Respiratory Respiratory effort: normal Respiratory: bilateral: diminished, rales - Cardiovascular Rhythm: other (Sinus tachycardia, stable) - Extremities Extremities: No edema - Abdominal General gastrointestinal: soft, non-tender, non-distended - Psychiatric Psychiatric: other (Anxiety, better) - Neurologic Neurologic: no focal deficits, moves all extremities HEART Score - HEART Score Troponin: Troponin T 0.011 ng/mL (0.00-0.029) 05/19/21 06:50 Results - Labs CBC & Chem 7: 05/20/21 09:45 05/23/21 05:47 Labs: Laboratory Last Values WBC 9.8 K/mm3 (4.5-11.0) 05/20/21 09:45 WBC 9.8 K/mm3 (4.5-11.0) 05/20/21 09:45 RBC 2.78 M/mm3 (3.65-5.03) L 05/20/21 09:45 RBC 2.78 M/mm3 (3.65-5.03) L 05/20/21 09:45 Hgb 8.6 gm/dl (11.8-15.2) L 05/20/21 09:45 Hgb 8.6 gm/dl (11.8-15.2) L 05/20/21 09:45 Hct 26.4 % (35.5-45.6) L 05/20/21 09:45 Hct 26.4 % (35.5-45.6) L 05/20/21 09:45 MCV 95 fl (84-94) H 05/20/21 09:45 MCV 95 fl (84-94) H 05/20/21 09:45 MCH 31 pg (28-32) 05/20/21 09:45 MCH 31 pg (28-32) 05/20/21 09:45 MCHC 33 % (32-34) 05/20/21 09:45 MCHC 33 % (32-34) 05/20/21 09:45 RDW 14.9 % (13.2-15.2) 05/20/21 09:45 RDW 14.9 % (13.2-15.2) 05/20/21 09:45 Plt Count 377 K/mm3 (140-440) 05/20/21 09:45 Plt Count 377 K/mm3 (140-440) 05/20/21 09:45 Lymph % (Auto) Not Reportable 05/20/21 09:45 [place] % (Auto) Not Reportable 05/20/21 09:45 Eos % (Auto) Not Reportable 05/20/21 09:45 Baso % (Auto) Not Reportable 05/20/21 09:45 Lymph # (Auto) Not Reportable 05/20/21 09:45 [place] # (Auto) Not Reportable 05/20/21 09:45 Eos # (Auto) Not Reportable 05/20/21 09:45 Baso # (Auto) Not Reportable 05/20/21 09:45 Add Manual Diff Complete 05/20/21 09:45 Total Counted 100 05/20/21 09:45 Seg Neutrophils % Practice Representative 05/20/21 09:45 Seg Neuts % (Manual) 98.0 % (40.0-70.0) H 05/20/21 09:45 Band Neutrophils % 0 % 05/20/21 09:45 Lymphocytes % (Manual) 1.0 % (13.4-35.0) L 05/20/21 09:45 Reactive Lymphs % (Man) 0 % 05/20/21 09:45 Monocytes % (Manual) 1.0 % (0.0-7.3) 05/20/21 09:45 Eosinophils % (Manual) 0 % (0.0-4.3) 05/20/21 09:45 Basophils % (Manual) 0 % (0.0-1.8) 05/20/21 09:45 Metamyelocytes % 0 % 05/20/21 09:45 Myelocytes % 0 % 05/20/21 09:45 Promyelocytes % 0 % 05/20/21 09:45 Blast Cells % 0 % 05/20/21 09:45 Nucleated RBC % Not Reportable 05/20/21 09:45 Seg Neutrophils # Not Reportable 05/20/21 09:45 Seg Neutrophils # Man 9.6 K/mm3 (1.8-7.7) H 05/20/21 09:45 Band Neutrophils # 0.0 K/mm3 05/20/21 09:45 Abs Lymphs (Manual) 291 cells/uL (850-3900) L 05/10/21 17:09 Lymphocytes # (Manual) 0.1 K/mm3 (1.2-5.4) L 05/20/21 09:45 Abs React Lymphs (Man) 0.0 K/mm3 05/20/21 09:45 Monocytes # (Manual) 0.1 K/mm3 (0.0-0.8) 05/20/21 09:45 Eosinophils # (Manual) 0.0 K/mm3 (0.0-0.4) 05/20/21 09:45 Basophils # (Manual) 0.0 K/mm3 (0.0-0.1) 05/20/21 09:45 Metamyelocytes # 0.0 K/mm3 05/20/21 09:45 Myelocytes # 0.0 K/mm3 05/20/21 09:45 Promyelocytes # 0.0 K/mm3 05/20/21 09:45 Blast Cells # 0.0 K/mm3 05/20/21 09:45 WBC Morphology Not Reportable 05/20/21 09:45 Hypersegmented Neuts Rare 05/20/21 09:45 Hyposegmented Neuts Not Reportable 05/20/21 09:45 Hypogranular Neuts Not Reportable 05/20/21 09:45 Smudge Cells Not Reportable 05/20/21 09:45 Toxic Granulation 1+ 05/20/21 09:45 Toxic Vacuolation Not Reportable 05/20/21 09:45 Dohle Bodies Rare 05/20/21 09:45 Pelger-Huet Anomaly Not Reportable 05/20/21 09:45 Karishma Rods Not Reportable 05/20/21 09:45 Platelet Estimate Consistent w auto 05/20/21 09:45 Clumped Platelets Not Reportable 05/20/21 09:45 Plt Clumps, EDTA Not Reportable 05/20/21 09:45 Large Platelets Not Reportable 05/20/21 09:45 Giant Platelets Not Reportable 05/20/21 09:45 Platelet Satelliting Not Reportable 05/20/21 09:45 Plt Morphology Comment Not Reportable 05/20/21 09:45 RBC Morphology Not Reportable 05/20/21 09:45 Dimorphic RBCs Not Reportable 05/20/21 09:45 Polychromasia Not Reportable 05/20/21 09:45 Hypochromasia Not Reportable 05/20/21 09:45 Poikilocytosis Not Reportable 05/20/21 09:45 Anisocytosis 1+ 05/20/21 09:45 Microcytosis Not Reportable 05/20/21 09:45 Macrocytosis Not Reportable 05/20/21 09:45 Spherocytes Not Reportable 05/20/21 09:45 Pappenheimer Bodies Not Reportable 05/20/21 09:45 Sickle Cells Not Reportable 05/20/21 09:45 Target Cells Not Reportable 05/20/21 09:45 Tear Drop Cells Not Reportable 05/20/21 09:45 Ovalocytes Not Reportable 05/20/21 09:45 Helmet Cells Not Reportable 05/20/21 09:45 [place] Bodies Not Reportable 05/20/21 09:45 Wister Rings Not Reportable 05/20/21 09:45 [place] Cells Not Reportable 05/20/21 09:45 Bite Cells Not Reportable 05/20/21 09:45 Crenated Cell Not Reportable 05/20/21 09:45 Elliptocytes Not Reportable 05/20/21 09:45 Acanthocytes (Spur) Not Reportable 05/20/21 09:45 Rouleaux Not Reportable 05/20/21 09:45 Hemoglobin C Crystals Not Reportable 05/20/21 09:45 Schistocytes Not Reportable 05/20/21 09:45 Malaria parasites Not Reportable 05/20/21 09:45 Angus Bodies Not Reportable 05/20/21 09:45 Hem Pathologist Commnt No 05/20/21 09:45 D-Dimer 730.16 ng/mlDDU (0-234) H 05/10/21 09:45 Sodium 133 mmol/L (137-145) L 05/23/21 05:47 Potassium 3.4 mmol/L (3.6-5.0) L 05/23/21 05:47 Chloride 94.5 mmol/L (98-107) L 05/23/21 05:47 Carbon Dioxide 22 mmol/L (22-30) 05/23/21 05:47 Anion Gap 20 mmol/L 05/23/21 05:47 BUN 44 mg/dL (9-20) H 05/23/21 05:47 Creatinine 5.6 mg/dL (0.8-1.3) H 05/23/21 05:47 Estimated GFR 14 ml/min 05/23/21 05:47 BUN/Creatinine Ratio 8 % 05/23/21 05:47 Glucose 74 mg/dL (75-100) L 05/23/21 05:47 Lactic Acid 2.10 mmol/L (0.7-2.0) H* 05/11/21 09:53 Calcium 8.4 mg/dL (8.4-10.2) 05/23/21 05:47 Magnesium 2.30 mg/dL (1.7-2.3) 05/21/21 05:35 Ferritin 1426.0 ng/mL (30.0-300.0) H 05/10/21 09:45 Total Bilirubin 0.20 mg/dL (0.1-1.2) 05/20/21 09:45 AST 39 units/L (5-40) 05/20/21 09:45 ALT 35 units/L (7-56) 05/20/21 09:45 Alkaline Phosphatase 86 units/L (35-129) 05/20/21 09:45 Lactate Dehydrogenase 600 units/L (91-180) H 05/10/21 09:45 Lactate Dehydrogenase 623 units/L (91-180) H 05/10/21 09:45 Total Creatine Kinase 31 units/L (55-170) L 05/10/21 09:45 CK-MB (CK-2) < 1.0 ng/mL (0.0-4.0) 05/10/21 09:45 CK-MB (CK-2) Rel Index 3.2 (0-4) 05/10/21 09:45 Troponin T 0.011 ng/mL (0.00-0.029) 05/19/21 06:50 C-Reactive Protein 8.90 mg/dL (0.00-1.30) H 05/10/21 09:45 C-Reactive Protein 9.00 mg/dL (0.00-1.30) H 05/10/21 09:45 NT-Pro-B Natriuret Pep 4065 pg/mL (0-450) H 05/10/21 09:45 Total Protein 6.3 g/dL (6.3-8.2) 05/20/21 09:45 Albumin 2.6 g/dL (3.9-5) L 05/20/21 09:45 Albumin/Globulin Ratio 0.7 % 05/20/21 09:45 Procalcitonin 6.81 ng/mL (<0.15) 05/10/21 09:45 TSH 2.390 mlU/mL (0.270-4.200) 05/10/21 09:45 Free T4 0.94 ng/dL (0.76-1.46) 05/10/21 09:45 Urine Color Yellow (Yellow) 05/10/21 13:49 Urine Turbidity Clear (Clear) 05/10/21 13:49 Urine pH 8.0 (5.0-7.0) H 05/10/21 13:49 Ur Specific [place] 1.025 (1.003-1.030) 05/10/21 13:49 Urine Protein 100 mg/dl mg/dL (Negative) 05/10/21 13:49 Urine Glucose (UA) Negative mg/dL (Negative) 05/10/21 13:49 Urine Ketones Negative mg/dL (Negative) 05/10/21 13:49 Urine Blood Negative (Negative) 05/10/21 13:49 Urine Nitrite Negative (Negative) 05/10/21 13:49 Ur Reducing Substances Not Reportable 05/10/21 13:49 Urine Bilirubin Negative (Negative) 05/10/21 13:49 Urine Ictotest Not Reportable 05/10/21 13:49 Urine Urobilinogen 0.0 mg/dL (<2.0) 05/10/21 13:49 Ur Leukocyte Esterase Negative (Negative) 05/10/21 13:49 Urine WBC (Auto) 2.0 /HPF (0.0-6.0) 05/10/21 13:49 Urine RBC (Auto) < 1.0 /HPF (0.0-6.0) 05/10/21 13:49 U Epithel Cells (Auto) 1.0 /HPF (0-13.0) 05/10/21 13:49 Lymph Enumerat CD4/CD8 0.00 (0.86-5.00) L 05/10/21 17:09 % CD3 Cells 78 % (57-85) 05/10/21 17:09 Absolute CD3 Count 228 cells/uL (840-3060) L 05/10/21 17:09 % CD4 Cells 0 % (30-61) L 05/10/21 17:09 Absolute CD4 Count 0 cells/uL (490-1740) L 05/10/21 17:09 % CD8 Cells 78 % (12-42) H 05/10/21 17:09 Absolute CD8 Count 239 cells/uL (180-1170) 05/10/21 17:09 % CD19 Cells 1 % (6-29) L 05/10/21 17:09 Absolute CD19 Count 2 cells/uL (110-660) L 05/10/21 17:09 Coronavirus (PCR) Positive (Negative) A 05/11/21 09:00 Hepatitis A IgM Ab Non-reactive (NonReactive) 05/11/21 09:53 Hep Bs Antigen Non-reactive (Negative) 05/11/21 09:53 Hep B Core IgM Ab Non-reactive (NonReactive) 05/11/21 09:53 Hepatitis C Antibody Non-reactive (NonReactive) 05/11/21 09:53 HIV-1 RNA PCR copies/ml 61514 Copies/mL H 05/10/21 17:09 HIV-1 RNA (PCR) log 4.71 Log cps/mL H 05/10/21 17:09 HIV-1 Genotyping Detected H 05/11/21 09:53 Miscellaneous Test Flexitest 1 H 05/11/21 12:41 Krishnan/IV: Voiding Method Urinal Active Medications - Current Medications Current Medications: Generic Name Dose Route Start Last Admin Trade Name Freq PRN Reason Stop Dose Admin Acetaminophen 650 mg 05/10/21 11:26 05/20/21 09:00 Acetaminophen 325 Mg Tab PO 650 mg Q4H PRN Administration Pain MILD(1-3)/Fever >100.5/LANGLEY Albuterol 2.5 mg 05/10/21 11:26 05/21/21 20:05 Albuterol 2.5 Mg/3 Ml Nebu IH 2.5 mg Q4HRT PRN Administration Shortness Of Breath Alprazolam 0.25 mg 05/15/21 09:38 05/22/21 10:45 Alprazolam 0.25 Mg Tab PO 0.25 mg DAILY PRN Administration Anxiety Ascorbic Acid 500 mg 05/10/21 22:00 05/23/21 21:17 Ascorbic Acid 500 Mg Tab PO 500 mg BID SANTOS Administration Bumetanide 1 mg 05/20/21 22:00 05/23/21 21:16 Bumetanide 1 Mg/4 Ml Inj IV 1 mg BID SANTOS Administration Cholecalciferol 1,000 unit 05/21/21 12:00 05/23/21 13:30 Cholecalciferol (Vit D3) 1000 Unit (25 Mcg) Tab PO 1,000 unit QDAY SANTOS Administration Darunavir 800 mg 05/10/21 14:45 05/23/21 13:30 Darunavir 800 Mg Tab PO 800 mg QDAY SANTOS Administration Dolutegravir Sodium 50 mg 05/10/21 15:00 05/23/21 13:30 Dolutegravir 50 Mg Tab PO 50 mg QDAY SANTOS Administration Fluconazole 200 mg 05/19/21 19:00 05/23/21 13:30 Fluconazole 200 Mg Tab PO 06/08/21 10:01 200 mg QDAY SANTOS Administration Protocol Heparin Sodium (Porcine) 5,000 unit 05/10/21 22:00 05/23/21 21:16 Heparin 5,000 Unit/1 Ml Vial SUB-Q 5,000 unit Q12HR SANTOS Administration Sodium Chloride 100 mls @ 999 mls/hr 05/13/21 13:10 Nacl 0.9% IV TRENT PRN Hypotension Trimethoprim/Sulfamethoxazole 158.125 mls @ 105.417 mls/hr 05/20/21 16:00 05/23/21 16:00 130 mg/ Dextrose/ IV 105.417 mls/hr Miscellaneous Information Q8H SANTOS Administration Lamivudine 100 mg 05/10/21 15:00 05/23/21 13:30 Lamivudine 50 Mg/5 Ml Oral Liqd PO 100 mg DAILY SANTOS Administration Metoprolol Succinate 25 mg 05/22/21 11:00 05/23/21 13:30 Metoprolol Succinate Xl 25 Mg Tab PO 25 mg QDAY SANTOS Administration Multivitamins/Minerals 1 each 05/11/21 10:00 05/23/21 13:30 Multivitamins,Ther W-Minerals Tab PO 1 each QDAY SANTOS Administration Ondansetron HCl 4 mg 05/10/21 11:26 05/20/21 12:16 Ondansetron 4 Mg/2 Ml Inj IV 4 mg Q8H PRN Administration Nausea And Vomiting Prednisone 30 mg 05/15/21 10:00 05/23/21 13:30 Prednisone 10 Mg Tab PO 30 mg QDAY SANTOS Administration Ritonavir 100 mg 05/10/21 15:00 05/23/21 13:30 Ritonavir 100 Mg Tab PO 100 mg QDAY SANTOS Administration Sodium Bicarbonate 1,300 mg 05/10/21 14:00 05/23/21 20:28 Sodium Bicarbonate 650 Mg Tab PO 1,300 mg TID SANTOS Administration Sodium Chloride 10 ml 05/10/21 22:00 05/23/21 21:17 Sodium Chloride 0.9% 10 Ml Flush Syringe IV 10 ml BID SANTOS Administration Sodium Chloride 10 ml 05/10/21 11:26 Sodium Chloride 0.9% 10 Ml Flush Syringe IV PRN PRN LINE FLUSH Zinc Sulfate 220 mg 05/10/21 22:00 05/23/21 21:17 Zinc Sulfate 220 Mg Cap PO 220 mg BID SANTOS Administration Zolpidem Tartrate 5 mg 05/22/21 22:00 05/23/21 21:17 Zolpidem 5 Mg Tab PO 5 mg QHS PRN Administration Sleep Nutrition/Malnutrition Assess - Dietary Evaluation Nutrition/Malnutrition Findings: Nutrition Notes Start: 05/11/21 12:44 Freq: Status: Active Protocol: Document 05/21/21 17:00 DALY (Rec: 05/21/21 17:33 DALY [email or web address]) Nutrition Notes Initial or Follow up Reassessment Current Diagnosis Acute Kidney Injury,CKD (stage V CKD),Sepsis,Respiratory Failure,Malnutrition Other Pertinent Diagnosis COVID-19/Pneumonia, BILLIE/CKD/ ESRD+HD, HIV/Nephropathy/AIDS, Esophagitis ... Current Diet Renal Diet (since D 05/14), D Suppl (since D 05/14). Labs/Tests 05/21: Na 130, Cl 88.4, BUN 69 , Crea 6.6, Glu 137. Pertinent Medications 05/21: nutritionally unremarkable. Height 6 ft 2 in Weight 55.3 kg [place] Body Weight (kg) 86.36 BMI 15.6 Weight change and time frame 0.5 Kg body weight loss in 1 week reported. Weight Status Underweight Subjective/Other Information RD consult for Dietary advancement, % intake of meals , and body weight change. Pt continues on Renal Diet and Nepro ONS TID, and receiving PBJ sandwichwes on each meal. Pt's PO intake of meals has been Poor (25%), according to ADL notes. 0.5 Kg body weight loss in 1 week reported. Percent of energy/protein needs met: Prescribed Renal Diet provides for energy/protein needs (2, 072 Kcal/77 g) during LOS; additionally, Dietary Supplements will compensate for possible poor or insufficient PO intake of meals with 1,275 Kcal and 57 g of protein. Burn Absent Trauma Absent GI Symptoms None Food Allergy No Skin Integrity/Comment Redness, Dryness. Current % PO Poor (25-49%) Minimum of two criteria Yes #1 Nutrition Diagnosis Underweight Diagnosis Progress(for reassessment Continues documentation) Is patient on ventilator? No Is Patient Ambulatory and/or Out of Bed Yes REE-([facility]-ambulatory/OOB) [ [id number] [id number]] Calculation Used for Recommendations [facility] Additional Notes Protein: >1.2 g/Kg; >67 g/day. Fluids: 1 ml/Kcal, or as per MD. Nutrition Intervention Change Diet Order: Continue Renal Diet and Pt's Preferred food items. Add Supplement/Snack (indicate name/kcal Continue 8 fl oz Nepro w/ /protein ) CARBSTEADY; TID. Provides kCal: 1,275 Provides Protein (gm) 57 Goal #1 Compensate, through dietary supplementation, for possible poor or insufficient PO intake of meals during LOS. Goal #2 Maintain body weight within +/ -3% of admission body weight during LOS. Follow-Up By: 05/28/21 Additional Comments Continue monitoring food tolerance, %PO intake of meals , and BM.
[2021-05-24] MEDS: SMX IV SCH ×3 (00:47→19:03)
[2021-05-24] MEDS: hydrALAZINE 20 MG/1 ML INJ IV PRN ×2 (00:47→05:50)
[2021-05-24] MEDS: DEXTROSE 5% IV SCH ×3 (00:47→19:03)
[2021-05-24] MEDS: TMP IV SCH ×3 (00:47→19:03)
[2021-05-24] MEDS: WATER IV SCH ×3 (00:47→19:03)
[2021-05-24] MEDS: ALPRAZolam 0.25 MG TAB PO PRN (08:36)
[2021-05-24] MEDS: SODIUM BICARBONATE 650 MG TAB PO SCH ×3 (09:19→22:08)
--- NOTE | 2021-05-24 11:26 | Progress Note ---
Assessment and Plan Cultures: 05/10/2021 blood culture: no growth 05/11/2021 COVID-19 PCR: Positive 05/11/2021 serum cryptococcal antigen: Negative HIV Viral load: 51,000 CD4 count: 0 Fungitell strongly positive, >500 Previous admission labs reviewed: Negative for syphilis, C. difficile PCR, hepatitis panel 04/24/2021 COVID-19 PCR: Positive A/P: 40-year-old male who was recently hospitalized and discharged earlier this month with a new diagnosis of HIV and suspected AIDS along with renal dysfunction. He was also diagnosed with COVID-19 during that admission. He was recommended outpatient follow-up with [facility]. Now readmitted with generalized weakness, worsening shortness of breath: #HIV/AIDS, ?HIVAN: Establishing care for ongoing HIV care is critical now with CD4 count of 0 #COVID-19: Initially tested positive on 04/24/2021, not a candidate for Remdesivir. #Acute hypoxic resp failure: ?COVID v/s renal failure v/s PCP pneumonia. #Pneumomediastinum: likely PCP related, common cause of spontaneous pneumothorax/pneumomediastinum. #PJP pneumonia: Given symptoms and positive Fungitell, likely PJP pneumonia. Fungitell can be falsely elevated by hemodialysis, however would treat empirically #Acute renal failure: ?HIVAN. Nephrology following. Now on HD. #Esophagitis: on fluconazole. Recs: -Discussed with Dr. Martinez, will switch to IV Bactrim for a few days, when ready for discharge, can convert back to PO Bactrim . 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 -taper steroids over 21 days -Given concern for HIVAN, ART was started on 05/10/2021: continue with lamivudine 100 mg daily, darunavir + ritonavir, dolutegravir -Will need social work/pharmacy assistance to give him at least 2 weeks of ART supply if possible, till patient follows up at HIV clinic ([facility] or [facility]) -continue fluconazole 200mg q24h x 3 weeks Fernando Kuhn MD [facility] ([facility] O: [phone] F: [phone] Subjective Date of service: 05/24/21 Principal diagnosis: ESRD Interval history: Afebrile, no acute change. Objective - Exam Narrative Exam: Physical Exam Constitutional: Alert, cooperative. No acute distress Head, Ears, Nose: Normocephalic, atraumatic. External ears, nose normal Eyes: Conjunctivae/corneas clear. No icterus. No ptosis. Neck: Supple, no meningeal signs Cardiovascular: S1, S2 + Respiratory: AE fair b/l, occ crackles GI: Soft, non-tender; bowel sounds normal. No peritoneal signs Musculoskeletal: No pedal edema, no cyanosis. Skin: No rash or abscess Hem/Lymphatic: No palpable cervical or supraclavicular nodes. Psych: Mood ok. Affect normal Neurological: Awake, alert, oriented. No gross abnormality - Constitutional Vitals: Vital Signs Temp Pulse Resp BP Pulse Ox 98.2 F 112 H 18 138/86 100 05/24/21 09:55 05/24/21 10:45 05/24/21 09:55 05/24/21 10:45 05/24/21 09:55 Temperature -Last 24 Hours Temperature 98.2 F Temperature 98.5 F Temperature 98.2 F Temperature 98.7 F Temperature 99.2 F - Labs CBC & Chem 7: 05/20/21 09:45 05/23/21 05:47
--- NOTE | 2021-05-24 12:15 | Progress Note ---
Assessment and Plan (1) Sepsis (2) Pneumonia (3) Malnutrition (4) Acute respiratory failure with hypoxia (5) COVID-19 (6) HIV (human immunodeficiency virus infection) (7) Progressive CKD likely ESRD HD today for clearance and volume removal kidney disease could be related to HIVAN Renal US showed CKD signs s/p TDC apr 15, HD#1 may [address] patient at OP dialysis unit. Renally dose medications Strict I&O's daily Obtain daily weights Continue to monitor renal function closely Subjective Date of service: 05/24/21 Principal diagnosis: ESRD Interval history: no overnight events Objective - Vital Signs Vital signs: Vital Signs - 12hr 05/24/21 05/24/21 05/24/21 00:47 05:22 05:50 Temperature 98.5 F Pulse Rate 106 H 103 H 103 H Respiratory 16 Rate Blood Pressure 149/102 144/100 144/100 O2 Sat by Pulse 98 Oximetry O2 Sat by Pulse Oximetry [ Bilateral Throughout] 05/24/21 05/24/21 05/24/21 09:55 10:00 10:15 Temperature 98.2 F Pulse Rate 102 H 102 H 100 H Respiratory 18 Rate Blood Pressure 145/90 149/93 144/93 O2 Sat by Pulse 95 Oximetry O2 Sat by Pulse 100 Oximetry [ Bilateral Throughout] 05/24/21 05/24/21 10:30 10:45 Temperature Pulse Rate 103 H 112 H Respiratory Rate Blood Pressure 151/87 138/86 O2 Sat by Pulse Oximetry O2 Sat by Pulse Oximetry [ Bilateral Throughout] - Lab 05/20/21 09:45 05/23/21 05:47 Most recent lab results Calcium 8.4 mg/dL (8.4-10.2) 05/23/21 05:47 Magnesium 2.30 mg/dL (1.7-2.3) 05/21/21 05:35 Medications & Allergies - Medications Allergies/Adverse Reactions: Allergies No Known Allergies Allergy (Verified 04/20/21 08:43) Home Medications: Home Medications Medication Instructions Recorded Confirmed Last Taken Type Multivit-Min/Folic/Vit K/Lycop 1 tab PO QDAY 04/21/21 05/13/21 3 Days Ago History [Men's Multivitamin Tablet] ~04/18/21 Sodium Bicarbonate 1,300 mg PO TID #90 tablet 05/01/21 05/13/21 Unknown Rx Active Medications: Generic Name Dose Route Start Last Admin Trade Name Honorio PRN Reason Stop Dose Admin Acetaminophen 650 mg 05/10/21 11:26 05/20/21 09:00 Acetaminophen 325 Mg Tab PO 650 mg Q4H PRN Administration Pain MILD(1-3)/Fever >100.5/LANGLEY Albuterol 2.5 mg 05/10/21 11:26 05/21/21 20:05 Albuterol 2.5 Mg/3 Ml Nebu IH 2.5 mg Q4HRT PRN Administration Shortness Of Breath Alprazolam 0.25 mg 05/15/21 09:38 05/24/21 08:36 Alprazolam 0.25 Mg Tab PO 0.25 mg DAILY PRN Administration Anxiety Ascorbic Acid 500 mg 05/10/21 22:00 05/23/21 21:17 Ascorbic Acid 500 Mg Tab PO 500 mg BID SANTOS Administration Bumetanide 1 mg 05/20/21 22:00 05/23/21 21:16 Bumetanide 1 Mg/4 Ml Inj IV 1 mg BID SANTOS Administration Cholecalciferol 1,000 unit 05/21/21 12:00 05/23/21 13:30 Cholecalciferol (Vit D3) 1000 Unit (25 Mcg) Tab PO 1,000 unit QDAY SANTOS Administration Darunavir 800 mg 05/10/21 14:45 05/23/21 13:30 Darunavir 800 Mg Tab PO 800 mg QDAY SANTOS Administration Dolutegravir Sodium 50 mg 05/10/21 15:00 05/23/21 13:30 Dolutegravir 50 Mg Tab PO 50 mg QDAY SANTOS Administration Fluconazole 200 mg 05/19/21 19:00 05/23/21 13:30 Fluconazole 200 Mg Tab PO 06/08/21 10:01 200 mg QDAY SANTOS Administration Protocol Heparin Sodium (Porcine) 5,000 unit 05/10/21 22:00 05/23/21 21:16 Heparin 5,000 Unit/1 Ml Vial SUB-Q 5,000 unit Q12HR SANTOS Administration Hydralazine HCl 10 mg 05/23/21 21:30 05/24/21 05:50 Hydralazine 20 Mg/1 Ml Inj IV 10 mg Q4HR PRN Administration Blood Pressure Sodium Chloride 100 mls @ 999 mls/hr 05/13/21 13:10 Nacl 0.9% IV TRENT PRN Hypotension Trimethoprim/Sulfamethoxazole 158.125 mls @ 105.417 mls/hr 05/20/21 16:00 05/24/21 08:28 130 mg/ Dextrose/ IV 105.417 mls/hr Miscellaneous Information Q8H SANTOS Administration Lamivudine 100 mg 05/10/21 15:00 05/23/21 13:30 Lamivudine 50 Mg/5 Ml Oral Liqd PO 100 mg DAILY SANTOS Administration Metoprolol Succinate 25 mg 05/22/21 11:00 05/23/21 13:30 Metoprolol Succinate Xl 25 Mg Tab PO 25 mg QDAY SANTOS Administration Multivitamins/Minerals 1 each 05/11/21 10:00 05/23/21 13:30 Multivitamins,Ther W-Minerals Tab PO 1 each QDAY SANTOS Administration Ondansetron HCl 4 mg 05/10/21 11:26 05/20/21 12:16 Ondansetron 4 Mg/2 Ml Inj IV 4 mg Q8H PRN Administration Nausea And Vomiting Prednisone 30 mg 05/15/21 10:00 05/23/21 13:30 Prednisone 10 Mg Tab PO 30 mg QDAY SANTOS Administration Ritonavir 100 mg 05/10/21 15:00 05/23/21 13:30 Ritonavir 100 Mg Tab PO 100 mg QDAY SANTOS Administration Sodium Bicarbonate 1,300 mg 05/10/21 14:00 05/24/21 09:19 Sodium Bicarbonate 650 Mg Tab PO 1,300 mg TID SANTOS Administration Sodium Chloride 10 ml 05/10/21 22:00 05/23/21 21:17 Sodium Chloride 0.9% 10 Ml Flush Syringe IV 10 ml BID SANTOS Administration Sodium Chloride 10 ml 05/10/21 11:26 Sodium Chloride 0.9% 10 Ml Flush Syringe IV PRN PRN LINE FLUSH Zinc Sulfate 220 mg 05/10/21 22:00 05/23/21 21:17 Zinc Sulfate 220 Mg Cap PO 220 mg BID SANTOS Administration Zolpidem Tartrate 5 mg 05/22/21 22:00 05/23/21 21:17 Zolpidem 5 Mg Tab PO 5 mg QHS PRN Administration Sleep
[2021-05-24] MEDS: BUMETANIDE 1 MG/4 ML INJ IV SCH ×2 (12:49→22:09)
[2021-05-24] MEDS: HEPARIN 5,000 UNIT/1 ML VIAL SUB-Q SCH ×2 (12:49→22:07)
[2021-05-24] MEDS: ASCORBIC ACID 500 MG TAB PO SCH ×2 (13:17→22:09)
[2021-05-24] MEDS: METOPROLOL SUCCINATE XL 25 MG TAB PO SCH (13:17)
[2021-05-24] MEDS: ZINC SULFATE 220 MG CAP PO SCH ×2 (13:17→22:10)
[2021-05-24] MEDS: FLUCONAZOLE 200 MG TAB PO SCH (13:18)
[2021-05-24] MEDS: DARUNAVIR 800 MG TAB PO SCH (13:18)
[2021-05-24] MEDS: RITONAVIR 100 MG TAB PO SCH (13:18)
[2021-05-24] MEDS: DOLUTEGRAVIR 50 MG TAB PO SCH (13:18)
[2021-05-24] MEDS: lamiVUDine 50 MG/5 ML ORAL LIQD PO SCH (13:19)
[2021-05-24] MEDS: predniSONE 10 MG TAB PO SCH (13:23)
[2021-05-24] MEDS: MULTIVITAMINS,THER W-MINERALS TAB PO SCH (13:51)
[2021-05-24] MEDS: CHOLECALCIFEROL (VIT D3) 1000 UNIT (25 mcg) TAB PO SCH (13:51)
--- NOTE | 2021-05-24 20:28 | Progress Note ---
Assessment and Plan Assessment and plan: 40-year-old male who was recently hospitalized and discharged earlier this month with a new diagnosis of HIV and suspected AIDS with associated renal dysfunction. Patient was also noted to have a diagnosis of COVID-19 pneumonia during that admission but not hypoxic at that time. Patient was recommended for outpatient follow-up with [facility] department. Patient is now readmitted with complaints of generalized weakness and worsening shortness of breath Assessment and plans: PJP pneumonia: On IV Bactrim, to be switched to oral at the time of discharge to complete 21-day course followed by chemoprophylaxis with half a tablet, 3 times a week after dialysis as per ID recommendations. Acute hypoxic respiratory failure. Etiology appears to be multifactorial including renal failure, volume overload and PCP pneumonia , improved/stable on 23 L O2 currently Pneumomediastinum and mild subcutaneous emphysema in the neck, newly noted on 05/18 with right IJ tunnel catheter in place, etiology appears to be related to PGP pneumonia/possible cyst rupture. Assessed by pulmonary in consultation on 05/19, needs no acute events and expected to be resolved by itself. Followed by Dr. Graves on 05/19. Sinus tachycardia, physiological response to pneumonia and hypoxia, stable HIV, suspected AIDS as patient is having PCP pneumonia. Noncompliance with ART, initiated ART given the patient's acute illness HIV associated nephropathy, BILLIE on CKD, HD initiated and continued on MWF schedule. Nephrology recommends continuation of dialysis after discharge. Accelerated hypertension, resolved Hypotension since HD initiated, poorly tolerating HD initially but improving Leukocytosis on prednisone COVID-19. Patient initially tested + 04/24/2021 and 05/11/2021, was not a candidate for remdesivir. Severe anxiety: Improving Cachexia/malnutrition, dietary consulted Disposition: Remains stable for discharge pending outpatient dialysis arrangements by CM. Daily events: 05/11/2021. ID has been consulted and we will follow up HIV viral load, CD4 count and genotype. Follow-up LDH 1 3 beta D glucan. ID started Mepron to cover P MARTINEZ and avoiding Bactrim due to renal failure. We started steroids given the new hypoxia. ID also initiated ART with lamivudine, darunavir plus ritonavir and dolutegravir given the possibility of HIVAN. Consider pulmonary consultation. Nephrology following. Renal ultrasound shows signs of CKD. N ephrology to discuss hemodialysis initiation. Continue strict I's and O's daily and monitor renal function closely 05/12/2021. Patient is s/p placement of a right internal jugular tunneled cuffed hemodialysis catheter and initiation of hemodialysis on 05/11/2021. Patient is also undergo further hemodialysis today. CM consult to place patient at [place] [facility]. We will follow up HIV viral load, CD4 count and genotype. Follow-up LDH 1 3 beta D glucan. ID started Mepron to cover P MARTINEZ and avoiding Bactrim due to renal failure. ID also initiated ART with lamivudine, darunavir plus ritonavir and dolutegravir given the possibility of HIVAN. Continue steroids given the hypoxia. Respiratory status has significantly improved after hemodialysis. I believe volume overload was the most significantly contributing factor/etiology. Follow-up serial chest x-ray. Patient currently with 2 L nasal cannula satting at 99% 05/13/2021. Continue hemodialysis per nephrology recommendations. Await outpatient arrangements for hemodialysis unit. We will follow up HIV viral load, CD4 count and genotype. Follow-up LDH 1 3 beta D glucan. ID started Mepron to cover P MARTINEZ and avoiding Bactrim due to renal failure. ID also initiated ART with lamivudine, darunavir plus ritonavir and dolutegravir given the possibility of HIVAN. Continue steroids given the hypoxia and change from Solu-Medrol IV to dexamethasone. Procalcitonin level was elevated at 6. We will continue IV antibiotics per ID recommendations 05/14/2021. Continue hemodialysis per nephrology recommendations. Await out patient arrangements for hemodialysis unit. We will follow up HIV viral load, CD4 count and genotype. Follow-up LDH 1 3 beta D glucan. ID started Mepron to cover P MARTINEZ and avoiding Bactrim due to renal failure. ID also initiated ART with lamivudine, darunavir plus ritonavir and dolutegravir given the possibility of HIVAN. Continue dexamethasone. Patient to follow-up with health department in early May. Case management follow-up with regards to home ART before follow-up with the health department 05/15/2021. Continue hemodialysis per nephrology recommendations. Await outpatient arrangements for hemodialysis unit. Patient wants anxiety medication prior to dialysis. We will start Xanax 0.25 mg as needed. Continue lamivudine, darunavir plus ritonavir and dolutegravir given the possibility of HIVAN. Continue dexamethasone. Patient to follow-up with health department in early [facility]. Case management follow-up with regards to home ART before follow-up with the health department 05/16/2021. Continue hemodialysis per nephrology recommendations. Await outpatient arrangements for hemodialysis unit. Renal US showed CKD signs. Strict I&O's daily. Obtain daily weights. Continue Xanax prior to hemodialysis for anxiety. Continue lamivudine, darunavir plus ritonavir and dolutegravir given the possibility of HIVAN. Continue dexamethasone. Patient to follow-up with health department in early May. Patient with elevated diastolic BP greater than 100. We will start Procardia 30 mg twice daily. 05/17/2021. Patient to be initiated on MWF hemodialysis schedule. Patient requesting Xanax for, better prior to hemodialysis session. Await outpatient arrangements for hemodialysis unit per case management. Renal ultrasound revealed signs of chronic kidney disease. Continue strict I&O's daily. Obtain daily weights. Continue lamivudine, darunavir plus ritonavir and dolutegravir given the possibility of HIVAN. Continue dexamethasone. Patient to follow-up with health department in early May. Patient's BP much better controlled with the addition of Procardia. 05/18: Hemodialysis was discontinued yesterday after 1 hour if patient request as he was feeling weak with hypotension. BP remains low to 80s. Given NS bolus management this morning. Procardia discontinued. Bumex is on hold. Excellent urine. Still feeling weak. Remains anxious. Asking to be sedated during dialysis. CXR ordered daily Dr. Graves shows mild localized subcutaneous emphysema and right-sided neck pain currently dialysis catheter is placed. A CT chest showed diabetes mellitus with emphysema-like cough. Vascular surgery is addressing this. Sinus tachycardia stable. On room air without acute respite distress at rest. Discussed with the patient, nursing staff and vascular surgery. 05/19:Patient is feeling much better after undergoing hemodialysis for 3 hours today.Breathing much better. Mild subcutis emphysema in the right supraclavicular fossa seems stable. This is assisted by pulmonary in consultation and reevaluation by today. No acute intervention required, expected to resolve by itself. Looks more comfortable and less anxious. Remains on 3 L of O2. 05/20: No acute events. Remains on 3 L O2. Pneumomediastinum and subcutaneous emphysema stable. Bactrim changed from p.o. to IV. Sinus tach worse today and received Lopressor IV x1 dose. Discussed with ID. 05/21: No acute events, stable, awaiting outpatient dialysis arrangements for discharge. 05/22: Chronic anxiety, better. Since tachycardia stable. Remains on 2 to 3 days of O2. Stable for discharge pending outpatient dialysis arrangements. Discussed with CM. 05/23: Remains stable for discharge pending outpatient dialysis arrangements by CM. 05/24: Remains stable for discharge pending outpatient dialysis treatments with CM. History Interval history: Patient remains stable on 2 to 3 L O2. Afebrile. Sinus tachycardia stable. Anxiety better. Today, he feels better. He has no complaints, no acute events reported. Hospitalist Physical - Constitutional Vitals: Temp Pulse Resp BP Pulse Ox 98.9 F 107 H 20 144/105 97 05/24/21 18:45 05/24/21 18:45 05/24/21 18:45 05/24/21 18:45 05/24/21 18:45 General appearance: Present: no acute distress, cachectic, disheveled, other (Anxious) - EENT Eyes: Present: PERRL, EOM intact ENT: clear oral mucosa - Neck Neck: Present: supple, other (Mild subcutaneous emphysema in right supraclavicular fossa stable) - Respiratory Respiratory effort: normal Respiratory: bilateral: diminished, rales - Cardiovascular Rhythm: other (Sinus tachycardia, stable) - Extremities Extremities: No edema - Abdominal General gastrointestinal: soft, non-tender, non-distended - Psychiatric Psychiatric: other (Anxiety, better) - Neurologic Neurologic: no focal deficits, moves all extremities HEART Score - HEART Score Troponin: Troponin T 0.011 ng/mL (0.00-0.029) 05/19/21 06:50 Results - Labs CBC & Chem 7: 05/20/21 09:45 05/23/21 05:47 Labs: Laboratory Last Values WBC 9.8 K/mm3 (4.5-11.0) 05/20/21 09:45 WBC 9.8 K/mm3 (4.5-11.0) 05/20/21 09:45 RBC 2.78 M/mm3 (3.65-5.03) L 05/20/21 09:45 RBC 2.78 M/mm3 (3.65-5.03) L 05/20/21 09:45 Hgb 8.6 gm/dl (11.8-15.2) L 05/20/21 09:45 Hgb 8.6 gm/dl (11.8-15.2) L 05/20/21 09:45 Hct 26.4 % (35.5-45.6) L 05/20/21 09:45 Hct 26.4 % (35.5-45.6) L 05/20/21 09:45 MCV 95 fl (84-94) H 05/20/21 09:45 MCV 95 fl (84-94) H 05/20/21 09:45 MCH 31 pg (28-32) 05/20/21 09:45 MCH 31 pg (28-32) 05/20/21 09:45 MCHC 33 % (32-34) 05/20/21 09:45 MCHC 33 % (32-34) 05/20/21 09:45 RDW 14.9 % (13.2-15.2) 05/20/21 09:45 RDW 14.9 % (13.2-15.2) 05/20/21 09:45 Plt Count 377 K/mm3 (140-440) 05/20/21 09:45 Plt Count 377 K/mm3 (140-440) 05/20/21 09:45 Lymph % (Auto) Not Reportable 05/20/21 09:45 [place] % (Auto) Not Reportable 05/20/21 09:45 Eos % (Auto) Not Reportable 05/20/21 09:45 Baso % (Auto) Not Reportable 05/20/21 09:45 Lymph # (Auto) Not Reportable 05/20/21 09:45 [place] # (Auto) Not Reportable 05/20/21 09:45 Eos # (Auto) Not Reportable 05/20/21 09:45 Baso # (Auto) Not Reportable 05/20/21 09:45 Add Manual Diff Complete 05/20/21 09:45 Total Counted 100 05/20/21 09:45 Seg Neutrophils % Printer Machine 05/20/21 09:45 Seg Neuts % (Manual) 98.0 % (40.0-70.0) H 05/20/21 09:45 Band Neutrophils % 0 % 05/20/21 09:45 Lymphocytes % (Manual) 1.0 % (13.4-35.0) L 05/20/21 09:45 Reactive Lymphs % (Man) 0 % 05/20/21 09:45 Monocytes % (Manual) 1.0 % (0.0-7.3) 05/20/21 09:45 Eosinophils % (Manual) 0 % (0.0-4.3) 05/20/21 09:45 Basophils % (Manual) 0 % (0.0-1.8) 05/20/21 09:45 Metamyelocytes % 0 % 05/20/21 09:45 Myelocytes % 0 % 05/20/21 09:45 Promyelocytes % 0 % 05/20/21 09:45 Blast Cells % 0 % 05/20/21 09:45 Nucleated RBC % Not Reportable 05/20/21 09:45 Seg Neutrophils # Not Reportable 05/20/21 09:45 Seg Neutrophils # Man 9.6 K/mm3 (1.8-7.7) H 05/20/21 09:45 Band Neutrophils # 0.0 K/mm3 05/20/21 09:45 Abs Lymphs (Manual) 291 cells/uL (850-3900) L 05/10/21 17:09 Lymphocytes # (Manual) 0.1 K/mm3 (1.2-5.4) L 05/20/21 09:45 Abs React Lymphs (Man) 0.0 K/mm3 05/20/21 09:45 Monocytes # (Manual) 0.1 K/mm3 (0.0-0.8) 05/20/21 09:45 Eosinophils # (Manual) 0.0 K/mm3 (0.0-0.4) 05/20/21 09:45 Basophils # (Manual) 0.0 K/mm3 (0.0-0.1) 05/20/21 09:45 Metamyelocytes # 0.0 K/mm3 05/20/21 09:45 Myelocytes # 0.0 K/mm3 05/20/21 09:45 Promyelocytes # 0.0 K/mm3 05/20/21 09:45 Blast Cells # 0.0 K/mm3 05/20/21 09:45 WBC Morphology Not Reportable 05/20/21 09:45 Hypersegmented Neuts Rare 05/20/21 09:45 Hyposegmented Neuts Not Reportable 05/20/21 09:45 Hypogranular Neuts Not Reportable 05/20/21 09:45 Smudge Cells Not Reportable 05/20/21 09:45 Toxic Granulation 1+ 05/20/21 09:45 Toxic Vacuolation Not Reportable 05/20/21 09:45 Dohle Bodies Rare 05/20/21 09:45 Pelger-Huet Anomaly Not Reportable 05/20/21 09:45 Karishma Rods Not Reportable 05/20/21 09:45 Platelet Estimate Consistent w auto 05/20/21 09:45 Clumped Platelets Not Reportable 05/20/21 09:45 Plt Clumps, EDTA Not Reportable 05/20/21 09:45 Large Platelets Not Reportable 05/20/21 09:45 Giant Platelets Not Reportable 05/20/21 09:45 Platelet Satelliting Not Reportable 05/20/21 09:45 Plt Morphology Comment Not Reportable 05/20/21 09:45 RBC Morphology Not Reportable 05/20/21 09:45 Dimorphic RBCs Not Reportable 05/20/21 09:45 Polychromasia Not Reportable 05/20/21 09:45 Hypochromasia Not Reportable 05/20/21 09:45 Poikilocytosis Not Reportable 05/20/21 09:45 Anisocytosis 1+ 05/20/21 09:45 Microcytosis Not Reportable 05/20/21 09:45 Macrocytosis Not Reportable 05/20/21 09:45 Spherocytes Not Reportable 05/20/21 09:45 Pappenheimer Bodies Not Reportable 05/20/21 09:45 Sickle Cells Not Reportable 05/20/21 09:45 Target Cells Not Reportable 05/20/21 09:45 Tear Drop Cells Not Reportable 05/20/21 09:45 Ovalocytes Not Reportable 05/20/21 09:45 Helmet Cells Not Reportable 05/20/21 09:45 [place] Bodies Not Reportable 05/20/21 09:45 [place] Rings Not Reportable 05/20/21 09:45 Bernarda Cells Not Reportable 05/20/21 09:45 Bite Cells Not Reportable 05/20/21 09:45 Crenated Cell Not Reportable 05/20/21 09:45 Elliptocytes Not Reportable 05/20/21 09:45 Acanthocytes (Spur) Not Reportable 05/20/21 09:45 Rouleaux Not Reportable 05/20/21 09:45 Hemoglobin C Crystals Not Reportable 05/20/21 09:45 Schistocytes Not Reportable 05/20/21 09:45 Malaria parasites Not Reportable 05/20/21 09:45 Angus Bodies Not Reportable 05/20/21 09:45 Hem Pathologist Commnt No 05/20/21 09:45 D-Dimer 730.16 ng/mlDDU (0-234) H 05/10/21 09:45 Sodium 133 mmol/L (137-145) L 05/23/21 05:47 Potassium 3.4 mmol/L (3.6-5.0) L 05/23/21 05:47 Chloride 94.5 mmol/L (98-107) L 05/23/21 05:47 Carbon Dioxide 22 mmol/L (22-30) 05/23/21 05:47 Anion Gap 20 mmol/L 05/23/21 05:47 BUN 44 mg/dL (9-20) H 05/23/21 05:47 Creatinine 5.6 mg/dL (0.8-1.3) H 05/23/21 05:47 Estimated GFR 14 ml/min 05/23/21 05:47 BUN/Creatinine Ratio 8 % 05/23/21 05:47 Glucose 74 mg/dL (75-100) L 05/23/21 05:47 Lactic Acid 2.10 mmol/L (0.7-2.0) H* 05/11/21 09:53 Calcium 8.4 mg/dL (8.4-10.2) 05/23/21 05:47 Magnesium 2.30 mg/dL (1.7-2.3) 05/21/21 05:35 Ferritin 1426.0 ng/mL (30.0-300.0) H 05/10/21 09:45 Total Bilirubin 0.20 mg/dL (0.1-1.2) 05/20/21 09:45 AST 39 units/L (5-40) 05/20/21 09:45 ALT 35 units/L (7-56) 05/20/21 09:45 Alkaline Phosphatase 86 units/L (35-129) 05/20/21 09:45 Lactate Dehydrogenase 600 units/L (91-180) H 05/10/21 09:45 Lactate Dehydrogenase 623 units/L (91-180) H 05/10/21 09:45 Total Creatine Kinase 31 units/L (55-170) L 05/10/21 09:45 CK-MB (CK-2) < 1.0 ng/mL (0.0-4.0) 05/10/21 09:45 CK-MB (CK-2) Rel Index 3.2 (0-4) 05/10/21 09:45 Troponin T 0.011 ng/mL (0.00-0.029) 05/19/21 06:50 C-Reactive Protein 8.90 mg/dL (0.00-1.30) H 05/10/21 09:45 C-Reactive Protein 9.00 mg/dL (0.00-1.30) H 05/10/21 09:45 NT-Pro-B Natriuret Pep 4065 pg/mL (0-450) H 05/10/21 09:45 Total Protein 6.3 g/dL (6.3-8.2) 05/20/21 09:45 Albumin 2.6 g/dL (3.9-5) L 05/20/21 09:45 Albumin/Globulin Ratio 0.7 % 05/20/21 09:45 Procalcitonin 6.81 ng/mL (<0.15) 05/10/21 09:45 TSH 2.390 mlU/mL (0.270-4.200) 05/10/21 09:45 Free T4 0.94 ng/dL (0.76-1.46) 05/10/21 09:45 Urine Color Yellow (Yellow) 05/10/21 13:49 Urine Turbidity Clear (Clear) 05/10/21 13:49 Urine pH 8.0 (5.0-7.0) H 05/10/21 13:49 Ur Specific [place] 1.025 (1.003-1.030) 05/10/21 13:49 Urine Protein 100 mg/dl mg/dL (Negative) 05/10/21 13:49 Urine Glucose (UA) Negative mg/dL (Negative) 05/10/21 13:49 Urine Ketones Negative mg/dL (Negative) 05/10/21 13:49 Urine Blood Negative (Negative) 05/10/21 13:49 Urine Nitrite Negative (Negative) 05/10/21 13:49 Ur Reducing Substances Not Reportable 05/10/21 13:49 Urine Bilirubin Negative (Negative) 05/10/21 13:49 Urine Ictotest Not Reportable 05/10/21 13:49 Urine Urobilinogen 0.0 mg/dL (<2.0) 05/10/21 13:49 Ur Leukocyte Esterase Negative (Negative) 05/10/21 13:49 Urine WBC (Auto) 2.0 /HPF (0.0-6.0) 05/10/21 13:49 Urine RBC (Auto) < 1.0 /HPF (0.0-6.0) 05/10/21 13:49 U Epithel Cells (Auto) 1.0 /HPF (0-13.0) 05/10/21 13:49 Lymph Enumerat CD4/CD8 0.00 (0.86-5.00) L 05/10/21 17:09 % CD3 Cells 78 % (57-85) 05/10/21 17:09 Absolute CD3 Count 228 cells/uL (840-3060) L 05/10/21 17:09 % CD4 Cells 0 % (30-61) L 05/10/21 17:09 Absolute CD4 Count 0 cells/uL (490-1740) L 05/10/21 17:09 % CD8 Cells 78 % (12-42) H 05/10/21 17:09 Absolute CD8 Count 239 cells/uL (180-1170) 05/10/21 17:09 % CD19 Cells 1 % (6-29) L 05/10/21 17:09 Absolute CD19 Count 2 cells/uL (110-660) L 05/10/21 17:09 Coronavirus (PCR) Positive (Negative) A 05/24/21 10:50 Hepatitis A IgM Ab Non-reactive (NonReactive) 05/11/21 09:53 Hep Bs Antigen Non-reactive (Negative) 05/11/21 09:53 Hep B Core IgM Ab Non-reactive (NonReactive) 05/11/21 09:53 Hepatitis C Antibody Non-reactive (NonReactive) 05/11/21 09:53 HIV-1 RNA PCR copies/ml 65038 Copies/mL H 05/10/21 17:09 HIV-1 RNA (PCR) log 4.71 Log cps/mL H 05/10/21 17:09 HIV-1 Genotyping Detected H 05/11/21 09:53 Miscellaneous Test Flexitest 1 H 05/11/21 12:41 Krishnan/IV: Voiding Method Bedpan Active Medications - Current Medications Current Medications: Generic Name Dose Route Start Last Admin Trade Name Freq PRN Reason Stop Dose Admin Acetaminophen 650 mg 05/10/21 11:26 05/20/21 09:00 Acetaminophen 325 Mg Tab PO 650 mg Q4H PRN Administration Pain MILD(1-3)/Fever >100.5/LANGLEY Albuterol 2.5 mg 05/10/21 11:26 05/21/21 20:05 Albuterol 2.5 Mg/3 Ml Nebu IH 2.5 mg Q4HRT PRN Administration Shortness Of Breath Alprazolam 0.25 mg 05/15/21 09:38 05/24/21 08:36 Alprazolam 0.25 Mg Tab PO 0.25 mg DAILY PRN Administration Anxiety Ascorbic Acid 500 mg 05/10/21 22:00 05/24/21 13:17 Ascorbic Acid 500 Mg Tab PO 500 mg BID SANTOS Administration Bumetanide 1 mg 05/20/21 22:00 05/24/21 12:49 Bumetanide 1 Mg/4 Ml Inj IV Not Given BID [facility] Cholecalciferol 1,000 unit 05/21/21 12:00 05/24/21 13:51 Cholecalciferol (Vit D3) 1000 Unit (25 Mcg) Tab PO Not Given QDAY [facility] Darunavir 800 mg 05/10/21 14:45 05/24/21 13:18 Darunavir 800 Mg Tab PO 800 mg QDAY SANTOS Administration Dolutegravir Sodium 50 mg 05/10/21 15:00 05/24/21 13:18 Dolutegravir 50 Mg Tab PO 50 mg QDAY SANTOS Administration Fluconazole 200 mg 05/19/21 19:00 05/24/21 13:18 Fluconazole 200 Mg Tab PO 06/08/21 10:01 200 mg QDAY SANTOS Administration Protocol Heparin Sodium (Porcine) 5,000 unit 05/10/21 22:00 05/24/21 12:49 Heparin 5,000 Unit/1 Ml Vial SUB-Q Not Given Q12HR [facility] Hydralazine HCl 10 mg 05/23/21 21:30 05/24/21 05:50 Hydralazine 20 Mg/1 Ml Inj IV 10 mg Q4HR PRN Administration Blood Pressure Sodium Chloride 100 mls @ 999 mls/hr 05/13/21 13:10 Nacl 0.9% IV TRENT PRN Hypotension Trimethoprim/Sulfamethoxazole 158.125 mls @ 105.417 mls/hr 05/20/21 16:00 05/24/21 19:03 130 mg/ Dextrose/ IV 105.417 mls/hr Miscellaneous Information Q8H SANTOS Administration Lamivudine 100 mg 05/10/21 15:00 05/24/21 13:19 Lamivudine 50 Mg/5 Ml Oral Liqd PO 100 mg DAILY SANTOS Administration Metoprolol Succinate 25 mg 05/22/21 11:00 05/24/21 13:17 Metoprolol Succinate Xl 25 Mg Tab PO 25 mg QDAY SANTOS Administration Multivitamins/Minerals 1 each 05/11/21 10:00 05/24/21 13:51 Multivitamins,Ther W-Minerals Tab PO Not Given QDAY [facility] Ondansetron HCl 4 mg 05/10/21 11:26 05/20/21 12:16 Ondansetron 4 Mg/2 Ml Inj IV 4 mg Q8H PRN Administration Nausea And Vomiting Prednisone 30 mg 05/15/21 10:00 05/24/21 13:23 Prednisone 10 Mg Tab PO 30 mg QDAY SANTOS Administration Ritonavir 100 mg 05/10/21 15:00 05/24/21 13:18 Ritonavir 100 Mg Tab PO 100 mg QDAY SANTOS Administration Sodium Bicarbonate 1,300 mg 05/10/21 14:00 05/24/21 13:53 Sodium Bicarbonate 650 Mg Tab PO 1,300 mg TID SANTOS Administration Sodium Chloride 10 ml 05/10/21 22:00 05/24/21 13:20 Sodium Chloride 0.9% 10 Ml Flush Syringe IV 10 ml BID SANTOS Administration Sodium Chloride 10 ml 05/10/21 11:26 Sodium Chloride 0.9% 10 Ml Flush Syringe IV PRN PRN LINE FLUSH Zinc Sulfate 220 mg 05/10/21 22:00 05/24/21 13:17 Zinc Sulfate 220 Mg Cap PO 220 mg BID SANTOS Administration Zolpidem Tartrate 5 mg 05/22/21 22:00 05/23/21 21:17 Zolpidem 5 Mg Tab PO 5 mg QHS PRN Administration Sleep Nutrition/Malnutrition Assess - Dietary Evaluation Nutrition/Malnutrition Findings: Nutrition Notes Start: 05/11/21 1 2:44 Freq: Status: Active Protocol: Document 05/21/21 17:00 DALY (Rec: 05/21/21 17:33 DALY [email or web address]) Nutrition Notes Initial or Follow up Reassessment Current Diagnosis Acute Kidney Injury,CKD (stage V CKD),Sepsis,Respiratory Failure,Malnutrition Other Pertinent Diagnosis COVID-19/Pneumonia, BILLIE/CKD/ ESRD+HD, HIV/Nephropathy/AIDS, Esophagitis ... Current Diet Renal Diet (since D 05/14), D Suppl (since D 05/14). Labs/Tests 05/21: Na 130, Cl 88.4, BUN 69 , Crea 6.6, Glu 137. Pertinent Medications 05/21: nutritionally unremarkable. Height 6 ft 2 in Weight 55.3 kg [place] Body Weight (kg) 86.36 BMI 15.6 Weight change and time frame 0.5 Kg body weight loss in 1 week reported. Weight Status Underweight Subjective/Other Information RD consult for Dietary advancement, % intake of meals , and body weight change. Pt continues on Renal Diet and Nepro ONS TID, and receiving PBJ sandwichwes on each meal. Pt's PO intake of meals has been Poor (25%), according to ADL notes. 0.5 Kg body weight loss in 1 week reported. Percent of energy/protein needs met: Prescribed Renal Diet provides for energy/protein needs (2, 072 Kcal/77 g) during LOS; additionally, Dietary Supplements will compensate for possible poor or insufficient PO intake of meals with 1,275 Kcal and 57 g of protein. Burn Absent Trauma Absent GI Symptoms None Food Allergy No Skin Integrity/Comment Redness, Dryness. Current % PO Poor (25-49%) Minimum of two criteria Yes #1 Nutrition Diagnosis Underweight Diagnosis Progress(for reassessment Continues documentation) Is patient on ventilator? No Is Patient Ambulatory and/or Out of Bed Yes [facility] [ 1991.575 [id number]] Calculation Used for Recommendations [facility] Additional Notes Protein: >1.2 g/Kg; >67 g/day. Fluids: 1 ml/Kcal, or as per MD. Nutrition Intervention Change Diet Order: Continue Renal Diet and Pt's Preferred food items. Add Supplement/Snack (indicate name/kcal Continue 8 fl oz Nepro w/ /protein ) CARBSTEADY; TID. Provides kCal: 1,275 Provides Protein (gm) 57 Goal #1 Compensate, through dietary supplementation, for possible poor or insufficient PO intake of meals during LOS. Goal #2 Maintain body weight within +/ -3% of admission body weight during LOS. Follow-Up By: 05/28/21 Additional Comments Continue monitoring food tolerance, %PO intake of meals , and BM.
[2021-05-24] MEDS: ZOLPIDEM 5 MG TAB PO PRN (22:09)
[2021-05-25] MEDS: DEXTROSE 5% IV SCH ×4 (01:19→23:49)
[2021-05-25] MEDS: WATER IV SCH ×4 (01:19→23:49)
[2021-05-25] MEDS: SMX IV SCH ×4 (01:19→23:49)
[2021-05-25] MEDS: TMP IV SCH ×4 (01:19→23:49)
[2021-05-25 06:19] LABS: Hematocrit 23.5 % (35.5-45.6); Hemoglobin 7.5 gm/dl (11.8-15.2); Mean Corpuscular HGB Conc 32 % (32-34); Mean Corpuscular Volume 96 fl (84-94); Platelet Count 278 K/mm3 (140-440); Red Blood Count 2.45 M/mm3 (3.65-5.03); Red Cell Distribution Width 17.5 % (13.2-15.2)
[2021-05-25 06:24] LABS: Alanine Aminotransferase 31 units/L (7-56); Albumin 2.6 g/dL (3.9-5); Blood Urea Nitrogen 38 mg/dL (9-20); Calcium 8.6 mg/dL (8.4-10.2); Hemolysis Index 2
[2021-05-25 06:25] LABS: BUN/Creatinine Ratio 8
[2021-05-25 07:01] LABS: Basophils % (Manual) 0 % (0.0-1.8); Eosinophils % (Manual) 0 % (0.0-4.3); Total Cells Counted 100
[2021-05-25 07:02] LABS: Anisocytosis 1+
[2021-05-25 07:04] LABS: Dohle Bodies Rare; Platelet Estimate Consistent w Auto
[2021-05-25] MEDS: SODIUM BICARBONATE 650 MG TAB PO SCH ×3 (08:45→21:49)
[2021-05-25] MEDS: guaiFENesin 100 MG/5 ML ORAL LIQD PO PRN ×2 (08:45→15:39)
--- NOTE | 2021-05-25 09:00 | Progress Note ---
Assessment and Plan Assessment and plan: 40-year-old male who was recently hospitalized and discharged earlier this month with a new diagnosis of HIV and suspected AIDS with associated renal dysfunction. Patient was also noted to have a diagnosis of COVID-19 pneumonia during that admission but not hypoxic at that time. Patient was recommended for outpatient follow-up with [facility]. 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 HIV associated nephropathy Accelerated hypertension Acute renal failure. COVID-19. Patient initially tested + 04/24/2021 but not a candidate for remdesivir. Acute hypoxic respiratory failure. Etiology secondary to Covid versus renal failure versus PCP pneumonia. 05/11/2021. ID has been consulted and we will follow up HIV viral load, CD4 count and genotype. Follow-up LDH 1 3 beta D glucan. ID started Mepron to cover P MARTINEZ and avoiding Bactrim due to renal failure. We started steroids given the new hypoxia. ID also initiated ART with lamivudine, darunavir plus ritonavir and dolutegravir given the possibility of HIVAN. Consider pulmonary consultation. Nephrology following. Renal ultrasound shows signs of CKD. Nephrology to discuss hemodialysis initiation. Continue strict I's and O's daily and monitor renal function closely 05/12/2021. Patient is s/p placement of a right internal jugular tunneled cuffed hemodialysis catheter and initiation of hemodialysis on 05/11/2021. Patient is also undergo further hemodialysis today. CM consult to place patient at [place] [facility]. We will follow up HIV viral load, CD4 count and genotype. Follow-up LDH 1 3 beta D glucan. ID started Mepron to cover P MARTINEZ and avoiding Bactrim due to renal failure. ID also initiated ART with lamivudine, darunavir plus ritonavir and dolutegravir given the possibility of HIVAN. Continue steroids given the hypoxia. Respiratory status has significantly improved after hemodialysis. I believe volume overload was the most significantly contributing factor/etiology. Follow-up serial chest x-ray. Patient currently with 2 L nasal cannula satting at 99% 05/13/2021. Continue hemodialysis per nephrology recommendations. Await outpatient arrangements for hemodialysis unit. We will follow up HIV viral load, CD4 count and genotype. Follow-up LDH 1 3 beta D glucan. ID started Mepron to cover P MARTINEZ and avoiding Bactrim due to renal failure. ID also initiated ART with lamivudine, darunavir plus ritonavir and dolutegravir given the possibility of HIVAN. Continue steroids given the hypoxia and change from Solu-Medrol IV to dexamethasone. Procalcitonin level was elevated at 6. We will continue IV antibiotics per ID recommendations 05/14/2021. Continue hemodialysis per nephrology recommendations. Await outpatient arrangements for hemodialysis unit. We will follow up HIV viral load, CD4 count and genotype. Follow-up LDH 1 3 beta D glucan. ID started Mepron to cover P MARTINEZ and avoiding Bactrim due to renal failure. ID also initiated ART with lamivudine, darunavir plus ritonavir and dolutegravir given the possibility of HIVAN. Continue dexamethasone. [facility] to [facility] early May. Case management follow-up with regards to home ART before follow-up with the health department 05/15/2021. Continue hemodialysis per nephrology recommendations. Await outpatient arrangements for hemodialysis unit. Patient wants anxiety medication prior to dialysis. We will start Xanax 0.25 mg as needed. Continue lamivudine, darunavir plus ritonavir and dolutegravir given the possibility of HIVAN. Continue dexamethasone. Patient to follow-up with health department in early May. Case management follow-up with regards to home ART before follow-up with the health department 05/16/2021. Continue hemodialysis per nephrology recommendations. Await outpa tient arrangements for hemodialysis unit. Renal US showed CKD signs. Strict I&O's daily. Obtain daily weights. Continue Xanax prior to hemodialysis for anxiety. Continue lamivudine, darunavir plus ritonavir and dolutegravir given the possibility of HIVAN. Continue dexamethasone. Patient to follow-up with health department in early May. Patient with elevated diastolic BP greater than 100. We will start Procardia 30 mg twice daily. 05/17/2021. Patient to be initiated on MWF hemodialysis schedule. Patient requesting Xanax for anxiety prior to hemodialysis session. Await outpatient a rrangements for hemodialysis unit per case management. Renal ultrasound revealed signs of chronic kidney disease. Continue strict I&O's daily. Obtain daily weights. Continue lamivudine, darunavir plus ritonavir and dolutegravir given the possibility of HIVAN. Continue dexamethasone. Patient to follow-up with health department in early May. Patient's BP much better controlled with the addition of Procardia. 05/18: Hemodialysis was discontinued yesterday after 1 hour if patient request as he was feeling weak with hypotension. BP remains low to 80s. Given NS bolus management this morning. Procardia discontinued. Bumex is on hold. Excellent urine. Still feeling weak. Remains anxious. Asking to be sedated during dialysis. CXR ordered daily Dr. Graves shows mild localized subcutaneous emphysema and right-sided neck pain currently dialysis catheter is placed. A CT chest showed diabetes mellitus with emphysema-like cough. Vascular surgery is addressing this. Sinus tachycardia stable. On room air without acute respite distress at rest. Discussed with the patient, nursing staff and vascular surgery. 05/19:Patient is feeling much better after undergoing hemodialysis for 3 hours today.Breathing much better. Mild subcutis emphysema in the right supraclavicular fossa seems stable. This is assisted by pulmonary in consultation and reevaluation by today. No acute intervention required, expected to resolve by itself. Looks more comfortable and less anxious. R emains on 3 L of O2. 05/20: No acute events. Remains on 3 L O2. Pneumomediastinum and subcutaneous emphysema stable. Bactrim changed from p.o. to IV. Sinus tach worse today and received Lopressor IV x1 dose. Discussed with ID. 05/21: No acute events, stable, awaiting outpatient dialysis arrangements for discharge. 05/22: Chronic anxiety, better. Since tachycardia stable. Remains on 2 to 3 d ays of O2. Stable for discharge pending outpatient dialysis arrangements. Discussed with CM. 05/23: Remains stable for discharge pending outpatient dialysis arrangements by CM. 05/24: Remains stable for discharge pending outpatient dialysis treatments with CM. : Remains stable for discharge pending outpatient dialysis treatments with CM. Continue IV Bactrim per ID recommendations to complete a total of 21 days. Patient should also have tapering steroids over the next 21 days. ART was started on 05/10/2021. Continue fluconazole 200 mg every 24 hours x3 weeks History Interval history: No new issues overnight Hospitalist Physical - Constitutional Vitals: Temp Pulse Resp BP Pulse Ox 98.3 F 102 H 18 148/102 94 05/25/21 05:01 05/25/21 05:01 05/25/21 05:01 05/25/21 05:01 05/25/21 05:01 General appearance: Present: no acute distress, cachectic, disheveled, other (Anxious) - EENT Eyes: Present: PERRL, EOM intact ENT: hearing intact, clear oral mucosa, dentition normal - Neck Neck: Present: supple, normal ROM - Respiratory Respiratory effort: normal Respiratory: bilateral: CTA - Cardiovascular Rhythm: regular Heart Sounds: Present: S1 & S2. Absent: gallop, rub - Extremities Extremities: no ischemia, No edema, Full ROM - Abdominal General gastrointestinal: soft, non-tender, non-distended, normal bowel sounds - Integumentary Integumentary: Present: clear, warm, dry - Neurologic Neurologic: CNII-XII intact, moves all extremities HEART Score - HEART Score Troponin: Troponin T 0.011 ng/mL (0.00-0.029) 05/19/21 06:50 Results - Labs CBC & Chem 7: 05/25/21 05:36 05/25/21 05:36 Labs: Laboratory Last Values WBC 4.5 K/mm3 (4.5-11.0) 05/25/21 05:36 RBC 2.45 M/mm3 (3.65-5.03) L 05/25/21 05:36 Hgb 7.5 gm/dl (11.8-15.2) L 05/25/21 05:36 Hct 23.5 % (35.5-45.6) L 05/25/21 05:36 MCV 96 fl (84-94) H 05/25/21 05:36 MCH 31 pg (28-32) 05/25/21 05:36 MCHC 32 % (32-34) 05/25/21 05:36 RDW 17.5 % (13.2-15.2) H 05/25/21 05:36 Plt Count 278 K/mm3 (140-440) 05/25/21 05:36 Lymph % (Auto) Not Reportable 05/20/21 09:45 Mcmullen % (Auto) Not Reportable 05/20/21 09:45 Eos % (Auto) Not Reportable 05/20/21 09:45 Baso % (Auto) Not Reportable 05/20/21 09:45 Lymph # (Auto) Not Reportable 05/20/21 09:45 Mcmullen # (Auto) Not Reportable 05/20/21 09:45 Eos # (Auto) Not Reportable 05/20/21 09:45 Baso # (Auto) Not Reportable 05/20/21 09:45 Add Manual Diff Complete 05/25/21 05:36 Total Counted 100 05/25/21 05:36 Seg Neutrophils % [employer] Sales[employer] 05/20/21 09:45 Seg Neuts % (Manual) 91.0 % (40.0-70.0) H 05/25/21 05:36 Band Neutrophils % 0 % 05/25/21 05:36 Lymphocytes % (Manual) 5.0 % (13.4-35.0) L 05/25/21 05:36 Reactive Lymphs % (Man) 0 % 05/25/21 05:36 Monocytes % (Manual) 4.0 % (0.0-7.3) 05/25/21 05:36 Eosinophils % (Manual) 0 % (0.0-4.3) 05/25/21 05:36 Basophils % (Manual) 0 % (0.0-1.8) 05/25/21 05:36 Metamyelocytes % 0 % 05/25/21 05:36 Myelocytes % 0 % 05/25/21 05:36 Promyelocytes % 0 % 05/25/21 05:36 Blast Cells % 0 % 05/25/21 05:36 Nucleated RBC % Not Reportable 05/25/21 05:36 Seg Neutrophils # Not Reportable 05/20/21 09:45 Seg Neutrophils # Man 4.1 K/mm3 (1.8-7.7) 05/25/21 05:36 Band Neutrophils # 0.0 K/mm3 05/25/21 05:36 Abs Lymphs (Manual) 291 cells/uL (850-3900) L 05/10/21 17:09 Lymphocytes # (Manual) 0.2 K/mm3 (1.2-5.4) L 05/25/21 05:36 Abs React Lymphs (Man) 0.0 K/mm3 05/25/21 05:36 Monocytes # (Manual) 0.2 K/mm3 (0.0-0.8) 05/25/21 05:36 Eosinophils # (Manual) 0.0 K/mm3 (0.0-0.4) 05/25/21 05:36 Basophils # (Manual) 0.0 K/mm3 (0.0-0.1) 05/25/21 05:36 Metamyelocytes # 0.0 K/mm3 05/25/21 05:36 Myelocytes # 0.0 K/mm3 05/25/21 05:36 Promyelocytes # 0.0 K/mm3 05/25/21 05:36 Blast Cells # 0.0 K/mm3 05/25/21 05:36 WBC Morphology Not Reportable 05/25/21 05:36 Hypersegmented Neuts Not Reportable 05/25/21 05:36 Hyposegmented Neuts Not Reportable 05/25/21 05:36 Hypogranular Neuts Not Reportable 05/25/21 05:36 Smudge Cells Not Reportable 05/25/21 05:36 Toxic Granulation Not Reportable 05/25/21 05:36 Toxic Vacuolation Not Reportable 05/25/21 05:36 Dohle Bodies Rare 05/25/21 05:36 Pelger-Huet Anomaly Not Reportable 05/25/21 05:36 Karishma Rods Not Reportable 05/25/21 05:36 Platelet Estimate Consistent w auto 05/25/21 05:36 Clumped Platelets Not Reportable 05/25/21 05:36 Plt Clumps, EDTA Not Reportable 05/25/21 05:36 Large Platelets Not Reportable 05/25/21 05:36 Giant Platelets Not Reportable 05/25/21 05:36 Platelet Satelliting Not Reportable 05/25/21 05:36 Plt Morphology Comment Not Reportable 05/25/21 05:36 RBC Morphology Not Reportable 05/25/21 05:36 Dimorphic RBCs Not Reportable 05/25/21 05:36 Polychromasia Not Reportable 05/25/21 05:36 Hypochromasia Not Reportable 05/25/21 05:36 Poikilocytosis Not Reportable 05/25/21 05:36 Anisocytosis 1+ 05/25/21 05:36 Microcytosis Not Reportable 05/25/21 05:36 Macrocytosis Not Reportable 05/25/21 05:36 Spherocytes Not Reportable 05/25/21 05:36 Pappenheimer Bodies Not Reportable 05/25/21 05:36 Sickle Cells Not Reportable 05/25/21 05:36 Target Cells Not Reportable 05/25/21 05:36 Tear Drop Cells Not Reportable 05/25/21 05:36 Ovalocytes Not Reportable 05/25/21 05:36 Helmet Cells Not Reportable 05/25/21 05:36 Bragg-Corbin Bodies Not Reportable 05/25/21 05:36 [place] Rings Not Reportable 05/25/21 05:36 [place] Cells Not Reportable 05/25/21 05:36 Bite Cells Not Reportable 05/25/21 05:36 Crenated Cell Not Reportable 05/25/21 05:36 Elliptocytes Not Reportable 05/25/21 05:36 Acanthocytes (Spur) Not Reportable 05/25/21 05:36 Rouleaux Not Reportable 05/25/21 05:36 Hemoglobin C Crystals Not Reportable 05/25/21 05:36 Schistocytes Not Reportable 05/25/21 05:36 Malaria parasites Not Reportable 05/25/21 05:36 Angus Bodies Not Reportable 05/25/21 05:36 Hem Pathologist Commnt No 05/25/21 05:36 D-Dimer 730.16 ng/mlDDU (0-234) H 05/10/21 09:45 Sodium 135 mmol/L (137-145) L 05/25/21 05:36 Potassium 3.4 mmol/L (3.6-5.0) L 05/25/21 05:36 Chloride 97.7 mmol/L (98-107) L 05/25/21 05:36 Carbon Dioxide 23 mmol/L (22-30) 05/25/21 05:36 Anion Gap 18 mmol/L 05/25/21 05:36 BUN 38 mg/dL (9-20) H 05/25/21 05:36 Creatinine 4.6 mg/dL (0.8-1.3) H 05/25/21 05:36 Estimated GFR 17 ml/min 05/25/21 05:36 BUN/Creatinine Ratio 8 % 05/25/21 05:36 Glucose 113 mg/dL (75-100) H 05/25/21 05:36 Lactic Acid 2.10 mmol/L (0.7-2.0) H* 05/11/21 09:53 Calcium 8.6 mg/dL (8.4-10.2) 05/25/21 05:36 Magnesium 1.60 mg/dL (1.7-2.3) L 05/25/21 05:36 Ferritin 1426.0 ng/mL (30.0-300.0) H 05/10/21 09:45 Total Bilirubin < 0.20 mg/dL (0.1-1.2) 05/25/21 05:36 AST 33 units/L (5-40) 05/25/21 05:36 ALT 31 units/L (7-56) 05/25/21 05:36 Alkaline Phosphatase 85 units/L (35-129) 05/25/21 05:36 Lactate Dehydrogenase 600 units/L (91-180) H 05/10/21 09:45 Lactate Dehydrogenase 623 units/L (91-180) H 05/10/21 09:45 Total Creatine Kinase 31 units/L (55-170) L 05/10/21 09:45 CK-MB (CK-2) < 1.0 ng/mL (0.0-4.0) 05/10/21 09:45 CK-MB (CK-2) Rel Index 3.2 (0-4) 05/10/21 09:45 Troponin T 0.011 ng/mL (0.00-0.029) 05/19/21 06:50 C-Reactive Protein 8.90 mg/dL (0.00-1.30) H 05/10/21 09:45 C-Reactive Protein 9.00 mg/dL (0.00-1.30) H 05/10/21 09:45 NT-Pro-B Natriuret Pep 4065 pg/mL (0-450) H 05/10/21 09:45 Total Protein 6.6 g/dL (6.3-8.2) 05/25/21 05:36 Albumin 2.6 g/dL (3.9-5) L 05/25/21 05:36 Albumin/Globulin Ratio 0.7 % 05/25/21 05:36 Procalcitonin 6.81 ng/mL (<0.15) 05/10/21 09:45 TSH 2.390 mlU/mL (0.270-4.200) 05/10/21 09:45 Free T4 0.94 ng/dL (0.76-1.46) 05/10/21 09:45 Urine Color Yellow (Yellow) 05/10/21 13:49 Urine Turbidity Clear (Clear) 05/10/21 13:49 Urine pH 8.0 (5.0-7.0) H 05/10/21 13:49 Ur Specific Taylor 1.025 (1.003-1.030) 05/10/21 13:49 Urine Protein 100 mg/dl mg/dL (Negative) 05/10/21 13:49 Urine Glucose (UA) Negative mg/dL (Negative) 05/10/21 13:49 Urine Ketones Negative mg/dL (Negative) 05/10/21 13:49 Urine Blood Negative (Negative) 05/10/21 13:49 Urine Nitrite Negative (Negative) 05/10/21 13:49 Ur Reducing Substances Not Reportable 05/10/21 13:49 Urine Bilirubin Negative (Negative) 05/10/21 13:49 Urine Ictotest Not Reportable 05/10/21 13:49 Urine Urobilinogen 0.0 mg/dL (<2.0) 05/10/21 13:49 Ur Leukocyte Esterase Negative (Negative) 05/10/21 13:49 Urine WBC (Auto) 2.0 /HPF (0.0-6.0) 05/10/21 13:49 Urine RBC (Auto) < 1.0 /HPF (0.0-6.0) 05/10/21 13:49 U Epithel Cells (Auto) 1.0 /HPF (0-13.0) 05/10/21 13:49 Lymph Enumerat CD4/CD8 0.00 (0.86-5.00) L 05/10/21 17:09 % CD3 Cells 78 % (57-85) 05/10/21 17:09 Absolute CD3 Count 228 cells/uL (840-3060) L 05/10/21 17:09 % CD4 Cells 0 % (30-61) L 05/10/21 17:09 Absolute CD4 Count 0 cells/uL (490-1740) L 05/10/21 17:09 % CD8 Cells 78 % (12-42) H 05/10/21 17:09 Absolute CD8 Count 239 cells/uL (180-1170) 05/10/21 17:09 % CD19 Cells 1 % (6-29) L 05/10/21 17:09 Absolute CD19 Count 2 cells/uL (110-660) L 05/10/21 17:09 Coronavirus (PCR) Positive (Negative) A 05/24/21 10:50 Hepatitis A IgM Ab Non-reactive (NonReactive) 05/11/21 09:53 Hep Bs Antigen Non-reactive (Negative) 05/11/21 09:53 Hep B Core IgM Ab Non-reactive (NonReactive) 05/11/21 09:53 Hepatitis C Antibody Non-reactive (NonReactive) 05/11/21 09:53 HIV-1 RNA PCR copies/ml 40499 Copies/mL H 05/10/21 17:09 HIV-1 RNA (PCR) log 4.71 Log cps/mL H 05/10/21 17:09 HIV-1 Genotyping Detected H 05/11/21 09:53 Miscellaneous Test Flexitest 1 H 05/11/21 12:41 Krishnan/IV: Voiding Method Bedpan Active Medications - Current Medications Current Medications: Generic Name Dose Route Start Last Admin Trade Name Freq PRN Reason Stop Dose Admin Acetaminophen 650 mg 05/10/21 11:26 05/20/21 09:00 Acetaminophen 325 Mg Tab PO 650 mg Q4H PRN Administration Pain MILD(1-3)/Fever >100.5/LANGLEY Albuterol 2.5 mg 05/10/21 11:26 05/21/21 20:05 Albuterol 2.5 Mg/3 Ml Nebu IH 2.5 mg Q4HRT PRN Administration Shortness Of Breath Alprazolam 0.25 mg 05/15/21 09:38 05/24/21 08:36 Alprazolam 0.25 Mg Tab PO 0.25 mg DAILY PRN Administration Anxiety Ascorbic Acid 500 mg 05/10/21 22:00 05/24/21 22:09 Ascorbic Acid 500 Mg Tab PO 500 mg BID SANTOS Administration Bumetanide 1 mg 05/20/21 22:00 05/24/21 22:09 Bumetanide 1 Mg/4 Ml Inj IV 1 mg BID SANTOS Administration Cholecalciferol 1,000 unit 05/21/21 12:00 05/24/21 13:51 Cholecalciferol (Vit D3) 1000 Unit (25 Mcg) Tab PO Not Given QDAY SANTOS Darunavir 800 mg 05/10/21 14:45 05/24/21 13:18 Darunavir 800 Mg Tab PO 800 mg QDAY SANTOS Administration Dolutegravir Sodium 50 mg 05/10/21 15:00 05/24/21 13:18 Dolutegravir 50 Mg Tab PO 50 mg QDAY SANTOS Administration Fluconazole 200 mg 05/19/21 19:00 05/24/21 13:18 Fluconazole 200 Mg Tab PO 06/08/21 10:01 200 mg QDAY SANTOS Administration Protocol Guaifenesin 200 mg 05/25/21 08:25 05/25/21 08:45 Guaifenesin 100 Mg/5 Ml Oral Liqd PO 200 mg Q4H PRN Administration Cough Heparin Sodium (Porcine) 5,000 unit 05/10/21 22:00 05/24/21 22:07 Heparin 5,000 Unit/1 Ml Vial SUB-Q 5,000 unit Q12HR SANTOS Administration Hydralazine HCl 10 mg 05/23/21 21:30 05/24/21 05:50 Hydralazine 20 Mg/1 Ml Inj IV 10 mg Q4HR PRN Administration Blood Pressure Sodium Chloride 100 mls @ 999 mls/hr 05/13/21 13:10 Nacl 0.9% IV TRENT PRN Hypotension Trimethoprim/Sulfamethoxazole 158.125 mls @ 105.417 mls/hr 05/20/21 16:00 05/25/21 08:00 130 mg/ Dextrose/ IV 05/26/21 02:59 105.417 mls/hr Miscellaneous Information Q8H SANTOS Administration Lamivudine 100 mg 05/10/21 15:00 05/24/21 13:19 Lamivudine 50 Mg/5 Ml Oral Liqd PO 100 mg DAILY SANTOS Administration Metoprolol Succinate 25 mg 05/22/21 11:00 05/24/21 13:17 Metoprolol Succinate Xl 25 Mg Tab PO 25 mg QDAY [facility] Administration Multivitamins/Minerals 1 each 05/11/21 10:00 05/24/21 13:51 Multivitamins,Ther W-Minerals Tab PO Not Given QDAY [facility] Ondansetron HCl 4 mg 05/10/21 11:26 05/20/21 12:16 Ondansetron 4 Mg/2 Ml Inj IV 4 mg Q8H PRN Administration Nausea And Vomiting Prednisone 30 mg 05/15/21 10:00 05/24/21 13:23 Prednisone 10 Mg Tab PO 30 mg QDAY [facility] Administration Ritonavir 100 mg 05/10/21 15:00 05/24/21 13:18 Ritonavir 100 Mg Tab PO 100 mg QDAY SANTOS Administration Sodium Bicarbonate 1,300 mg 05/10/21 14:00 05/25/21 08:45 Sodium Bicarbonate 650 Mg Tab PO 1,300 mg TID SANTOS Administration Sodium Chloride 10 ml 05/10/21 22:00 05/24/21 22:08 Sodium Chloride 0.9% 10 Ml Flush Syringe IV 10 ml BID SANTOS Administration Sodium Chloride 10 ml 05/10/21 11:26 Sodium Chloride 0.9% 10 Ml Flush Syringe IV PRN PRN LINE FLUSH Trimethoprim/Sulfamethoxazole 1 each 05/26/21 10:00 Sulfamethoxazole/Trimethoprim 800/160mg Ds Tab PO 06/03/21 23:59 Q12HR SANTOS Protocol Trimethoprim/Sulfamethoxazole 0.5 each 06/04/21 22:00 Sulfamethoxazole/Trimethoprim 800/160mg Ds Tab PO MoWeFr SANTOS Zinc Sulfate 220 mg 05/10/21 22:00 05/24/21 22:10 Zinc Sulfate 220 Mg Cap PO 220 mg BID SANTOS Administration Zolpidem Tartrate 5 mg 05/22/21 22:00 05/24/21 22:09 Zolpidem 5 Mg Tab PO 5 mg QHS PRN Administration Sleep Nutrition/Malnutrition Assess - Dietary Evaluation Nutrition/Malnutrition Findings: Nutrition Notes Start: 05/11/21 12:44 Freq: Status: Active Protocol: Document 05/21/21 17:00 DALY (Rec: 05/21/21 17:33 DALY [id number]) Nutrition Notes Initial or Follow up Reassessment Current Diagnosis Acute Kidney Injury,CKD (stage V CKD),Sepsis,Respiratory Failure,Malnutrition Other Pertinent Diagnosis COVID-19/Pneumonia, BILLIE/CKD/ ESRD+HD, HIV/Nephropathy/AIDS, Esophagitis ... Current Diet Renal Diet (since D 05/14), D Suppl (since D 05/14). Labs/Tests 05/21: Na 130, Cl 88.4, BUN 69 , Crea 6.6, Glu 137. Pertinent Medications 05/21: nutritionally unremarkable. Height 6 ft 2 in Weight 55.3 kg Norman Body Weight (kg) 86.36 BMI 15.6 Weight change and time frame 0.5 Kg body weight loss in 1 week reported. Weight Status Underweight Subjective/Other Information RD consult for Dietary advancement, % intake of meals , and body weight change. Pt continues on Renal Diet and Nepro ONS TID, and receiving PBJ sandwichwes on each meal. Pt's PO intake of meals has been Poor (25%), according to ADL notes. 0.5 Kg body weight loss in 1 week reported. Percent of energy/protein needs met: Prescribed Renal Diet provides for energy/protein needs (2, 072 Kcal/77 g) during LOS; additionally, Dietary Supplements will compensate for possible poor or insufficient PO intake of meals with 1,275 Kcal and 57 g of protein. Burn Absent Trauma Absent GI Symptoms None Food Allergy No Skin Integrity/Comment Redness, Dryness. Current % PO Poor (25-49%) Minimum of two criteria Yes #1 Nutrition Diagnosis Underweight Diagnosis Progress(for reassessment Continues documentation) Is patient on ventilator? No Is Patient Ambulatory and/or Out of Bed Yes REE-([facility]-ambulatory/OOB) [ 1992.575 [id number]] Calculation Used for Recommendations [facility] Additional Notes Protein: >1.2 g/Kg; >67 g/day. Fluids: 1 ml/Kcal, or as per MD. Nutrition Intervention Change Diet Order: Continue Renal Diet and Pt's Preferred food items. Add Supplement/Snack (indicate name/kcal Continue 8 fl oz Nepro w/ /protein ) CARBSTEADY; TID. Provides kCal: 1,275 Provides Protein (gm) 57 Goal #1 Compensate, through dietary supplementation, for possible poor or insufficient PO intake of meals during LOS. Goal #2 Maintain body weight within +/ -3% of admission body weight during LOS. Follow-Up By: 05/28/21 Additional Comments Continue monitoring food tolerance, %PO intake of meals , and BM.
--- NOTE | 2021-05-25 09:04 | Progress Note ---
Assessment and Plan Assessment Sepsis Pneumonia Malnutrition Acute respiratory failure with hypoxia COVID-19 positive HIV (human immunodeficiency virus infection) Progressive CKD likely ESRD Hypokalemia Plan: Hemodialysis today for UF and clearance as scheduled, currently on ,, schedule Hypokalemia- 3.5K bath with HD today Kidney disease could be related to HIVAN Renal US showed CKD signs Renally dose medications Strict I&O's daily Obtain daily weights CM onboard for outpatient HD placement Plan of care reviewed by Dr. Corral Subjective Date of service: 05/25/21 Principal diagnosis: ESRD Interval history: Patient is with active COVID positive infection, chart reviewed. Objective - Vital Signs Vital signs: Vital Signs - 12hr 05/24/21 05/24/21 05/25/21 22:00 22:50 05:01 Temperature 97.8 F 98.3 F Pulse Rate 107 H 102 H Respiratory 20 18 Rate Blood Pressure 137/99 148/102 O2 Sat by Pulse 100 99 94 Oximetry - Lab 05/25/21 05:36 05/25/21 05:36 Most recent lab results Calcium 8.6 mg/dL (8.4-10.2) 05/25/21 05:36 Magnesium 1.60 mg/dL (1.7-2.3) L 05/25/21 05:36 Medications & Allergies - Medications Allergies/Adverse Reactions: Allergies No Known Allergies Allergy (Verified 04/20/21 08:43) Home Medications: Home Medications Medication Instructions Recorded Confirmed Last Taken Type Multivit-Min/Folic/Vit K/Lycop 1 tab PO QDAY 04/21/21 05/13/21 3 Days Ago History [Men's Multivitamin Tablet] ~04/18/21 Sodium Bicarbonate 1,300 mg PO TID #90 tablet 05/01/21 05/13/21 Unknown Rx Active Medications: Generic Name Dose Route Start Last Admin Trade Name Freq PRN Reason Stop Dose Admin Acetaminophen 650 mg 05/10/21 11:26 05/20/21 09:00 Acetaminophen 325 Mg Tab PO 650 mg Q4H PRN Administration Pain MILD(1-3)/Fever >100.5/LANGLEY Albuterol 2.5 mg 05/10/21 11:26 05/21/21 20:05 Albuterol 2.5 Mg/3 Ml Nebu IH 2.5 mg Q4HRT PRN Administration Shortness Of Breath Alprazolam 0.25 mg 05/15/21 09:38 05/24/21 08:36 Alprazolam 0.25 Mg Tab PO 0.25 mg DAILY PRN Administration Anxiety Ascorbic Acid 500 mg 05/10/21 22:00 05/24/21 22:09 Ascorbic Acid 500 Mg Tab PO 500 mg BID SANTOS Administration Bumetanide 1 mg 05/20/21 22:00 05/24/21 22:09 Bumetanide 1 Mg/4 Ml Inj IV 1 mg BID SANTOS Administration Cholecalciferol 1,000 unit 05/21/21 12:00 05/24/21 13:51 Cholecalciferol (Vit D3) 1000 Unit (25 Mcg) Tab PO Not Given QDAY SANTOS Darunavir 800 mg 05/10/21 14:45 05/24/21 13:18 Darunavir 800 Mg Tab PO 800 mg QDAY SANTOS Administration Dolutegravir Sodium 50 mg 05/10/21 15:00 05/24/21 13:18 Dolutegravir 50 Mg Tab PO 50 mg QDAY SANTOS Administration Fluconazole 200 mg 05/19/21 19:00 05/24/21 13:18 Fluconazole 200 Mg Tab PO 06/08/21 10:01 200 mg QDAY SANTOS Administration Protocol Guaifenesin 200 mg 05/25/21 08:25 05/25/21 08:45 Guaifenesin 100 Mg/5 Ml Oral Liqd PO 200 mg Q4H PRN Administration Cough Heparin Sodium (Porcine) 5,000 unit 05/10/21 22:00 05/24/21 22:07 Heparin 5,000 Unit/1 Ml Vial SUB-Q 5,000 unit Q12HR SANTOS Administration Hydralazine HCl 10 mg 05/23/21 21:30 05/24/21 05:50 Hydralazine 20 Mg/1 Ml Inj IV 10 mg Q4HR PRN Administration Blood Pressure Sodium Chloride 100 mls @ 999 mls/hr 05/13/21 13:10 Nacl 0.9% IV TRENT PRN Hypotension Trimethoprim/Sulfamethoxazole 158.125 mls @ 105.417 mls/hr 05/20/21 16:00 05/25/21 08:00 130 mg/ Dextrose/ IV 05/26/21 02:59 105.417 mls/hr Miscellaneous Information Q8H SANTOS Administration Lamivudine 100 mg 05/10/21 15:00 05/24/21 13:19 Lamivudine 50 Mg/5 Ml Oral Liqd PO 100 mg DAILY SANTOS Administration Metoprolol Succinate 25 mg 05/22/21 11:00 05/24/21 13:17 Metoprolol Succinate Xl 25 Mg Tab PO 25 mg QDAY SANTOS Administration Multivitamins/Minerals 1 each 05/11/21 10:00 05/24/21 13:51 Multivitamins,Ther W-Minerals Tab PO Not Given QDAY [facility] Ondansetron HCl 4 mg 05/10/21 11:26 05/20/21 12:16 Ondansetron 4 Mg/2 Ml Inj IV 4 mg Q8H PRN Administration Nausea And Vomiting Prednisone 30 mg 05/15/21 10:00 05/24/21 13:23 Prednisone 10 Mg Tab PO 30 mg QDAY [facility] Administration Ritonavir 100 mg 05/10/21 15:00 05/24/21 13:18 Ritonavir 100 Mg Tab PO 100 mg QDAY SANTOS Administration Sodium Bicarbonate 1,300 mg 05/10/21 14:00 05/25/21 08:45 Sodium Bicarbonate 650 Mg Tab PO 1,300 mg TID SANTOS Administration Sodium Chloride 10 ml 05/10/21 22:00 05/24/21 22:08 Sodium Chloride 0.9% 10 Ml Flush Syringe IV 10 ml BID SANTOS Administration Sodium Chloride 10 ml 05/10/21 11:26 Sodium Chloride 0.9% 10 Ml Flush Syringe IV PRN PRN LINE FLUSH Trimethoprim/Sulfamethoxazole 1 each 05/26/21 10:00 Sulfamethoxazole/Trimethoprim 800/160mg Ds Tab PO 06/03/21 23:59 Q12HR [facility] Protocol Trimethoprim/Sulfamethoxazole 0.5 each 06/04/21 22:00 Sulfamethoxazole/Trimethoprim 800/160mg Ds Tab PO MoWeFr [facility] Zinc Sulfate 220 mg 05/10/21 22:00 05/24/21 22:10 Zinc Sulfate 220 Mg Cap PO 220 mg BID SANTOS Administration Zolpidem Tartrate 5 mg 05/22/21 22:00 05/24/21 22:09 Zolpidem 5 Mg Tab PO 5 mg QHS PRN Administration Sleep
[2021-05-25] MEDS: DARUNAVIR 800 MG TAB PO SCH (10:39)
[2021-05-25] MEDS: DOLUTEGRAVIR 50 MG TAB PO SCH (10:39)
[2021-05-25] MEDS: RITONAVIR 100 MG TAB PO SCH (10:39)
[2021-05-25] MEDS: BUMETANIDE 1 MG/4 ML INJ IV SCH ×2 (10:40→21:49)
[2021-05-25] MEDS: FLUCONAZOLE 200 MG TAB PO SCH (10:40)
[2021-05-25] MEDS: predniSONE 10 MG TAB PO SCH (10:40)
[2021-05-25] MEDS: lamiVUDine 50 MG/5 ML ORAL LIQD PO SCH (10:40)
[2021-05-25] MEDS: ZINC SULFATE 220 MG CAP PO SCH ×2 (10:41→21:49)
[2021-05-25] MEDS: ASCORBIC ACID 500 MG TAB PO SCH ×2 (10:41→21:49)
[2021-05-25] MEDS: MULTIVITAMINS,THER W-MINERALS TAB PO SCH (10:41)
[2021-05-25] MEDS: CHOLECALCIFEROL (VIT D3) 1000 UNIT (25 mcg) TAB PO SCH (10:42)
[2021-05-25] MEDS: METOPROLOL SUCCINATE XL 25 MG TAB PO SCH (10:43)
[2021-05-25] MEDS: HEPARIN 5,000 UNIT/1 ML VIAL SUB-Q SCH ×2 (10:50→21:49)
--- NOTE | 2021-05-25 11:23 | Progress Note ---
Assessment and Plan Cultures: 05/10/2021 blood culture: no growth 05/11/2021 COVID-19 PCR: Positive 05/11/2021 serum cryptococcal antigen: Negative HIV Viral load: 51,000 CD4 count: 0 Fungitell strongly positive, >500 Previous admission labs reviewed: Negative for syphilis, C. difficile PCR, hepatitis panel 04/24/2021 COVID-19 PCR: Positive A/P: 40-year-old male who was recently hospitalized and discharged earlier this month with a new diagnosis of HIV and suspected AIDS along with renal dysfunction. He was also diagnosed with COVID-19 during that admission. He was recommended outpatient follow-up with [facility]. Now readmitted with generalized weakness, worsening shortness of breath: #HIV/AIDS, ?HIVAN: Establishing care for ongoing HIV care is critical now with CD4 count of 0 #COVID-19: Initially tested positive on 04/24/2021, not a candidate for Remdesivir. #Acute hypoxic resp failure: ?COVID v/s renal failure v/s PCP pneumonia. #Pneumomediastinum: likely PCP related, common cause of spontaneous pneumothorax/pneumomediastinum. #PJP pneumonia: Given symptoms and positive Fungitell, likely PJP pneumonia. Fungitell can be falsely elevated by hemodialysis, however would treat empirically #Acute renal failure: ?HIVAN. Nephrology following. Now on HD. #Esophagitis: on fluconazole. Recs: -Discussed with Dr. Martinez, will switch to IV Bactrim for a few days, when ready for discharge, can convert back to PO Bactrim . 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 or [place]) -continue fluconazole 200mg q24h x 3 weeks Fernando Kuhn MD [facility] O: [phone] F: [phone] Subjective Date of service: 05/25/21 Principal diagnosis: ESRD Interval history: Afebrile, normal white count. No acute change. Objective - Exam Narrative Exam: Physical Exam Constitutional: Alert, cooperative. No acute distress Head, Ears, Nose: Normocephalic, atraumatic. External ears, nose normal Eyes: Conjunctivae/corneas clear. No icterus. No ptosis. Neck: Supple, no meningeal signs Cardiovascular: S1, S2 + Respiratory: AE fair b/l, occ crackles GI: Soft, non-tender; bowel sounds normal. No peritoneal signs Musculoskeletal: No pedal edema, no cyanosis. Skin: No rash or abscess Hem/Lymphatic: No palpable cervical or supraclavicular nodes. Psych: Mood ok. Affect normal Neurological: Awake, alert, oriented. No gross abnormality - Constitutional Vitals: Vital Signs Temp Pulse Resp BP Pulse Ox 98.3 F 102 H 18 140/100 94 05/25/21 05:01 05/25/21 05:01 05/25/21 05:01 05/25/21 10:43 05/25/21 05:01 Temperature -Last 24 Hours Temperature 98.3 F Temperature 97.8 F Temperature 98.9 F Temperature 97.6 F Temperature 98.2 F - Labs CBC & Chem 7: 05/25/21 05:36 05/25/21 05:36 Labs: Abnormal lab results 05/24/21 05/25/21 05/25/21 Range/Units 10:50 05:36 05:36 RBC 2.45 L (3.65-5.03) M/mm3 Hgb 7.5 L (11.8-15.2) gm/dl Hct 23.5 L (35.5-45.6) % MCV 96 H (84-94) fl RDW 17.5 H (13.2-15.2) % Seg Neuts % (Manual) 91.0 H (40.0-70.0) % Lymphocytes % (Manual) 5.0 L (13.4-35.0) % Lymphocytes # (Manual) 0.2 L (1.2-5.4) K/mm3 Sodium 135 L (137-145) mmol/L Potassium 3.4 L (3.6-5.0) mmol/L Chloride 97.7 L (98-107) mmol/L BUN 38 H (9-20) mg/dL Creatinine 4.6 H (0.8-1.3) mg/dL Glucose 113 H (75-100) mg/dL Magnesium 1.60 L (1.7-2.3) mg/dL Albumin 2.6 L (3.9-5) g/dL Coronavirus (PCR) Positive A (Negative)
[2021-05-25] MEDS: ZOLPIDEM 5 MG TAB PO PRN (21:52)
--- NOTE | 2021-05-26 08:25 | Discharge Summary ---
Providers - Providers Date of Admission: 05/10/21 11:26 Date of discharge: 05/26/21 Attending physician: JULIA ROMERO 05/10/21 11:15 Consult to Physician [CONS] Urgent Comment: Consulting Provider: TYREE ALLEN Physician Instructions: Reason For Exam: acute on chronic renal infsuf, pulm edema 05/10/21 12:11 Consult to Physician [CONS] Routine Comment: Consulting Provider: RADHA MEYER Physician Instructions: Reason For Exam: covid 19 infection 05/10/21 16:06 Consult to Interventional Radiology [CONS] Stat Consulting Provider: DIANNA GASPAR Reason For Exam: [employer] Notified:: Bertha Soliman 05/11/21 04:07 Consult to Dietitian/Nutrition [CONS] Routine Physician Instructions: Reason For Exam: Reason for Consult: Malnutrition 05/11/21 15:44 Consult to Case Management [CONS] Routine Services Needed at Discharge: Other Notified:: cm Comment:: place at [facility] under Dr Allen for dialysis Additional Physician Instructions: place at [facility] under Dr Allen for dialysis 05/13/21 08:54 Physical Therapy Evaluation and Treat [CONS] Stat Comment: Reason For Exam: eval and treat Primary care physician: REGISTERED DIETITIAN Hospitalization Reason for admission: HIV nephropathy Condition: Stable Hospital course: 40-year-old male who was recently hospitalized and discharged earlier this month with a new diagnosis of HIV and suspected AIDS with associated renal dysfunction. Patient was also noted to have a diagnosis of COVID-19 pneumonia during that admission but not hypoxic at that time. Patient was recommended for outpatient follow-up with [facility] department. Patient is now readmitted with complaints of generalized weakness and worsening shortness of breath. On this admission patient was admitted with diagnosis below HIV, suspected AIDS. HIV associated nephropathy Accelerated hypertension Acute renal failure. COVID-19. Patient initially tested + 04/24/2021 but not a candidate for remdesivir. Acute hypoxic respiratory failure. Etiology secondary to Covid versus renal failure versus PCP pneumonia. 05/11/2021. ID has been consulted and we will follow up HIV viral load, CD4 count and genotype. Follow-up LDH 1 3 beta D glucan. ID started Mepron to cover P MARTINEZ and avoiding Bactrim due to renal failure. We started steroids given the new hypoxia. ID also initiated ART with lamivudine, darunavir plus ritonavir and dolutegravir given the possibility of HIVAN. Consider pulmonary consultation. Nephrology following. Renal ultrasound shows signs of CKD. Nephrology to discuss hemodialysis initiation. Continue strict I's and O's daily and monitor renal function closely 05/12/2021. Patient is s/p placement of a right internal jugular tunneled cuffed hemodialysis catheter and initiation of hemodialysis on 05/11/2021. Patient is also undergo further hemodialysis today. CM consult to place patient at [facility]. We will follow up HIV viral load, CD4 count and genotype. Follow-up LDH 1 3 beta D glucan. ID started Mepron to cover P MARTINEZ and avoiding Bactrim due to renal failure. ID also initiated ART with lamivudine, darunavir plus ritonavir and dolutegravir given the possibility of HIVAN. Continue steroids given the hypoxia. Respiratory status has significantly improved after hemodialysis. I believe volume overload was the most significantly contributing factor/etiology. Follow-up serial chest x-ray. Patient currently with 2 L nasal cannula satting at 99% 05/13/2021. Continue hemodialysis per nephrology recommendations. Await outpatient arrangements for hemodialysis unit. We will follow up HIV viral lo ad, CD4 count and genotype. Follow-up LDH 1 3 beta D glucan. ID started Mepron to cover P MARTINEZ and avoiding Bactrim due to renal failure. ID also initiated ART with lamivudine, darunavir plus ritonavir and dolutegravir given the possibility of HIVAN. Continue steroids given the hypoxia and change from Solu- Medrol IV to dexamethasone. Procalcitonin level was elevated at 6. We will continue IV antibiotics per ID recommendations 05/14/2021. Continue hemodialysis per nephrology recommendations. Await outpatient arrangements for hemodialysis unit. We will follow up HIV viral load, CD4 count and genotype. Follow-up LDH 1 3 beta D glucan. ID started Mepron to cover P MARTINEZ and avoiding Bactrim due to renal failure. ID also initiated ART with lamivudine, darunavir plus ritonavir and dolutegravir given the possibility of HIVAN. Continue dexamethasone. Patient to follow-up with health department in early May. Case management follow-up with regards to home ART before follow-up with the health department 05/15/2021. Continue hemodialysis per nephrology recommendations. Await outpatient arrangements for hemodialysis unit. Patient wants anxiety medication prior to dialysis. We will start Xanax 0.25 mg as needed. Continue lamivudine, darunavir plus ritonavir and dolutegravir given the possibility of HIVAN. Continue dexamethasone. Patient to follow-up with health department in early May. Case management follow-up with regards to home ART before follow- up with the health department 05/16/2021. Continue hemodialysis per nephrology recommendations. Await outpatient arrangements for hemodialysis unit. Renal US showed CKD signs. Strict I&O's daily. Obtain daily weights. Continue Xanax prior to hemodialysis for anxiety. Continue lamivudine, darunavir plus ritonavir and dolutegravir given the possibility of HIVAN. Continue dexamethasone. Patient to follow-up with health department in early May. Patient with elevated diastolic BP greater than 100. We will start Procardia 30 mg twice daily. 05/17/2021. Patient to be initiated on MWF hemodialysis schedule. Patient requesting Xanax for anxiety prior to hemodialysis session. Await outpatient arrangements for hemodialysis unit per case management. Renal ultrasound revealed signs of chronic kidney disease. Continue strict I&O's daily. Obtain daily weights. Continue lamivudine, darunavir plus ritonavir and dolutegravir given the possibility of HIVAN. Continue dexamethasone. Patient to follow-up with health department in early May. Patient's BP much better controlled with the addition of Procardia. 05/18: Hemodialysis was discontinued yesterday after 1 hour if patient request as he was feeling weak with hypotension. BP remains low to 80s. Given NS bolus management this morning. Procardia discontinued. Bumex is on hold. Excellent urine. Still feeling weak. Remains anxious. Asking to be sedated during dialysis. CXR ordered daily Dr. Graves shows mild localized subcutaneous em physema and right-sided neck pain currently dialysis catheter is placed. A CT chest showed diabetes mellitus with emphysema-like cough. Vascular surgery is addressing this. Sinus tachycardia stable. On room air without acute respite distress at rest. Discussed with the patient, nursing staff and vascular surgery. 05/19:Patient is feeling much better after undergoing hemodialysis for 3 hours t candace.Breathing much better. Mild subcutis emphysema in the right supraclavicular fossa seems stable. This is assisted by pulmonary in consultation and reevaluation by today. No acute intervention required, expected to resolve by itself. Looks more comfortable and less anxious. Remains on 3 L of O2. 05/20: No acute events. Remains on 3 L O2. Pneumomediastinum and subcutaneous emphysema stable. Bactrim changed from p.o. to IV. Sinus tach worse today and received Lopressor IV x1 dose. Discussed with ID. 05/21: No acute events, stable, awaiting outpatient dialysis arrangements for discharge. 05/22: Chronic anxiety, better. Since tachycardia stable. Remains on 2 to 3 days of O2. Stable for discharge pending outpatient dialysis arrangements. Discussed with CM. 05/23: Remains stable for discharge pending outpatient dialysis arrangements by CM. 05/24: Remains stable for discharge pending outpatient dialysis treatments with CM. 05/25: Remains stable for discharge pending outpatient dialysis treatments with CM. Continue IV Bactrim per ID recommendations to complete a total of 21 days. Patient should also have tapering steroids over the next 21 days. ART was started on 05/10/2021. Continue fluconazole 200 mg every 24 hours x3 weeks 05/26: Patient's discharge diagnosis is HIV/AIDS, HIV associated nephropathy, acute hypoxic respiratory failure secondary to PJP pneumonia, pneumomediastinum related to PCP pneumonia, acute renal failure now on hemodialysis, Jennifer esophagitis. Case management has arranged for follow-up with outpatient PCP with Dr. Zelaya. Patient has prescriptions for 2 weeks of ART arranged through case management. Patient is to follow-up with [facility] at [facility] or [facility]. Hemodialysis chair is pending at [facility] Dedicated discharge time 35 minutes. Disposition: 01 HOME / SELF CARE / HOMELESS Final Discharge Diagnosis (Prints w/discharge instructions): HIV/AIDS, HIV associated nephropathy, acute hypoxic respiratory failure secondary to PJP pneumonia, pneumomediastinum related to PCP pneumonia, acute renal failure now on hemodialysis, Jennifer esophagitis. Core Measure Documentation - Palliative Care Palliative Care/ Comfort Measures: Not Applicable - Core Measures Any of the following diagnoses?: none Exam - Constitutional Vitals: Temp Pulse Resp BP Pulse Ox 98.2 F 101 H 18 148/107 99 05/26/21 04:29 05/26/21 04:29 05/26/21 04:29 05/26/21 04:29 05/26/21 04:29 General appearance: Present: no acute distress, well-nourished - EENT Eyes: Present: PERRL ENT: hearing intact, clear oral mucosa - Neck Neck: Present: supple, normal ROM - Respiratory Respiratory effort: normal Respiratory: bilateral: CTA - Cardiovascular Heart Sounds: Present: S1 & S2. Absent: rub, click - Extremities Extremities: pulses symmetrical, No edema Peripheral Pulses: within normal limits - Abdominal General gastrointestinal: Present: soft, non-tender, non-distended, normal bowel sounds Male genitourinary: Present: normal - Integumentary Integumentary: Present: clear, warm, dry - Musculoskeletal Musculoskeletal: gait normal, strength equal bilaterally - Psychiatric Psychiatric: appropriate mood/affect, intact judgment & insight - Neurologic Neurologic: CNII-XII intact, moves all extremities Plan Activity: advance as tolerated Weight Bearing Status: Weight Bear as Tolerated Diet: regular Additional Instructions: Case management has arranged for follow-up with outpatient PCP with Dr. Zelaya. Patient has prescriptions for 2 weeks of ART arranged through case management. Patient is to follow-up with [facility] clinic at [facility] or [facility]. Hemodialysis chair is pending at [facility] Follow up with: PRIMARY CAREMD [Primary Care Provider] - 3-5 Days SATHYA ZELAYA MD [Staff Physician] - 7 Days Prescriptions: Sulfamethoxazole/Trimethoprim [Bactrim DS TAB] 0.5 each PO MoWeFr #30 tablet Fluconazole [Diflucan TAB] 200 mg PO QDAY #14 tablet lamiVUDine [Epivir Hbv] 100 mg PO QDAY #14 tab Metoprolol Xl [Metoprolol SUCCINATE ER TAB] 25 mg PO QDAY #30 tablet predniSONE 10 mg PO QDAY 21 Days #42 tab Darunavir [Prezista] 800 mg PO QDAY #14 tablet Ritonavir 100 mg PO QDAY #14 tab Sodium Bicarbonate 1,300 mg PO TID #90 tablet Dolutegravir [Tivicay] 50 mg PO QDAY #14 tablet Cholecalciferol Vit D3 [Vitamin D3 1,000 UNIT TAB] 1,000 unit PO QDAY #30 tablet ALPRAZolam [Xanax TAB] 0.25 mg PO DAILY PRN #10 tablet PRN Reason: Anxiety
[2021-05-26] MEDS: SODIUM BICARBONATE 650 MG TAB PO SCH ×3 (08:57→19:26)
[2021-05-26] MEDS: DOLUTEGRAVIR 50 MG TAB PO SCH (08:59)
[2021-05-26] MEDS: lamiVUDine 50 MG/5 ML ORAL LIQD PO SCH (09:01)
[2021-05-26] MEDS: predniSONE 10 MG TAB PO SCH (09:10)
[2021-05-26] MEDS: FLUCONAZOLE 200 MG TAB PO SCH (09:11)
[2021-05-26] MEDS: DARUNAVIR 800 MG TAB PO SCH (09:11)
[2021-05-26] MEDS: SULFAMETHOXAZOLE/TRIMETHOPRIM 800/160MG DS TAB PO SCH ×2 (09:12→22:11)
[2021-05-26] MEDS: HEPARIN 5,000 UNIT/1 ML VIAL SUB-Q SCH ×2 (09:14→22:12)
[2021-05-26] MEDS: BUMETANIDE 1 MG/4 ML INJ IV SCH ×2 (09:14→22:12)
--- NOTE | 2021-05-26 09:18 | Progress Note ---
Assessment and Plan (1) Sepsis (2) Pneumonia (3) Malnutrition (4) Acute respiratory failure with hypoxia (5) COVID-19 (6) HIV (human immunodeficiency virus infection) (7) Progressive CKD likely ESRD kidney disease could be related to HIVAN Renal US showed CKD signs R&B of HD was discussed with patient who agreed and consented to HD. s/p TDC may 11, HD#1 may 11 HD today, Eval for need daily CM consulted to place patient at OP dialysis unit. Renally dose medications Strict I&O's daily Obtain daily weights Continue to monitor renal function closely Subjective Date of service: 05/26/21 Principal diagnosis: ESRD Interval history: HD today, NAD. Objective - Exam Narrative Exam: General appearance: Present: mild distress, cachectic - EENT Eyes: Present: PERRL ENT: hearing intact, clear oral mucosa - Neck Neck: Present: supple, normal ROM - Respiratory Respiratory effort: labored Respiratory: bilateral: diminished, rhonchi - Cardiovascular Rhythm: other (Tachycardia) Heart Sounds: Present: S1 & S2. Absent: rub, click - Extremities Extremities: pulses symmetrical, No edema Peripheral Pulses: abnormal (Capillary refill greater than 3.5 seconds) - Abdominal General gastrointestinal: Present: soft, non-tender, non-distended, normal bowel sounds Male genitourinary: Present: normal - Integumentary Integumentary: Present: clear, dry, clammy, decreased turgor - Musculoskeletal Musculoskeletal: generalized weakness - Psychiatric Psychiatric: appropriate mood/affect, intact judgment & insight - Neurologic Neurologic: CNII-XII intact, no focal deficits, moves all extremities, no gait normal - Vital Signs Vital signs: Vital Signs - 12hr 05/25/21 05/25/21 05/26/21 22:00 22:33 04:29 Temperature 98.1 F 98.2 F Pulse Rate 108 H 101 H Respiratory 18 18 Rate Blood Pressure 156/103 148/107 O2 Sat by Pulse 98 99 99 Oximetry - Lab 05/25/21 05:36 05/25/21 05:36 Most recent lab results Calcium 8.6 mg/dL (8.4-10.2) 05/25/21 05:36 Magnesium 1.60 mg/dL (1.7-2.3) L 05/25/21 05:36 Medications & Allergies - Medications Allergies/Adverse Reactions: Allergies No Known Allergies Allergy (Verified 04/20/21 08:43) Home Medications: Home Medications Medication Instructions Recorded Confirmed Last Taken Type Multivit-Min/Folic/Vit K/Lycop 1 tab PO QDAY 04/21/21 05/13/21 3 Days Ago History [Men's Multivitamin Tablet] ~04/18/21 ALPRAZolam [Xanax TAB] 0.25 mg PO DAILY PRN #10 tablet 05/26/21 Unknown Rx Cholecalciferol Vit D3 [Vitamin D3 1,000 unit PO QDAY #30 tablet 05/26/21 Unknown Rx 1,000 UNIT TAB] Darunavir [Prezista] 800 mg PO QDAY #14 tablet 05/26/21 Unknown Rx Dolutegravir [Tivicay] 50 mg PO QDAY #14 tablet 05/26/21 Unknown Rx Fluconazole [Diflucan TAB] 200 mg PO QDAY #14 tablet 05/26/21 Unknown Rx Metoprolol Xl [Metoprolol 25 mg PO QDAY #30 tablet 05/26/21 Unknown Rx SUCCINATE ER TAB] Ritonavir 100 mg PO QDAY #14 tab 05/26/21 Unknown Rx Sodium Bicarbonate 1,300 mg PO TID #90 tablet 05/26/21 Unknown Rx Sulfamethoxazole/Trimethoprim 0.5 each PO MoWeFr #30 tablet 05/26/21 Unknown Rx [Bactrim DS TAB] lamiVUDine [Epivir Hbv] 100 mg PO QDAY #14 tab 05/26/21 Unknown Rx predniSONE 10 mg PO QDAY 21 Days #42 tab 05/26/21 Unknown Rx Active Medications: Generic Name Dose Route Start Last Admin Trade Name Honorio PRN Reason Stop Dose Admin Acetaminophen 650 mg 05/10/21 11:26 05/20/21 09:00 Acetaminophen 325 Mg Tab PO 650 mg Q4H PRN Administration Pain MILD(1-3)/Fever >100.5/LANGLEY Albuterol 2.5 mg 05/10/21 11:26 05/21/21 20:05 Albuterol 2.5 Mg/3 Ml Nebu IH 2.5 mg Q4HRT PRN Administration Shortness Of Breath Alprazolam 0.25 mg 05/15/21 09:38 05/24/21 08:36 Alprazolam 0.25 Mg Tab PO 0.25 mg DAILY PRN Administration Anxiety Ascorbic Acid 500 mg 05/10/21 22:00 05/25/21 21:49 Ascorbic Acid 500 Mg Tab PO 500 mg BID SANTOS Administration Bumetanide 1 mg 05/20/21 22:00 05/25/21 21:49 Bumetanide 1 Mg/4 Ml Inj IV 1 mg BID SANTOS Administration Cholecalciferol 1,000 unit 05/21/21 12:00 05/25/21 10:42 Cholecalciferol (Vit D3) 1000 Unit (25 Mcg) Tab PO 1,000 unit QDAY SANTOS Administration Darunavir 800 mg 05/10/21 14:45 05/26/21 09:11 Darunavir 800 Mg Tab PO 800 mg QDAY SANTOS Administration Dolutegravir Sodium 50 mg 05/10/21 15:00 05/26/21 08:59 Dolutegravir 50 Mg Tab PO 50 mg QDAY SANTOS Administration Fluconazole 200 mg 05/19/21 19:00 05/26/21 09:11 Fluconazole 200 Mg Tab PO 06/08/21 10:01 200 mg QDAY SANTOS Administration Protocol Guaifenesin 200 mg 05/25/21 08:25 05/25/21 15:39 Guaifenesin 100 Mg/5 Ml Oral Liqd PO 200 mg Q4H PRN Administration Cough Heparin Sodium (Porcine) 5,000 unit 05/10/21 22:00 05/25/21 21:49 Heparin 5,000 Unit/1 Ml Vial SUB-Q 5,000 unit Q12HR SANTOS Administration Hydralazine HCl 10 mg 05/23/21 21:30 05/24/21 05:50 Hydralazine 20 Mg/1 Ml Inj IV 10 mg Q4HR PRN Administration Blood Pressure Sodium Chloride 100 mls @ 999 mls/hr 05/13/21 13:10 Nacl 0.9% IV TRENT PRN Hypotension Lamivudine 100 mg 05/10/21 15:00 05/26/21 09:01 Lamivudine 50 Mg/5 Ml Oral Liqd PO 100 mg DAILY SANTOS Administration Metoprolol Succinate 25 mg 05/22/21 11:00 05/25/21 10:43 Metoprolol Succinate Xl 25 Mg Tab PO 25 mg QDAY SANTOS Administration Multivitamins/Minerals 1 each 05/11/21 10:00 05/25/21 10:41 Multivitamins,Ther W-Minerals Tab PO 1 each QDAY SANTOS Administration Ondansetron HCl 4 mg 05/10/21 11:26 05/20/21 12:16 Ondansetron 4 Mg/2 Ml Inj IV 4 mg Q8H PRN Administration Nausea And Vomiting Prednisone 30 mg 05/15/21 10:00 05/26/21 09:10 Prednisone 10 Mg Tab PO 30 mg QDAY SANTOS Administration Ritonavir 100 mg 05/10/21 15:00 05/25/21 10:39 Ritonavir 100 Mg Tab PO 100 mg QDAY SANTOS Administration Sodium Bicarbonate 1,300 mg 05/10/21 14:00 05/26/21 08:57 Sodium Bicarbonate 650 Mg Tab PO 1,300 mg TID SANTOS Administration Sodium Chloride 10 ml 05/10/21 22:00 05/25/21 21:50 Sodium Chloride 0.9% 10 Ml Flush Syringe IV 10 ml BID SANTOS Administration Sodium Chloride 10 ml 05/10/21 11:26 Sodium Chloride 0.9% 10 Ml Flush Syringe IV PRN PRN LINE FLUSH Trimethoprim/Sulfamethoxazole 1 each 05/26/21 10:00 05/26/21 09:12 Sulfamethoxazole/Trimethoprim 800/160mg Ds Tab PO 06/03/21 23:59 1 each Q12HR SANTOS Administration Protocol Trimethoprim/Sulfamethoxazole 0.5 each 06/04/21 22:00 Sulfamethoxazole/Trimethoprim 800/160mg Ds Tab PO MoWeFr SANTOS Zinc Sulfate 220 mg 05/10/21 22:00 05/25/21 21:49 Zinc Sulfate 220 Mg Cap PO 220 mg BID SANTOS Administration Zolpidem Tartrate 5 mg 05/22/21 22:00 05/25/21 21:52 Zolpidem 5 Mg Tab PO 5 mg QHS PRN Administration Sleep
[2021-05-26] MEDS: METOPROLOL SUCCINATE XL 25 MG TAB PO SCH (10:13)
[2021-05-26] MEDS: ZINC SULFATE 220 MG CAP PO SCH ×2 (10:14→22:12)
[2021-05-26] MEDS: ALPRAZolam 0.25 MG TAB PO PRN (10:14)
[2021-05-26] MEDS: ASCORBIC ACID 500 MG TAB PO SCH ×2 (10:14→22:12)
[2021-05-26] MEDS: MULTIVITAMINS,THER W-MINERALS TAB PO SCH (10:14)
[2021-05-26] MEDS: RITONAVIR 100 MG TAB PO SCH (10:15)
--- NOTE | 2021-05-26 13:36 | Progress Note ---
Assessment and Plan Cultures: 05/10/2021 blood culture: no growth 05/11/2021 COVID-19 PCR: Positive 05/11/2021 serum cryptococcal antigen: Negative HIV Viral load: 51,000 CD4 count: 0 Fungitell strongly positive, >500 Previous admission labs reviewed: Negative for syphilis, C. difficile PCR, hepatitis panel 04/24/2021 COVID-19 PCR: Positive A/P: 40-year-old male who was recently hospitalized and discharged earlier this month with a new diagnosis of HIV and suspected AIDS along with renal dysfunction. He was also diagnosed with COVID-19 during that admission. He was recommended outpatient follow-up with [facility]. Now readmitted with generalized weakness, worsening shortness of breath: #HIV/AIDS, ?HIVAN: Establishing care for ongoing HIV care is critical now with CD4 count of 0 #COVID-19: Initially tested positive on 04/24/2021, not a candidate for Remdesivir. #Acute hypoxic resp failure: ?COVID v/s renal failure v/s PCP pneumonia. #Pneumomediastinum: likely PCP related, common cause of spontaneous pneumothorax/pneumomediastinum. #PJP pneumonia: Given symptoms and positive Fungitell, likely PJP pneumonia. Fungitell can be falsely elevated by hemodialysis, however would treat empirically #Acute renal failure: ?HIVAN. Nephrology following. Now on HD. #Esophagitis: on fluconazole. Recs: -Discussed with Dr. Martinez, will switch to IV Bactrim for a few days, when ready for discharge, can convert back to PO Bactrim . Complete total 21 days, then 0.5 tab post dialysis MWF for intermodal dispatcher prophylaxis -taper steroids over 21 days -Given concern for HIVAN, ART was started on 05/10/2021: continue with lamivudine 100 mg daily, darunavir + ritonavir, dolutegravir -Will need social work/pharmacy assistance to give him at least 2 weeks of ART supply if possible, till patient follows up at HIV clinic ([facility] @ [facility] or [place]) -continue fluconazole 200mg q24h x 3 weeks Fernando Kuhn MD [facility] O: [phone] F: [phone] Subjective Date of service: 05/26/21 Principal diagnosis: ESRD Interval history: Afebrile, normal white count. No new issues. Objective - Exam Narrative Exam: Physical Exam Constitutional: Alert, cooperative. No acute distress Head, Ears, Nose: Normocephalic, atraumatic. External ears, nose normal Eyes: Conjunctivae/corneas clear. No icterus. No ptosis. Neck: Supple, no meningeal signs Cardiovascular: S1, S2 + Respiratory: AE fair b/l, occ crackles GI: Soft, non-tender; bowel sounds normal. No peritoneal signs Musculoskeletal: No pedal edema, no cyanosis. Skin: No rash or abscess Hem/Lymphatic: No palpable cervical or supraclavicular nodes. Psych: Mood ok. Affect normal Neurological: Awake, alert, oriented. No gross abnormality - Constitutional Vitals: Vital Signs Temp Pulse Resp BP Pulse Ox 98.7 F 110 H 22 157/101 96 05/26/21 11:08 05/26/21 11:08 05/26/21 11:08 05/26/21 11:08 05/26/21 11:08 Temperature -Last 24 Hours Temperature 98.7 F Temperature 98.2 F Temperature 98.1 F Temperature 98.3 F - Labs CBC & Chem 7: 05/25/21 05:36 05/25/21 05:36
[2021-05-26] MEDS: CHOLECALCIFEROL (VIT D3) 1000 UNIT (25 mcg) TAB PO SCH (13:55)
[2021-05-26] MEDS: hydrALAZINE 20 MG/1 ML INJ IV PRN (17:37)
[2021-05-26] MEDS: guaiFENesin 100 MG/5 ML ORAL LIQD PO PRN (19:26)
[2021-05-27] MEDS: ZOLPIDEM 5 MG TAB PO PRN (00:09)
[2021-05-27] MEDS: guaiFENesin 100 MG/5 ML ORAL LIQD PO PRN (04:23)
[2021-05-27] MEDS: METOPROLOL SUCCINATE XL 25 MG TAB PO SCH ×2 (07:35→15:01)
--- NOTE | 2021-05-27 09:15 | Progress Note ---
Assessment and Plan (1) Sepsis (2) Pneumonia (3) Malnutrition (4) Acute respiratory failure with hypoxia (5) COVID-19 (6) HIV (human immunodeficiency virus infection) (7) Progressive CKD likely ESRD No indication for HD today kidney disease could be related to HIVAN Renal US showed CKD signs s/p TDC may 11, HD#1 may [address] patient at OP dialysis unit. Renally dose medications Strict I&O's daily Obtain daily weights Continue to monitor renal function closely Subjective Date of service: 05/27/21 Principal diagnosis: ESRD Interval history: no overnight events Objective - Vital Signs Vital signs: Vital Signs - 12hr 05/26/21 05/26/21 05/26/21 21:15 21:30 21:45 Temperature Pulse Rate 127 H 127 H 127 H Pulse Rate [ Bilateral Throughout] Respiratory Rate Respiratory Rate [Bilateral Throughout] Blood Pressure 155/96 147/92 143/92 Blood Pressure [Left] O2 Sat by Pulse Oximetry O2 Sat by Pulse Oximetry [ Bilateral Throughout] 05/26/21 05/26/21 05/26/21 22:00 22:15 22:30 Temperature Pulse Rate 128 H 130 H 129 H Pulse Rate [ Bilateral Throughout] Respiratory Rate Respiratory Rate [Bilateral Throughout] Blood Pressure 140/92 150/92 155/96 Blood Pressure [Left] O2 Sat by Pulse Oximetry O2 Sat by Pulse Oximetry [ Bilateral Throughout] 05/26/21 05/26/21 05/26/21 22:45 23:00 23:20 Temperature Pulse Rate 128 H 128 H 128 H Pulse Rate [ Bilateral Throughout] Respiratory Rate Respiratory Rate [Bilateral Throughout] Blood Pressure 151/86 139/87 135/94 Blood Pressure [Left] O2 Sat by Pulse Oximetry O2 Sat by Pulse Oximetry [ Bilateral Throughout] 05/26/21 05/27/21 05/27/21 23:30 04:06 06:05 Temperature 98.5 F 98.0 F Pulse Rate 121 H 123 H Pulse Rate [ 126 H Bilateral Throughout] Respiratory 18 20 Rate Respiratory 20 Rate [Bilateral Throughout] Blood Pressure 140/94 Blood Pressure 139/89 [Left] O2 Sat by Pulse 98 Oximetry O2 Sat by Pulse 99 Oximetry [ Bilateral Throughout] 05/27/21 07:35 Temperature Pulse Rate 139 H Pulse Rate [ Bilateral Throughout] Respiratory Rate Respiratory Rate [Bilateral Throughout] Blood Pressure Blood Pressure [Left] O2 Sat by Pulse Oximetry O2 Sat by Pulse Oximetry [ Bilateral Throughout] - Lab 05/25/21 05:36 05/25/21 05:36 Most recent lab results Calcium 8.6 mg/dL (8.4-10.2) 05/25/21 05:36 Magnesium 1.60 mg/dL (1.7-2.3) L 05/25/21 05:36 Medications & Allergies - Medications Allergies/Adverse Reactions: Allergies No Known Allergies Allergy (Verified 04/20/21 08:43) Home Medications: Home Medications Medication Instructions Recorded Confirmed Last Taken Type Multivit-Min/Folic/Vit K/Lycop 1 tab PO QDAY 04/21/21 05/13/21 3 Days Ago Histor y [Men's Multivitamin Tablet] ~04/18/21 ALPRAZolam [Xanax TAB] 0.25 mg PO DAILY PRN #10 tablet 05/26/21 Unknown Rx Cholecalciferol Vit D3 [Vitamin D3 1,000 unit PO QDAY #30 tablet 05/26/21 Unknown Rx 1,000 UNIT TAB] Darunavir [Prezista] 800 mg PO QDAY #14 tablet 05/26/21 Unknown Rx Dolutegravir [Tivicay] 50 mg PO QDAY #14 tablet 05/26/21 Unknown Rx Fluconazole [Diflucan TAB] 200 mg PO QDAY #14 tablet 05/26/21 Unknown Rx Metoprolol Xl [Metoprolol 25 mg PO QDAY #30 tablet 05/26/21 Unknown Rx SUCCINATE ER TAB] Ritonavir 100 mg PO QDAY #14 tab 05/26/21 Unknown Rx Sodium Bicarbonate 1,300 mg PO TID #90 tablet 05/26/21 Unknown Rx Sulfamethoxazole/Trimethoprim 0.5 each PO MoWeFr #30 tablet 05/26/21 Unknown Rx [Bactrim DS TAB] lamiVUDine [Epivir Hbv] 100 mg PO QDAY #14 tab 05/26/21 Unknown Rx predniSONE 10 mg PO QDAY 21 Days #42 tab 05/26/21 Unknown Rx Active Medications: Generic Name Dose Route Start Last Admin Trade Name Freq PRN Reason Stop Dose Admin Acetaminophen 650 mg 05/10/21 11:26 05/20/21 09:00 Acetaminophen 325 Mg Tab PO 650 mg Q4H PRN Administration Pain MILD(1-3)/Fever >100.5/[place] Albuterol 2.5 mg 05/10/21 11:26 05/21/21 20:05 Albuterol 2.5 Mg/3 Ml Nebu IH 2.5 mg Q4HRT PRN Administration Shortness Of Breath Alprazolam 0.25 mg 05/15/21 09:38 05/26/21 10:14 Alprazolam 0.25 Mg Tab PO 0.25 mg DAILY PRN Administration Anxiety Ascorbic Acid 500 mg 05/10/21 22:00 05/26/21 22:12 Ascorbic Acid 500 Mg Tab PO 500 mg BID SANTOS Administration Bumetanide 1 mg 05/20/21 22:00 05/26/21 22:12 Bumetanide 1 Mg/4 Ml Inj IV 1 mg BID SANTOS Administration Cholecalciferol 1,000 unit 05/21/21 12:00 05/26/21 13:55 Cholecalciferol (Vit D3) 1000 Unit (25 Mcg) Tab PO 1,000 unit QDAY SANTOS Administration Darunavir 800 mg 05/10/21 14:45 05/26/21 09:11 Darunavir 800 Mg Tab PO 800 mg QDAY SANTOS Administration Dolutegravir Sodium 50 mg 05/10/21 15:00 05/26/21 08:59 Dolutegravir 50 Mg Tab PO 50 mg QDAY SANTOS Administration Fluconazole 200 mg 05/19/21 19:00 05/26/21 09:11 Fluconazole 200 Mg Tab PO 06/08/21 10:01 200 mg QDAY SANTOS Administration Protocol Guaifenesin 200 mg 05/25/21 08:25 05/27/21 04:23 Guaifenesin 100 Mg/5 Ml Oral Liqd PO 200 mg Q4H PRN Administration Cough Heparin Sodium (Porcine) 5,000 unit 05/10/21 22:00 05/26/21 22:12 Heparin 5,000 Unit/1 Ml Vial SUB-Q 5,000 unit Q12HR SANTOS Administration Hydralazine HCl 10 mg 05/23/21 21:30 05/26/21 17:37 Hydralazine 20 Mg/1 Ml Inj IV 10 mg Q4HR PRN Administration Blood Pressure Sodium Chloride 100 mls @ 999 mls/hr 05/13/21 13:10 Nacl 0.9% IV TRENT PRN Hypotension Lamivudine 100 mg 05/10/21 15:00 05/26/21 09:01 Lamivudine 50 Mg/5 Ml Oral Liqd PO 100 mg DAILY SANTOS Administration Metoprolol Succinate 25 mg 05/22/21 11:00 05/27/21 07:35 Metoprolol Succinate Xl 25 Mg Tab PO 25 mg QDAY SANTOS Administration Multivitamins/Minerals 1 each 05/11/21 10:00 05/26/21 10:14 Multivitamins,Ther W-Minerals Tab PO 1 each QDAY SANTOS Administration Ondansetron HCl 4 mg 05/10/21 11:26 05/20/21 12:16 Ondansetron 4 Mg/2 Ml Inj IV 4 mg Q8H PRN Administration Nausea And Vomiting Prednisone 30 mg 05/15/21 10:00 05/26/21 09:10 Prednisone 10 Mg Tab PO 30 mg QDAY SANTOS Administration Ritonavir 100 mg 05/10/21 15:00 05/26/21 10:15 Ritonavir 100 Mg Tab PO 100 mg QDAY SANTOS Administration Sodium Bicarbonate 1,300 mg 05/10/21 14:00 05/26/21 19:26 Sodium Bicarbonate 650 Mg Tab PO 1,300 mg TID SANTOS Administration Sodium Chloride 10 ml 05/10/21 22:00 05/26/21 22:12 Sodium Chloride 0.9% 10 Ml Flush Syringe IV 10 ml BID SANTOS Administration Sodium Chloride 10 ml 05/10/21 11:26 Sodium Chloride 0.9% 10 Ml Flush Syringe IV PRN PRN LINE FLUSH Trimethoprim/Sulfamethoxazole 1 each 05/26/21 10:00 05/26/21 22:11 Sulfamethoxazole/Trimethoprim 800/160mg Ds Tab PO 06/03/21 23:59 1 each Q12HR SANTOS Administration Protocol Trimethoprim/Sulfamethoxazole 0.5 each 06/04/21 22:00 Sulfamethoxazole/Trimethoprim 800/160mg Ds Tab PO MoWeFr SANTOS Zinc Sulfate 220 mg 05/10/21 22:00 05/26/21 22:12 Zinc Sulfate 220 Mg Cap PO 220 mg BID SANTOS Administration Zolpidem Tartrate 5 mg 05/22/21 22:00 05/27/21 00:09 Zolpidem 5 Mg Tab PO 5 mg QHS PRN Administration Sleep
--- NOTE | 2021-05-27 09:36 | Progress Note ---
Assessment and Plan Assessment and plan: 40-year-old male who was recently hospitalized and discharged earlier this month with a new diagnosis of HIV and suspected AIDS with associated renal dysfunction. Patient was also noted to have a diagnosis of COVID-19 pneumonia during that admission but not hypoxic at that time. Patient was recommended for outpatient follow-up with [facility]. 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 HIV associated nephropathy Accelerated hypertension Acute renal failure. COVID-19. Patient initially tested + 04/24/2021 but not a candidate for remdesivir. Acute hypoxic respiratory failure. Etiology secondary to Covid versus renal failure versus PCP pneumonia. 05/11/2021. ID has been consulted and we will follow up HIV viral load, CD4 count and genotype. Follow-up LDH 1 3 beta D glucan. ID started Mepron to cover P MARTINEZ and avoiding Bactrim due to renal failure. We started steroids given the new hypoxia. ID also initiated ART with lamivudine, darunavir plus ritonavir and dolutegravir given the possibility of HIVAN. Consider pulmonary consultation. Nephrology following. Renal ultrasound shows signs of CKD. Nephrology to discuss hemodialysis initiation. Continue strict I's and O's daily and monitor renal function closely 05/12/2021. Patient is s/p placement of a right internal jugular tunneled cuffed hemodialysis catheter and initiation of hemodialysis on 05/11/2021. Patient is also undergo further hemodialysis today. CM consult to place patient at [place] [facility]. We will follow up HIV viral load, CD4 count and genotype. Follow-up LDH 1 3 beta D glucan. ID started Mepron to cover P MARTINEZ and avoiding Bactrim due to renal failure. ID also initiated ART with lamivudine, darunavir plus ritonavir and dolutegravir given the possibility of HIVAN. Continue steroids given the hypoxia. Respiratory status has significantly improved after hemodialysis. I believe volume overload was the most significantly contributing factor/etiology. Follow-up serial chest x-ray. Patient currently with 2 L nasal cannula satting at 99% 05/13/2021. Continue hemodialysis per nephrology recommendations. Await outpatient arrangements for hemodialysis unit. We will follow up HIV viral load, CD4 count and genotype. Follow-up LDH 1 3 beta D glucan. ID started Mepron to cover P MARTINEZ and avoiding Bactrim due to renal failure. ID also initiated ART with lamivudine, darunavir plus ritonavir and dolutegravir given the possibility of HIVAN. Continue steroids given the hypoxia and change from Solu-Medrol IV to dexamethasone. Procalcitonin level was elevated at 6. We will continue IV antibiotics per ID recommendations 05/14/2021. Continue hemodialysis per nephrology recommendations. Await outpatient arrangements for hemodialysis unit. We will follow up HIV viral load, CD4 count and genotype. Follow-up LDH 1 3 beta D glucan. ID started Mepron to cover P MARTINEZ and avoiding Bactrim due to renal failure. ID also initiated ART with lamivudine, darunavir plus ritonavir and dolutegravir given the possibility of HIVAN. Continue dexamethasone. Patient to follow-up with [facility] in early May. Case management follow-up with regards to home ART before follow-up with the health department 05/15/2021. Continue hemodialysis per nephrology recommendations. Await outpatient arrangements for hemodialysis unit. Patient wants anxiety medication prior to dialysis. We will start Xanax 0.25 mg as needed. Continue lamivudine, darunavir plus ritonavir and dolutegravir given the possibility of HIVAN. Continue dexamethasone. Patient to follow-up with health department in early May. Case management follow-up with regards to home ART before follow-up with the health department 05/16/2021. Continue hemodialysis per nephrology recommendations. Await outpa tient arrangements for hemodialysis unit. Renal US showed CKD signs. Strict I&O's daily. Obtain daily weights. Continue Xanax prior to hemodialysis for anxiety. Continue lamivudine, darunavir plus ritonavir and dolutegravir given the possibility of HIVAN. Continue dexamethasone. Patient to follow-up with health department in early May. Patient with elevated diastolic BP greater than 100. We will start Procardia 30 mg twice daily. 05/17/2021. Patient to be initiated on MWF hemodialysis schedule. Patient requesting Xanax for anxiety prior to hemodialysis session. Await outpatient a rrangements for hemodialysis unit per case management. Renal ultrasound revealed signs of chronic kidney disease. Continue strict I&O's daily. Obtain daily weights. Continue lamivudine, darunavir plus ritonavir and dolutegravir given the possibility of HIVAN. Continue dexamethasone. Patient to follow-up with health department in early May. Patient's BP much better controlled with the addition of Procardia. 05/18: Hemodialysis was discontinued yesterday after 1 hour if patient request as he was feeling weak with hypotension. BP remains low to 80s. Given NS bolus management this morning. Procardia discontinued. Bumex is on hold. Excellent urine. Still feeling weak. Remains anxious. Asking to be sedated during dialysis. CXR ordered daily Dr. Graves shows mild localized subcutaneous emphysema and right-sided neck pain currently dialysis catheter is placed. A CT chest showed diabetes mellitus with emphysema-like cough. Vascular surgery is addressing this. Sinus tachycardia stable. On room air without acute respite distress at rest. Discussed with the patient, nursing staff and vascular surgery. 05/19:Patient is feeling much better after undergoing hemodialysis for 3 hours today.Breathing much better. Mild subcutis emphysema in the right supraclavicular fossa seems stable. This is assisted by pulmonary in consultation and reevaluation by today. No acute intervention required, expected to resolve by itself. Looks more comfortable and less anxious. R emains on 3 L of O2. 05/20: No acute events. Remains on 3 L O2. Pneumomediastinum and subcutaneous emphysema stable. Bactrim changed from p.o. to IV. Sinus tach worse today and received Lopressor IV x1 dose. Discussed with ID. 05/21: No acute events, stable, awaiting outpatient dialysis arrangements for discharge. 05/22: Chronic anxiety, better. Since tachycardia stable. Remains on 2 to 3 d ays of O2. Stable for discharge pending outpatient dialysis arrangements. Discussed with CM. 05/23: Remains stable for discharge pending outpatient dialysis arrangements by CM. 05/24: Remains stable for discharge pending outpatient dialysis treatments with CM. 05/25: Remains stable for discharge pending outpatient dialysis treatments with CM. Continue IV Bactrim per ID recommendations to complete a total of 21 days. Patient should also have tapering steroids over the next 21 days. ART was s tarted on 05/10/2021. Continue fluconazole 200 mg every 24 hours x3 weeks 05/26: Continue Bactrim, steroids, ART and fluconazole. Patient with plans to discharge when outpatient hemodialysis chair available. History Interval history: No new issues overnight Hospitalist Physical - Constitutional Vitals: Temp Pulse Resp BP Pulse Ox 98.0 F 139 H 20 139/89 98 05/27/21 04:06 05/27/21 07:35 05/27/21 06:05 05/27/21 04:06 05/27/21 04:06 General appearance: Present: no acute distress, well-nourished - EENT Eyes: Present: PERRL, EOM intact ENT: hearing intact, clear oral mucosa, dentition normal - Neck Neck: Present: supple, normal ROM - Respiratory Respiratory effort: normal Respiratory: bilateral: CTA - Cardiovascular Rhythm: regular Heart Sounds: Present: S1 & S2. Absent: gallop, rub - Extremities Extremities: no ischemia, No edema, Full ROM - Abdominal General gastrointestinal: soft, non-tender, non-distended, normal bowel sounds - Integumentary Integumentary: Present: clear, warm, dry - Neurologic Neurologic: CNII-XII intact, moves all extremities HEART Score - HEART Score Troponin: Troponin T 0.011 ng/mL (0.00-0.029) 05/19/21 06:50 Results - Labs CBC & Chem 7: 05/25/21 05:36 05/25/21 05:36 Labs: Laboratory Last Values WBC 4.5 K/mm3 (4.5-11.0) 05/25/21 05:36 RBC 2.45 M/mm3 (3.65-5.03) L 05/25/21 05:36 Hgb 7.5 gm/dl (11.8-15.2) L 05/25/21 05:36 Hct 23.5 % (35.5-45.6) L 05/25/21 05:36 MCV 96 fl (84-94) H 05/25/21 05:36 MCH 31 pg (28-32) 05/25/21 05:36 MCHC 32 % (32-34) 05/25/21 05:36 RDW 17.5 % (13.2-15.2) H 05/25/21 05:36 Plt Count 278 K/mm3 (140-440) 05/25/21 05:36 Lymph % (Auto) Not Reportable 05/20/21 09:45 [place] % (Auto) Not Reportable 05/20/21 09:45 Eos % (Auto) Not Reportable 05/20/21 09:45 Baso % (Auto) Not Reportable 05/20/21 09:45 Lymph # (Auto) Not Reportable 05/20/21 09:45 [place] # (Auto) Not Reportable 05/20/21 09:45 Eos # (Auto) Not Reportable 05/20/21 09:45 Baso # (Auto) Not Reportable 05/20/21 09:45 Add Manual Diff Complete 05/25/21 05:36 Total Counted 100 05/25/21 05:36 Seg Neutrophils % Soft Iron Inspector 05/20/21 09:45 Seg Neuts % (Manual) 91.0 % (40.0-70.0) H 05/25/21 05:36 Band Neutrophils % 0 % 05/25/21 05:36 Lymphocytes % (Manual) 5.0 % (13.4-35.0) L 05/25/21 05:36 Reactive Lymphs % (Man) 0 % 05/25/21 05:36 Monocytes % (Manual) 4.0 % (0.0-7.3) 05/25/21 05:36 Eosinophils % (Manual) 0 % (0.0-4.3) 05/25/21 05:36 Basophils % (Manual) 0 % (0.0-1.8) 05/25/21 05:36 Metamyelocytes % 0 % 05/25/21 05:36 Myelocytes % 0 % 05/25/21 05:36 Promyelocytes % 0 % 05/25/21 05:36 Blast Cells % 0 % 05/25/21 05:36 Nucleated RBC % Not Reportable 05/25/21 05:36 Seg Neutrophils # Not Reportable 05/20/21 09:45 Seg Neutrophils # Man 4.1 K/mm3 (1.8-7.7) 05/25/21 05:36 Band Neutrophils # 0.0 K/mm3 05/25/21 05:36 Abs Lymphs (Manual) 291 cells/uL (850-3900) L 05/10/21 17:09 Lymphocytes # (Manual) 0.2 K/mm3 (1.2-5.4) L 05/25/21 05:36 Abs React Lymphs (Man) 0.0 K/mm3 05/25/21 05:36 Monocytes # (Manual) 0.2 K/mm3 (0.0-0.8) 05/25/21 05:36 Eosinophils # (Manual) 0.0 K/mm3 (0.0-0.4) 05/25/21 05:36 Basophils # (Manual) 0.0 K/mm3 (0.0-0.1) 05/25/21 05:36 Metamyelocytes # 0.0 K/mm3 05/25/21 05:36 Myelocytes # 0.0 K/mm3 05/25/21 05:36 Promyelocytes # 0.0 K/mm3 05/25/21 05:36 Blast Cells # 0.0 K/mm3 05/25/21 05:36 WBC Morphology Not Reportable 05/25/21 05:36 Hypersegmented Neuts Not Reportable 05/25/21 05:36 Hyposegmented Neuts Not Reportable 05/25/21 05:36 Hypogranular Neuts Not Reportable 05/25/21 05:36 Smudge Cells Not Reportable 05/25/21 05:36 Toxic Granulation Not Reportable 05/25/21 05:36 Toxic Vacuolation Not Reportable 05/25/21 05:36 Dohle Bodies Rare 05/25/21 05:36 Pelger-Huet Anomaly Not Reportable 05/25/21 05:36 Karishma Rods Not Reportable 05/25/21 05:36 Platelet Estimate Consistent w auto 05/25/21 05:36 Clumped Platelets Not Reportable 05/25/21 05:36 Plt Clumps, EDTA Not Reportable 05/25/21 05:36 Large Platelets Not Reportable 05/25/21 05:36 Giant Platelets Not Reportable 05/25/21 05:36 Platelet Satelliting Not Reportable 05/25/21 05:36 Plt Morphology Comment Not Reportable 05/25/21 05:36 RBC Morphology Not Reportable 05/25/21 05:36 Dimorphic RBCs Not Reportable 05/25/21 05:36 Polychromasia Not Reportable 05/25/21 05:36 Hypochromasia Not Reportable 05/25/21 05:36 Poikilocytosis Not Reportable 05/25/21 05:36 Anisocytosis 1+ 05/25/21 05:36 Microcytosis Not Reportable 05/25/21 05:36 Macrocytosis Not Reportable 05/25/21 05:36 Spherocytes Not Reportable 05/25/21 05:36 Pappenheimer Bodies Not Reportable 05/25/21 05:36 Sickle Cells Not Reportable 05/25/21 05:36 Target Cells Not Reportable 05/25/21 05:36 Tear Drop Cells Not Reportable 05/25/21 05:36 Ovalocytes Not Reportable 05/25/21 05:36 Helmet Cells Not Reportable 05/25/21 05:36 Bragg-[place] Bodies Not Reportable 05/25/21 05:36 Partridge Rings Not Reportable 05/25/21 05:36 Bernarda Cells Not Reportable 05/25/21 05:36 Bite Cells Not Reportable 05/25/21 05:36 Crenated Cell Not Reportable 05/25/21 05:36 Elliptocytes Not Reportable 05/25/21 05:36 Acanthocytes (Spur) Not Reportable 05/25/21 05:36 Rouleaux Not Reportable 05/25/21 05:36 Hemoglobin C Crystals Not Reportable 05/25/21 05:36 Schistocytes Not Reportable 05/25/21 05:36 Malaria parasites Not Reportable 05/25/21 05:36 Angus Bodies Not Reportable 05/25/21 05:36 Hem Pathologist Commnt No 05/25/21 05:36 D-Dimer 730.16 ng/mlDDU (0-234) H 05/10/21 09:45 Sodium 135 mmol/L (137-145) L 05/25/21 05:36 Potassium 3.4 mmol/L (3.6-5.0) L 05/25/21 05:36 Chloride 97.7 mmol/L (98-107) L 05/25/21 05:36 Carbon Dioxide 23 mmol/L (22-30) 05/25/21 05:36 Anion Gap 18 mmol/L 05/25/21 05:36 BUN 38 mg/dL (9-20) H 05/25/21 05:36 Creatinine 4.6 mg/dL (0.8-1.3) H 05/25/21 05:36 Estimated GFR 17 ml/min 05/25/21 05:36 BUN/Creatinine Ratio 8 % 05/25/21 05:36 Glucose 113 mg/dL (75-100) H 05/25/21 05:36 Lactic Acid 2.10 mmol/L (0.7-2.0) H* 05/11/21 09:53 Calcium 8.6 mg/dL (8.4-10.2) 05/25/21 05:36 Magnesium 1.60 mg/dL (1.7-2.3) L 05/25/21 05:36 Ferritin 1426.0 ng/mL (30.0-300.0) H 05/10/21 09:45 Total Bilirubin < 0.20 mg/dL (0.1-1.2) 05/25/21 05:36 AST 33 units/L (5-40) 05/25/21 05:36 ALT 31 units/L (7-56) 05/25/21 05:36 Alkaline Phosphatase 85 units/L (35-129) 05/25/21 05:36 Lactate Dehydrogenase 600 units/L (91-180) H 05/10/21 09:45 Lactate Dehydrogenase 623 units/L (91-180) H 05/10/21 09:45 Total Creatine Kinase 31 units/L (55-170) L 05/10/21 09:45 CK-MB (CK-2) < 1.0 ng/mL (0.0-4.0) 05/10/21 09:45 CK-MB (CK-2) Rel Index 3.2 (0-4) 05/10/21 09:45 Troponin T 0.011 ng/mL (0.00-0.029) 05/19/21 06:50 C-Reactive Protein 8.90 mg/dL (0.00-1.30) H 05/10/21 09:45 C-Reactive Protein 9.00 mg/dL (0.00-1.30) H 05/10/21 09:45 NT-Pro-B Natriuret Pep 4065 pg/mL (0-450) H 05/10/21 09:45 Total Protein 6.6 g/dL (6.3-8.2) 05/25/21 05:36 Albumin 2.6 g/dL (3.9-5) L 05/25/21 05:36 Albumin/Globulin Ratio 0.7 % 05/25/21 05:36 Procalcitonin 6.81 ng/mL (<0.15) 05/10/21 09:45 TSH 2.390 mlU/mL (0.270-4.200) 05/10/21 09:45 Free T4 0.94 ng/dL (0.76-1.46) 05/10/21 09:45 Urine Color Yellow (Yellow) 05/10/21 13:49 Urine Turbidity Clear (Clear) 05/10/21 13:49 Urine pH 8.0 (5.0-7.0) H 05/10/21 13:49 Ur Specific [place] 1.025 (1.003-1.030) 05/10/21 13:49 Urine Protein 100 mg/dl mg/dL (Negative) 05/10/21 13:49 Urine Glucose (UA) Negative mg/dL (Negative) 05/10/21 13:49 Urine Ketones Negative mg/dL (Negative) 05/10/21 13:49 Urine Blood Negative (Negative) 05/10/21 13:49 Urine Nitrite Negative (Negative) 05/10/21 13:49 Ur Reducing Substances Not Reportable 05/10/21 13:49 Urine Bilirubin Negative (Negative) 05/10/21 13:49 Urine Ictotest Not Reportable 05/10/21 13:49 Urine Urobilinogen 0.0 mg/dL (<2.0) 05/10/21 13:49 Ur Leukocyte Esterase Negative (Negative) 05/10/21 13:49 Urine WBC (Auto) 2.0 /HPF (0.0-6.0) 05/10/21 13:49 Urine RBC (Auto) < 1.0 /HPF (0.0-6.0) 05/10/21 13:49 U Epithel Cells (Auto) 1.0 /HPF (0-13.0) 05/10/21 13:49 Lymph Enumerat CD4/CD8 0.00 (0.86-5.00) L 05/10/21 17:09 % CD3 Cells 78 % (57-85) 05/10/21 17:09 Absolute CD3 Count 228 cells/uL (840-3060) L 05/10/21 17:09 % CD4 Cells 0 % (30-61) L 05/10/21 17:09 Absolute CD4 Count 0 cells/uL (490-1740) L 05/10/21 17:09 % CD8 Cells 78 % (12-42) H 05/10/21 17:09 Absolute CD8 Count 239 cells/uL (180-1170) 05/10/21 17:09 % CD19 Cells 1 % (6-29) L 05/10/21 17:09 Absolute CD19 Count 2 cells/uL (110-660) L 05/10/21 17:09 Coronavirus (PCR) Positive (Negative) A 05/24/21 10:50 Hepatitis A IgM Ab Non-reactive (NonReactive) 05/11/21 09:53 Hep Bs Antigen Non-reactive (Negative) 05/11/21 09:53 Hep B Core IgM Ab Non-reactive (NonReactive) 05/11/21 09:53 Hepatitis C Antibody Non-reactive (NonReactive) 05/11/21 09:53 HIV-1 RNA PCR copies/ml 22317 Copies/mL H 05/10/21 17:09 HIV-1 RNA (PCR) log 4.71 Log cps/mL H 05/10/21 17:09 HIV-1 Genotyping Detected H 05/11/21 09:53 Miscellaneous Test Flexitest 1 H 05/11/21 12:41 Krishnan/IV: Voiding Method Urinal Active Medications - Current Medications Current Medications: Generic Name Dose Route Start Last Admin Trade Name Freq PRN Reason Stop Dose Admin Acetaminophen 650 mg 05/10/21 11:26 05/20/21 09:00 Acetaminophen 325 Mg Tab PO 650 mg Q4H PRN Administration Pain MILD(1-3)/Fever >100.5/LANGLEY Albuterol 2.5 mg 05/10/21 11:26 05/21/21 20:05 Albuterol 2.5 Mg/3 Ml Nebu IH 2.5 mg Q4HRT PRN Administration Shortness Of Breath Alprazolam 0.25 mg 05/15/21 09:38 05/26/21 10:14 Alprazolam 0.25 Mg Tab PO 0.25 mg DAILY PRN Administration Anxiety Ascorbic Acid 500 mg 05/10/21 22:00 05/26/21 22:12 Ascorbic Acid 500 Mg Tab PO 500 mg BID SANTOS Administration Bumetanide 1 mg 05/20/21 22:00 05/26/21 22:12 Bumetanide 1 Mg/4 Ml Inj IV 1 mg BID SANTOS Administration Cholecalciferol 1,000 unit 05/21/21 12:00 05/26/21 13:55 Cholecalciferol (Vit D3) 1000 Unit (25 Mcg) Tab PO 1,000 unit QDAY SANTOS Administration Darunavir 800 mg 05/10/21 14:45 03/02/22 09:11 Darunavir 800 Mg Tab PO 800 mg QDAY SANTOS Administration Dolutegravir Sodium 50 mg 05/10/21 15:00 05/26/21 08:59 Dolutegravir 50 Mg Tab PO 50 mg QDAY SANTOS Administration Fluconazole 200 mg 05/19/21 19:00 05/26/21 09:11 Fluconazole 200 Mg Tab PO 06/08/21 10:01 200 mg QDAY SANTOS Administration Protocol Guaifenesin 200 mg 05/25/21 08:25 05/27/21 04:23 Guaifenesin 100 Mg/5 Ml Oral Liqd PO 200 mg Q4H PRN Administration Cough Heparin Sodium (Porcine) 5,000 unit 05/10/21 22:00 05/26/21 22:12 Heparin 5,000 Unit/1 Ml Vial SUB-Q 5,000 unit Q12HR SANTOS Administration Hydralazine HCl 10 mg 05/23/21 21:30 05/26/21 17:37 Hydralazine 20 Mg/1 Ml Inj IV 10 mg Q4HR PRN Administration Blood Pressure Sodium Chloride 100 mls @ 999 mls/hr 05/13/21 13:10 Nacl 0.9% IV TRENT PRN Hypotension Lamivudine 100 mg 05/10/21 15:00 05/26/21 09:01 Lamivudine 50 Mg/5 Ml Oral Liqd PO 100 mg DAILY SANTOS Administration Metoprolol Succinate 25 mg 05/22/21 11:00 05/27/21 07:35 Metoprolol Succinate Xl 25 Mg Tab PO 25 mg QDAY SANTOS Administration Multivitamins/Minerals 1 each 05/11/21 10:00 05/26/21 10:14 Multivitamins,Ther W-Minerals Tab PO 1 each QDAY SANTOS Administration Ondansetron HCl 4 mg 05/10/21 11:26 05/20/21 12:16 Ondansetron 4 Mg/2 Ml Inj IV 4 mg Q8H PRN Administration Nausea And Vomiting Prednisone 30 mg 05/15/21 10:00 05/26/21 09:10 Prednisone 10 Mg Tab PO 30 mg QDAY SANTOS Administration Ritonavir 100 mg 05/10/21 15:00 05/26/21 10:15 Ritonavir 100 Mg Tab PO 100 mg QDAY SANTOS Administration Sodium Bicarbonate 1,300 mg 05/10/21 14:00 05/26/21 19:26 Sodium Bicarbonate 650 Mg Tab PO 1,300 mg TID SANTOS Administration Sodium Chloride 10 ml 05/10/21 22:00 05/26/21 22:12 Sodium Chloride 0.9% 10 Ml Flush Syringe IV 10 ml BID SANTOS Administration Sodium Chloride 10 ml 05/10/21 11:26 Sodium Chloride 0.9% 10 Ml Flush Syringe IV PRN PRN LINE FLUSH Trimethoprim/Sulfamethoxazole 1 each 05/26/21 10:00 05/26/21 22:11 Sulfamethoxazole/Trimethoprim 800/160mg Ds Tab PO 06/03/21 23:59 1 each Q12HR SANTOS Administration Protocol Trimethoprim/Sulfamethoxazole 0.5 each 06/04/21 22:00 Sulfamethoxazole/Trimethoprim 800/160mg Ds Tab PO MoWeFr SANTOS Zinc Sulfate 220 mg 05/10/21 22:00 05/26/21 22:12 Zinc Sulfate 220 Mg Cap PO 220 mg BID SANTOS Administration Zolpidem Tartrate 5 mg 05/22/21 22:00 05/27/21 00:09 Zolpidem 5 Mg Tab PO 5 mg QHS PRN Administration Sleep Nutrition/Malnutrition Assess - Dietary Evaluation Nutrition/Malnutrition Findings: Nutrition Notes Start: 05/11/21 12:44 Freq: Status: Active Protocol: Document 05/21/21 17:00 DALY (Rec: 05/21/21 17:33 DALY [id number]) Nutrition Notes Initial or Follow up Reassessment Current Diagnosis Acute Kidney Injury,CKD (stage V CKD),Sepsis,Respiratory Failure,Malnutrition Other Pertinent Diagnosis COVID-19/Pneumonia, BILLIE/CKD/ ESRD+HD, HIV/Nephropathy/AIDS, Esophagitis ... Current Diet Renal Diet (since D 05/14), D Suppl (since D 05/14). Labs/Tests 05/21: Na 130, Cl 88.4, BUN 69 , Crea 6.6, Glu 137. Pertinent Medications 05/21: nutritionally unremarkable. Height 6 ft 2 in Weight 55.3 kg [place] Body Weight (kg) 86.36 BMI 15.6 Weight change and time frame 0.5 Kg body weight loss in 1 week reported. Weight Status Underweight Subjective/Other Information RD consult for Dietary advancement, % intake of meals , and body weight change. Pt continues on Renal Diet and Nepro ONS TID, and receiving PBJ sandwichwes on each meal. Pt's PO intake of meals has been Poor (25%), according to ADL notes. 0.5 Kg body weight loss in 1 week reported. Percent of energy/protein needs met: Prescribed Renal Diet provides for energy/protein needs (2, 072 Kcal/77 g) during LOS; additionally, Dietary Supplements will compensate for possible poor or insufficient PO intake of meals with 1,275 Kcal and 57 g of protein. Burn Absent Trauma Absent GI Symptoms None Food Allergy No Skin Integrity/Comment Redness, Dryness. Current % PO Poor (25-49%) Minimum of two criteria Yes #1 Nutrition Diagnosis Underweight Diagnosis Progress(for reassessment Continues documentation) Is patient on ventilator? No Is Patient Ambulatory and/or Out of Bed Yes REE-([facility]-ambulatory/OOB) [ 1992.575 [id number]] Calculation Used for Recommendations [facility] Additional Notes Protein: >1.2 g/Kg; >67 g/day. Fluids: 1 ml/Kcal, or as per MD. Nutrition Intervention Change Diet Order: Continue Renal Diet and Pt's Preferred food items. Add Supplement/Snack (indicate name/kcal Continue 8 fl oz Nepro w/ /protein ) CARBSTEADY; TID. Provides kCal: 1,275 Provides Protein (gm) 57 Goal #1 Compensate, through dietary supplementation, for possible poor or insufficient PO intake of meals during LOS. Goal #2 Maintain body weight within +/ -3% of admission body weight during LOS. Follow-Up By: 05/28/21 Additional Comments Continue monitoring food tolerance, %PO intake of meals , and BM.
[2021-05-27] MEDS: predniSONE 10 MG TAB PO SCH (09:37)
[2021-05-27] MEDS: BUMETANIDE 1 MG/4 ML INJ IV SCH ×2 (09:38→22:00)
[2021-05-27] MEDS: DARUNAVIR 800 MG TAB PO SCH (09:39)
[2021-05-27] MEDS: lamiVUDine 50 MG/5 ML ORAL LIQD PO SCH (09:39)
[2021-05-27] MEDS: DOLUTEGRAVIR 50 MG TAB PO SCH (09:39)
[2021-05-27] MEDS: MULTIVITAMINS,THER W-MINERALS TAB PO SCH (09:40)
[2021-05-27] MEDS: ASCORBIC ACID 500 MG TAB PO SCH ×2 (09:40→22:01)
[2021-05-27] MEDS: ZINC SULFATE 220 MG CAP PO SCH ×2 (09:40→22:02)
[2021-05-27] MEDS: HEPARIN 5,000 UNIT/1 ML VIAL SUB-Q SCH ×2 (09:40→22:00)
[2021-05-27] MEDS: CHOLECALCIFEROL (VIT D3) 1000 UNIT (25 mcg) TAB PO SCH (09:40)
[2021-05-27] MEDS: FLUCONAZOLE 200 MG TAB PO SCH (09:41)
[2021-05-27] MEDS: RITONAVIR 100 MG TAB PO SCH (09:42)
[2021-05-27] MEDS: SODIUM BICARBONATE 650 MG TAB PO SCH ×3 (09:42→20:59)
[2021-05-27] MEDS: SULFAMETHOXAZOLE/TRIMETHOPRIM 800/160MG DS TAB PO SCH ×2 (09:42→22:03)
--- NOTE | 2021-05-27 09:48 | Progress Note ---
Assessment and Plan Assessment and plan: 40-year-old male who was recently hospitalized and discharged earlier this month with a new diagnosis of HIV and suspected AIDS with associated renal dysfunction. Patient was also noted to have a diagnosis of COVID-19 pneumonia during that admission but not hypoxic at that time. Patient was recommended for outpatient follow-up with [facility]. 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 HIV associated nephropathy Accelerated hypertension Acute renal failure. COVID-19. Patient initially tested + 04/24/2021 but not a candidate for remdesivir. Acute hypoxic respiratory failure. Etiology secondary to Covid versus renal failure versus PCP pneumonia. Persistent sinus tachycardia 05/11/2021. ID has been consulted and we will follow up HIV viral load, CD4 count and genotype. Follow-up LDH 1 3 beta D glucan. ID started Mepron to cover P MARTINEZ and avoiding Bactrim due to renal failure. We started steroids given the new hypoxia. ID also initiated ART with lamivudine, darunavir plus ritonav ir and dolutegravir given the possibility of HIVAN. Consider pulmonary consultation. Nephrology following. Renal ultrasound shows signs of CKD. Nephrology to discuss hemodialysis initiation. Continue strict I's and O's daily and monitor renal function closely 05/12/2021. Patient is s/p placement of a right internal jugular tunneled cuffed hemodialysis catheter and initiation of hemodialysis on 05/11/2021. Patient is also undergo further hemodialysis today. CM consult to place patient at [facility] dialysis unit. We will follow up HIV viral load, CD4 count and genotype. Follow-up LDH 1 3 beta D glucan. ID started Mepron to cover P MARTINEZ and avoiding Bactrim due to renal failure. ID also initiated ART with lamivudine, darunavir plus ritonavir and dolutegravir given the possibility of HIVAN. Continue steroids given the hypoxia. Respiratory status has significantly improved after hemodialysis. I believe volume overload was the most significantly contributing factor/etiology. Follow-up serial chest x-ray. Patient currently with 2 L nasal cannula satting at 99% 05/13/2021. Continue hemodialysis per nephrology recommendations. Await outpatient arrangements for hemodialysis unit. We will follow up HIV viral load, CD4 count and genotype. Follow-up LDH 1 3 beta D glucan. ID started Mepron to cover P MARTINEZ and avoiding Bactrim due to renal failure. ID also initiated ART with lamivudine, darunavir plus ritonavir and dolutegravir given the possibility of HIVAN. Continue steroids given the hypoxia and change from Solu-Medrol IV to dexamethasone. Procalcitonin level was elevated at 6. We will continue IV antibiotics per ID recommendations 05/14/2021. Continue hemodialysis per nephrology recommendations. Await outpatient arrangements for hemodialysis unit. We will follow up HIV viral load, CD4 count and genotype. Follow-up LDH 1 3 beta D glucan. ID started Me pron to cover P MARTINEZ and avoiding Bactrim due to renal failure. ID also initiated ART with lamivudine, darunavir plus ritonavir and dolutegravir given the possibility of HIVAN. Continue dexamethasone. Patient to follow-up with health department in early May. Case management follow-up with regards to home ART before follow-up with the health department 05/15/2021. Continue hemodialysis per nephrology recommendations. Await outpatient arrangements for hemodialysis unit. Patient wants anxiety medication prior to dialysis. We will start Xanax 0.25 mg as needed. Continue lamivudine, darunavir plus ritonavir and dolutegravir given the possibility of HIVAN. Continue dexamethasone. Patient to follow-up with health department in early May. Case management follow-up with regards to home ART before follow-up with the health department 05/16/2021. Continue hemodialysis per nephrology recommendations. Await outpatient arrangements for hemodialysis unit. Renal US showed CKD signs. Strict I&O's daily. Obtain daily weights. Continue Xanax prior to hemodialysis for anxiety. Continue lamivudine, darunavir plus ritonavir and dolutegravir given the possibility of HIVAN. Continue dexamethasone. Patient to follow-up with health department in early May. Patient with elevated diastolic BP greater than 100. We will start Procardia 30 mg twice daily. 05/17/2021. Patient to be initiated on F hemodialysis schedule. Patient requesting Xanax for anxiety prior to hemodialysis session. Await outpatient arrangements for hemodialysis unit per case management. Renal ultrasound revealed signs of chronic kidney disease. Continue strict I&O's daily. Obtain daily weights. Continue lamivudine, darunavir plus ritonavir and dolutegravir given the possibility of HIVAN. Continue dexamethasone. Patient to follow-up with health department in early May. Patient's BP much better controlled with the addition of Procardia. 05/18: Hemodialysis was discontinued yesterday after 1 hour if patient request as he was feeling weak with hypotension. BP remains low to 80s. Given NS bolus management this morning. Procardia discontinued. Bumex is on hold. Excellent urine. Still feeling weak. Remains anxious. Asking to be sedated during dialysis. CXR ordered daily Dr. Graves shows mild localized subcutaneous emphysema and right-sided neck pain currently dialysis catheter is placed. A CT chest showed diabetes mellitus with emphysema-like cough. Vascular surgery is addressing this. Sinus tachycardia stable. On room air without acute respite distress at rest. Discussed with the patient, nursing staff and vascular surgery. 05/19:Patient is feeling much better after undergoing hemodialysis for 3 hours today.Breathing much better. Mild subcutis emphysema in the right supraclavicular fossa seems stable. This is assisted by pulmonary in consultation and reevaluation by today. No acute intervention required, expected to resolve by itself. Looks more comfortable and less anxious. Remains on 3 L of O2. 05/20: No acute events. Remains on 3 L O2. Pneumomediastinum and subcutaneous emphysema stable. Bactrim changed from p.o. to IV. Sinus tach worse today and received Lopressor IV x1 dose. Discussed with ID. 05/21: No acute events, stable, awaiting outpatient dialysis arrangements for discharge. 05/22: Chronic anxiety, better. Since tachycardia stable. Remains on 2 to 3 days of O2. Stable for discharge pending outpatient dialysis arrangements. Discussed with CM. 05/23: Remains stable for discharge pending outpatient dialysis arrangements by CM. 05/24: Remains stable for discharge pending outpatient dialysis treatments with CM. 05/25: Remains stable for discharge pending outpatient dialysis treatments with CM. Continue IV Bactrim per ID recommendations to complete a total of 21 days. Patient should also have tapering steroids over the next 21 days. ART was started on 05/10/2021. Continue fluconazole 200 mg every 24 hours x3 weeks 05/26: Continue Bactrim, steroids, ART and fluconazole. Patient with plans to discharge when outpatient hemodialysis chair available. 05/27: Patient with persistent sinus tachycardia. Consider cardiology consultation. Check echocardiogram. Continue metoprolol 25 mg p.o. daily for now. Continue Bactrim, steroids, ART and fluconazole. Patient with plans to discharge when outpatient hemodialysis chair available. History Interval history: No new issues overnight Hospitalist Physical - Constitutional Vitals: Temp Pulse Resp BP Pulse Ox 98.0 F 139 H 20 139/89 98 05/27/21 04:06 05/27/21 07:35 05/27/21 06:05 05/27/21 04:06 05/27/21 04:06 General appearance: Present: no acute distress, well-nourished - EENT Eyes: Present: PERRL, EOM intact ENT: hearing intact, clear oral mucosa, dentition normal - Neck Neck: Present: supple, normal ROM - Respiratory Respiratory effort: normal Respiratory: bilateral: CTA - Cardiovascular Rhythm: regular Heart Sounds: Present: S1 & S2. Absent: gallop, rub - Extremities Extremities: no ischemia, No edema, Full ROM - Abdominal General gastrointestinal: soft, non-tender, non-distended, normal bowel sounds - Integumentary Integumentary: Present: clear, warm, dry - Neurologic Neurologic: CNII-XII intact, moves all extremities HEART Score - HEART Score Troponin: Troponin T 0.011 ng/mL (0.00-0.029) 05/19/21 06:50 Results - Labs CBC & Chem 7: 05/25/21 05:36 05/25/21 05:36 Labs: Laboratory Last Values WBC 4.5 K/mm3 (4.5-11.0) 05/25/21 05:36 RBC 2.45 M/mm3 (3.65-5.03) L 05/25/21 05:36 Hgb 7.5 gm/dl (11.8-15.2) L 05/25/21 05:36 Hct 23.5 % (35.5-45.6) L 05/25/21 05:36 MCV 96 fl (84-94) H 05/25/21 05:36 MCH 31 pg (28-32) 05/25/21 05:36 MCHC 32 % (32-34) 05/25/21 05:36 RDW 17.5 % (13.2-15.2) H 05/25/21 05:36 Plt Count 278 K/mm3 (140-440) 05/25/21 05:36 Lymph % (Auto) Not Reportable 05/20/21 09:45 Forrest % (Auto) Not Reportable 05/20/21 09:45 Eos % (Auto) Not Reportable 05/20/21 09:45 Baso % (Auto) Not Reportable 05/20/21 09:45 Lymph # (Auto) Not Reportable 05/20/21 09:45 Forrest # (Auto) Not Reportable 05/20/21 09:45 Eos # (Auto) Not Reportable 05/20/21 09:45 Baso # (Auto) Not Reportable 05/20/21 09:45 Add Manual Diff Complete 05/25/21 05:36 Total Counted 100 05/25/21 05:36 Seg Neutrophils % [employer] 05/20/21 09:45 Seg Neuts % (Manual) 91.0 % (40.0-70.0) H 05/25/21 05:36 Band Neutrophils % 0 % 05/25/21 05:36 Lymphocytes % (Manual) 5.0 % (13.4-35.0) L 05/25/21 05:36 Reactive Lymphs % (Man) 0 % 05/25/21 05:36 Monocytes % (Manual) 4.0 % (0.0-7.3) 05/25/21 05:36 Eosinophils % (Manual) 0 % (0.0-4.3) 05/25/21 05:36 Basophils % (Manual) 0 % (0.0-1.8) 05/25/21 05:36 Metamyelocytes % 0 % 05/25/21 05:36 Myelocytes % 0 % 05/25/21 05:36 Promyelocytes % 0 % 05/25/21 05:36 Blast Cells % 0 % 05/25/21 05:36 Nucleated RBC % Not Reportable 05/25/21 05:36 Seg Neutrophils # Not Reportable 05/20/21 09:45 Seg Neutrophils # Man 4.1 K/mm3 (1.8-7.7) 05/25/21 05:36 Band Neutrophils # 0.0 K/mm3 05/25/21 05:36 Abs Lymphs (Manual) 291 cells/uL (850-3900) L 05/10/21 17:09 Lymphocytes # (Manual) 0.2 K/mm3 (1.2-5.4) L 05/25/21 05:36 Abs React Lymphs (Man) 0.0 K/mm3 05/25/21 05:36 Monocytes # (Manual) 0.2 K/mm3 (0.0-0.8) 05/25/21 05:36 Eosinophils # (Manual) 0.0 K/mm3 (0.0-0.4) 05/25/21 05:36 Basophils # (Manual) 0.0 K/mm3 (0.0-0.1) 05/25/21 05:36 Metamyelocytes # 0.0 K/mm3 05/25/21 05:36 Myelocytes # 0.0 K/mm3 05/25/21 05:36 Promyelocytes # 0.0 K/mm3 05/25/21 05:36 Blast Cells # 0.0 K/mm3 05/25/21 05:36 WBC Morphology Not Reportable 05/25/21 05:36 Hypersegmented Neuts Not Reportable 05/25/21 05:36 Hyposegmented Neuts Not Reportable 05/25/21 05:36 Hypogranular Neuts Not Reportable 05/25/21 05:36 Smudge Cells Not Reportable 05/25/21 05:36 Toxic Granulation Not Reportable 05/25/21 05:36 Toxic Vacuolation Not Reportable 05/25/21 05:36 Dohle Bodies Rare 05/25/21 05:36 Pelger-Huet Anomaly Not Reportable 05/25/21 05:36 Karishma Rods Not Reportable 05/25/21 05:36 Platelet Estimate Consistent w auto 05/25/21 05:36 Clumped Platelets Not Reportable 05/25/21 05:36 Plt Clumps, EDTA Not Reportable 05/25/21 05:36 Large Platelets Not Reportable 05/25/21 05:36 Giant Platelets Not Reportable 05/25/21 05:36 Platelet Satelliting Not Reportable 05/25/21 05:36 Plt Morphology Comment Not Reportable 05/25/21 05:36 RBC Morphology Not Reportable 05/25/21 05:36 Dimorphic RBCs Not Reportable 05/25/21 05:36 Polychromasia Not Reportable 05/25/21 05:36 Hypochromasia Not Reportable 05/25/21 05:36 Poikilocytosis Not Reportable 05/25/21 05:36 Anisocytosis 1+ 05/25/21 05:36 Microcytosis Not Reportable 05/25/21 05:36 Macrocytosis Not Reportable 05/25/21 05:36 Spherocytes Not Reportable 05/25/21 05:36 Pappenheimer Bodies Not Reportable 05/25/21 05:36 Sickle Cells Not Reportable 05/25/21 05:36 Target Cells Not Reportable 05/25/21 05:36 Tear Drop Cells Not Reportable 05/25/21 05:36 Ovalocytes Not Reportable 05/25/21 05:36 Helmet Cells Not Reportable 05/25/21 05:36 Bragg-Nevis Bodies Not Reportable 05/25/21 05:36 [place] Rings Not Reportable 05/25/21 05:36 Bernarda Cells Not Reportable 05/25/21 05:36 Bite Cells Not Reportable 05/25/21 05:36 Crenated Cell Not Reportable 05/25/21 05:36 Elliptocytes Not Reportable 05/25/21 05:36 Acanthocytes (Spur) Not Reportable 05/25/21 05:36 Rouleaux Not Reportable 05/25/21 05:36 Hemoglobin C Crystals Not Reportable 05/25/21 05:36 Schistocytes Not Reportable 05/25/21 05:36 Malaria parasites Not Reportable 05/25/21 05:36 Angus Bodies Not Reportable 05/25/21 05:36 Hem Pathologist Commnt No 05/25/21 05:36 D-Dimer 730.16 ng/mlDDU (0-234) H 05/10/21 09:45 Sodium 135 mmol/L (137-145) L 05/25/21 05:36 Potassium 3.4 mmol/L (3.6-5.0) L 05/25/21 05:36 Chloride 97.7 mmol/L (98-107) L 05/25/21 05:36 Carbon Dioxide 23 mmol/L (22-30) 05/25/21 05:36 Anion Gap 18 mmol/L 05/25/21 05:36 BUN 38 mg/dL (9-20) H 05/25/21 05:36 Creatinine 4.6 mg/dL (0.8-1.3) H 05/25/21 05:36 Estimated GFR 17 ml/min 05/25/21 05:36 BUN/Creatinine Ratio 8 % 05/25/21 05:36 Glucose 113 mg/dL (75-100) H 05/25/21 05:36 Lactic Acid 2.10 mmol/L (0.7-2.0) H* 05/11/21 09:53 Calcium 8.6 mg/dL (8.4-10.2) 05/25/21 05:36 Magnesium 1.60 mg/dL (1.7-2.3) L 05/25/21 05:36 Ferritin 1426.0 ng/mL (30.0-300.0) H 05/10/21 09:45 Total Bilirubin < 0.20 mg/dL (0.1-1.2) 05/25/21 05:36 AST 33 units/L (5-40) 05/25/21 05:36 ALT 31 units/L (7-56) 05/25/21 05:36 Alkaline Phosphatase 85 units/L (35-129) 05/25/21 05:36 Lactate Dehydrogenase 600 units/L (91-180) H 05/10/21 09:45 Lactate Dehydrogenase 623 units/L (91-180) H 05/10/21 09:45 Total Creatine Kinase 31 units/L (55-170) L 05/10/21 09:45 CK-MB (CK-2) < 1.0 ng/mL (0.0-4.0) 05/10/21 09:45 CK-MB (CK-2) Rel Index 3.2 (0-4) 05/10/21 09:45 Troponin T 0.011 ng/mL (0.00-0.029) 05/19/21 06:50 C-Reactive Protein 8.90 mg/dL (0.00-1.30) H 05/10/21 09:45 C-Reactive Protein 9.00 mg/dL (0.00-1.30) H 05/10/21 09:45 NT-Pro-B Natriuret Pep 4065 pg/mL (0-450) H 05/10/21 09:45 Total Protein 6.6 g/dL (6.3-8.2) 05/25/21 05:36 Albumin 2.6 g/dL (3.9-5) L 05/25/21 05:36 Albumin/Globulin Ratio 0.7 % 05/25/21 05:36 Procalcitonin 6.81 ng/mL (<0.15) 05/10/21 09:45 TSH 2.390 mlU/mL (0.270-4.200) 05/10/21 09:45 Free T4 0.94 ng/dL (0.76-1.46) 05/10/21 09:45 Urine Color Yellow (Yellow) 05/10/21 13:49 Urine Turbidity Clear (Clear) 05/10/21 13:49 Urine pH 8.0 (5.0-7.0) H 05/10/21 13:49 Ur Specific [place] 1.025 (1.003-1.030) 05/10/21 13:49 Urine Protein 100 mg/dl mg/dL (Negative) 05/10/21 13:49 Urine Glucose (UA) Negative mg/dL (Negative) 05/10/21 13:49 Urine Ketones Negative mg/dL (Negative) 05/10/21 13:49 Urine Blood Negative (Negative) 05/10/21 13:49 Urine Nitrite Negative (Negative) 05/10/21 13:49 Ur Reducing Substances Not Reportable 05/10/21 13:49 Urine Bilirubin Negative (Negative) 05/10/21 13:49 Urine Ictotest Not Reportable 05/10/21 13:49 Urine Urobilinogen 0.0 mg/dL (<2.0) 05/10/21 13:49 Ur Leukocyte Esterase Negative (Negative) 05/10/21 13:49 Urine WBC (Auto) 2.0 /HPF (0.0-6.0) 05/10/21 13:49 Urine RBC (Auto) < 1.0 /HPF (0.0-6.0) 05/10/21 13:49 U Epithel Cells (Auto) 1.0 /HPF (0-13.0) 05/10/21 13:49 Lymph Enumerat CD4/CD8 0.00 (0.86-5.00) L 05/10/21 17:09 % CD3 Cells 78 % (57-85) 05/10/21 17:09 Absolute CD3 Count 228 cells/uL (840-3060) L 05/10/21 17:09 % CD4 Cells 0 % (30-61) L 05/10/21 17:09 Absolute CD4 Count 0 cells/uL (490-1740) L 05/10/21 17:09 % CD8 Cells 78 % (12-42) H 05/10/21 17:09 Absolute CD8 Count 239 cells/uL (180-1170) 05/10/21 17:09 % CD19 Cells 1 % (6-29) L 05/10/21 17:09 Absolute CD19 Count 2 cells/uL (110-660) L 05/10/21 17:09 Coronavirus (PCR) Positive (Negative) A 05/24/21 10:50 Hepatitis A IgM Ab Non-reactive (NonReactive) 05/11/21 09:53 Hep Bs Antigen Non-reactive (Negative) 05/11/21 09:53 Hep B Core IgM Ab Non-reactive (NonReactive) 05/11/21 09:53 Hepatitis C Antibody Non-reactive (NonReactive) 05/11/21 09:53 HIV-1 RNA PCR copies/ml 35771 Copies/mL H 05/10/21 17:09 HIV-1 RNA (PCR) log 4.71 Log cps/mL H 05/10/21 17:09 HIV-1 Genotyping Detected H 05/11/21 09:53 Miscellaneous Test Flexitest 1 H 05/11/21 12:41 Krishnan/IV: Voiding Method Urinal Active Medications - Current Medications Current Medications: Generic Name Dose Route Start Last Admin Trade Name Freq PRN Reason Stop Dose Admin Acetaminophen 650 mg 05/10/21 11:26 05/20/21 09:00 Acetaminophen 325 Mg Tab PO 650 mg Q4H PRN Administration Pain MILD(1-3)/Fever >100.5/LANGLEY Albuterol 2.5 mg 05/10/21 11:26 05/21/21 20:05 Albuterol 2.5 Mg/3 Ml Nebu IH 2.5 mg Q4HRT PRN Administration Shortness Of Breath Alprazolam 0.25 mg 05/15/21 09:38 05/26/21 10:14 Alprazolam 0.25 Mg Tab PO 0.25 mg DAILY PRN Administration Anxiety Ascorbic Acid 500 mg 05/10/21 22:00 05/27/21 09:40 Ascorbic Acid 500 Mg Tab PO 500 mg BID SANTOS Administration Bumetanide 1 mg 05/20/21 22:00 05/27/21 09:38 Bumetanide 1 Mg/4 Ml Inj IV 1 mg BID SANTOS Administration Cholecalciferol 1,000 unit 05/21/21 12:00 05/27/21 09:40 Cholecalciferol (Vit D3) 1000 Unit (25 Mcg) Tab PO 1,000 unit QDAY SANTOS Administration Darunavir 800 mg 05/10/21 14:45 05/27/21 09:39 Darunavir 800 Mg Tab PO 800 mg QDAY SANTOS Administration Dolutegravir Sodium 50 mg 05/10/21 15:00 05/27/21 09:39 Dolutegravir 50 Mg Tab PO 50 mg QDAY SANTOS Administration Fluconazole 200 mg 05/19/21 19:00 05/27/21 09:41 Fluconazole 200 Mg Tab PO 06/08/21 10:01 200 mg QDAY SANTOS Administration Protocol Guaifenesin 200 mg 05/25/21 08:25 05/27/21 04:23 Guaifenesin 100 Mg/5 Ml Oral Liqd PO 200 mg Q4H PRN Administration Cough Heparin Sodium (Porcine) 5,000 unit 05/10/21 22:00 05/27/21 09:40 Heparin 5,000 Unit/1 Ml Vial SUB-Q 5,000 unit Q12HR SANTOS Administration Hydralazine HCl 10 mg 05/23/21 21:30 05/26/21 17:37 Hydralazine 20 Mg/1 Ml Inj IV 10 mg Q4HR PRN Administration Blood Pressure Sodium Chloride 100 mls @ 999 mls/hr 05/13/21 13:10 Nacl 0.9% IV TRENT PRN Hypotension Lamivudine 100 mg 05/10/21 15:00 05/27/21 09:39 Lamivudine 50 Mg/5 Ml Oral Liqd PO 100 mg DAILY SANTOS Administration Metoprolol Succinate 25 mg 05/22/21 11:00 05/27/21 07:35 Metoprolol Succinate Xl 25 Mg Tab PO 25 mg QDAY SANTOS Administration Multivitamins/Minerals 1 each 05/11/21 10:00 05/27/21 09:40 Multivitamins,Ther W-Minerals Tab PO 1 each QDAY SANTOS Administration Ondansetron HCl 4 mg 05/10/21 11:26 05/20/21 12:16 Ondansetron 4 Mg/2 Ml Inj IV 4 mg Q8H PRN Administration Nausea And Vomiting Prednisone 30 mg 05/15/21 10:00 05/27/21 09:37 Prednisone 10 Mg Tab PO 30 mg QDAY SANTOS Administration Ritonavir 100 mg 05/10/21 15:00 05/27/21 09:42 Ritonavir 100 Mg Tab PO 100 mg QDAY SANTOS Administration Sodium Bicarbonate 1,300 mg 05/10/21 14:00 05/27/21 09:42 Sodium Bicarbonate 650 Mg Tab PO 1,300 mg TID SANTOS Administration Sodium Chloride 10 ml 05/10/21 22:00 05/27/21 09:42 Sodium Chloride 0.9% 10 Ml Flush Syringe IV 10 ml BID SANTOS Administration Sodium Chloride 10 ml 05/10/21 11:26 Sodium Chloride 0.9% 10 Ml Flush Syringe IV PRN PRN LINE FLUSH Trimethoprim/Sulfamethoxazole 1 each 05/26/21 10:00 05/27/21 09:42 Sulfamethoxazole/Trimethoprim 800/160mg Ds Tab PO 06/03/21 23:59 1 each Q12HR SANTOS Administration Protocol Trimethoprim/Sulfamethoxazole 0.5 each 06/04/21 22:00 Sulfamethoxazole/Trimethoprim 800/160mg Ds Tab PO MoWeFr SANTOS Zinc Sulfate 220 mg 05/10/21 22:00 05/27/21 09:40 Zinc Sulfate 220 Mg Cap PO 220 mg BID SANTOS Administration Zolpidem Tartrate 5 mg 05/22/21 22:00 05/27/21 00:09 Zolpidem 5 Mg Tab PO 5 mg QHS PRN Administration Sleep Nutrition/Malnutrition Assess - Dietary Evaluation Nutrition/Malnutrition Findings: Nutrition Notes Start: 05/11/21 12:44 Freq: Status: Active Protocol: Document 05/21/21 17:00 DALY (Rec: 05/21/21 17:33 DALY [id number]) Nutrition Notes Initial or Follow up Reassessment Current Diagnosis Acute Kidney Injury,CKD (stage V CKD),Sepsis,Respiratory Failure,Malnutrition Other Pertinent Diagnosis COVID-19/Pneumonia, BILLIE/CKD/ ESRD+HD, HIV/Nephropathy/AIDS, Esophagitis ... Current Diet Renal Diet (since D 05/14), D Suppl (since D 05/14). Labs/Tests 05/21: Na 130, Cl 88.4, BUN 69 , Crea 6.6, Glu 137. Pertinent Medications 05/21: nutritionally unremarkable. Height 6 ft 2 in Weight 55.3 kg [facility] Body Weight (kg) 86.36 BMI 15.6 Weight change and time frame 0.5 Kg body weight loss in 1 week reported. Weight Status Underweight Subjective/Other Information RD consult for Dietary advancement, % intake of meals , and body weight change. Pt continues on Renal Diet and Nepro ONS TID, and receiving PBJ sandwichwes on each meal. Pt's PO intake of meals has been Poor (25%), according to ADL notes. 0.5 Kg body weight loss in 1 week reported. Percent of energy/protein needs met: Prescribed Renal Diet provides for energy/protein needs (2, 072 Kcal/77 g) during LOS; additionally, Dietary Supplements will compensate for possible poor or insufficient PO intake of meals with 1,275 Kcal and 57 g of protein. Burn Absent Trauma Absent GI Symptoms None Food Allergy No Skin Integrity/Comment Redness, Dryness. Current % PO Poor (25-49%) Minimum of two criteria Yes #1 Nutrition Diagnosis Underweight Diagnosis Progress(for reassessment Continues documentation) Is patient on ventilator? No Is Patient Ambulatory and/or Out of Bed Yes REE-([facility]-ambulatory/OOB) [ [id number] [id number]] Calculation Used for Recommendations [facility] Additional Notes Protein: >1.2 g/Kg; >67 g/day. Fluids: 1 ml/Kcal, or as per MD. Nutrition Intervention Change Diet Order: Continue Renal Diet and Pt's Preferred food items. Add Supplement/Snack (indicate name/kcal Continue 8 fl oz Nepro w/ /protein ) CARBSTEADY; TID. Provides kCal: 1,275 Provides Protein (gm) 57 Goal #1 Compensate, through dietary supplementation, for possible poor or insufficient PO intake of meals during LOS. Goal #2 Maintain body weight within +/ -3% of admission body weight during LOS. Follow-Up By: 05/28/21 Additional Comments Continue monitoring food tolerance, %PO intake of meals , and BM.
--- NOTE | 2021-05-27 13:01 | Progress Note ---
Assessment and Plan Cultures: 05/10/2021 blood culture: no growth 05/11/2021 COVID-19 PCR: Positive 05/11/2021 serum cryptococcal antigen: Negative HIV Viral load: 51,000 CD4 count: 0 Fungitell strongly positive, >500 Previous admission labs reviewed: Negative for syphilis, C. difficile PCR, hepatitis panel 04/24/2021 COVID-19 PCR: Positive A/P: 40-year-old male who was recently hospitalized and discharged earlier this month with a new diagnosis of HIV and suspected AIDS along with renal dysfunction. He was also diagnosed with COVID-19 during that admission. He was recommended outpatient follow-up with [facility]. Now readmitted with generalized weakness, worsening shortness of breath: #HIV/AIDS, ?HIVAN: Establishing care for ongoing HIV care is critical now with CD4 count of 0 #COVID-19: Initially tested positive on 04/24/2021, not a candidate for Remdesivir. #Acute hypoxic resp failure: ?COVID v/s renal failure v/s PCP pneumonia. #Pneumomediastinum: likely PCP related, common cause of spontaneous pneumothorax/pneumomediastinum. #PJP pneumonia: Given symptoms and positive Fungitell, likely PJP pneumonia. Fungitell can be falsely elevated by hemodialysis, however would treat empirically #Acute renal failure: ?HIVAN. Nephrology following. Now on HD. #Esophagitis: on fluconazole. Recs: -Discussed with Dr. Martinez, will switch to IV Bactrim for a few days, when ready for discharge, can convert back to PO Bactrim . 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 Please call with questions MD [facility] O: [phone] F: [phone] Subjective Date of service: 05/27/21 Principal diagnosis: ESRD Interval history: Afebrile, normal white count. Objective - Exam Narrative Exam: Physical Exam Constitutional: Alert, cooperative. No acute distress Head, Ears, Nose: Normocephalic, atraumatic. External ears, nose normal Eyes: Conjunctivae/corneas clear. No icterus. No ptosis. Neck: Supple, no meningeal signs Cardiovascular: S1, S2 + Respiratory: AE fair b/l, occ crackles GI: Soft, non-tender; bowel sounds normal. No peritoneal signs Musculoskeletal: No pedal edema, no cyanosis. Skin: No rash or abscess Hem/Lymphatic: No palpable cervical or supraclavicular nodes. Psych: Mood ok. Affect normal Neurological: Awake, alert, oriented. No gross abnormality - Constitutional Vitals: Vital Signs Temp Pulse Resp BP Pulse Ox 100.0 F H 139 H 18 147/105 88 05/27/21 11:57 05/27/21 11:57 05/27/21 11:57 05/27/21 11:57 05/27/21 11:57 Temperature -Last 24 Hours Temperature 100.0 F Temperature 98.0 F Temperature 98.5 F Temperature 98.9 F Temperature 98.9 F - Labs CBC & Chem 7: 05/25/21 05:36 05/25/21 05:36
[2021-05-27] MEDS: ALPRAZolam 0.25 MG TAB PO PRN (15:01)
[2021-05-28] MEDS: ALPRAZolam 0.25 MG TAB PO PRN (08:58)
--- NOTE | 2021-05-28 10:03 | Progress Note ---
Assessment and Plan Assessment and plan: 40-year-old male who was recently hospitalized and discharged earlier this month with a new diagnosis of HIV and suspected AIDS with associated renal dysfunction. Patient was also noted to have a diagnosis of COVID-19 pneumonia during that admission but not hypoxic at that time. Patient was recommended for outpatient follow-up with [facility]. 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 HIV associated nephropathy Accelerated hypertension Acute renal failure. COVID-19. Patient initially tested + 04/24/2021 but not a candidate for remdesivir. Acute hypoxic respiratory failure. Etiology secondary to Covid versus renal failure versus PCP pneumonia. Persistent sinus tachycardia 05/11/2021. ID has been consulted and we will follow up HIV viral load, CD4 count and genotype. Follow-up LDH 1 3 beta D glucan. ID started Mepron to cover P MARTINEZ and avoiding Bactrim due to renal failure. We started steroids given the new hypoxia. ID also initiated ART with lamivudine, darunavir plus ritonav ir and dolutegravir given the possibility of HIVAN. Consider pulmonary consultation. Nephrology following. Renal ultrasound shows signs of CKD. Nephrology to discuss hemodialysis initiation. Continue strict I's and O's daily and monitor renal function closely 05/12/2021. Patient is s/p placement of a right internal jugular tunneled cuffed hemodialysis catheter and initiation of hemodialysis on 05/11/2021. Patient is also undergo further hemodialysis today. CM consult to place patient at [facility] dialysis unit. We will follow up HIV viral load, CD4 count and genotype. Follow-up LDH 1 3 beta D glucan. ID started Mepron to cover P MARTINEZ and avoiding Bactrim due to renal failure. ID also initiated ART with lamivudine, darunavir plus ritonavir and dolutegravir given the possibility of HIVAN. Continue steroids given the hypoxia. Respiratory status has significantly improved after hemodialysis. I believe volume overload was the most significantly contributing factor/etiology. Follow-up serial chest x-ray. Patient currently with 2 L nasal cannula satting at 99% 05/13/2021. Continue hemodialysis per nephrology recommendations. Await outpatient arrangements for hemodialysis unit. We will follow up HIV viral load, CD4 count and genotype. Follow-up LDH 1 3 beta D glucan. ID started Mepron to cover P MARTINEZ and avoiding Bactrim due to renal failure. ID also initiated ART with lamivudine, darunavir plus ritonavir and dolutegravir given the possibility of HIVAN. Continue steroids given the hypoxia and change from Solu-Medrol IV to dexamethasone. Procalcitonin level was elevated at 6. We will continue IV antibiotics per ID recommendations 05/14/2021. Continue hemodialysis per nephrology recommendations. Await outpatient arrangements for hemodialysis unit. We will follow up HIV viral load, CD4 count and genotype. Follow-up LDH 1 3 beta D glucan. ID started Me pron to cover P MARTINEZ and avoiding Bactrim due to renal failure. ID also initiated ART with lamivudine, darunavir plus ritonavir and dolutegravir given the possibility of HIVAN. Continue dexamethasone. Patient to follow-up with health department in early May. Case management follow-up with regards to home ART before follow-up with the health department 05/15/2021. Continue hemodialysis per nephrology recommendations. Await outpatient arrangements for hemodialysis unit. Patient wants anxiety medication prior to dialysis. We will start Xanax 0.25 mg as needed. Continue lamivudine, darunavir plus ritonavir and dolutegravir given the possibility of HIVAN. Continue dexamethasone. Patient to follow-up with health department in early May. Case management follow-up with regards to home ART before follow-up with the health department 05/16/2021. Continue hemodialysis per nephrology recommendations. Await outpatient arrangements for hemodialysis unit. Renal US showed CKD signs. Strict I&O's daily. Obtain daily weights. Continue Xanax prior to hemodialysis for anxiety. Continue lamivudine, darunavir plus ritonavir and dolutegravir given the possibility of HIVAN. Continue dexamethasone. Patient to follow-up with health department in early May. Patient with elevated diastolic BP greater than 100. We will start Procardia 30 mg twice daily. 05/17/2021. Patient to be initiated on F hemodialysis schedule. Patient requesting Xanax for anxiety prior to hemodialysis session. Await outpatient arrangements for hemodialysis unit per case management. Renal ultrasound revealed signs of chronic kidney disease. Continue strict I&O's daily. Obtain daily weights. Continue lamivudine, darunavir plus ritonavir and dolutegravir given the possibility of HIVAN. Continue dexamethasone. Patient to follow-up with health department in early May. Patient's BP much better controlled with the addition of Procardia. 05/18: Hemodialysis was discontinued yesterday after 1 hour if patient request as he was feeling weak with hypotension. BP remains low to 80s. Given NS bolus management this morning. Procardia discontinued. Bumex is on hold. Excellent urine. Still feeling weak. Remains anxious. Asking to be sedated during dialysis. CXR ordered daily Dr. Graves shows mild localized subcutaneous emphysema and right-sided neck pain currently dialysis catheter is placed. A CT chest showed diabetes mellitus with emphysema-like cough. Vascular surgery is addressing this. Sinus tachycardia stable. On room air without acute respite distress at rest. Discussed with the patient, nursing staff and vascular surgery. 05/19:Patient is feeling much better after undergoing hemodialysis for 3 hours today.Breathing much better. Mild subcutis emphysema in the right supraclavicular fossa seems stable. This is assisted by pulmonary in consultation and reevaluation by today. No acute intervention required, expected to resolve by itself. Looks more comfortable and less anxious. Remains on 3 L of O2. 05/20: No acute events. Remains on 3 L O2. Pneumomediastinum and subcutaneous emphysema stable. Bactrim changed from p.o. to IV. Sinus tach worse today and received Lopressor IV x1 dose. Discussed with ID. 05/21: No acute events, stable, awaiting outpatient dialysis arrangements for discharge. 05/22: Chronic anxiety, better. Since tachycardia stable. Remains on 2 to 3 days of O2. Stable for discharge pending outpatient dialysis arrangements. Discussed with CM. 05/23: Remains stable for discharge pending outpatient dialysis arrangements by CM. 05/24: Remains stable for discharge pending outpatient dialysis treatments with CM. 05/25: Remains stable for discharge pending outpatient dialysis treatments with CM. Continue IV Bactrim per ID recommendations to complete a total of 21 days. Patient should also have tapering steroids over the next 21 days. ART was started on 05/10/2021. Continue fluconazole 200 mg every 24 hours x3 weeks 05/26: Continue Bactrim, steroids, ART and fluconazole. Patient with plans to discharge when outpatient hemodialysis chair available. 05/27: Patient with persistent sinus tachycardia. Consider cardiology consultation. Check echocardiogram. Continue metoprolol 25 mg p.o. daily for now. Continue Bactrim, steroids, ART and fluconazole. Patient with plans to discharge when outpatient hemodialysis chair available. 05/28: Follow-up echocardiogram results. Increase metoprolol to 50 mg p.o. daily. Continue Bactrim, steroids, ART and fluconazole. Patient with plans to discharge when outpatient hemodialysis chair available. History Interval history: No new issues overnight Hospitalist Physical - Constitutional Vitals: Temp Pulse Resp BP Pulse Ox 98.5 F 119 H 20 141/101 100 05/28/21 04:43 05/28/21 09:00 05/28/21 09:00 05/28/21 04:43 05/28/21 09:00 General appearance: Present: no acute distress, well-nourished - EENT Eyes: Present: PERRL, EOM intact ENT: hearing intact, clear oral mucosa, dentition normal - Neck Neck: Present: supple, normal ROM - Respiratory Respiratory effort: normal Respiratory: bilateral: CTA - Cardiovascular Rhythm: regular Heart Sounds: Present: S1 & S2. Absent: gallop, rub - Extremities Extremities: no ischemia, No edema, Full ROM - Abdominal General gastrointestinal: soft, non-tender, non-distended, normal bowel sounds - Integumentary Integumentary: Present: clear, warm, dry - Neurologic Neurologic: CNII-XII intact, moves all extremities HEART Score - HEART Score Troponin: Troponin T 0.011 ng/mL (0.00-0.029) 05/19/21 06:50 Results - Labs CBC & Chem 7: 05/25/21 05:36 05/25/21 05:36 Labs: Laboratory Last Values WBC 4.5 K/mm3 (4.5-11.0) 05/25/21 05:36 RBC 2.45 M/mm3 (3.65-5.03) L 05/25/21 05:36 Hgb 7.5 gm/dl (11.8-15.2) L 05/25/21 05:36 Hct 23.5 % (35.5-45.6) L 05/25/21 05:36 MCV 96 fl (84-94) H 05/25/21 05:36 MCH 31 pg (28-32) 05/25/21 05:36 MCHC 32 % (32-34) 05/25/21 05:36 RDW 17.5 % (13.2-15.2) H 05/25/21 05:36 Plt Count 278 K/mm3 (140-440) 05/25/21 05:36 Lymph % (Auto) Not Reportable 05/20/21 09:45 Falls % (Auto) Not Reportable 05/20/21 09:45 Eos % (Auto) Not Reportable 05/20/21 09:45 Baso % (Auto) Not Reportable 05/20/21 09:45 Lymph # (Auto) Not Reportable 05/20/21 09:45 Falls # (Auto) Not Reportable 05/20/21 09:45 Eos # (Auto) Not Reportable 05/20/21 09:45 Baso # (Auto) Not Reportable 05/20/21 09:45 Add Manual Diff Complete 05/25/21 05:36 Total Counted 100 05/25/21 05:36 Seg Neutrophils % Flower Grower 05/20/21 09:45 Seg Neuts % (Manual) 91.0 % (40.0-70.0) H 05/25/21 05:36 Band Neutrophils % 0 % 05/25/21 05:36 Lymphocytes % (Manual) 5.0 % (13.4-35.0) L 05/25/21 05:36 Reactive Lymphs % (Man) 0 % 05/25/21 05:36 Monocytes % (Manual) 4.0 % (0.0-7.3) 05/25/21 05:36 Eosinophils % (Manual) 0 % (0.0-4.3) 05/25/21 05:36 Basophils % (Manual) 0 % (0.0-1.8) 05/25/21 05:36 Metamyelocytes % 0 % 05/25/21 05:36 Myelocytes % 0 % 05/25/21 05:36 Promyelocytes % 0 % 05/25/21 05:36 Blast Cells % 0 % 05/25/21 05:36 Nucleated RBC % Not Reportable 05/25/21 05:36 Seg Neutrophils # Not Reportable 05/20/21 09:45 Seg Neutrophils # Man 4.1 K/mm3 (1.8-7.7) 05/25/21 05:36 Band Neutrophils # 0.0 K/mm3 05/25/21 05:36 Abs Lymphs (Manual) 291 cells/uL (850-3900) L 05/10/21 17:09 Lymphocytes # (Manual) 0.2 K/mm3 (1.2-5.4) L 05/25/21 05:36 Abs React Lymphs (Man) 0.0 K/mm3 05/25/21 05:36 Monocytes # (Manual) 0.2 K/mm3 (0.0-0.8) 05/25/21 05:36 Eosinophils # (Manual) 0.0 K/mm3 (0.0-0.4) 05/25/21 05:36 Basophils # (Manual) 0.0 K/mm3 (0.0-0.1) 05/25/21 05:36 Metamyelocytes # 0.0 K/mm3 05/25/21 05:36 Myelocytes # 0.0 K/mm3 05/25/21 05:36 Promyelocytes # 0.0 K/mm3 05/25/21 05:36 Blast Cells # 0.0 K/mm3 05/25/21 05:36 WBC Morphology Not Reportable 05/25/21 05:36 Hypersegmented Neuts Not Reportable 05/25/21 05:36 Hyposegmented Neuts Not Reportable 05/25/21 05:36 Hypogranular Neuts Not Reportable 05/25/21 05:36 Smudge Cells Not Reportable 05/25/21 05:36 Toxic Granulation Not Reportable 05/25/21 05:36 Toxic Vacuolation Not Reportable 05/25/21 05:36 Dohle Bodies Rare 05/25/21 05:36 Pelger-Huet Anomaly Not Reportable 05/25/21 05:36 Karishma Rods Not Reportable 05/25/21 05:36 Platelet Estimate Consistent w auto 05/25/21 05:36 Clumped Platelets Not Reportable 05/25/21 05:36 Plt Clumps, EDTA Not Reportable 05/25/21 05:36 Large Platelets Not Reportable 05/25/21 05:36 Giant Platelets Not Reportable 05/25/21 05:36 Platelet Satelliting Not Reportable 05/25/21 05:36 Plt Morphology Comment Not Reportable 05/25/21 05:36 RBC Morphology Not Reportable 05/25/21 05:36 Dimorphic RBCs Not Reportable 05/25/21 05:36 Polychromasia Not Reportable 05/25/21 05:36 Hypochromasia Not Reportable 05/25/21 05:36 Poikilocytosis Not Reportable 05/25/21 05:36 Anisocytosis 1+ 05/25/21 05:36 Microcytosis Not Reportable 05/25/21 05:36 Macrocytosis Not Reportable 05/25/21 05:36 Spherocytes Not Reportable 05/25/21 05:36 Pappenheimer Bodies Not Reportable 05/25/21 05:36 Sickle Cells Not Reportable 05/25/21 05:36 Target Cells Not Reportable 05/25/21 05:36 Tear Drop Cells Not Reportable 05/25/21 05:36 Ovalocytes Not Reportable 05/25/21 05:36 Helmet Cells Not Reportable 05/25/21 05:36 [place] Bodies Not Reportable 05/25/21 05:36 [place] Rings Not Reportable 05/25/21 05:36 Bernarda Cells Not Reportable 05/25/21 05:36 Bite Cells Not Reportable 05/25/21 05:36 Crenated Cell Not Reportable 05/25/21 05:36 Elliptocytes Not Reportable 05/25/21 05:36 Acanthocytes (Spur) Not Reportable 05/25/21 05:36 Rouleaux Not Reportable 05/25/21 05:36 Hemoglobin C Crystals Not Reportable 05/25/21 05:36 Schistocytes Not Reportable 05/25/21 05:36 Malaria parasites Not Reportable 05/25/21 05:36 Angus Bodies Not Reportable 05/25/21 05:36 Hem Pathologist Commnt No 05/25/21 05:36 D-Dimer 730.16 ng/mlDDU (0-234) H 05/10/21 09:45 Sodium 135 mmol/L (137-145) L 05/25/21 05:36 Potassium 3.4 mmol/L (3.6-5.0) L 05/25/21 05:36 Chloride 97.7 mmol/L (98-107) L 05/25/21 05:36 Carbon Dioxide 23 mmol/L (22-30) 05/25/21 05:36 Anion Gap 18 mmol/L 05/25/21 05:36 BUN 38 mg/dL (9-20) H 05/25/21 05:36 Creatinine 4.6 mg/dL (0.8-1.3) H 05/25/21 05:36 Estimated GFR 17 ml/min 05/25/21 05:36 BUN/Creatinine Ratio 8 % 05/25/21 05:36 Glucose 113 mg/dL (75-100) H 05/25/21 05:36 Lactic Acid 2.10 mmol/L (0.7-2.0) H* 05/11/21 09:53 Calcium 8.6 mg/dL (8.4-10.2) 05/25/21 05:36 Magnesium 1.60 mg/dL (1.7-2.3) L 05/25/21 05:36 Ferritin 1426.0 ng/mL (30.0-300.0) H 05/10/21 09:45 Total Bilirubin < 0.20 mg/dL (0.1-1.2) 05/25/21 05:36 AST 33 units/L (5-40) 05/25/21 05:36 ALT 31 units/L (7-56) 05/25/21 05:36 Alkaline Phosphatase 85 units/L (35-129) 05/25/21 05:36 Lactate Dehydrogenase 600 units/L (91-180) H 05/10/21 09:45 Lactate Dehydrogenase 623 units/L (91-180) H 05/10/21 09:45 Total Creatine Kinase 31 units/L (55-170) L 05/10/21 09:45 CK-MB (CK-2) < 1.0 ng/mL (0.0-4.0) 05/10/21 09:45 CK-MB (CK-2) Rel Index 3.2 (0-4) 05/10/21 09:45 Troponin T 0.011 ng/mL (0.00-0.029) 05/19/21 06:50 C-Reactive Protein 8.90 mg/dL (0.00-1.30) H 05/10/21 09:45 C-Reactive Protein 9.00 mg/dL (0.00-1.30) H 05/10/21 09:45 NT-Pro-B Natriuret Pep 4065 pg/mL (0-450) H 05/10/21 09:45 Total Protein 6.6 g/dL (6.3-8.2) 05/25/21 05:36 Albumin 2.6 g/dL (3.9-5) L 05/25/21 05:36 Albumin/Globulin Ratio 0.7 % 05/25/21 05:36 Procalcitonin 6.81 ng/mL (<0.15) 05/10/21 09:45 TSH 2.390 mlU/mL (0.270-4.200) 05/10/21 09:45 Free T4 0.94 ng/dL (0.76-1.46) 05/10/21 09:45 Urine Color Yellow (Yellow) 05/10/21 13:49 Urine Turbidity Clear (Clear) 05/10/21 13:49 Urine pH 8.0 (5.0-7.0) H 05/10/21 13:49 Ur Specific Squire 1.025 (1.003-1.030) 05/10/21 13:49 Urine Protein 100 mg/dl mg/dL (Negative) 05/10/21 13:49 Urine Glucose (UA) Negative mg/dL (Negative) 05/10/21 13:49 Urine Ketones Negative mg/dL (Negative) 05/10/21 13:49 Urine Blood Negative (Negative) 05/10/21 13:49 Urine Nitrite Negative (Negative) 05/10/21 13:49 Ur Reducing Substances Not Reportable 05/10/21 13:49 Urine Bilirubin Negative (Negative) 05/10/21 13:49 Urine Ictotest Not Reportable 05/10/21 13:49 Urine Urobilinogen 0.0 mg/dL (<2.0) 05/10/21 13:49 Ur Leukocyte Esterase Negative (Negative) 05/10/21 13:49 Urine WBC (Auto) 2.0 /HPF (0.0-6.0) 05/10/21 13:49 Urine RBC (Auto) < 1.0 /HPF (0.0-6.0) 05/10/21 13:49 U Epithel Cells (Auto) 1.0 /HPF (0-13.0) 05/10/21 13:49 Lymph Enumerat CD4/CD8 0.00 (0.86-5.00) L 05/10/21 17:09 % CD3 Cells 78 % (57-85) 05/10/21 17:09 Absolute CD3 Count 228 cells/uL (840-3060) L 05/10/21 17:09 % CD4 Cells 0 % (30-61) L 05/10/21 17:09 Absolute CD4 Count 0 cells/uL (490-1740) L 05/10/21 17:09 % CD8 Cells 78 % (12-42) H 05/10/21 17:09 Absolute CD8 Count 239 cells/uL (180-1170) 05/10/21 17:09 % CD19 Cells 1 % (6-29) L 05/10/21 17:09 Absolute CD19 Count 2 cells/uL (110-660) L 05/10/21 17:09 Coronavirus (PCR) Positive (Negative) A 05/24/21 10:50 Hepatitis A IgM Ab Non-reactive (NonReactive) 05/11/21 09:53 Hep Bs Antigen Non-reactive (Negative) 05/11/21 09:53 Hep B Core IgM Ab Non-reactive (NonReactive) 05/11/21 09:53 Hepatitis C Antibody Non-reactive (NonReactive) 05/11/21 09:53 HIV-1 RNA PCR copies/ml 25592 Copies/mL H 05/10/21 17:09 HIV-1 RNA (PCR) log 4.71 Log cps/mL H 05/10/21 17:09 HIV-1 Genotyping Detected H 05/11/21 09:53 Miscellaneous Test Flexitest 1 H 05/11/21 12:41 Krishnan/IV: Voiding Method Urinal Active Medications - Current Medications Current Medications: Generic Name Dose Route Start Last Admin Trade Name Freq PRN Reason Stop Dose Admin Acetaminophen 650 mg 05/10/21 11:26 05/20/21 09:00 Acetaminophen 325 Mg Tab PO 650 mg Q4H PRN Administration Pain MILD(1-3)/Fever >100.5/LANGLEY Albuterol 2.5 mg 05/10/21 11:26 05/21/21 20:05 Albuterol 2.5 Mg/3 Ml Nebu IH 2.5 mg Q4HRT PRN Administration Shortness Of Breath Alprazolam 0.25 mg 05/15/21 09:38 05/28/21 08:58 Alprazolam 0.25 Mg Tab PO 0.25 mg DAILY PRN Administration Anxiety Ascorbic Acid 500 mg 05/10/21 22:00 05/27/21 22:01 Ascorbic Acid 500 Mg Tab PO 500 mg BID SANTOS Administration Bumetanide 1 mg 05/20/21 22:00 05/27/21 22:00 Bumetanide 1 Mg/4 Ml Inj IV 1 mg BID SANTOS Administration Cholecalciferol 1,000 unit 05/21/21 12:00 05/27/21 09:40 Cholecalciferol (Vit D3) 1000 Unit (25 Mcg) Tab PO 1,000 unit QDAY SANTOS Administration Darunavir 800 mg 05/10/21 14:45 05/27/21 09:39 Darunavir 800 Mg Tab PO 800 mg QDAY SANTOS Administration Dolutegravir Sodium 50 mg 05/10/21 15:00 05/27/21 09:39 Dolutegravir 50 Mg Tab PO 50 mg QDAY SANTOS Administration Fluconazole 200 mg 05/19/21 19:00 05/27/21 09:41 Fluconazole 200 Mg Tab PO 06/08/21 10:01 200 mg QDAY SANTOS Administration Protocol Guaifenesin 200 mg 05/25/21 08:25 05/27/21 04:23 Guaifenesin 100 Mg/5 Ml Oral Liqd PO 200 mg Q4H PRN Administration Cough Heparin Sodium (Porcine) 5,000 unit 05/10/21 22:00 05/27/21 22:00 Heparin 5,000 Unit/1 Ml Vial SUB-Q 5,000 unit Q12HR SANTOS Administration Hydralazine HCl 10 mg 05/23/21 21:30 05/26/21 17:37 Hydralazine 20 Mg/1 Ml Inj IV 10 mg Q4HR PRN Administration Blood Pressure Sodium Chloride 100 mls @ 999 mls/hr 05/13/21 13:10 Nacl 0.9% IV TRENT PRN Hypotension Lamivudine 100 mg 05/10/21 15:00 05/27/21 09:39 Lamivudine 50 Mg/5 Ml Oral Liqd PO 100 mg DAILY SANTOS Administration Metoprolol Succinate 25 mg 05/22/21 11:00 05/27/21 15:01 Metoprolol Succinate Xl 25 Mg Tab PO 25 mg QDAY SANTOS Administration Multivitamins/Minerals 1 each 05/11/21 10:00 05/27/21 09:40 Multivitamins,Ther W-Minerals Tab PO 1 each QDAY SANTOS Administration Ondansetron HCl 4 mg 05/10/21 11:26 05/20/21 12:16 Ondansetron 4 Mg/2 Ml Inj IV 4 mg Q8H PRN Administration Nausea And Vomiting Prednisone 30 mg 05/15/21 10:00 05/27/21 09:37 Prednisone 10 Mg Tab PO 30 mg QDAY SANTOS Administration Ritonavir 100 mg 05/10/21 15:00 05/27/21 09:42 Ritonavir 100 Mg Tab PO 100 mg QDAY SANTOS Administration Sodium Bicarbonate 1,300 mg 05/10/21 14:00 05/27/21 20:59 Sodium Bicarbonate 650 Mg Tab PO 1,300 mg TID SANTOS Administration Sodium Chloride 10 ml 05/10/21 22:00 05/27/21 22:01 Sodium Chloride 0.9% 10 Ml Flush Syringe IV 10 ml BID SANTOS Administration Sodium Chloride 10 ml 05/10/21 11:26 Sodium Chloride 0.9% 10 Ml Flush Syringe IV PRN PRN LINE FLUSH Trimethoprim/Sulfamethoxazole 1 each 05/26/21 10:00 05/27/21 22:03 Sulfamethoxazole/Trimethoprim 800/160mg Ds Tab PO 06/03/21 23:59 1 each Q12HR SANTOS Administration Protocol Trimethoprim/Sulfamethoxazole 0.5 each 06/04/21 22:00 Sulfamethoxazole/Trimethoprim 800/160mg Ds Tab PO MoWeFr SANTOS Zinc Sulfate 220 mg 05/10/21 22:00 05/27/21 22:02 Zinc Sulfate 220 Mg Cap PO 220 mg BID SANTOS Administration Zolpidem Tartrate 5 mg 05/22/21 22:00 05/27/21 00:09 Zolpidem 5 Mg Tab PO 5 mg QHS PRN Administration Sleep Nutrition/Malnutrition Assess - Dietary Evaluation Nutrition/Malnutrition Findings: Nutrition Notes Start: 05/11/21 12:4 4 Freq: Status: Active Protocol: Document 05/21/21 17:00 DALY (Rec: 05/21/21 17:33 DALY [id number]) Nutrition Notes Initial or Follow up Reassessment Current Diagnosis Acute Kidney Injury,CKD (stage V CKD),Sepsis,Respiratory Failure,Malnutrition Other Pertinent Diagnosis COVID-19/Pneumonia, BILLIE/CKD/ ESRD+HD, HIV/Nephropathy/AIDS, Esophagitis ... Current Diet Renal Diet (since D 05/14), D Suppl (since D 05/14). Labs/Tests 05/21: Na 130, Cl 88.4, BUN 69 , Crea 6.6, Glu 137. Pertinent Medications 05/21: nutritionally unremarkable. Height 6 ft 2 in Weight 55.3 kg [place] Body Weight (kg) 86.36 BMI 15.6 Weight change and time frame 0.5 Kg body weight loss in 1 week reported. Weight Status Underweight Subjective/Other Information RD consult for Dietary advancement, % intake of meals , and body weight change. Pt continues on Renal Diet and Nepro ONS TID, and receiving PBJ sandwichwes on each meal. Pt's PO intake of meals has been Poor (25%), according to ADL notes. 0.5 Kg body weight loss in 1 week reported. Percent of energy/protein needs met: Prescribed Renal Diet provides for energy/protein needs (2, 072 Kcal/77 g) during LOS; additionally, Dietary Supplements will compensate for possible poor or insufficient PO intake of meals with 1,275 Kcal and 57 g of protein. Burn Absent Trauma Absent GI Symptoms None Food Allergy No Skin Integrity/Comment Redness, Dryness. Current % PO Poor (25-49%) Minimum of two criteria Yes #1 Nutrition Diagnosis Underweight Diagnosis Progress(for reassessment Continues documentation) Is patient on ventilator? No Is Patient Ambulatory and/or Out of Bed Yes REE-([facility]-ambulatory/OOB) [ 1992.575 [id number]] Calculation Used for Recommendations [facility] Additional Notes Protein: >1.2 g/Kg; >67 g/day. Fluids: 1 ml/Kcal, or as per MD. Nutrition Intervention Change Diet Order: Continue Renal Diet and Pt's Preferred food items. Add Supplement/Snack (indicate name/kcal Continue 8 fl oz Nepro w/ /protein ) CARBSTEADY; TID. Provides kCal: 1,275 Provides Protein (gm) 57 Goal #1 Compensate, through dietary supplementation, for possible poor or insufficient PO intake of meals during LOS. Goal #2 Maintain body weight within +/ -3% of admission body weight during LOS. Follow-Up By: 05/28/21 Additional Comments Continue monitoring food tolerance, %PO intake of meals , and BM.
--- NOTE | 2021-05-28 11:04 | Progress Note ---
Assessment and Plan Assessment Sepsis Pneumonia Malnutrition Acute respiratory failure with hypoxia COVID-19 positive HIV (human immunodeficiency virus infection) Progressive CKD likely ESRD Hypokalemia Plan: Hemodialysis today for UF and clearance as scheduled, currently on ,, schedule No new labs noted for today Has right perm-catheter Kidney disease could be related to HIVAN Renal US showed CKD signs Renally dose medications Strict I&O's daily Obtain daily weights CM onboard for outpatient HD placement Plan of care reviewed by Dr. Corral Subjective Date of service: 05/28/21 Principal diagnosis: ESRD Interval history: Patient is with active COVID positive infection, chart reviewed. Objective - Vital Signs Vital signs: Vital Signs - 12hr 05/28/21 05/28/21 04:43 09:00 Temperature 98.5 F Pulse Rate 107 H Pulse Rate [ 119 H Radial] Respiratory 20 20 Rate Blood Pressure 141/101 O2 Sat by Pulse 98 100 Oximetry - Lab 05/25/21 05:36 05/25/21 05:36 Most recent lab results Calcium 8.6 mg/dL (8.4-10.2) 05/25/21 05:36 Magnesium 1.60 mg/dL (1.7-2.3) L 05/25/21 05:36 Medications & Allergies - Medications Allergies/Adverse Reactions: Allergies No Known Allergies Allergy (Verified 04/20/21 08:43) Home Medications: Home Medications Medication Instructions Recorded Confirmed Last Taken Type Multivit-Min/Folic/Vit K/Lycop 1 tab PO QDAY 04/21/21 05/13/21 3 Days Ago History [Men's Multivitamin Tablet] ~04/18/21 ALPRAZolam [Xanax TAB] 0.25 mg PO DAILY PRN #10 tablet 05/26/21 Unknown Rx Cholecalciferol Vit D3 [Vitamin D3 1,000 unit PO QDAY #30 tablet 05/26/21 Unknown Rx 1,000 UNIT TAB] Darunavir [Prezista] 800 mg PO QDAY #14 tablet 05/26/21 Unknown Rx Dolutegravir [Tivicay] 50 mg PO QDAY #14 tablet 05/26/21 Unknown Rx Fluconazole [Diflucan TAB] 200 mg PO QDAY #14 tablet 05/26/21 Unknown Rx Metoprolol Xl [Metoprolol 25 mg PO QDAY #30 tablet 05/26/21 Unknown Rx SUCCINATE ER TAB] Ritonavir 100 mg PO QDAY #14 tab 05/26/21 Unknown Rx Sodium Bicarbonate 1,300 mg PO TID #90 tablet 05/26/21 Unknown Rx Sulfamethoxazole/Trimethoprim 0.5 each PO MoWeFr #30 tablet 05/26/21 Unknown Rx [Bactrim DS TAB] lamiVUDine [Epivir Hbv] 100 mg PO QDAY #14 tab 05/26/21 Unknown Rx predniSONE 10 mg PO QDAY 21 Days #42 tab 05/26/21 Unknown Rx Active Medications: Generic Name Dose Route Start Last Admin Trade Name Freq PRN Reason Stop Dose Admin Acetaminophen 650 mg 05/10/21 11:26 05/20/21 09:00 Acetaminophen 325 Mg Tab PO 650 mg Q4H PRN Administration Pain MILD(1-3)/Fever >100.5/LANG[place] Albuterol 2.5 mg 05/10/21 11:26 05/21/21 20:05 Albuterol 2.5 Mg/3 Ml Nebu IH 2.5 mg Q4HRT PRN Administration Shortness Of Breath Alprazolam 0.25 mg 05/15/21 09:38 05/28/21 08:58 Alprazolam 0.25 Mg Tab PO 0.25 mg DAILY PRN Administration Anxiety Ascorbic Acid 500 mg 05/10/21 22:00 05/27/21 22:01 Ascorbic Acid 500 Mg Tab PO 500 mg BID SANTOS Administration Bumetanide 1 mg 05/20/21 22:00 05/27/21 22:00 Bumetanide 1 Mg/4 Ml Inj IV 1 mg BID SANTOS Administration Cholecalciferol 1,000 unit 05/21/21 12:00 05/27/21 09:40 Cholecalciferol (Vit D3) 1000 Unit (25 Mcg) Tab PO 1,000 unit QDAY SANTOS Administration Darunavir 800 mg 05/10/21 14:45 05/27/21 09:39 Darunavir 800 Mg Tab PO 800 mg QDAY SANTOS Administration Dolutegravir Sodium 50 mg 05/10/21 15:00 05/27/21 09:39 Dolutegravir 50 Mg Tab PO 50 mg QDAY SANTOS Administration Fluconazole 200 mg 05/19/21 19:00 05/27/21 09:41 Fluconazole 200 Mg Tab PO 06/08/21 10:01 200 mg QDAY SANTOS Administration Protocol Guaifenesin 200 mg 05/25/21 08:25 05/27/21 04:23 Guaifenesin 100 Mg/5 Ml Oral Liqd PO 200 mg Q4H PRN Administration Cough Heparin Sodium (Porcine) 5,000 unit 05/10/21 22:00 05/27/21 22:00 Heparin 5,000 Unit/1 Ml Vial SUB-Q 5,000 unit Q12HR SANTOS Administration Hydralazine HCl 10 mg 05/23/21 21:30 05/26/21 17:37 Hydralazine 20 Mg/1 Ml Inj IV 10 mg Q4HR PRN Administration Blood Pressure Sodium Chloride 100 mls @ 999 mls/hr 05/13/21 13:10 Nacl 0.9% IV TRENT PRN Hypotension Lamivudine 100 mg 05/10/21 15:00 05/27/21 09:39 Lamivudine 50 Mg/5 Ml Oral Liqd PO 100 mg DAILY SANTOS Administration Metoprolol Succinate 25 mg 05/22/21 11:00 05/27/21 15:01 Metoprolol Succinate Xl 25 Mg Tab PO 25 mg QDAY SANTOS Administration Multivitamins/Minerals 1 each 05/11/21 10:00 05/27/21 09:40 Multivitamins,Ther W-Minerals Tab PO 1 each QDAY SANTOS Administration Ondansetron HCl 4 mg 05/10/21 11:26 05/20/21 12:16 Ondansetron 4 Mg/2 Ml Inj IV 4 mg Q8H PRN Administration Nausea And Vomiting Prednisone 30 mg 05/15/21 10:00 05/27/21 09:37 Prednisone 10 Mg Tab PO 30 mg QDAY SANTOS Administration Ritonavir 100 mg 05/10/21 15:00 05/27/21 09:42 Ritonavir 100 Mg Tab PO 100 mg QDAY SANTOS Administration Sodium Bicarbonate 1,300 mg 05/10/21 14:00 05/27/21 20:59 Sodium Bicarbonate 650 Mg Tab PO 1,300 mg TID SANTOS Administration Sodium Chloride 10 ml 05/10/21 22:00 05/27/21 22:01 Sodium Chloride 0.9% 10 Ml Flush Syringe IV 10 ml BID SANTOS Administration Sodium Chloride 10 ml 05/10/21 11:26 Sodium Chloride 0.9% 10 Ml Flush Syringe IV PRN PRN LINE FLUSH Trimethoprim/Sulfamethoxazole 1 each 05/26/21 10:00 05/27/21 22:03 Sulfamethoxazole/Trimethoprim 800/160mg Ds Tab PO 06/03/21 23:59 1 each Q12HR SANTOS Administration Protocol Trimethoprim/Sulfamethoxazole 0.5 each 06/04/21 22:00 Sulfamethoxazole/Trimethoprim 800/160mg Ds Tab PO MoWeFr SANTOS Zinc Sulfate 220 mg 05/10/21 22:00 05/27/21 22:02 Zinc Sulfate 220 Mg Cap PO 220 mg BID SANTOS Administration Zolpidem Tartrate 5 mg 05/22/21 22:00 05/27/21 00:09 Zolpidem 5 Mg Tab PO 5 mg QHS PRN Administration Sleep
[2021-05-28] MEDS: ASCORBIC ACID 500 MG TAB PO SCH ×2 (13:47→21:39)
[2021-05-28] MEDS: BUMETANIDE 1 MG/4 ML INJ IV SCH ×2 (13:47→21:39)
[2021-05-28] MEDS: METOPROLOL SUCCINATE XL 25 MG TAB PO SCH (13:47)
[2021-05-28] MEDS: HEPARIN 5,000 UNIT/1 ML VIAL SUB-Q SCH ×2 (13:47→21:39)
[2021-05-28] MEDS: ZINC SULFATE 220 MG CAP PO SCH ×2 (13:48→21:39)
[2021-05-28] MEDS: SODIUM BICARBONATE 650 MG TAB PO SCH ×3 (13:48→21:38)
[2021-05-28] MEDS: DARUNAVIR 800 MG TAB PO SCH (13:48)
[2021-05-28] MEDS: predniSONE 10 MG TAB PO SCH (13:48)
[2021-05-28] MEDS: MULTIVITAMINS,THER W-MINERALS TAB PO SCH (13:48)
[2021-05-28] MEDS: DOLUTEGRAVIR 50 MG TAB PO SCH (13:49)
[2021-05-28] MEDS: FLUCONAZOLE 200 MG TAB PO SCH (13:49)
[2021-05-28] MEDS: lamiVUDine 50 MG/5 ML ORAL LIQD PO SCH (13:49)
[2021-05-28] MEDS: RITONAVIR 100 MG TAB PO SCH (13:49)
[2021-05-28] MEDS: SULFAMETHOXAZOLE/TRIMETHOPRIM 800/160MG DS TAB PO SCH ×2 (13:50→21:39)
[2021-05-28] MEDS: CHOLECALCIFEROL (VIT D3) 1000 UNIT (25 mcg) TAB PO SCH (13:51)
[2021-05-28] MEDS: guaiFENesin 100 MG/5 ML ORAL LIQD PO PRN (18:20)
[2021-05-28] MEDS ORDERED: LOPERAMIDE 2 MG CAP PO ONE (22:22)
[2021-05-29 07:12] LABS: Calcium 7.6 mg/dL (8.4-10.2)
[2021-05-29] MEDS: SULFAMETHOXAZOLE/TRIMETHOPRIM 800/160MG DS TAB PO SCH ×2 (09:30→21:00)
[2021-05-29] MEDS: MULTIVITAMINS,THER W-MINERALS TAB PO SCH (09:30)
[2021-05-29] MEDS: ZINC SULFATE 220 MG CAP PO SCH ×2 (09:30→21:00)
[2021-05-29] MEDS: DARUNAVIR 800 MG TAB PO SCH (09:31)
[2021-05-29] MEDS: DOLUTEGRAVIR 50 MG TAB PO SCH (09:31)
[2021-05-29] MEDS: CHOLECALCIFEROL (VIT D3) 1000 UNIT (25 mcg) TAB PO SCH (09:31)
[2021-05-29] MEDS: ASCORBIC ACID 500 MG TAB PO SCH ×2 (09:31→21:00)
[2021-05-29] MEDS: BUMETANIDE 1 MG/4 ML INJ IV SCH ×2 (09:31→21:00)
[2021-05-29] MEDS: SODIUM BICARBONATE 650 MG TAB PO SCH ×2 (09:31→14:09)
[2021-05-29] MEDS: METOPROLOL SUCCINATE XL 25 MG TAB PO SCH ×2 (09:31→10:50)
[2021-05-29] MEDS: RITONAVIR 100 MG TAB PO SCH (09:31)
[2021-05-29] MEDS: HEPARIN 5,000 UNIT/1 ML VIAL SUB-Q SCH ×2 (09:32→21:00)
[2021-05-29] MEDS: lamiVUDine 50 MG/5 ML ORAL LIQD PO SCH (09:32)
[2021-05-29] MEDS: FLUCONAZOLE 200 MG TAB PO SCH (09:32)
[2021-05-29] MEDS: predniSONE 10 MG TAB PO SCH (09:34)
--- NOTE | 2021-05-29 09:43 | Progress Note ---
Assessment and Plan Assessment and plan: 40-year-old male who was recently hospitalized and discharged earlier this month with a new diagnosis of HIV and suspected AIDS with associated renal dysfunction. Patient was also noted to have a diagnosis of COVID-19 pneumonia during that admission but not hypoxic at that time. Patient was recommended for outpatient follow-up with [facility]. 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 HIV associated nephropathy Accelerated hypertension Acute renal failure. COVID-19. Patient initially tested + 04/24/2021 but not a candidate for remdesivir. Acute hypoxic respiratory failure. Etiology secondary to Covid versus renal failure versus PCP pneumonia. Persistent sinus tachycardia 05/11/2021. ID has been consulted and we will follow up HIV viral load, CD4 count and genotype. Follow-up LDH 1 3 beta D glucan. ID started Mepron to cover P MARTINEZ and avoiding Bactrim due to renal failure. We started steroids given the new hypoxia. ID also initiated ART with lamivudine, darunavir plus ritonav ir and dolutegravir given the possibility of HIVAN. Consider pulmonary consultation. Nephrology following. Renal ultrasound shows signs of CKD. Nephrology to discuss hemodialysis initiation. Continue strict I's and O's daily and monitor renal function closely 05/12/2021. Patient is s/p placement of a right internal jugular tunneled cuffed hemodialysis catheter and initiation of hemodialysis on 05/11/2021. Patient is also undergo further hemodialysis today. CM consult to place patient at [facility] dialysis unit. We will follow up HIV viral load, CD4 count and genotype. Follow-up LDH 1 3 beta D glucan. ID started Mepron to cover P MARTINEZ and avoiding Bactrim due to renal failure. ID also initiated ART with lamivudine, darunavir plus ritonavir and dolutegravir given the possibility of HIVAN. Continue steroids given the hypoxia. Respiratory status has significantly improved after hemodialysis. I believe volume overload was the most significantly contributing factor/etiology. Follow-up serial chest x-ray. Patient currently with 2 L nasal cannula satting at 99% 05/13/2021. Continue hemodialysis per nephrology recommendations. Await outpatient arrangements for hemodialysis unit. We will follow up HIV viral load, CD4 count and genotype. Follow-up LDH 1 3 beta D glucan. ID started Mepron to cover P MARTINEZ and avoiding Bactrim due to renal failure. ID also initiated ART with lamivudine, darunavir plus ritonavir and dolutegravir given the possibility of HIVAN. Continue steroids given the hypoxia and change from Solu-Medrol IV to dexamethasone. Procalcitonin level was elevated at 6. We will continue IV antibiotics per ID recommendations 05/14/2021. Continue hemodialysis per nephrology recommendations. Await outpatient arrangements for hemodialysis unit. We will follow up HIV viral load, CD4 count and genotype. Follow-up LDH 1 3 beta D glucan. ID started Me pron to cover P MARTINEZ and avoiding Bactrim due to renal failure. ID also initiated ART with lamivudine, darunavir plus ritonavir and dolutegravir given the possibility of HIVAN. Continue dexamethasone. Patient to follow-up with health department in early May. Case management follow-up with regards to home ART before follow-up with the health department 05/15/2021. Continue hemodialysis per nephrology recommendations. Await outpatient arrangements for hemodialysis unit. Patient wants anxiety medication prior to dialysis. We will start Xanax 0.25 mg as needed. Continue lamivudine, darunavir plus ritonavir and dolutegravir given the possibility of HIVAN. Continue dexamethasone. Patient to follow-up with health department in early May. Case management follow-up with regards to home ART before follow-up with the health department 05/16/2021. Continue hemodialysis per nephrology recommendations. Await outpatient arrangements for hemodialysis unit. Renal US showed CKD signs. Strict I&O's daily. Obtain daily weights. Continue Xanax prior to hemodialysis for anxiety. Continue lamivudine, darunavir plus ritonavir and dolutegravir given the possibility of HIVAN. Continue dexamethasone. Patient to follow-up with health department in early May. Patient with elevated diastolic BP greater than 100. We will start Procardia 30 mg twice daily. 05/17/2021. Patient to be initiated on F hemodialysis schedule. Patient requesting Xanax for anxiety prior to hemodialysis session. Await outpatient arrangements for hemodialysis unit per case management. Renal ultrasound revealed signs of chronic kidney disease. Continue strict I&O's daily. Obtain daily weights. Continue lamivudine, darunavir plus ritonavir and dolutegravir given the possibility of HIVAN. Continue dexamethasone. Patient to follow-up with health department in early May. Patient's BP much better controlled with the addition of Procardia. 05/18: Hemodialysis was discontinued yesterday after 1 hour if patient request as he was feeling weak with hypotension. BP remains low to 80s. Given NS bolus management this morning. Procardia discontinued. Bumex is on hold. Excellent urine. Still feeling weak. Remains anxious. Asking to be sedated during dialysis. CXR ordered daily Dr. Graves shows mild localized subcutaneous emphysema and right-sided neck pain currently dialysis catheter is placed. A CT chest showed diabetes mellitus with emphysema-like cough. Vascular surgery is addressing this. Sinus tachycardia stable. On room air without acute respite distress at rest. Discussed with the patient, nursing staff and vascular surgery. 05/19:Patient is feeling much better after undergoing hemodialysis for 3 hours today.Breathing much better. Mild subcutis emphysema in the right supraclavicular fossa seems stable. This is assisted by pulmonary in consultation and reevaluation by today. No acute intervention required, expected to resolve by itself. Looks more comfortable and less anxious. Remains on 3 L of O2. 05/20: No acute events. Remains on 3 L O2. Pneumomediastinum and subcutaneous emphysema stable. Bactrim changed from p.o. to IV. Sinus tach worse today and received Lopressor IV x1 dose. Discussed with ID. 05/21: No acute events, stable, awaiting outpatient dialysis arrangements for discharge. 05/22: Chronic anxiety, better. Since tachycardia stable. Remains on 2 to 3 days of O2. Stable for discharge pending outpatient dialysis arrangements. Discussed with CM. 05/23: Remains stable for discharge pending outpatient dialysis arrangements by CM. 05/24: Remains stable for discharge pending outpatient dialysis treatments with CM. 05/25: Remains stable for discharge pending outpatient dialysis treatments with CM. Continue IV Bactrim per ID recommendations to complete a total of 21 days. Patient should also have tapering steroids over the next 21 days. ART was started on 05/10/2021. Continue fluconazole 200 mg every 24 hours x3 weeks 05/26: Continue Bactrim, steroids, ART and fluconazole. Patient with plans to discharge when outpatient hemodialysis chair available. 05/27: Patient with persistent sinus tachycardia. Consider cardiology consultation. Check echocardiogram. Continue metoprolol 25 mg p.o. daily for now. Continue Bactrim, steroids, ART and fluconazole. Patient with plans to discharge when outpatient hemodialysis chair available. 05/28: Follow-up echocardiogram results. Increase metoprolol to 50 mg p.o. daily. Continue Bactrim, steroids, ART and fluconazole. Patient with plans to discharge when outpatient hemodialysis chair available. 05/29: Left ventricle size and systolic function is normal. Mild diastolic dysfunction. LVEF 50-55%. Increase metoprolol to 50 mg p.o. daily. Continue Bactrim, steroids, ART and fluconazole. Patient with plans to discharge when outpatient hemodialysis chair available. History Interval history: No new issues overnight Hospitalist Physical - Constitutional Vitals: Temp Pulse Resp BP Pulse Ox 99.0 F 102 H 18 143/104 96 05/29/21 04:29 05/29/21 04:29 05/29/21 04:29 05/29/21 04:29 05/29/21 07:19 General appearance: Present: no acute distress, well-nourished - EENT Eyes: Present: PERRL, EOM intact ENT: hearing intact, clear oral mucosa, dentition normal - Neck Neck: Present: supple, normal ROM - Respiratory Respiratory effort: normal Respiratory: bilateral: CTA - Cardiovascular Rhythm: regular Heart Sounds: Present: S1 & S2. Absent: gallop, rub - Extremities Extremities: no ischemia, No edema, Full ROM - Abdominal General gastrointestinal: soft, non-tender, non-distended, normal bowel sounds - Integumentary Integumentary: Present: clear, warm, dry - Neurologic Neurologic: CNII-XII intact, moves all extremities HEART Score - HEART Score Troponin: Troponin T 0.011 ng/mL (0.00-0.029) 05/19/21 06:50 Results - Labs CBC & Chem 7: 05/25/21 05:36 05/29/21 05:44 Labs: Laboratory Last Values WBC 4.5 K/mm3 (4.5-11.0) 05/25/21 05:36 RBC 2.45 M/mm3 (3.65-5.03) L 05/25/21 05:36 Hgb 7.5 gm/dl (11.8-15.2) L 05/25/21 05:36 Hct 23.5 % (35.5-45.6) L 05/25/21 05:36 MCV 96 fl (84-94) H 05/25/21 05:36 MCH 31 pg (28-32) 05/25/21 05:36 MCHC 32 % (32-34) 05/25/21 05:36 RDW 17.5 % (13.2-15.2) H 05/25/21 05:36 Plt Count 278 K/mm3 (140-440) 05/25/21 05:36 Lymph % (Auto) Not Reportable 05/20/21 09:45 [place] % (Auto) Not Reportable 05/20/21 09:45 Eos % (Auto) Not Reportable 05/20/21 09:45 Baso % (Auto) Not Reportable 05/20/21 09:45 Lymph # (Auto) Not Reportable 05/20/21 09:45 [place] # (Auto) Not Reportable 05/20/21 09:45 Eos # (Auto) Not Reportable 05/20/21 09:45 Baso # (Auto) Not Reportable 05/20/21 09:45 Add Manual Diff Complete 05/25/21 05:36 Total Counted 100 05/25/21 05:36 Seg Neutrophils % Calcine [place] Loader 05/20/21 09:45 Seg Neuts % (Manual) 91.0 % (40.0-70.0) H 05/25/21 05:36 Band Neutrophils % 0 % 05/25/21 05:36 Lymphocytes % (Manual) 5.0 % (13.4-35.0) L 05/25/21 05:36 Reactive Lymphs % (Man) 0 % 05/25/21 05:36 Monocytes % (Manual) 4.0 % (0.0-7.3) 05/25/21 05:36 Eosinophils % (Manual) 0 % (0.0-4.3) 05/25/21 05:36 Basophils % (Manual) 0 % (0.0-1.8) 05/25/21 05:36 Metamyelocytes % 0 % 05/25/21 05:36 Myelocytes % 0 % 05/25/21 05:36 Promyelocytes % 0 % 05/25/21 05:36 Blast Cells % 0 % 05/25/21 05:36 Nucleated RBC % Not Reportable 05/25/21 05:36 Seg Neutrophils # Not Reportable 05/20/21 09:45 Seg Neutrophils # Man 4.1 K/mm3 (1.8-7.7) 05/25/21 05:36 Band Neutrophils # 0.0 K/mm3 05/25/21 05:36 Abs Lymphs (Manual) 291 cells/uL (850-3900) L 05/10/21 17:09 Lymphocytes # (Manual) 0.2 K/mm3 (1.2-5.4) L 05/25/21 05:36 Abs React Lymphs (Man) 0.0 K/mm3 05/25/21 05:36 Monocytes # (Manual) 0.2 K/mm3 (0.0-0.8) 05/25/21 05:36 Eosinophils # (Manual) 0.0 K/mm3 (0.0-0.4) 05/25/21 05:36 Basophils # (Manual) 0.0 K/mm3 (0.0-0.1) 05/25/21 05:36 Metamyelocytes # 0.0 K/mm3 05/25/21 05:36 Myelocytes # 0.0 K/mm3 05/25/21 05:36 Promyelocytes # 0.0 K/mm3 05/25/21 05:36 Blast Cells # 0.0 K/mm3 05/25/21 05:36 WBC Morphology Not Reportable 05/25/21 05:36 Hypersegmented Neuts Not Reportable 05/25/21 05:36 Hyposegmented Neuts Not Reportable 05/25/21 05:36 Hypogranular Neuts Not Reportable 05/25/21 05:36 Smudge Cells Not Reportable 05/25/21 05:36 Toxic Granulation Not Reportable 05/25/21 05:36 Toxic Vacuolation Not Reportable 05/25/21 05:36 Dohle Bodies Rare 05/25/21 05:36 Pelger-Huet Anomaly Not Reportable 05/25/21 05:36 Karishma Rods Not Reportable 05/25/21 05:36 Platelet Estimate Consistent w auto 05/25/21 05:36 Clumped Platelets Not Reportable 05/25/21 05:36 Plt Clumps, EDTA Not Reportable 05/25/21 05:36 Large Platelets Not Reportable 05/25/21 05:36 Giant Platelets Not Reportable 05/25/21 05:36 Platelet Satelliting Not Reportable 05/25/21 05:36 Plt Morphology Comment Not Reportable 05/25/21 05:36 RBC Morphology Not Reportable 05/25/21 05:36 Dimorphic RBCs Not Reportable 05/25/21 05:36 Polychromasia Not Reportable 05/25/21 05:36 Hypochromasia Not Reportable 05/25/21 05:36 Poikilocytosis Not Reportable 05/25/21 05:36 Anisocytosis 1+ 05/25/21 05:36 Microcytosis Not Reportable 05/25/21 05:36 Macrocytosis Not Reportable 05/25/21 05:36 Spherocytes Not Reportable 05/25/21 05:36 Pappenheimer Bodies Not Reportable 05/25/21 05:36 Sickle Cells Not Reportable 05/25/21 05:36 Target Cells Not Reportable 05/25/21 05:36 Tear Drop Cells Not Reportable 05/25/21 05:36 Ovalocytes Not Reportable 05/25/21 05:36 Helmet Cells Not Reportable 05/25/21 05:36 [place] Bodies Not Reportable 05/25/21 05:36 Bruno Rings Not Reportable 05/25/21 05:36 [place] Cells Not Reportable 05/25/21 05:36 Bite Cells Not Reportable 05/25/21 05:36 Crenated Cell Not Reportable 05/25/21 05:36 Elliptocytes Not Reportable 05/25/21 05:36 Acanthocytes (Spur) Not Reportable 05/25/21 05:36 Rouleaux Not Reportable 05/25/21 05:36 Hemoglobin C Crystals Not Reportable 05/25/21 05:36 Schistocytes Not Reportable 05/25/21 05:36 Malaria parasites Not Reportable 05/25/21 05:36 Angus Bodies Not Reportable 05/25/21 05:36 Hem Pathologist Commnt No 05/25/21 05:36 D-Dimer 730.16 ng/mlDDU (0-234) H 05/10/21 09:45 Sodium 136 mmol/L (137-145) L 05/29/21 05:44 Potassium 3.4 mmol/L (3.6-5.0) L 05/29/21 05:44 Chloride 99.4 mmol/L (98-107) 05/29/21 05:44 Carbon Dioxide 23 mmol/L (22-30) 05/29/21 05:44 Anion Gap 17 mmol/L 05/29/21 05:44 BUN 27 mg/dL (9-20) H 05/29/21 05:44 Creatinine 2.7 mg/dL (0.8-1.3) H 05/29/21 05:44 Estimated GFR 32 ml/min 05/29/21 05:44 BUN/Creatinine Ratio 10 % 05/29/21 05:44 Glucose 98 mg/dL (75-100) 05/29/21 05:44 Lactic Acid 2.10 mmol/L (0.7-2.0) H* 05/11/21 09:53 Calcium 7.6 mg/dL (8.4-10.2) L 05/29/21 05:44 Magnesium 1.60 mg/dL (1.7-2.3) L 05/25/21 05:36 Ferritin 1426.0 ng/mL (30.0-300.0) H 05/10/21 09:45 Total Bilirubin < 0.20 mg/dL (0.1-1.2) 05/25/21 05:36 AST 33 units/L (5-40) 05/25/21 05:36 ALT 31 units/L (7-56) 05/25/21 05:36 Alkaline Phosphatase 85 units/L (35-129) 05/25/21 05:36 Lactate Dehydrogenase 600 units/L (91-180) H 05/10/21 09:45 Lactate Dehydrogenase 623 units/L (91-180) H 05/10/21 09:45 Total Creatine Kinase 31 units/L (55-170) L 05/10/21 09:45 CK-MB (CK-2) < 1.0 ng/mL (0.0-4.0) 05/10/21 09:45 CK-MB (CK-2) Rel Index 3.2 (0-4) 05/10/21 09:45 Troponin T 0.011 ng/mL (0.00-0.029) 05/19/21 06:50 C-Reactive Protein 8.90 mg/dL (0.00-1.30) H 05/10/21 09:45 C-Reactive Protein 9.00 mg/dL (0.00-1.30) H 05/10/21 09:45 NT-Pro-B Natriuret Pep 4065 pg/mL (0-450) H 05/10/21 09:45 Total Protein 6.6 g/dL (6.3-8.2) 05/25/21 05:36 Albumin 2.6 g/dL (3.9-5) L 05/25/21 05:36 Albumin/Globulin Ratio 0.7 % 05/25/21 05:36 Procalcitonin 6.81 ng/mL (<0.15) 05/10/21 09:45 TSH 2.390 mlU/mL (0.270-4.200) 05/10/21 09:45 Free T4 0.94 ng/dL (0.76-1.46) 05/10/21 09:45 Urine Color Yellow (Yellow) 05/10/21 13:49 Urine Turbidity Clear (Clear) 05/10/21 13:49 Urine pH 8.0 (5.0-7.0) H 05/10/21 13:49 Ur Specific [place] 1.025 (1.003-1.030) 05/10/21 13:49 Urine Protein 100 mg/dl mg/dL (Negative) 05/10/21 13:49 Urine Glucose (UA) Negative mg/dL (Negative) 05/10/21 13:49 Urine Ketones Negative mg/dL (Negative) 05/10/21 13:49 Urine Blood Negative (Negative) 05/10/21 13:49 Urine Nitrite Negative (Negative) 05/10/21 13:49 Ur Reducing Substances Not Reportable 05/10/21 13:49 Urine Bilirubin Negative (Negative) 05/10/21 13:49 Urine Ictotest Not Reportable 05/10/21 13:49 Urine Urobilinogen 0.0 mg/dL (<2.0) 05/10/21 13:49 Ur Leukocyte Esterase Negative (Negative) 05/10/21 13:49 Urine WBC (Auto) 2.0 /HPF (0.0-6.0) 05/10/21 13:49 Urine RBC (Auto) < 1.0 /HPF (0.0-6.0) 05/10/21 13:49 U Epithel Cells (Auto) 1.0 /HPF (0-13.0) 05/10/21 13:49 Lymph Enumerat CD4/CD8 0.00 (0.86-5.00) L 05/10/21 17:09 % CD3 Cells 78 % (57-85) 05/10/21 17:09 Absolute CD3 Count 228 cells/uL (840-3060) L 05/10/21 17:09 % CD4 Cells 0 % (30-61) L 05/10/21 17:09 Absolute CD4 Count 0 cells/uL (490-1740) L 05/10/21 17:09 % CD8 Cells 78 % (12-42) H 05/10/21 17:09 Absolute CD8 Count 239 cells/uL (180-1170) 05/10/21 17:09 % CD19 Cells 1 % (6-29) L 05/10/21 17:09 Absolute CD19 Count 2 cells/uL (110-660) L 05/10/21 17:09 Coronavirus (PCR) Positive (Negative) A 05/24/21 10:50 Hepatitis A IgM Ab Non-reactive (NonReactive) 05/11/21 09:53 Hep Bs Antigen Non-reactive (Negative) 05/11/21 09:53 Hep B Core IgM Ab Non-reactive (NonReactive) 05/11/21 09:53 Hepatitis C Antibody Non-reactive (NonReactive) 05/11/21 09:53 HIV-1 RNA PCR copies/ml 29371 Copies/mL H 05/10/21 17:09 HIV-1 RNA (PCR) log 4.71 Log cps/mL H 05/10/21 17:09 HIV-1 Genotyping Detected H 05/11/21 09:53 Miscellaneous Test Flexitest 1 H 05/11/21 12:41 Krishnan/IV: Voiding Method Urinal Active Medications - Current Medications Current Medications: Generic Name Dose Route Start Last Admin Trade Name Freq PRN Reason Stop Dose Admin Acetaminophen 650 mg 05/10/21 11:26 05/20/21 09:00 Acetaminophen 325 Mg Tab PO 650 mg Q4H PRN Administration Pain MILD(1-3)/Fever >100.5/LANGLEY Albuterol 2.5 mg 05/10/21 11:26 05/21/21 20:05 Albuterol 2.5 Mg/3 Ml Nebu IH 2.5 mg Q4HRT PRN Administration Shortness Of Breath Alprazolam 0.25 mg 05/15/21 09:38 05/28/21 08:58 Alprazolam 0.25 Mg Tab PO 0.25 mg DAILY PRN Administration Anxiety Ascorbic Acid 500 mg 05/10/21 22:00 05/29/21 09:31 Ascorbic Acid 500 Mg Tab PO 500 mg BID SANTOS Administration Bumetanide 1 mg 05/20/21 22:00 05/29/21 09:31 Bumetanide 1 Mg/4 Ml Inj IV 1 mg BID SANTOS Administration Cholecalciferol 1,000 unit 05/21/21 12:00 05/29/21 09:31 Cholecalciferol (Vit D3) 1000 Unit (25 Mcg) Tab PO 1,000 unit QDAY SANTOS Administration Darunavir 800 mg 05/10/21 14:45 05/29/21 09:31 Darunavir 800 Mg Tab PO 800 mg QDAY SANTOS Administration Dolutegravir Sodium 50 mg 05/10/21 15:00 05/29/21 09:31 Dolutegravir 50 Mg Tab PO 50 mg QDAY SANTOS Administration Fluconazole 200 mg 05/19/21 19:00 05/29/21 09:32 Fluconazole 200 Mg Tab PO 06/08/21 10:01 200 mg QDAY SANTOS Administration Protocol Guaifenesin 200 mg 05/25/21 08:25 05/28/21 18:20 Guaifenesin 100 Mg/5 Ml Oral Liqd PO 200 mg Q4H PRN Administration Cough Heparin Sodium (Porcine) 5,000 unit 05/10/21 22:00 05/29/21 09:32 Heparin 5,000 Unit/1 Ml Vial SUB-Q 5,000 unit Q12HR SANTOS Administration Hydralazine HCl 10 mg 05/23/21 21:30 05/26/21 17:37 Hydralazine 20 Mg/1 Ml Inj IV 10 mg Q4HR PRN Administration Blood Pressure Sodium Chloride 100 mls @ 999 mls/hr 05/13/21 13:10 Nacl 0.9% IV TRENT PRN Hypotension Lamivudine 100 mg 05/10/21 15:00 05/29/21 09:32 Lamivudine 50 Mg/5 Ml Oral Liqd PO 100 mg DAILY SANTOS Administration Metoprolol Succinate 25 mg 05/22/21 11:00 05/29/21 09:31 Metoprolol Succinate Xl 25 Mg Tab PO 25 mg QDAY SANTOS Administration Multivitamins/Minerals 1 each 05/11/21 10:00 05/29/21 09:30 Multivitamins,Ther W-Minerals Tab PO 1 each QDAY SANTOS Administration Ondansetron HCl 4 mg 05/10/21 11:26 05/20/21 12:16 Ondansetron 4 Mg/2 Ml Inj IV 4 mg Q8H PRN Administration Nausea And Vomiting Prednisone 30 mg 05/15/21 10:00 05/29/21 09:34 Prednisone 10 Mg Tab PO 30 mg QDAY SANTOS Administration Ritonavir 100 mg 05/10/21 15:00 05/29/21 09:31 Ritonavir 100 Mg Tab PO 100 mg QDAY SANTOS Administration Sodium Bicarbonate 1,300 mg 05/10/21 14:00 05/29/21 09:31 Sodium Bicarbonate 650 Mg Tab PO 1,300 mg TID SANTOS Administration Sodium Chloride 10 ml 05/10/21 22:00 05/29/21 09:33 Sodium Chloride 0.9% 10 Ml Flush Syringe IV 10 ml BID SANTOS Administration Sodium Chloride 10 ml 05/10/21 11:26 Sodium Chloride 0.9% 10 Ml Flush Syringe IV PRN PRN LINE FLUSH Trimethoprim/Sulfamethoxazole 1 each 05/26/21 10:00 05/29/21 09:30 Sulfamethoxazole/Trimethoprim 800/160mg Ds Tab PO 06/03/21 23:59 1 each Q12HR SANTOS Administration Protocol Trimethoprim/Sulfamethoxazole 0.5 each 06/04/21 22:00 Sulfamethoxazole/Trimethoprim 800/160mg Ds Tab PO MoWeFr SANTOS Zinc Sulfate 220 mg 05/10/21 22:00 05/29/21 09:30 Zinc Sulfate 220 Mg Cap PO 220 mg BID SANTOS Administration Zolpidem Tartrate 5 mg 05/22/21 22:00 05/27/21 00:09 Zolpidem 5 Mg Tab PO 5 mg QHS PRN Administration Sleep Nutrition/Malnutrition Assess - Dietary Evaluation Nutrition/Malnutrition Findings: Nutrition Notes Start: 05/11/21 12:44 Freq: Status: Active Protocol: Document 05/28/21 19:41 DALY (Rec: 05/28/21 19:51 DALY [id number]) Nutrition Notes Initial or Follow up Reassessment Current Diagnosis Acute Kidney Injury,CKD (stage V CKD),Sepsis,Respiratory Failure,Malnutrition Other Pertinent Diagnosis COVID-19/Pneumonia, BILLIE/CKD/ ESRD+HD, HIV/Nephropathy/AIDS, Esophagitis ... Current Diet Renal Diet (since D 05/14), D Suppl (since D 05/14). Labs/Tests 05/25: Na 135, K 3.4, Cl 97.7, BUN 38, Crea 4.6, Glu 113, Mg 1.6. Pertinent Medications 05/28: Vit C, Vit D3, ZnSO4, others nutritionally unremarkable. Height 6 ft 2 in Weight 60.6 kg [place] Body Weight (kg) 86.36 BMI 17.1 Weight change and time frame 5.3 Kg body weight gain in 1 week reported. Weight Status Underweight Subjective/Other Information RD consult for Dietary advancement, % intake of meals , and body weight change. Pt continues on Renal Diet and Nepro ONS TID, and receiving PBJ sandwichwes on each meal. 5.3 Kg body weight gain in 1 week reported. Pt's PO intake of meals has been Good (75-100%), according to ADL notes. Percent of energy/protein needs met: Prescribed Renal Diet provides for energy/protein needs (2, 072 Kcal/77 g) during LOS; additionally, Dietary Supplements will compensate for possible poor or insufficient PO intake of meals with 1,275 Kcal and 57 g of protein. Burn Absent Trauma Absent GI Symptoms None Food Allergy No Skin Integrity/Comment Redness, Dryness. Current % PO Good (75-100%) Minimum of two criteria Yes #1 Nutrition Diagnosis Underweight Comments: 5.3 Kg body weight gain in 1 week reported. Pt's PO intake of meals has been Good (75-100%), according to ADL notes. Diagnosis Progress(for reassessment Improved documentation) Is patient on ventilator? No Is Patient Ambulatory and/or Out of Bed Yes REE-(Distant-St. Jeor-ambulatory/OOB) [ 2060. [id number]] Calculation Used for Recommendations Distant-St or Additional Notes Protein: >1.2 g/Kg; >67 g/day. Fluids: 1 ml/Kcal, or as per MD. Nutrition Intervention Change Diet Order: Continue Renal Diet and Pt's Preferred food items. Add Supplement/Snack (indicate name/kcal Continue 8 fl oz Nepro w/ /protein ) CARBSTEADY; TID. Provides kCal: 1,275 Provides Protein (gm) 57 Goal #1 Compensate, through dietary supplementation, for possible poor or insufficient PO intake of meals during LOS. Goal #2 Maintain body weight within +/ -3% of admission body weight during LOS. Follow-Up By: 06/04/21 Additional Comments Continue monitoring food tolerance, %PO intake of meals , and BM.
--- NOTE | 2021-05-29 15:01 | Progress Note ---
Assessment and Plan Assessment Sepsis Pneumonia Malnutrition Acute respiratory failure with hypoxia COVID-19 positive HIV (human immunodeficiency virus infection) Progressive CKD likely ESRD Hypokalemia Plan: S/p HD yesterday for UF and clearance via right perm catheter, UF removed 1L No acute indication for HD today Assess need for HD on daily basis BILLIE could be related to HIV Associated Nephropathy Gentle potassium repletion Renal function reviewed, SCr level was 2.7 today, yesterday's SCr level was 4.6 On Bumex 1 mg IV BID D/C sodium bicarbonate tablets since pt is on HD Renal US showed CKD signs Renally dose medications Strict I&O's CM on board for outpatient HD placement Plan of care reviewed by Dr. Corral Subjective Date of service: 05/29/21 Principal diagnosis: ESRD Interval history: Pt on isolation for covid-19, reviewed medical chart, labs, and notes Objective - Vital Signs Vital signs: Vital Signs - 12hr 05/29/21 05/29/21 05/29/21 04:29 07:19 08:39 Temperature 99.0 F 98.2 F Pulse Rate 102 H 102 H Respiratory 18 18 Rate Blood Pressure 143/104 150/93 O2 Sat by Pulse 98 96 100 Oximetry 05/29/21 11:19 Temperature 98.6 F Pulse Rate 114 H Respiratory 16 Rate Blood Pressure 143/93 O2 Sat by Pulse 98 Oximetry - Lab 05/25/21 05:36 05/29/21 05:44 Most recent lab results Calcium 7.6 mg/dL (8.4-10.2) L 05/29/21 05:44 Magnesium 1.60 mg/dL (1.7-2.3) L 05/25/21 05:36 Medications & Allergies - Medications Allergies/Adverse Reactions: Allergies No Known Allergies Allergy (Verified 04/20/21 08:43) Home Medications: Home Medications Medication Instructions Recorded Confirmed Last Taken Type Multivit-Min/Folic/Vit K/Lycop 1 tab PO QDAY 04/21/21 05/13/21 3 Days Ago History [Men's Multivitamin Tablet] ~04/18/21 ALPRAZolam [Xanax TAB] 0.25 mg PO DAILY PRN #10 tablet 05/26/21 Unknown Rx Cholecalciferol Vit D3 [Vitamin D3 1,000 unit PO QDAY #30 tablet 05/26/21 Unknown Rx 1,000 UNIT TAB] Darunavir [Prezista] 800 mg PO QDAY #14 tablet 05/26/21 Unknown Rx Dolutegravir [Tivicay] 50 mg PO QDAY #14 tablet 05/26/21 Unknown Rx Fluconazole [Diflucan TAB] 200 mg PO QDAY #14 tablet 05/26/21 Unknown Rx Metoprolol Xl [Metoprolol 25 mg PO QDAY #30 tablet 05/26/21 Unknown Rx SUCCINATE ER TAB] Ritonavir 100 mg PO QDAY #14 tab 05/26/21 Unknown Rx Sodium Bicarbonate 1,300 mg PO TID #90 tablet 05/26/21 Unknown Rx Sulfamethoxazole/Trimethoprim 0.5 each PO MoWeFr #30 tablet 05/26/21 Unknown Rx [Bactrim DS TAB] lamiVUDine [Epivir Hbv] 100 mg PO QDAY #14 tab 05/26/21 Unknown Rx predniSONE 10 mg PO QDAY 21 Days #42 tab 05/26/21 Unknown Rx Active Medications: Generic Name Dose Route Start Last Admin Trade Name Freq PRN Reason Stop Dose Admin Acetaminophen 650 mg 05/10/21 11:26 05/20/21 09:00 Acetaminophen 325 Mg Tab PO 650 mg Q4H PRN Administration Pain MILD(1-3)/Fever >100.5/[place] Albuterol 2.5 mg 05/10/21 11:26 05/21/21 20:05 Albuterol 2.5 Mg/3 Ml Nebu IH 2.5 mg Q4HRT PRN Administration Shortness Of Breath Alprazolam 0.25 mg 05/15/21 09:38 05/28/21 08:58 Alprazolam 0.25 Mg Tab PO 0.25 mg DAILY PRN Administration Anxiety Ascorbic Acid 500 mg 05/10/21 22:00 05/29/21 09:31 Ascorbic Acid 500 Mg Tab PO 500 mg BID SANTOS Administration Bumetanide 1 mg 05/20/21 22:00 05/29/21 09:31 Bumetanide 1 Mg/4 Ml Inj IV 1 mg BID SANTOS Administration Cholecalciferol 1,000 unit 05/21/21 12:00 05/29/21 09:31 Cholecalciferol (Vit D3) 1000 Unit (25 Mcg) Tab PO 1,000 unit QDAY SANTOS Administration Cholestyramine Resin 4 gm 05/30/21 10:00 Cholestyramine (With Sugar) 4 Gm Packet PO QDAY SANTOS Darunavir 800 mg 05/10/21 14:45 05/29/21 09:31 Darunavir 800 Mg Tab PO 800 mg QDAY SANTOS Administration Dolutegravir Sodium 50 mg 05/10/21 15:00 05/29/21 09:31 Dolutegravir 50 Mg Tab PO 50 mg QDAY SANTOS Administration Fluconazole 200 mg 05/19/21 19:00 05/29/21 09:32 Fluconazole 200 Mg Tab PO 06/08/21 10:01 200 mg QDAY SANTOS Administration Protocol Guaifenesin 200 mg 05/25/21 08:25 05/28/21 18:20 Guaifenesin 100 Mg/5 Ml Oral Liqd PO 200 mg Q4H PRN Administration Cough Heparin Sodium (Porcine) 5,000 unit 05/10/21 22:00 05/29/21 09:32 Heparin 5,000 Unit/1 Ml Vial SUB-Q 5,000 unit Q12HR SANTOS Administration Hydralazine HCl 10 mg 05/23/21 21:30 05/26/21 17:37 Hydralazine 20 Mg/1 Ml Inj IV 10 mg Q4HR PRN Administration Blood Pressure Sodium Chloride 100 mls @ 999 mls/hr 05/13/21 13:10 Nacl 0.9% IV TRENT PRN Hypotension Lamivudine 100 mg 05/10/21 15:00 05/29/21 09:32 Lamivudine 50 Mg/5 Ml Oral Liqd PO 100 mg DAILY SANTOS Administration Metoprolol Succinate 50 mg 05/29/21 10:00 05/29/21 10:50 Metoprolol Succinate Xl 25 Mg Tab PO 50 mg QDAY [facility] Administration Multivitamins/Minerals 1 each 05/11/21 10:00 05/29/21 09:30 Multivitamins,Ther W-Minerals Tab PO 1 each QDAY [facility] Administration Ondansetron HCl 4 mg 05/10/21 11:26 05/20/21 12:16 Ondansetron 4 Mg/2 Ml Inj IV 4 mg Q8H PRN Administration Nausea And Vomiting Prednisone 30 mg 05/15/21 10:00 05/29/21 09:34 Prednisone 10 Mg Tab PO 30 mg QDAY SANTOS Administration Ritonavir 100 mg 05/10/21 15:00 05/29/21 09:31 Ritonavir 100 Mg Tab PO 100 mg QDAY SANTSO Administration Sodium Bicarbonate 1,300 mg 05/10/21 14:00 05/29/21 14:09 Sodium Bicarbonate 650 Mg Tab PO 1,300 mg TID SANTOS Administration Sodium Chloride 10 ml 05/10/21 22:00 05/29/21 09:33 Sodium Chloride 0.9% 10 Ml Flush Syringe IV 10 ml BID SANTOS Administration Sodium Chloride 10 ml 05/10/21 11:26 Sodium Chloride 0.9% 10 Ml Flush Syringe IV PRN PRN LINE FLUSH Trimethoprim/Sulfamethoxazole 1 each 05/26/21 10:00 05/29/21 09:30 Sulfamethoxazole/Trimethoprim 800/160mg Ds Tab PO 06/03/21 23:59 1 each Q12HR SANTOS Administration Protocol Trimethoprim/Sulfamethoxazole 0.5 each 06/04/21 22:00 Sulfamethoxazole/Trimethoprim 800/160mg Ds Tab PO MoWeFr SANTOS Zinc Sulfate 220 mg 05/10/21 22:00 05/29/21 09:30 Zinc Sulfate 220 Mg Cap PO 220 mg BID SANTOS Administration Zolpidem Tartrate 5 mg 05/22/21 22:00 05/27/21 00:09 Zolpidem 5 Mg Tab PO 5 mg QHS PRN Administration Sleep
[2021-05-29] MEDS ORDERED: POTASSIUM CHLORIDE ER 10 MEQ TAB PO ONE (16:00)
[2021-05-29] MEDS ORDERED: LOPERAMIDE 2 MG CAP PO ONE (20:53)
[2021-05-30 05:20] LABS: Hemoglobin 6.4 gm/dl (11.8-15.2); Mean Corpuscular HGB Conc 33 % (32-34); Mean Corpuscular Volume 97 fl (84-94); Platelet Count 209 K/mm3 (140-440); Red Blood Count 2.02 M/mm3 (3.65-5.03); Red Cell Distribution Width 18.7 % (13.2-15.2)
[2021-05-30 05:24] LABS: Calcium 7.3 mg/dL (8.4-10.2)
[2021-05-30 05:35] LABS: Hematocrit 19.5 % (35.5-45.6)
[2021-05-30] MEDS ORDERED: SODIUM CHLORIDE 0.9% 500 ML 500 ML IV ONE (05:47)
[2021-05-30] MEDS ORDERED: SODIUM CHLORIDE 0.9% 1000 ML 1,000 ML ONE (06:26)
[2021-05-30] MEDS: POTASSIUM CHLORIDE 10 MEQ 10 MEQ/100 ML BAG IV SCH ×4 (06:29→09:36)
[2021-05-30 06:36] LABS: Anisocytosis 1+; Basophils % (Manual) 0 % (0.0-1.8); Monocytes % (Manual) 0 % (0.0-7.3); Platelet Estimate Consistent w Auto; Total Cells Counted 100
--- NOTE | 2021-05-30 09:09 | Progress Note ---
Assessment and Plan Assessment and plan: 40-year-old male who was recently hospitalized and discharged earlier this month with a new diagnosis of HIV and suspected AIDS with associated renal dysfunction. Patient was also noted to have a diagnosis of COVID-19 pneumonia during that admission but not hypoxic at that time. Patient was recommended for outpatient follow-up with [facility]. 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 HIV associated nephropathy Accelerated hypertension Acute renal failure. COVID-19. Patient initially tested + 04/24/2021 but not a candidate for remdesivir. Acute hypoxic respiratory failure. Etiology secondary to Covid versus renal failure versus PCP pneumonia. Persistent sinus tachycardia 05/11/2021. ID has been consulted and we will follow up HIV viral load, CD4 count and genotype. Follow-up LDH 1 3 beta D glucan. ID started Mepron to cover P MARTINEZ and avoiding Bactrim due to renal failure. We started steroids given the new hypoxia. ID also initiated ART with lamivudine, darunavir plus ritonav ir and dolutegravir given the possibility of HIVAN. Consider pulmonary consultation. Nephrology following. Renal ultrasound shows signs of CKD. Nephrology to discuss hemodialysis initiation. Continue strict I's and O's daily and monitor renal function closely 05/12/2021. Patient is s/p placement of a right internal jugular tunneled cuffed hemodialysis catheter and initiation of hemodialysis on 05/11/2021. Patient is also undergo further hemodialysis today. CM consult to place patient at [facility] dialysis unit. We will follow up HIV viral load, CD4 count and genotype. Follow-up LDH 1 3 beta D glucan. ID started Mepron to cover P MARTINEZ and avoiding Bactrim due to renal failure. ID also initiated ART with lamivudine, darunavir plus ritonavir and dolutegravir given the possibility of HIVAN. Continue steroids given the hypoxia. Respiratory status has significantly improved after hemodialysis. I believe volume overload was the most significantly contributing factor/etiology. Follow-up serial chest x-ray. Patient currently with 2 L nasal cannula satting at 99% 05/13/2021. Continue hemodialysis per nephrology recommendations. Await outpatient arrangements for hemodialysis unit. We will follow up HIV viral load, CD4 count and genotype. Follow-up LDH 1 3 beta D glucan. ID started Mepron to cover P MARTINEZ and avoiding Bactrim due to renal failure. ID also initiated ART with lamivudine, darunavir plus ritonavir and dolutegravir given the possibility of HIVAN. Continue steroids given the hypoxia and change from Solu-Medrol IV to dexamethasone. Procalcitonin level was elevated at 6. We will continue IV antibiotics per ID recommendations 05/14/2021. Continue hemodialysis per nephrology recommendations. Await outpatient arrangements for hemodialysis unit. We will follow up HIV viral load, CD4 count and genotype. Follow-up LDH 1 3 beta D glucan. ID started Me pron to cover P MARTINEZ and avoiding Bactrim due to renal failure. ID also initiated ART with lamivudine, darunavir plus ritonavir and dolutegravir given the possibility of HIVAN. Continue dexamethasone. Patient to follow-up with health department in early May. Case management follow-up with regards to home ART before follow-up with the health department 05/15/2021. Continue hemodialysis per nephrology recommendations. Await outpatient arrangements for hemodialysis unit. Patient wants anxiety medication prior to dialysis. We will start Xanax 0.25 mg as needed. Continue lamivudine, darunavir plus ritonavir and dolutegravir given the possibility of HIVAN. Continue dexamethasone. Patient to follow-up with health department in early May. Case management follow-up with regards to home ART before follow-up with the health department 05/16/2021. Continue hemodialysis per nephrology recommendations. Await outpatient arrangements for hemodialysis unit. Renal US showed CKD signs. Strict I&O's daily. Obtain daily weights. Continue Xanax prior to hemodialysis for anxiety. Continue lamivudine, darunavir plus ritonavir and dolutegravir given the possibility of HIVAN. Continue dexamethasone. Patient to follow-up with health department in early May. Patient with elevated diastolic BP greater than 100. We will start Procardia 30 mg twice daily. 05/17/2021. Patient to be initiated on F hemodialysis schedule. Patient requesting Xanax for anxiety prior to hemodialysis session. Await outpatient arrangements for hemodialysis unit per case management. Renal ultrasound revealed signs of chronic kidney disease. Continue strict I&O's daily. Obtain daily weights. Continue lamivudine, darunavir plus ritonavir and dolutegravir given the possibility of HIVAN. Continue dexamethasone. Patient to follow-up with health department in early May. Patient's BP much better controlled with the addition of Procardia. 05/18: Hemodialysis was discontinued yesterday after 1 hour if patient request as he was feeling weak with hypotension. BP remains low to 80s. Given NS bolus management this morning. Procardia discontinued. Bumex is on hold. Excellent urine. Still feeling weak. Remains anxious. Asking to be sedated during dialysis. CXR ordered daily Dr. Graves shows mild localized subcutaneous emphysema and right-sided neck pain currently dialysis catheter is placed. A CT chest showed diabetes mellitus with emphysema-like cough. Vascular surgery is addressing this. Sinus tachycardia stable. On room air without acute respite distress at rest. Discussed with the patient, nursing staff and vascular surgery. 05/19:Patient is feeling much better after undergoing hemodialysis for 3 hours today.Breathing much better. Mild subcutis emphysema in the right supraclavicular fossa seems stable. This is assisted by pulmonary in consultation and reevaluation by today. No acute intervention required, expected to resolve by itself. Looks more comfortable and less anxious. Remains on 3 L of O2. 05/20: No acute events. Remains on 3 L O2. Pneumomediastinum and subcutaneous emphysema stable. Bactrim changed from p.o. to IV. Sinus tach worse today and received Lopressor IV x1 dose. Discussed with ID. 05/21: No acute events, stable, awaiting outpatient dialysis arrangements for discharge. 05/22: Chronic anxiety, better. Since tachycardia stable. Remains on 2 to 3 days of O2. Stable for discharge pending outpatient dialysis arrangements. Discussed with CM. 05/23: Remains stable for discharge pending outpatient dialysis arrangements by CM. 05/24: Remains stable for discharge pending outpatient dialysis treatments with CM. 05/25: Remains stable for discharge pending outpatient dialysis treatments with CM. Continue IV Bactrim per ID recommendations to complete a total of 21 days. Patient should also have tapering steroids over the next 21 days. ART was started on 05/10/2021. Continue fluconazole 200 mg every 24 hours x3 weeks 05/26: Continue Bactrim, steroids, ART and fluconazole. Patient with plans to discharge when outpatient hemodialysis chair available. 05/27: Patient with persistent sinus tachycardia. Consider cardiology consultation. Check echocardiogram. Continue metoprolol 25 mg p.o. daily for now. Continue Bactrim, steroids, ART and fluconazole. Patient with plans to discharge when outpatient hemodialysis chair available. 05/28: Follow-up echocardiogram results. Increase metoprolol to 50 mg p.o. daily. Continue Bactrim, steroids, ART and fluconazole. Patient with plans to discharge when outpatient hemodialysis chair available. 05/29: Left ventricle size and systolic function is normal. Mild diastolic dysfunction. LVEF 50-55%. Increase metoprolol to 50 mg p.o. daily. Continue Bactrim, steroids, ART and fluconazole. Patient with plans to discharge when outpatient hemodialysis chair available. 05/30: Continue metoprolol to 50 mg p.o. daily. Continue Bactrim, steroids, ART and fluconazole. Patient with plans to discharge when outpatient hemodialysis chair available. History Interval history: No new issues overnight Hospitalist Physical - Constitutional Vitals: Temp Pulse Resp BP Pulse Ox 98.6 F 95 H 20 128/98 98 05/29/21 11:19 05/29/21 20:36 05/29/21 19:19 05/29/21 20:36 05/30/21 08:54 General appearance: Present: no acute distress, well-nourished - EENT Eyes: Present: PERRL, EOM intact ENT: hearing intact, clear oral mucosa, dentition normal - Neck Neck: Present: supple, normal ROM - Respiratory Respiratory effort: normal Respiratory: bilateral: CTA - Cardiovascular Rhythm: regular Heart Sounds: Present: S1 & S2. Absent: gallop, rub - Extremities Extremities: no ischemia, No edema, Full ROM - Abdominal General gastrointestinal: soft, non-tender, non-distended, normal bowel sounds - Integumentary Integumentary: Present: clear, warm, dry - Neurologic Neurologic: CNII-XII intact, moves all extremities HEART Score - HEART Score Troponin: Troponin T 0.011 ng/mL (0.00-0.029) 05/19/21 06:50 Results - Labs CBC & Chem 7: 05/30/21 04:48 05/30/21 04:48 Labs: Laboratory Last Values WBC 3.2 K/mm3 (4.5-11.0) L 05/30/21 04:48 RBC 2.02 M/mm3 (3.65-5.03) L 05/30/21 04:48 Hgb 6.4 gm/dl (11.8-15.2) L 05/30/21 04:48 Hct 19.5 % (35.5-45.6) L* 05/30/21 04:48 MCV 97 fl (84-94) H 05/30/21 04:48 MCH 32 pg (28-32) 05/30/21 04:48 MCHC 33 % (32-34) 05/30/21 04:48 RDW 18.7 % (13.2-15.2) H 05/30/21 04:48 Plt Count 209 K/mm3 (140-440) 05/30/21 04:48 Lymph % (Auto) Not Reportable 05/20/21 09:45 [place] % (Auto) Not Reportable 05/20/21 09:45 Eos % (Auto) Not Reportable 05/20/21 09:45 Baso % (Auto) Not Reportable 05/20/21 09:45 Lymph # (Auto) Not Reportable 05/20/21 09:45 [place] # (Auto) Not Reportable 05/20/21 09:45 Eos # (Auto) Not Reportable 05/20/21 09:45 Baso # (Auto) Not Reportable 05/20/21 09:45 Add Manual Diff Complete 05/30/21 04:48 Total Counted 100 05/30/21 04:48 Seg Neutrophils % Biological Inspector 05/20/21 09:45 Seg Neuts % (Manual) 94.0 % (40.0-70.0) H 05/30/21 04:48 Band Neutrophils % 0 % 05/30/21 04:48 Lymphocytes % (Manual) 5.0 % (13.4-35.0) L 05/30/21 04:48 Reactive Lymphs % (Man) 0 % 05/30/21 04:48 Monocytes % (Manual) 0 % (0.0-7.3) 05/30/21 04:48 Eosinophils % (Manual) 1.0 % (0.0-4.3) 05/30/21 04:48 Basophils % (Manual) 0 % (0.0-1.8) 05/30/21 04:48 Metamyelocytes % 0 % 05/30/21 04:48 Myelocytes % 0 % 05/30/21 04:48 Promyelocytes % 0 % 05/30/21 04:48 Blast Cells % 0 % 05/30/21 04:48 Nucleated RBC % Not Reportable 05/30/21 04:48 Seg Neutrophils # Not Reportable 05/20/21 09:45 Seg Neutrophils # Man 3.0 K/mm3 (1.8-7.7) 05/30/21 04:48 Band Neutrophils # 0.0 K/mm3 05/30/21 04:48 Abs Lymphs (Manual) 291 cells/uL (850-3900) L 05/10/21 17:09 Lymphocytes # (Manual) 0.2 K/mm3 (1.2-5.4) L 05/30/21 04:48 Abs React Lymphs (Man) 0.0 K/mm3 05/30/21 04:48 Monocytes # (Manual) 0.0 K/mm3 (0.0-0.8) 05/30/21 04:48 Eosinophils # (Manual) 0.0 K/mm3 (0.0-0.4) 05/30/21 04:48 Basophils # (Manual) 0.0 K/mm3 (0.0-0.1) 05/30/21 04:48 Metamyelocytes # 0.0 K/mm3 05/30/21 04:48 Myelocytes # 0.0 K/mm3 05/30/21 04:48 Promyelocytes # 0.0 K/mm3 05/30/21 04:48 Blast Cells # 0.0 K/mm3 05/30/21 04:48 WBC Morphology Not Reportable 05/30/21 04:48 Hypersegmented Neuts Not Reportable 05/30/21 04:48 Hyposegmented Neuts Not Reportable 05/30/21 04:48 Hypogranular Neuts Not Reportable 05/30/21 04:48 Smudge Cells Not Reportable 05/30/21 04:48 Toxic Granulation Not Reportable 05/30/21 04:48 Toxic Vacuolation Not Reportable 05/30/21 04:48 Dohle Bodies Not Reportable 05/30/21 04:48 Pelger-Huet Anomaly Not Reportable 05/30/21 04:48 Karishma Rods Not Reportable 05/30/21 04:48 Platelet Estimate Consistent w auto 05/30/21 04:48 Clumped Platelets Not Reportable 05/30/21 04:48 Plt Clumps, EDTA Not Reportable 05/30/21 04:48 Large Platelets Not Reportable 05/30/21 04:48 Giant Platelets Not Reportable 05/30/21 04:48 Platelet Satelliting Not Reportable 05/30/21 04:48 Plt Morphology Comment Not Reportable 05/30/21 04:48 RBC Morphology Not Reportable 05/30/21 04:48 Dimorphic RBCs Not Reportable 05/30/21 04:48 Polychromasia Not Reportable 05/30/21 04:48 Hypochromasia Not Reportable 05/30/21 04:48 Poikilocytosis Not Reportable 05/30/21 04:48 Anisocytosis 1+ 05/30/21 04:48 Microcytosis Not Reportable 05/30/21 04:48 Macrocytosis Not Reportable 05/30/21 04:48 Spherocytes Not Reportable 05/30/21 04:48 Pappenheimer Bodies Not Reportable 05/30/21 04:48 Sickle Cells Not Reportable 05/30/21 04:48 Target Cells Not Reportable 05/30/21 04:48 Tear Drop Cells Not Reportable 05/30/21 04:48 Ovalocytes Not Reportable 05/30/21 04:48 Helmet Cells Not Reportable 05/30/21 04:48 [place] Bodies Not Reportable 05/30/21 04:48 [place] Rings Not Reportable 05/30/21 04:48 [place] Cells Not Reportable 05/30/21 04:48 Bite Cells Not Reportable 05/30/21 04:48 Crenated Cell Not Reportable 05/30/21 04:48 Elliptocytes Not Reportable 05/30/21 04:48 Acanthocytes (Spur) Not Reportable 05/30/21 04:48 Rouleaux Not Reportable 05/30/21 04:48 Hemoglobin C Crystals Not Reportable 05/30/21 04:48 Schistocytes Not Reportable 05/30/21 04:48 Malaria parasites Not Reportable 05/30/21 04:48 Angus Bodies Not Reportable 05/30/21 04:48 Hem Pathologist Commnt No 05/30/21 04:48 D-Dimer 730.16 ng/mlDDU (0-234) H 05/10/21 09:45 Sodium 136 mmol/L (137-145) L 05/30/21 04:48 Potassium 2.6 mmol/L (3.6-5.0) L* D 05/30/21 04:48 Chloride 100.9 mmol/L (98-107) 05/30/21 04:48 Carbon Dioxide 21 mmol/L (22-30) L 05/30/21 04:48 Anion Gap 17 mmol/L 05/30/21 04:48 BUN 36 mg/dL (9-20) H 05/30/21 04:48 Creatinine 3.2 mg/dL (0.8-1.3) H 05/30/21 04:48 Estimated GFR 26 ml/min 05/30/21 04:48 BUN/Creatinine Ratio 11 % 05/30/21 04:48 Glucose 111 mg/dL (75-100) H 05/30/21 04:48 Lactic Acid 2.10 mmol/L (0.7-2.0) H* 05/11/21 09:53 Calcium 7.3 mg/dL (8.4-10.2) L 05/30/21 04:48 Magnesium 1.60 mg/dL (1.7-2.3) L 05/25/21 05:36 Ferritin 1426.0 ng/mL (30.0-300.0) H 05/10/21 09:45 Total Bilirubin < 0.20 mg/dL (0.1-1.2) 05/25/21 05:36 AST 33 units/L (5-40) 05/25/21 05:36 ALT 31 units/L (7-56) 05/25/21 05:36 Alkaline Phosphatase 85 units/L (35-129) 05/25/21 05:36 Lactate Dehydrogenase 600 units/L (91-180) H 05/10/21 09:45 Lactate Dehydrogenase 623 units/L (91-180) H 05/10/21 09:45 Total Creatine Kinase 31 units/L (55-170) L 05/10/21 09:45 CK-MB (CK-2) < 1.0 ng/mL (0.0-4.0) 05/10/21 09:45 CK-MB (CK-2) Rel Index 3.2 (0-4) 05/10/21 09:45 Troponin T 0.011 ng/mL (0.00-0.029) 05/19/21 06:50 C-Reactive Protein 8.90 mg/dL (0.00-1.30) H 05/10/21 09:45 C-Reactive Protein 9.00 mg/dL (0.00-1.30) H 05/10/21 09:45 NT-Pro-B Natriuret Pep 4065 pg/mL (0-450) H 05/10/21 09:45 Total Protein 6.6 g/dL (6.3-8.2) 05/25/21 05:36 Albumin 2.6 g/dL (3.9-5) L 05/25/21 05:36 Albumin/Globulin Ratio 0.7 % 05/25/21 05:36 Procalcitonin 6.81 ng/mL (<0.15) 05/10/21 09:45 TSH 2.390 mlU/mL (0.270-4.200) 05/10/21 09:45 Free T4 0.94 ng/dL (0.76-1.46) 05/10/21 09:45 Urine Color Yellow (Yellow) 05/10/21 13:49 Urine Turbidity Clear (Clear) 05/10/21 13:49 Urine pH 8.0 (5.0-7.0) H 05/10/21 13:49 Ur Specific [place] 1.025 (1.003-1.030) 05/10/21 13:49 Urine Protein 100 mg/dl mg/dL (Negative) 05/10/21 13:49 Urine Glucose (UA) Negative mg/dL (Negative) 05/10/21 13:49 Urine Ketones Negative mg/dL (Negative) 05/10/21 13:49 Urine Blood Negative (Negative) 05/10/21 13:49 Urine Nitrite Negative (Negative) 05/10/21 13:49 Ur Reducing Substances Not Reportable 05/10/21 13:49 Urine Bilirubin Negative (Negative) 05/10/21 13:49 Urine Ictotest Not Reportable 05/10/21 13:49 Urine Urobilinogen 0.0 mg/dL (<2.0) 05/10/21 13:49 Ur Leukocyte Esterase Negative (Negative) 05/10/21 13:49 Urine WBC (Auto) 2.0 /HPF (0.0-6.0) 05/10/21 13:49 Urine RBC (Auto) < 1.0 /HPF (0.0-6.0) 05/10/21 13:49 U Epithel Cells (Auto) 1.0 /HPF (0-13.0) 05/10/21 13:49 Lymph Enumerat CD4/CD8 0.00 (0.86-5.00) L 05/10/21 17:09 % CD3 Cells 78 % (57-85) 05/10/21 17:09 Absolute CD3 Count 228 cells/uL (840-3060) L 05/10/21 17:09 % CD4 Cells 0 % (30-61) L 05/10/21 17:09 Absolute CD4 Count 0 cells/uL (490-1740) L 05/10/21 17:09 % CD8 Cells 78 % (12-42) H 05/10/21 17:09 Absolute CD8 Count 239 cells/uL (180-1170) 05/10/21 17:09 % CD19 Cells 1 % (6-29) L 05/10/21 17:09 Absolute CD19 Count 2 cells/uL (110-660) L 05/10/21 17:09 Coronavirus (PCR) Positive (Negative) A 05/24/21 10:50 Hepatitis A IgM Ab Non-reactive (NonReactive) 05/11/21 09:53 Hep Bs Antigen Non-reactive (Negative) 05/11/21 09:53 Hep B Core IgM Ab Non-reactive (NonReactive) 05/11/21 09:53 Hepatitis C Antibody Non-reactive (NonReactive) 05/11/21 09:53 HIV-1 RNA PCR copies/ml 53642 Copies/mL H 05/10/21 17:09 HIV-1 RNA (PCR) log 4.71 Log cps/mL H 05/10/21 17:09 HIV-1 Genotyping Detected H 05/11/21 09:53 Miscellaneous Test Flexitest 1 H 05/11/21 12:41 Blood Type O POSITIVE 05/30/21 05:55 Antibody Screen Negative 05/30/21 05:55 Crossmatch See Detail 05/30/21 05:55 Krishnan/IV: Voiding Method Urinal Active Medications - Current Medications Current Medications: Generic Name Dose Route Start Last Admin Trade Name Freq PRN Reason Stop Dose Admin Acetaminophen 650 mg 05/10/21 11:26 05/20/21 09:00 Acetaminophen 325 Mg Tab PO 650 mg Q4H PRN Administration Pain MILD(1-3)/Fever >100.5/LANGLEY Albuterol 2.5 mg 05/10/21 11:26 05/21/21 20:05 Albuterol 2.5 Mg/3 Ml Nebu IH 2.5 mg Q4HRT PRN Administration Shortness Of Breath Alprazolam 0.25 mg 05/15/21 09:38 05/28/21 08:58 Alprazolam 0.25 Mg Tab PO 0.25 mg DAILY PRN Administration Anxiety Ascorbic Acid 500 mg 05/10/21 22:00 05/29/21 21:00 Ascorbic Acid 500 Mg Tab PO 500 mg BID SANTOS Administration Bumetanide 1 mg 05/20/21 22:00 05/29/21 21:00 Bumetanide 1 Mg/4 Ml Inj IV 1 mg BID SANTOS Administration Cholecalciferol 1,000 unit 05/21/21 12:00 05/29/21 09:31 Cholecalciferol (Vit D3) 1000 Unit (25 Mcg) Tab PO 1,000 unit QDAY SANTOS Administration Cholestyramine Resin 4 gm 05/30/21 10:00 Cholestyramine (With Sugar) 4 Gm Packet PO QDAY SANTOS Darunavir 800 mg 05/10/21 14:45 05/29/21 09:31 Darunavir 800 Mg Tab PO 800 mg QDAY SANTOS Administration Dolutegravir Sodium 50 mg 05/10/21 15:00 05/29/21 09:31 Dolutegravir 50 Mg Tab PO 50 mg QDAY SANTOS Administration Fluconazole 200 mg 05/19/21 19:00 05/29/21 09:32 Fluconazole 200 Mg Tab PO 06/08/21 10:01 200 mg QDAY SANTOS Administration Protocol Guaifenesin 200 mg 05/25/21 08:25 05/28/21 18:20 Guaifenesin 100 Mg/5 Ml Oral Liqd PO 200 mg Q4H PRN Administration Cough Heparin Sodium (Porcine) 5,000 unit 05/10/21 22:00 05/29/21 21:00 Heparin 5,000 Unit/1 Ml Vial SUB-Q 5,000 unit Q12HR SANTOS Administration Hydralazine HCl 10 mg 05/23/21 21:30 05/26/21 17:37 Hydralazine 20 Mg/1 Ml Inj IV 10 mg Q4HR PRN Administration Blood Pressure Sodium Chloride 100 mls @ 999 mls/hr 05/13/21 13:10 05/30/21 06:30 Nacl 0.9% IV 50 mls/hr TRENT PRN Administration Hypotension Potassium Chloride 10 meq in 100 mls @ 100 mls/hr 05/30/21 06:00 05/30/21 08:49 Kcl 10meq/100ml IV 05/30/21 09:59 100 mls/hr Q1H SANTOS Administration Lamivudine 100 mg 05/10/21 15:00 05/29/21 09:32 Lamivudine 50 Mg/5 Ml Oral Liqd PO 100 mg DAILY SANTOS Administration Metoprolol Succinate 50 mg 05/29/21 10:00 05/29/21 10:50 Metoprolol Succinate Xl 25 Mg Tab PO 50 mg QDAY SANTOS Administration Multivitamins/Minerals 1 each 05/11/21 10:00 05/29/21 09:30 Multivitamins,Ther W-Minerals Tab PO 1 each QDAY SANTOS Administration Ondansetron HCl 4 mg 05/10/21 11:26 05/20/21 12:16 Ondansetron 4 Mg/2 Ml Inj IV 4 mg Q8H PRN Administration Nausea And Vomiting Prednisone 30 mg 05/15/21 10:00 05/29/21 09:34 Prednisone 10 Mg Tab PO 30 mg QDAY SANTOS Administration Ritonavir 100 mg 05/10/21 15:00 05/29/21 09:31 Ritonavir 100 Mg Tab PO 100 mg QDAY SANTOS Administration Sodium Chloride 10 ml 05/10/21 22:00 05/29/21 21:00 Sodium Chloride 0.9% 10 Ml Flush Syringe IV 10 ml BID SANTOS Administration Sodium Chloride 10 ml 05/10/21 11:26 Sodium Chloride 0.9% 10 Ml Flush Syringe IV PRN PRN LINE FLUSH Trimethoprim/Sulfamethoxazole 1 each 05/26/21 10:00 05/29/21 21:00 Sulfamethoxazole/Trimethoprim 800/160mg Ds Tab PO 06/03/21 23:59 1 each Q12HR SANTOS Administration Protocol Trimethoprim/Sulfamethoxazole 0.5 each 06/04/21 22:00 Sulfamethoxazole/Trimethoprim 800/160mg Ds Tab PO MoWeFr SANTOS Zinc Sulfate 220 mg 05/10/21 22:00 05/29/21 21:00 Zinc Sulfate 220 Mg Cap PO 220 mg BID SANTOS Administration Zolpidem Tartrate 5 mg 05/22/21 22:00 05/27/21 00:09 Zolpidem 5 Mg Tab PO 5 mg QHS PRN Administration Sleep Nutrition/Malnutrition Assess - Dietary Evaluation Nutrition/Malnutrition Findings: Nutrition Notes Start: 05/11/21 12:44 Freq: Status: Active Protocol: Document 05/28/21 19:41 DALY (Rec: 05/28/21 19:51 DALY [id number]) Nutrition Notes Initial or Follow up Reassessment Current Diagnosis Acute Kidney Injury,CKD (stage V CKD),Sepsis,Respiratory Failure,Malnutrition Other Pertinent Diagnosis COVID-19/Pneumonia, BILLIE/CKD/ ESRD+HD, HIV/Nephropathy/AIDS, Esophagitis ... Current Diet Renal Diet (since D 05/14), D Suppl (since D 05/14). Labs/Tests 05/25: Na 135, K 3.4, Cl 97.7, BUN 38, Crea 4.6, Glu 113, Mg 1.6. Pertinent Medications 05/28: Vit C, Vit D3, ZnSO4, others nutritionally unremarkable. Height 6 ft 2 in Weight 60.6 kg [place] Body Weight (kg) 86.36 BMI 17.1 Weight change and time frame 5.3 Kg body weight gain in 1 week reported. Weight Status Underweight Subjective/Other Information RD consult for Dietary advancement, % intake of meals , and body weight change. Pt continues on Renal Diet and Nepro ONS TID, and receiving PBJ sandwichwes on each meal. 5.3 Kg body weight gain in 1 week reported. Pt's PO intake of meals has been Good (75-100%), according to ADL notes. Percent of energy/protein needs met: Prescribed Renal Diet provides for energy/protein needs (2, 072 Kcal/77 g) during LOS; additionally, Dietary Supplements will compensate for possible poor or insufficient PO intake of meals with 1,275 Kcal and 57 g of protein. Burn Absent Trauma Absent GI Symptoms None Food Allergy No Skin Integrity/Comment Redness, Dryness. Current % PO Good (75-100%) Minimum of two criteria Yes #1 Nutrition Diagnosis Underweight Comments: 5.3 Kg body weight gain in 1 week reported. Pt's PO intake of meals has been Good (75-100%), according to ADL notes. Diagnosis Progress(for reassessment Improved documentation) Is patient on ventilator? No Is Patient Ambulatory and/or Out of Bed Yes REE[place]-ambulatory/OOB) [ [id number]] Calculation Used for Recommendations [facility] Additional Notes Protein: >1.2 g/Kg; >67 g/day. Fluids: 1 ml/Kcal, or as per MD. Nutrition Intervention Change Diet Order: Continue Renal Diet and Pt's Preferred food items. Add Supplement/Snack (indicate name/kcal Continue 8 fl oz Nepro w/ /protein ) CARBSTEADY; TID. Provides kCal: 1,275 Provides Protein (gm) 57 Goal #1 Compensate, through dietary supplementation, for possible poor or insufficient PO intake of meals during LOS. Goal #2 Maintain body weight within +/ -3% of admission body weight during LOS. Follow-Up By: 06/04/21 Additional Comments Continue monitoring food tolerance, %PO intake of meals , and BM.
[2021-05-30] MEDS: lamiVUDine 50 MG/5 ML ORAL LIQD PO SCH (09:33)
[2021-05-30] MEDS: DOLUTEGRAVIR 50 MG TAB PO SCH (09:33)
[2021-05-30] MEDS: RITONAVIR 100 MG TAB PO SCH (09:34)
[2021-05-30] MEDS: MULTIVITAMINS,THER W-MINERALS TAB PO SCH (09:34)
[2021-05-30] MEDS: predniSONE 10 MG TAB PO SCH (09:34)
[2021-05-30] MEDS: SULFAMETHOXAZOLE/TRIMETHOPRIM 800/160MG DS TAB PO SCH ×2 (09:34→22:08)
[2021-05-30] MEDS: ZINC SULFATE 220 MG CAP PO SCH ×2 (09:34→22:08)
[2021-05-30] MEDS: CHOLECALCIFEROL (VIT D3) 1000 UNIT (25 mcg) TAB PO SCH (09:34)
[2021-05-30] MEDS: ASCORBIC ACID 500 MG TAB PO SCH ×2 (09:35→22:08)
[2021-05-30] MEDS: HEPARIN 5,000 UNIT/1 ML VIAL SUB-Q SCH ×2 (09:35→22:08)
[2021-05-30] MEDS: METOPROLOL SUCCINATE XL 25 MG TAB PO SCH (09:35)
[2021-05-30] MEDS: BUMETANIDE 1 MG/4 ML INJ IV SCH ×2 (09:36→22:08)
[2021-05-30] MEDS: FLUCONAZOLE 200 MG TAB PO SCH (09:38)
[2021-05-30] MEDS ORDERED: CHOLESTYRAMINE (WITH SUGAR) 4 GM PACKET PO SCH (10:00)
[2021-05-30] MEDS: DARUNAVIR 800 MG TAB PO SCH (10:29)
[2021-05-30] MEDS: ONDANSETRON 4 MG/2 ML INJ IV PRN (10:53)
[2021-05-30] MEDS ORDERED: SODIUM CHLORIDE 0.9% 250ML 250 ML ONE (11:27)
--- NOTE | 2021-05-30 13:35 | Progress Note ---
Assessment and Plan Assessment Sepsis Pneumonia Malnutrition Acute respiratory failure with hypoxia COVID-19 positive HIV (human immunodeficiency virus infection) Progressive CKD likely ESRD Hypokalemia Plan: Labs reviewed, SCr level was 3.2 today, yesterday's SCr level was 2.7 No acute indication for HD today Evaluate pt tomorrow to determine if HD is needed. Assess need for HD on daily basis BILLIE could be related to HIV Associated Nephropathy Replete potassium Check serum K and magnesium level at 1800 On Bumex 1 mg IV BID Renal US showed CKD signs Renally dose medications Strict I&O's Intake= 1660 ml Output= 301 ml (Net= 1359 ml) CM on board for outpatient HD placement in case needed Plan of care reviewed by Dr. Corral Subjective Principal diagnosis: ESRD Interval history: Pt on isolation for covid-19, reviewed medical chart, labs, and notes Objective - Vital Signs Vital signs: Vital Signs - 12hr 05/30/21 05/30/21 05/30/21 04:07 06:58 07:30 Temperature Pulse Rate 103 H 92 H Respiratory 18 Rate Blood Pressure 141/101 141/93 O2 Sat by Pulse 95 100 100 Oximetry 05/30/21 05/30/21 05/30/21 08:54 11:03 11:52 Temperature Pulse Rate 109 H 103 H Respiratory 18 16 Rate Blood Pressure 129/96 138/92 O2 Sat by Pulse 98 92 95 Oximetry 05/30/21 05/30/21 05/30/21 12:15 12:16 12:30 Temperature 98.3 F Pulse Rate 99 H 102 H 100 H Respiratory 16 16 16 Rate Blood Pressure 136/95 136/95 142/100 O2 Sat by Pulse 93 93 95 Oximetry - Lab 05/30/21 04:48 05/30/21 04:48 Most recent lab results Calcium 7.3 mg/dL (8.4-10.2) L 05/30/21 04:48 Magnesium 1.60 mg/dL (1.7-2.3) L 05/25/21 05:36 Medications & Allergies - Medications Allergies/Adverse Reactions: Allergies No Known Allergies Allergy (Verified 04/20/21 08:43) Home Medications: Home Medications Medication Instructions Recorded Confirmed Last Taken Type Multivit-Min/Folic/Vit K/Lycop 1 tab PO QDAY 04/21/21 05/13/21 3 Days Ago History [Men's Multivitamin Tablet] ~04/18/21 ALPRAZolam [Xanax TAB] 0.25 mg PO DAILY PRN #10 tablet 05/26/21 Unknown Rx Cholecalciferol Vit D3 [Vitamin D3 1,000 unit PO QDAY #30 tablet 05/26/21 Unknown Rx 1,000 UNIT TAB] Darunavir [Prezista] 800 mg PO QDAY #14 tablet 05/26/21 Unknown Rx Dolutegravir [Tivicay] 50 mg PO QDAY #14 tablet 05/26/21 Unknown Rx Fluconazole [Diflucan TAB] 200 mg PO QDAY #14 tablet 05/26/21 Unknown Rx Metoprolol Xl [Metoprolol 25 mg PO QDAY #30 tablet 05/26/21 Unknown Rx SUCCINATE ER TAB] Ritonavir 100 mg PO QDAY #14 tab 05/26/21 Unknown Rx Sodium Bicarbonate 1,300 mg PO TID #90 tablet 05/26/21 Unknown Rx Sulfamethoxazole/Trimethoprim 0.5 each PO MoWeFr #30 tablet 05/26/21 Unknown Rx [Bactrim DS TAB] lamiVUDine [Epivir Hbv] 100 mg PO QDAY #14 tab 05/26/21 Unknown Rx predniSONE 10 mg PO QDAY 21 Days #42 tab 05/26/21 Unknown Rx Active Medications: Generic Name Dose Route Start Last Admin Trade Name Freq PRN Reason Stop Dose Admin Acetaminophen 650 mg 05/10/21 11:26 05/20/21 09:00 Acetaminophen 325 Mg Tab PO 650 mg Q4H PRN Administration Pain MILD(1-3)/Fever >100.5/[place] Albuterol 2.5 mg 05/10/21 11:26 05/21/21 20:05 Albuterol 2.5 Mg/3 Ml Nebu IH 2.5 mg Q4HRT PRN Administration Shortness Of Breath Alprazolam 0.25 mg 05/15/21 09:38 05/28/21 08:58 Alprazolam 0.25 Mg Tab PO 0.25 mg DAILY PRN Administration Anxiety Ascorbic Acid 500 mg 05/10/21 22:00 05/30/21 09:35 Ascorbic Acid 500 Mg Tab PO 500 mg BID SANTOS Administration Bumetanide 1 mg 05/20/21 22:00 05/30/21 09:36 Bumetanide 1 Mg/4 Ml Inj IV 1 mg BID SANTOS Administration Cholecalciferol 1,000 unit 05/21/21 12:00 05/30/21 09:34 Cholecalciferol (Vit D3) 1000 Unit (25 Mcg) Tab PO 1,000 unit QDAY SANTOS Administration Cholestyramine Resin 4 gm 05/30/21 10:00 05/30/21 09:33 Cholestyramine (With Sugar) 4 Gm Packet PO 4 gm QDAY SANTOS Administration Darunavir 800 mg 05/10/21 14:45 05/30/21 10:29 Darunavir 800 Mg Tab PO 800 mg QDAY SANTOS Administration Dolutegravir Sodium 50 mg 05/10/21 15:00 05/30/21 09:33 Dolutegravir 50 Mg Tab PO 50 mg QDAY SANTOS Administration Fluconazole 200 mg 05/19/21 19:00 05/30/21 09:38 Fluconazole 200 Mg Tab PO 06/08/21 10:01 200 mg QDAY SANTOS Administration Protocol Guaifenesin 200 mg 05/25/21 08:25 05/28/21 18:20 Guaifenesin 100 Mg/5 Ml Oral Liqd PO 200 mg Q4H PRN Administration Cough Heparin Sodium (Porcine) 5,000 unit 05/10/21 22:00 05/30/21 09:35 Heparin 5,000 Unit/1 Ml Vial SUB-Q 5,000 unit Q12HR SANTOS Administration Hydralazine HCl 10 mg 05/23/21 21:30 05/26/21 17:37 Hydralazine 20 Mg/1 Ml Inj IV 10 mg Q4HR PRN Administration Blood Pressure Sodium Chloride 100 mls @ 999 mls/hr 05/13/21 13:10 05/30/21 06:30 Nacl 0.9% IV 50 mls/hr TRENT PRN Administration Hypotension Lamivudine 100 mg 05/10/21 15:00 05/30/21 09:33 Lamivudine 50 Mg/5 Ml Oral Liqd PO 100 mg DAILY SANTOS Administration Metoprolol Succinate 50 mg 05/29/21 10:00 05/30/21 09:35 Metoprolol Succinate Xl 25 Mg Tab PO 50 mg QDAY SANTOS Administration Multivitamins/Minerals 1 each 05/11/21 10:00 05/30/21 09:34 Multivitamins,Ther W-Minerals Tab PO 1 each QDAY SANTOS Administration Ondansetron HCl 4 mg 05/10/21 11:26 05/30/21 10:53 Ondansetron 4 Mg/2 Ml Inj IV 4 mg Q8H PRN Administration Nausea And Vomiting Prednisone 30 mg 05/15/21 10:00 05/30/21 09:34 Prednisone 10 Mg Tab PO 30 mg QDAY SANTOS Administration Ritonavir 100 mg 05/10/21 15:00 05/30/21 09:34 Ritonavir 100 Mg Tab PO 100 mg QDAY SANTOS Administration Sodium Chloride 10 ml 05/10/21 22:00 05/30/21 11:34 Sodium Chloride 0.9% 10 Ml Flush Syringe IV Not Given BID SANTOS Sodium Chloride 10 ml 05/10/21 11:26 Sodium Chloride 0.9% 10 Ml Flush Syringe IV PRN PRN LINE FLUSH Trimethoprim/Sulfamethoxazole 1 each 05/26/21 10:00 05/30/21 09:34 Sulfamethoxazole/Trimethoprim 800/160mg Ds Tab PO 06/03/21 23:59 1 each Q12HR SANTOS Administration Protocol Trimethoprim/Sulfamethoxazole 0.5 each 06/04/21 22:00 Sulfamethoxazole/Trimethoprim 800/160mg Ds Tab PO MoWeFr [facility] Zinc Sulfate 220 mg 05/10/21 22:00 05/30/21 09:34 Zinc Sulfate 220 Mg Cap PO 220 mg BID SANTOS Administration Zolpidem Tartrate 5 mg 05/22/21 22:00 05/27/21 00:09 Zolpidem 5 Mg Tab PO 5 mg QHS PRN Administration Sleep
[2021-05-30 16:40] LABS: Hematocrit 25.9 % (35.5-45.6); Hemoglobin 8.8 gm/dl (11.8-15.2)
[2021-05-31] MEDS: lamiVUDine 50 MG/5 ML ORAL LIQD PO SCH (01:50)
--- NOTE | 2021-05-31 08:14 | Progress Note ---
Assessment and Plan Assessment and plan: 40-year-old male who was recently hospitalized and discharged earlier this month with a new diagnosis of HIV and suspected AIDS with associated renal dysfunction. Patient was also noted to have a diagnosis of COVID-19 pneumonia during that admission but not hypoxic at that time. Patient was recommended for outpatient follow-up with [facility]. 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 HIV associated nephropathy Accelerated hypertension Acute renal failure. COVID-19. Patient initially tested + 04/24/2021 but not a candidate for remdesivir. Acute hypoxic respiratory failure. Etiology secondary to Covid versus renal failure versus PCP pneumonia. Persistent sinus tachycardia 05/11/2021. ID has been consulted and we will follow up HIV viral load, CD4 count and genotype. Follow-up LDH 1 3 beta D glucan. ID started Mepron to cover P MARTINEZ and avoiding Bactrim due to renal failure. We started steroids given the new hypoxia. ID also initiated ART with lamivudine, darunavir plus ritonav ir and dolutegravir given the possibility of HIVAN. Consider pulmonary consultation. Nephrology following. Renal ultrasound shows signs of CKD. Nephrology to discuss hemodialysis initiation. Continue strict I's and O's daily and monitor renal function closely 05/12/2021. Patient is s/p placement of a right internal jugular tunneled cuffed hemodialysis catheter and initiation of hemodialysis on 05/11/2021. Patient is also undergo further hemodialysis today. CM consult to place patient at [facility] dialysis unit. We will follow up HIV viral load, CD4 count and genotype. Follow-up LDH 1 3 beta D glucan. ID started Mepron to cover P MARTINEZ and avoiding Bactrim due to renal failure. ID also initiated ART with lamivudine, darunavir plus ritonavir and dolutegravir given the possibility of HIVAN. Continue steroids given the hypoxia. Respiratory status has significantly improved after hemodialysis. I believe volume overload was the most significantly contributing factor/etiology. Follow-up serial chest x-ray. Patient currently with 2 L nasal cannula satting at 99% 05/13/2021. Continue hemodialysis per nephrology recommendations. Await outpatient arrangements for hemodialysis unit. We will follow up HIV viral load, CD4 count and genotype. Follow-up LDH 1 3 beta D glucan. ID started Mepron to cover P MARTINEZ and avoiding Bactrim due to renal failure. ID also initiated ART with lamivudine, darunavir plus ritonavir and dolutegravir given the possibility of HIVAN. Continue steroids given the hypoxia and change from Solu-Medrol IV to dexamethasone. Procalcitonin level was elevated at 6. We will continue IV antibiotics per ID recommendations 05/14/2021. Continue hemodialysis per nephrology recommendations. Await outpatient arrangements for hemodialysis unit. We will follow up HIV viral load, CD4 count and genotype. Follow-up LDH 1 3 beta D glucan. ID started Me pron to cover P MARTINEZ and avoiding Bactrim due to renal failure. ID also initiated ART with lamivudine, darunavir plus ritonavir and dolutegravir given the possibility of HIVAN. Continue dexamethasone. Patient to follow-up with health department in early May. Case management follow-up with regards to home ART before follow-up with the health department 05/15/2021. Continue hemodialysis per nephrology recommendations. Await outpatient arrangements for hemodialysis unit. Patient wants anxiety medication prior to dialysis. We will start Xanax 0.25 mg as needed. Continue lamivudine, darunavir plus ritonavir and dolutegravir given the possibility of HIVAN. Continue dexamethasone. Patient to follow-up with health department in early May. Case management follow-up with regards to home ART before follow-up with the health department 05/16/2021. Continue hemodialysis per nephrology recommendations. Await outpatient arrangements for hemodialysis unit. Renal US showed CKD signs. Strict I&O's daily. Obtain daily weights. Continue Xanax prior to hemodialysis for anxiety. Continue lamivudine, darunavir plus ritonavir and dolutegravir given the possibility of HIVAN. Continue dexamethasone. Patient to follow-up with health department in early May. Patient with elevated diastolic BP greater than 100. We will start Procardia 30 mg twice daily. 05/17/2021. Patient to be initiated on F hemodialysis schedule. Patient requesting Xanax for anxiety prior to hemodialysis session. Await outpatient arrangements for hemodialysis unit per case management. Renal ultrasound revealed signs of chronic kidney disease. Continue strict I&O's daily. Obtain daily weights. Continue lamivudine, darunavir plus ritonavir and dolutegravir given the possibility of HIVAN. Continue dexamethasone. Patient to follow-up with health department in early May. Patient's BP much better controlled with the addition of Procardia. 05/18: Hemodialysis was discontinued yesterday after 1 hour if patient request as he was feeling weak with hypotension. BP remains low to 80s. Given NS bolus management this morning. Procardia discontinued. Bumex is on hold. Excellent urine. Still feeling weak. Remains anxious. Asking to be sedated during dialysis. CXR ordered daily Dr. Graves shows mild localized subcutaneous emphysema and right-sided neck pain currently dialysis catheter is placed. A CT chest showed diabetes mellitus with emphysema-like cough. Vascular surgery is addressing this. Sinus tachycardia stable. On room air without acute respite distress at rest. Discussed with the patient, nursing staff and vascular surgery. 05/19:Patient is feeling much better after undergoing hemodialysis for 3 hours today.Breathing much better. Mild subcutis emphysema in the right supraclavicular fossa seems stable. This is assisted by pulmonary in consultation and reevaluation by today. No acute intervention required, expected to resolve by itself. Looks more comfortable and less anxious. Remains on 3 L of O2. 05/20: No acute events. Remains on 3 L O2. Pneumomediastinum and subcutaneous emphysema stable. Bactrim changed from p.o. to IV. Sinus tach worse today and received Lopressor IV x1 dose. Discussed with ID. 05/21: No acute events, stable, awaiting outpatient dialysis arrangements for discharge. 05/22: Chronic anxiety, better. Since tachycardia stable. Remains on 2 to 3 days of O2. Stable for discharge pending outpatient dialysis arrangements. Discussed with CM. 05/23: Remains stable for discharge pending outpatient dialysis arrangements by CM. 05/24: Remains stable for discharge pending outpatient dialysis treatments with CM. 05/25: Remains stable for discharge pending outpatient dialysis treatments with CM. Continue IV Bactrim per ID recommendations to complete a total of 21 days. Patient should also have tapering steroids over the next 21 days. ART was started on 05/10/2021. Continue fluconazole 200 mg every 24 hours x3 weeks 05/26: Continue Bactrim, steroids, ART and fluconazole. Patient with plans to discharge when outpatient hemodialysis chair available. 05/27: Patient with persistent sinus tachycardia. Consider cardiology consultation. Check echocardiogram. Continue metoprolol 25 mg p.o. daily for now. Continue Bactrim, steroids, ART and fluconazole. Patient with plans to discharge when outpatient hemodialysis chair available. 05/28: Follow-up echocardiogram results. Increase metoprolol to 50 mg p.o. daily. Continue Bactrim, steroids, ART and fluconazole. Patient with plans to discharge when outpatient hemodialysis chair available. 05/29: Left ventricle size and systolic function is normal. Mild diastolic dysfunction. LVEF 50-55%. Increase metoprolol to 50 mg p.o. daily. Continue Bactrim, steroids, ART and fluconazole. Patient with plans to discharge when outpatient hemodialysis chair available. 05/30: Continue metoprolol to 50 mg p.o. daily. Continue Bactrim, steroids, ART and fluconazole. Patient with plans to discharge when outpatient hemodialysis chair available. 05/31: Heart rate better with increased metoprolol. Continue Bactrim, steroids, ART and fluconazole. Patient with plans to discharge when outpatient hemodialysis chair available. Patient is s/p 1 unit PRBCs. Check Hemoccult of stool. History Interval history: No new issues overnight Hospitalist Physical - Constitutional Vitals: Temp Pulse Resp BP Pulse Ox 98.8 F 96 H 16 153/98 95 05/31/21 04:14 05/31/21 04:14 05/31/21 04:14 05/31/21 04:14 05/31/21 04:14 General appearance: Present: no acute distress, well-nourished - EENT Eyes: Present: PERRL, EOM intact ENT: hearing intact, clear oral mucosa, dentition normal - Neck Neck: Present: supple, normal ROM - Respiratory Respiratory effort: normal Respiratory: bilateral: CTA - Cardiovascular Rhythm: regular Heart Sounds: Present: S1 & S2. Absent: gallop, rub - Extremities Extremities: no ischemia, No edema, Full ROM - Abdominal General gastrointestinal: soft, non-tender, non-distended, normal bowel sounds - Integumentary Integumentary: Present: clear, warm, dry - Neurologic Neurologic: CNII-XII intact, moves all extremities HEART Score - HEART Score Troponin: Troponin T 0.011 ng/mL (0.00-0.029) 05/19/21 06:50 Results - Labs CBC & Chem 7: 05/30/21 16:17 05/30/21 17:59 Labs: Laboratory Last Values WBC 3.2 K/mm3 (4.5-11.0) L 05/30/21 04:48 RBC 2.02 M/mm3 (3.65-5.03) L 05/30/21 04:48 Hgb 8.8 gm/dl (11.8-15.2) L 05/30/21 16:17 Hct 25.9 % (35.5-45.6) L D 05/30/21 16:17 MCV 97 fl (84-94) H 05/30/21 04:48 MCH 32 pg (28-32) 05/30/21 04:48 MCHC 33 % (32-34) 05/30/21 04:48 RDW 18.7 % (13.2-15.2) H 05/30/21 04:48 Plt Count 209 K/mm3 (140-440) 05/30/21 04:48 Lymph % (Auto) Not Reportable 05/20/21 09:45 Rankin % (Auto) Not Reportable 05/20/21 09:45 Eos % (Auto) Not Reportable 05/20/21 09:45 Baso % (Auto) Not Reportable 05/20/21 09:45 Lymph # (Auto) Not Reportable 05/20/21 09:45 Rankin # (Auto) Not Reportable 05/20/21 09:45 Eos # (Auto) Not Reportable 05/20/21 09:45 Baso # (Auto) Not Reportable 05/20/21 09:45 Add Manual Diff Complete 05/30/21 04:48 Total Counted 100 05/30/21 04:48 Seg Neutrophils % Occupational Physician 05/20/21 09:45 Seg Neuts % (Manual) 94.0 % (40.0-70.0) H 05/30/21 04:48 Band Neutrophils % 0 % 05/30/21 04:48 Lymphocytes % (Manual) 5.0 % (13.4-35.0) L 05/30/21 04:48 Reactive Lymphs % (Man) 0 % 05/30/21 04:48 Monocytes % (Manual) 0 % (0.0-7.3) 05/30/21 04:48 Eosinophils % (Manual) 1.0 % (0.0-4.3) 05/30/21 04:48 Basophils % (Manual) 0 % (0.0-1.8) 05/30/21 04:48 Metamyelocytes % 0 % 05/30/21 04:48 Myelocytes % 0 % 05/30/21 04:48 Promyelocytes % 0 % 05/30/21 04:48 Blast Cells % 0 % 05/30/21 04:48 Nucleated RBC % Not Reportable 05/30/21 04:48 Seg Neutrophils # Not Reportable 05/20/21 09:45 Seg Neutrophils # Man 3.0 K/mm3 (1.8-7.7) 05/30/21 04:48 Band Neutrophils # 0.0 K/mm3 05/30/21 04:48 Abs Lymphs (Manual) 291 cells/uL (850-3900) L 05/10/21 17:09 Lymphocytes # (Manual) 0.2 K/mm3 (1.2-5.4) L 05/30/21 04:48 Abs React Lymphs (Man) 0.0 K/mm3 05/30/21 04:48 Monocytes # (Manual) 0.0 K/mm3 (0.0-0.8) 05/30/21 04:48 Eosinophils # (Manual) 0.0 K/mm3 (0.0-0.4) 05/30/21 04:48 Basophils # (Manual) 0.0 K/mm3 (0.0-0.1) 05/30/21 04:48 Metamyelocytes # 0.0 K/mm3 05/30/21 04:48 Myelocytes # 0.0 K/mm3 05/30/21 04:48 Promyelocytes # 0.0 K/mm3 05/30/21 04:48 Blast Cells # 0.0 K/mm3 05/30/21 04:48 WBC Morphology Not Reportable 05/30/21 04:48 Hypersegmented Neuts Not Reportable 05/30/21 04:48 Hyposegmented Neuts Not Reportable 05/30/21 04:48 Hypogranular Neuts Not Reportable 05/30/21 04:48 Smudge Cells Not Reportable 05/30/21 04:48 Toxic Granulation Not Reportable 05/30/21 04:48 Toxic Vacuolation Not Reportable 05/30/21 04:48 Dohle Bodies Not Reportable 05/30/21 04:48 Pelger-Huet Anomaly Not Reportable 05/30/21 04:48 Karishma Rods Not Reportable 05/30/21 04:48 Platelet Estimate Consistent w auto 05/30/21 04:48 Clumped Platelets Not Reportable 05/30/21 04:48 Plt Clumps, EDTA Not Reportable 05/30/21 04:48 Large Platelets Not Reportable 05/30/21 04:48 Giant Platelets Not Reportable 05/30/21 04:48 Platelet Satelliting Not Reportable 05/30/21 04:48 Plt Morphology Comment Not Reportable 05/30/21 04:48 RBC Morphology Not Reportable 05/30/21 04:48 Dimorphic RBCs Not Reportable 05/30/21 04:48 Polychromasia Not Reportable 05/30/21 04:48 Hypochromasia Not Reportable 05/30/21 04:48 Poikilocytosis Not Reportable 05/30/21 04:48 Anisocytosis 1+ 05/30/21 04:48 Microcytosis Not Reportable 05/30/21 04:48 Macrocytosis Not Reportable 05/30/21 04:48 Spherocytes Not Reportable 05/30/21 04:48 Pappenheimer Bodies Not Reportable 05/30/21 04:48 Sickle Cells Not Reportable 05/30/21 04:48 Target Cells Not Reportable 05/30/21 04:48 Tear Drop Cells Not Reportable 05/30/21 04:48 Ovalocytes Not Reportable 05/30/21 04:48 Helmet Cells Not Reportable 05/30/21 04:48 Bragg-Rosser Bodies Not Reportable 05/30/21 04:48 [place] Rings Not Reportable 05/30/21 04:48 Bernarda Cells Not Reportable 05/30/21 04:48 Bite Cells Not Reportable 05/30/21 04:48 Crenated Cell Not Reportable 05/30/21 04:48 Elliptocytes Not Reportable 05/30/21 04:48 Acanthocytes (Spur) Not Reportable 05/30/21 04:48 Rouleaux Not Reportable 05/30/21 04:48 Hemoglobin C Crystals Not Reportable 05/30/21 04:48 Schistocytes Not Reportable 05/30/21 04:48 Malaria parasites Not Reportable 05/30/21 04:48 Angus Bodies Not Reportable 05/30/21 04:48 Hem Pathologist Commnt No 05/30/21 04:48 D-Dimer 730.16 ng/mlDDU (0-234) H 05/10/21 09:45 Sodium 136 mmol/L (137-145) L 05/30/21 04:48 Potassium 3.0 mmol/L (3.6-5.0) L 05/30/21 17:59 Chloride 100.9 mmol/L (98-107) 05/30/21 04:48 Carbon Dioxide 21 mmol/L (22-30) L 05/30/21 04:48 Anion Gap 17 mmol/L 05/30/21 04:48 BUN 36 mg/dL (9-20) H 05/30/21 04:48 Creatinine 3.2 mg/dL (0.8-1.3) H 05/30/21 04:48 Estimated GFR 26 ml/min 05/30/21 04:48 BUN/Creatinine Ratio 11 % 05/30/21 04:48 Glucose 111 mg/dL (75-100) H 05/30/21 04:48 Lactic Acid 2.10 mmol/L (0.7-2.0) H* 05/11/21 09:53 Calcium 7.3 mg/dL (8.4-10.2) L 05/30/21 04:48 Magnesium 1.40 mg/dL (1.7-2.3) L 05/30/21 17:59 Ferritin 1426.0 ng/mL (30.0-300.0) H 05/10/21 09:45 Total Bilirubin < 0.20 mg/dL (0.1-1.2) 05/25/21 05:36 AST 33 units/L (5-40) 05/25/21 05:36 ALT 31 units/L (7-56) 05/25/21 05:36 Alkaline Phosphatase 85 units/L (35-129) 05/25/21 05:36 Lactate Dehydrogenase 600 units/L (91-180) H 05/10/21 09:45 Lactate Dehydrogenase 623 units/L (91-180) H 05/10/21 09:45 Total Creatine Kinase 31 units/L (55-170) L 05/10/21 09:45 CK-MB (CK-2) < 1.0 ng/mL (0.0-4.0) 05/10/21 09:45 CK-MB (CK-2) Rel Index 3.2 (0-4) 05/10/21 09:45 Troponin T 0.011 ng/mL (0.00-0.029) 05/19/21 06:50 C-Reactive Protein 8.90 mg/dL (0.00-1.30) H 05/10/21 09:45 C-Reactive Protein 9.00 mg/dL (0.00-1.30) H 05/10/21 09:45 NT-Pro-B Natriuret Pep 4065 pg/mL (0-450) H 05/10/21 09:45 Total Protein 6.6 g/dL (6.3-8.2) 05/25/21 05:36 Albumin 2.6 g/dL (3.9-5) L 05/25/21 05:36 Albumin/Globulin Ratio 0.7 % 05/25/21 05:36 Procalcitonin 6.81 ng/mL (<0.15) 05/10/21 09:45 TSH 2.390 mlU/mL (0.270-4.200) 05/10/21 09:45 Free T4 0.94 ng/dL (0.76-1.46) 05/10/21 09:45 Urine Color Yellow (Yellow) 05/10/21 13:49 Urine Turbidity Clear (Clear) 05/10/21 13:49 Urine pH 8.0 (5.0-7.0) H 05/10/21 13:49 Ur Specific [place] 1.025 (1.003-1.030) 05/10/21 13:49 Urine Protein 100 mg/dl mg/dL (Negative) 05/10/21 13:49 Urine Glucose (UA) Negative mg/dL (Negative) 05/10/21 13:49 Urine Ketones Negative mg/dL (Negative) 05/10/21 13:49 Urine Blood Negative (Negative) 05/10/21 13:49 Urine Nitrite Negative (Negative) 05/10/21 13:49 Ur Reducing Substances Not Reportable 05/10/21 13:49 Urine Bilirubin Negative (Negative) 05/10/21 13:49 Urine Ictotest Not Reportable 05/10/21 13:49 Urine Urobilinogen 0.0 mg/dL (<2.0) 05/10/21 13:49 Ur Leukocyte Esterase Negative (Negative) 05/10/21 13:49 Urine WBC (Auto) 2.0 /HPF (0.0-6.0) 05/10/21 13:49 Urine RBC (Auto) < 1.0 /HPF (0.0-6.0) 05/10/21 13:49 U Epithel Cells (Auto) 1.0 /HPF (0-13.0) 05/10/21 13:49 Lymph Enumerat CD4/CD8 0.00 (0.86-5.00) L 05/10/21 17:09 % CD3 Cells 78 % (57-85) 05/10/21 17:09 Absolute CD3 Count 228 cells/uL (840-3060) L 05/10/21 17:09 % CD4 Cells 0 % (30-61) L 05/10/21 17:09 Absolute CD4 Count 0 cells/uL (490-1740) L 05/10/21 17:09 % CD8 Cells 78 % (12-42) H 05/10/21 17:09 Absolute CD8 Count 239 cells/uL (180-1170) 05/10/21 17:09 % CD19 Cells 1 % (6-29) L 05/10/21 17:09 Absolute CD19 Count 2 cells/uL (110-660) L 05/10/21 17:09 C. difficile Tox (PCR) Negative (Negative) 05/30/21 07:00 Coronavirus (PCR) Positive (Negative) A 05/24/21 10:50 Hepatitis A IgM Ab Non-reactive (NonReactive) 05/11/21 09:53 Hep Bs Antigen Non-reactive (Negative) 05/11/21 09:53 Hep B Core IgM Ab Non-reactive (NonReactive) 05/11/21 09:53 Hepatitis C Antibody Non-reactive (NonReactive) 05/11/21 09:53 HIV-1 RNA PCR copies/ml 12502 Copies/mL H 05/10/21 17:09 HIV-1 RNA (PCR) log 4.71 Log cps/mL H 05/10/21 17:09 HIV-1 Genotyping Detected H 05/11/21 09:53 Miscellaneous Test Flexitest 1 H 05/11/21 12:41 Blood Type O POSITIVE 05/30/21 05:55 Antibody Screen Negative 05/30/21 05:55 Crossmatch See Detail 05/30/21 05:55 Microbiology: Microbiology 03/05/22 Unknown Stool Stool for WBCs - Final Rare Polymorphonuclear Cells Seen Krishnan/IV: Voiding Method Bedpan Active Medications - Current Medications Current Medications: Generic Name Dose Route Start Last Admin Trade Name Freq PRN Reason Stop Dose Admin Acetaminophen 650 mg 05/10/21 11:26 05/20/21 09:00 Acetaminophen 325 Mg Tab PO 650 mg Q4H PRN Administration Pain MILD(1-3)/Fever >100.5/LANGLEY Albuterol 2.5 mg 05/10/21 11:26 05/21/21 20:05 Albuterol 2.5 Mg/3 Ml Nebu IH 2.5 mg Q4HRT PRN Administration Shortness Of Breath Alprazolam 0.25 mg 05/15/21 09:38 05/28/21 08:58 Alprazolam 0.25 Mg Tab PO 0.25 mg DAILY PRN Administration Anxiety Ascorbic Acid 500 mg 05/10/21 22:00 05/30/21 22:08 Ascorbic Acid 500 Mg Tab PO 500 mg BID SANTOS Administration Bumetanide 1 mg 05/20/21 22:00 05/30/21 22:08 Bumetanide 1 Mg/4 Ml Inj IV 1 mg BID SANTOS Administration Cholecalciferol 1,000 unit 05/21/21 12:00 05/30/21 09:34 Cholecalciferol (Vit D3) 1000 Unit (25 Mcg) Tab PO 1,000 unit QDAY SANTOS Administration Cholestyramine Resin 4 gm 05/30/21 10:00 05/30/21 09:33 Cholestyramine (With Sugar) 4 Gm Packet PO 4 gm QDAY SANTOS Administration Darunavir 800 mg 05/10/21 14:45 05/30/21 10:29 Darunavir 800 Mg Tab PO 800 mg QDAY SANTOS Administration Dolutegravir Sodium 50 mg 05/10/21 15:00 05/30/21 09:33 Dolutegravir 50 Mg Tab PO 50 mg QDAY SANTOS Administration Fluconazole 200 mg 05/19/21 19:00 05/30/21 09:38 Fluconazole 200 Mg Tab PO 06/08/21 10:01 200 mg QDAY SANTOS Administration Protocol Guaifenesin 200 mg 05/25/21 08:25 05/28/21 18:20 Guaifenesin 100 Mg/5 Ml Oral Liqd PO 200 mg Q4H PRN Administration Cough Heparin Sodium (Porcine) 5,000 unit 05/10/21 22:00 05/30/21 22:08 Heparin 5,000 Unit/1 Ml Vial SUB-Q 5,000 unit Q12HR SANTOS Administration Hydralazine HCl 10 mg 05/23/21 21:30 05/26/21 17:37 Hydralazine 20 Mg/1 Ml Inj IV 10 mg Q4HR PRN Administration Blood Pressure Sodium Chloride 100 mls @ 999 mls/hr 05/13/21 13:10 05/30/21 06:30 Nacl 0.9% IV 50 mls/hr TRENT PRN Administration Hypotension Lamivudine 100 mg 05/10/21 15:00 05/30/21 09:33 Lamivudine 50 Mg/5 Ml Oral Liqd PO 100 mg DAILY SANTOS Administration Metoprolol Succinate 50 mg 05/29/21 10:00 05/30/21 09:35 Metoprolol Succinate Xl 25 Mg Tab PO 50 mg QDAY SANTOS Administration Multivitamins/Minerals 1 each 05/11/21 10:00 05/30/21 09:34 Multivitamins,Ther W-Minerals Tab PO 1 each QDAY SANTOS Administration Ondansetron HCl 4 mg 05/10/21 11:26 05/30/21 10:53 Ondansetron 4 Mg/2 Ml Inj IV 4 mg Q8H PRN Administration Nausea And Vomiting Prednisone 30 mg 05/15/21 10:00 05/30/21 09:34 Prednisone 10 Mg Tab PO 30 mg QDAY SANTOS Administration Ritonavir 100 mg 05/10/21 15:00 05/30/21 09:34 Ritonavir 100 Mg Tab PO 100 mg QDAY SANTOS Administration Sodium Chloride 10 ml 05/10/21 22:00 05/30/21 22:08 Sodium Chloride 0.9% 10 Ml Flush Syringe IV 10 ml BID SANTOS Administration Sodium Chloride 10 ml 05/10/21 11:26 Sodium Chloride 0.9% 10 Ml Flush Syringe IV PRN PRN LINE FLUSH Trimethoprim/Sulfamethoxazole 1 each 05/26/21 10:00 05/30/21 22:08 Sulfamethoxazole/Trimethoprim 800/160mg Ds Tab PO 06/03/21 23:59 1 each Q12HR SANTOS Administration Protocol Trimethoprim/Sulfamethoxazole 0.5 each 06/04/21 22:00 Sulfamethoxazole/Trimethoprim 800/160mg Ds Tab PO MoWeFr SANTOS Zinc Sulfate 220 mg 05/10/21 22:00 05/30/21 22:08 Zinc Sulfate 220 Mg Cap PO 220 mg BID SANTOS Administration Zolpidem Tartrate 5 mg 05/22/21 22:00 05/27/21 00:09 Zolpidem 5 Mg Tab PO 5 mg QHS PRN Administration Sleep Nutrition/Malnutrition Assess - Dietary Evaluation Nutrition/Malnutrition Findings: Nutrition Notes Start: 05/11/21 12:44 Freq: Status: Active Protocol: Document 05/28/21 19:41 DALY (Rec: 05/28/21 19:51 DALY [id number]) Nutrition Notes Initial or Follow up Reassessment Current Diagnosis Acute Kidney Injury,CKD (stage V CKD),Sepsis,Respiratory Failure,Malnutrition Other Pertinent Diagnosis COVID-19/Pneumonia, BILLIE/CKD/ ESRD+HD, HIV/Nephropathy/AIDS, Esophagitis ... Current Diet Renal Diet (since D 05/14), D Suppl (since D 05/14). Labs/Tests 05/25: Na 135, K 3.4, Cl 97.7, BUN 38, Crea 4.6, Glu 113, Mg 1.6. Pertinent Medications 05/28: Vit C, Vit D3, ZnSO4, others nutritionally unremarkable. Height 6 ft 2 in Weight 60.6 kg [place] Body Weight (kg) 86.36 BMI 17.1 Weight change and time frame 5.3 Kg body weight gain in 1 week reported. Weight Status Underweight Subjective/Other Information RD consult for Dietary advancement, % intake of meals , and body weight change. Pt continues on Renal Diet and Nepro ONS TID, and receiving PBJ sandwichwes on each meal. 5.3 Kg body weight gain in 1 week reported. Pt's PO intake of meals has been Good (75-100%), according to ADL notes. Percent of energy/protein needs met: Prescribed Renal Diet provides for energy/protein needs (2, 072 Kcal/77 g) during LOS; additionally, Dietary Supplements will compensate for possible poor or insufficient PO intake of meals with 1,275 Kcal and 57 g of protein. Burn Absent Trauma Absent GI Symptoms None Food Allergy No Skin Integrity/Comment Redness, Dryness. Current % PO Good (75-100%) Minimum of two criteria Yes #1 Nutrition Diagnosis Underweight Comments: 5.3 Kg body weight gain in 1 week reported. Pt's PO intake of meals has been Good (75-100%), according to ADL notes. Diagnosis Progress(for reassessment Improved documentation) Is patient on ventilator? No Is Patient Ambulatory and/or Out of Bed Yes REE-([facility]-ambulatory/OOB) [ 2060. [id number]] Calculation Used for Recommendations [facility] Additional Notes Protein: >1.2 g/Kg; >67 g/day. Fluids: 1 ml/Kcal, or as per MD. Nutrition Intervention Change Diet Order: Continue Renal Diet and Pt's Preferred food items. Add Supplement/Snack (indicate name/kcal Continue 8 fl oz Nepro w/ /protein ) CARBSTEADY; TID. Provides kCal: 1,275 Provides Protein (gm) 57 Goal #1 Compensate, through dietary supplementation, for possible poor or insufficient PO intake of meals during LOS. Goal #2 Maintain body weight within +/ -3% of admission body weight during LOS. Follow-Up By: 06/04/21 Additional Comments Continue monitoring food tolerance, %PO intake of meals , and BM.
[2021-05-31 08:29] LABS: Calcium 8.1 mg/dL (8.4-10.2)
[2021-05-31] MEDS: ALPRAZolam 0.25 MG TAB PO PRN (09:37)
--- NOTE | 2021-05-31 11:15 | Progress Note ---
Assessment and Plan Sepsis Pneumonia Malnutrition Acute respiratory failure with hypoxia COVID-19 positive HIV (human immunodeficiency virus infection) Progressive CKD likely ESRD Hypokalemia Plan: HD today for clearance and volume removal will check 24 hours creatinine clearance Assess need for HD on daily basis BILLIE could be related to HIV Associated Nephropathy Replete potassium Renal US showed CKD signs Renally dose medications Strict I&O's Subjective Date of service: 05/31/21 Principal diagnosis: ESRD Interval history: no overnight events Objective - Vital Signs Vital signs: Vital Signs - 12hr 05/31/21 04:14 Temperature 98.8 F Pulse Rate 96 H Respiratory 16 Rate Blood Pressure 153/98 O2 Sat by Pulse 95 Oximetry - Lab 05/30/21 16:17 05/31/21 07:45 Most recent lab results Calcium 8.1 mg/dL (8.4-10.2) L 05/31/21 07:45 Magnesium 1.40 mg/dL (1.7-2.3) L 05/31/21 07:45 Medications & Allergies - Medications Allergies/Adverse Reactions: Allergies No Known Allergies Allergy (Verified 04/20/21 08:43) Home Medications: Home Medications Medication Instructions Recorded Confirmed Last Taken Type Multivit-Min/Folic/Vit K/Lycop 1 tab PO QDAY 04/21/21 05/13/21 3 Days Ago History [Men's Multivitamin Tablet] ~04/18/21 ALPRAZolam [Xanax TAB] 0.25 mg PO DAILY PRN #10 tablet 05/26/21 Unknown Rx Cholecalciferol Vit D3 [Vitamin D3 1,000 unit PO QDAY #30 tablet 05/26/21 Unknown Rx 1,000 UNIT TAB] Darunavir [Prezista] 800 mg PO QDAY #14 tablet 05/26/21 Unknown Rx Dolutegravir [Tivicay] 50 mg PO QDAY #14 tablet 05/26/21 Unknown Rx Fluconazole [Diflucan TAB] 200 mg PO QDAY #14 tablet 05/26/21 Unknown Rx Metoprolol Xl [Metoprolol 25 mg PO QDAY #30 tablet 05/26/21 Unknown Rx SUCCINATE ER TAB] Ritonavir 100 mg PO QDAY #14 tab 05/26/21 Unknown Rx Sodium Bicarbonate 1,300 mg PO TID #90 tablet 05/26/21 Unknown Rx Sulfamethoxazole/Trimethoprim 0.5 each PO MoWeFr #30 tablet 05/26/21 Unknown Rx [Bactrim DS TAB] lamiVUDine [Epivir Hbv] 100 mg PO QDAY #14 tab 05/26/21 Unknown Rx predniSONE 10 mg PO QDAY 21 Days #42 tab 05/26/21 Unknown Rx Active Medications: Generic Name Dose Route Start Last Admin Trade Name Freq PRN Reason Stop Dose Admin Acetaminophen 650 mg 05/10/21 11:26 05/20/21 09:00 Acetaminophen 325 Mg Tab PO 650 mg Q4H PRN Administration Pain MILD(1-3)/Fever >100.5/LANGLEY Albuterol 2.5 mg 05/10/21 11:26 05/21/21 20:05 Albuterol 2.5 Mg/3 Ml Nebu IH 2.5 mg Q4HRT PRN Administration Shortness Of Breath Alprazolam 0.25 mg 05/15/21 09:38 05/31/21 09:37 Alprazolam 0.25 Mg Tab PO 0.25 mg DAILY PRN Administration Anxiety Ascorbic Acid 500 mg 05/10/21 22:00 05/30/21 22:08 Ascorbic Acid 500 Mg Tab PO 500 mg BID SANTOS Administration Bumetanide 1 mg 05/20/21 22:00 05/30/21 22:08 Bumetanide 1 Mg/4 Ml Inj IV 1 mg BID SANTOS Administration Cholecalciferol 1,000 unit 05/21/21 12:00 05/30/21 09:34 Cholecalciferol (Vit D3) 1000 Unit (25 Mcg) Tab PO 1,000 unit QDAY SANTOS Administration Cholestyramine Resin 4 gm 05/31/21 14:00 Cholestyramine (With Sugar) 4 Gm Packet PO DAILY@1400 SANTOS Darunavir 800 mg 05/10/21 14:45 05/30/21 10:29 Darunavir 800 Mg Tab PO 800 mg QDAY SANTOS Administration Dolutegravir Sodium 50 mg 05/10/21 15:00 05/30/21 09:33 Dolutegravir 50 Mg Tab PO 50 mg QDAY SANTOS Administration Fluconazole 200 mg 05/19/21 19:00 05/30/21 09:38 Fluconazole 200 Mg Tab PO 06/08/21 10:01 200 mg QDAY SANTOS Administration Protocol Guaifenesin 200 mg 05/25/21 08:25 05/28/21 18:20 Guaifenesin 100 Mg/5 Ml Oral Liqd PO 200 mg Q4H PRN Administration Cough Heparin Sodium (Porcine) 5,000 unit 05/10/21 22:00 05/30/21 22:08 Heparin 5,000 Unit/1 Ml Vial SUB-Q 5,000 unit Q12HR SANTOS Administration Hydralazine HCl 10 mg 05/23/21 21:30 05/26/21 17:37 Hydralazine 20 Mg/1 Ml Inj IV 10 mg Q4HR PRN Administration Blood Pressure Sodium Chloride 100 mls @ 999 mls/hr 05/13/21 13:10 05/30/21 06:30 Nacl 0.9% IV 50 mls/hr TRENT PRN Administration Hypotension Lamivudine 100 mg 05/10/21 15:00 05/30/21 09:33 Lamivudine 50 Mg/5 Ml Oral Liqd PO 100 mg DAILY SANTOS Administration Metoprolol Succinate 50 mg 05/29/21 10:00 05/30/21 09:35 Metoprolol Succinate Xl 25 Mg Tab PO 50 mg QDAY SANTOS Administration Multivitamins/Minerals 1 each 05/11/21 10:00 05/30/21 09:34 Multivitamins,Ther W-Minerals Tab PO 1 each QDAY SANTOS Administration Ondansetron HCl 4 mg 05/10/21 11:26 05/30/21 10:53 Ondansetron 4 Mg/2 Ml Inj IV 4 mg Q8H PRN Administration Nausea And Vomiting Prednisone 20 mg 05/31/21 11:00 Prednisone 20 Mg Tab PO 06/04/21 10:01 QDAY SANTOS Prednisone 10 mg 06/05/21 10:00 Prednisone 10 Mg Tab PO 06/09/21 10:01 QDAY SANTOS Ritonavir 100 mg 05/10/21 15:00 05/30/21 09:34 Ritonavir 100 Mg Tab PO 100 mg QDAY SANTOS Administration Sodium Chloride 10 ml 05/10/21 22:00 05/30/21 22:08 Sodium Chloride 0.9% 10 Ml Flush Syringe IV 10 ml BID SANTOS Administration Sodium Chloride 10 ml 05/10/21 11:26 Sodium Chloride 0.9% 10 Ml Flush Syringe IV PRN PRN LINE FLUSH Trimethoprim/Sulfamethoxazole 1 each 05/26/21 10:00 05/30/21 22:08 Sulfamethoxazole/Trimethoprim 800/160mg Ds Tab PO 06/03/21 23:59 1 each Q12HR SANTOS Administration Protocol Trimethoprim/Sulfamethoxazole 0.5 each 06/04/21 22:00 Sulfamethoxazole/Trimethoprim 800/160mg Ds Tab PO MoWeFr SANTOS Zinc Sulfate 220 mg 05/10/21 22:00 05/30/21 22:08 Zinc Sulfate 220 Mg Cap PO 220 mg BID SANTOS Administration Zolpidem Tartrate 5 mg 05/22/21 22:00 05/27/21 00:09 Zolpidem 5 Mg Tab PO 5 mg QHS PRN Administration Sleep
[2021-05-31] MEDS: FLUCONAZOLE 200 MG TAB PO SCH (13:48)
[2021-05-31] MEDS: DOLUTEGRAVIR 50 MG TAB PO SCH (13:49)
[2021-05-31] MEDS: RITONAVIR 100 MG TAB PO SCH (13:49)
[2021-05-31] MEDS: BUMETANIDE 1 MG/4 ML INJ IV SCH ×2 (13:50→22:12)
[2021-05-31] MEDS: ASCORBIC ACID 500 MG TAB PO SCH ×2 (13:51→22:14)
[2021-05-31] MEDS: MULTIVITAMINS,THER W-MINERALS TAB PO SCH (13:51)
[2021-05-31] MEDS: ZINC SULFATE 220 MG CAP PO SCH ×2 (13:51→22:13)
[2021-05-31] MEDS: SULFAMETHOXAZOLE/TRIMETHOPRIM 800/160MG DS TAB PO SCH ×2 (13:51→22:13)
[2021-05-31] MEDS: METOPROLOL SUCCINATE XL 25 MG TAB PO SCH (13:51)
[2021-05-31] MEDS: predniSONE 20 MG TAB PO SCH (13:52)
[2021-05-31] MEDS: HEPARIN 5,000 UNIT/1 ML VIAL SUB-Q SCH ×2 (13:52→22:14)
[2021-05-31] MEDS: CHOLECALCIFEROL (VIT D3) 1000 UNIT (25 mcg) TAB PO SCH (13:53)
[2021-05-31] MEDS ORDERED: CHOLESTYRAMINE (WITH SUGAR) 4 GM PACKET PO SCH (14:00)
[2021-05-31] MEDS: DARUNAVIR 800 MG TAB PO SCH (14:05)
[2021-05-31] MEDS: guaiFENesin 100 MG/5 ML ORAL LIQD PO PRN (16:08)
[2021-06-01] MEDS: hydrALAZINE 20 MG/1 ML INJ IV PRN (05:42)
[2021-06-01 05:43] VITALS: BP 143/101
[2021-06-01 06:49] LABS: Hematocrit 25.4 % (35.5-45.6); Hemoglobin 8.5 gm/dl (11.8-15.2); Mean Corpuscular HGB Conc 34 % (32-34); Mean Corpuscular Volume 93 fl (84-94); Platelet Count 230 K/mm3 (140-440); Red Blood Count 2.74 M/mm3 (3.65-5.03); Red Cell Distribution Width 20.1 % (13.2-15.2)
[2021-06-01 09:25] LABS: Basophils % (Manual) 0 % (0.0-1.8); Total Cells Counted 100
[2021-06-01] MEDS: guaiFENesin 100 MG/5 ML ORAL LIQD PO PRN (09:25)
[2021-06-01 09:26] LABS: Anisocytosis 1+; Platelet Estimate Consistent w Auto
[2021-06-01] MEDS: predniSONE 20 MG TAB PO SCH (09:27)
[2021-06-01] MEDS: RITONAVIR 100 MG TAB PO SCH (09:27)
[2021-06-01] MEDS: lamiVUDine 50 MG/5 ML ORAL LIQD PO SCH (09:27)
[2021-06-01] MEDS: METOPROLOL SUCCINATE XL 25 MG TAB PO SCH (09:27)
[2021-06-01] MEDS: FLUCONAZOLE 200 MG TAB PO SCH (09:27)
[2021-06-01] MEDS: SULFAMETHOXAZOLE/TRIMETHOPRIM 800/160MG DS TAB PO SCH (09:28)
[2021-06-01] MEDS: MULTIVITAMINS,THER W-MINERALS TAB PO SCH (09:28)
[2021-06-01] MEDS: HEPARIN 5,000 UNIT/1 ML VIAL SUB-Q SCH (09:28)
[2021-06-01] MEDS: CHOLECALCIFEROL (VIT D3) 1000 UNIT (25 mcg) TAB PO SCH (09:28)
[2021-06-01] MEDS: ZINC SULFATE 220 MG CAP PO SCH (09:28)
[2021-06-01] MEDS: DOLUTEGRAVIR 50 MG TAB PO SCH (09:28)
[2021-06-01] MEDS: BUMETANIDE 1 MG/4 ML INJ IV SCH (09:28)
[2021-06-01] MEDS: ASCORBIC ACID 500 MG TAB PO SCH (09:28)
[2021-06-01] MEDS: DARUNAVIR 800 MG TAB PO SCH (10:50)
--- NOTE | 2021-06-01 11:50 | Progress Note ---
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 by [facility] BILLIE could be related to HIV Associated Nephropathy Renal US showed CKD signs Renally dose medications Strict I&O's Subjective Date of service: 06/01/21 Principal diagnosis: ESRD Interval history: tolerated HD yesterday Objective - Vital Signs Vital signs: Vital Signs - 12hr 06/01/21 06/01/21 05:42 09:27 Pulse Rate 107 H 107 H Blood Pressure 143/101 143/101 - General Appearance General appearance: well-developed EENT: ATNC, PERRL Neck: no JVD Respiratory: Present: Decreased Breath Sounds Cardiology: regular - Lab 06/01/21 05:48 06/01/21 05:48 Most recent lab results Calcium 8.0 mg/dL (8.4-10.2) L 06/01/21 05:48 Magnesium 1.40 mg/dL (1.7-2.3) L 05/31/21 07:45 Medications & Allergies - Medications Allergies/Adverse Reactions: Allergies No Known Allergies Allergy (Verified 04/20/21 08:43) Home Medications: Home Medications Medication Instructions Recorded Confirmed Last Taken Type Multivit-Min/Folic/Vit K/Lycop 1 tab PO QDAY 04/21/21 05/13/21 3 Days Ago History [Men's Multivitamin Tablet] ~04/18/21 ALPRAZolam [Xanax TAB] 0.25 mg PO DAILY PRN #10 tablet 05/26/21 Unknown Rx Cholecalciferol Vit D3 [Vitamin D3 1,000 unit PO QDAY #30 tablet 05/26/21 Unknown Rx 1,000 UNIT TAB] Darunavir [Prezista] 800 mg PO QDAY #14 tablet 05/26/21 Unknown Rx Dolutegravir [Tivicay] 50 mg PO QDAY #14 tablet 05/26/21 Unknown Rx Fluconazole [Diflucan TAB] 200 mg PO QDAY #14 tablet 05/26/21 Unknown Rx Metoprolol Xl [Metoprolol 25 mg PO QDAY #30 tablet 05/26/21 Unknown Rx SUCCINATE ER TAB] Ritonavir 100 mg PO QDAY #14 tab 05/26/21 Unknown Rx Sodium Bicarbonate 1,300 mg PO TID #90 tablet 05/26/21 Unknown Rx Sulfamethoxazole/Trimethoprim 0.5 each PO MoWeFr #30 tablet 05/26/21 Unknown Rx [Bactrim DS TAB] lamiVUDine [Epivir Hbv] 100 mg PO QDAY #14 tab 05/26/21 Unknown Rx predniSONE 10 mg PO QDAY 21 Days #42 tab 05/26/21 Unknown Rx Active Medications: Generic Name Dose Route Start Last Admin Trade Name Freq PRN Reason Stop Dose Admin Acetaminophen 650 mg 05/10/21 11:26 05/20/21 09:00 Acetaminophen 325 Mg Tab PO 650 mg Q4H PRN Administration Pain MILD(1-3)/Fever >100.5/LANGLEY Albuterol 2.5 mg 05/10/21 11:26 05/21/21 20:05 Albuterol 2.5 Mg/3 Ml Nebu IH 2.5 mg Q4HRT PRN Administration Shortness Of Breath Alprazolam 0.25 mg 05/15/21 09:38 05/31/21 09:37 Alprazolam 0.25 Mg Tab PO 0.25 mg DAILY PRN Administration Anxiety Ascorbic Acid 500 mg 05/10/21 22:00 06/01/21 09:28 Ascorbic Acid 500 Mg Tab PO 500 mg BID SANTOS Administration Bumetanide 1 mg 05/20/21 22:00 06/01/21 09:28 Bumetanide 1 Mg/4 Ml Inj IV 1 mg BID SANTOS Administration Cholecalciferol 1,000 unit 05/21/21 12:00 06/01/21 09:28 Cholecalciferol (Vit D3) 1000 Unit (25 Mcg) Tab PO 1,000 unit QDAY SANTOS Administration Cholestyramine Resin 4 gm 05/31/21 14:00 05/31/21 13:50 Cholestyramine (With Sugar) 4 Gm Packet PO 4 gm DAILY@1400 SANTOS Administration Darunavir 800 mg 05/10/21 14:45 06/01/21 10:50 Darunavir 800 Mg Tab PO 800 mg QDAY SANTOS Administration Dolutegravir Sodium 50 mg 05/10/21 15:00 06/01/21 09:28 Dolutegravir 50 Mg Tab PO 50 mg QDAY SANTOS Administration Fluconazole 200 mg 05/19/21 19:00 06/01/21 09:27 Fluconazole 200 Mg Tab PO 06/08/21 10:01 200 mg QDAY SANTOS Administration Protocol Guaifenesin 200 mg 05/25/21 08:25 06/01/21 09:25 Guaifenesin 100 Mg/5 Ml Oral Liqd PO 200 mg Q4H PRN Administration Cough Heparin Sodium (Porcine) 5,000 unit 05/10/21 22:00 06/01/21 09:28 Heparin 5,000 Unit/1 Ml Vial SUB-Q 5,000 unit Q12HR SANTOS Administration Hydralazine HCl 10 mg 05/23/21 21:30 06/01/21 05:42 Hydralazine 20 Mg/1 Ml Inj IV 10 mg Q4HR PRN Administration Blood Pressure Sodium Chloride 100 mls @ 999 mls/hr 05/13/21 13:10 05/30/21 06:30 Nacl 0.9% IV 50 mls/hr TRENT PRN Administration Hypotension Lamivudine 100 mg 05/10/21 15:00 06/01/21 09:27 Lamivudine 50 Mg/5 Ml Oral Liqd PO 100 mg DAILY SANTOS Administration Metoprolol Succinate 50 mg 05/29/21 10:00 06/01/21 09:27 Metoprolol Succinate Xl 25 Mg Tab PO 50 mg QDAY SANTOS Administration Multivitamins/Minerals 1 each 05/11/21 10:00 06/01/21 09:28 Multivitamins,Ther W-Minerals Tab PO 1 each QDAY SANTOS Administration Ondansetron HCl 4 mg 05/10/21 11:26 05/30/21 10:53 Ondansetron 4 Mg/2 Ml Inj IV 4 mg Q8H PRN Administration Nausea And Vomiting Prednisone 20 mg 05/31/21 11:00 06/01/21 09:27 Prednisone 20 Mg Tab PO 06/04/21 10:01 20 mg QDAY SATNOS Administration Prednisone 10 mg 06/05/21 10:00 Prednisone 10 Mg Tab PO 06/09/21 10:01 QDAY SANTOS Ritonavir 100 mg 05/10/21 15:00 06/01/21 09:27 Ritonavir 100 Mg Tab PO 100 mg QDAY SANTOS Administration Sodium Chloride 10 ml 05/10/21 22:00 06/01/21 09:34 Sodium Chloride 0.9% 10 Ml Flush Syringe IV 10 ml BID SANTOS Administration Sodium Chloride 10 ml 05/10/21 11:26 05/31/21 13:52 Sodium Chloride 0.9% 10 Ml Flush Syringe IV 10 ml PRN PRN Administration LINE FLUSH Trimethoprim/Sulfamethoxazole 1 each 05/26/21 10:00 06/01/21 09:28 Sulfamethoxazole/Trimethoprim 800/160mg Ds Tab PO 06/03/21 23:59 1 each Q12HR SANTOS Administration Protocol Trimethoprim/Sulfamethoxazole 0.5 each 06/04/21 22:00 Sulfamethoxazole/Trimethoprim 800/160mg Ds Tab PO MoWeFr SANTOS Zinc Sulfate 220 mg 05/10/21 22:00 06/01/21 09:28 Zinc Sulfate 220 Mg Cap PO 220 mg BID SANTOS Administration Zolpidem Tartrate 5 mg 05/22/21 22:00 05/27/21 00:09 Zolpidem 5 Mg Tab PO 5 mg QHS PRN Administration Sleep
--- NOTE | 2021-06-01 12:08 | Discharge Summary ---
Providers - Providers Date of Admission: 05/10/21 11:26 Date of discharge: 06/01/21 Attending physician: JEVON CROFT MD 05/10/21 11:15 Consult to Physician [CONS] Urgent Comment: Consulting Provider: TYREE ALLEN Physician Instructions: Reason For Exam: acute on chronic renal infsuf, pulm edema 05/10/21 12:11 Consult to Physician [CONS] Routine Comment: Consulting Provider: RADHA MEYER Physician Instructions: Reason For Exam: covid 19 infection 05/10/21 16:06 Consult to Interventional Radiology [CONS] Stat Consulting Provider: DIANNA GASPAR Reason For Exam: [facility] Notified:: Bertha Soliman 05/11/21 04:07 Consult to Dietitian/Nutrition [CONS] Routine Physician Instructions: Reason For Exam: Reason for Consult: Malnutrition 05/11/21 15:44 Consult to Case Management [CONS] Routine Services Needed at Discharge: Other Notified:: cm Comment:: place at [facility] under Dr Allen for dialysis Additional Physician Instructions: place at [facility] under Dr Allen for dialysis 05/13/21 08:54 Physical Therapy Evaluation and Treat [CONS] Stat Comment: Reason For Exam: eval and treat 05/31/21 14:15 Physical Therapy Evaluation and Treat [CONS] Stat Comment: Reason For Exam: eval and treat Primary care physician: [facility] Hospitalization Reason for admission: shortness of breath, generalized weakness Condition: Stable Hospital course: 40-year-old male who was recently hospitalized and discharged earlier this month with a new diagnosis of HIV and suspected AIDS with associated renal dysfunction. Patient was also noted to have a diagnosis of COVID-19 pneumonia during that admission but not hypoxic at that time. Patient was recommended for outpatient follow-up with [facility] department. 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 HIV associated nephropathy Accelerated hypertension Acute renal failure. COVID-19. Patient initially tested + 04/24/2021 but not a candidate for remdesivir. Acute hypoxic respiratory failure. Etiology secondary to Covid versus renal failure versus PCP pneumonia. Persistent sinus tachycardia 05/11/2021. ID has been consulted and we will follow up HIV viral load, CD4 count and genotype. Follow-up LDH 1 3 beta D glucan. ID started Mepron to cover P MARTINEZ and avoiding Bactrim due to renal failure. We started steroids given the new hypoxia. ID also initiated ART with lamivudine, darunavir plus ritonavir and dolutegravir given the possibility of HIVAN. Consider pulmonary consultation. Nephrology following. Renal ultrasound shows signs of CKD. Nephrology to discuss hemodialysis initiation. Continue strict I's and O's daily and monitor renal function closely 05/12/2021. Patient is s/p placement of a right internal jugular tunneled cuffed hemodialysis catheter and initiation of hemodialysis on 05/11/2021. Patient is also undergo further hemodialysis today. CM consult to place patient at [facility]. We will follow up HIV viral load, CD4 count and genotype. Follow-up LDH 1 3 beta D glucan. ID started Mepron to cover P MARTINEZ and avoiding Bactrim due to renal failure. ID also initiated ART with lamivudine, darunavir plus ritonavir and dolutegravir given the possibility of HIVAN. Continue steroids given the hypoxia. Respiratory status has significantly improved after hemodialysis. I believe volume overload was the most significantly contributing factor/etiology. Follow-up serial chest x-ray. Patient currently with 2 L nasal cannula satting at 99% 05/13/2021. Continue hemodialysis per nephrology recommendations. Await outpatient arrangements for hemodialysis unit. We will follow up HIV viral load, CD4 count and genotype. Follow-up LDH 1 3 beta D glucan. ID started Mepron to cover P MARTINEZ and avoiding Bactrim due to renal failure. ID also initiated ART with lamivudine, darunavir plus ritonavir and dolutegravir given the possibility of HIVAN. Continue steroids given the hypoxia and change from Solu-Medrol IV to dexamethasone. Procalcitonin level was elevated at 6. We will continue IV antibiotics per ID recommendations 05/14/2021. Continue hemodialysis per nephrology recommendations. Await outpatient arrangements for hemodialysis unit. We will follow up HIV viral load, CD4 count and genotype. Follow-up LDH 1 3 beta D glucan. ID started Mepron to cover P MARTINEZ and avoiding Bactrim due to renal failure. ID also initiated ART with lamivudine, darunavir plus ritonavir and dolutegravir given the possibility of HIVAN. Continue dexamethasone. Patient to follow-up with health department in early May. Case management follow-up with regards to home ART before follow-up with the health department 05/15/2021. Continue hemodialysis per nephrology recommendations. Await out patient arrangements for hemodialysis unit. Patient wants anxiety medication prior to dialysis. We will start Xanax 0.25 mg as needed. Continue lamivudine, darunavir plus ritonavir and dolutegravir given the possibility of HIVAN. Continue dexamethasone. Patient to follow-up with health department in early May. Case management follow-up with regards to home ART before follow-up with the health department 05/16/2021. Continue hemodialysis per nephrology recommendations. Await outpatient arrangements for hemodialysis unit. Renal US showed CKD signs. Strict I&O's daily. Obtain daily weights. Continue Xanax prior to hemodialysis for anxiety. Continue lamivudine, darunavir plus ritonavir and dolutegravir given the possibility of HIVAN. Continue dexamethasone. Patient to follow-up with health department in early May. Patient with elevated diastolic BP greater than 100. We will start Procardia 30 mg twice daily. 05/17/2021. Patient to be initiated on MWF hemodialysis schedule. Patient requesting Xanax for anxiety prior to hemodialysis session. Await outpatient arrangements for hemodialysis unit per case management. Renal ultrasound revealed signs of chronic kidney disease. Continue strict I&O's daily. Obtain daily weights. Continue lamivudine, darunavir plus ritonavir and dolutegravir given the possibility of HIVAN. Continue dexamethasone. Patient to follow-up with health department in early May. Patient's BP much better controlled with the addition of Procardia. 05/18: Hemodialysis was discontinued yesterday after 1 hour if patient request as he was feeling weak with hypotension. BP remains low to 80s. Given NS bolus management this morning. Procardia discontinued. Bumex is on hold. Excellent urine. Still feeling weak. Remains anxious. Asking to be sedated during dialysis. CXR ordered daily Dr. Graves shows mild localized subcutaneous emphysema and right-sided neck pain currently dialysis catheter is placed. A CT chest showed diabetes mellitus with emphysema-like cough. Vascular surgery is addressing this. Sinus tachycardia stable. On room air without acute respite distress at rest. Discussed with the patient, nursing staff and vascular surgery. 05/19:Patient is feeling much better after undergoing hemodialysis for 3 hours today.Breathing much better. Mild subcutis emphysema in the right supraclavicular fossa seems stable. This is assisted by pulmonary in consultation and reevaluation by today. No acute intervention required, expected to resolve by itself. Looks more comfortable and less anxious. Remains on 3 L of O2. 05/20: No acute events. Remains on 3 L O2. Pneumomediastinum and subcutaneous emphysema stable. Bactrim changed from p.o. to IV. Sinus tach worse today and received Lopressor IV x1 dose. Discussed with ID. 05/21: No acute events, stable, awaiting outpatient dialysis arrangements for discharge. 05/22: Chronic anxiety, better. Since tachycardia stable. Remains on 2 to 3 days of O2. Stable for discharge pending outpatient dialysis arrangements. Discussed with CM. 05/23: Remains stable for discharge pending outpatient dialysis arrangements by CM. 05/24: Remains stable for discharge pending outpatient dialysis treatments with CM. 05/25: Remains stable for discharge pending outpatient dialysis treatments with CM. Continue IV Bactrim per ID recommendations to complete a total of 21 days. Patient should also have tapering steroids over the next 21 days. ART was started on 05/10/2021. Continue fluconazole 200 mg every 24 hours x3 weeks 05/26: Continue Bactrim, steroids, ART and fluconazole. Patient with plans to discharge when outpatient hemodialysis chair available. 05/27: Patient with persistent sinus tachycardia. Consider cardiology consultation. Check echocardiogram. Continue metoprolol 25 mg p.o. daily for now. Continue Bactrim, steroids, ART and fluconazole. Patient with plans to discharge when outpatient hemodialysis chair available. 05/28: Follow-up echocardiogram results. Increase metoprolol to 50 mg p.o. daily. Continue Bactrim, steroids, ART and fluconazole. Patient with plans to discharge when outpatient hemodialysis chair available. 05/29: Left ventricle size and systolic function is normal. Mild diastolic dysfunction. LVEF 50-55%. Increase metoprolol to 50 mg p.o. daily. Continue Bactrim, steroids, ART and fluconazole. Patient with plans to discharge when outpatient hemodialysis chair available. 05/30: Continue metoprolol to 50 mg p.o. daily. Continue Bactrim, steroids, ART and fluconazole. Patient with plans to discharge when outpatient hemodialysis chair available. 05/31: Heart rate better with increased metoprolol. Continue Bactrim, steroids, ART and fluconazole. Patient with plans to discharge when outpatient hem odialysis chair available. Patient is s/p 1 unit PRBCs. Check Hemoccult of stool. 06/01: VSS. Of oxygen. Plan to discharge home today with ART x 2 week supply., bactrim x 21 total days, fluconazole x 3 weeks total. Will also go home with [facility] pt and rolling walker and wheel chair. HIV clinic ([facility] clinic @ [facility] or [place]). He was advised to follow up with [facility] for dialysis care. Disposition: 01 HOME / SELF CARE / HOMELESS Final Discharge Diagnosis (Prints w/discharge instructions): HIV/AIDS, acute hypoxic rep failure, PJP pneumonia, acute renal failure Time spent for discharge: 35 Core Measure Documentation - Palliative Care Palliative Care/ Comfort Measures: Not Applicable - Core Measures Any of the following diagnoses?: none Exam - Physical Exam Narrative exam: General appearance: Present: no acute distress, well-nourished - EENT Eyes: Present: PERRL, EOM intact ENT: hearing intact, clear oral mucosa, dentition normal - Neck Neck: Present: supple, normal ROM - Respiratory Respiratory effort: normal Respiratory: bilateral: CTA - Cardiovascular Rhythm: regular Heart Sounds: Present: S1 & S2. Absent: gallop, rub - Extremities Extremities: no ischemia, No edema, Full ROM - Abdominal General gastrointestinal: soft, non-tender, non-distended, normal bowel sounds - Integumentary Integumentary: Present: clear, warm, dry - Neurologic Neurologic: CNII-XII intact, moves all extremities - Constitutional Vitals: Temp Pulse Resp BP Pulse Ox 98.9 F 107 H 20 143/101 93 05/31/21 13:43 06/01/21 09:27 05/31/21 22:09 06/01/21 09:27 05/31/21 22:09 Plan Activity: advance as tolerated Weight Bearing Status: Weight Bear as Tolerated Durable Medical Equipment Needed Upon Discharge: Walker-Rolling, Wheelchair Follow up with: HARPER SNOW MD [Primary Care Provider] - 3-5 Days SATHYA ZELAYA MD [Staff Physician] - 7 Days Prescriptions: Sulfamethoxazole/Trimethoprim [Bactrim DS TAB] 0.5 each PO MoWeFr #30 tablet Fluconazole [Diflucan TAB] 200 mg PO QDAY #14 tablet lamiVUDine [Epivir Hbv] 100 mg PO QDAY #14 tab Metoprolol Xl [Metoprolol SUCCINATE ER TAB] 25 mg PO QDAY #30 tablet predniSONE 10 mg PO QDAY 21 Days #42 tab Darunavir [Prezista] 800 mg PO QDAY #14 tablet Ritonavir 100 mg PO QDAY #14 tab Sodium Bicarbonate 1,300 mg PO TID #90 tablet Dolutegravir [Tivicay] 50 mg PO QDAY #14 tablet Cholecalciferol Vit D3 [Vitamin D3 1,000 UNIT TAB] 1,000 unit PO QDAY #30 tablet ALPRAZolam [Xanax TAB] 0.25 mg PO DAILY PRN #10 tablet PRN Reason: Anxiety Other Discharge Orders: Wheelchair (Amb) Location: None Selected
[2021-06-01] MEDS: ALPRAZolam 0.25 MG TAB PO PRN (12:31)
[2021-06-04] MEDS ORDERED: SULFAMETHOXAZOLE/TRIMETHOPRIM 800/160MG DS TAB PO SCH (22:00)
[2021-06-05] MEDS ORDERED: predniSONE 10 MG TAB PO SCH (10:00)
== END 2021-06-01 13:39 | disposition home or self-care (01) | DRG 974 ==
LOC: ED 08:35 → 3A 11:26
PROVIDERS: ADMIT Internal Medicine; ATTEND Internal Medicine
PROC: 0JH63XZ Insertion of Tunneled Vascular Access Device into Chest Subcutaneous Tissue and Fascia, Percutaneous Approach (ICD-10-PCS; principal; 2021-05-11)
PROC: 02H633Z Insertion of Infusion Device into Right Atrium, Percutaneous Approach (ICD-10-PCS; 2021-05-11)
PROC: B5181ZA Fluoroscopy of Superior Vena Cava using Low Osmolar Contrast, Guidance (ICD-10-PCS; 2021-05-11)
PROC: B548ZZA Ultrasonography of Superior Vena Cava, Guidance (ICD-10-PCS; 2021-05-11)
PROC: 5A1D70Z Performance of Urinary Filtration, Intermittent, Less than 6 Hours Per Day (ICD-10-PCS; 2021-05-11)
PROC: 5A1D70Z Performance of Urinary Filtration, Intermittent, Less than 6 Hours Per Day (ICD-10-PCS; 2021-05-12)
PROC: 5A1D70Z Performance of Urinary Filtration, Intermittent, Less than 6 Hours Per Day (ICD-10-PCS; 2021-05-13)
PROC: 5A1D70Z Performance of Urinary Filtration, Intermittent, Less than 6 Hours Per Day (ICD-10-PCS; 2021-05-14)
PROC: 5A1D70Z Performance of Urinary Filtration, Intermittent, Less than 6 Hours Per Day (ICD-10-PCS; 2021-05-17)
PROC: 5A1D70Z Performance of Urinary Filtration, Intermittent, Less than 6 Hours Per Day (ICD-10-PCS; 2021-05-19)
PROC: 5A1D70Z Performance of Urinary Filtration, Intermittent, Less than 6 Hours Per Day (ICD-10-PCS; 2021-05-21)
PROC: 5A1D70Z Performance of Urinary Filtration, Intermittent, Less than 6 Hours Per Day (ICD-10-PCS; 2021-05-24)
PROC: 5A1D70Z Performance of Urinary Filtration, Intermittent, Less than 6 Hours Per Day (ICD-10-PCS; 2021-05-26)
PROC: 5A1D70Z Performance of Urinary Filtration, Intermittent, Less than 6 Hours Per Day (ICD-10-PCS; 2021-05-28)
PROC: 30233N1 Transfusion of Nonautologous Red Blood Cells into Peripheral Vein, Percutaneous Approach (ICD-10-PCS; 2021-05-30)
PROC: 5A1D70Z Performance of Urinary Filtration, Intermittent, Less than 6 Hours Per Day (ICD-10-PCS; 2021-05-31)
DX: A41.9 Sepsis, unspecified organism (principal); J96.01 Acute respiratory failure with hypoxia; B20 Human immunodeficiency virus [HIV] disease; U07.1 COVID-19; N18.6 End stage renal disease; J81.0 Acute pulmonary edema; J12.82 Pneumonia due to coronavirus disease 2019; E44.0 Moderate protein-calorie malnutrition; Z68.1 Body mass index [BMI] 19.9 or less, adult; B37.81 Candidal esophagitis; D64.9 Anemia, unspecified; J98.2 Interstitial emphysema; F41.9 Anxiety disorder, unspecified; E87.6 Hypokalemia; Z82.49 Family history of ischemic heart disease and other diseases of the circulatory system
CPT/HCPCS: 36415; 36558; 71045; 71250; 71260; 77001; 80048; 80053; 80074; 81001; 82024; 82140; 82270; 82550; 82553; 82728; 82947; 83615; 83735; 83880; 84132; 84145; 84439; 84443; 84484; 85007; 85014; 85018; 85025; 85027; 85379; 86140; 86403; 86850; 86900; 86901; 86920; 87040; 87045; 87493; 87536; 87901; 93005; 93010; 93306; 94640; 94760; G0378; J3260; J3490; J9280; Q0162; C1750; C8929; J0360; J0456; J0692; J0696; J1100; J1170; J1644; J1940; J2250; J2270; J2405; J2920; J3010; J3370; J3480; J7030; J7040; J7050; J7512; P9016; Q9967; U0003

== ENCOUNTER 2021-06-02 11:25 | Emergency (ER) | payer SELFPAY ==
[2021-06-02 11:48] VITALS: BP 172/113
[2021-06-02 12:42] LABS: Hematocrit 28.4 % (35.5-45.6); Hemoglobin 9.2 gm/dl (11.8-15.2); Mean Corpuscular HGB Conc 33 % (32-34); Mean Corpuscular Volume 94 fl (84-94); Platelet Count 242 K/mm3 (140-440); Red Blood Count 3.01 M/mm3 (3.65-5.03)
[2021-06-02 12:51] LABS: Red Cell Distribution Width 21.2 % (13.2-15.2)
[2021-06-02 13:06] LABS: Alanine Aminotransferase 24 units/L (7-56); BUN/Creatinine Ratio 13; Blood Urea Nitrogen 39 mg/dL (9-20); Calcium 9.1 mg/dL (8.4-10.2); Hemolysis Index 2
--- NOTE | 2021-06-02 14:35 | Emergency Department Report ---
ED General Adult HPI - General Chief complaint: Weakness Stated complaint: DIALYSIS Time Seen by Provider: 06/02/21 14:15 Source: patient Mode of arrival: Wheelchair Limitations: No Limitations - History of Present Illness Initial comments: Patient presents stating that he needs to be dialyzed. He was dialyzed Monday. He was discharged from this hospital on Monday. He was told to follow-up at [facility] for dialysis today. He states that "we messed up and said that he lived in [facility]." Patient states that he lives in [facility] [place]. He showed up at [facility] and was turned around because he [place] not [place] and they were not going to dialyze him. He came here under the impression that he needs dialysis. He has no complaints. He is not having trouble breathing. He does not feel dizzy or lightheaded. - Related Data Home Medications Medication Instructions Recorded Confirmed Last Taken Multivit-Min/Folic/Vit K/Lycop 1 tab PO QDAY 04/21/21 05/13/21 3 Days Ago [Men's Multivitamin Tablet] ~04/18/21 Previous Rx's Medication Instructions Recorded Last Taken Type ALPRAZolam [Xanax TAB] 0.25 mg PO DAILY PRN #10 tablet 05/26/21 Unknown Rx Cholecalciferol Vit D3 [Vitamin D3 1,000 unit PO QDAY #30 tablet 05/26/21 Unknown Rx 1,000 UNIT TAB] Darunavir [Prezista] 800 mg PO QDAY #14 tablet 05/26/21 Unknown Rx Dolutegravir [Tivicay] 50 mg PO QDAY #14 tablet 05/26/21 Unknown Rx Fluconazole [Diflucan TAB] 200 mg PO QDAY #14 tablet 05/26/21 Unknown Rx Metoprolol Xl [Metoprolol 25 mg PO QDAY #30 tablet 05/26/21 Unknown Rx SUCCINATE ER TAB] Ritonavir 100 mg PO QDAY #14 tab 05/26/21 Unknown Rx Sodium Bicarbonate 1,300 mg PO TID #90 tablet 05/26/21 Unknown Rx Sulfamethoxazole/Trimethoprim 0.5 each PO MoWeFr #30 tablet 05/26/21 Unknown Rx [Bactrim DS TAB] lamiVUDine [Epivir Hbv] 100 mg PO QDAY #14 tab 05/26/21 Unknown Rx predniSONE 10 mg PO QDAY 21 Days #42 tab 05/26/21 Unknown Rx Allergies Allergy/AdvReac Type Severity Reaction Status Date / Time No Known Allergies Allergy Verified 04/20/21 08:43 ED Review of Systems ROS: Stated complaint: DIALYSIS Other details as noted in HPI Comment: All other systems reviewed and negative Constitutional: fever Respiratory: denies: cough Cardiovascular: denies: chest pain Gastrointestinal: denies: abdominal pain Genitourinary: as per HPI Neurological: denies: headache Hematological/Lymphatic: denies: easy bruising ED Past Medical Hx - Past Medical History Previous Medical History?: Yes Hx Hypertension: Yes Hx Renal Disease: Yes (On dialysis) Hx HIV: Yes - Surgical History Past Surgical History?: No - Family History Family history: hypertension - Social History Smoking Status: Former Smoker - Medications Home Medications: Home Medications Medication Instructions Recorded Confirmed Last Taken Type Multivit-Min/Folic/Vit K/Lycop 1 tab PO QDAY 04/21/21 05/13/21 3 Days Ago History [Men's Multivitamin Tablet] ~04/18/21 ALPRAZolam [Xanax TAB] 0.25 mg PO DAILY PRN #10 tablet 05/26/21 Unknown Rx Cholecalciferol Vit D3 [Vitamin D3 1,000 unit PO QDAY #30 tablet 05/26/21 Unknown Rx 1,000 UNIT TAB] Darunavir [Prezista] 800 mg PO QDAY #14 tablet 05/26/21 Unknown Rx Dolutegravir [Tivicay] 50 mg PO QDAY #14 tablet 05/26/21 Unknown Rx Fluconazole [Diflucan TAB] 200 mg PO QDAY #14 tablet 05/26/21 Unknown Rx Metoprolol Xl [Metoprolol 25 mg PO QDAY #30 tablet 05/26/21 Unknown Rx SUCCINATE ER TAB] Ritonavir 100 mg PO QDAY #14 tab 05/26/21 Unknown Rx Sodium Bicarbonate 1,300 mg PO TID #90 tablet 05/26/21 Unknown Rx Sulfamethoxazole/Trimethoprim 0.5 each PO MoWeFr #30 tablet 05/26/21 Unknown Rx [Bactrim DS TAB] lamiVUDine [Epivir Hbv] 100 mg PO QDAY #14 tab 05/26/21 Unknown Rx predniSONE 10 mg PO QDAY 21 Days #42 tab 05/26/21 Unknown Rx ED Physical Exam - General Limitations: No Limitations, Other (Pulse ox noted and normal) General appearance: alert, in no apparent distress - Head Head exam: Present: atraumatic, normocephalic - Eye Eye exam: Present: normal appearance, EOMI. Absent: scleral icterus - ENT ENT exam: Present: normal external ear exam - Neck Neck exam: Present: normal inspection - Respiratory Respiratory exam: Absent: respiratory distress - Cardiovascular Cardiovascular Exam: Absent: JVD - Extremities Exam Extremities exam: Present: normal capillary refill - Neurological Exam Neurological exam: Present: alert, oriented X3, CN II-XII intact. Absent: motor sensory deficit - Psychiatric Psychiatric exam: Present: normal affect, normal mood - Skin Skin exam: Present: warm, dry ED Course Vital Signs 06/02/21 11:45 Temperature 98 F Pulse Rate 109 H Respiratory 16 Rate Blood Pressure 172/113 [Left] O2 Sat by Pulse 97 Oximetry - Reevaluation(s) Reevaluation #1: 06/02/21 14:49 Labs are noted. Patient was discharged. ED Medical Decision Making - Lab Data Result diagrams: 06/02/21 12:24 06/02/21 12:24 - Medical Decision Making Patient presents with the report that he needs dialysis. He actually does not. He does not have evidence of volume overload. He is not hyperkalemic. In fact he is hypokalemic and a dose of oral potassium have been ordered. Patient has no evidence of pulmonary edema or shortness of breath. I have discharged him. We will try to get him in the right facility and location for ongoing dialysis. He certainly does not need admission at this time. Patient is comfortable going home and is frustrated that this is happened to him. Critical Care Time: No Critical care attestation.: If time is entered above; I have spent that time in minutes in the direct care of this critically ill patient, excluding procedure time. ED Disposition Clinical Impression: ESRD on dialysis Disposition: HOME / SELF CARE / HOMELESS Is pt being admited?: No Condition: Stable Instructions: Dialysis Additional Instructions: RETURN FOR PROBLEMS. SEE YOUR DOCTOR FOR RECHECK. RETURN FOR PROBLEMS. Referrals: PRIMARY CARE, [Referring] - 3-5 Days SATHYA ZELAYA MD [Staff Physician] - 3-5 Days
[2021-06-02] MEDS ORDERED: POTASSIUM CHLORIDE ER 20 MEQ TAB PO ONE (14:50)
== END 2021-06-02 15:07 | disposition home or self-care (01) ==
LOC: ED 11:25
DX: Z99.2 Dependence on renal dialysis (principal); I12.9 Hypertensive chronic kidney disease with stage 1 through stage 4 chronic kidney disease, or unspecified chronic kidney disease; N18.6 End stage renal disease; Z87.891 Personal history of nicotine dependence
CPT/HCPCS: 36415; 80053; 85027; 99283

== ENCOUNTER 2021-06-04 06:36 | Inpatient (IN) | payer SELFPAY ==
--- NOTE | 2021-06-04 08:04 | Emergency Department Report ---
ED General Adult HPI - General Chief complaint: Weakness Stated complaint: DIALYSIS Time Seen by Provider: 06/04/21 07:53 Source: patient Mode of arrival: Wheelchair Limitations: No Limitations - History of Present Illness Initial comments: Patient presents with concerns for missed dialysis. He believes he needs dialysis. He has had shortness of breath. He was diagnosed with HIV and renal failure recently. He was placed on dialysis. He has not been dialyzed in at least 5 days. He states that he did not have insurance. He thought that he was being set up for facility but that never transpired. I had seen this gentleman a couple of days ago. He had been referred to a [facility] although he does not have a [facility] address. Patient does not have insurance. He has applied for Medicaid. Until Medicaid has been approved, apparently no dialysis center will accept him or give him a chair. Patient has been relegated to coming back here or to another emergency department when he believes he needs to be dialyzed. Today, he came back here because he believes he needs to be dialyzed. He does report shortness of breath without cough or chest pain. There is no vomiting. - Related Data Home Medications Medication Instructions Recorded Confirmed Last Taken Multivit-Min/Folic/Vit K/Lycop 1 tab PO QDAY 04/21/21 05/13/21 3 Days Ago [Men's Multivitamin Tablet] ~04/18/21 Previous Rx's Medication Instructions Recorded Last Taken Type ALPRAZolam [Xanax TAB] 0.25 mg PO DAILY PRN #10 tablet 05/26/21 Unknown Rx Cholecalciferol Vit D3 [Vitamin D3 1,000 unit PO QDAY #30 tablet 05/26/21 Unknown Rx 1,000 UNIT TAB] Darunavir [Prezista] 800 mg PO QDAY #14 tablet 05/26/21 Unknown Rx Dolutegravir [Tivicay] 50 mg PO QDAY #14 tablet 05/26/21 Unknown Rx Fluconazole [Diflucan TAB] 200 mg PO QDAY #14 tablet 05/26/21 Unknown Rx Metoprolol Xl [Metoprolol 25 mg PO QDAY #30 tablet 05/26/21 Unknown Rx SUCCINATE ER TAB] Ritonavir 100 mg PO QDAY #14 tab 05/26/21 Unknown Rx Sodium Bicarbonate 1,300 mg PO TID #90 tablet 05/26/21 Unknown Rx Sulfamethoxazole/Trimethoprim 0.5 each PO MoWeFr #30 tablet 05/26/21 Unknown Rx [Bactrim DS TAB] lamiVUDine [Epivir Hbv] 100 mg PO QDAY #14 tab 05/26/21 Unknown Rx predniSONE 10 mg PO QDAY 21 Days #42 tab 05/26/21 Unknown Rx Allergies Allergy/AdvReac Type Severity Reaction Status Date / Time No Known Allergies Allergy Verified 04/20/21 08:43 ED Review of Systems ROS: Stated complaint: DIALYSIS Other details as noted in HPI Comment: All other systems reviewed and negative Constitutional: denies: fever Eyes: denies: vision change ENT: denies: throat pain Respiratory: see HPI Cardiovascular: denies: chest pain Endocrine: denies: unexplained weight loss Gastrointestinal: denies: abdominal pain Musculoskeletal: denies: back pain Skin: denies: rash Neurological: denies: headache Hematological/Lymphatic: denies: easy bruising ED Past Medical Hx - Past Medical History Previous Medical History?: Yes Hx Hypertension: Yes Hx Renal Disease: Yes (On dialysis) Hx HIV: Yes - Surgical History Past Surgical History?: No - Family History Family history: hypertension - Social History Smoking Status: Former Smoker - Medications Home Medications: Home Medications Medication Instructions Recorded Confirmed Last Taken Type Multivit-Min/Folic/Vit K/Lycop 1 tab PO QDAY 04/21/21 05/13/21 3 Days Ago Hi story [Men's Multivitamin Tablet] ~04/18/21 ALPRAZolam [Xanax TAB] 0.25 mg PO DAILY PRN #10 tablet 05/26/21 Unknown Rx Cholecalciferol Vit D3 [Vitamin D3 1,000 unit PO QDAY #30 tablet 05/26/21 Unknown Rx 1,000 UNIT TAB] Darunavir [Prezista] 800 mg PO QDAY #14 tablet 05/26/21 Unknown Rx Dolutegravir [Tivicay] 50 mg PO QDAY #14 tablet 05/26/21 Unknown Rx Fluconazole [Diflucan TAB] 200 mg PO QDAY #14 tablet 05/26/21 Unknown Rx Metoprolol Xl [Metoprolol 25 mg PO QDAY #30 tablet 05/26/21 Unknown Rx SUCCINATE ER TAB] Ritonavir 100 mg PO QDAY #14 tab 05/26/21 Unknown Rx Sodium Bicarbonate 1,300 mg PO TID #90 tablet 05/26/21 Unknown Rx Sulfamethoxazole/Trimethoprim 0.5 each PO MoWeFr #30 tablet 05/26/21 Unknown Rx [Bactrim DS TAB] lamiVUDine [Epivir Hbv] 100 mg PO QDAY #14 tab 05/26/21 Unknown Rx predniSONE 10 mg PO QDAY 21 Days #42 tab 05/26/21 Unknown Rx ED Physical Exam - General Limitations: No Limitations, Other (Pulse ox noted and normal) General appearance: alert, in distress (Mild) - Head Head exam: Present: atraumatic, normocephalic - Eye Eye exam: Present: normal appearance, PERRL, EOMI - ENT ENT exam: Present: normal orophraynx, normal external ear exam - Neck Neck exam: Present: other (Subcutaneous emphysema is noted). Absent: meningismus - Respiratory Respiratory exam: Present: normal lung sounds bilaterally, respiratory distress (Mild) - Cardiovascular Cardiovascular Exam: Present: normal rhythm, tachycardia - GI/Abdominal GI/Abdominal exam: Present: soft. Absent: distended - Extremities Exam Extremities exam: Present: normal capillary refill - Back Exam Back exam: Absent: CVA tenderness (R), CVA tenderness (L) - Neurological Exam Neurological exam: Present: alert, oriented X3, CN II-XII intact - Psychiatric Psychiatric exam: Present: normal affect, normal mood - Skin Skin exam: Present: warm, dry ED Course Vital Signs 06/04/21 07:24 Temperature 98.1 F Pulse Rate 117 H Respiratory 16 Rate Blood Pressure 180/118 [Left] O2 Sat by Pulse 98 Oximetry - Reevaluation(s) Reevaluation #1: 06/04/21 08:04 Labs, EKG, XR ordered. Old records noted. Reevaluation #2: 06/04/21 11:27 X-ray was noted. Case was discussed with the hospitalist and with renal. We will proceed with admission. Labs have been reviewed. ED Medical Decision Making - Lab Data Result diagrams: 06/04/21 09:12 Rhythm strip: Normal sinus rhythm without ectopy per monitor observe 10 seconds. - Radiology Data Radiology results: report reviewed - Medical Decision Making Patient presents with shortness of breath and need for dialysis. He does have chronic renal failure has not been dialyzed. He does have worsening renal dysfunction. He has evidence of volume overload. In addition, patient does have subcutaneous emphysema on x-ray of uncertain etiology. However this is progressively worsening. Patient will be admitted for ongoing treatment. Hospitalist has been made aware as has nephrology. They are planning on consulting Dr. Graves. Critical Care Time: No Critical care attestation.: If time is entered above; I have spent that time in minutes in the direct care of this critically ill patient, excluding procedure time. ED Disposition Clinical Impression: ESRD needing dialysis, Subcutaneous emphysema Disposition: ADMITTED INPATIENT Is pt being admited?: Yes Condition: Stable Referrals: SATHYA ZELAYA MD [Primary Care Provider] - 3-5 Days
--- NOTE | 2021-06-04 08:40 | XRay Report ---
CHEST 2 VIEWS INDICATION: Shortness of breath. COMPARISON: 05/18/2021 FINDINGS: Support devices: Dialysis catheter unchanged. Heart: Stable. Lungs/Pleura: Persistent bilateral opacity diffusely with mild improvement. Increasing deep cervica l and subcutaneous air. IMPRESSION: 1. Mild improving diffuse opacity. 2. Increasing deep cervical and subcutaneous air. Signer Name: Jose Cruz Contreras MD Signed: 06/04/2021 8:36 AM Workstation Name: [id number]
[2021-06-04 10:21] LABS: BUN/Creatinine Ratio 17; Blood Urea Nitrogen 43 mg/dL (9-20); Calcium 9.3 mg/dL (8.4-10.2); Hemolysis Index 2
[2021-06-04] MEDS ORDERED: ALPRAZolam 0.25 MG TAB PO PRN (15:05)
--- NOTE | 2021-06-04 15:05 | History and Physical Report ---
History of Present Illness Date of examination: 06/04/21 History of present illness: Patient presents with concerns for missed dialysis. He believes he needs dialysis. He has had shortness of breath. He was diagnosed with HIV and renal failure recently. He was placed on dialysis. He has not been dialyzed in at least 5 days. He states that he did not have insurance. He thought that he was being set up for facility but that never transpired. I had seen this gentleman a couple of days ago. He had been referred to a [facility] although he does not have a [facility] address. Patient does not have insurance. He has applied for Medicaid. Until Medicaid has been approved, apparently no dialysis center will accept him or give him a chair. Patient has been relegated to coming back here or to another emergency department when he believes he needs to be dialyzed. Today, he came back here because he believes he needs to be dialyzed. He does report shortness of breath without cough or chest pain. There is no vomiting. - Related Data Home Medications Medication Instructions Recorded Confirmed Last Taken Multivit-Min/Folic/Vit K/Lycop 1 tab PO QDAY 04/21/21 05/13/21 3 Days Ago [Men's Multivitamin Tablet] ~04/18/21 Previous Rx's Medication Instructions Recorded Last Taken Type ALPRAZolam [Xanax TAB] 0.25 mg PO DAILY PRN #10 tablet 05/26/21 Unknown Rx Cholecalciferol Vit D3 [Vitamin D3 1,000 unit PO QDAY #30 tablet 05/26/21 Unknown Rx 1,000 UNIT TAB] Darunavir [Prezista] 800 mg PO QDAY #14 tablet 05/26/21 Unknown Rx Dolutegravir [Tivicay] 50 mg PO QDAY #14 tablet 05/26/21 Unknown Rx Fluconazole [Diflucan TAB] 200 mg PO QDAY #14 tablet 05/26/21 Unknown Rx Metoprolol Xl [Metoprolol 25 mg PO QDAY #30 tablet 05/26/21 Unknown Rx SUCCINATE ER TAB] Ritonavir 100 mg PO QDAY #14 tab 05/26/21 Unknown Rx Sodium Bicarbonate 1,300 mg PO TID #90 tablet 05/26/21 Unknown Rx Sulfamethoxazole/Trimethoprim 0.5 each PO MoWeFr #30 tablet 05/26/21 Unknown Rx [Bactrim DS TAB] lamiVUDine [Epivir Hbv] 100 mg PO QDAY #14 tab 05/26/21 Unknown Rx predniSONE 10 mg PO QDAY 21 Days #42 tab 05/26/21 Unknown Rx Allergies Allergy/AdvReac Type Severity Reaction Status Date / Time No Known Allergies Allergy Verified 04/20/21 08:43 ED Review of Systems ROS: Stated complaint: DIALYSIS Other details as noted in HPI Comment: All other systems reviewed and negative Constitutional: denies: fever Eyes: denies: vision change ENT: denies: throat pain Respiratory: see HPI Cardiovascular: denies: chest pain Endocrine: denies: unexplained weight loss Gastrointestinal: denies: abdominal pain Musculoskeletal: denies: back pain Skin: denies: rash Neurological: denies: headache Hematological/Lymphatic: denies: easy bruising ED Past Medical Hx - Past Medical History Previous Medical History?: Yes Hx Hypertension: Yes Hx Renal Disease: Yes (On dialysis) Hx HIV: Yes - Surgical History Past Surgical History?: No - Family History Family history: hypertension - Social History Smoking Status: Former Smoker - Medications Home Medications: Home Medications Medication Instructions Recorded Confirmed Last Taken Type Multivit-Min/Folic/Vit K/Lycop 1 tab PO QDAY 04/21/21 05/13/21 3 Days Ago History [Men's Multivitamin Tablet] ~04/18/21 ALPRAZolam [Xanax TAB] 0.25 mg PO DAILY PRN #10 tablet 05/26/21 Unknown Rx Cholecalciferol Vit D3 [Vitamin D3 1,000 unit PO QDAY #30 tablet 05/26/21 Unknown Rx 1,000 UNIT TAB] Darunavir [Prezista] 800 mg PO QDAY #14 tablet 05/26/21 Unknown Rx Dolutegravir [Tivicay] 50 mg PO QDAY #14 tablet 05/26/21 Unknown Rx Fluconazole [Diflucan TAB] 200 mg PO QDAY #14 tablet 05/26/21 Unknown Rx Metoprolol Xl [Metoprolol 25 mg PO QDAY #30 tablet 05/26/21 Unknown Rx SUCCINATE ER TAB] Ritonavir 100 mg PO QDAY #14 tab 05/26/21 Unknown Rx Sodium Bicarbonate 1,300 mg PO TID #90 tablet 05/26/21 Unknown Rx Sulfamethoxazole/Trimethoprim 0.5 each PO MoWeFr #30 tablet 05/26/21 Unknown Rx [Bactrim DS TAB] lamiVUDine [Epivir Hbv] 100 mg PO QDAY #14 tab 05/26/21 Unknown Rx predniSONE 10 mg PO QDAY 21 Days #42 tab 05/26/21 Unknown Rx Medications and Allergies Allergies Allergy/AdvReac Type Severity Reaction Status Date / Time No Known Allergies Allergy Verified 04/20/21 08:43 Home Medications Medication Instructions Recorded Confirmed Last Taken Type Multivit-Min/Folic/Vit K/Lycop 1 tab PO QDAY 04/21/21 05/13/21 3 Days Ago History [Men's Multivitamin Tablet] ~04/18/21 ALPRAZolam [Xanax TAB] 0.25 mg PO DAILY PRN #10 tablet 05/26/21 Unknown Rx Cholecalciferol Vit D3 [Vitamin D3 1,000 unit PO QDAY #30 tablet 05/26/21 Unknown Rx 1,000 UNIT TAB] Darunavir [Prezista] 800 mg PO QDAY #14 tablet 05/26/21 Unknown Rx Dolutegravir [Tivicay] 50 mg PO QDAY #14 tablet 05/26/21 Unknown Rx Fluconazole [Diflucan TAB] 200 mg PO QDAY #14 tablet 05/26/21 Unknown Rx Metoprolol Xl [Metoprolol 25 mg PO QDAY #30 tablet 05/26/21 Unknown Rx SUCCINATE ER TAB] Ritonavir 100 mg PO QDAY #14 tab 05/26/21 Unknown Rx Sodium Bicarbonate 1,300 mg PO TID #90 tablet 05/26/21 Unknown Rx Sulfamethoxazole/Trimethoprim 0.5 each PO MoWeFr #30 tablet 05/26/21 Unknown Rx [Bactrim DS TAB] lamiVUDine [Epivir Hbv] 100 mg PO QDAY #14 tab 05/26/21 Unknown Rx predniSONE 10 mg PO QDAY 21 Days #42 tab 05/26/21 Unknown Rx Exam - Constitutional Vitals: Temp Pulse Resp BP Pulse Ox 98.1 F 117 H 16 180/118 98 06/04/21 07:24 06/04/21 07:24 06/04/21 07:24 06/04/21 07:24 06/04/21 07:24 HEART Score - HEART Score Troponin: Troponin T < 0.010 ng/mL (0.00-0.029) 06/04/21 09:12 Results - Labs CBC & Chem 7: 06/04/21 09:12 Labs: Laboratory Last Values Sodium 141 mmol/L (137-145) 06/04/21 09:12 Potassium 3.8 mmol/L (3.6-5.0) D 06/04/21 09:12 Chloride 105.7 mmol/L (98-107) 06/04/21 09:12 Carbon Dioxide 20 mmol/L (22-30) L 06/04/21 09:12 Anion Gap 19 mmol/L 06/04/21 09:12 BUN 43 mg/dL (9-20) H 06/04/21 09:12 Creatinine 2.6 mg/dL (0.8-1.3) H 06/04/21 09:12 Estimated GFR 33 ml/min 06/04/21 09:12 BUN/Creatinine Ratio 17 % 06/04/21 09:12 Glucose 90 mg/dL (75-100) 06/04/21 09:12 Calcium 9.3 mg/dL (8.4-10.2) 06/04/21 09:12 Magnesium 1.60 mg/dL (1.7-2.3) L 06/04/21 09:12 Troponin T < 0.010 ng/mL (0.00-0.029) 06/04/21 09:12 NT-Pro-B Natriuret Pep 4239 pg/mL (0-450) H 06/04/21 09:12
[2021-06-04] MEDS ORDERED: LAMIVUDINE 100 MG PO SCH (15:15)
[2021-06-04] MEDS ORDERED: MORPHINE 2 MG/1 ML INJ IV PRN (15:22)
[2021-06-04] MEDS ORDERED: oxyCODONE /ACETAMINOPHEN 5-325MG TAB PO PRN (15:22)
[2021-06-04] MEDS ORDERED: ONDANSETRON 4 MG/2 ML INJ IV PRN (15:22)
[2021-06-04] MEDS ORDERED: ACETAMINOPHEN 325 MG TAB PO PRN (15:22)
[2021-06-04] MEDS ORDERED: SULFAMETHOXAZOLE/TRIMETHOPRIM 800/160MG DS TAB PO SCH (16:00)
[2021-06-04] MEDS ORDERED: CHOLECALCIFEROL (VIT D3) 1000 UNIT (25 mcg) TAB PO SCH (16:00)
--- NOTE | 2021-06-04 16:18 | Progress Note ---
Assessment and Plan renal failure on HD HIV Anemia hypotension Shortness of breath Cr appears to be stable off HD will order HD toda for UF only, he is agreeable with HD will check 24 hours creatinine clearance really dose meds strict I&O daily weight Subjective Date of service: 06/04/21 Principal diagnosis: BILLIE Interval history: The patient was recently discharged for BILLIE and was started ondialysis, he was setup to receive HD as an outpatient in [place], however, according to him he was unable to receive HD Objective - Vital Signs Vital signs: Vital Signs - 12hr 06/04/21 07:24 Temperature 98.1 F Pulse Rate 117 H Respiratory 16 Rate Blood Pressure 180/118 [Left] O2 Sat by Pulse 98 Oximetry - Lab 06/04/21 09:12 Most recent lab results Calcium 9.3 mg/dL (8.4-10.2) 06/04/21 09:12 Magnesium 1.60 mg/dL (1.7-2.3) L 06/04/21 09:12 Medications & Allergies - Medications Allergies/Adverse Reactions: Allergies No Known Allergies Allergy (Verified 04/20/21 08:43) Home Medications: Home Medications Medication Instructions Recorded Confirmed Last Taken Type Multivit-Min/Folic/Vit K/Lycop 1 tab PO QDAY 04/21/21 05/13/21 3 Days Ago History [Men's Multivitamin Tablet] ~04/18/21 ALPRAZolam [Xanax TAB] 0.25 mg PO DAILY PRN #10 tablet 05/26/21 Unknown Rx Cholecalciferol Vit D3 [Vitamin D3 1,000 unit PO QDAY #30 tablet 05/26/21 Unknown Rx 1,000 UNIT TAB] Darunavir [Prezista] 800 mg PO QDAY #14 tablet 05/26/21 Unknown Rx Dolutegravir [Tivicay] 50 mg PO QDAY #14 tablet 05/26/21 Unknown Rx Fluconazole [Diflucan TAB] 200 mg PO QDAY #14 tablet 05/26/21 Unknown Rx Metoprolol Xl [Metoprolol 25 mg PO QDAY #30 tablet 05/26/21 Unknown Rx SUCCINATE ER TAB] Ritonavir 100 mg PO QDAY #14 tab 05/26/21 Unknown Rx Sodium Bicarbonate 1,300 mg PO TID #90 tablet 05/26/21 Unknown Rx Sulfamethoxazole/Trimethoprim 0.5 each PO MoWeFr #30 tablet 05/26/21 Unknown Rx [Bactrim DS TAB] lamiVUDine [Epivir Hbv] 100 mg PO QDAY #14 tab 05/26/21 Unknown Rx predniSONE 10 mg PO QDAY 21 Days #42 tab 05/26/21 Unknown Rx Active Medications: Generic Name Dose Route Start Last Admin Trade Name Freq PRN Reason Stop Dose Admin Acetaminophen 650 mg 06/04/21 15:22 Acetaminophen 325 Mg Tab PO Q4H PRN Pain MILD(1-3)/Fever >100.5/LANGLEY Alprazolam 0.25 mg 06/04/21 15:05 Alprazolam 0.25 Mg Tab PO DAILY PRN Anxiety Cholecalciferol 1,000 unit 06/04/21 16:00 Cholecalciferol (Vit D3) 1000 Unit (25 Mcg) Tab PO QDAY [facility] Darunavir 800 mg 06/05/21 10:00 Darunavir 800 Mg Tab PO QDAY [facility] Dolutegravir Sodium 50 mg 06/05/21 10:00 Dolutegravir 50 Mg Tab PO QDAY [facility] Heparin Sodium (Porcine) 5,000 unit 06/04/21 22:00 Heparin 5,000 Unit/1 Ml Vial SUB-Q Q12HR [facility] Lamivudine 50 mg 06/05/21 10:00 Lamivudine 50 Mg/5 Ml Oral Liqd PO QDAY [facility] Metoprolol Succinate 25 mg 06/05/21 10:00 Metoprolol Succinate Xl 25 Mg Tab PO QDAY [facility] Morphine Sulfate 2 mg 06/04/21 15:22 Morphine 2 Mg/1 Ml Inj IV Q4H PRN Pain, Moderate (4-6) Multivitamins 1 each 06/05/21 10:00 Multivitamins ,Therapeutic Tab PO QDAY [facility] Ondansetron HCl 4 mg 06/04/21 15:22 Ondansetron 4 Mg/2 Ml Inj IV Q8H PRN Nausea And Vomiting Oxycodone/Acetaminophen 1 tab 06/04/21 15:22 Oxycodone /Acetaminophen 5-325mg Tab PO Q6H PRN Pain, Moderate (4-6) Prednisone 10 mg 06/05/21 10:00 Prednisone 10 Mg Tab PO QDAY [facility] Ritonavir 100 mg 06/05/21 10:00 Ritonavir 100 Mg Tab PO QDAY [facility] Sodium Bicarbonate 1,300 mg 06/04/21 20:00 Sodium Bicarbonate 650 Mg Tab PO TID SANTOS Sodium Chloride 10 ml 06/04/21 22:00 Sodium Chloride 0.9% 10 Ml Flush Syringe IV BID SANTOS Sodium Chloride 10 ml 06/04/21 15:22 Sodium Chloride 0.9% 10 Ml Flush Syringe IV PRN PRN LINE FLUSH Trimethoprim/Sulfamethoxazole 0.5 each 06/04/21 16:00 Sulfamethoxazole/Trimethoprim 800/160mg Ds Tab PO MoWeFr [facility] Protocol
[2021-06-04] MEDS ORDERED: METOPROLOL SUCCINATE XL 25 MG TAB PO SCH (18:00)
[2021-06-04 19:50] VITALS: BP 147/102
[2021-06-04] MEDS ORDERED: SODIUM BICARBONATE 650 MG TAB PO SCH (20:00)
[2021-06-04] MEDS ORDERED: HEPARIN 5,000 UNIT/1 ML VIAL SUB-Q SCH (22:00)
[2021-06-05] MEDS ORDERED: RITONAVIR 100 MG TAB PO SCH (10:00)
[2021-06-05] MEDS ORDERED: VIT K PO SCH (10:00)
[2021-06-05] MEDS ORDERED: lamoTRIgine 100 MG TAB PO SCH (10:00)
[2021-06-05] MEDS ORDERED: LYCOP PO SCH (10:00)
[2021-06-05] MEDS ORDERED: MULTIVITAMINS ,THERAPEUTIC TAB PO SCH (10:00)
[2021-06-05] MEDS ORDERED: [UNRECOGNIZED DRUG - OTHER] PO SCH (10:00)
[2021-06-05] MEDS ORDERED: predniSONE 10 MG TAB PO SCH (10:00)
[2021-06-05] MEDS ORDERED: DOLUTEGRAVIR 50 MG TAB PO SCH (10:00)
[2021-06-05] MEDS ORDERED: MULTIVIT MIN PO SCH (10:00)
[2021-06-05] MEDS ORDERED: lamiVUDine 50 MG/5 ML ORAL LIQD PO SCH (10:00)
[2021-06-05] MEDS ORDERED: DARUNAVIR 800 MG TAB PO SCH (10:00)
[2021-06-05] MEDS ORDERED: FOLIC PO SCH (10:00)
== END 2021-06-04 19:55 | disposition home or self-care (01) | DRG 314 ==
LOC: ED 06:36 → 3A 15:23
PROVIDERS: ADMIT Internal Medicine; ATTEND Internal Medicine
PROC: 5A1D70Z Performance of Urinary Filtration, Intermittent, Less than 6 Hours Per Day (ICD-10-PCS; principal; 2021-06-04)
DX: I95.9 Hypotension, unspecified (principal); N18.6 End stage renal disease; I12.0 Hypertensive chronic kidney disease with stage 5 chronic kidney disease or end stage renal disease; J98.2 Interstitial emphysema; Z87.891 Personal history of nicotine dependence; Z21 Asymptomatic human immunodeficiency virus [HIV] infection status; D64.9 Anemia, unspecified; Z82.49 Family history of ischemic heart disease and other diseases of the circulatory system
CPT/HCPCS: 36415; 71046; 80048; 83735; 83880; 84484; G0378

== ENCOUNTER 2021-06-07 10:19 | Emergency (ER) | payer SELFPAY ==
[2021-06-07 12:20] LABS: Calcium 9.2 mg/dL (8.4-10.2)
[2021-06-07] MEDS ORDERED: LORazepam 1 MG TAB PO ONE (13:37)
--- NOTE | 2021-06-07 13:38 | Emergency Department Report ---
ED General Adult HPI - General Chief complaint: Medical Clearance Stated complaint: DIALYSIS COMES EVERY WEEK Time Seen by Provider: 06/07/21 13:02 Source: patient, RN notes reviewed, old records reviewed Mode of arrival: Wheelchair Limitations: Physical Limitation - History of Present Illness Initial comments: The patient is a 40-year-old gentleman, with a history of end-stage renal disease, on hemodialysis, debility, and a wheelchair, HIV, presenting to the ER today with a complaint of request for hemodialysis. Patient reports that he is a resident of [facility]. He reports that he was instructed to present to [employer] for hemodialysis, but since he is not a resident of [place] or [facility], he was not able to obtain dialysis as an outpatient. He is anxious, and denies physical pain. He is requesting refill on his antihypertensive therapy. He produces urine. Severity scale (0 -10): 0 - Related Data Home Medications Medication Instructions Recorded Confirmed Last Taken Multivit-Min/Folic/Vit K/Lycop 1 tab PO QDAY 04/21/21 05/13/21 3 Days Ago [Men's Multivitamin Tablet] ~04/18/21 Previous Rx's Medication Instructions Recorded Last Taken Type ALPRAZolam [Xanax TAB] 0.25 mg PO DAILY PRN #10 tablet 05/26/21 Unknown Rx Cholecalciferol Vit D3 [Vitamin D3 1,000 unit PO QDAY #30 tablet 05/26/21 Unknown Rx 1,000 UNIT TAB] Darunavir [Prezista] 800 mg PO QDAY #14 tablet 05/26/21 Unknown Rx Dolutegravir [Tivicay] 50 mg PO QDAY #14 tablet 05/26/21 Unknown Rx Fluconazole [Diflucan TAB] 200 mg PO QDAY #14 tablet 05/26/21 Unknown Rx Ritonavir 100 mg PO QDAY #14 tab 05/26/21 Unknown Rx Sodium Bicarbonate 1,300 mg PO TID #90 tablet 05/26/21 Unknown Rx Sulfamethoxazole/Trimethoprim 0.5 each PO MoWeFr #30 tablet 05/26/21 Unknown Rx [Bactrim DS TAB] lamiVUDine [Epivir Hbv] 100 mg PO QDAY #14 tab 05/26/21 Unknown Rx predniSONE 10 mg PO QDAY 21 Days #42 tab 05/26/21 Unknown Rx Metoprolol Xl [Metoprolol 25 mg PO QDAY #30 tablet 06/07/21 Unknown Rx SUCCINATE ER TAB] Allergies Allergy/AdvReac Type Severity Reaction Status Date / Time No Known Allergies Allergy Verified 04/20/21 08:43 ED Review of Systems ROS: Stated complaint: DIALYSIS COMES EVERY WEEK Other details as noted in HPI Constitutional: denies: fever Respiratory: denies: cough Cardiovascular: denies: chest pain, palpitations Gastrointestinal: denies: abdominal pain Neurological: weakness (Chronic weakness) Psychiatric: anxiety ED Past Medical Hx - Past Medical History Hx Hypertension: Yes Hx Renal Disease: Yes (On dialysis) Hx HIV: Yes - Social History Smoking Status: Former Smoker - Medications Home Medications: Home Medications Medication Instructions Recorded Confirmed Last Taken Type Multivit-Min/Folic/Vit K/Lycop 1 tab PO QDAY 04/21/21 05/13/21 3 Days Ago History [Men's Multivitamin Tablet] ~04/18/21 ALPRAZolam [Xanax TAB] 0.25 mg PO DAILY PRN #10 tablet 05/26/21 Unknown Rx Cholecalciferol Vit D3 [Vitamin D3 1,000 unit PO QDAY #30 tablet 05/26/21 Unknown Rx 1,000 UNIT TAB] Darunavir [Prezista] 800 mg PO QDAY #14 tablet 05/26/21 Unknown Rx Dolutegravir [Tivicay] 50 mg PO QDAY #14 tablet 05/26/21 Unknown Rx Fluconazole [Diflucan TAB] 200 mg PO QDAY #14 tablet 05/26/21 Unknown Rx Ritonavir 100 mg PO QDAY #14 tab 05/26/21 Unknown Rx Sodium Bicarbonate 1,300 mg PO TID #90 tablet 05/26/21 Unknown Rx Sulfamethoxazole/Trimethoprim 0.5 each PO MoWeFr #30 tablet 05/26/21 Unknown Rx [Bactrim DS TAB] lamiVUDine [Epivir Hbv] 100 mg PO QDAY #14 tab 05/26/21 Unknown Rx predniSONE 10 mg PO QDAY 21 Days #42 tab 05/26/21 Unknown Rx Metoprolol Xl [Metoprolol 25 mg PO QDAY #30 tablet 06/07/21 Unknown Rx SUCCINATE ER TAB] ED Physical Exam - General Limitations: Physical Limitation General appearance: alert, anxious - Head Head exam: Present: atraumatic, normocephalic - Eye Eye exam: Present: normal appearance, EOMI. Absent: nystagmus - ENT ENT exam: Present: normal exam, normal orophraynx, mucous membranes moist, normal external ear exam - Neck Neck exam: Present: normal inspection, full ROM. Absent: tenderness, meningismus - Respiratory Respiratory exam: Present: normal lung sounds bilaterally, other (There is a right-sided thoracic vascular access catheter noted, without redness, pus or streaking). Absent: respiratory distress, wheezes, rales, rhonchi, stridor, decreased breath sounds - Cardiovascular Cardiovascular Exam: Present: normal rhythm, tachycardia, normal heart sounds. Absent: bradycardia, irregular rhythm, systolic murmur, diastolic murmur, rubs, gallop - GI/Abdominal GI/Abdominal exam: Present: soft. Absent: distended, tenderness, guarding, rebound, rigid, pulsatile mass - Rectal Rectal exam: Present: deferred - Extremities Exam Extremities exam: Present: normal inspection, other (2+ pulses noted in the bilateral upper and lower extremities. There is no palpable cord. negative Homans sign. Muscular compartments are soft. The pelvis is stable.). Absent: pedal edema, calf tenderness - Back Exam Back exam: Present: normal inspection. Absent: tenderness, CVA tenderness (R), CVA tenderness (L), paraspinal tenderness, vertebral tenderness - Neurological Exam Neurological exam: Present: alert, oriented X3, other (There is no facial droop. The tongue is midline. EOMI. 5 out of 5 strength bilateral upper extremities. Chronic extremity weakness in his lower extremities.) - Psychiatric Psychiatric exam: Present: normal affect, normal mood - Skin Skin exam: Present: warm, dry, intact, normal color. Absent: rash ED Course Vital Signs 06/07/21 06/07/21 11:05 13:20 Temperature 97.9 F Pulse Rate 120 H 116 H Respiratory 22 16 Rate Blood Pressure 173/123 Blood Pressure 170/126 [Right] O2 Sat by Pulse 95 96 Oximetry - Pulse Oximetry Interpretation Digit-Finger Initial Pulse Oximetry Readin O2 Sat by Pulse Oximetry: 99 Actions Taken: none ED Medical Decision Making - Lab Data Result diagrams: 06/07/21 11:16 Vital Signs 06/07/21 06/07/21 11:05 13:20 Temperature 97.9 F Pulse Rate 120 H 116 H Respiratory 22 16 Rate Blood Pressure 173/123 Blood Pressure 170/126 [Right] O2 Sat by Pulse 95 96 Oximetry Lab Results 06/07/21 Range/Units 11:16 Sodium 140 (137-145) mmol/L Potassium 3.4 L (3.6-5.0) mmol/L Chloride 106.8 (98-107) mmol/L Carbon Dioxide 16 L (22-30) mmol/L Anion Gap 21 mmol/L BUN 67 H (9-20) mg/dL Creatinine 2.5 H (0.8-1.3) mg/dL Estimated GFR 35 ml/min BUN/Creatinine Ratio 27 % Glucose 111 H (75-100) mg/dL Calcium 9.2 (8.4-10.2) mg/dL Magnesium 1.70 (1.7-2.3) mg/dL - Medical Decision Making Differential diagnosis, including but not limited to: End-stage renal disease, encounter for medical screening examination, chronic hypertension, chronic tachycardia Assessment and plan: 40-year-old gentleman with a complaint of painless request for hemodialysis. Lungs are clear. Saturating at 99% on room air. Tachycardia improved, heart rate 105 to 109 bpm. As per review of recent discharge summary from June 01, 2021, patient has had some issues with tachycardia. Hypertension is chronic. It does not appear to be acutely decompensated. Please reference the [employer] clinical policy on asymptomatic hypertension. He was instructed to present to the [facility], [facility], or [employer] for his continued HIV care. We will reiterate the aforementioned recommendations, have also obtain case management consultation and evaluation to determine what resources this patient might be entitled to. At this point time, he does not meet criteria for admission for hemodialysis. He will need to follow-up with his outpatient primary care doctor for his chronic hypertension, and chronic HIV, chronic debility, chronic intermittent tachycardia. Heart rate 105 to 109 bpm at this time. Given Vistaril for anxiety Critical care attestation.: If time is entered above; I have spent that time in minutes in the direct care of this critically ill patient, excluding procedure time. ED Disposition Clinical Impression: ESRD on dialysis, Hypertension Disposition: HOME / SELF CARE / HOMELESS Is pt being admited?: No Does the pt Need Aspirin: No Condition: Stable Instructions: Hypertension (ED) Additional Instructions: Please continue current antiviral therapy. Patient may follow-up at the [facility], and [facility], for continued care for HIV. The patient may alternatively follow-up with an infectious disease group such as [facility] infectious disease consultants. We do recommend follow-up with an outpatient cash applications coordinator, such as Dr. Alcantara or Dr Perez within the next week. We also recommend follow-up with a primary care doctor, such as the [facility] within the next month. Patient was seen today by case management, who provided resources for outpatient acquisition of healthcare insurance. Patient may also go onto the [employer] website and apply for insurance. The patient may be entitled to financial assistance, please reference their website for further instructions. We recommend follow-up in 2 days for repeat laboratory testing to assess need for hemodialysis. The patient may return to this emergency room, or follow-up with an AV outpatient physicians that have been mentioned. Please return to the emergency room right away with new pain, worsened pain, migration of pain, projectile vomiting, change in mental status, confusion, inability tolerate liquid feeds, new, worsened or different symptoms not present on the initial emergency room evaluation Referrals: MARLO ALCANTARA MD [Staff Physician] - 3-5 Days JUSTO PEREZ MD [Staff Physician] - 3-5 Days [facility] [Provider Group] - 3-5 Days [facility] [Outside] - 3-5 Days [facility] [Outside] - 3-5 Days [facility] [Provider Group] - 3-5 Days
[2021-06-07] MEDS ORDERED: hydrOXYzine PAMOATE 25 MG CAP PO ONE (13:44)
[2021-06-07 13:58] VITALS: BP 169/121
== END 2021-06-07 14:55 | disposition home or self-care (01) ==
LOC: ED 10:19
DX: I12.0 Hypertensive chronic kidney disease with stage 5 chronic kidney disease or end stage renal disease (principal); N18.6 End stage renal disease; Z99.2 Dependence on renal dialysis; Z21 Asymptomatic human immunodeficiency virus [HIV] infection status; Z87.891 Personal history of nicotine dependence
CPT/HCPCS: 36415; 80048; 83735; 99284

== ENCOUNTER 2021-06-09 11:02 | Inpatient (IN) | payer SELFPAY ==
--- NOTE | 2021-06-09 11:43 | Emergency Department Report ---
HPI - General Chief Complaint: Weakness Time Seen by Provider: 06/09/21 11:27 - HPI HPI: Room 37 The patient is a 40-year-old male present with chief complaint of "need dialysis." Patient has history of end-stage renal disease states he does not have a hospice community liaison. Patient states last time he was dialyzed was at this hospital on 06/04/2021. Patient states he was referred to the [facility] for hemodialysis however when he went there he was rejected secondary to his ZIP Code not being in [facility]. Patient states this hospital is local for him and he needs a local hospice community liaison. Patient states for the past 2 days she has had shortness of breath. Patient also admits to an occasional cough that is nonproductive. Patient denies history of fever. Patient is HIV positive and states he has been compliant with his HIV medications but is unaware of his last CD4 count ED Past Medical Hx - Past Medical History Hx Hypertension: Yes Hx Renal Disease: Yes (On dialysis) Hx HIV: Yes (Unknown CD4 count, compliant with meds) - Surgical History Additional Surgical History: Right chest Vas-Cath - Family History Family history: no significant - Social History Smoking Status: Former Smoker (None x4 months) Substance Use Type: None (Denies illicit drug use) - Medications Home Medications: Home Medications Medication Instructions Recorded Confirmed Last Taken Type Multivit-Min/Folic/Vit K/Lycop 1 tab PO QDAY 04/21/21 06/09/21 06/09/21 History [Men's Multivitamin Tablet] Cholecalciferol Vit D3 [Vitamin D3 1,000 unit PO QDAY #30 tablet 05/26/21 06/09/21 06/09/21 Rx 1,000 UNIT TAB] Darunavir [Prezista] 800 mg PO QDAY #14 tablet 05/26/21 06/09/21 06/09/21 Rx Dolutegravir [Tivicay] 50 mg PO QDAY #14 tablet 05/26/21 06/09/21 06/09/21 Rx Ritonavir 100 mg PO QDAY #14 tab 05/26/21 06/09/21 06/09/21 Rx Sodium Bicarbonate 1,300 mg PO TID #90 tablet 05/26/21 06/09/21 06/09/21 Rx lamiVUDine [Epivir Hbv] 100 mg PO QDAY #14 tab 05/26/21 06/09/21 06/09/21 Rx Metoprolol Xl [Metoprolol 25 mg PO QDAY #30 tablet 06/07/21 06/09/21 06/09/21 Rx SUCCINATE ER TAB] ED Review of Systems ROS: Stated complaint: DIDN'T HAVE DIALYSIS Other details as noted in HPI Constitutional: denies: fever Eyes: denies: eye pain ENT: denies: throat pain Respiratory: cough, shortness of breath Cardiovascular: denies: chest pain Endocrine: no symptoms reported Gastrointestinal: denies: abdominal pain Genitourinary: denies: testicular pain Musculoskeletal: denies: back pain Neurological: denies: headache Physical Exam - Physical Exam Vital Signs: Vital Signs 06/09/21 11:17 Temperature 98.9 F Pulse Rate 130 H Respiratory 16 Rate Blood Pressure 164/115 [Left] O2 Sat by Pulse 97 Oximetry Physical Exam: GENERAL: The patient is well-developed been male lying on stretcher not appearing to be in acute distress. [] HEENT: Normocephalic. Atraumatic. Extraocular motions are intact. Patient has moist mucous membranes. NECK: Supple. No meningitic signs are noted. Trachea midline CHEST/LUNGS: Coarse breath sounds left base. Breath sounds bilateral. There is no respiratory distress noted. HEART/CARDIOVASCULAR: Regular. There is tachycardia. There is no gallop rub or murmur. ABDOMEN: Abdomen is soft, nontender. Patient has normal bowel sounds. There is no abdominal distention. SKIN: There is no rash. There is no edema. There is no diaphoresis. NEURO: The patient is awake, alert, and oriented. The patient is cooperative. The patient has no focal neurologic deficits. The patient has normal speech. GCS 15 MUSCULOSKELETAL: There is no evidence of acute injury. ED Course Vital Signs 06/09/21 11:17 Temperature 98.9 F Pulse Rate 130 H Respiratory 16 Rate Blood Pressure 164/115 [Left] O2 Sat by Pulse 97 Oximetry - Consultations Consultation #1: 06/09/21 13:25 Nephrology paged ED Medical Decision Making - Lab Data Result diagrams: 06/09/21 12:24 06/09/21 12:24 - Radiology Data Radiology results: report reviewed (Chest x-ray), image reviewed (Chest x-ray) interpreted by me: Chest x-ray-no definite focal infiltrates, no pneumothorax. Questionable cephalization [facility] [address] [place] [address] XRay Report Signed Patient: YOKASTA HOLDER MR#: [id number] : 1980 Acct:[id number] Age/Sex: 40 / M ADM Date: 06/09/21 Loc: ED Attending Dr: Ordering Physician: JOSE ANGEL NOYOLA MD Date of Service: 06/09/21 Procedure(s): XR chest 1V ap Accession Number(s): [id number] cc: JOSE ANGEL NOYOLA MD Fluoro Time In Minutes: CHEST 1 VIEW INDICATION / CLINICAL INFORMATION: Shortness of breath. COMPARISON: 06/04/2021 FINDINGS: SUPPORT DEVICES: Unchanged. HEART / MEDIASTINUM: Mild pneumomediastinum within the superior mediastinum, unchanged. LUNGS / PLEURA: No significant pulmonary or pleural abnormality. No pneumothorax. ADDITIONAL FINDINGS: Moderate subcutaneous emphysema involving the bilateral neck regions, slightly improved compared to reference examination. Fairly significant interval improvement in subcutaneous emphysema of the bilateral axillary regions. IMPRESSION: 1. Interval improvement of subcutaneous emphysema of the bilateral supraclavicular and axillary regions. 2. Persistent mild pneumomediastinum and subcutaneous emphysema as above. 3. No new acute cardiopulmonary abnormality to reference from June 04. Signer Name: Brady Burger MD Signed: 06/09/2021 12:50 PM Workstation Name: [email or web address] Transcribed By: SB Dictated By: BRADY BURGER MD Electronically Authenticated By: BRADY BURGER MD Signed Date/Time: 06/09/21 1250 DD/ 1249 TD/TT: - Differential Diagnosis ESRD, hyperkalemia, volume overload, pulmonary edema, pneumonia Critical care attestation.: If time is entered above; I have spent that time in minutes in the direct care of this critically ill patient, excluding procedure time. ED Disposition Clinical Impression: Shortness of breath, Cough, Uremia Disposition: ADMITTED INPATIENT Is pt being admited?: Yes Does the pt Need Aspirin: No Condition: Fair Referrals: LEANNA PHELAN MD [Primary Care Provider] - 3-5 Days Time of Disposition: 14:43 (Hospitalist called (Dr. Harvey))
--- NOTE | 2021-06-09 12:09 | Consultation ---
History of Present Illness - Reason for Consult Consult date: 06/09/21 end stage renal disease Medications and Allergies Allergies Allergy/AdvReac Type Severity Reaction Status Date / Time No Known Allergies Allergy Verified 06/09/21 12:35 Home Medications Medication Instructions Recorded Confirmed Last Taken Type Multivit-Min/Folic/Vit K/Lycop 1 tab PO QDAY 04/21/21 06/09/21 06/09/21 History [Men's Multivitamin Tablet] Cholecalciferol Vit D3 [Vitamin D3 1,000 unit PO QDAY #30 tablet 05/26/21 06/09/21 06/09/21 Rx 1,000 UNIT TAB] Darunavir [Prezista] 800 mg PO QDAY #14 tablet 05/26/21 06/09/21 06/09/21 Rx Dolutegravir [Tivicay] 50 mg PO QDAY #14 tablet 05/26/21 06/09/21 06/09/21 Rx Ritonavir 100 mg PO QDAY #14 tab 05/26/21 06/09/21 06/09/21 Rx Sodium Bicarbonate 1,300 mg PO TID #90 tablet 05/26/21 06/09/21 06/09/21 Rx lamiVUDine [Epivir Hbv] 100 mg PO QDAY #14 tab 05/26/21 06/09/21 06/09/21 Rx Metoprolol Xl [Metoprolol 25 mg PO QDAY #30 tablet 06/07/21 06/09/21 06/09/21 Rx SUCCINATE ER TAB] Exam - Vital Signs Vital signs: Vital Signs Temp Pulse Resp BP Pulse Ox 98.9 F 130 H 16 164/115 97 06/09/21 11:17 06/09/21 11:17 06/09/21 11:17 06/09/21 11:17 06/09/21 11:17 Results - Lab Results 06/09/21 12:24 06/09/21 12:24 Assessment and Plan 1. ESRD: Patient was last dialyzed on 06/04. Currently not established with any outpatient dialysis clinic. Hemodialysis: 2. FEN: Metabolic acidosis, Sod bicarb, monitor. Monitor lytes and volume status. 3. 4. HIV: 5. Hypertension: Continue home BP meds. Monitor BP. 6. Macrocytic Anemia, POA: Chronic. 2/2 ESRD. Epogen with HD as needed. Monitor. Subjective: Patient was seen and examined at the bedside. at the bedside. Examination: General appearance: well-developed, appears stated age, emaciated, no distress, on RA HEENT: atraumatic, DIANE Neck: trachea midline Respiratory: ctab Heart: S1S2, no murmur Abdomen: soft, bowel sounds heard, NT Integumentary: no obvious rash Neurologic: AO, able to move extremities Ext: no edema Hemodialysis access: R IJ tunnel catheter
--- NOTE | 2021-06-09 12:55 | XRay Report ---
CHEST 1 VIEW INDICATION / CLINICAL INFORMATION: Shortness of breath. COMPARISON: 06/04/2021 FINDINGS: SUPPORT DEVICES: Unchanged. HEART / MEDIASTINUM: Mild pneumomediastinum within the superior mediastinum, unchanged. LUNGS / PLEURA: No significant pulmonary or pleural abnormality. No pneumothorax. ADDITIONAL FINDINGS: Moderate subcutaneous emphysema involving the bilateral neck regions, slightly i mproved compared to reference examination. Fairly significant interval improvement in subcutaneous em physema of the bilateral axillary regions. IMPRESSION: 1. Interval improvement of subcutaneous emphysema of the bilateral supraclavicular and axillary nicole ons. 2. Persistent mild pneumomediastinum and subcutaneous emphysema as above. 3. No new acute cardiopulmonary abnormality to reference from June 04. Signer Name: Brady Burger MD Signed: 06/09/2021 12:50 PM Workstation Name: [id number]
[2021-06-09 13:08] LABS: Hematocrit 33.1 % (35.5-45.6); Hemoglobin 10.7 gm/dl (11.8-15.2); Mean Corpuscular HGB Conc 32 % (32-34); Mean Corpuscular Volume 97 fl (84-94); Platelet Count 282 K/mm3 (140-440); Red Blood Count 3.41 M/mm3 (3.65-5.03)
[2021-06-09 13:09] LABS: Red Cell Distribution Width 23.3 % (13.2-15.2)
[2021-06-09 13:32] LABS: Basophils % (Manual) 0 % (0.0-1.8); Total Cells Counted 100
[2021-06-09 13:33] LABS: Anisocytosis 2+; Platelet Estimate Consistent w Auto; Smudge Cells Few; Toxic Granulation 1+
[2021-06-09] MEDS ORDERED: HEPARIN 10,000 UNITS/10 ML VIAL IV PRN (16:10)
--- NOTE | 2021-06-09 16:12 | Event Note ---
Date: 06/09/21
--- NOTE | 2021-06-09 16:40 | History and Physical Report ---
History of Present Illness Chief complaint: I need dialysis History of present illness: 40 YO Male with ESRD on HD who currently does not have an outpatient dialysis center,HIV, HTN presents ED for evaluation. Patient reports "I need dialysis". Patient states that he was last dialyzed on 06/04/2021. Patient states that he was unable to undergo dialysis at [facility]. Patient transported via private vehicle to [facility] for further care and evaluation. Patient seen and evaluated in the emergency department. All lab and imaging studies reviewed. Patient found to have end-stage renal disease. Nephrology team consulted in ED for dialysis. Patient denies fever, chills, chest pain, palpitation, shortness of breath, recent contact, known exposure to COVID-19. Prior admission on 06/04/2021 reviewed. All medication listed at time of admission has been reconciled. Advanced care planning conducted in ED. Past History Past Medical History: ESRD, HIV/AIDS, hypertension Past Surgical History: Other (Dialysis access) Social history: single. denies: smoking, alcohol abuse, prescription drug abuse Family history: diabetes, hypertension Medications and Allergies Allergies Allergy/AdvReac Type Severity Reaction Status Date / Time No Known Allergies Allergy Verified 06/09/21 12:35 Home Medications Medication Instructions Recorded Confirmed Last Taken Type Multivit-Min/Folic/Vit K/Lycop 1 tab PO QDAY 04/21/21 06/09/21 06/09/21 History [Men's Multivitamin Tablet] Cholecalciferol Vit D3 [Vitamin D3 1,000 unit PO QDAY #30 tablet 05/26/21 06/09/21 06/09/21 Rx 1,000 UNIT TAB] Darunavir [Prezista] 800 mg PO QDAY #14 tablet 05/26/21 06/09/21 06/09/21 Rx Dolutegravir [Tivicay] 50 mg PO QDAY #14 tablet 05/26/21 06/09/21 06/09/21 Rx Ritonavir 100 mg PO QDAY #14 tab 05/26/21 06/09/21 06/09/21 Rx Sodium Bicarbonate 1,300 mg PO TID #90 tablet 05/26/21 06/09/21 06/09/21 Rx lamiVUDine [Epivir Hbv] 100 mg PO QDAY #14 tab 05/26/21 06/09/21 06/09/21 Rx Metoprolol Xl [Metoprolol 25 mg PO QDAY #30 tablet 06/07/21 06/09/21 06/09/21 Rx SUCCINATE ER TAB] Active Meds: Active Medications Acetaminophen (Acetaminophen 325 Mg Tab) 650 mg PO Q4H PRN PRN Reason: Pain MILD(1-3)/Fever >100.5/LANG[place] Albuterol (Albuterol 2.5 Mg/3 Ml Nebu) 2.5 mg IH Q4HRT PRN PRN Reason: Shortness Of Breath Heparin Sodium (Porcine) (Heparin 10,000 Units/10 Ml Vial) 3,000 unit IV TRENT PRN PRN Reason: hemodialysis Hydromorphone HCl (Hydromorphone 1 Mg/1 Ml Inj) 0.5 mg IV Q23H PRN PRN Reason: Pain , Severe (7-10) Sodium Chloride (Nacl 0.9%) 100 mls @ 999 mls/hr IV TRENT PRN PRN Reason: Hypotension Ondansetron HCl (Ondansetron 4 Mg/2 Ml Inj) 4 mg IV Q8H PRN PRN Reason: Nausea And Vomiting Oxycodone/Acetaminophen (Oxycodone /Acetaminophen 5-325mg Tab) 1 tab PO Q16H P RN PRN Reason: Pain, Moderate (4-6) Sodium Bicarbonate (Sodium Bicarb 8.4% 50 Meq/50 Ml Syringe) 50 meq IV Q4HR SANTOS Stop: 06/09/21 18:01 Sodium Chloride (Sodium Chloride 0.9% 10 Ml Flush Syringe) 10 ml IV BID SANTOS Sodium Chloride (Sodium Chloride 0.9% 10 Ml Flush Syringe) 10 ml IV PRN PRN PRN Reason: LINE FLUSH Review of Systems Constitutional: no weight loss, no weight gain, no fever, no chills Ears, nose, mouth and throat: no ear pain, no nose pain, no nasal congestion, no nasal discharge Cardiovascular: no chest pain, no rapid/irregular heart beat, no syncope, no lightheadedness, no shortness of breath Respiratory: no cough, no excessive sputum, no hemoptysis, no shortness of breath Gastrointestinal: no abdominal pain, no nausea, no vomiting, no diarrhea, no change in bowel habits Genitourinary Male: no dysuria, no flank pain, no discharge, no urinary hesitancy, no nocturia, no incontinence Rectal: no pain, no incontinence Musculoskeletal: no shooting arm pain, no arm numbness/tingling, no shooting leg pain Integumentary: no rash, no pruritis Neurological: no head injury, no weakness, no tingling, no seizures Psychiatric: no anxiety, no sleep disturbances, no hypersomnia, no change in libido, no disorientation Endocrine: no cold intolerance, no polyphagia, no polydipsia, no nocturia, no flushing Hematologic/Lymphatic: no easy bruising, no easy bleeding Allergic/Immunologic: no urticaria, no allergic rhinitis, no wheezing Exam - Constitutional Vitals: Temp Pulse Resp BP Pulse Ox 98.9 F 130 H 16 164/115 97 06/09/21 11:17 06/09/21 11:17 06/09/21 11:17 06/09/21 11:17 06/09/21 11:17 General appearance: Present: mild distress - EENT Eyes: Present: PERRL ENT: hearing intact, clear oral mucosa - Neck Neck: Present: supple, normal ROM - Respiratory Respiratory effort: normal Respiratory: bilateral: CTA - Cardiovascular Heart Sounds: Present: S1 & S2. Absent: rub, click - Extremities Extremities: pulses symmetrical, No edema Peripheral Pulses: within normal limits - Abdominal General gastrointestinal: Present: soft, non-tender, non-distended, normal bowel sounds Male genitourinary: Present: normal - Integumentary Integumentary: Present: clear, warm, dry - Musculoskeletal Musculoskeletal: gait normal, strength equal bilaterally - Psychiatric Psychiatric: appropriate mood/affect, intact judgment & insight - Neurologic Neurologic: CNII-XII intact, moves all extremities Results - Labs CBC & Chem 7: 06/09/21 12:24 06/09/21 12:24 Labs: Abnormal lab results 06/09/21 06/09/21 Range/Units 12:24 12:24 RBC 3.41 L (3.65-5.03) M/mm3 Hgb 10.7 L (11.8-15.2) gm/dl Hct 33.1 L (35.5-45.6) % MCV 97 H (84-94) fl RDW 23.3 H (13.2-15.2) % Seg Neuts % (Manual) 76.0 H (40.0-70.0) % Lymphocytes % (Manual) 10.0 L (13.4-35.0) % Monocytes % (Manual) 12.0 H (0.0-7.3) % Lymphocytes # (Manual) 0.7 L (1.2-5.4) K/mm3 Monocytes # (Manual) 0.9 H (0.0-0.8) K/mm3 Carbon Dioxide 14 L (22-30) mmol/L BUN 81 H (9-20) mg/dL Creatinine 2.8 H (0.8-1.3) mg/dL Glucose 134 H (75-100) mg/dL Assessment and Plan - Patient Problems (1) End stage renal disease Current Visit: Yes Status: Acute Plan to address problem: Nephrology team consulted in ED, dialysis as per renal team, discharge disp osition after dialysis. (2) HIV (human immunodeficiency virus infection) Current Visit: No Status: Acute Qualifiers: HIV symptom status: symptomatic Qualified Code(s): B20 - Human immunodeficiency virus [HIV] disease Plan to address problem: Continue antiretroviral therapy. Outpatient infectious disease service follow- up. (3) Hypertension Current Visit: No Status: Acute Qualifiers: Hypertension type: primary hypertension Qualified Code(s): I10 - Essential (primary) hypertension Plan to address problem: Monitor blood pressure every shift, continue medical management. (4) DVT prophylaxis Current Visit: Yes Status: Acute Plan to address problem: SCD to bilateral lower extremities while in bed, patient is ambulatory (5) Advance care planning Current Visit: No Status: Acute Plan to address problem: Disease education done, care plan discussed, diagnoses discussed, prognosis discussed, patient is full code. Patient acknowledged understanding and agreement with care plan, +30 minutes
[2021-06-09] MEDS ORDERED: SODIUM CHLORIDE 0.9% 100 ML IV PRN (17:00)
[2021-06-09] MEDS ORDERED: SODIUM BICARB 8.4% 50 MEQ/50 ML SYRINGE IV SCH (17:00)
[2021-06-09] MEDS ORDERED: ALBUTEROL 2.5 MG/3 ML NEBU IH PRN (17:00)
[2021-06-09] MEDS ORDERED: ONDANSETRON 4 MG/2 ML INJ IV PRN (17:00)
[2021-06-09] MEDS ORDERED: HYDROmorphone 1 MG/1 ML INJ IV PRN (17:00)
[2021-06-09] MEDS ORDERED: oxyCODONE /ACETAMINOPHEN 5-325MG TAB PO PRN (17:00)
[2021-06-09] MEDS ORDERED: ACETAMINOPHEN 325 MG TAB PO PRN (17:00)
[2021-06-09 22:08] VITALS: BP 135/102
--- NOTE | 2021-06-11 19:03 | Electrocardiograph Report ---
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
== END 2021-06-09 22:55 | disposition home or self-care (01) | DRG 682 ==
LOC: ED 11:02 → 3A 16:25
PROVIDERS: ADMIT Internal Medicine; ATTEND Internal Medicine
PROC: 5A1D70Z Performance of Urinary Filtration, Intermittent, Less than 6 Hours Per Day (ICD-10-PCS; principal; 2021-06-09)
DX: I12.0 Hypertensive chronic kidney disease with stage 5 chronic kidney disease or end stage renal disease (principal); N18.6 End stage renal disease; B20 Human immunodeficiency virus [HIV] disease; E87.2 Acidosis; Z91.19 Patient's noncompliance with other medical treatment and regimen; Z87.891 Personal history of nicotine dependence; D64.9 Anemia, unspecified; Z83.3 Family history of diabetes mellitus; Z82.49 Family history of ischemic heart disease and other diseases of the circulatory system; Z99.2 Dependence on renal dialysis
CPT/HCPCS: 36415; 71045; 80048; 85007; 85025; 93005; G0378; J3490

== ENCOUNTER 2021-06-14 07:35 | Observation (INO) | payer SELFPAY ==
--- NOTE | 2021-06-14 08:18 | Emergency Department Report ---
ED Shortness of Breath HPI - General Chief Complaint: Weakness Stated Complaint: DIALYSIS Time Seen by Provider: 06/14/21 08:14 Source: patient Mode of arrival: Ambulatory Limitations: No Limitations - History of Present Illness Initial Comments: Patient is 40 years old male with history of end-stage renal disease on hemodialysis. Patient also had history of HIV. Patient presented to the ER complaining of shortness of breath. Patient stated that he missed his dialysis on Monday. Patient denied any fever or chills. No chest pain, abdominal pain, nausea or vomiting. MD Complaint: shortness of breath, cough -: days(s) Severity: moderate - Related Data Home Medications Medication Instructions Recorded Confirmed Last Taken Multivit-Min/Folic/Vit K/Lycop 1 tab PO QDAY 04/21/21 06/09/21 06/09/21 [Men's Multivitamin Tablet] Previous Rx's Medication Instructions Recorded Last Taken Type Cholecalciferol Vit D3 [Vitamin D3 1,000 unit PO QDAY #30 tablet 05/26/21 06/09/21 Rx 1,000 UNIT TAB] Darunavir [Prezista] 800 mg PO QDAY #14 tablet 05/26/21 06/09/21 Rx Dolutegravir [Tivicay] 50 mg PO QDAY #14 tablet 05/26/21 06/09/21 Rx Ritonavir 100 mg PO QDAY #14 tab 05/26/21 06/09/21 Rx Sodium Bicarbonate 1,300 mg PO TID #90 tablet 05/26/21 06/09/21 Rx lamiVUDine [Epivir Hbv] 100 mg PO QDAY #14 tab 05/26/21 06/09/21 Rx Metoprolol Xl [Metoprolol 25 mg PO QDAY #30 tablet 06/07/21 06/09/21 Rx SUCCINATE ER TAB] Allergies Allergy/AdvReac Type Severity Reaction Status Date / Time No Known Allergies Allergy Verified 06/14/21 09:15 ED Review of Systems ROS: Stated complaint: DIALYSIS Other details as noted in HPI Comment: All other systems reviewed and negative Constitutional: denies: chills, fever Respiratory: cough, shortness of breath, SOB with exertion. denies: wheezing Cardiovascular: palpitations. denies: chest pain Gastrointestinal: denies: abdominal pain, nausea, vomiting Neurological: weakness. denies: headache, numbness, paresthesias, confusion ED Past Medical Hx - Past Medical History Hx Hypertension: Yes Hx Renal Disease: Yes (On dialysis) Hx HIV: Yes - Surgical History Additional Surgical History: Right chest Vas-Cath - Social History Smoking Status: Never Smoker - Medications Home Medications: Home Medications Medication Instructions Recorded Confirmed Last Taken Type Multivit-Min/Folic/Vit K/Lycop 1 tab PO QDAY 04/21/21 06/09/21 06/09/21 History [Men's Multivitamin Tablet] Cholecalciferol Vit D3 [Vitamin D3 1,000 unit PO QDAY #30 tablet 05/26/21 06/09/21 06/09/21 Rx 1,000 UNIT TAB] Darunavir [Prezista] 800 mg PO QDAY #14 tablet 05/26/21 06/09/21 06/09/21 Rx Dolutegravir [Tivicay] 50 mg PO QDAY #14 tablet 05/26/21 06/09/21 06/09/21 Rx Ritonavir 100 mg PO QDAY #14 tab 05/26/21 06/09/21 06/09/21 Rx Sodium Bicarbonate 1,300 mg PO TID #90 tablet 05/26/21 06/09/21 06/09/21 Rx lamiVUDine [Epivir Hbv] 100 mg PO QDAY #14 tab 05/26/21 06/09/21 06/09/21 Rx Metoprolol Xl [Metoprolol 25 mg PO QDAY #30 tablet 06/07/21 06/09/21 06/09/21 Rx SUCCINATE ER TAB] ED Physical Exam - General Limitations: No Limitations General appearance: alert, in no apparent distress - Head Head exam: Present: atraumatic, normocephalic, normal inspection - Eye Eye exam: Present: normal appearance - ENT ENT exam: Present: normal exam, normal orophraynx, mucous membranes moist - Neck Neck exam: Present: normal inspection, full ROM. Absent: tenderness, meningismus - Respiratory Respiratory exam: Present: normal lung sounds bilaterally - Cardiovascular Cardiovascular Exam: Present: normal rhythm, tachycardia, normal heart sounds - GI/Abdominal GI/Abdominal exam: Present: soft, normal bowel sounds. Absent: distended, tenderness, guarding, rebound, rigid, organomegaly, mass, bruit, pulsatile mass, hernia - Extremities Exam Extremities exam: Present: normal inspection, full ROM, normal capillary refill. Absent: tenderness, pedal edema, joint swelling, calf tenderness - Back Exam Back exam: Present: normal inspection, full ROM. Absent: CVA tenderness (R), CVA tenderness (L) - Neurological Exam Neurological exam: Present: alert, oriented X3, CN II-XII intact, normal gait, reflexes normal. Absent: motor sensory deficit - Psychiatric Psychiatric exam: Present: normal mood - Skin Skin exam: Present: warm, intact, normal color ED Course Vital Signs 06/14/21 06/14/21 06/14/21 07:45 08:26 08:47 Temperature 98.7 F Pulse Rate 132 H 127 H Respiratory 16 22 Rate Blood Pressure 166/119 [Left] O2 Sat by Pulse 100 99 Oximetry ED Medical Decision Making - Lab Data Result diagrams: 06/14/21 08:34 06/14/21 08:34 - Radiology Data Radiology results: report reviewed - Medical Decision Making Patient is 40 years old male with history of end-stage renal disease on hemodialysis. Patient also had history of HIV. Patient presented to the ER complaining of shortness of breath. Patient stated that he missed his dialysis on Monday. Patient denied any fever or chills. No chest pain, abdominal pain, nausea or vomiting. Labs reviewed and showed a creatinine of 2.4. Potassium 3.9. Patient chest x- ray showed pulmonary edema. Blood pressure is 166/119. I spoke to Dr. Ching, coat cutter. He advised to admit the patient for dialysis and volume removal. I discussed the patient with Dr. Zamora, he advised to admit the patient to . Critical care attestation.: If time is entered above; I have spent that time in minutes in the direct care of this critically ill patient, excluding procedure time. ED Disposition Clinical Impression: End-stage renal disease needing dialysis, Hypervolemia Disposition: ADMITTED INPATIENT Is pt being admited?: Yes Condition: Stable
[2021-06-14 08:48] LABS: Hemoglobin 9.2 gm/dl (11.8-15.2); Mean Corpuscular HGB Conc 33 % (32-34); Mean Corpuscular Volume 97 fl (84-94); Platelet Count 248 K/mm3 (140-440); Red Blood Count 2.89 M/mm3 (3.65-5.03)
[2021-06-14 08:49] LABS: Red Cell Distribution Width 22.9 % (13.2-15.2)
[2021-06-14 09:36] LABS: Anisocytosis 1+; Basophils % (Manual) 0 % (0.0-1.8); Platelet Estimate Consistent w Auto; Total Cells Counted 100
--- NOTE | 2021-06-14 10:23 | XRay Report ---
XR chest 1V ap INDICATION / CLINICAL INFORMATION: Dyspnea. COMPARISON: 06/09/2021 FINDINGS: SUPPORT DEVICES: Unchanged. HEART /PULMONARY VASCULATURE: Heart size is unchanged. Pneumomediastinum appears improved. LUNGS / PLEURA: Mild hazy bilateral pulmonary opacities, right greater than left, similar to prior st udy. No focal airspace consolidation. No sizable pleural effusion. No pneumothorax. IMPRESSION: No significant interval change. Right greater than left hazy opacities appear unchanged. No evidence of new or worsening disease. Signer Name: Amando Elmore MD Signed: 06/14/2021 10:19 AM Workstation Name: [id number]
--- NOTE | 2021-06-14 11:22 | History and Physical Report ---
History of Present Illness Date of examination: 06/14/21 Date of admission: 06/14/21 Chief complaint: missed HD History of present illness: The patient is a 40 YO male with history of Hypertension, Anemia, HIV and BILLIE/ESRD on HD who presented to [facility] ED 06/09 for hemodialysis need. Patient is currently not established with any outpatient dialysis unit and has been coming to ED for dialysis. He has been using wheelchair. The patient presents again today with complaints of shortness of breath. Patient denies any chest pain, fever or chills. No headache or visual disturbances Past History Past Medical History: ESRD, HIV/AIDS, hypertension Past Surgical History: No surgical history Social history: no significant social history Family history: no significant family history Medications and Allergies Allergies Allergy/AdvReac Type Severity Reaction Status Date / Time No Known Allergies Allergy Verified 06/14/21 09:15 Home Medications Medication Instructions Recorded Confirmed Last Taken Type Multivit-Min/Folic/Vit K/Lycop 1 tab PO QDAY 04/21/21 06/09/21 06/09/21 History [Men's Multivitamin Tablet] Cholecalciferol Vit D3 [Vitamin D3 1,000 unit PO QDAY #30 tablet 05/26/21 06/09/21 06/09/21 Rx 1,000 UNIT TAB] Darunavir [Prezista] 800 mg PO QDAY #14 tablet 05/26/21 06/09/21 06/09/21 Rx Dolutegravir [Tivicay] 50 mg PO QDAY #14 tablet 05/26/21 06/09/21 06/09/21 Rx Ritonavir 100 mg PO QDAY #14 tab 05/26/21 06/09/21 06/09/21 Rx Sodium Bicarbonate 1,300 mg PO TID #90 tablet 05/26/21 06/09/21 06/09/21 Rx lamiVUDine [Epivir Hbv] 100 mg PO QDAY #14 tab 05/26/21 06/09/21 06/09/21 Rx Metoprolol Xl [Metoprolol 25 mg PO QDAY #30 tablet 06/07/21 06/09/21 06/09/21 Rx SUCCINATE ER TAB] Review of Systems All systems: negative Exam - Constitutional Vitals: Temp Pulse Resp BP Pulse Ox 98.7 F 111 H 30 H 155/114 98 06/14/21 07:45 06/14/21 10:31 06/14/21 10:31 06/14/21 10:31 06/14/21 10:31 General appearance: Present: no acute distress, well-nourished - EENT Eyes: Present: PERRL ENT: hearing intact, clear oral mucosa - Neck Neck: Present: supple, normal ROM - Respiratory Respiratory effort: normal Respiratory: bilateral: rales - Cardiovascular Heart Sounds: Present: S1 & S2. Absent: rub, click - Extremities Extremities: pulses symmetrical, No edema Peripheral Pulses: within normal limits - Abdominal General gastrointestinal: Present: soft, non-tender, non-distended, normal bowel sounds Male genitourinary: Present: normal - Integumentary Integumentary: Present: clear, warm, dry - Musculoskeletal Musculoskeletal: gait normal, strength equal bilaterally - Psychiatric Psychiatric: appropriate mood/affect, intact judgment & insight - Neurologic Neurologic: CNII-XII intact, moves all extremities Results - Labs CBC & Chem 7: 06/14/21 08:34 06/14/21 08:34 Labs: Laboratory Last Values WBC 7.8 K/mm3 (4.5-11.0) 06/14/21 08:34 RBC 2.89 M/mm3 (3.65-5.03) L 06/14/21 08:34 Hgb 9.2 gm/dl (11.8-15.2) L 06/14/21 08:34 Hct 28.0 % (35.5-45.6) L 06/14/21 08:34 MCV 97 fl (84-94) H 06/14/21 08:34 MCH 32 pg (28-32) 06/14/21 08:34 MCHC 33 % (32-34) 06/14/21 08:34 RDW 22.9 % (13.2-15.2) H 06/14/21 08:34 Plt Count 248 K/mm3 (140-440) 06/14/21 08:34 Add Manual Diff Complete 06/14/21 08:34 Total Counted 100 06/14/21 08:34 Seg Neuts % (Manual) 84.0 % (40.0-70.0) H 06/14/21 08:34 Band Neutrophils % 0 % 06/14/21 08:34 Lymphocytes % (Manual) 9.0 % (13.4-35.0) L 06/14/21 08:34 Reactive Lymphs % (Man) 0 % 06/14/21 08:34 Monocytes % (Manual) 5.0 % (0.0-7.3) 06/14/21 08:34 Eosinophils % (Manual) 1.0 % (0.0-4.3) 06/14/21 08:34 Basophils % (Manual) 0 % (0.0-1.8) 06/14/21 08:34 Metamyelocytes % 1.0 % 06/14/21 08:34 Myelocytes % 0 % 06/14/21 08:34 Promyelocytes % 0 % 06/14/21 08:34 Blast Cells % 0 % 06/14/21 08:34 Nucleated RBC % Not Reportable 06/14/21 08:34 Seg Neutrophils # Man 6.6 K/mm3 (1.8-7.7) 06/14/21 08:34 Band Neutrophils # 0.0 K/mm3 06/14/21 08:34 Lymphocytes # (Manual) 0.7 K/mm3 (1.2-5.4) L 06/14/21 08:34 Abs React Lymphs (Man) 0.0 K/mm3 06/14/21 08:34 Monocytes # (Manual) 0.4 K/mm3 (0.0-0.8) 06/14/21 08:34 Eosinophils # (Manual) 0.1 K/mm3 (0.0-0.4) 06/14/21 08:34 Basophils # (Manual) 0.0 K/mm3 (0.0-0.1) 06/14/21 08:34 Metamyelocytes # 0.1 K/mm3 06/14/21 08:34 Myelocytes # 0.0 K/mm3 06/14/21 08:34 Promyelocytes # 0.0 K/mm3 06/14/21 08:34 Blast Cells # 0.0 K/mm3 06/14/21 08:34 WBC Morphology Not Reportable 06/14/21 08:34 Hypersegmented Neuts Not Reportable 06/14/21 08:34 Hyposegmented Neuts Not Reportable 06/14/21 08:34 Hypogranular Neuts Not Reportable 06/14/21 08:34 Smudge Cells Not Reportable 06/14/21 08:34 Toxic Granulation Not Reportable 06/14/21 08:34 Toxic Vacuolation Not Reportable 06/14/21 08:34 Dohle Bodies Not Reportable 06/14/21 08:34 Pelger-Huet Anomaly Not Reportable 06/14/21 08:34 Karishma Rods Not Reportable 06/14/21 08:34 Platelet Estimate Consistent w auto 06/14/21 08:34 Clumped Platelets Not Reportable 06/14/21 08:34 Plt Clumps, EDTA Not Reportable 06/14/21 08:34 Large Platelets Not Reportable 06/14/21 08:34 Giant Platelets Not Reportable 06/14/21 08:34 Platelet Satelliting Not Reportable 06/14/21 08:34 Plt Morphology Comment Not Reportable 06/14/21 08:34 RBC Morphology Not Reportable 06/14/21 08:34 Dimorphic RBCs Not Reportable 06/14/21 08:34 Polychromasia Not Reportable 06/14/21 08:34 Hypochromasia Not Reportable 06/14/21 08:34 Poikilocytosis Not Reportable 06/14/21 08:34 Anisocytosis 1+ 06/14/21 08:34 Microcytosis Not Reportable 06/14/21 08:34 Macrocytosis Not Reportable 06/14/21 08:34 Spherocytes Not Reportable 06/14/21 08:34 Pappenheimer Bodies Not Reportable 06/14/21 08:34 Sickle Cells Not Reportable 06/14/21 08:34 Target Cells Not Reportable 06/14/21 08:34 Tear Drop Cells Not Reportable 06/14/21 08:34 Ovalocytes Not Reportable 06/14/21 08:34 Helmet Cells Not Reportable 06/14/21 08:34 Bragg-Cobre Bodies Not Reportable 06/14/21 08:34 [place] Rings Not Reportable 06/14/21 08:34 [place] Cells Not Reportable 06/14/21 08:34 Bite Cells Not Reportable 06/14/21 08:34 Crenated Cell Not Reportable 06/14/21 08:34 Elliptocytes Not Reportable 06/14/21 08:34 Acanthocytes (Spur) Not Reportable 06/14/21 08:34 Rouleaux Not Reportable 06/14/21 08:34 Hemoglobin C Crystals Not Reportable 06/14/21 08:34 Schistocytes Not Reportable 06/14/21 08:34 Malaria parasites Not Reportable 06/14/21 08:34 Angus Bodies Not Reportable 06/14/21 08:34 Hem Pathologist Commnt No 06/14/21 08:34 Sodium 137 mmol/L (137-145) 06/14/21 08:34 Potassium 3.5 mmol/L (3.6-5.0) L 06/14/21 08:34 Chloride 106.0 mmol/L (98-107) 06/14/21 08:34 Carbon Dioxide 17 mmol/L (22-30) L 06/14/21 08:34 Anion Gap 18 mmol/L 06/14/21 08:34 BUN 41 mg/dL (9-20) H 06/14/21 08:34 Creatinine 2.1 mg/dL (0.8-1.3) H 06/14/21 08:34 Estimated GFR 43 ml/min 06/14/21 08:34 BUN/Creatinine Ratio 20 % 06/14/21 08:34 Glucose 88 mg/dL (75-100) 06/14/21 08:34 Calcium 9.0 mg/dL (8.4-10.2) 06/14/21 08:34 Assessment and Plan Assessment and plan: Acute hypoxic respiratory failure ESRD HIV-associated nephropathy HIV/AIDS Hypertension History of COVID-19 pneumonia. 06/14/2021. Patient reportedly is not established with any outpatient hemodialysis unit. The patient has been coming to the emergency department for his dialysis. Consult nephrology for arrangements of hemodialysis. Current labs appear to be stable. Continue with HIV medications
[2021-06-14] MEDS ORDERED: ACETAMINOPHEN 325 MG TAB PO PRN (11:25)
[2021-06-14] MEDS ORDERED: oxyCODONE /ACETAMINOPHEN 5-325MG TAB PO PRN (11:25)
[2021-06-14] MEDS ORDERED: MORPHINE 4 MG/1 ML INJ IV PRN (11:25)
[2021-06-14] MEDS ORDERED: ONDANSETRON 4 MG/2 ML INJ IV PRN (11:25)
--- NOTE | 2021-06-14 11:50 | Electrocardiograph Report ---
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
[2021-06-14] MEDS ORDERED: HEPARIN 5,000 UNIT/1 ML VIAL SUB-Q SCH (14:00)
--- NOTE | 2021-06-14 14:30 | Consultation ---
History of Present Illness - Reason for Consult Consult date: 06/14/21 acute renal failure, chronic renal failure, metabolic acidosis Past History Past Medical History: ESRD, HIV/AIDS, hypertension Past Surgical History: No surgical history Social history: no significant social history Family history: no significant family history Medications and Allergies Allergies Allergy/AdvReac Type Severity Reaction Status Date / Time No Known Allergies Allergy Verified 06/14/21 09:15 Home Medications Medication Instructions Recorded Confirmed Last Taken Type Multivit-Min/Folic/Vit K/Lycop 1 tab PO QDAY 04/21/21 06/09/21 06/14/21 08:00 History [Men's Multivitamin Tablet] Cholecalciferol Vit D3 [Vitamin D3 1,000 unit PO QDAY #30 tablet 05/26/21 06/09/21 06/14/21 08:00 Rx 1,000 UNIT TAB] Darunavir [Prezista] 800 mg PO QDAY #14 tablet 05/26/21 06/09/21 06/14/21 08:00 Rx Dolutegravir [Tivicay] 50 mg PO QDAY #14 tablet 05/26/21 06/09/21 06/14/21 08:00 Rx Ritonavir 100 mg PO QDAY #14 tab 05/26/21 06/09/21 06/14/21 08:00 Rx Sodium Bicarbonate 1,300 mg PO TID #90 tablet 05/26/21 06/09/21 06/14/21 08:00 Rx lamiVUDine [Epivir Hbv] 100 mg PO QDAY #14 tab 05/26/21 06/09/21 06/14/21 08:00 Rx Metoprolol Xl [Metoprolol 25 mg PO QDAY #30 tablet 06/07/21 06/09/21 06/14/21 08:00 Rx SUCCINATE ER TAB] Active Meds: Active Medications Acetaminophen (Acetaminophen 325 Mg Tab) 650 mg PO Q4H PRN PRN Reason: Pain MILD(1-3)/Fever >100.5/[place] Heparin Sodium (Porcine) (Heparin 5,000 Unit/1 Ml Vial) 5,000 unit SUB-Q Q8HR [facility] Last Admin: 06/14/21 14:25 Dose: Not Given Morphine Sulfate (Morphine 4 Mg/1 Ml Inj) 2 mg IV Q4H PRN PRN Reason: Pain , Severe (7-10) Ondansetron HCl (Ondansetron 4 Mg/2 Ml Inj) 4 mg IV Q8H PRN PRN Reason: Nausea And Vomiting Oxycodone/Acetaminophen (Oxycodone /Acetaminophen 5-325mg Tab) 1 tab PO Q6H PRN PRN Reason: Pain, Moderate (4-6) Sodium Chloride (Sodium Chloride 0.9% 10 Ml Flush Syringe) 10 ml IV BID S[facility]OS Sodium Chloride (Sodium Chloride 0.9% 10 Ml Flush Syringe) 10 ml IV PRN PRN PRN Reason: LINE FLUSH Exam - Vital Signs Vital signs: Vital Signs Temp Pulse Resp BP Pulse Ox 98.7 F 132 H 16 166/119 100 06/14/21 07:45 06/14/21 07:45 06/14/21 07:45 06/14/21 07:45 06/14/21 07:45 Results - Lab Results 06/14/21 08:34 06/14/21 08:34 Most recent lab results Calcium 9.0 mg/dL (8.4-10.2) 06/14/21 08:34
[2021-06-14 15:47] LABS: Hepatitis B Surface Antigen Non-Reactive (Negative); Hepatitis C Virus Antibody Non-Reactive (NonReactive)
[2021-06-14 18:24] VITALS: BP 156/115
== END 2021-06-14 16:56 | disposition left against medical advice (07) ==
LOC: ED 07:35 → 3A 11:25
PROVIDERS: ADMIT Hospitalist; ATTEND Hospitalist
DX: J96.01 Acute respiratory failure with hypoxia (principal); I12.0 Hypertensive chronic kidney disease with stage 5 chronic kidney disease or end stage renal disease; N18.6 End stage renal disease; N17.9 Acute kidney failure, unspecified; E87.2 Acidosis; E87.70 Fluid overload, unspecified; Z86.16 Personal history of COVID-19; Z99.2 Dependence on renal dialysis; Z79.899 Other long term (current) drug therapy
CPT/HCPCS: 36415; 71045; 80048; 80074; 85025; 93005; 99285; G0257; G0378; 85007

== ENCOUNTER 2021-06-22 05:12 | Inpatient (IN) | payer SELFPAY ==
[2021-06-22 06:19] LABS: Hematocrit 30.8 % (35.5-45.6); Hemoglobin 10.1 gm/dl (11.8-15.2); Mean Corpuscular HGB Conc 33 % (32-34); Mean Corpuscular Volume 100 fl (84-94); Platelet Count 298 K/mm3 (140-440); Red Blood Count 3.08 M/mm3 (3.65-5.03)
[2021-06-22 06:27] LABS: Red Cell Distribution Width 23.7 % (13.2-15.2)
--- NOTE | 2021-06-22 06:35 | Emergency Department Report ---
ED Shortness of Breath HPI - General Chief Complaint: Dyspnea/Respdistress Stated Complaint: SOB/COUGH (LAST DIALYSIS LAST MONDAY) Time Seen by Provider: 06/22/21 06:23 Source: patient, old records reviewed Mode of arrival: Ambulatory Limitations: No Limitations - History of Present Illness Initial Comments: 41-year-old male with a past medical history of HIV, hypertension, end-stage renal disease requiring dialysis presents to the hospital for dialysis. As per medical record review patient has had recent prolonged hospitalizations x2 since March during which time he was diagnosed with COVID pneumonia, new diagnosis of AIDS, and developed end-stage renal disease requiring initiation of dialysis with discharge on June 01. Patient states he has been receiving dialysis x1 month and since discharge she is unable to establish a outpatient dialysis clinic due to lack of insurance. Patient has been repeatedly returning to the hospital to receive his dialysis. Last dialysis was performed here 06/14/2021 (8 days ago). He reports that he is supposed to follow-up with Dr. Ching. Patient also complains of dry cough and shortness of breath. Denies fever. No pain reported as per Dr Ching pt is unassigned at this time, no primary interior design teacher - Related Data Home Medications Medication Instructions Recorded Confirmed Last Taken Multivit-Min/Folic/Vit K/Lycop 1 tab PO QDAY 04/21/21 06/09/21 06/14/21 08:00 [Men's Multivitamin Tablet] Previous Rx's Medication Instructions Recorded Last Taken Type Cholecalciferol Vit D3 [Vitamin D3 1,000 unit PO QDAY #30 tablet 05/26/21 06/14/21 08:00 Rx 1,000 UNIT TAB] Darunavir [Prezista] 800 mg PO QDAY #14 tablet 05/26/21 06/14/21 08:00 Rx Dolutegravir [Tivicay] 50 mg PO QDAY #14 tablet 05/26/21 06/14/21 08:00 Rx Ritonavir 100 mg PO QDAY #14 tab 05/26/21 06/14/21 08:00 Rx Sodium Bicarbonate 1,300 mg PO TID #90 tablet 05/26/21 06/14/21 08:00 Rx lamiVUDine [Epivir Hbv] 100 mg PO QDAY #14 tab 05/26/21 06/14/21 08:00 Rx Metoprolol Xl [Metoprolol 25 mg PO QDAY #30 tablet 06/07/21 06/14/21 08:00 Rx SUCCINATE ER TAB] Allergies Allergy/AdvReac Type Severity Reaction Status Date / Time No Known Allergies Allergy Verified 06/14/21 09:15 ED Review of Systems ROS: Stated complaint: SOB/COUGH (LAST DIALYSIS LAST MONDAY) Other details as noted in HPI Comment: All other systems reviewed and negative ED Past Medical Hx - Past Medical History Hx Hypertension: Yes Hx Renal Disease: Yes (On dialysis) Hx HIV: Yes - Surgical History Additional Surgical History: Right chest Vas-Cath - Social History Smoking Status: Never Smoker - Medications Home Medications: Home Medications Medication Instructions Recorded Confirmed Last Taken Type Multivit-Min/Folic/Vit K/Lycop 1 tab PO QDAY 04/21/21 06/09/21 06/14/21 08:00 History [Men's Multivitamin Tablet] Cholecalciferol Vit D3 [Vitamin D3 1,000 unit PO QDAY #30 tablet 05/26/21 06/09/21 06/14/21 08:00 Rx 1,000 UNIT TAB] Darunavir [Prezista] 800 mg PO QDAY #14 tablet 05/26/21 06/09/21 06/14/21 08:00 Rx Dolutegravir [Tivicay] 50 mg PO QDAY #14 tablet 05/26/21 06/09/21 06/14/21 08:00 Rx Ritonavir 100 mg PO QDAY #14 tab 05/26/21 06/09/21 06/14/21 08:00 Rx Sodium Bicarbonate 1,300 mg PO TID #90 tablet 05/26/21 06/09/21 06/14/21 08:00 Rx lamiVUDine [Epivir Hbv] 100 mg PO QDAY #14 tab 05/26/21 06/09/21 06/14/21 08:00 Rx Metoprolol Xl [Metoprolol 25 mg PO QDAY #30 tablet 06/07/21 06/09/21 06/14/21 08:00 Rx SUCCINATE ER TAB] ED Physical Exam - General Limitations: No Limitations - Other Other exam information: General: No acute distress Head: Atraumatic Eyes: normal appearance ENT: Moist mucous membranes Neck: Normal appearance, no midline tenderness Chest: Clear to auscultation bilaterally, dry cough noted CV: Tachycardic regular rhythm Abdomen: Soft, normal bowel sounds, nontender, nondistended, no rebound or guarding Back: Normal inspection Extremity: Normal inspection, full range of motion, no calf tenderness or leg edema Neuro: Alert O x 3, no facial asymmetry, speech clear, no gross motor sensory deficit Psych: Appropriate behavior Skin: No rash ED Course Vital Signs 06/22/21 05:21 Temperature 98.8 F Pulse Rate 141 H Respiratory 18 Rate Blood Pressure 145/115 O2 Sat by Pulse 96 Oximetry - Consultations Consultation #1: 06/22/21 07:07 Case d/w DR Ching who states pt is unassigned ED Medical Decision Making - Lab Data Result diagrams: 06/22/21 05:59 06/22/21 05:59 - EKG Data -: EKG Interpreted by Me EKG shows normal: sinus rhythm, ST-T waves (no stemi) Rate: tachycardia (121) - Radiology Data Radiology results: report reviewed CHEST 1 VIEW INDICATION / CLINICAL INFORMATION: sob tachycardia. COMPARISON: Chest x-ray 06/14/2021 FINDINGS: SUPPORT DEVICES: Right-sided hemodialysis catheter is stable. HEART / MEDIASTINUM: No significant abnormality. LUNGS / PLEURA: The lungs are clear. No pneumothorax. ADDITIONAL FINDINGS: No significant additional findings. IMPRESSION: 1. No active cardiopulmonary disease. - Medical Decision Making 41-year-old male presents to the hospital once again requesting dialysis. Patient complains of shortness of breath however, no signs of pulmonary edema hypoxia. Case discussed with Dr. Ching who recommends admission for dialysis since he has not received dialysis and 1 week and does not have a primary interior design teacher or dialysis clinic. Patient presents with tachycardia with history of same in the past. I am unclear of patient's previous cardiac work-up. Patient will be admitted to the hospital service for further treatment. Thyroid test pending Critical care attestation.: If time is entered above; I have spent that time in minutes in the direct care of this critically ill patient, excluding procedure time. ED Disposition Clinical Impression: ESRD needing dialysis, Shortness of breath, HIV (human immunodeficiency virus infection), Hypertension, Sinus tachycardia Disposition: ADMITTED INPATIENT Is pt being admited?: Yes Condition: Stable Instructions: Hypertension (ED) Time of Disposition: 07:10 (Dr. Rashid/hosptialist)
[2021-06-22 06:44] LABS: Albumin 3.2 g/dL (3.9-5)
--- NOTE | 2021-06-22 06:46 | XRay Report ---
CHEST 1 VIEW INDICATION / CLINICAL INFORMATION: sob tachycardia. COMPARISON: Chest x-ray 06/14/2021 FINDINGS: SUPPORT DEVICES: Right-sided hemodialysis catheter is stable. HEART / MEDIASTINUM: No significant abnormality. LUNGS / PLEURA: The lungs are clear. No pneumothorax. ADDITIONAL FINDINGS: No significant additional findings. IMPRESSION: 1. No active cardiopulmonary disease. Signer Name: Cesar Callahan II, MD Signed: 06/22/2021 6:41 AM Workstation Name: [id number]
--- NOTE | 2021-06-22 07:34 | History and Physical Report ---
History of Present Illness Date of examination: 06/22/21 Date of admission: 06/22/21 Chief complaint: shortness of breath History of present illness: Patient is a 41-year-old male with past medical history of CKD on hemodialysis, HIV/AIDS, hypertension who presents to the hospital with complaints of shortness of breath states he has not been dialyzed in 1 week. He is requesting for dialysis. He denies any chest pain nausea vomiting or diarrhea during my discussion he reported that he is anxious although has no prior history of anxiety. States that he has not been able to follow-up with any primary care physician due to lack of insurance and unemployed as a result could not afford the physician that he was sent to. He was probably here in the hospital and was dialyzed but left AGAINST MEDICAL ADVICE due to some moderate family issues. At that time he was given recommendation to follow at [facility] for HIV management and also for hemodialysis he has not been able to do both. He states that he was told that he does not live in [facility] and as a result cannot get hemodialysis at [facility]. He denies any orthopnea PND or swelling. In the ER he was significantly hypertensive with diastolic in the 110s heart rate in the 140s. He tells me that he still has his medications but only has a few left. I have discussed with the air force pilot seen him who feels that the patient may have underlying CKD due to improvement in his GFR and also reports that the last time he had ultrafiltration and not hemodialysis as a result has not really had dialysis in 2 weeks and does not show any evidence of pulmonary edema. He also feels that the patient may be in the recovery phase and will go ahead with a 24- hour urine collection and hold off on dialysis at this time. Patient has a right-sided dialysis catheter Past History Past Medical History: hypertension, hyperlipidemia Social history: Family history: no significant family history Medications and Allergies Allergies Allergy/AdvReac Type Severity Reaction Status Date / Time No Known Allergies Allergy Verified 06/14/21 09:15 Home Medications Medication Instructions Recorded Confirmed Last Taken Type Multivit-Min/Folic/Vit K/Lycop 1 tab PO QDAY 04/21/21 06/09/21 06/14/21 08:00 History [Men's Multivitamin Tablet] Cholecalciferol Vit D3 [Vitamin D3 1,000 unit PO QDAY #30 tablet 05/26/21 06/09/21 06/14/21 08:00 Rx 1,000 UNIT TAB] Darunavir [Prezista] 800 mg PO QDAY #14 tablet 05/26/21 06/09/21 06/14/21 08:00 Rx Dolutegravir [Tivicay] 50 mg PO QDAY #14 tablet 05/26/21 06/09/21 06/14/21 08:00 Rx Ritonavir 100 mg PO QDAY #14 tab 05/26/21 06/09/21 06/14/21 08:00 Rx Sodium Bicarbonate 1,300 mg PO TID #90 tablet 05/26/21 06/09/21 06/14/21 08:00 Rx lamiVUDine [Epivir Hbv] 100 mg PO QDAY #14 tab 05/26/21 06/09/21 06/14/21 08:00 Rx Metoprolol Xl [Metoprolol 25 mg PO QDAY #30 tablet 06/07/21 06/09/21 06/14/21 08:00 Rx SUCCINATE ER TAB] Active Meds: Active Medications Acetaminophen (Acetaminophen 325 Mg Tab) 650 mg PO Q4H PRN PRN Reason: Pain MILD(1-3)/Fever >100.5/[place] Albuterol (Albuterol 2.5 Mg/3 Ml Nebu) 2.5 mg IH Q3HRT PRN PRN Reason: Shortness Of Breath Cholecalciferol (Cholecalciferol (Vit D3) 1000 Unit (25 Mcg) Tab) 1,000 unit PO QDAY [facility] Darunavir (Darunavir 800 Mg Tab) 800 mg PO QDAY [facility] Dolutegravir Sodium (Dolutegravir 50 Mg Tab) 50 mg PO QDAY [facility] Metoprolol Succinate (Metoprolol Succinate Xl 25 Mg Tab) 25 mg PO QDAY [facility] Miscellaneous Medication (Lamivudine [Epivir Hbv]) 100 mg PO QDAY [facility] Miscellaneous Medication (Multivit-Min/Folic/Vit K/Lycop [Men's Multivitamin Tablet]) 1 tab PO QDAY [facility] Morphine Sulfate (Morphine 2 Mg/1 Ml Inj) 2 mg IV Q4H PRN PRN Reason: Pain, Moderate (4-6) Naloxone HCl (Naloxone 0.4 Mg/1 Ml Inj) 0.1 mg IV Q2MIN PRN PRN Reason: Res Rate </= 8 or 02 SAT < 92% Ondansetron HCl (Ondansetron 4 Mg/2 Ml Inj) 4 mg IV Q4H PRN PRN Reason: Nausea And Vomiting Ritonavir (Ritonavir 100 Mg Tab) 100 mg PO QDAY [facility] Senna (Sennosides 8.6 Mg Tab) 8.6 mg PO Q12HR [facility] Sodium Bicarbonate (Sodium Bicarbonate 650 Mg Tab) 1,300 mg PO TID [facility] Sodium Chloride (Sodium Chloride 0.9% 10 Ml Flush Syringe) 10 ml IV BID [facility] Sodium Chloride (Sodium Chloride 0.9% 10 Ml Flush Syringe) 10 ml IV PRN PRN PRN Reason: LINE FLUSH Review of Systems All systems: negative Cardiovascular: palpitations Respiratory: shortness of breath Exam - Physical Exam Narrative exam: VITAL SIGNS: Reviewed. GENERAL: The patient appears normally developed, Vital signs as documented. HEAD: No signs of head trauma. EYES: Pupils are equal. Extraocular motions intact. EARS: Hearing grossly intact. MOUTH: Oropharynx is normal. NECK: No adenopathy, no JVD. CHEST: Chest with clear breath sounds bilaterally. No wheezes, rales, or rhonchi. CARDIAC: Tachycardia with regular rhythm. S1 and S2, without murmurs, gallops, or rubs. VASCULAR: No Edema. Peripheral pulses normal and equal in all extremities. ABDOMEN: Soft, non tender and non distended. No rebound or guarding, and no masses palpated. Bowel Sounds normal. MUSCULOSKELETAL: Good range of motion of all major joints. Extremities without clubbing, cyanosis or edema. NEUROLOGIC EXAM: Alert and oriented x 3 No focal sensory or strength deficits. Speech normal. Follows commands. PSYCHIATRIC: Mood normal. SKIN: detail exam as documented in skin assessment - Constitutional Vitals: Temp Pulse Resp BP Pulse Ox 98.8 F 141 H 18 145/115 96 06/22/21 05:21 06/22/21 05:21 06/22/21 05:21 06/22/21 05:21 06/22/21 05:21 Results - Labs CBC & Chem 7: 06/22/21 05:59 06/22/21 05:59 Labs: Laboratory Last Values WBC 6.7 K/mm3 (4.5-11.0) 06/22/21 05:59 RBC 3.08 M/mm3 (3.65-5.03) L 06/22/21 05:59 Hgb 10.1 gm/dl (11.8-15.2) L 06/22/21 05:59 Hct 30.8 % (35.5-45.6) L 06/22/21 05:59 MCV 100 fl (84-94) H 06/22/21 05:59 MCH 33 pg (28-32) H 06/22/21 05:59 MCHC 33 % (32-34) 06/22/21 05:59 RDW 23.7 % (13.2-15.2) H 06/22/21 05:59 Plt Count 298 K/mm3 (140-440) 06/22/21 05:59 Sodium 133 mmol/L (137-145) L 06/22/21 05:59 Potassium 4.1 mmol/L (3.6-5.0) 06/22/21 05:59 Chloride 99.7 mmol/L (98-107) 06/22/21 05:59 Carbon Dioxide 17 mmol/L (22-30) L 06/22/21 05:59 Anion Gap 20 mmol/L 06/22/21 05:59 BUN 36 mg/dL (9-20) H 06/22/21 05:59 Creatinine 3.0 mg/dL (0.8-1.3) H 06/22/21 05:59 Estimated GFR 28 ml/min 06/22/21 05:59 BUN/Creatinine Ratio 12 % 06/22/21 05:59 Glucose 104 mg/dL (75-100) H 06/22/21 05:59 Calcium 9.0 mg/dL (8.4-10.2) 06/22/21 05:59 Total Bilirubin 0.20 mg/dL (0.1-1.2) 06/22/21 05:59 AST 27 units/L (5-40) 06/22/21 05:59 ALT 20 units/L (7-56) 06/22/21 05:59 Alkaline Phosphatase 85 units/L (35-129) 06/22/21 05:59 Total Protein 8.1 g/dL (6.3-8.2) 06/22/21 05:59 Albumin 3.2 g/dL (3.9-5) L 06/22/21 05:59 Albumin/Globulin Ratio 0.7 % 06/22/21 05:59 Assessment and Plan Assessment and plan: Patient is a 41-year-old male with past medical history of CKD on hemodialysis, HIV/AIDS, hypertension who presents to the hospital with complaints of shortness of breath states he has not been dialyzed in 1 week. He is requesting for dialysis. He denies any chest pain nausea vomiting or diarrhea during my discussion he reported that he is anxious although has no prior history of anxiety. States that he has not been able to follow-up with any primary care physician due to lack of insurance and unemployed as a result could not afford the physician that he was sent to. He was probably here in the hospital and was dialyzed but left AGAINST MEDICAL ADVICE due to some moderate family issues. At that time he was given recommendation to follow at [facility] for HIV management and also for hemodialysis he has not been able to do both. He states that he was told that he does not live in [facility] and as a result cannot get hemodialysis at [facility]. He denies any orthopnea PND or swelling. In the ER he was significantly hypertensive with diastolic in the 110s heart rate in the 140s. He tells me that he still has his medications but only has a few left. I have discussed with the air force pilot seen him who feels that the patient may have underlying CKD due to improvement in his GFR and also reports that the last time he had ultrafiltration and not hemodialysis as a result has not really had dialysis in 2 weeks and does not show any evidence of pulmonary edema. He also feels that the patient may be in the recovery phase and will go ahead with a 24- hour urine collection and hold off on dialysis at this time. Patient has a right-sided dialysis catheter CXR: No acute pathology Acute hypoxic respiratory failure ESRD/CKD Sinus tachycardia HIV-associated nephropathy Metabolic Acidosis Anemia of chronic disease HIV/AIDS Hypertension urgency History of COVID-19 pneumonia. PLAN Admit medsurg consult Erecting Engineer Daniel RAE for anxiety 24 HR urine collection per Erecting Engineer (I have discussed with the air force pilot seen him who feels that the patient may have underlying CKD due to improvement in his GFR and also reports that the last time he had ultrafiltration and not he modialysis as a result has not really had dialysis in 2 weeks and does not show any evidence of pulmonary edema. He also feels that the patient may be in the recovery phase and will go ahead with a 24-hour urine collection and hold off on dialysis at this time. Patient has a right-sided dialysis catheter) Start home medications including Metoprolol and add Hydralazine if remains uncontrolled Counselling provided to the patient and will get case management to give resources for [facility] Further evaluation based on clinical progress. DVT/GI PROPHY Advance Directives: Yes Plan of care discussed with patient/family: Yes
[2021-06-22 07:40] LABS: Anisocytosis 2+; Basophils % (Manual) 0 % (0.0-1.8); Platelet Estimate Consistent w Auto; Total Cells Counted 100
[2021-06-22] MEDS ORDERED: MORPHINE 2 MG/1 ML INJ IV PRN (08:00)
[2021-06-22] MEDS ORDERED: ALBUTEROL 2.5 MG/3 ML NEBU IH PRN (08:00)
[2021-06-22] MEDS ORDERED: ONDANSETRON 4 MG/2 ML INJ IV PRN (08:00)
[2021-06-22] MEDS ORDERED: NALOXONE 0.4 MG/1 ML INJ IV PRN (08:00)
[2021-06-22] MEDS ORDERED: hydrALAZINE 20 MG/1 ML INJ IV PRN (08:00)
[2021-06-22 08:24] LABS: Free T4 (Free Thyroxine) 0.72 ng/dL (0.76-1.46)
[2021-06-22] MEDS: hydrALAZINE 25 MG TAB PO SCH ×3 (08:42→21:46)
[2021-06-22] MEDS ORDERED: METOPROLOL SUCCINATE XL 25 MG TAB PO SCH (10:00)
[2021-06-22] MEDS ORDERED: LYCOP PO SCH (10:00)
[2021-06-22] MEDS ORDERED: FOLIC PO SCH (10:00)
[2021-06-22] MEDS ORDERED: LAMIVUDINE 100 MG PO SCH (10:00)
[2021-06-22] MEDS ORDERED: [UNRECOGNIZED DRUG - OTHER] PO SCH (10:00)
[2021-06-22] MEDS ORDERED: MULTIVIT MIN PO SCH (10:00)
[2021-06-22] MEDS ORDERED: VIT K PO SCH (10:00)
[2021-06-22] MEDS: lamiVUDine 50 MG/5 ML ORAL LIQD PO SCH (10:06)
[2021-06-22] MEDS: SODIUM BICARBONATE 650 MG TAB PO SCH ×3 (10:06→21:45)
[2021-06-22] MEDS: SENNOSIDES 8.6 MG TAB PO SCH ×2 (10:07→21:45)
[2021-06-22] MEDS: DOLUTEGRAVIR 50 MG TAB PO SCH (10:07)
[2021-06-22] MEDS: DARUNAVIR 800 MG TAB PO SCH (10:07)
[2021-06-22] MEDS: RITONAVIR 100 MG TAB PO SCH (10:07)
[2021-06-22] MEDS: MULTIVITAMINS ,THERAPEUTIC TAB PO SCH (10:09)
--- NOTE | 2021-06-22 14:14 | Consultation ---
History of Present Illness - Reason for Consult Consult date: 06/22/21 acute renal failure, chronic renal failure - History of Present Illness The patient is a 41 YO male with history of Hypertension, Anemia, HIV and BILLIE/CKD who presented to [facility] ED 06/22 for hemodialysis need. Patient was star emely on hemodialysis on 05/11 for BILLIE / ?ESRD. He is currently not established with any outpatient dialysis unit and has been coming to ED for dialysis. He c/o some sob and cough. He was last dialyzed (UF only) on 06/14. Labs noted. Nephrology was consulted for further evaluation and treatment of BILLIE. Past History Past Medical History: HIV/AIDS, hypertension, hyperlipidemia, renal failure Social history: Family history: no significant family history Medications and Allergies Allergies Allergy/AdvReac Type Severity Reaction Status Date / Time No Known Allergies Allergy Verified 06/14/21 09:15 Home Medications Medication Instructions Recorded Confirmed Last Taken Type Multivit-Min/Folic/Vit K/Lycop 1 tab PO QDAY 04/21/21 06/09/21 06/14/21 08:00 History [Men's Multivitamin Tablet] Cholecalciferol Vit D3 [Vitamin D3 1,000 unit PO QDAY #30 tablet 05/26/21 06/22/21 06/14/21 08:00 Rx 1,000 UNIT TAB] Darunavir [Prezista] 800 mg PO QDAY #14 tablet 05/26/21 06/22/21 06/14/21 08:00 Rx Dolutegravir [Tivicay] 50 mg PO QDAY #14 tablet 05/26/21 06/22/21 06/14/21 08:00 Rx Ritonavir 100 mg PO QDAY #14 tab 05/26/21 06/22/21 06/14/21 08:00 Rx Sodium Bicarbonate 1,300 mg PO TID #90 tablet 05/26/21 06/22/21 06/14/21 08:00 Rx lamiVUDine [Epivir Hbv] 100 mg PO QDAY #14 tab 05/26/21 06/22/21 06/14/21 08:00 Rx Metoprolol Xl [Metoprolol 25 mg PO QDAY #30 tablet 06/07/21 06/22/21 06/14/21 0 8:00 Rx SUCCINATE ER TAB] Active Meds: Active Medications Acetaminophen (Acetaminophen 325 Mg Tab) 650 mg PO Q4H PRN PRN Reason: Pain MILD(1-3)/Fever >100.5/[place] Albuterol (Albuterol 2.5 Mg/3 Ml Nebu) 2.5 mg IH Q3HRT PRN PRN Reason: Shortness Of Breath Albuterol/Ipratropium (Ipratropium/Albuterol Sulfate 3 Ml Ampul.Neb) 1 ampul IH Q6HRT [facility] Alprazolam (Alprazolam 0.25 Mg Tab) 0.25 mg PO Q12HR PRN PRN Reason: Anxiety Cholecalciferol (Cholecalciferol (Vit D3) 1000 Unit (25 Mcg) Tab) 1,000 unit PO QDAY [facility] Darunavir (Darunavir 800 Mg Tab) 800 mg PO QDAY [facility] Last Admin: 06/22/21 10:07 Dose: 800 mg Dolutegravir Sodium (Dolutegravir 50 Mg Tab) 50 mg PO QDAY [facility] Last Admin: 06/22/21 10:07 Dose: 50 mg Hydralazine HCl (Hydralazine 20 Mg/1 Ml Inj) 10 mg IV Q4H PRN PRN Reason: Hypertension Hydralazine HCl (Hydralazine 25 Mg Tab) 25 mg PO Q8HR [facility] Last Admin: 06/22/21 08:42 Dose: 25 mg Lamivudine (Lamivudine 50 Mg/5 Ml Oral Liqd) 100 mg PO DAILY [facility] Last Admin: 06/22/21 10:06 Dose: 100 mg Metoprolol Succinate (Metoprolol Succinate Xl 25 Mg Tab) 25 mg PO QDAY [facility] Last Admin: 06/22/21 10:06 Dose: 25 mg Morphine Sulfate (Morphine 2 Mg/1 Ml Inj) 2 mg IV Q4H PRN PRN Reason: Pain, Moderate (4-6) Multivitamins (Multivitamins ,Therapeutic Tab) 1 each PO DAILY [facility] Last Admin: 06/22/21 10:09 Dose: 1 each Naloxone HCl (Naloxone 0.4 Mg/1 Ml Inj) 0.1 mg IV Q2MIN PRN PRN Reason: Res Rate </= 8 or 02 SAT < 92% Ondansetron HCl (Ondansetron 4 Mg/2 Ml Inj) 4 mg IV Q4H PRN PRN Reason: Nausea And Vomiting Ritonavir (Ritonavir 100 Mg Tab) 100 mg PO QDAY [facility] Last Admin: 06/22/21 10:07 Dose: 100 mg Senna (Sennosides 8.6 Mg Tab) 8.6 mg PO Q12HR [facility] Last Admin: 06/22/21 10:07 Dose: Not Given Sodium Bicarbonate (Sodium Bicarbonate 650 Mg Tab) 1,300 mg PO TID [facility] Last Admin: 06/22/21 10:06 Dose: 1,300 mg Sodium Chloride (Sodium Chloride 0.9% 10 Ml Flush Syringe) 10 ml IV BID [facility] Last Admin: 06/22/21 10:07 Dose: 10 ml Sodium Chloride (Sodium Chloride 0.9% 10 Ml Flush Syringe) 10 ml IV PRN PRN PRN Reason: LINE FLUSH Review of Systems All systems: negative Exam - Vital Signs Vital signs: Vital Signs Temp Pulse Resp BP Pulse Ox 98.8 F 141 H 18 145/115 96 06/22/21 05:21 06/22/21 05:21 06/22/21 05:21 06/22/21 05:21 06/22/21 05:21 Results - Lab Results 06/22/21 05:59 06/22/21 05:59 Most recent lab results Calcium 9.0 mg/dL (8.4-10.2) 06/22/21 05:59 Assessment and Plan 1. CKD-4: Patient was started on dialysis on 05/11. Last dialyzed on 06/09 and UF on 06/14. Renal function has improved to some extend. No need for hemodialysis at this time. 24-hr urine for creatinine clearance ordered. Cystatin C ordered. Recommend to remove the dialysis catheter. 2. FEN: Metabolic acidosis, Sod bicarb, monitor. Monitor lytes and volume status. 3. Acute respiratory distress, POA: CXR clear. 4. Sinus tachycardia: chronic. 5. HIV. 6. Hypertension: Continue home BP meds. Monitor BP. 7. Macrocytic Anemia, POA: Chronic. Monitor. D/w . Subjective: Patient was seen and examined at the bedside. Examination: General appearance: well-developed, appears stated age, emaciated, no distress HEENT: atraumatic, DIANE Neck: trachea midline Respiratory: ctab Heart: S1S2, no murmur Abdomen: soft, bowel sounds heard, NT Integumentary: no obvious rash Neurologic: AO, able to move extremities Ext: no edema Hemodialysis access: R IJ tunnel catheter
[2021-06-22] MEDS: CHOLECALCIFEROL (VIT D3) 1000 UNIT (25 mcg) TAB PO SCH (14:21)
[2021-06-22] MEDS: IPRATROPIUM/ALBUTEROL SULFATE 3 ML AMPUL.NEB IH SCH ×2 (14:33→19:42)
[2021-06-22] MEDS ORDERED: guaiFENesin 100 MG/5 ML ORAL LIQD PO PRN (22:06)
[2021-06-22] MEDS: ALPRAZolam 0.25 MG TAB PO PRN (22:20)
[2021-06-23] MEDS: IPRATROPIUM/ALBUTEROL SULFATE 3 ML AMPUL.NEB IH SCH (02:30)
[2021-06-23 05:52] LABS: Hematocrit 25.5 % (35.5-45.6); Hemoglobin 8.3 gm/dl (11.8-15.2); Mean Corpuscular HGB Conc 33 % (32-34); Mean Corpuscular Volume 99 fl (84-94); Platelet Count 265 K/mm3 (140-440); Red Blood Count 2.57 M/mm3 (3.65-5.03)
[2021-06-23 05:57] LABS: Red Cell Distribution Width 22.7 % (13.2-15.2)
[2021-06-23] MEDS: hydrALAZINE 25 MG TAB PO SCH (06:03)
[2021-06-23] MEDS: ACETAMINOPHEN 325 MG TAB PO PRN (06:04)
[2021-06-23 06:08] LABS: Calcium 8.5 mg/dL (8.4-10.2)
[2021-06-23 06:45] LABS: Basophils % (Manual) 0 % (0.0-1.8); Total Cells Counted 100
[2021-06-23 06:46] LABS: Anisocytosis 1+; Ovalocytes Rare; Platelet Estimate Consistent w Auto; Tear Drop Cells Rare
[2021-06-23] MEDS ORDERED: ALBUTEROL 2.5 MG/3 ML NEBU IH PRN (07:43)
[2021-06-23] MEDS ORDERED: METOPROLOL SUCCINATE XL 25 MG TAB PO SCH (08:18)
[2021-06-23] MEDS: SODIUM BICARBONATE 650 MG TAB PO SCH ×3 (08:34→22:09)
[2021-06-23] MEDS ORDERED: METOPROLOL SUCCINATE XL 100 MG TAB PO SCH (09:00)
[2021-06-23] MEDS: lamiVUDine 50 MG/5 ML ORAL LIQD PO SCH (09:12)
[2021-06-23] MEDS: RITONAVIR 100 MG TAB PO SCH (09:13)
[2021-06-23] MEDS: SENNOSIDES 8.6 MG TAB PO SCH ×2 (09:17→22:10)
[2021-06-23] MEDS: DOLUTEGRAVIR 50 MG TAB PO SCH (09:18)
[2021-06-23] MEDS: MULTIVITAMINS ,THERAPEUTIC TAB PO SCH (09:18)
[2021-06-23] MEDS: CHOLECALCIFEROL (VIT D3) 1000 UNIT (25 mcg) TAB PO SCH (09:18)
--- NOTE | 2021-06-23 10:25 | Progress Note ---
Assessment and Plan 1. CKD-4: Patient was started on dialysis on 05/11. Last dialyzed on 06/09 and UF on 06/14. Renal function has improved to some extend. No need for hemodialysis at this time. 24-hr urine for creatinine clearance about 24. Cystatin C ordered. Recommend to remove the dialysis catheter, Vascular consulted. 2. FEN: Metabolic acidosis, Sod bicarb, monitor. Replete K. Monitor lytes and volume status. 3. Acute respiratory distress, POA: CXR clear. 4. Sinus tachycardia: Chronic. Increased Metoprolol. 5. HIV. 6. Hypertension: Continue home BP meds. Monitor BP. 7. Macrocytic Anemia, POA: Chronic. Monitor. Will sign off. Subjective: Patient was seen and examined at the bedside. Examination: General appearance: well-developed, appears stated age, emaciated, no distress HEENT: atraumatic, DIANE Neck: trachea midline Respiratory: ctab Heart: S1S2, no murmur Abdomen: soft, bowel sounds heard, NT Integumentary: no obvious rash Neurologic: AO, able to move extremities Ext: no edema Hemodialysis access: R IJ tunnel catheter Subjective Date of service: 06/23/21 Objective - Vital Signs Vital signs: Vital Signs - 12hr 06/23/21 06/23/21 06/23/21 02:00 05:28 06:03 Temperature 100.3 F H Pulse Rate 127 H 127 H Pulse Rate [ 99 H Bilateral] Respiratory 19 Rate Respiratory 18 Rate [Bilateral ] Blood Pressure 117/81 117/81 O2 Sat by Pulse 100 Oximetry 06/23/21 06/23/21 07:39 09:26 Temperature Pulse Rate Pulse Rate [ Bilateral] Respiratory Rate Respiratory Rate [Bilateral ] Blood Pressure O2 Sat by Pulse 99 100 Oximetry - Lab 06/23/21 05:33 06/23/21 05:33 Most recent lab results Calcium 8.5 mg/dL (8.4-10.2) 06/23/21 05:33 Phosphorus 4.20 mg/dL (2.5-4.5) 06/23/21 05:33 Medications & Allergies - Medications Allergies/Adverse Reactions: Allergies No Known Allergies Allergy (Verified 06/14/21 09:15) Home Medications: Home Medications Medication Instructions Recorded Confirmed Last Taken Type Multivit-Min/Folic/Vit K/Lycop 1 tab PO QDAY 04/21/21 06/09/21 06/14/21 08:00 History [Men's Multivitamin Tablet] Cholecalciferol Vit D3 [Vitamin D3 1,000 unit PO QDAY #30 tablet 05/26/2106/14/21 08:00 Rx 1,000 UNIT TAB] Darunavir [Prezista] 800 mg PO QDAY #14 tablet 05/26/21 06/22/21 06/14/21 08:00 Rx Dolutegravir [Tivicay] 50 mg PO QDAY #14 tablet 05/26/21 06/22/21 06/14/21 08:00 Rx Ritonavir 100 mg PO QDAY #14 tab 05/26/21 06/22/21 06/14/21 08:00 Rx Sodium Bicarbonate 1,300 mg PO TID #90 tablet 05/26/21 06/22/21 06/14/21 08:00 Rx lamiVUDine [Epivir Hbv] 100 mg PO QDAY #14 tab 05/26/21 06/22/21 06/14/21 08:00 Rx Metoprolol Xl [Metoprolol 25 mg PO QDAY #30 tablet 06/07/21 06/22/21 06/14/21 08:00 Rx SUCCINATE ER TAB] Active Medications: Generic Name Dose Route Start Last Admin Trade Name Freq PRN Reason Stop Dose Admin Acetaminophen 650 mg 06/22/21 08:00 06/23/21 06:04 Acetaminophen 325 Mg Tab PO 650 mg Q4H PRN Administration Pain MILD(1-3)/Fever >100.5/LANGLEY Albuterol 2.5 mg 06/22/21 08:00 Albuterol 2.5 Mg/3 Ml Nebu IH Q3HRT PRN Shortness Of Breath Alprazolam 0.25 mg 06/22/21 08:39 06/22/21 22:20 Alprazolam 0.25 Mg Tab PO 0.25 mg Q12HR PRN Administration Anxiety Cholecalciferol 1,000 unit 06/22/21 10:00 06/23/21 09:18 Cholecalciferol (Vit D3) 1000 Unit (25 Mcg) Tab PO 1,000 unit QDAY SANTOS Administration Darunavir 800 mg 06/22/21 10:00 06/22/21 10:07 Darunavir 800 Mg Tab PO 800 mg QDAY SANTOS Administration Dolutegravir Sodium 50 mg 06/22/21 10:00 06/23/21 09:18 Dolutegravir 50 Mg Tab PO 50 mg QDAY SANTOS Administration Guaifenesin 200 mg 06/22/21 22:06 06/22/21 22:21 Guaifenesin 100 Mg/5 Ml Oral Liqd PO 200 mg Q6H PRN Administration Cough Hydralazine HCl 10 mg 06/22/21 08:00 Hydralazine 20 Mg/1 Ml Inj IV Q4H PRN Hypertension Lamivudine 100 mg 06/22/21 10:00 06/23/21 09:12 Lamivudine 50 Mg/5 Ml Oral Liqd PO 100 mg DAILY SANTOS Administration Metoprolol Succinate 100 mg 06/23/21 09:00 06/23/21 09:12 Metoprolol Succinate Xl 100 Mg Tab PO 100 mg QDAY SANTOS Administration Morphine Sulfate 2 mg 06/22/21 08:00 Morphine 2 Mg/1 Ml Inj IV Q4H PRN Pain, Moderate (4-6) Multivitamins 1 each 06/22/21 10:00 06/23/21 09:18 Multivitamins ,Therapeutic Tab PO 1 each DAILY SANTOS Administration Naloxone HCl 0.1 mg 06/22/21 08:00 Naloxone 0.4 Mg/1 Ml Inj IV Q2MIN PRN Res Rate </= 8 or 02 SAT < 92% Ondansetron HCl 4 mg 06/22/21 08:00 Ondansetron 4 Mg/2 Ml Inj IV Q4H PRN Nausea And Vomiting Ritonavir 100 mg 06/22/21 10:00 06/23/21 09:13 Ritonavir 100 Mg Tab PO 100 mg QDAY SANTOS Administration Senna 8.6 mg 06/22/21 10:00 06/23/21 09:17 Sennosides 8.6 Mg Tab PO 8.6 mg Q12HR SANTOS Administration Sodium Bicarbonate 1,300 mg 06/22/21 08:00 06/23/21 08:34 Sodium Bicarbonate 650 Mg Tab PO 1,300 mg TID SANTOS Administration Sodium Chloride 10 ml 06/22/21 10:00 06/23/21 09:18 Sodium Chloride 0.9% 10 Ml Flush Syringe IV 10 ml BID SANTOS Administration Sodium Chloride 10 ml 06/22/21 08:00 Sodium Chloride 0.9% 10 Ml Flush Syringe IV PRN PRN LINE FLUSH
--- NOTE | 2021-06-23 11:06 | Progress Note ---
Assessment and Plan Assessment and plan: Acute hypoxic respiratory failure ESRD/CKD Sinus tachycardia HIV-associated nephropathy Metabolic Acidosis Anemia of chronic disease HIV/AIDS Hypertension urgency History of COVID-19 pneumonia. History Interval history: No acute events overnight. Patient has no complaints at this time. He is eager to leave. Hospitalist Physical - Physical exam Narrative exam: GENERAL: Thin male. In no acute distress. HEENT: Normocephalic. Atraumatic. NECK: Supple. CHEST/LUNGS: Right-sided permacath. CTAB on room air HEART/CARDIOVASCULAR: Tachycardic. No murmur, rubs or gallops appreciated. ABDOMEN: +BS. NT/ND. SKIN: No rashes noted. NEURO: No focal motor deficit. Follows all commands. MUSCULOSKELETAL: No joint effusion EXTREMITIES: No cyanosis, clubbing or edema. PSYCH: Cooperative. - Constitutional Vitals: Temp Pulse Resp BP Pulse Ox 100.3 F H 127 H 19 117/81 100 06/23/21 05:28 06/23/21 06:03 06/23/21 05:28 06/23/21 06:03 06/23/21 09:26 Results - Labs CBC & Chem 7: 06/23/21 05:33 06/23/21 05:33 Labs: Laboratory Last Values WBC 4.7 K/mm3 (4.5-11.0) 06/23/21 05:33 RBC 2.57 M/mm3 (3.65-5.03) L 06/23/21 05:33 Hgb 8.3 gm/dl (11.8-15.2) L 06/23/21 05:33 Hct 25.5 % (35.5-45.6) L 06/23/21 05:33 MCV 99 fl (84-94) H 06/23/21 05:33 MCH 32 pg (28-32) 06/23/21 05:33 MCHC 33 % (32-34) 06/23/21 05:33 RDW 22.7 % (13.2-15.2) H 06/23/21 05:33 Plt Count 265 K/mm3 (140-440) 06/23/21 05:33 Worth % (Auto) Daub Color Mixer 06/23/21 05:33 Add Manual Diff Complete 06/23/21 05:33 Total Counted 100 06/23/21 05:33 Seg Neuts % (Manual) 67.0 % (40.0-70.0) 06/23/21 05:33 Band Neutrophils % 0 % 06/23/21 05:33 Lymphocytes % (Manual) 20.0 % (13.4-35.0) 06/23/21 05:33 Reactive Lymphs % (Man) 0 % 06/23/21 05:33 Monocytes % (Manual) 9.0 % (0.0-7.3) H 06/23/21 05:33 Eosinophils % (Manual) 4.0 % (0.0-4.3) 06/23/21 05:33 Basophils % (Manual) 0 % (0.0-1.8) 06/23/21 05:33 Metamyelocytes % 0 % 06/23/21 05:33 Myelocytes % 0 % 06/23/21 05:33 Promyelocytes % 0 % 06/23/21 05:33 Blast Cells % 0 % 06/23/21 05:33 Nucleated RBC % Not Reportable 06/23/21 05:33 Seg Neutrophils # Man 3.1 K/mm3 (1.8-7.7) 06/23/21 05:33 Band Neutrophils # 0.0 K/mm3 06/23/21 05:33 Lymphocytes # (Manual) 0.9 K/mm3 (1.2-5.4) L 06/23/21 05:33 Abs React Lymphs (Man) 0.0 K/mm3 06/23/21 05:33 Monocytes # (Manual) 0.4 K/mm3 (0.0-0.8) 06/23/21 05:33 Eosinophils # (Manual) 0.2 K/mm3 (0.0-0.4) 06/23/21 05:33 Basophils # (Manual) 0.0 K/mm3 (0.0-0.1) 06/23/21 05:33 Metamyelocytes # 0.0 K/mm3 06/23/21 05:33 Myelocytes # 0.0 K/mm3 06/23/21 05:33 Promyelocytes # 0.0 K/mm3 06/23/21 05:33 Blast Cells # 0.0 K/mm3 06/23/21 05:33 WBC Morphology Not Reportable 06/23/21 05:33 Hypersegmented Neuts Not Reportable 06/23/21 05:33 Hyposegmented Neuts Not Reportable 06/23/21 05:33 Hypogranular Neuts Not Reportable 06/23/21 05:33 Smudge Cells Not Reportable 06/23/21 05:33 Toxic Granulation Not Reportable 06/23/21 05:33 Toxic Vacuolation Not Reportable 06/23/21 05:33 Dohle Bodies Not Reportable 06/23/21 05:33 Pelger-Huet Anomaly Not Reportable 06/23/21 05:33 Karishma Rods Not Reportable 06/23/21 05:33 Platelet Estimate Consistent w auto 06/23/21 05:33 Clumped Platelets Not Reportable 06/23/21 05:33 Plt Clumps, EDTA Not Reportable 06/23/21 05:33 Large Platelets Not Reportable 06/23/21 05:33 Giant Platelets Not Reportable 06/23/21 05:33 Platelet Satelliting Not Reportable 06/23/21 05:33 Plt Morphology Comment Not Reportable 06/23/21 05:33 RBC Morphology Not Reportable 06/23/21 05:33 Dimorphic RBCs Not Reportable 06/23/21 05:33 Polychromasia Not Reportable 06/23/21 05:33 Hypochromasia Not Reportable 06/23/21 05:33 Poikilocytosis Not Reportable 06/23/21 05:33 Anisocytosis 1+ 06/23/21 05:33 Microcytosis Not Reportable 06/23/21 05:33 Macrocytosis Not Reportable 06/23/21 05:33 Spherocytes Not Reportable 06/23/21 05:33 Pappenheimer Bodies Not Reportable 06/23/21 05:33 Sickle Cells Not Reportable 06/23/21 05:33 Target Cells Not Reportable 06/23/21 05:33 Tear Drop Cells Rare 06/23/21 05:33 Ovalocytes Rare 06/23/21 05:33 Helmet Cells Not Reportable 06/23/21 05:33 Bragg-Laverne Bodies Not Reportable 06/23/21 05:33 Matlock Rings Not Reportable 06/23/21 05:33 [place] Cells Not Reportable 06/23/21 05:33 Bite Cells Not Reportable 06/23/21 05:33 Crenated Cell Not Reportable 06/23/21 05:33 Elliptocytes Not Reportable 06/23/21 05:33 Acanthocytes (Spur) Not Reportable 06/23/21 05:33 Rouleaux Not Reportable 06/23/21 05:33 Hemoglobin C Crystals Not Reportable 06/23/21 05:33 Schistocytes Not Reportable 06/23/21 05:33 Malaria parasites Not Reportable 06/23/21 05:33 Angus Bodies Not Reportable 06/23/21 05:33 Hem Pathologist Commnt No 06/23/21 05:33 Sodium 133 mmol/L (137-145) L 06/23/21 05:33 Potassium 3.4 mmol/L (3.6-5.0) L 06/23/21 05:33 Chloride 101.8 mmol/L (98-107) 06/23/21 05:33 Carbon Dioxide 18 mmol/L (22-30) L 06/23/21 05:33 Anion Gap 17 mmol/L 06/23/21 05:33 BUN 37 mg/dL (9-20) H 06/23/21 05:33 Creatinine 3.2 mg/dL (0.8-1.3) H 06/23/21 05:33 Estimated GFR 26 ml/min 06/23/21 05:33 BUN/Creatinine Ratio 12 % 06/23/21 05:33 Glucose 102 mg/dL (75-100) H 06/23/21 05:33 Calcium 8.5 mg/dL (8.4-10.2) 06/23/21 05:33 Phosphorus 4.20 mg/dL (2.5-4.5) 06/23/21 05:33 Total Bilirubin 0.20 mg/dL (0.1-1.2) 06/22/21 05:59 AST 27 units/L (5-40) 06/22/21 05:59 ALT 20 units/L (7-56) 06/22/21 05:59 Alkaline Phosphatase 85 units/L (35-129) 06/22/21 05:59 Total Protein 8.1 g/dL (6.3-8.2) 06/22/21 05:59 Albumin 3.2 g/dL (3.9-5) L 06/22/21 05:59 Albumin/Globulin Ratio 0.7 % 06/22/21 05:59 TSH 1.710 mlU/mL (0.270-4.200) 06/22/21 06:51 Free T4 0.72 ng/dL (0.76-1.46) L 06/22/21 06:51 Krishnan/IV: Voiding Method Urinal Active Medications - Current Medications Current Medications: Generic Name Dose Route Start Last Admin Trade Name Freq PRN Reason Stop Dose Admin Acetaminophen 650 mg 06/22/21 08:00 06/23/21 06:04 Acetaminophen 325 Mg Tab PO 650 mg Q4H PRN Administration Pain MILD(1-3)/Fever >100.5/LANGLEY Albuterol 2.5 mg 06/22/21 08:00 Albuterol 2.5 Mg/3 Ml Nebu IH Q3HRT PRN Shortness Of Breath Alprazolam 0.25 mg 06/22/21 08:39 06/22/21 22:20 Alprazolam 0.25 Mg Tab PO 0.25 mg Q12HR PRN Administration Anxiety Cholecalciferol 1,000 unit 06/22/21 10:00 06/23/21 09:18 Cholecalciferol (Vit D3) 1000 Unit (25 Mcg) Tab PO 1,000 unit QDAY SANTOS Administration Darunavir 800 mg 06/22/21 10:00 06/22/21 10:07 Darunavir 800 Mg Tab PO 800 mg QDAY SANTOS Administration Dolutegravir Sodium 50 mg 06/22/21 10:00 06/23/21 09:18 Dolutegravir 50 Mg Tab PO 50 mg QDAY SANTOS Administration Guaifenesin 200 mg 06/22/21 22:06 06/22/21 22:21 Guaifenesin 100 Mg/5 Ml Oral Liqd PO 200 mg Q6H PRN Administration Cough Hydralazine HCl 10 mg 06/22/21 08:00 Hydralazine 20 Mg/1 Ml Inj IV Q4H PRN Hypertension Lamivudine 100 mg 06/22/21 10:00 06/23/21 09:12 Lamivudine 50 Mg/5 Ml Oral Liqd PO 100 mg DAILY SANTOS Administration Metoprolol Succinate 100 mg 06/23/21 09:00 06/23/21 09:12 Metoprolol Succinate Xl 100 Mg Tab PO 100 mg QDAY SANTOS Administration Morphine Sulfate 2 mg 06/22/21 08:00 Morphine 2 Mg/1 Ml Inj IV Q4H PRN Pain, Moderate (4-6) Multivitamins 1 each 06/22/21 10:00 06/23/21 09:18 Multivitamins ,Therapeutic Tab PO 1 each DAILY SANTOS Administration Naloxone HCl 0.1 mg 06/22/21 08:00 Naloxone 0.4 Mg/1 Ml Inj IV Q2MIN PRN Res Rate </= 8 or 02 SAT < 92% Ondansetron HCl 4 mg 06/22/21 08:00 Ondansetron 4 Mg/2 Ml Inj IV Q4H PRN Nausea And Vomiting Ritonavir 100 mg 06/22/21 10:00 06/23/21 09:13 Ritonavir 100 Mg Tab PO 100 mg QDAY SANTOS Administration Senna 8.6 mg 06/22/21 10:00 06/23/21 09:17 Sennosides 8.6 Mg Tab PO 8.6 mg Q12HR SANTOS Administration Sodium Bicarbonate 1,300 mg 06/22/21 08:00 06/23/21 08:34 Sodium Bicarbonate 650 Mg Tab PO 1,300 mg TID SANTOS Administration Sodium Chloride 10 ml 06/22/21 10:00 06/23/21 09:18 Sodium Chloride 0.9% 10 Ml Flush Syringe IV 10 ml BID SANTOS Administration Sodium Chloride 10 ml 06/22/21 08:00 Sodium Chloride 0.9% 10 Ml Flush Syringe IV PRN PRN LINE FLUSH Nutrition/Malnutrition Assess - Dietary Evaluation Nutrition/Malnutrition Findings: Nutrition Notes Start: 06/22/21 15:28 Freq: Status: Active Protocol: Document 06/22/21 15:28 DALY (Rec: 06/22/21 15:55 DALY [id number]) Nutrition Notes Need for Assessment generated from: Low BMI Initial or Follow up Assessment Current Diagnosis CKD(stage I-IV),Hypertension, Respiratory Failure Other Pertinent Diagnosis ESRD+HD, Tachycardia, Nephropathy, Anemia, HIV/AIDS, s/p COVID-19... Current Diet Renal Diet (since B 06/22). Labs/Tests 06/22: Na 133, CO2 17, BUN 36, Crea 3.0, Glu 104. Pertinent Medications 06/22: Vit D3, others nutritionally unremarkable. Height 6 ft 2 in Weight 61.235 kg Amelia Body Weight (kg) 86.36 BMI 17.3 Intake Prior to Admission Good Weight change and time frame Pt denies having loss body weight recently. Weight Status Underweight Subjective/Other Information RD consult for Low BMI assessment. Pt's PO intake of foods has been Fair (50%), according to ADL notes. Pt shows improvement of renal function, based on GFR, according to Progress notes. Pt has 2 weeks without HD and shows no pulmonary edema, according to Progress notes. On previous visit, on 06/01, Pt's body weight increased from 55.8 to 60.6; in this visit, Pt shows consistency at 61.235 Kg. Pt has gained 0. 635 Kg in the last 3 weeks. Pt's Low BMI seems to correspond to a natural body composition, and (with no more body weight fluctuations), not related to a sudden loss of body weight nor chronic malnutrition, since none were mentioned in the Physical Assessment History or the Progress notes. Percent of energy/protein needs met: Prescribed Renal Diet provides for energy/protein needs (2, 072 Kcal/77 g) during LOS. Burn Absent Trauma Absent GI Symptoms None Food Allergy No Skin Integrity/Comment Assessment WNL. Current % PO Fair (50-74%) Minimum of two criteria No #1 Nutrition Diagnosis No nutrition diagnosis at this time Is patient on ventilator? No Is Patient Ambulatory and/or Out of Bed Yes [facility] [ 2062. NUTR.[id number]] Calculation Used for Recommendations [place] Additional Notes Protein: >1.2 g/Kg ABW; >73 g/ day. Fluids: 1 ml/Kcal, or as per MD. Nutrition Intervention Revisit per MD consult or patient Sign Off request: Additional Comments Continue monitoring food tolerance, %PO intake of meals , and BM.
[2021-06-23] MEDS: DARUNAVIR 800 MG TAB PO SCH (12:21)
[2021-06-23 14:00] LABS: Creatinine 24 Hour,Urine 1.1 (0.8-2.8); Creatinine,Urine 88.2 mg/dL (0.1-20.0)
--- NOTE | 2021-06-23 14:21 | Electrocardiograph Report ---
[facility] Test Date: 2021-06-22 Test Time: 06:43:50 Pat Name: YOKASTA HOLDER Department: Room: A374 1 Gender: M Crate Icer: [id number] : 1980 Requested By: KATHE HERNANDEZ Order Number: [id number] Reading MD: James Christensen Measurements Intervals [place] Rate: 121 P: 63 WV: 133 QRS: 69 QRSD: 74 T: 57 QT: 325 QTc: 461 Interpretive Statements Sinus tachycardia Compared to ECG 06/14/2021 07:51:53 No significant changes Electronically Signed On 06-23-2021 14:20:59 EDT by James Christensen
[2021-06-23] MEDS ORDERED: LORazepam 2 MG/ML VIAL IV NR (14:30)
[2021-06-23] MEDS ORDERED: LIDOCAINE 1%/EPINEPHRINE 1:100,000 VIAL (20 ML) INFILTRATI NR (14:31)
[2021-06-23] MEDS ORDERED: LIDOCAINE (1%) 10 MG/1 ML VIAL 20 ML MDV INFILTRATI ONE (15:00)
[2021-06-23 15:04] LABS: Bilirubin,Urine NEG (Negative); Blood,Urine NEG (Negative); Color,Urine Yellow (Yellow); Mucus,Urine FEW /HPF; Urobilinogen,Urine < 2.0 mg/dL (<2.0)
--- NOTE | 2021-06-23 15:23 | Consultation ---
History of Present Illness - Reason for Consult Consult date: 06/23/21 Removal of Permacath Requesting physician: JOE DIAZ - History of Present Illness The patient is a 41-year-old male with a history of hypertension, HIV, and renal failure who was started on hemodialysis May 11, 2021 through a right internal jugular permacath. He was unable to find placement in an outpatient dialysis center so he presented to the hospital for dialysis treatment. He presented to the emergency department with complaints of shortness of breath and his last dialysis session being 8 days prior. Review of his labs revealed improvement of his renal failure so he is no longer in need of his permacath. He has no additional complaints at this time. Past History Past Medical History: HIV/AIDS, hypertension, hyperlipidemia, renal failure Past Surgical History: No surgical history Social history: Family history: no significant family history Medications and Allergies Allergies Allergy/AdvReac Type Severity Reaction Status Date / Time No Known Allergies Allergy Verified 06/14/21 09:15 Home Medications Medication Instructions Recorded Confirmed Last Taken Type Multivit-Min/Folic/Vit K/Lycop 1 tab PO QDAY 04/21/21 06/09/21 06/14/21 08:00 History [Men's Multivitamin Tablet] Cholecalciferol Vit D3 [Vitamin D3 1,000 unit PO QDAY #30 tablet 05/26/21 06/22/21 06/14/21 08:00 Rx 1,000 UNIT TAB] Darunavir [Prezista] 800 mg PO QDAY #14 tablet 05/26/21 06/22/21 06/14/21 08:00 Rx Dolutegravir [Tivicay] 50 mg PO QDAY #14 tablet 05/26/21 06/22/21 06/14/21 08:00 Rx Ritonavir 100 mg PO QDAY #14 tab 05/26/21 06/22/21 06/14/21 08:00 Rx Sodium Bicarbonate 1,300 mg PO TID #90 tablet 05/26/21 06/22/21 06/14/21 08:00 Rx lamiVUDine [Epivir Hbv] 100 mg PO QDAY #14 tab 05/26/21 06/22/21 06/14/21 08:00 Rx Metoprolol Xl [Metoprolol 25 mg PO QDAY #30 tablet 06/07/21 06/22/21 06/14/21 08:00 Rx SUCCINATE ER TAB] Active Meds: Active Medications Acetaminophen (Acetaminophen 325 Mg Tab) 650 mg PO Q4H PRN PRN Reason: Pain MILD(1-3)/Fever >100.5/LANGLEY Last Admin: 06/23/21 06:04 Dose: 650 mg Albuterol (Albuterol 2.5 Mg/3 Ml Nebu) 2.5 mg IH Q3HRT PRN PRN Reason: Shortness Of Breath Alprazolam (Alprazolam 0.25 Mg Tab) 0.25 mg PO Q12HR PRN PRN Reason: Anxiety Last Admin: 06/22/21 22:20 Dose: 0.25 mg Cholecalciferol (Cholecalciferol (Vit D3) 1000 Unit (25 Mcg) Tab) 1,000 unit PO QDAY [facility] Last Admin: 06/23/21 09:18 Dose: 1,000 unit Darunavir (Darunavir 800 Mg Tab) 800 mg PO QDAY [facility] Last Admin: 06/23/21 12:21 Dose: 800 mg Dolutegravir Sodium (Dolutegravir 50 Mg Tab) 50 mg PO QDAY [facility] Last Admin: 06/23/21 09:18 Dose: 50 mg Guaifenesin (Guaifenesin 100 Mg/5 Ml Oral Liqd) 200 mg PO Q6H PRN PRN Reason: Cough Last Admin: 06/22/21 22:21 Dose: 200 mg Hydralazine HCl (Hydralazine 20 Mg/1 Ml Inj) 10 mg IV Q4H PRN PRN Reason: Hypertension Lamivudine (Lamivudine 50 Mg/5 Ml Oral Liqd) 100 mg PO DAILY [facility] Last Admin: 06/23/21 09:12 Dose: 100 mg Lorazepam (Lorazepam 2 Mg/Ml Vial) 1 mg IV ONCE NR Stop: 06/23/21 15:30 Metoprolol Succinate (Metoprolol Succinate Xl 100 Mg Tab) 100 mg PO QDAY [facility] Last Admin: 06/23/21 09:12 Dose: 100 mg Morphine Sulfate (Morphine 2 Mg/1 Ml Inj) 2 mg IV Q4H PRN PRN Reason: Pain, Moderate (4-6) Multivitamins (Multivitamins ,Therapeutic Tab) 1 each PO DAILY [facility] Last Admin: 06/23/21 09:18 Dose: 1 each Naloxone HCl (Naloxone 0.4 Mg/1 Ml Inj) 0.1 mg IV Q2MIN PRN PRN Reason: Res Rate </= 8 or 02 SAT < 92% Ondansetron HCl (Ondansetron 4 Mg/2 Ml Inj) 4 mg IV Q4H PRN PRN Reason: Nausea And Vomiting Ritonavir (Ritonavir 100 Mg Tab) 100 mg PO QDAY [facility] Last Admin: 06/23/21 09:13 Dose: 100 mg Senna (Sennosides 8.6 Mg Tab) 8.6 mg PO Q12HR [facility] Last Admin: 06/23/21 09:17 Dose: 8.6 mg Sodium Bicarbonate (Sodium Bicarbonate 650 Mg Tab) 1,300 mg PO TID [facility] Last Admin: 06/23/21 08:34 Dose: 1,300 mg Sodium Chloride (Sodium Chloride 0.9% 10 Ml Flush Syringe) 10 ml IV BID [facility] Last Admin: 06/23/21 09:18 Dose: 10 ml Sodium Chloride (Sodium Chloride 0.9% 10 Ml Flush Syringe) 10 ml IV PRN PRN PRN Reason: LINE FLUSH Review of Systems All systems: negative Exam - Constitutional Vitals: Temp Pulse Resp BP Pulse Ox 98.5 F 108 H 18 119/83 100 06/23/21 11:25 06/23/21 11:25 06/23/21 11:25 06/23/21 11:25 06/23/21 11:25 General appearance: Present: no acute distress - Neck Neck: Present: supple, other (Right internal jugular permacath is without overt signs of infection) - Respiratory Respiratory effort: normal - Cardiovascular Rhythm: regular - Extremities Extremities: no ischemia - Abdominal General gastrointestinal: Present: soft Male genitourinary: Present: deferred - Rectal Rectal Exam: deferred Results - Labs CBC & Chem 7: 06/23/21 05:33 06/23/21 05:33 Labs: Abnormal lab results 06/22/21 06/23/21 06/23/21 Range/Units 13:00 05:33 05:33 RBC 2.57 L (3.65-5.03) M/mm3 Hgb 8.3 L (11.8-15.2) gm/dl Hct 25.5 L (35.5-45.6) % MCV 99 H (84-94) fl RDW 22.7 H (13.2-15.2) % Monocytes % (Manual) 9.0 H (0.0-7.3) % Lymphocytes # (Manual) 0.9 L (1.2-5.4) K/mm3 Sodium 133 L (137-145) mmol/L Potassium 3.4 L (3.6-5.0) mmol/L Carbon Dioxide 18 L (22-30) mmol/L BUN 37 H (9-20) mg/dL Creatinine 3.2 H (0.8-1.3) mg/dL Glucose 102 H (75-100) mg/dL Urine Creatinine 88.2 H (0.1-20.0) mg/dL Assessment and Plan The patient is a 41-year-old male with a history of multiple medical problems including end-stage renal disease. He now has improvement of his renal function and no longer requires the use of a permacath for dialysis. He is in need of permacath removal. He was given the risk, benefits, and alternative procedures and has consented to the procedure.
--- NOTE | 2021-06-23 15:26 | Operative Report ---
Operative Report Operative Report: Date of Procedure: 06/23/2021 Pre-operative Diagnosis: Improve Renal Function No Longer Requiring Permacath Post-operative Diagnosis: Same Procedure(s): 1. Removal of Right Internal Jugular Permacath Surgeon: Zeus Mendoza M.D. See Supervisor: John Anesthesia: 1% Lidocaine EBL: None Counts: Correct Complications: None Condition: Stable Findings: Permacath was removed and found to be completely intact. Specimen: Right internal jugular permacath was discarded. Indication: The patient is a 41-year-old male with a history of renal failure who was previously on hemodialysis through a right internal jugular permacath. He has improvement of his renal function and no longer requires dialysis and therefore no longer requires the use of his permacath. He is in need of permacath removal. He was given the risk, benefits, and alternative procedures and consented to the procedure. Description of Procedure: The procedure was performed at the patient's bedside. After informed consent was obtained the patient's right neck, chest, and indwelling catheter were prepped and draped in normal sterile fashion. 1% lidocaine was then used to anesthetize the skin and soft tissue at the exit site on his chest and up to the cuff on the permacath. A curved hemostat was then used to bluntly dissect the cuff free from the surrounding tissue. Once the cuff was free the permacath was removed and manual pressure was held on the internal jugular entry site until hemostasis was achieved. Once hemostasis was achieved and occlusive dressing with Xeroform gauze, 4 x 4 gauze, and Tegaderm were placed. The patient tolerated the procedure well. All sponge, needle, and instrument counts were correct. The patient remained in his room in stable condition.
[2021-06-23] MEDS ORDERED: POTASSIUM CHLORIDE ER 20 MEQ TAB PO ONE (16:25)
[2021-06-23] MEDS: ALPRAZolam 0.25 MG TAB PO PRN (22:10)
[2021-06-24] MEDS: ACETAMINOPHEN 325 MG TAB PO PRN (01:03)
[2021-06-24 04:23] VITALS: BP 111/87
--- NOTE | 2021-06-24 07:35 | Discharge Summary ---
Providers - Providers Date of Admission: 06/22/21 07:30 Attending physician: JOE DIAZ MD 06/22/21 Consult to Case Management [CONS] Routine Services Needed at Discharge: [employer] Fab[employer] Inspector Notified:: no Additional Physician Instructions: hd chair time 06/22/21 07:06 Consult to Physician [CONS] Urgent Comment: Consulting Provider: MARLO ALCANTARA Physician Instructions: Reason For Exam: esrd needing dialysis 06/23/21 11:58 Consult to Physician [CONS] Routine Comment: Consulting Provider: SATHYA FRANCE Physician Instructions: Reason For Exam: DIALYSIS CATHETER REMOVAL Primary care physician: PLANT SUPERVISOR Hospitalization Condition: Stable Disposition: 30 STILL A PATIENT Exam - Constitutional Vitals: Temp Pulse Resp BP Pulse Ox 98.5 F 133 H 20 111/87 96 06/24/21 04:22 06/23/21 22:15 06/24/21 04:22 06/24/21 04:22 06/23/21 23:00 Plan Care Plan Goals: Please make sure to follow-up with your primary care doctor and infectious disease specialist. Please follow-up with nephrology to continue to monitor your kidney function. Avoid taking NSAIDs (i.e. ibuprofen, naproxen, diclofenax, high dose aspirin) to help preserve your kidney function. Follow up with: HARPER SNOW MD [Primary Care Provider] - 3-5 Days MARLO ALCANTARA MD [Staff Physician] - 14 Days Prescriptions: Metoprolol Xl [Metoprolol SUCCINATE ER TAB] 50 mg PO QDAY 30 Days #30 tablet Sodium Bicarbonate 1,300 mg PO TID 30 Days #180 tablet
[2021-06-24 08:05] LABS: Calcium 9.1 mg/dL (8.4-10.2)
== END 2021-06-24 10:05 | disposition home or self-care (01) | DRG 189 ==
LOC: ED 05:12 → 3A 07:30
PROVIDERS: ADMIT Internal Medicine; ATTEND Student in an Organized Health Care Education/Training Program
PROC: 0JPT3XZ Removal of Tunneled Vascular Access Device from Trunk Subcutaneous Tissue and Fascia, Percutaneous Approach (ICD-10-PCS; principal; 2021-06-23)
PROC: 05PYX3Z Removal of Infusion Device from Upper Vein, External Approach (ICD-10-PCS; 2021-06-23)
DX: J96.01 Acute respiratory failure with hypoxia (principal); N18.6 End stage renal disease; E87.2 Acidosis; I12.0 Hypertensive chronic kidney disease with stage 5 chronic kidney disease or end stage renal disease; B20 Human immunodeficiency virus [HIV] disease; Z99.2 Dependence on renal dialysis; R00.0 Tachycardia, unspecified; E78.5 Hyperlipidemia, unspecified; D63.8 Anemia in other chronic diseases classified elsewhere; I16.0 Hypertensive urgency
CPT/HCPCS: 36415; 71045; 80048; 80053; 81001; 82570; 84100; 84439; 84443; 85007; 85025; 93005; 94640; G0378; J3490; J2060